=== PATIENT | male | born 1960 | race Hispanic/Latino ===

== ENCOUNTER 2017-11-30 15:38 | Emergency (ER) | payer OTHER ==
[~2017-11-30] VITALS: Ht 172.7 cm; Wt 113.4 kg
--- OUTSIDE RECORDS SUMMARY | 2017-11-30 15:40 | XMS REPORT | Summary of Care ---
Author Author FABIANA KAY D.O. Unknown Address Unknown Phone Unavailable Care Team Providers Care Oil Painter Name Role Phone SJ LANIER M.D. 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, M47.816) Status: Active Osteoarthritis of spine with radiculopathy, lumbar region (721.3, M47.26) Status: Active Upper back pain (724.5, M54.9) Status: Active Osteoarthritis of spine with radiculopathy, cervical region (721.0, M47.22) Status: Active Lumbar disc herniation (722.10, M51.26) Status: Active Central spinal stenosis (724.00, M48.00) Status: Active Dysphagia (787.20, R13.10) Status: Active Encounter to establish care with new doctor (V65.8, Z76.89) Status: Active Right upper quadrant abdominal pain (789.01, R10.11) Status: Active Gastritis (535.50, K29.70) Status: Active Low back pain (724.2, M54.5) Status: Active Acute URI (465.9, J06.9) Status: Active Candidal intertrigo (112.3, B37.2) Status: Active Shortness of breath (786.05, R06.02) Status: Active Sleep apnea (780.57, G47.30) Status: Active Tonsillar enlargement (474.11, J35.1) Status: Active Chronic obstructive pulmonary disease, unspecified COPD type (496, J44.9) Status: Active Chronic pain syndrome (338.4, G89.4) Status: Active External hemorrhoid, bleeding (455.5, K64.4) Status: Active Chronic respiratory failure with hypoxia (518.83, J96.11) Status: Active Allergic rhinitis (477.9, J30.9) Status: Active Deviated nasal septum (470, J34.2) Status: Active Chronic cough (786.2, R05) Status: Active Dysphonia (784.42, R49.0) Status: Active Medications Name Dates Details Fluticasone Propionate 50 MCG/ACT Nasal Suspension USE 1 SPRAY IN EACH NOSTRIL TWICE DAILY. Quantity: 1 SJ LANIER M.D. Start : 05-Oct-2017 Active 9.9 ML Bottle Allergies and Adverse Reactions Name Dates Details No Known Allergies (Allergy) Status: Active Past Medical History Name Dates Details History of backache (V13.59, Z87.39) Status: Resolved History of No pertinent past surgical history Status: Resolved History of Osteoarthritis of spine with radiculopathy, cervical region (721.0, M47.22) Status: Resolved Procedures Procedure Dates Details US Abdomen RUQ 61063 Date: 21-Aug-2017 CT Chest w/wo contrast 95226 Date: 28-Sep-2017 CT Abdomen/Pelvis w/wo contrast 49475 Date: 28-Sep-2017 Immunization Name Dates Details Immunizations not documented Family History Name Dates Details No pertinent family history Comments: Other Status: Active Name Dates Details Family history of hypertension (V17.49, Z82.49) Status: Active Family history of arthritis (V17.7, Z82.61) Status: Active Family history of diabetes mellitus (V18.0, Z83.3) Status: Active Name Dates Details Family history of hypertension (V17.49, Z82.49) Status: Active Family history of arthritis (V17.7, Z82.61) Status: Active Family history of diabetes mellitus (V18.0, Z83.3) Status: Active Social History Name Dates Details - Status: Name Dates Details Never smoker Vital Signs Date Test Result Details 0-Ljn-[id number]:03 BP Systolic 120 mm[Hg] Status: BP Diastolic 82 mm[Hg] Status: Height 68 in Status: Weight 248.5 lb Status: Body Mass Index Calculated 37.78 kg/m2 Status: Body Surface Area Calculated 2.24 m2 Status: Heart Rate 76 /min Status: 34-Bwv-032383:33 BP Systolic 125 mm[Hg] Status: Comments: Location: RUE; Position: Sitting BP Diastolic 86 mm[Hg] Status: Comments: Location: RUE; Position: Sitting Height 68 in Status: Weight 255 lb Status: Body Mass Index Calculated 38.77 kg/m2 Status: Body Surface Area Calculated 2.27 m2 Status: Heart Rate 86 /min Status: Temperature 98 f Status: O2 SAT 100 % Status: :32 BP Systolic 118 mm[Hg] Status: Comments: Location: RUE; Position: Sitting BP Diastolic 86 mm[Hg] Status: Comments: Location: RUE; Position: Sitting Height 68 in Status: Weight 254 lb Status: Body Mass Index Calculated 38.62 kg/m2 Status: Body Surface Area Calculated 2.26 m2 Status: Heart Rate 88 /min Status: Temperature 98 f Status: Comments: Method: Oral Results Date Description Value Details [id number]:00 Tobacco Use Screening Completed DONE [id number] CT Chest/Abd/Pelvis w/wo contrast 92821 Chest/Abd/Pelvis w/wo contrast CT SEE NOTES Comments: CLINICAL HISTORY: R06.02 Shortness of breath;R10.11 Right upper quadrantpain - R06.02 Shortness of breath;R10.11 Right upper quadrant painAGE: 57 yearsGENDER: MaleTECHNIQUE: Pre and postcontrast CT of the chest, abdomen and pelvis wasperformed. Multiplanar reconstructions were reviewed. A total of 100 cc ofOmnipaque 300 was administered intravenously. AEC, mA /kV adjustment by patientsize, and/or iterative reconstructive technique were used, per departmentaldose-optimization program.Creatinine: 0.9DLP: 2937 mGy-cmCOMPARISON : None availableFINDINGS:CHEST:There is no pericardial effusion. Mild to moderate atheroscleroticcalcification of the thoracic aorta and coronary arteries. The heart size iswithin normal limits. No significant mediastinal or hilar adenopathy is seen.There are no focal airspace or interstitial opacities. No pleural effusions. No suspicious pulmonary nodules or masses are identified.The visualized osseous structures are unremarkable.ABDOMEN AND PELVIS :The liver, spleen, pancreas and adrenal glands are unremarkable.The gallbladder is present. There is no evidence of cholelithiasis, gallbladderwall thickening or pericholecystic fluid..There is no CT evidence of hydronephrosis. There is no hydroureter. Nonephrolithiasis.No significant retroperitoneal adenopathy is seen.There is no significant atherosclerotic calcification of the abdominal aorta.There is no evidence of abdominal aortic aneurysm.The large bowel is unremarkable. . The small bowel is normal in caliber withoutevidence of obstruction. The appendix is visualized without evidence ofsurrounding inflammatory change, dilatation or wall thickening. There is no significant free fluid in the abdomen or pelvis.The bladder is partially collapsed. No significant pelvic adenopathy is seen. Degenerative changes in the lumbar spine , mild.IMPRESSION:No CT evidence of primary or metastatic disease in the chest, abdomen orpelvis.Mild to moderate atherosclerotic calcification of the thoracic aorta andcoronary arteries.--Read by: Jasen Campa MDDictated Date/ time: 10/03/17 09:28Electronically Signed by: Jasen Campa MD 10/03/1808:39FINAL REPORT Plan of Care Name Dates Details Planned Observations Planned Goals not documented Planned Encounters Appointment; ARABELLA TUCKER M.D. On: 21-Oct-2017 13:30 Appointment; JANET PATTERSON On: 21-Oct-2017 14:30 Instructions Name Dates Details Instructions not documented Encounters Appointment; LAYO MARSHALL M.D. Encounter Diagnosis: Problem not documented On: 08-Oct-2015 9:00 Appointment; LAYO MARSHALL M.D. Encounter Diagnosis: Problem not documented On: 17-Oct-2015 9:15 Appointment; AMANDA WU M.D. Encounter Diagnosis: Problem not documented On: 23-Oct-2015 11:45 Appointment; LAYO MARSHALL M.D. Encounter Diagnosis: Problem not documented On: 14-Nov-2015 10:30 Appointment; BORA CASTAÑEDA Encounter Diagnosis: Problem not documented On: 14-Apr-2017 11:00 Appointment; LAYO ARNETT Encounter Diagnosis: Problem not documented On: 02-Jun-2017 15:15 Appointment; FABIANA KAY D.O. Encounter Diagnosis: Problem not documented On: 30-Jun-2017 9:20 Appointment; LAYO ARNETT Encounter Diagnosis: Problem not documented On: 17-Jul-2017 10:30 Appointment; FABIANA KAY D.O. Encounter Diagnosis: Problem not documented On: 24-Jul-2017 14:00 Appointment; FABIANA KAY D.O. Encounter Diagnosis: Problem not documented On: 05-Aug-2017 14:00 Appointment; LAYO ARNETT Encounter Diagnosis: Problem not documented On: 25-Aug-2017 14:30 Appointment; FABIANA KAY D.O. Encounter Diagnosis: Problem not documented On: 09-Sep-2017 14:00 Appointment; ARABELLA TUCKER M.D. Encounter Diagnosis: Problem not documented On: 09-Sep-2017 15:00 Appointment; JANET PATTERSON Encounter Diagnosis: Problem not documented On: 09-Sep-2017 16:00 Appointment; FABIANA KAY D.O. Encounter Diagnosis: Problem not documented On: 22-Sep-2017 16:20 Appointment; SJ LANIER M.D. Encounter Diagnosis: Problem not documented On: 05-Oct-2017 9:45
--- OUTSIDE RECORDS SUMMARY | 2017-11-30 15:40 | XMS REPORT ---
Author Author [facility] Address Unknown Phone Unavailable Care Team Providers Care Outbound Sales Executive Name Role Phone Unavailable Unavailable Problems This patient has no known problems. Allergies, Adverse Reactions, Alerts This patient has no known allergies or adverse reactions. Medications This patient has no known medications.
--- OUTSIDE RECORDS SUMMARY | 2017-11-30 15:40 | XMS REPORT | Clinical Summary ---
Author Author [facility] Address Unknown Phone Unavailable Care Team Providers Care Classification Officer Name Role Phone Edilson Roberson MD PCP Allergies No Known Allergies Current Medications Not on file Active Problems Not on file Encounters Date Type Specialty Care Team Description 05/28/2017 Telephone Gastroenterology Adrianne Rogel, RN 05/23/2017 Emergency Emergency Medicine Tyler Spivey, Chronic generalized DO abdominal pain (Primary Dx); Drug-seeking behavior after 11/29/2016 Social History Tobacco Use Types Packs/Day Years Used Date Never Assessed Sex Assigned at Date Recorded Not on file Last Filed Vital Signs Vital Sign Reading Time Taken Blood Pressure 120/69 05/23/2017 5:45 AM [employer] Pulse 72 05/23/2017 5:45 AM [employer] Temperature 36.9 C (98.5 F) 05/23/2017 1:31 AM [employer] Respiratory Rate 18 05/23/2017 5:45 AM [employer] Oxygen Saturation 100% 05/23/2017 5:45 AM [employer] Inhaled Oxygen - - Concentration Weight 129 kg (285 lb) 05/23/2017 1:43 AM [employer] Height 172.7 cm (5' 8") 05/23/2017 1:43 AM [employer] Body Mass Index 43.33 05/23/2017 1:43 AM [employer] Plan of Treatment Health Maintenance Due Date Last Done Comments COLON CANCER SCREENING 2011 SHINGRIX VACCINE (#1) 2011 INFLUENZA VACCINE 2018 Results * Estimated GFR (05/23/2017 3:53 AM) Component Value Ref Range GFR Non Af Amer 77 mL/min/1.73 m2 GFR Af Amer >90 mL/min/1.73 m2 Comment: Chronic kidney disease: <60 mL/min/1.73m2 Kidney failure: <15 mL/min/1.73m2 The estimated GFR is calculated from the IDMS-traceable Modification of Diet in Renal Disease Equation. The accuracy of the calculation is poor when the creatinine is normal. Calculated values >90 mL/min/1.73m2 are not reported. This equation has not been validated in children (<18 years), women, the elderly (>70 years), or ethnic groups other than Caucasians and Americans. Specimen Performing Laboratory Plasma specimen [facility] DEPARTMENT OF PATHOLOGY AND GENOMIC MEDICINE [address] [place] [address] * CBC with platelet and differential (05/23/2017 3:53 AM) Component Value Ref Range WBC 8.10 4.50 - 11.00 k/uL RBC 4.58 4.40 - 6.00 m/uL HGB 14.5 14.0 - 18.0 g/dL HCT 42.6 41.0 - 51.0 % MCV 93.0 82.0 - 100.0 fL MCH 31.7 27.0 - 34.0 pg MCHC 34.0 31.0 - 37.0 g/dL RDW - SD 43.1 37.0 - 55.0 fL MPV 10.5 8.8 - 13.2 fL Platelet count 151 150 - 400 k/uL Nucleated RBC 0.00 /100 WBC Neutrophils 73.9 (H) 39.0 - 69.0 % Lymphocytes 18.0 (L) 25.0 - 45.0 % Monocytes 7.5 0.0 - 10.0 % Eosinophils 0.4 0.0 - 5.0 % Basophils 0.1 0.0 - 1.0 % Immature granulocytes 0.1Comment: "Immature granulocytes" 0.0 - 1.0 % (promyelocytes, myelocytes, metamyelocytes) Specimen Performing Laboratory Blood [facility] DEPARTMENT OF PATHOLOGY AND GENOMIC MEDICINE [address] [place] [id number] * Lipase level (05/23/2017 3:53 AM) Component Value Ref Range Lipase 23 13 - 60 U/L Specimen Performing Laboratory Plasma specimen [facility] DEPARTMENT OF PATHOLOGY AND [facility] [address] [place] [id number] * Lactic acid level (05/23/2017 3:53 AM) Component Value Ref Range Lactic acid 1.0 0.5 - 2.2 mmol/L Specimen Performing Laboratory Plasma specimen [facility]PARTMENT OF PATHOLOGY AND GENOMIC MEDICINE [address] [place] [id number] * Comprehensive metabolic panel (05/23/2017 3:53 AM) Component Value Ref Range Sodium 138 135 - 148 mEq/L Potassium 3.6 3.5 - 5.0 mEq/L Chloride 98 98 - 112 mEq/L CO2 27 24 - 31 mEq/L Anion gap 13 7 - 15 mEq/L Comment: Starting from September , anion gap calculation no longer incorporates potassium. Please note the change. BUN 9 6 - 20 mg/dL Creatinine 1.0 0.7 - 1.2 mg/dL Glucose 94 65 - 99 mg/dL Calcium 9.0 8.3 - 10.2 mg/dL Protein 7.1 6.3 - 8.3 g/dL Comment: 4.6-7.0 g/dL 1 week 4.4-7.6 g/dL 7 months-1year 5.1-7.3 g/dL 1-2 years 5.6-7.5 g/dL >3 years 6.0-8.0 g/dL 18-150 6.3-8.3 g/dL Albumin 3.4 (L) 3.5 - 5.0 g/dL A/G ratio 0.9 0.7 - 3.8 Alkaline phosphatase 67 40 - 129 U/L AST 24 10 - 50 U/L ALT 24 5 - 50 U/L Total bilirubin 0.7 0.0 - 1.2 mg/dL Specimen Performing Laboratory Plasma specimen [facility] DEPARTMENT OF PATHOLOGY AND GENOMIC MEDICINE [address] [place] [address] after 11/29/2016 Insurance Payer Benefit Subscriber ID Type Phone Address Plan / Group [employer] xxxxxxxxx O [employer] [facility] Home: [address] [place] [address] [address]
[2017-11-30 16:48] LABS: BASOPHILS % 0.1 % (0.0-1.0); EOSINOPHILS % 0.2 % (0.0-6.0); HEMOGLOBIN 13.7 g/dL (14.0-18.0); LYMPHOCYTES # (AUTO) 1.1 (1.0-3.2); LYMPHOCYTES % 12.6 % (18.0-39.1); MEAN CORPUSCULAR HEMOGLOBIN 31.8 pg (28-32); MEAN CORPUSCULAR HGB CONC 35.1 g/dL (31-35); MEAN CORPUSCULAR VOLUME 90.5 fL (81-99); MONOCYTES # (AUTO) 0.5 (0.2-0.8); MONOCYTES % 5.5 % (4.4-11.3); NEUTROPHILS # (AUTO) 6.8 (2.1-6.9); NEUTROPHILS % 81.4 % (38.7-80.0); PLATELET COUNT 155 x10e3/uL (140-360); RED BLOOD COUNT 4.31 x10e6/uL (4.3-5.7); RED CELL DISTRIBUTION WIDTH 12.6 % (11.7-14.4)
[2017-11-30 16:53] LABS: INR 1.19; PARTIAL THROMBOPLASTIN TIME 30.5 seconds (23.8-35.5); PROTHROMBIN TIME 14.2 seconds (11.9-14.5)
[2017-11-30 17:00] LABS: ALANINE AMINOTRANSFERASE 14 IU/L (0-55); ALBUMIN 3.5 g/dL (3.5-5.0); ALBUMIN/GLOBULIN RATIO 1.1 (0.8-2.0); ALKALINE PHOSPHATASE 67 IU/L (40-150); ANION GAP 10.5 mmol/L (8-16); BLOOD UREA NITROGEN 14 mg/dL (7-26); BUN/CREATININE RATIO 15 (6-25); CALCIUM 9.3 mg/dL (8.4-10.2); CARBON DIOXIDE 25 mmol/L (22-29); CHLORIDE 108 mmol/L (98-107); CREATINE KINASE 56 IU/L (30-200); CREATININE, SERUM 0.95 mg/dL (0.72-1.25); EST GLOMERULAR FILTRATION RATE > 60 ML/MIN (60-); GLUCOSE 99 mg/dL (74-118); POTASSIUM 3.5 mmol/L (3.5-5.1); SODIUM 140 mmol/L (136-145)
[2017-11-30] MEDS ORDERED: IBUPROFEN 400 MG TAB PO ONE (19:30)
[2017-11-30 19:57] VITALS: BP 122/87
--- NOTE | 2017-12-01 07:36 | Diagnostic Imaging Report ---
PROCEDURE:CHEST 1 VIEW PORTABLE COMPARISON:None. INDICATIONS:CHEST PAIN UNDER LEFT BREAST, COPD, SHORTNESS OF BREATH UPON EXERTION FINDINGS: Lungs are hypoinflated. Perihilar interstitial opacity especially in the infrahilar region. No pleural effusion or pneumothorax. Mild cardiomegaly. No fractures. Unremarkable soft tissue. CONCLUSION:Perihilar/infrahilar interstitial opacity, likely early interstitial edema. Superimposed pneumonia cannot be excluded. Dictated by: Keven Ruiz M.D. on 11/30/2017 at 18:09 Electronically approved by: Keven Ruiz M.D. on 11/30/2017 at 18:09
== END 2017-11-30 20:01 | disposition home or self-care (01) ==
LOC: ER 15:38
DX: R09.1 Pleurisy (principal); J44.9 Chronic obstructive pulmonary disease, unspecified
CPT/HCPCS: 36415; 71045; 80053; 82550; 82553; 83880; 84484; 85025; 85610; 85730; 93005; 99284

== ENCOUNTER 2018-03-13 12:21 | Emergency (ER) | payer OTHER ==
[~2018-03-13] VITALS: Ht 172.7 cm; Wt 102.1 kg
[2018-03-13 13:25] LABS: BASOPHILS % 0.1 % (0.0-1.0); EOSINOPHILS % 0.1 % (0.0-6.0); HEMATOCRIT 42.1 % (38.2-49.6); HEMOGLOBIN 14.5 g/dL (14.0-18.0); LYMPHOCYTES # (AUTO) 1.4 (1.0-3.2); MEAN CORPUSCULAR HGB CONC 34.4 g/dL (31-35); MEAN CORPUSCULAR VOLUME 95.9 fL (81-99); MONOCYTES # (AUTO) 0.4 (0.2-0.8); MONOCYTES % 5.9 % (4.4-11.3); NEUTROPHILS # (AUTO) 5.3 (2.1-6.9); NEUTROPHILS % 74.5 % (38.7-80.0); PLATELET COUNT 153 x10e3/uL (140-360); RED BLOOD COUNT 4.39 x10e6/uL (4.3-5.7); RED CELL DISTRIBUTION WIDTH 12.9 % (11.7-14.4)
[2018-03-13 13:37] LABS: CLARITY,URINE CLEAR (CLEAR); COLOR,URINE YELLOW (YELLOW)
[2018-03-13 13:38] LABS: BILIRUBIN,URINE NEGATIVE (NEGATIVE); KETONES,URINE NEGATIVE (NEGATIVE); LEUKOCYTE ESTERASE ,URINE NEGATIVE (NEGATIVE); NITRITE,URINE NEGATIVE (NEGATIVE); PROTEIN,URINE DIPSTICK NEGATIVE (NEGATIVE); URINE UROBILINOGEN 0.2 mg/dL (0.2 - 1)
[2018-03-13 13:39] LABS: BACTERIA,URINE RARE /HPF; EPITHELIAL CELLS,URINE RARE /LPF; RBC,URINE 0-5 /HPF (0-5); WBC,URINE (MAN) 0-5 /HPF (0-5)
[2018-03-13 13:39] LABS: ALANINE AMINOTRANSFERASE 13 IU/L (0-55); ALBUMIN 3.5 g/dL (3.5-5.0); ALBUMIN/GLOBULIN RATIO 1.1 (0.8-2.0); ALKALINE PHOSPHATASE 55 IU/L (40-150); ANION GAP 14.8 mmol/L (8-16); BLOOD UREA NITROGEN 13 mg/dL (7-26); BUN/CREATININE RATIO 16 (6-25); CALCIUM 9.3 mg/dL (8.4-10.2); CARBON DIOXIDE 24 mmol/L (22-29); CHLORIDE 105 mmol/L (98-107); CREATINE KINASE 39 IU/L (30-200); CREATININE, SERUM 0.82 mg/dL (0.72-1.25); EST GLOMERULAR FILTRATION RATE > 60 ML/MIN (60-); GLUCOSE 104 mg/dL (74-118); POTASSIUM 3.8 mmol/L (3.5-5.1); SODIUM 140 mmol/L (136-145)
--- NOTE | 2018-03-13 14:03 | Diagnostic Imaging Report ---
EXAMINATION: CHEST SINGLE (PORTABLE) INDICATION: \S\SOB/ABD PAIN COMPARISON: Chest x-ray 10/08/2007 FINDINGS: AP view TUBES and LINES: None. LUNGS: Lungs are well inflated. Lungs are clear. There is no evidence of pneumonia or pulmonary edema. PLEURA: No pleural effusion or pneumothorax. HEART AND MEDIASTINUM: The cardiomediastinal silhouette is unremarkable. BONES AND SOFT TISSUES: No acute osseous lesion. Soft tissues are unremarkable. UPPER ABDOMEN: No free air under the diaphragm. IMPRESSION: No acute thoracic abnormality. Signed by: Dr. Keven Ruiz M.D. on 03/13/2018 2:00 PM
[2018-03-13] MEDS ORDERED: FAMOTIDINE 20 MG/2 ML VIAL IV STA (15:17)
[2018-03-13 15:23] LABS: AMYLASE 73 U/L (25-125); LIPASE 31 U/L (8-78)
[2018-03-13] MEDS ORDERED: DICYCLOMINE HCL 20 MG/2 ML VIAL IM ONE (15:30)
== END 2018-03-13 16:20 | disposition home or self-care (01) ==
LOC: ER 12:21
DX: R10.84 Generalized abdominal pain (principal); J44.9 Chronic obstructive pulmonary disease, unspecified; Z87.891 Personal history of nicotine dependence
CPT/HCPCS: 36415; 71045; 80053; 81001; 82150; 82550; 82553; 83690; 84484; 85025; 93005; 99284; J0500

== ENCOUNTER 2018-12-20 15:55 | Emergency (ER) | payer OTHER ==
[~2018-12-20] VITALS: Ht 172.7 cm; Wt 108.9 kg
--- OUTSIDE RECORDS SUMMARY | 2018-12-20 16:12 | XMS REPORT | Continuity of Care Document ---
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 ONCE, Dosing Weight 102.273, kg, Priority: STAT, Start date: 02/24/18 0:19:00 CDT, Stop date: 02/24/18 0:19:00 CDT Inactive 02/24/2018 [facility] Saline Flush 0.9% 10 mL, Route: IVP, Drug Form: INJ, Dosing Weight 102.273, kg, PRN, PRN Line Flush, Start date: 02/23/18 22:09:00 CDT, Duration: 30 day, Stop date: 03/25/18 22:08:00 CDTNotes: (Same as: BD Posiflush) No Longer Active 02/24/2018 [facility] Tramadol 50 Mg Tablet TAKE 1 TABLET BY MOUTH EVERY 6 HOURS NEEDED. No Longer Active 02/22/2018 [facility] Carisoprodol 350 Mg Tablet TAKE 1 TABLET BY MOUTH THREE TIMES DAILY NEEDED. No Longer Active 02/22/2018 [facility] Hydrocodone 10 Mg-Acetaminophen 325 Mg Tablet Kimberly 10 Mg-325 Mg Tablet Take 1 tablet by mouth every 6 hours as needed for Pain. Oral No Longer Active 02/22/2018 [facility] Nystatin 100,000 Unit/Gram Topical Cream APPLY TOPICALLY TO AFFECTED AREA TWICE DAILY. No Longer Active 02/22/2018 [facility] Clarithromycin 500 Mg Tablet Take 1 tablet by mouth 2 times daily for 14 days. Oral No Longer Active 02/22/2018 [facility] traMADol (ULTRAM) 50 mg tablet TAKE 1 TABLET BY MOUTH EVERY 6 HOURS NEEDED. No Longer Active 02/22/2018 [facility] carisoprodol 350 mg tablet TAKE 1 TABLET BY MOUTH THREE TIMES DAILY NEEDED. No Longer Active 02/22/2018 [facility] HYDROcodone-acetaminophen (NORCO) 10-325 mg tablet Take 1 tablet by mouth every 6 hours as needed for Pain. Oral No Longer Active 02/22/2018 [facility] nystatin (MYCOSTATIN) topical cream APPLY TOPICALLY TO AFFECTED AREA TWICE DAILY. No Longer Active 02/22/2018 [facility] clarithromycin (BIAXIN) 500 mg tablet Take 1 tablet by mouth 2 times daily for 14 days. Oral No Longer Active 02/22/2018 [facility] Tramadol 50 Mg Tablet TAKE 1 TABLET BY MOUTH EVERY 6 HOURS NEEDED No Longer Active 02/16/2018 [facility] Carisoprodol 350 Mg Tablet TAKE 1 TABLET BY MOUTH THREE TIMES DAILY NEEDED No Longer Active 02/16/2018 [facility] traMADol (ULTRAM) 50 mg tablet TAKE 1 TABLET BY MOUTH EVERY 6 HOURS NEEDED No Longer Active 02/16/2018 [facility] carisoprodol 350 mg tablet TAKE 1 TABLET BY MOUTH THREE TIMES DAILY NEEDED No Longer Active 02/16/2018 [facility] levofloxacin 500 mg oral tablet 500 mg=1 tab, PO, Daily, X 10 day, # 10 tab, 0 Refill(s), Pharmacy: [facility] No Longer Active 02/15/2018 [facility] Famotidine 20 mg, 2 mL, Route: IVP, Drug form: INJ, ONCE, Dosing Weight 102.273, kg, Priority: STAT, Start date: 02/13/18 3:54:00 CDT, Stop date: 02/13/18 3:54:00 CDTNotes: (Same as: Pepcid) Can be dilute in 5-10cc NS IVP: Slow IV push over at least 2 minutes. Inactive 02/13/2018 [facility] pantoprazole 40 mg, Route: IVP, ONCE, Dosing Weight 102.273, kg, Priority: STAT, Start date: 02/13/18 3:54:00 CDT, Stop date: 02/13/18 3:54:00 CDT Inactive 02/13/2018 [facility] Ondansetron 4 mg, 2 mL, Route: IVP, Drug form: INJ, ONCE, Dosing Weight 102.273, kg, Priority: STAT, Start date: 02/13/18 1:06:00 CDT, Stop date: 02/13/18 1:06:00 CDTNotes: (Same as: Zofran) MEDICATION WASTE Product Size: 4 mg Product Wasted: ___ mg Inactive 02/13/2018 [facility] GI cocktail (aluminum hydroxide/magnesium hydroxide/lidocaine/simethicone) 30 mL, Route: PO, Drug Form: SUSP, Dosing Weight 102.273, kg, ONCE, STAT, Start date: 02/13/18 0:53:00 CDT, Stop date: 02/13/18 0:53:00 CDTNotes: G.I. Cocktail - aluminum hydroxide/magnesium hydroxid e/lidocaine/simethicone Inactive 02/13/2018 [facility] riFAXimin 550 mg oral tablet 550 mg=1 tab, PO, TID, # 42 tab, 0 Refill(s), Pharmacy: [facility] [id number] No Longer Active 02/02/2018 [facility] riFAXimin 550 mg oral tablet 550 mg=1 tab, PO, TID, # 42 tab, 0 Refill(s), Pharmacy: [facility] [id number] No Longer Active 01/22/2018 [facility] plecanatide 3 MG Oral Tablet [Trulance] 3 mg=1 tab, PO, Daily, # 30 tab, 1 Refill(s), Pharmacy: [facility] [id number] No Longer Active 01/22/2018 [facility] Sodium Phosphate, Dibasic 59.3 MG/ML / Sodium Phosphate, Monobasic 161 MG/ML Enema [Fleet Enema] 1 ea, [place], ONCE, # 118 mL, 0 Refill(s) No Longer Active 01/16/2018 [facility] Bisacodyl 10 MG Rectal Suppository [Dulcolax] 10 mg=1 supp, [place], Daily, PRN Constipation, X 10 day, # 10 supp, 0 Refill(s) No Longer Active 01/16/2018 [facility] famotidine 20 mg, 2 mL, Route: IVP, Drug form: INJ, ONCE, Dosing Weight 102.273, kg, Priority: Routine, Start date: 01/15/18 23:00:00 CDT, Stop date: 01/15/18 23:00:00 CDTNotes: . Inactive 01/16/2018 [facility] Famotidine 20 mg, 2 mL, Route: IVP, Drug form: INJ, ONCE, Dosing Weight 102.273, kg, Priority: STAT, Start date: 01/15/18 22:08:00 CDT, Stop date: 01/15/18 22:08:00 CDTNotes: . Inactive 01/16/2018 [facility] Ondansetron 4 mg, 2 mL, Route: IVP, Drug form: INJ, ONCE, Dosing Weight 102.273, kg, Priority: STAT, Start date: 01/15/18 22:08:00 CDT, Stop date: 01/15/18 22:08:00 CDTNotes: (Same as: [place]) MEDICATION WASTE Product Size: 4 mg Product Wasted: ___ mg Inactive 01/16/2018 [facility] Triamcinolone Acetonide 40 Mg/Ml Suspension For Injection Intramuscular Inactive 01/12/2018 [facility] triamcinolone acetonide (KENALOG-40) injection 40 mg Intramuscular Inactive 01/12/2018 [facility] Triamcinolone Acetonide 40 Mg/Ml Suspension For Injection Intramuscular Inactive 01/12/2018 [facility] triamcinolone acetonide (KENALOG-40) injection 40 mg Intramuscular Inactive 01/12/2018 [facility] Carisoprodol 350 Mg Tablet TAKE 1 TABLET BY MOUTH THREE TIMES DAILY NEEDED. No Longer Active 01/12/2018 [facility] Hydrocodone 10 Mg-Acetaminophen 325 Mg Tablet Kimberly 10 Mg-325 Mg Tablet Take 1 tablet by mouth every 6 hours as needed for Pain. Oral No Longer Active 01/12/2018 [facility] Tramadol 50 Mg Tablet TAKE 1 TABLET BY MOUTH EVERY 6 HOURS NEEDED FOR PAIN. No Longer Active 01/12/2018 [facility] Albuterol Sulfate 2.5 Mg/3 Ml (0.083 %) Solution For Nebulization INHALE 3 ML(ONE VAIL) VIA NEBULIZER EVERY 4 HOURS NEEDED FOR WHEEZING OR SHORTNESS OF BREATH. Active 01/12/2018 [facility] Amoxicillin 500 Mg Capsule Take 1 capsule by mouth 3 times daily for 14 days. Oral No Longer Active 01/12/2018 [facility] Hydroxyzine Hcl 10 Mg Tablet Take 1 tablet by mouth every 8 hours as needed for Itching. Oral Active 01/12/2018 [facility] carisoprodol 350 mg tablet TAKE 1 TABLET BY MOUTH THREE TIMES DAILY NEEDED. No Longer Active 01/12/2018 [facility] HYDROcodone-acetaminophen (NORCO) 10-325 mg tablet Take 1 tablet by mouth every 6 hours as needed for Pain. Oral No Longer Active 01/12/2018 [facility] traMADol (ULTRAM) 50 mg tablet TAKE 1 TABLET BY MOUTH EVERY 6 HOURS NEEDED FOR PAIN. No Longer Active 01/12/2018 [facility] albuterol (PROVENTIL) 2.5 mg /3 mL (0.083 %) nebulizer solution INHALE 3 ML(ONE VAIL) VIA NEBULIZER EVERY 4 HOURS NEEDED FOR WHEEZING OR SHORTNESS OF BREATH. No Longer Active 01/12/2018 [facility] amoxicillin (AMOXIL) 500 mg capsule Take 1 capsule by mouth 3 times daily for 14 days. Oral No Longer Active 01/12/2018 [facility] hydrOXYzine (ATARAX) 10 mg tablet Take 1 tablet by mouth every 8 hours as needed for Itching. Oral No Longer Active 01/12/2018 [facility] Famotidine 20 MG Oral Tablet 20 mg=1 tab, PO, BID, # 60 tab, 0 Refill(s) Active 01/02/2018 [facility] Morphine 4 mg, 1 mL, Route: IVP, Drug form: SOLN, ONCE, Dosing Weight 112.636, kg, Priority: STAT, Start date: 01/02/18 0:35:00 CDT, Stop date: 01/02/18 0:35:00 CDTNotes: (Same as:MORPhine Sulfate) Inactive 01/02/2018 [facility] Ondansetron 4 mg, 2 mL, Route: IVP, Drug form: INJ, ONCE, Dosing Weight 112.636, kg, Priority: STAT, Start date: 01/02/18 0:35:00 CDT, Stop date: 01/02/18 0:35:00 CDTNotes: (Same as: Zofran) MEDICATION WASTE Product Size: 4 mg Product Wasted: 0 mg Inactive 01/02/2018 [facility] GI cocktail 30 mL, Route: PO, Drug Form: SUSP, Dosing Weight 112.636, kg, ONCE, STAT, Start date: 01/02/18 0:35:00 CDT, Stop date: 01/02/18 0:35:00 CDTNotes: G.I. Cocktail=antacid with simethicone 22.5 mL - lidocaine viscous 7.5 mL Inactive 01/02/2018 [facility] Pepcid 20 mg, 2 mL, Route: IVP, Drug form: INJ, ONCE, Dosing Weight 112.636, kg, Priority: STAT, Start date: 01/02/18 0:35:00 CDT, Stop date: 01/02/18 0:35:00 CDTNotes: (Same as: Pepcid) Can be dilute in 5-10cc NS IVP: Slow IV push over at least 2 minutes. Inactive 01/02/2018 [facility] Ketorolac 30 Mg/Ml (1 Ml) Injection Solution Intramuscular Inactive 12/08/2017 [facility] Triamcinolone Acetonide 40 Mg/Ml Suspension For Injection Intramuscular Inactive 12/08/2017 [facility] ketorolac (TORADOL) injection 60 mg Intramuscular Inactive 12/08/2017 [facility] triamcinolone acetonide (KENALOG-40) injection 40 mg Intramuscular Inactive 12/08/2017 [facility] Ketorolac 30 Mg/Ml (1 Ml) Injection Solution Intramuscular Inactive 12/08/2017 [facility] Triamcinolone Acetonide 40 Mg/Ml Suspension For Injection Intramuscular Inactive 12/08/2017 [facility] triamcinolone acetonide (KENALOG-40) injection 40 mg Intramuscular Inactive 12/08/2017 [facility] Carisoprodol 350 Mg Tablet TAKE 1 TABLET BY MOUTH THREE TIMES DAILY NEEDED. No Longer Active 12/08/2017 [facility] Hydrocodone 10 Mg-Acetaminophen 325 Mg Tablet Kimberly 10 Mg-325 Mg Tablet Take 1 tablet by mouth every 6 hours as needed for Pain. Oral No Longer Active 12/08/2017 [facility] Tramadol 50 Mg Tablet TAKE 1 TABLET BY MOUTH EVERY 6 HOURS NEEDED FOR PAIN. No Longer Active 12/08/2017 [facility] Nystatin 100,000 Unit/Gram Topical Cream APPLY TOPICALLY TO AFFECTED AREA TWICE DAILY. No Longer Active 12/08/2017 [facility] Mupirocin 2 % Topical Ointment Apply to affected area 3 times daily for 7 days. Topical No Longer Active 12/08/2017 [facility] Omeprazole 40 Mg Capsule,Delayed Release Take 1 capsule by mouth daily. Oral Active 12/08/2017 [facility] carisoprodol 350 mg tablet TAKE 1 TABLET BY MOUTH THREE TIMES DAILY NEEDED. No Longer Active 12/08/2017 [facility] HYDROcodone-acetaminophen (NORCO) 10-325 mg tablet Take 1 tablet by mouth every 6 hours as needed for Pain. Oral No Longer Active 12/08/2017 [facility] traMADol (ULTRAM) 50 mg tablet TAKE 1 TABLET BY MOUTH EVERY 6 HOURS NEEDED FOR PAIN. No Longer Active 12/08/2017 [facility] nystatin (MYCOSTATIN) topical cream APPLY TOPICALLY TO AFFECTED AREA TWICE DAILY. No Longer Active 12/08/2017 [facility] mupirocin (BACTROBAN) 2 % ointment Apply to affected area 3 times daily for 7 days. Topical No Longer Active 12/08/2017 [facility] Omeprazole 40 mg capsule Take 1 capsule by mouth daily. Oral No Longer Active 12/08/2017 [facility] Diazepam 10 Mg Tablet TAKE 1 TABLET BY MOUTH EVERY 12 HOURS NEEDED FOR ANXIETY No Longer Active 12/02/2017 [facility] Carisoprodol 350 Mg Tablet TAKE 1 TABLET BY MOUTH THREE TIMES DAILY NEEDED No Longer Active 12/02/2017 [facility] diazePAM (VALIUM) 10 mg tablet TAKE 1 TABLET BY MOUTH EVERY 12 HOURS NEEDED FOR ANXIETY No Longer Active 12/02/2017 [facility] carisoprodol 350 mg tablet TAKE 1 TABLET BY MOUTH THREE TIMES DAILY NEEDED No Longer Active 12/02/2017 [facility] Albuterol Sulfate 2.5 Mg/3 Ml (0.083 %) Solution For Nebulization INHALE 3 ML(ONE VAIL) VIA NEBULIZER EVERY 4 HOURS NEEDED FOR WHEEZING OR SHORTNESS OF BREATH No Longer Active 11/30/2017 [facility] albuterol (PROVENTIL) 2.5 mg /3 mL (0.083 %) nebulizer solution INHALE 3 ML(ONE VAIL) VIA NEBULIZER EVERY 4 HOURS NEEDED FOR WHEEZING OR SHORTNESS OF BREATH No Longer Active 11/30/2017 [facility] riFAXimin 550 mg oral tablet 550 mg=1 tab, PO, TID, # 42 tab, 0 Refill(s), Pharmacy: [facility] [id number], Any questions please call Abel Chandler [phone] Active 10/28/2017 [facility] riFAXimin 550 mg oral tablet 550 mg=1 tab, PO, TID, # 42 tab, 0 Refill(s), Pharmacy: [facility] Inactive 10/28/2017 [facility] riFAXimin 550 mg oral tablet 550 mg=1 tab, PO, TID, # 42 tab, 0 Refill(s), other No Longer Active 10/27/2017 [facility] Ketorolac 30 Mg/Ml (1 Ml) Injection Solution Intramuscular Inactive 10/13/2017 [facility] Triamcinolone Acetonide 40 Mg/Ml Suspension For Injection Intramuscular Inactive 10/13/2017 [facility] ketorolac (TORADOL) injection 60 mg Intramuscular Inactive 10/13/2017 [facility] triamcinolone acetonide (KENALOG-40) injection 80 mg Intramuscular Inactive 10/13/2017 [facility] Ketorolac 30 Mg/Ml (1 Ml) Injection Solution Intramuscular Inactive 10/13/2017 [facility] Triamcinolone Acetonide 40 Mg/Ml Suspension For Injection Intramuscular Inactive 10/13/2017 [facility] triamcinolone acetonide (KENALOG-40) injection 80 mg Intramuscular Inactive 10/13/2017 [facility] Hydrocodone 10 Mg-Acetaminophen 325 Mg Tablet Kimberly 10 Mg-325 Mg Tablet Take 1 tablet by mouth every 6 hours as needed for Pain. Oral No Longer Active 10/13/2017 [facility] Diazepam 10 Mg Tablet TAKE 1 TABLET BY MOUTH EVERY 12 HOURS NEEDED FOR ANXIETY. No Longer Active 10/13/2017 [facility] Carisoprodol 350 Mg Tablet TAKE 1 TABLET BY MOUTH THREE TIMES DAILY NEEDED. No Longer Active 10/13/2017 [facility] Tramadol 50 Mg Tablet TAKE 1 TABLET BY MOUTH EVERY 6 HOURS NEEDED FOR PAIN. No Longer Active 10/13/2017 [facility] Nystatin 100,000 Unit/Gram Topical Cream APPLY TOPICALLY TO AFFECTED AREA TWICE DAILY. No Longer Active 10/13/2017 [facility] Atorvastatin 40 Mg Tablet Lipitor 40 Mg Tablet Take 1 tablet by mouth at bedtime nightly. Oral Active 10/13/2017 [facility] Cetirizine 10 Mg Tablet Zyrtec 10 Mg Tablet Take 1 tablet by mouth daily. Oral Active 10/13/2017 [facility] Fluticasone 50 McG/Actuation Nasal [place],Suspension Flonase 50 McG/Actuation Nasal [place],Suspension Use 2 Sprays in each nostril daily. Active 10/13/2017 [facility] HYDROcodone-acetaminophen (NORCO) 10-325 mg tablet Take 1 tablet by mouth every 6 hours as needed for Pain. Oral No Longer Active 10/13/2017 [facility] diazePAM (VALIUM) 10 mg tablet TAKE 1 TABLET BY MOUTH EVERY 12 HOURS NEEDED FOR ANXIETY. No Longer Active 10/13/2017 [facility] carisoprodol 350 mg tablet TAKE 1 TABLET BY MOUTH THREE TIMES DAILY NEEDED. No Longer Active 10/13/2017 [facility] traMADol (ULTRAM) 50 mg tablet TAKE 1 TABLET BY MOUTH EVERY 6 HOURS NEEDED FOR PAIN. No Longer Active 10/13/2017 [facility] nystatin (MYCOSTATIN) topical cream APPLY TOPICALLY TO AFFECTED AREA TWICE DAILY. No Longer Active 10/13/2017 [facility] atorvastatin (LIPITOR) 40 mg tablet Take 1 tablet by mouth at bedtime nightly. Oral No Longer Active 10/13/2017 [facility] cetirizine (ZYRTEC) 10 mg tablet Take 1 tablet by mouth daily. Oral No Longer Active 10/13/2017 [facility] fluticasone (FLONASE) 50 mcg/actuation nasal spray Use 2 Sprays in each nostril daily. No Longer Active 10/13/2017 [facility] Fluticasone 50 McG/Actuation Nasal [place],Suspension Flonase 50 McG/Actuation Nasal [place],Suspension Use 2 Sprays in each nostril daily. Active 10/13/2017 [facility] Tramadol 50 Mg Tablet TAKE 1 TABLET BY MOUTH EVERY 6 HOURS NEEDED FOR PAIN No Longer Active 09/24/2017 [facility] Diazepam 10 Mg Tablet TAKE 1 TABLET BY MOUTH EVERY 12 HOURS NEEDED FOR ANXIETY No Longer Active 09/24/2017 [facility] Carisoprodol 350 Mg Tablet TAKE 1 TABLET BY MOUTH THREE TIMES DAILY NEEDED No Longer Active 09/24/2017 [facility] traMADol (ULTRAM) 50 mg tablet TAKE 1 TABLET BY MOUTH EVERY 6 HOURS NEEDED FOR PAIN No Longer Active 09/24/2017 [facility] diazePAM (VALIUM) 10 mg tablet TAKE 1 TABLET BY MOUTH EVERY 12 HOURS NEEDED FOR ANXIETY No Longer Active 09/24/2017 [facility] carisoprodol 350 mg tablet TAKE 1 TABLET BY MOUTH THREE TIMES DAILY NEEDED No Longer Active 09/24/2017 [facility] Tramadol 50 Mg Tablet TAKE 1 TABLET BY MOUTH EVERY 6 HOURS NEEDED FOR PAIN No Longer Active 09/04/2017 [facility] Diazepam 10 Mg Tablet TAKE 1 TABLET BY MOUTH EVERY 12 HOURS NEEDED FOR ANXIETY No Longer Active 09/04/2017 [facility] Carisoprodol 350 Mg Tablet TAKE 1 TABLET BY MOUTH THREE TIMES DAILY NEEDED. No Longer Active 09/04/2017 [facility] traMADol (ULTRAM) 50 mg tablet TAKE 1 TABLET BY MOUTH EVERY 6 HOURS NEEDED FOR PAIN No Longer Active 09/04/2017 [facility] diazePAM (VALIUM) 10 mg tablet TAKE 1 TABLET BY MOUTH EVERY 12 HOURS NEEDED FOR ANXIETY No Longer Active 09/04/2017 [facility] carisoprodol 350 mg tablet TAKE 1 TABLET BY MOUTH THREE TIMES DAILY NEEDED. No Longer Active 09/04/2017 [facility] Carisoprodol 350 Mg Tablet TAKE 1 TABLET BY MOUTH THREE TIMES DAILY NEEDED. No Longer Active 08/18/2017 [facility] carisoprodol 350 mg tablet TAKE 1 TABLET BY MOUTH THREE TIMES DAILY NEEDED. No Longer Active 08/18/2017 [facility] benzonatate 200 MG Oral Capsule [Tessalon] 200 mg=1 cap, PO, TID, X 7 day, # 21 cap, 0 Refill(s) No Longer Active 08/17/2017 [facility] {6 (Azithromycin 250 MG Oral Tablet [Zithromax]) } Pack [Z-PAKS] See Instructions, Take 2 tablets by mouth the first day then 1 tablet by mouth days 2-5., X 5 day, # 6 tab, 0 Refill(s) No Longer Active 08/17/2017 [facility] Sodium Chloride 0.9% (Bolus) IV 500 mL, Infuse Over: 1 hr, Route: IV, ONCE, Priority: STAT, Dosing Weight 117.273 kg, Start date: 08/17/17 16:32:00 CARDIOLOGY RN, Stop date: 08/17/17 16:32:00 CARDIOLOGY RN Inactive 08/17/2017 [facility] Morphine 4 mg, Route: PO, Drug form: SOLN, ONCE, Dosing Weight 117.273, kg, Priority: STAT, Start date: 08/17/17 16:27:00 CARDIOLOGY RN, Stop date: 08/17/17 16:27:00 CARDIOLOGY RN Inactive 08/17/2017 [facility] Zofran 4 mg, Route: IVP, Drug form: INJ, ONCE, Dosing Weight 117.273, kg, Priority: STAT, Start date: 08/17/17 16:26:00 CARDIOLOGY RN, Stop date: 08/17/17 16:26:00 CARDIOLOGY RN Inactive 08/17/2017 [facility] Ondansetron 4 mg, Route: IVP, Drug form: INJ, ONCE, Dosing Weight 117.273, kg, Priority: STAT, Start date: 08/17/17 16:15:00 CARDIOLOGY RN, Stop date: 08/17/17 16:15:00 CARDIOLOGY RN Inactive 08/17/2017 [facility] Morphine 2 mg, Route: IVP, ONCE, Dosing Weight 117.273, kg, Priority: STAT, Start date: 08/17/17 16:15:00 CARDIOLOGY RN, Stop date: 08/17/17 16:15:00 CARDIOLOGY RN Inactive 08/17/2017 [facility] Ceftriaxone 1 gm, Route: IVPB, ONCE, Dosing Weight 117.273, kg, Priority: STAT, Start date: 08/17/17 16:15:00 CARDIOLOGY RN, Stop date: 08/17/17 16:15:00 CARDIOLOGY RN, ABX Indication: Non-PNA Respiratory Tract Infection Inactive 08/17/2017 [facility] Benzonatate 100 Mg Capsule TAKE 2 CAPSULES BY MOUTH THREE TIMES DAILY NEEDED FOR COUGH Active 08/17/2017 [facility] benzonatate (TESSALON) 100 mg capsule TAKE 2 CAPSULES BY MOUTH THREE TIMES DAILY NEEDED FOR COUGH No Longer Active 08/17/2017 [facility] Diazepam 10 Mg Tablet TAKE 1 TABLET BY MOUTH EVERY 12 HOURS NEEDED FOR ANXIETY No Longer Active 08/11/2017 [facility] Tramadol 50 Mg Tablet TAKE 1 TABLET BY MOUTH EVERY 6 HOURS NEEDED FOR PAIN No Longer Active 08/11/2017 [facility] diazePAM (VALIUM) 10 mg tablet TAKE 1 TABLET BY MOUTH EVERY 12 HOURS NEEDED FOR ANXIETY No Longer Active 08/11/2017 [facility] traMADol (ULTRAM) 50 mg tablet TAKE 1 TABLET BY MOUTH EVERY 6 HOURS NEEDED FOR PAIN No Longer Active 08/11/2017 [facility] Nystatin 100,000 Unit/Gram Topical Cream APPLY TOPICALLY TO AFFECTED AREA TWICE DAILY No Longer Active 08/04/2017 [facility] nystatin (MYCOSTATIN) topical cream APPLY TOPICALLY TO AFFECTED AREA TWICE DAILY No Longer Active 08/04/2017 [facility] dexlansoprazole 60 MG Enteric Coated Capsule [Dexilant] 60 mg=1 cap, PO, Daily, # 3 box, 0 Refill(s), given to patient Active 07/27/2017 [facility] Famotidine 20 MG Oral Tablet 20 mg=1 tab, PO, BID, # 60 tab, 0 Refill(s) Active 07/10/2017 [facility] Valium 5 mg, 1 tab, Route: PO, Drug form: TAB, ONCE, Dosing Weight 138.636, kg, Priority: STAT, Start date: 07/10/17 15:39:00 CARDIOLOGY RN, Stop date: 07/10/17 15:39:00 CSTNotes: (Same as: Valium) Inactive 07/10/2017 [facility] Sucralfate 100 MG/ML Oral Suspension [Carafate] 1 gm=10 ml, PO, QID-Before Meals, # 400 ml, 0 Refill(s) Active 07/10/2017 [facility] Acetaminophen 300 MG / Codeine Phosphate 30 MG Oral Tablet [Tylenol with Codeine #3] 1 tab, PO, Q6H, PRN Pain, X 7 day, # 28 tab, 0 Refill(s) No Longer Active 07/10/2017 [facility] Ondansetron 4 MG Disintegrating Tablet [Zofran] 4 mg=1 tab, PO, BID, PRN Nausea and Vomiting, Dissolve tab under tongue, # 10 tab, 0 Refill(s) Active 07/10/2017 [facility] Morphine 6 mg, 1.5 mL, Route: IVP, Drug form: SOLN, ONCE, Dosing Weight 138.636, kg, Priority: STAT, Start date: 07/10/17 14:33:00 CARDIOLOGY RN, Stop date: 07/10/17 14:33:00 CSTNotes: (Same as:MORPhine Sulfate) Inactive 07/10/2017 [facility] Valium 5 mg, Route: PO, ONCE, Dosing Weight 138.636, kg, Start date: 07/10/17 13:58:00 CARDIOLOGY RN, Stop date: 07/10/17 13:58:00 CARDIOLOGY RN Inactive 07/10/2017 [facility] Valium 5 mg, Route: IVP, Drug form: INJ, ONCE, Dosing Weight 138.636, kg, Priority: STAT, Start date: 07/10/17 13:54:00 CARDIOLOGY RN, Stop date: 07/10/17 13:54:00 CARDIOLOGY RN Inactive 07/10/2017 [facility] GI cocktail 30 mL, Route: PO, Drug Form: SUSP, Dosing Weight 138.636, kg, ONCE, STAT, Start date: 07/10/17 13:53:00 CARDIOLOGY RN, Stop date: 07/10/17 13:53:00 CSTNotes: G.I. Cocktail=antacid with simethicone 22.5 mL - lidocaine viscous 7.5 mL Inactive 07/10/2017 [facility] Pepcid 20 mg, 2 mL, Route: IV, Drug form: INJ, ONCE, Dosing Weight 138.636, kg, Start date: 07/10/17 13:52:00 CARDIOLOGY RN, Stop date: 07/10/17 13:52:00 CARDIOLOGY RN Inactive 07/10/2017 [facility] Aspirin 324 mg, Route: CHEW, Drug form: CHEWTAB, ONCE, Dosing Weight 138.636, kg, Priority: STAT, Start date: 07/10/17 13:50:00 CARDIOLOGY RN, Stop date: 07/10/17 13:50:00 CARDIOLOGY RN Inactive 07/10/2017 [facility] Zofran 4 mg, Route: IVP, Drug form: INJ, ONCE, Dosing Weight 138.636, kg, Priority: STAT, Start date: 07/10/17 13:49:00 CARDIOLOGY RN, Stop date: 07/10/17 13:49:00 CARDIOLOGY RN Inactive 07/10/2017 [facility] Morphine 4 mg, Route: IVP, ONCE, Dosing Weight 138.636, kg, Priority: STAT, Start date: 07/10/17 13:49:00 CARDIOLOGY RN, Stop date: 07/10/17 13:49:00 CARDIOLOGY RN Inactive 07/10/2017 [facility] Carisoprodol 350 Mg Tablet TAKE 1 TABLET BY MOUTH THREE TIMES DAILY NEEDED No Longer Active 06/30/2017 [facility] Diazepam 10 Mg Tablet TAKE 1 TABLET BY MOUTH EVERY 12 HOURS NEEDED FOR ANXIETY No Longer Active 06/30/2017 [facility] Tramadol 50 Mg Tablet TAKE 1 TABLET BY MOUTH EVERY 6 HOURS NEEDED FOR PAIN No Longer Active 06/30/2017 [facility] carisoprodol 350 mg tablet TAKE 1 TABLET BY MOUTH THREE TIMES DAILY NEEDED No Longer Active 06/30/2017 [facility] diazePAM (VALIUM) 10 mg tablet TAKE 1 TABLET BY MOUTH EVERY 12 HOURS NEEDED FOR ANXIETY No Longer Active 06/30/2017 [facility] traMADol (ULTRAM) 50 mg tablet TAKE 1 TABLET BY MOUTH EVERY 6 HOURS NEEDED FOR PAIN No Longer Active 06/30/2017 [facility] Famotidine 20 MG Oral Tablet [Pepcid] 20 mg=1 tab, PO, BID, # 60 tab, 0 Refill(s) Active 06/17/2017 [facility] albuterol 90 mcg/inh inhalation aerosol 2 puff, INHALATION, QID, # 34 gm, 0 Refill(s) Active 06/17/2017 [facility] Atorvastatin 40 Mg Tablet Lipitor 40 Mg Tablet Take 1 tablet by mouth at bedtime nightly. Oral No Longer Active 06/08/2017 [facility] atorvastatin (LIPITOR) 40 mg tablet Take 1 tablet by mouth at bedtime nightly. Oral No Longer Active 06/08/2017 [facility] Diazepam 10 Mg Tablet TAKE 1 TABLET BY MOUTH EVERY 12 HOURS NEEDED FOR ANXIETY No Longer Active 06/02/2017 [facility] Carisoprodol 350 Mg Tablet TAKE 1 TABLET BY MOUTH THREE TIMES DAILY NEEDED No Longer Active 06/02/2017 [facility] Ketorolac 30 Mg/Ml (1 Ml) Injection Solution Intramuscular Inactive 05/07/2017 [facility] Ketorolac 60 Mg/2 Ml Intramuscular Solution Intramuscular Inactive 05/07/2017 [facility] triamcinolone acetonide (KENALOG-40) injection 40 mg Intramuscular Inactive 05/07/2017 [facility] Cetirizine 10 Mg Tablet Zyrtec 10 Mg Tablet Take 1 tablet by mouth daily. Oral No Longer Active 05/07/2017 [facility] Fluticasone 50 McG/Actuation Nasal [place],Suspension Flonase 50 McG/Actuation Nasal [place],Suspension Use 2 Sprays in each nostril daily. No Longer Active 05/07/2017 [facility] cetirizine (ZYRTEC) 10 mg tablet Take 1 tablet by mouth daily. Oral No Longer Active 05/07/2017 [facility] fluticasone (FLONASE) 50 mcg/actuation nasal spray Use 2 Sprays in each nostril daily. No Longer Active 05/07/2017 [facility] Fluticasone 50 McG/Actuation Nasal [place],Suspension Flonase 50 McG/Actuation Nasal [place],Suspension Use 2 Sprays in each nostril daily. No Longer Active 05/07/2017 [facility] POLYETHYLENE GLYCOL 3350 142 MG/ML Oral Solution [Miralax] 17 gm, PO, Daily, # 255 gm, 0 Refill(s), Pharmacy: [facility]/pharmacy #[id number] Active 04/21/2017 [facility] linaclotide 0.145 MG Oral Capsule [Linzess] 145 microgram=1 cap, PO, Daily, 30 minutes prior to the first meal of the day, # 30 cap, 0 Refill(s), Pharmacy: [facility]/pharmacy #[id number] Active 04/21/2017 [facility] Protonix 40 mg, Route: IV, Drug form: INJ, BID, Dosing Weight 135.909, kg, Start date: 04/20/17 9:00:00 CDT, Duration: 30 day, Stop date: 05/19/17 17:00:00 CSTNotes: For IV push reconstitute with 10 ml 0.9% sodi um chloride and push over 2 minutes. (Same as: Protonix) No Longer Active 04/20/2017 [facility] Breo Ellipta 100 mcg-25 mcg inhalation powder 1 puff, Route: INHALATION, Drug Form: PWDR, Dosing Weight 135.909, kg, RDaily, Start date: 04/20/17 8:00:00 CDT, Duration: 30 day, Stop date: 05/19/17 8:00:00 CARDIOLOGY RN No Longer Active 04/20/2017 [facility] Albuterol 0.833 MG/ML / Ipratropium [place] 0.167 MG/ML Inhalant Solution [DuoNeb] 3 ml, Route: NEB, Drug Form: SOLN, Dosing Weight 135.909, kg, PRN, PRN Respiratory Protocol, Start date: 04/19/17 19:04:00 CDT, Duration: 30 day, Stop date: 05/19/17 18:03:00 CSTNotes: (Same as: Duoneb) No Longer Active 04/20/2017 [facility] Enoxaparin 40 mg, 0.4 mL, Route: SUB-Q, Drug form: INJ, [id number], Dosing Weight 135.909, kg, Consider for obese patients, Start date: 04/19/17 18:00:00 CDT, Duration: 30 day, Stop date: 05/19/17 8:00:00 CSTNotes: (Same as: Lovenox) No Longer Active 04/19/2017 [facility] Docusate Sodium 50 MG / sennosides, [facility] 8.6 MG Oral Tablet 1 tab, Route: PO, Drug Form: TAB, Dosing Weight 135.909, kg, BID, Start date: 04/19/17 18:00:00 CDT, Duration: 30 day, Stop date: 05/19/17 17:00:00 CSTNotes: (Same as Senokot-S) Equiv. to Kimberly-Colace. No Longer Active 04/19/2017 [facility] Miralax 17 gm, 1 pkt, Route: PO, Drug form: PWDR, BID, Dosing Weight 135.909, kg, Start date: 04/19/17 18:00:00 CDT, Duration: 30 day, Stop date: 05/19/17 17:00:00 CSTNotes: Dissolve in 8 oz of water or juice. (Same as: Miralax) No Longer Active 04/19/2017 [facility] Ativan 0.5 mg, 0.25 mL, Route: IV, Drug form: INJ, BID, Dosing Weight 135.909, kg, PRN as needed for anxiety, Start date: 04/19/17 17:51:00 CDT, Duration: 30 day, Stop date: 05/19/17 17:50:00 CSTNotes: (Same as: Ativan) No Longer Active 04/19/2017 [facility] 200 ACTUAT Albuterol 0.09 MG/ACTUAT Metered Dose Inhaler [ProAir HFA] 2 puff, Route: INHALATION, Drug Form: AERO/A, Dosing Weight 135.909, kg, Q4H, PRN Wheezing, Start date: 04/19/17 17:50:00 CDT, Duration: 30 day, Stop date: 05/19/17 17:49:00 CSTNotes: Same as: Ventolin HFA WASTE: Aerosol - Return to Pharmacy No Longer Active 04/19/2017 [facility] mineral oil 1 btl, Route: W[place], Drug Form: RANDALL, Dosing Weight 135.909, kg, ONCE, Start date: 04/19/17 17:49:00 CDT, Stop date: 04/19/17 17:49:00 CDT Inactive 04/19/2017 [facility] sodium chloride 0.9% 1000 ml INJ 1,000 mL 1,000 mL, Rate: 100 ml/hr, Infuse over: 10 hr, Route: IV, Dosing Weight 135.909 kg, Total Volume: 1,000, Start date: 04/19/17 17:43:00 CDT, Duration: 30 day, Stop date: 05/19/17 17:42:00 CARDIOLOGY RN No Longer Active 04/19/2017 [facility] Morphine 2 mg, 1 mL, Route: IVP, Drug form: SOLN, Q4H, Dosing Weight 135.909, kg, PRN Pain Score 7-10, Start date: 04/19/17 17:41:00 CDT, Duration: 30 day, Stop date: 05/19/17 17:40:00 CARDIOLOGY RN No Longer Active 04/19/2017 [facility] Ondansetron 4 mg, 2 mL, Route: IVP, Drug form: INJ, Q6H, Dosing Weight 135.909, kg, PRN Nausea & Vomiting, Start date: 04/19/17 17:41:00 CDT, Duration: 30 day, Stop date: 05/19/17 17:40:00 CSTNotes: (Same as: Pillo) MEDICATION WASTE Product Size: 4 mg Product Wasted: ___ mg No Longer Active 04/19/2017 [facility] Protonix 40 mg, Route: IVP, Drug form: INJ, ONCE, Dosing Weight 135.909, kg, Priority: STAT, Start date: 04/19/17 16:50:00 CDT, Stop date: 04/19/17 16:50:00 CDTNotes: For IV push reconstitute with 10 ml 0.9% sod ium chloride and push over 2 minutes. (Same as: Protonix) Inactive 04/19/2017 [facility] Ativan 1 mg, Route: IVP, Drug form: INJ, ONCE, Dosing Weight 135.909, kg, Priority: STAT, Start date: 04/19/17 15:15:00 CDT, Stop date: 04/19/17 15:15:00 CDT Inactive 04/19/2017 [facility] Famotidine 20 mg, 2 mL, Route: IVP, Drug form: INJ, ONCE, Dosing Weight 135.909, kg, Priority: STAT, Start date: 04/19/17 14:37:00 CDT, Stop date: 04/19/17 14:37:00 CDTNotes: (Same as: Pepcid) Can be dilute in 5-10cc NS IVP: Slow IV push over at least 2 minutes. Inactive 04/19/2017 [facility] GI cocktail 30 mL, Route: PO, Drug Form: SUSP, Dosing Weight 135.909, kg, ONCE, STAT, Start date: 04/19/17 14:37:00 CDT, Stop date: 04/19/17 14:37:00 CDTNotes: G.I. Cocktail=antacid with simethicone 22.5 mL - lidocaine viscous 7.5 mL Inactive 04/19/2017 [facility] Ondansetron 4 mg, 2 mL, Route: IVP, Drug form: INJ, ONCE, Dosing Weight 135.909, kg, Priority: STAT, Start date: 04/19/17 14:37:00 CDT, Stop date: 04/19/17 14:37:00 CDTNotes: (Same as: Zofran) MEDICATION WASTE Product Size: 4 mg Product Wasted: ___ mg Inactive 04/19/2017 [facility] Morphine 4 mg, 1 mL, Route: IVP, Drug form: SOLN, ONCE, Dosing Weight 135.909, kg, Priority: STAT, Start date: 04/19/17 14:37:00 CDT, Stop date: 04/19/17 14:37:00 CDTNotes: (Same as:MORPhine Sulfate) Inactive 04/19/2017 [facility] Saline Flush 0.9% 10 mL, Route: IVP, Drug Form: INJ, Dosing Weight 135.909, kg, PRN, PRN Line Flush, Start date: 04/19/17 14:37:00 CDT, Duration: 30 day, Stop date: 05/19/17 13:36:00 CARDIOLOGY RN Inactive 04/19/2017 [facility] Saline Flush 0.9% 10 mL, Route: IVP, Drug Form: INJ, Dosing Weight 135.909, kg, PRN, PRN Line Flush, Start date: 04/19/17 13:18:00 CDT, Duration: 30 day, Stop date: 05/19/17 12:17:00 CSTNotes: (Same as: BD Posiflush) Inactive 04/19/2017 [facility] triamcinolone acetonide (KENALOG-40) injection 80 mg Intramuscular Inactive 04/10/2017 [facility] Ketorolac 60 Mg/2 Ml Intramuscular Solution Intramuscular Inactive 04/10/2017 [facility] Ceftriaxone 1 Gram Solution For Injection Intramuscular Inactive 04/10/2017 [facility] Lidocaine 10 Mg/Ml (1 %) Injection Solution Injection Inactive 04/10/2017 [facility] Azithromycin 500 Mg Tablet Zithromax 500 Mg Tablet Take 1 tablet by mouth daily for 10 days. Oral No Longer Active 04/10/2017 [facility] Diazepam 10 Mg Tablet TAKE ONE TABLET BY MOUTH EVERY 12 HOURS NEEDED FOR ANXIETY. No Longer Active 04/10/2017 [facility] Carisoprodol 350 Mg Tablet Take 1 tablet by mouth 3 times daily as needed for Other (prn back spasm). Oral No Longer Active 04/10/2017 [facility] Hydrocodone 10 Mg-Acetaminophen 325 Mg Tablet Kimberly 10 Mg-325 Mg Tablet Take 1 tablet by mouth every 6 hours as needed for Pain. Oral No Longer Active 04/10/2017 [facility] HYDROcodone-acetaminophen (NORCO) 10-325 mg tablet Take 1 tablet by mouth every 6 hours as needed for Pain. Oral No Longer Active 04/10/2017 [facility] GI cocktail 30 mL, Route: PO, Dosing Weight 138.636, kg, ONCE, STAT, Start date: 04/07/17 23:24:00 CDT, Stop date: 04/07/17 23:24:00 CDT Inactive 04/08/2017 [facility] Ondansetron 4 MG Disintegrating Tablet [Zofran] 4 mg=1 tab, PO, TID, PRN Nausea, Dissolve tab under tongue, # 30 tab, 0 Refill(s) Active 04/08/2017 [facility] POLYETHYLENE GLYCOL 3350 142 MG/ML Oral Solution [Miralax] 17 gm, PO, Daily, X 15 day, # 255 gm, 0 Refill(s) Active 04/08/2017 [facility] Ondansetron 4 mg, Route: IVP, Drug form: INJ, ONCE, Dosing Weight 138.636, kg, Priority: STAT, Start date: 04/07/17 20:24:00 CDT, Stop date: 04/07/17 20:24:00 CDT Inactive 04/08/2017 [facility] pantoprazole 40 mg, Route: IVP, ONCE, Dosing Weight 138.636, kg, Priority: STAT, Start date: 04/07/17 20:24:00 CDT, Stop date: 04/07/17 20:24:00 CDT Inactive 04/08/2017 [facility] Sodium Chloride 0.9% (Bolus) IV 1,000 mL, Infuse Over: 1 hr, Route: IV, ONCE, Priority: STAT, Dosing Weight 138.636 kg, Start date: 04/07/17 20:24:00 CDT, Duration: 1 doses or times, Stop date: 04/07/17 20:24:00 CDT Inactive 04/08/2017 [facility] Tylenol 650 mg, 2 tab, Route: PO, Drug form: TAB, Q6H, Dosing Weight 139.545, kg, PRN Pain 1-3/Temp > 100.4 F, Start date: 03/25/17 13:43:00 CDT, Duration: 30 day, Stop date: 04/24/17 13:42:00 CDTNotes: Do not exceed 4 gm/day. (Same as: Tylenol) Inactive 03/25/2017 [facility] Docusate 100 mg, Route: PO, BID, Dosing Weight 139.545, kg, Start date: 03/25/17 9:00:00 CDT, Duration: 30 day, Stop date: 04/23/17 17:00:00 CDT No Longer Active 03/25/2017 [facility] sodium chloride 0.9% 1000 ml INJ 1,000 mL 1,000 mL, Rate: 75 ml/hr, Infuse over: 13.3 hr, Route: IV, Dosing Weight 139.545 kg, Total Volume: 1,000, Start date: 03/24/17 21:14:00 CDT, Duration: 30 day, Stop date: 04/23/17 21:13:00 CDT No Longer Active 03/25/2017 [facility] 200 ACTUAT Albuterol 0.09 MG/ACTUAT Metered Dose Inhaler [ProAir HFA] 2 puff, INHALATION, Q4H, PRN as needed for wheezing, 0 Refill(s) Active 03/25/2017 [facility] Breo Ellipta 100 mcg-25 mcg inhalation powder 1 puff, INHALATION, RDaily, 0 Refill(s) Active 03/25/2017 [facility] Acetaminophen 325 MG / Hydrocodone Bitartrate 10 MG Oral Tablet 1 tab, PO, Q6H, PRN Pain Score 6-10, 0 Refill(s) Active 03/25/2017 [facility] pantoprazole 40 mg oral enteric coated tablet 40 mg=1 tab, PO, Daily Active 03/25/2017 [facility] Furosemide 40 MG Oral Tablet 40 mg=1 tab, PO, Daily, 0 Refill(s) Active 03/25/2017 [facility] carisoprodol 350 mg oral tablet 350 mg=1 tab, PO, TID, PRN Muscle Spasms, 0 Refill(s) Active 03/25/2017 [facility] Ondansetron 4 mg, 2 mL, Route: IVP, Drug form: INJ, Q6H, Dosing Weight 139.545, kg, PRN Nausea & Vomiting, Start date: 03/24/17 21:07:00 CDT, Duration: 30 day, Stop date: 04/23/17 21:06:00 CDTNotes: (Same as: Zofran) MEDICATION WASTE Product Size: 4 mg Product Wasted: ___ mg No Longer Active 03/25/2017 [facility] Morphine 2 mg, 1 mL, Route: IVP, Drug form: SOLN, Q4H, Dosing Weight 139.545, kg, PRN Pain Score 7-10, Start date: 03/24/17 21:07:00 CDT, Duration: 30 day, Stop date: 04/23/17 21:06:00 CDT No Longer Active 03/25/2017 [facility] magnesium citrate 58.2 MG/ML Oral Solution 300 ml, Route: PO, Drug Form: LIQ, Dosing Weight 139.545, kg, ONCE, Start date: 03/24/17 20:28:00 CDT, Stop date: 03/24/17 20:28:00 CDTNotes: (Same as: Citrate of Magnesia) Concentration: 1.745 gm / 30 mL Inactive 03/25/2017 [facility] Golytely 4,000 ml, Route: PO, Drug Form: PDR/REC, Dosing Weight 139.545, kg, ONCE, Start date: 03/24/17 20:28:00 CDT, Duration: 1 doses or times, Stop date: 03/24/17 20:28:00 CDTNotes: (polyethylene glycol elect rolyte solution 4 Liter bottle) (Same as: Golytely, Colyte) Inactive 03/25/2017 [facility] Saline Flush 0.9% 10 mL, Route: IVP, Drug Form: INJ, Dosing Weight 139.545, kg, PRN, PRN Line Flush, Start date: 03/24/17 15:32:00 CDT, Duration: 30 day, Stop date: 04/23/17 15:31:00 CDTNotes: (Same as: BD Posiflush) No Longer Active 03/24/2017 [facility] Furosemide 40 MG Oral Tablet [Lasix] 40 mg, 1 tab, Route: PO, Drug form: TAB, Daily, Dosing Weight 142.727, kg, Start date: 03/11/17 9:00:00 CDT, Duration: 30 day, Stop date: 04/09/17 9:00:00 CDTNotes: (Same as: Lasix) May cause GI upset. Give with food or milk. No Longer Active 03/11/2017 [facility] Ergocalciferol 50,000 IntlUnit, 1 cap, Route: PO, Drug form: CAP, Daily, Dosing Weight 142.727, kg, Start date: 03/11/17 9:00:00 CDT, Duration: 3 day, Stop date: 03/13/17 9:00:00 CDTNotes: (Same as: Vitamin D) "Do Not Crush" No Longer Active 03/11/2017 [facility] Breo Ellipta Route: INHALATION, Dosing Weight 142.727, kg, Daily, Start date: 03/11/17 9:00:00 CDT, Duration: 30 day, Stop date: 04/09/17 9:00:00 CDT No Longer Active 03/11/2017 [facility] Please bring pt's own breo ellipta to rx for label Please bring pt's own breo ellipta to rx for label, ATTN:RN, Drug form: MISC, Route: MISC, QSHIFT, 03/11/17 0:00:00 CDT, Duration: 30 day, Stop date: 04/09/17 16:00:00 CDT No Longer Active 03/11/2017 [facility] LORazepam 0.5 mg oral tablet 0.5 mg=1 tab, PO, TID, PRN Anxiety, X 7 day, # 21 tab, 0 Refill(s) Active 03/10/2017 [facility] Ergocalciferol 21526 UNT Oral Capsule 50,000 IntlUnit=1 cap, PO, qWeek, # 8 cap, 0 Refill(s), Pharmacy: [facility]/pharmacy #[id number] Active 03/10/2017 [facility] Aspirin 81 MG Chewable Tablet 81 mg=1 tab, PO, Daily, # 30 tab, 0 Refill(s), Pharmacy: [facility]/pharmacy #[id number] Active 03/10/2017 [facility] Sucralfate 1 gm, 1 tab, Route: PO, Drug form: TAB, BID- Before Meals, Dosing Weight 142.727, kg, Start date: 03/10/17 16:30:00 CDT, Duration: 30 day, Stop date: 04/09/17 7:30:00 CDTNotes: May interfere w/enteral feeds - Take 1 hr before or 2 hr after antacids, dairy pdt, meals & minerals - On empty stomach. For patients unable to swallow tablet, dissolve in 10mL - 30mL of water or juice and stir before giving. (Same As: Carafate) Inactive 03/10/2017 [facility] Lorazepam 0.5 mg, 1 tab, Route: PO, Drug form: TAB, TID, Dosing Weight 142.727, kg, PRN Anxiety, Start date: 03/10/17 12:06:00 CDT, Duration: 30 day, Stop date: 04/09/17 12:05:00 CDTNotes: (Same as: Ativan) Inactive 03/10/2017 [facility] Nitroglycerin 0.4 MG Sublingual Tablet [Nitrostat] 0.4 mg, 1 tab, Route: SL, Drug form: TAB, Q5Min, Dosing Weight 142.727, kg, PRN Chest Pain, Start date: 03/10/17 9:22:00 CDT, Duration: 3 doses or times, Stop date: Limited # of timesNotes: (Same as:Nitroquick, Nitrostat) "Do Not Crush" Sublingual tablet Inactive 03/10/2017 [facility] Lopressor 2.5 mg, 2.5 mL, Route: IVP, Drug form: INJ, Q2H, Dosing Weight 142.727, kg, PRN Tachycardia, Start date: 03/10/17 9:22:00 CDT, Duration: 30 day, Stop date: 04/09/17 9:21:00 CDTNotes: (Same as: Lopressor) Push over 2 minutes Inactive 03/10/2017 [facility] Hydralazine 10 mg, 0.5 mL, Route: IV, Drug form: INJ, Q4H, Dosing Weight 142.727, kg, PRN Hypertension, Start date: 03/10/17 9:21:00 CDT, Duration: 30 day, Stop date: 04/09/17 9:20:00 CDTNotes: (Same as: Apresoline) Push over 5 minutes Inactive 03/10/2017 [facility] Rocephin 1 gm, Route: IV, Q12H, Dosing Weight 142.727, kg, Start date: 03/10/17 9:00:00 CDT, Duration: 30 day, Stop date: 04/08/17 21:00:00 CDT, ABX Indication: PneumoniaNotes: (Same As: Rocephin). Use with 100 mL NS and infuse over 30 min MEDICATION WASTE Product Size: 1000 mg Product Wasted: ___ mg Inactive 03/10/2017 [facility] Saline Flush 0.9% 10 ml, Route: IVP, Drug Form: INJ, Dosing Weight 142.727, kg, Q12H, Start date: 03/10/17 9:00:00 CDT, Duration: 30 day, Stop date: 04/08/17 21:00:00 CDTNotes: Same as: BD Posiflush Sterile Inactive 03/10/2017 [facility] Aspirin 81 MG Chewable Tablet 81 mg, 1 tab, Route: PO, Drug form: CHEWTAB, Daily, Dosing Weight 142.727, kg, Start date: 03/10/17 9:00:00 CDT, Duration: 30 day, Stop date: 04/08/17 9:00:00 CDTNotes: Take with food. Inactive 03/10/2017 [facility] Saline Flush 0.9% 10 ml, Route: IVP, Drug Form: INJ, Dosing Weight 142.727, kg, PRN, PRN Line Flush, Start date: 03/10/17 7:03:00 CDT, Duration: 30 day, Stop date: 04/09/17 7:02:00 CDTNotes: Same as: BD Posiflush Sterile Inactive 03/10/2017 [facility] Ondansetron 4 mg, 1 tab, Route: PO, Drug form: TAB, Q8H, Dosing Weight 142.727, kg, PRN Nausea & Vomiting, Start date: 03/10/17 7:03:00 CDT, Duration: 30 day, Stop date: 04/09/17 7:02:00 CDTNotes: (Same as: Zofran) Inactive 03/10/2017 [facility] Nitroglycerin 0.4 mg, 1 tab, Route: SL, Drug form: TAB, Q5Min, Dosing Weight 142.727, kg, PRN Chest Pain, Start date: 03/10/17 7:03:00 CDT, Duration: 3 doses or times, Stop date: Limited # of timesNotes: (Same as: Nitroquick, Nitrostat) "Do Not Crush" Sublingual tablet Inactive 03/10/2017 [facility] Morphine 2 mg, 1 mL, Route: IVP, Drug form: INJ, Q15Min, Dosing Weight 142.727, kg, PRN Chest Pain, Start date: 03/10/17 7:03:00 CDT, Duration: 2 doses or times, Stop date: Limited # of timesNotes: (Same as:M ORPhine Sulfate) Inactive 03/10/2017 [facility] Aspirin 81 MG Chewable Tablet 324 mg, Route: PO, Drug form: CHEWTAB, ONCE, Dosing Weight 139.091, kg, Priority: STAT, Start date: 03/10/17 3:43:00 CDT, Stop date: 03/10/17 3:43:00 CDT Inactive 03/10/2017 [facility] Alprazolam 0.5 MG Oral Tablet [Xanax] 0.5 mg, Route: PO, Drug form: TAB, ONCE, Dosing Weight 139.091, kg, Priority: STAT, Start date: 03/10/17 2:57:00 CDT, Stop date: 03/10/17 2:57:00 CDT Inactive 03/10/2017 [facility] Zofran 4 mg, Route: IVP, ONCE, Dosing Weight 139.091, kg, Start date: 03/09/17 21:39:00 CDT, Stop date: 03/09/17 21:39:00 CDT Inactive 03/10/2017 [facility] Saline Flush 0.9% 10 mL, Route: IVP, Drug Form: INJ, Dosing Weight 139.091, kg, PRN, PRN Line Flush, Start date: 03/09/17 17:45:00 CDT, Duration: 30 day, Stop date: 04/08/17 17:44:00 CDTNotes: (Same as: BD Posiflush) No Longer Active 03/09/2017 [facility] ibuprofen 800 mg oral tablet 800 mg=1 tab, PO, Q8H, PRN Pain, Take with food, X 10 day, # 30 tab, 0 Refill(s) Active 03/07/2017 [facility] ketOROLAC 15 mg/mL injectable solution 15 mg, Route: IVP, Drug form: INJ, ONCE, Dosing Weight 142.727, kg, Priority: STAT, Start date: 03/07/17 2:35:00 CDT, Stop date: 03/07/17 2:35:00 CDT Inactive 03/07/2017 [facility] Saline Flush 0.9% 10 mL, Route: IVP, Drug Form: INJ, Dosing Weight 135, kg, PRN, PRN Line Flush, Start date: 03/06/17 21:01:00 CDT, Duration: 30 day, Stop date: 04/05/17 21:00:00 CDTNotes: (Same as: BD Posiflush) No Longer Active 03/07/2017 [facility] Sodium Chloride 0.9% (Bolus) IV 1,000 mL, 2,000 ml/hr, Infuse Over: 30 minutes, Route: IV, 1,000, Drug form: INJ, ONCE, Priority: STAT, Dosing Weight 135 kg, Start date: 03/06/17 21:01:00 CDT, Duration: 1 doses or times, Stop date: 03/06/17 21:01:00 CDT No Longer Active 03/07/2017 [facility] Trazodone 50 mg, 1 tab, Route: PO, Drug form: TAB, Bedtime, Dosing Weight 142.727, kg, Start date: 03/05/17 21:00:00 CDT, Duration: 30 day, Stop date: 04/03/17 21:00:00 CDTNotes: (Same As: Desyrel) Inactive 03/06/2017 [facility] Protonix 40 mg, Route: IVP, Drug form: INJ, BID, Dosing Weight 142.727, kg, Start date: 03/05/17 17:00:00 CDT, Duration: 30 day, Stop date: 04/04/17 9:00:00 CDTNotes: For IV push reconstitute with 10 ml 0.9% sodium chloride and push over 2 minutes. (Same as: Protonix) Inactive 03/05/2017 [facility] pantoprazole 40 mg oral enteric coated tablet 40 mg=1 tab, PO, BID, # 60 tab, 0 Refill(s) Active 03/05/2017 [facility] sodium chloride 0.9% 1000 ml INJ 1,000 mL 1,000 mL, Rate: 25 ml/hr, Infuse over: 40 hr, Route: IV, Dosing Weight 142.727 kg, Total Volume: 1,000, Start date: 03/05/17 12:15:00 CDT, Duration: 30 day, Stop date: 04/04/17 12:14:00 CDT Inactive 03/05/2017 [facility] Tylenol 650 mg, 20.3 mL, Route: PO, Drug form: LIQ, Q6H, Dosing Weight 142.727, kg, PRN Pain 1-3/Temp > 100.4 F, Start date: 03/05/17 10:37:00 CDT, Duration: 30 day, Stop date: 04/04/17 10:36:00 CDT, fever, pain, headacheNotes: Max arpnbscaykyae=8396ey/day (4 gm/day). (Same as: Tylenol) Inactive 03/05/2017 [facility] Restoril 15 mg, 1 cap, Route: PO, Drug form: CAP, Bedtime, Dosing Weight 142.727, kg, PRN Sleep, Start date: 03/05/17 10:37:00 CDT, Duration: 30 day, Stop date: 04/04/17 10:36:00 CDTNotes: (Same As: Restoril) Inactive 03/05/2017 [facility] Clonidine Hydrochloride 0.1 MG Oral Tablet 0.1 mg, 1 tab, Route: PO, Drug form: TAB, Q6H, Dosing Weight 142.727, kg, PRN Elevated BP, Start date: 03/05/17 10:37:00 CDT, Duration: 30 day, Stop date: 04/04/17 10:36:00 CDT, SBP > 165Notes: (Same As: Catapres) Inactive 03/05/2017 [facility] Zofran 4 mg, 2 mL, Route: IVP, Drug form: INJ, Q4H, Dosing Weight 142.727, kg, PRN Nausea, Start date: 03/05/17 10:37:00 CDT, Duration: 30 day, Stop date: 04/04/17 10:36:00 CDTNotes: (Same as: Zofran) MEDICATION WASTE Product Size: 4 mg Product Wasted: ___ mg Inactive 03/05/2017 [facility] famotidine 20 mg, 1 tab, Route: PO, Drug form: TAB, Q12H, Start date: 03/05/17 9:00:00 CDT, Duration: 30 day, Stop date: 04/03/17 21:00:00 CDTNotes: (Same as: Pepcid) Inactive 03/05/2017 [facility] Ranitidine 150 MG Oral Tablet [Zantac] 150 mg, 1 tab, Route: PO, Drug form: TAB, BID, Dosing Weight 142.727, kg, Start date: 03/05/17 9:00:00 CDT, Duration: 30 day, Stop date: 04/03/17 17:00:00 CDT No Longer Active 03/05/2017 [facility] Furosemide 40 MG Oral Tablet [Lasix] 40 mg, 1 tab, Route: PO, Drug form: TAB, Daily, Dosing Weight 142.727, kg, Start date: 03/05/17 9:00:00 CDT, Duration: 30 day, Stop date: 04/03/17 9:00:00 CDTNotes: (Same as: Lasix) May cause GI upset. Give with food or milk. Inactive 03/05/2017 [facility] Protonix 40 mg, Route: IVP, Drug form: INJ, Daily, Dosing Weight 142.727, kg, Patient is NPO, Start date: 03/05/17 9:00:00 CDT, Duration: 30 day, Stop date: 04/03/17 9:00:00 CDTNotes: For IV push reconstitute with 10 ml 0.9% sodium chloride and push over 2 minutes. (Same as: Protonix) Inactive 03/05/2017 [facility] Breo Ellipta 1 puff, Route: INHALATION, Drug Form: PWDR, Dosing Weight 142.727, kg, Daily, Start date: 03/05/17 9:00:00 CDT, Duration: 30 day, Stop date: 04/03/17 9:00:00 CDT Inactive 03/05/2017 [facility] Nurse pls bring pt's own med: Breo Ellipta to pharmacy Nurse pls bring pt's own med: Breo Ellipta to pharmacy, reminder, Drug form: MISC, Route: MISC, QSHIFT, 03/05/17 8:00:00 CDT, Duration: 30 day, Stop date: 04/04/17 0:00:00 CDT Inactive 03/05/2017 [facility] Sucralfate 1 gm, 1 tab, Route: PO, Drug form: TAB, BID- Before Meals, Dosing Weight 142.727, kg, Start date: 03/05/17 7:30:00 CDT, Duration: 30 day, Stop date: 04/03/17 16:30:00 CDTNotes: May interfere w/enteral feeds - Take 1 hr before or 2 hr after antacids, dairy pdt, meals & minerals - On empty stomach. For patients unable to swallow tablet, dissolve in 10mL - 30mL of water or juice and stir before giving. (Same As: Carafate) Inactive 03/05/2017 [facility] Ketorolac 30 mg, 1 mL, Route: IVP, Drug form: INJ, Q6H, Dosing Weight 142.727, kg, PRN Pain Score 4-6, Start date: 03/05/17 0:28:00 CDT, Duration: 4 day, Stop date: 03/09/17 0:27:00 CDTNotes: (Same as:Toradol) IV bolus must be given >15 seconds. Give IM administration slowly and deeply into the muscle. Not for use > 4 days MEDICATION WASTE Product Size: 30 mg Product Wasted: ___ mg Inactive 03/05/2017 [facility] Sodium Chloride 0.154 MEQ/ML Nasal [place] [Simply Saline] 1 spray, Route: NASAL, Q30Min, Drug form: SOLN, PRN Nasal dryness, Start date: 03/04/17 23:50:00 CDT, Duration: 30 day, Stop date: 04/03/17 23:49:00 CDTNotes: (Same as: [place], Deep Sea Nasal [place]). No Longer Active 03/05/2017 [facility] GI cocktail 30 ml, Route: PO, Drug Form: SUSP, Dosing Weight 142.727, kg, ONCE, Routine, Start date: 03/04/17 23:47:00 CDT, Stop date: 03/04/17 23:47:00 CDTNotes: G.I. Cocktail=antacid with simethicone 22.5 mL - lidocaine viscous 7.5 mL No Longer Active 03/05/2017 [facility] sodium chloride 0.9% 1000 ml INJ 1,000 mL 1,000 mL, Rate: 125 ml/hr, Infuse over: 8 hr, Route: IV, Dosing Weight 142.727 kg, Total Volume: 1,000, Start date: 03/04/17 23:47:00 CDT, Duration: 30 day, Stop date: 04/03/17 23:46:00 CDT No Longer Active 03/05/2017 [facility] Saline Flush 0.9% 10 ml, Route: IVP, Drug Form: INJ, Dosing Weight 142.727, kg, PRN, PRN Line Flush, Start date: 03/04/17 23:47:00 CDT, Duration: 30 day, Stop date: 04/03/17 23:46:00 CDTNotes: (Same as: BD Posiflush) No Longer Active 03/05/2017 [facility] Ondansetron 4 mg, 2 mL, Route: IVP, Drug form: INJ, Q6H, Dosing Weight 142.727, kg, PRN Nausea & Vomiting, Start date: 03/04/17 23:47:00 CDT, Duration: 30 day, Stop date: 04/03/17 23:46:00 CDTNotes: (Same as: Zofran) MEDICATION WASTE Product Size: 4 mg Product Wasted: ___ mg No Longer Active 03/05/2017 [facility] Morphine 2 mg, 1 mL, Route: IVP, Drug form: SOLN, Q4H, Dosing Weight 142.727, kg, PRN Pain Score 7-10, Start date: 03/04/17 23:47:00 CDT, Duration: 30 day, Stop date: 04/03/17 23:46:00 CDT No Longer Active 03/05/2017 [facility] Ondansetron 4 mg, 2 mL, Route: IVP, Drug form: INJ, ONCE, Dosing Weight 148.636, kg, Priority: STAT, Start date: 03/04/17 17:32:00 CDT, Stop date: 03/04/17 17:32:00 CDTNotes: (Same as: Zofran) MEDICATION WASTE Product Size: 4 mg Product Wasted: ___ mg Inactive 03/04/2017 [facility] Famotidine 20 mg, 2 mL, Route: IVP, Drug form: INJ, ONCE, Dosing Weight 148.636, kg, Priority: STAT, Start date: 03/04/17 17:32:00 CDT, Stop date: 03/04/17 17:32:00 CDTNotes: (Same as: Pepcid) Can be dilute in 5-10cc NS IVP: Slow IV push over at least 2 minutes. Inactive 03/04/2017 [facility] Saline Flush 0.9% 10 mL, Route: IVP, Drug Form: INJ, Dosing Weight 148.636, kg, PRN, PRN Line Flush, Start date: 03/04/17 17:32:00 CDT, Duration: 30 day, Stop date: 04/03/17 17:31:00 CDTNotes: (Same as: BD Posiflush) No Longer Active 03/04/2017 [facility] Sodium Chloride 0.9% (Bolus) IV 1,000 mL, 2,000 ml/hr, Infuse Over: 30 minutes, Route: IV, 1,000, Drug form: INJ, ONCE, Priority: STAT, Dosing Weight 148.636 kg, Start date: 03/04/17 17:32:00 CDT, Duration: 1 doses or times, Stop date: 03/04/17 17:32:00 CDT Inactive 03/04/2017 [facility] Docusate 100 mg, 1 cap, Route: PO, Drug form: CAP, BID, Dosing Weight 148.636, kg, Start date: 02/21/17 17:00:00 CDT, Duration: 30 day, Stop date: 03/23/17 9:00:00 CDTNotes: (Same as: Colace) (Do Not Crush) Inactive 02/21/2017 [facility] Enoxaparin 40 mg, 0.4 mL, Route: SUB-Q, Drug form: INJ, [id number], Dosing Weight 148.636, kg, Consider for obese patients, Start date: 02/21/17 12:00:00 CDT, Duration: 30 day, Stop date: 03/23/17 0:00:00 CDTNotes: (Same as: Lovenox) Inactive 02/21/2017 [facility] Acetaminophen 650 mg, 20.3 mL, Route: PO, Drug form: LIQ, Q4H, Dosing Weight 148.636, kg, PRN Pain 1-3/Temp > 100.4 F, Start date: 02/21/17 11:38:00 CDT, Duration: 30 day, Stop date: 03/23/17 11:37:00 CDTNotes: Max pefjxyxqocqou=0433wb/day (4 gm/day). (Same as: Tylenol) Inactive 02/21/2017 [facility] Morphine 2 mg, 1 mL, Route: IVP, Drug form: SOLN, Q4H, Dosing Weight 148.636, kg, PRN Pain Score 7-10, Start date: 02/21/17 11:38:00 CDT, Duration: 30 day, Stop date: 03/23/17 11:37:00 CDT Inactive 02/21/2017 [facility] Ondansetron 4 mg, 2 mL, Route: IVP, Drug form: INJ, Q6H, Dosing Weight 148.636, kg, PRN Nausea & Vomiting, Start date: 02/21/17 11:38:00 CDT, Duration: 30 day, Stop date: 03/23/17 11:37:00 CDTNotes: (Same as: Pillo) MEDICATION WASTE Product Size: 4 mg Product Wasted: ___ mg Inactive 02/21/2017 [facility] Ondansetron 4 mg, Route: IVP, Drug form: INJ, ONCE, Dosing Weight 148.636, kg, Priority: STAT, Start date: 02/21/17 6:15:00 CDT, Stop date: 02/21/17 6:15:00 CDT Inactive 02/21/2017 [facility] Acetaminophen 650 mg, Route: PO, Drug form: TAB, ONCE, Dosing Weight 148.636, kg, Priority: STAT, Start date: 02/21/17 5:53:00 CDT, Stop date: 02/21/17 5:53:00 CDT Inactive 02/21/2017 [facility] Ativan 0.5 mg, Route: IVP, Drug form: INJ, ONCE, Dosing Weight 148.636, kg, Priority: STAT, Start date: 02/21/17 3:18:00 CDT, Stop date: 02/21/17 3:18:00 CDT Inactive 02/21/2017 [facility] Diazepam 10 Mg Tablet TAKE ONE TABLET BY MOUTH EVERY 12 HOURS NEEDED FOR ANXIETY. No Longer Active 02/16/2017 [facility] Carisoprodol 350 Mg Tablet Take 1 tablet by mouth 3 times daily as needed for Other (prn back spasm). Oral No Longer Active 02/16/2017 [facility] Hydrocodone 10 Mg-Acetaminophen 325 Mg Tablet Kimberly 10 Mg-325 Mg Tablet Take 1 tablet by mouth every 6 hours as needed for Pain. Oral No Longer Active 02/16/2017 [facility] Ergocalciferol (Vitamin D2) 50,000 Unit Capsule Vitamin D2 50,000 Unit Capsule Take 1 capsule by mouth weekly. Oral Active 02/16/2017 [facility] Amlodipine 5 Mg Tablet Norvasc 5 Mg Tablet Take 1 tablet by mouth daily. Oral Active 02/16/2017 [facility] ergocalciferol (VITAMIN D2) 50,000 unit capsule Take 1 capsule by mouth weekly. Oral No Longer Active 02/16/2017 [facility] amLODIPine (NORVASC) 5 mg tablet Take 1 tablet by mouth daily. Oral Active 02/16/2017 [facility] pantoprazole 40 mg, 1 tab, Route: PO, Drug form: ECTAB, BID, Dosing Weight 149.091, kg, Start date: 02/10/17 9:00:00 CDT, Duration: 30 day, Stop date: 03/11/17 17:00:00 CDTNotes: Tablet should not be chewed or cr ushed. (Same as: Protonix) No Longer Active 02/10/2017 [facility] Furosemide 40 MG Oral Tablet [Lasix] 40 mg, 1 tab, Route: PO, Drug form: TAB, Daily, Dosing Weight 149.091, kg, Start date: 02/09/17 9:00:00 CDT, Duration: 30 day, Stop date: 03/10/17 9:00:00 CDTNotes: (Same as: Lasix) May cause GI upset. Give with food or milk. No Longer Active 02/09/2017 [facility] pantoprazole 40 mg, Route: PO, Drug form: ECTAB, Before Breakfast, Dosing Weight 149.091, kg, Start date: 02/09/17 7:30:00 CDT, Duration: 30 day, Stop date: 03/10/17 7:30:00 CDT No Longer Active 02/09/2017 [facility] trolamine salicylate topical 10% cream 1 appl, Route: TOP, TID, Drug form: CRM, Start date: 02/08/17 17:00:00 CDT, Duration: 30 day, Stop date: 03/10/17 13:00:00 CDTNotes: Non-Formulary Drug. (Same As: Aspercreme, Myoflex, Mobisyl) No Longer Active 02/08/2017 [facility] Biofreeze 1 appl, Route: TOP, TID, Start date: 02/08/17 17:00:00 CDT, Duration: 30 day, Stop date: 03/10/17 13:00:00 CDT Inactive 02/08/2017 [facility] Pneumovax 23 0.5 mL, Route: IM, Drug Form: INJ, Daily, Start date: 02/08/17 10:00:00 CDT, Duration: 1 doses or times, Stop date: 02/08/17 10:00:00 CDTNotes: (Same as: Pneumovax 23) Refrigerate No Longer Active 02/08/2017 [facility] pneumococcal capsular polysaccharide type 1 vaccine / pneumococcal capsular polysaccharide type 10A vaccine / pneumococcal capsular polysaccharide type 11A vaccine / pneumococcal capsular polysaccharide type 12F vaccine / pneumococcal capsular polysacchar 0.5 mL, Route: IM, Drug Form: INJ, Daily, Start date: 02/08/17 9:00:00 CDT, Duration: 1 doses or times, Stop date: 02/08/17 9:00:00 CDTNotes: (Same as: Pneumovax 23) Refrigerate Inactive 02/08/2017 [facility] Prednisone 40 mg, 2 tab, Route: PO, Drug form: TAB, Daily, Dosing Weight 149.545, kg, Start date: 02/08/17 9:00:00 CDT, Duration: 30 day, Stop date: 03/09/17 9:00:00 CDTNotes: Take with food. No Longer Active 02/08/2017 [facility] Protonix 40 mg, Route: IV, Drug form: INJ, BID, Dosing Weight 149.091, kg, Start date: 02/08/17 9:00:00 CDT, Duration: 30 day, Stop date: 03/09/17 17:00:00 CDTNotes: For IV push reconstitute with 10 ml 0.9% sodi um chloride and push over 2 minutes. (Same as: Protonix) No Longer Active 02/08/2017 [facility] Maalox Advanced Regular Strength SUSP 30 mL, Route: PO, Drug Form: SUSP, Dosing Weight 149.091, kg, QID, PRN Indigestion, Start date: 02/07/17 21:29:00 CDT, Duration: 30 day, Stop date: 03/09/17 21:28:00 CDTNotes: (aluminum hydroxide-magnesium hyd-simethicone [phone]/5ml 30 ml ud YUNIOR) No Longer Active 02/08/2017 [facility] Ketorolac 15 mg, 1 mL, Route: IV, Drug form: INJ, Q6H, Dosing Weight 149.091, kg, PRN Pain Score 6-10, Start date: 02/07/17 21:28:00 CDT, Duration: 4 day, Stop date: 02/11/17 21:27:00 CDTNotes: (Same as:Toradol) IV bolus must be given >15 seconds. Give IM administration slowly and deeply into the muscle. Not for use > 4 days. No Longer Active 02/08/2017 [facility] Ativan 0.5 mg, 1 tab, Route: PO, Drug form: TAB, Q8H, Dosing Weight 149.091, kg, PRN as needed for anxiety, Start date: 02/07/17 21:27:00 CDT, Duration: 30 day, Stop date: 03/09/17 21:26:00 CDTNotes: (Same as: Ativan) No Longer Active 02/08/2017 [facility] GI cocktail 30 ml, Route: PO, Drug Form: SUSP, Dosing Weight 149.091, kg, ONCE, Routine, Start date: 02/07/17 21:24:00 CDT, Stop date: 02/07/17 21:24:00 CDTNotes: G.I. Cocktail=antacid with simethicone 22.5 mL - lidocaine viscous 7.5 mL Inactive 02/08/2017 [facility] Lovenox 40 mg, 0.4 mL, Route: SUB-Q, Drug form: INJ, [id number], Dosing Weight 149.545, kg, Start date: 02/07/17 20:00:00 CDT, Duration: 30 day, Stop date: 03/08/17 20:00:00 CDTNotes: (Same as: Lovenox) No Longer Active 02/08/2017 [facility] Saline Flush 0.9% 10 ml, Route: IVP, Drug Form: INJ, Dosing Weight 149.545, kg, PRN, PRN Line Flush, Start date: 02/07/17 19:42:00 CDT, Duration: 30 day, Stop date: 03/09/17 19:41:00 CDTNotes: (Same as: BD Posiflush) No Longer Active 02/08/2017 [facility] sodium chloride 0.9% 1000 ml INJ 1,000 mL 1,000 mL, Rate: 100 ml/hr, Infuse over: 10 hr, Route: IV, Dosing Weight 149.545 kg, Total Volume: 1,000, Start date: 02/07/17 19:42:00 CDT, Duration: 30 day, Stop date: 03/09/17 19:41:00 CDT No Longer Active 02/08/2017 [facility] Acetaminophen 325 MG / Hydrocodone Bitartrate 5 MG Oral Tablet 1 tab, Route: PO, Drug Form: TAB, Dosing Weight 149.545, kg, Q4H, PRN Pain Score 4-6, Start date: 02/07/17 19:42:00 CDT, Duration: 30 day, Stop date: 03/09/17 19:41:00 CDTNotes: (Same as: Kimberly 325/5) Do not exceed 4gm/day of acetaminophen. No Longer Active 02/08/2017 [facility] Morphine 4 mg, 1 mL, Route: IVP, Drug form: SOLN, Q4H, Dosing Weight 149.545, kg, PRN Pain Score 7-10, Start date: 02/07/17 19:42:00 CDT, Duration: 30 day, Stop date: 03/09/17 19:41:00 CDTNotes: (Same as:MORPhine Sulfate) No Longer Active 02/08/2017 [facility] Ondansetron 4 mg, 2 mL, Route: IVP, Drug form: INJ, Q6H, Dosing Weight 149.545, kg, PRN Nausea & Vomiting, Start date: 02/07/17 19:42:00 CDT, Duration: 30 day, Stop date: 03/09/17 19:41:00 CDTNotes: (Same as: Zofran) MEDICATION WASTE Product Size: 4 mg Product Wasted: ___ mg No Longer Active 02/08/2017 [facility] Zofran 4 mg, 2 mL, Route: IVP, Drug form: INJ, ONCE, Dosing Weight 149.545, kg, Priority: STAT, Start date: 02/07/17 14:39:00 CDT, Stop date: 02/07/17 14:39:00 CDTNotes: (Same as: Zofran) MEDICATION WASTE Product Size: 4 mg Product Wasted: ___ mg Inactive 02/07/2017 [facility] Saline Flush 0.9% 10 mL, Route: IVP, Drug Form: INJ, Dosing Weight 149.545, kg, PRN, PRN Line Flush, Start date: 02/07/17 12:53:00 CDT, Duration: 30 day, Stop date: 03/09/17 12:52:00 CDTNotes: (Same as: BD Posiflush) Inactive 02/07/2017 [facility] Prednisone 60 mg, Route: PO, Drug form: TAB, ONCE, Dosing Weight 149.545, kg, Priority: STAT, Start date: 02/07/17 12:53:00 CDT, Stop date: 02/07/17 12:53:00 CDT Inactive 02/07/2017 [facility] Albuterol 0.833 MG/ML / Ipratropium [place] 0.167 MG/ML Inhalant Solution 3 mL, Route: NEB, Drug Form: SOLN, Dosing Weight 149.545, kg, ONCE, STAT, Start date: 02/07/17 12:53:00 CDT, Stop date: 02/07/17 12:53:00 CDT Inactive 02/07/2017 [facility] Breo Ellipta 100 mcg/25 mcg Breo Ellipta 100 mcg/25 mcg, 1 inhalation, Drug form: MISC, Route: INHALATION, Daily, 02/03/17 12:00:00 CDT, Duration: 30 day, Stop date: 03/05/17 9:00:00 CDT Inactive 02/03/2017 [facility] Docusate 100 mg, 1 cap, Route: PO, Drug form: CAP, BID, Dosing Weight 150, kg, Start date: 02/03/17 9:00:00 CDT, Duration: 30 day, Stop date: 03/04/17 17:00:00 CDTNotes: (Same as: Colace) (Do Not Crush) Inactive 02/03/2017 [facility] Furosemide 40 MG Oral Tablet [Lasix] 40 mg, 1 tab, Route: PO, Drug form: TAB, Daily, Dosing Weight 150, kg, Start date: 02/03/17 9:00:00 CDT, Duration: 30 day, Stop date: 03/04/17 9:00:00 CDTNotes: (Same as: Lasix) May cause GI upset. Give with food or milk. Inactive 02/03/2017 [facility] *RN please bring home med BREO ELLIPTA to Pharmacy for label *RN please bring home med BREO ELLIPTA to Pharmacy for label, 1, Drug form: MISC, Route: MISC, TID, 02/03/17 9:00:00 CDT, Duration: 30 day, Stop date: 03/04/17 20:00:00 CDT Inactive 02/03/2017 [facility] Breo Ellipta 1 puff, Route: INHALATION, Drug Form: PWDR, Dosing Weight 150, kg, Daily, Start date: 02/03/17 9:00:00 CDT, Duration: 30 day, Stop date: 03/04/17 9:00:00 CDT Inactive 02/03/2017 [facility] Ranitidine 150 MG Oral Tablet [Zantac] 150 mg, 1 tab, Route: PO, Drug form: TAB, BID, Dosing Weight 150, kg, Start date: 02/03/17 9:00:00 CDT, Duration: 30 day, Stop date: 03/04/17 17:00:00 CDT No Longer Active 02/03/2017 [facility] Neurontin 100 mg, 1 cap, Route: PO, Drug form: CAP, Daily, Dosing Weight 150, kg, Priority: NOW, Start date: 02/03/17 8:36:00 CDT, Duration: 30 day, Stop date: 03/04/17 9:00:00 CDTNotes: (Same as: Neurontin) Inactive 02/03/2017 [facility] sucralfate 1 g oral tablet 1 gm=1 tab, PO, BID-Before Meals, # 60 tab, 0 Refill(s), [id number] Active 02/03/2017 [facility] pantoprazole 40 mg oral enteric coated tablet 40 mg=1 tab, PO, Before Breakfast, # 60 tab, 0 Refill(s), Pharmacy: [facility] [id number] Active 02/03/2017 [facility] Carafate 1 gm, 1 tab, Route: PO, Drug form: TAB, BID-Before Meals, Dosing Weight 150, kg, Priority: NOW, Start date: 02/03/17 8:32:00 CDT, Duration: 30 day, Stop date: 03/05/17 7:30:00 CDT Inactive 02/03/2017 [facility] Protonix 40 mg, 1 tab, Route: PO, Drug form: ECTAB, Before Breakfast, Dosing Weight 150, kg, Priority: NOW, Start date: 02/03/17 8:32:00 CDT, Duration: 30 day, Stop date: 03/05/17 7:30:00 CDT Inactive 02/03/2017 [facility] Breo Ellipta 1 puff, Route: INHALATION, Drug Form: PWDR, Dosing Weight 150, kg, RDaily, NOW, Start date: 02/03/17 8:31:00 CDT, Duration: 30 day, Stop date: 03/05/17 8:00:00 CDT Inactive 02/03/2017 [facility] Albuterol 0.833 MG/ML / Ipratropium [place] 0.167 MG/ML Inhalant Solution [DuoNeb] 3 mL, Route: NEB, Drug Form: SOLN, Dosing Weight 150, kg, RQID, NOW, Start date: 02/03/17 8:31:00 CDT, Duration: 30 day, Stop date: 03/05/17 7:00:00 CDTNotes: (Same as: Duoneb) Inactive 02/03/2017 [facility] famotidine 20 mg, 1 tab, Route: PO, Drug form: TAB, BID- Before Meals, Start date: 02/03/17 7:30:00 CDT, Duration: 30 day, Stop date: 03/04/17 16:30:00 CDTNotes: (Same as: Pepcid) Inactive 02/03/2017 [facility] Sodium Chloride 0.154 MEQ/ML Nasal [place] [Simply Saline] 1 spray, Route: NASAL, Q30Min, Drug form: SOLN, PRN Nasal dryness, Start date: 02/02/17 22:51:00 CDT, Duration: 30 day, Stop date: 03/04/17 22:50:00 CDTNotes: (Same as: [place], Deep Sea Nasal [place]). No Longer Active 02/03/2017 [facility] Al hydroxide/Mg hydroxide/simethicone 200 mg-200 mg-20 mg/5 mL oral suspension 30 mL, Route: PO, Drug Form: SUSP, Dosing Weight 150, kg, Q4H, PRN Indigestion, Start date: 02/02/17 22:44:00 CDT, Duration: 30 day, Stop date: 03/04/17 22:43:00 CDTNotes: (aluminum hydroxide-magnesium hyd-simethicone [phone]/5ml 30 ml ud YUNIOR) No Longer Active 02/03/2017 [facility] Lorazepam 0.5 mg, 1 tab, Route: PO, Drug form: TAB, Q8H, Dosing Weight 150, kg, PRN Anxiety, Start date: 02/02/17 22:44:00 CDT, Duration: 30 day, Stop date: 03/04/17 22:43:00 CDTNotes: (Same as: Ativan) No Longer Active 02/03/2017 [facility] Methocarbamol 1,000 mg, 2 tab, Route: PO, Drug form: TAB, Q8H, Dosing Weight 150, kg, PRN Muscle Spasms, Start date: 02/02/17 22:44:00 CDT, Duration: 30 day, Stop date: 03/04/17 22:43:00 CDTNotes: (Same as:Robaxin) No Longer Active 02/03/2017 [facility] Ondansetron 4 mg, 2 mL, Route: IVP, Drug form: INJ, Q6H, Dosing Weight 150, kg, PRN Nausea & Vomiting, Start date: 02/02/17 22:44:00 CDT, Duration: 30 day, Stop date: 03/04/17 22:43:00 CDTNotes: (Same as: Zofran) MEDICATION WASTE Product Size: 4 mg Product Wasted: ___ mg No Longer Active 02/03/2017 [facility] Acetaminophen 325 MG / Hydrocodone Bitartrate 5 MG Oral Tablet 2 tab, Route: PO, Drug Form: TAB, Dosing Weight 150, kg, Q4H, PRN Pain Score 7-10, Start date: 02/02/17 22:44:00 CDT, Duration: 30 day, Stop date: 03/04/17 22:43:00 CDTNotes: (Same as: Kimberly 325/5) Do not exceed 4gm/day of acetaminophen. No Longer Active 02/03/2017 [facility] Ranitidine 150 MG Oral Tablet [Zantac] 150 mg, Route: PO, BID, Dosing Weight 150, kg, Start date: 02/02/17 21:26:00 CDT, Duration: 30 day, Stop date: 03/04/17 17:00:00 CDT Inactive 02/03/2017 [facility] GI cocktail 30 ml, Route: PO, Drug Form: SUSP, Dosing Weight 150, kg, ONCE, Routine, Start date: 02/02/17 21:26:00 CDT, Stop date: 02/02/17 21:26:00 CDTNotes: G.I. Cocktail=antacid with simethicone 22.5 mL - lidocaine viscous 7.5 mL Inactive 02/03/2017 [facility] Ranitidine 150 MG Oral Tablet [Zantac] 150 mg=1 tab, PO, BID, # 60 tab, 0 Refill(s) Active 02/03/2017 [facility] Furosemide 40 MG Oral Tablet [Lasix] 40 mg=1 tab, PO, Daily, # 30 tab, 0 Refill(s) Active 02/03/2017 [facility] Acetaminophen 325 MG / Hydrocodone Bitartrate 10 MG Oral Tablet [Kimberly 10/325] 1 tab, PO, Q6H, 0 Refill(s) Active 02/03/2017 [facility] Breo Ellipta 100 mcg-25 mcg inhalation powder 1 puff, INHALATION, Daily, 0 Refill(s) Active 02/03/2017 [facility] Ativan 1 mg, 0.5 mL, Route: IVP, Drug form: INJ, ONCE, Dosing Weight 150, kg, PRN Anxiety, Start date: 02/02/17 19:54:00 CDTNotes: (Same as: Ativan) No Longer Active 02/03/2017 [facility] Omeprazole 40 MG Enteric Coated Capsule [Prilosec] 40 mg=1 cap, PO, Daily, # 30 cap, 1 Refill(s), Pharmacy: [facility] [id number] Inactive 02/03/2017 [facility] tramadol hydrochloride 50 MG Oral Tablet 50 mg=1 tab, PO, BID, X 15 day, # 30 tab, 0 Refill(s) Inactive 02/03/2017 [facility] Metoclopramide 5 MG Oral Tablet [Reglan] 5 mg=1 tab, PO, QID, X 7 day, # 28 tab, 0 Refill(s), Pharmacy: [facility] [id number] Inactive 02/03/2017 [facility] Ondansetron 4 MG Oral Tablet [Zofran] 4 mg=1 tab, PO, BID, # 10 tab, 0 Refill(s), Pharmacy: [facility] [id number] Inactive 02/03/2017 [facility] Saline Flush 0.9% 10 mL, Route: IVP, Drug Form: INJ, Dosing Weight 152.273, kg, PRN, PRN Line Flush, Start date: 02/02/17 14:33:00 CDT, Duration: 30 day, Stop date: 03/04/17 14:32:00 CDTNotes: (Same as: BD Posiflush) No Longer Active 02/02/2017 [facility] Ibuprofen 800 Mg Tablet Take 1 tablet by mouth every 8 hours as needed for Pain. Oral Active 01/23/2017 [facility] Tramadol 50 Mg Tablet TAKE ONE TABLET BY MOUTH EVERY 6 HOURS NEEDED FOR PAIN. No Longer Active 01/23/2017 [facility] Omeprazole 40 Mg Capsule,Delayed Release Take 1 capsule by mouth daily. Oral No Longer Active 01/23/2017 [facility] Zolpidem 10 Mg Tablet Take 1 tablet by mouth nightly at bedtime as needed for Insomnia. Oral Active 01/23/2017 [facility] Ketoconazole 2 % Topical Cream Apply to affected area daily. Topical Active 01/23/2017 [facility] ibuprofen (MOTRIN) 800 mg tablet Take 1 tablet by mouth every 8 hours as needed for Pain. Oral Active 01/23/2017 [facility] traMADol (ULTRAM) 50 mg tablet TAKE ONE TABLET BY MOUTH EVERY 6 HOURS NEEDED FOR PAIN. No Longer Active 01/23/2017 [facility] Omeprazole 40 mg capsule Take 1 capsule by mouth daily. Oral No Longer Active 01/23/2017 [facility] zolpidem (AMBIEN) 10 mg Tab Take 1 tablet by mouth nightly at bedtime as needed for Insomnia. Oral Active 01/23/2017 [facility] ketoconazole (NIZORAL) 2 % topical cream Apply to affected area daily. Topical Active 01/23/2017 [facility] amoxicillin (AMOXIL) 500 mg capsule Take 1 capsule by mouth 3 times daily for 10 days. Oral No Longer Active 01/23/2017 [facility] Sodium Chloride 0.154 MEQ/ML Nasal [place] [Simply Saline] 1 spray, NASAL, Q30Min, PRN Nasal dryness, # 45 ml, 0 Refill(s) Active 01/14/2017 [facility] tramadol hydrochloride 50 MG Oral Tablet [Ultram] 50 mg=1 tab, PO, Q4H, PRN pain, X 3 day, # 20 tab, 0 Refill(s) Active 01/13/2017 [facility] Acetaminophen 325 MG / Hydrocodone Bitartrate 10 MG Oral Tablet [Kimberly 10/325] 1 tab, Route: PO, Drug Form: TAB, Dosing Weight 152.273, kg, ONCE, Start date: 01/12/17 14:58:00 CDT, Stop date: 01/12/17 14:58:00 CDTNotes: Do not exceed 4gm/day of acetaminophen. (Same as: Kimberly 325/10) Inactive 01/12/2017 [facility] Fluconazole 200 Mg Tablet Diflucan 200 Mg Tablet Take 1 tablet by mouth daily. Oral Active 12/19/2016 [facility] Hydrocortisone Acetate 25 Mg Rectal Suppository Anusol-Hc 25 Mg Rectal Suppository Insert 1 Suppository rectally 2 times daily. Rectal Active 12/19/2016 [facility] Nystatin 100,000 Unit/Gram Topical Powder Nystop 100,000 Unit/Gram Topical Powder Apply to affected area 4 times daily. Topical Active 12/19/2016 [facility] hydrocortisone-pramoxine (EPIFOAM) 1-1 % topical foam Apply 1 Applicator to affected area 4 times daily. Topical Active 12/19/2016 [facility] fluconazole (DIFLUCAN) 200 mg tablet Take 1 tablet by mouth daily. Oral Active 12/19/2016 [facility] hydrocortisone (ANUSOL-HC) 25 mg rectal suppository Insert 1 Suppository rectally 2 times daily. Rectal Active 12/19/2016 [facility] nystatin (NYSTOP) 100,000 unit/gram topical powder Apply to affected area 4 times daily. Topical Active 12/19/2016 [facility] hydrocortisone-pramoxine (EPIFOAM) 1-1 % topical foam Apply 1 Applicator to affected area 4 times daily. Topical Active 12/19/2016 [facility] Nystatin 100,000 Unit/Gram Topical Cream Apply to affected area 2 times daily. Topical No Longer Active 11/18/2016 [facility] Benzonatate 100 Mg Capsule Tessalon Perles 100 Mg Capsule Take 2 capsules by mouth 3 times daily as needed for Cough. Oral No Longer Active 11/18/2016 [facility] nystatin (MYCOSTATIN) topical cream Apply to affected area 2 times daily. Topical No Longer Active 11/18/2016 [facility] benzonatate (TESSALON PERLES) 100 mg capsule Take 2 capsules by mouth 3 times daily as needed for Cough. Oral No Longer Active 11/18/2016 [facility] Protonix 40 mg, 1 tab, Route: PO, Drug form: ECTAB, Before Dinner, Dosing Weight 150, kg, Start date: 11/16/16 16:30:00 CDT, Duration: 30 day, Stop date: 12/15/16 16:30:00 CDTNotes: Tablet should not be chewed or crushed. (Same as: Protonix) Inactive 11/16/2016 [facility] Acetaminophen 300 MG / Codeine Phosphate 30 MG Oral Tablet [Tylenol with Codeine #3] 1 tab, PO, Q6H, PRN Pain, X 3 day, # 12 tab, 0 Refill(s) Active 11/16/2016 [facility] Medrol 4 mg, 1 tab, Route: PO, Drug form: TAB, ONCE, Dosing Weight 150, kg, Start date: 11/16/16 11:36:00 CDT, Stop date: 11/16/16 11:36:00 CDTNotes: (Same as :Medrol) Take with food Inactive 11/16/2016 [facility] Motrin 800 mg, 1 tab, Route: PO, Drug form: TAB, TID, Dosing Weight 150, kg, PRN Pain Score 4-6, Start date: 11/16/16 11:36:00 CDT, Duration: 30 day, Stop date: 12/16/16 11:35:00 CDTNotes: (Same as: Motrin) "Do Not Crush" Take with food. Inactive 11/16/2016 [facility] Acetaminophen 650 mg, 2 tab, Route: PO, Drug form: TAB, Q4H, Dosing Weight 150, kg, PRN Pain 1-3/Temp > 100.4 F, Start date: 11/15/16 13:01:00 CDT, Duration: 30 day, Stop date: 12/15/16 13:00:00 CDTNotes: Do not e xceed 4 gm/day. (Same as: Tylenol) No Longer Active 11/15/2016 [facility] Acetaminophen 325 MG / Hydrocodone Bitartrate 5 MG Oral Tablet 1 tab, Route: PO, Drug Form: TAB, Dosing Weight 150, kg, Q4H, PRN Pain Score 4-6, Start date: 11/15/16 13:01:00 CDT, Duration: 30 day, Stop date: 12/15/16 13:00:00 CDTNotes: (Same as: Kimberly 325/5) Do not exceed 4gm/day of acetaminophen. No Longer Active 11/15/2016 [facility] Acetaminophen 325 MG / Hydrocodone Bitartrate 7.5 MG Oral Tablet [Kimberly 7.5/325] 1 tab, Route: PO, Drug Form: TAB, Dosing Weight 150, kg, ONCE, STAT, Start date: 11/15/16 10:19:00 CDT, Stop date: 11/15/16 10:19:00 CDT Inactive 11/15/2016 [facility] Saline Flush 0.9% 10 mL, Route: IVP, Drug Form: INJ, Dosing Weight 150, kg, PRN, PRN Line Flush, Start date: 11/15/16 5:55:00 CDT, Duration: 30 day, Stop date: 12/15/16 5:54:00 CDTNotes: (Same as: BD Posiflush) No Longer Active 11/15/2016 [facility] Cyclobenzaprine hydrochloride 5 MG Oral Tablet [Flexeril] 5 mg=1 tab, PO, TID, X 7 day, # 21 tab, 0 Refill(s) Active 08/20/2016 [facility] Dilaudid 0.5 mg, 0.5 mL, Route: IVP, Drug form: INJ, ONCE, Dosing Weight 145.455, kg, Priority: STAT, Start date: 08/20/16 15:19:00 CARDIOLOGY RN, Stop date: 08/20/16 15:19:00 CARDIOLOGY RN Inactive 08/20/2016 [facility] Ketorolac 15 mg, 0.5 mL, Route: IV, Drug form: INJ, ONCE, Dosing Weight 145.455, kg, Priority: STAT, Start date: 08/20/16 15:18:00 CARDIOLOGY RN, Stop date: 08/20/16 15:18:00 CSTNotes: (Same as:Toradol) IV bolus must be given >15 seconds. Give IM administration slowly and deeply into the muscle. Not for use > 4 days MEDICATION WASTE Product Size: 30 mg Product Wasted: ___ mg Inactive 08/20/2016 [facility] Valium 5 mg, Route: PO, ONCE, Dosing Weight 145.455, kg, Priority: STAT, Start date: 08/20/16 14:26:00 CARDIOLOGY RN, Stop date: 08/20/16 14:26:00 CARDIOLOGY RN Inactive 08/20/2016 [facility] Dilaudid 0.5 mg, Route: IV, ONCE, Dosing Weight 145.455, kg, Priority: STAT, Start date: 08/20/16 14:26:00 CARDIOLOGY RN, Stop date: 08/20/16 14:26:00 CARDIOLOGY RN Inactive 08/20/2016 [facility] Saline Flush 0.9% 10 mL, Route: IVP, Drug Form: INJ, Dosing Weight 145.455, kg, PRN, PRN Line Flush, Start date: 08/20/16 12:51:00 CARDIOLOGY RN, Duration: 30 day, Stop date: 09/19/16 13:50:00 CDTNotes: (Same as: BD Posiflush) Inactive 08/20/2016 [facility] pantoprazole 40 MG Enteric Coated Tablet [Protonix] 40 mg=1 tab, PO, Daily, # 14 tab, 0 Refill(s) Active 07/22/2016 [facility] pantoprazole 40 mg, Route: IVP, Drug form: INJ, ONCE, Dosing Weight 152.727, kg, Priority: STAT, Start date: 07/21/16 19:22:00 CARDIOLOGY RN, Stop date: 07/21/16 19:22:00 CSTNotes: For IV push reconstitute with 10 ml 0.9% sod ium chloride and push over 2 minutes. (Same as: Protonix) Inactive 07/22/2016 [facility] Saline Flush 0.9% 10 mL, Route: IVP, Drug Form: INJ, Dosing Weight 152.727, kg, PRN, PRN Line Flush, Start date: 07/21/16 16:58:00 CARDIOLOGY RN, Duration: 30 day, Stop date: 08/20/16 16:57:00 CSTNotes: (Same as: BD Posiflush) Inactive 07/21/2016 [facility] Movantik 12.5 Mg Tablet Take 12.5 mg by mouth daily. Oral Active 07/01/2016 [facility] naloxegol (MOVANTIK) 12.5 mg Tab Take 12.5 mg by mouth daily. Oral Active 07/01/2016 [facility] Movantik 12.5 Mg Tablet Take 12.5 mg by mouth daily. Oral Active 07/01/2016 [facility] Albuterol Sulfate 2.5 Mg/3 Ml (0.083 %) Solution For Nebulization Inhale 3 mL by mouth every 4 hours as needed for Wheezing or Shortness of Breath. Inhalation No Longer Active 06/19/2016 [facility] albuterol (PROVENTIL) 2.5 mg /3 mL (0.083 %) nebulizer solution Inhale 3 mL by mouth every 4 hours as needed for Wheezing or Shortness of Breath. Inhalation No Longer Active 06/19/2016 [facility] Nebulizer And Compressor 1 Device by [facility]Non-Drug; Combo Route) route 4 times daily. Active 05/02/2016 [facility] Nebulizer & Compressor For Neb [place] 1 Device by [facility]Non- Drug; Combo Route) route 4 times daily. Active 05/02/2016 [facility] Cetirizine 10 Mg Tablet Zyrtec 10 Mg Tablet Take 1 tablet by mouth daily. Oral Active 04/14/2016 [facility] Fluticasone 50 McG/Actuation Nasal [place],Suspension Flonase 50 McG/Actuation Nasal [place],Suspension Use 2 Sprays in each nostril daily. No Longer Active 04/14/2016 [facility] budesonide-formoterol (SYMBICORT HFA) 160-4.5 mcg/actuation inhaler Inhale 2 Puffs by mouth 2 times daily. Inhalation Active 04/14/2016 [facility] cetirizine (ZYRTEC) 10 mg tablet Take 1 tablet by mouth daily. Oral Active 04/14/2016 [facility] budesonide-formoterol (SYMBICORT HFA) 160-4.5 mcg/actuation inhaler Inhale 2 Puffs by mouth 2 times daily. Inhalation Active 04/14/2016 [facility] Nebulizer And Compressor 1 Device by [facility]Non-Drug; Combo Route) route 4 times daily COPD NEEDING NEBULIZER FOR HOME TREATMENTS OF ALBUTEROL SOLUTIONWITH TUBING AND MASK. Active 02/25/2016 [facility] Nebulizer & Compressor For Neb [place] 1 Device by [facility]Non- Drug; Combo Route) route 4 times daily COPD NEEDING NEBULIZER FOR HOME TREATMENTS OF ALBUTEROL SOLUTIONWITH TUBING AND MASK. Active 02/25/2016 [facility] Albuterol Sulfate 2.5 Mg/3 Ml (0.083 %) Solution For Nebulization Inhale 3 mL by mouth every 6 hours as needed for Wheezing. Inhalation Active 12/28/2015 [facility] Nebulizer And Compressor by [facility]Non-Drug; Combo Route) route Use as directed. Active 12/28/2015 [facility] Nebulizer Accessories Misc by [facility]Non-Drug; Combo Route) route Nebulizer mask. Active 12/28/2015 [facility] albuterol (PROVENTIL) 2.5 mg /3 mL (0.083 %) nebulizer solution Inhale 3 mL by mouth every 6 hours as needed for Wheezing. Inhalation Active 12/28/2015 [facility] Nebulizer & Compressor For Neb [place] by [facility]Non-Drug; Combo Route) route Use as directed. Active 12/28/2015 [facility] Nebulizer Accessories [facility] [place] [facility]Non-Drug; Combo Route) route Nebulizer mask. Active 12/28/2015 [facility] Lidocaine 5 % Topical Patch Lidoderm 5 % Topical Patch Apply 1 Patch to skin as directed daily Leave patch(es) on for up to 12 hours, then 12 hours off.. Transdermal Active 12/07/2015 [facility] Sumatriptan 100 Mg Tablet Imitrex 100 Mg Tablet Take 1 tablet by mouth at onset of headache. Repeat after 2 hours if needed. Maximum 200mg/24 hours.. Active 12/07/2015 [facility] lidocaine (LIDODERM) 5 % patch Apply 1 Patch to skin as directed daily Leave patch(es) on for up to 12 hours, then 12 hours off.. Transdermal Active 12/07/2015 [facility] SUMAtriptan (IMITREX) 100 mg tablet Take 1 tablet by mouth at onset of headache. Repeat after 2 hours if needed. Maximum 200mg/24 hours.. Active 12/07/2015 [facility] Lidocaine 5 % Topical Patch Lidoderm 5 % Topical Patch Apply 1 Patch to skin as directed daily Leave patch(es) on for up to 12 hours, then 12 hours off.. Transdermal Active 12/07/2015 [facility] Prednisone 60 mg, Route: PO, Drug form: TAB, ONCE, Dosing Weight 145.455, kg, Priority: STAT, Start date: 11/23/15 1:35:00 CDT, Stop date: 11/23/15 1:35:00 CDT Inactive 11/23/2015 [facility] tramadol hydrochloride 50 MG Oral Tablet [Ultram] 50 mg=1 tab, PO, Q4H, PRN pain, X 3 day, # 20 tab, 0 Refill(s) Active 11/23/2015 [facility] Ibuprofen 800 MG Oral Tablet [Motrin] 800 mg=1 tab, PO, TID, PRN Pain Score 4-6, # 15 tab, 0 Refill(s) Active 11/23/2015 [facility] {21 (Methylprednisolone 4 MG Oral Tablet [Medrol]) } Pack [Medrol Dosepak] See Instructions, PO, Take by mouth as directed on label., X 6 day, # 1 Pack, 0 Refill(s) Active 11/23/2015 [facility] Ketorolac 30 mg, Route: IVP, Drug form: INJ, ONCE, Dosing Weight 145.455, kg, Priority: STAT, Start date: 11/23/15 0:02:00 CDT, Stop date: 11/23/15 0:02:00 CDT Inactive 11/23/2015 [facility] tramadol hydrochloride 50 MG Oral Tablet 50 mg=1 tab, PO, Q6H, PRN pain, X 5 day, # 20 tab, 0 Refill(s) Active 10/01/2015 [facility] Cyclobenzaprine hydrochloride 5 MG Oral Tablet [Flexeril] 5 mg=1 tab, PO, TID, X 10 day, # 30 tab, 0 Refill(s) Active 10/01/2015 [facility] Ketorolac 30 mg, 1 mL, Route: IVP, Drug form: INJ, ONCE, Dosing Weight 147.727, kg, Priority: STAT, Start date: 10/01/15 1:15:00, Stop date: 10/01/15 1:15:00Notes: (Same as:Toradol) IV bolus must be given >15 seconds. Give IM administration slowly and deeply into the muscle. Not for use > 4 days MEDICATION WASTE Product Size: 30 mg Product Wasted: ___ mg Inactive 10/01/2015 [facility] Ketorolac 60 mg, 2 mL, Route: IM, Drug form: INJ, ONCE, Dosing Weight 147.727, kg, Priority: STAT, Start date: 09/30/15 22:46:00, Stop date: 09/30/15 22:46:00Notes: (Same as:Toradol) IV bolus must be given >15 seconds. Give IM administration slowly and deeply into the muscle. Not for use > 4 days MEDICATION WASTE Product Size: 60 mg Product Wasted: ___ mg No Longer Active 10/01/2015 [facility] Cialis 5 Mg Tablet Take 1 tablet by mouth as needed for Erectile Dysfunction. Oral Active 08/03/2015 [facility] Omeprazole 40 Mg Capsule,Delayed Release Take 1 capsule by mouth daily. Oral Active 08/03/2015 [facility] Ergocalciferol (Vitamin D2) 50,000 Unit Capsule Vitamin D2 50,000 Unit Capsule Take 1 capsule by mouth weekly. Oral Active 08/03/2015 [facility] Tadalafil (CIALIS) 5 mg tablet Take 1 tablet by mouth as needed for Erectile Dysfunction. Oral Active 08/03/2015 [facility] Omeprazole 40 mg capsule Take 1 capsule by mouth daily. Oral Active 08/03/2015 [facility] ergocalciferol (VITAMIN D2) 50,000 unit capsule Take 1 capsule by mouth weekly. Oral Active 08/03/2015 [facility] Medrol 4 mg oral tablet =1 pkt, PO, ONCE, as directed on package labeling, # 21 tab, 0 Refill(s)Special Instructions: as directed on package labeling Active 12/19/2014 [facility] Cyclobenzaprine hydrochloride 10 MG Oral Tablet [Flexeril] 10 mg=1 tab, PO, TID, PRN for spasm, # 30 tab, 0 Refill(s) Active 12/19/2014 [facility] tramadol hydrochloride 50 MG Oral Tablet [Ultram] 1 - 2 tabs, PO, Q4-6H, PRN Pain Score 4-6, X 4 day, # 30 tab, 0 Refill(s) Active 12/19/2014 [facility] Dilaudid 1 mg, 1 mL, Route: IM, Drug form: INJ, ONCE, Dosing Weight 152.273, kg, Start date: 12/18/14 18:12:00, Stop date: 12/18/14 18:12:00 Inactive 12/18/2014 [facility] Prednisone 60 mg, Route: PO, Drug form: TAB, ONCE, Dosing Weight 152.273, kg, Priority: STAT, Start date: 12/18/14 17:20:00, Stop date: 12/18/14 17:20:00 Inactive 12/18/2014 [facility] Ketorolac 60 mg, Route: IM, Drug form: INJ, ONCE, Dosing Weight 152.273, kg, Priority: STAT, Start date: 12/18/14 17:19:00, Stop date: 12/18/14 17:19:00 Inactive 12/18/2014 [facility] Flexeril 10 mg, Route: PO, ONCE, Dosing Weight 152.273, kg, Priority: STAT, Start date: 12/18/14 17:19:00, Stop date: 12/18/14 17:19:00 Inactive 12/18/2014 [facility] naproxen 500 mg oral tablet 500 mg=1 tab, PO, Q12H, PRN Pain, # 20 tab, 0 Refill(s) Active 10/23/2014 [facility] Morphine 4 mg, 2 mL, Route: IM, Drug form: INJ, ONCE, Dosing Weight 152.273, kg, Priority: STAT, Start date: 10/22/14 19:20:00, Stop date: 10/22/14 19:20:00Notes: (Same as:MORPhine Sulfate) Inactive 10/23/2014 [facility] ketOROLAC 30 mg/mL injectable solution 60 mg, Route: IM, Drug form: INJ, ONCE, Dosing Weight 152.273, kg, Priority: STAT, Start date: 10/22/14 19:20:00, Stop date: 10/22/14 19:20:00 Inactive 10/23/2014 [facility] predniSONE 20 mg oral tablet 20 mg=1 tab, PO, Daily, # 7 tab, 0 Refill(s) Active 03/04/2014 [facility] Acetaminophen 325 MG / Hydrocodone Bitartrate 5 MG Oral Tablet [Kimberly 5/325] 1 tab, PO, Q4-6H, as needed for pain, # 30 tab, 0 Refill(s) Active 03/04/2014 [facility] Morphine 4 mg, Route: IVP, Drug form: INJ, ONCE, Dosing Weight 152.273, kg, Priority: STAT, Start date: 03/04/14 3:30:00, Stop date: 03/04/14 3:30:00 Inactive 03/04/2014 [facility] Hydromorphone 1 mg, Route: IVP, ONCE, Dosing Weight 152.273, kg, Priority: STAT, Start date: 03/04/14 2:09:00, Stop date: 03/04/14 2:09:00 Inactive 03/04/2014 [facility] Ondansetron 4 mg, Route: IVP, ONCE, Dosing Weight 152.273, kg, Priority: STAT, Start date: 03/04/14 2:09:00, Stop date: 03/04/14 2:09:00 Inactive 03/04/2014 [facility] Saline Flush 0.9% 10 mL, Route: IVP, Drug Form: INJ, Dosing Weight 152.273, kg, PRN, PRN Line Flush, Start date: 03/04/14 2:09:00, Duration: 30 day, Stop date: 04/03/14 2:08:00Notes: (Same as: BD Posiflush) Inactive 03/04/2014 [facility] Sodium Chloride 0.154 MEQ/ML Injectable Solution 1,000 mL, Infuse Over: 1 hr, Route: IV, ONCE, Priority: STAT, Dosing Weight 152.273 kg, Start date: 03/04/14 2:09:00, Duration: 1 doses or times, Stop date: 03/04/14 2:09:00 Inactive 03/04/2014 [facility] Diphenhydramine Hydrochloride 25 MG Oral Capsule [Benadryl] 25 mg=1 cap, PO, Q6H, Allergic reaction, # 30 cap, 0 Refill(s) Active 03/02/2014 [facility] predniSONE 50 mg oral tablet 50 mg=1 tab, PO, Daily, # 7 tab, 0 Refill(s) Active 03/02/2014 [facility] Diphenhydramine 25 mg, 0.5 mL, Route: IVP, Drug form: INJ, ONCE, Dosing Weight 152.273, kg, Priority: STAT, Start date: 03/02/14 0:18:00, Stop date: 03/02/14 0:18:00Notes: (Same as: Benadryl) Inactive 03/02/2014 [facility] Famotidine 20 mg, 2 mL, Route: IVP, Drug form: INJ, ONCE, Dosing Weight 152.273, kg, Priority: STAT, Start date: 03/02/14 0:18:00, Stop date: 03/02/14 0:18:00Notes: (Same as: Pepcid) Can be dilute in 5-10cc NS IVP: Slow IV push over at least 2 minutes. Inactive 03/02/2014 [facility] Saline Flush 0.9% 10 mL, Route: IVP, Drug Form: INJ, Dosing Weight 152.273, kg, PRN, PRN Line Flush, Start date: 03/02/14 0:18:00, Duration: 30 day, Stop date: 04/01/14 0:17:00Notes: (Same as: BD Posiflush) Inactive 03/02/2014 [facility] methylPREDNISolone SODium SUCCinate 125 mg, 2 mL, Route: IVP, Drug form: INJ, ONCE, Dosing Weight 152.273, kg, Priority: STAT, Start date: 03/02/14 0:18:00, Stop date: 03/02/14 0:18:00Notes: (Same as:Solu-MEDROL, A-Methapred) Inactive 03/02/2014 [facility] Glucagon 1 mg, Route: IM, Drug form: PDR/INJ, ONCE, Dosing Weight 152.273, kg, Priority: STAT, Start date: 03/01/14 23:21:00, Stop date: 03/01/14 23:21:00 Inactive 03/02/2014 [facility] tramadol hydrochloride 50 MG Oral Tablet [Ultram] 1 - 2 tabs, PO, Q4-6H, .(Type PRN Reason Here...), # 30 tab, 0 Refill(s) Active 12/20/2013 [facility] Benadryl 50 mg, Route: IM, ONCE, Dosing Weight 143.182, kg, Priority: STAT, Start date: 12/19/13 17:59:00, Stop date: 12/19/13 17:59:00 Inactive 12/19/2013 [facility] Ibuprofen 800 mg, Route: PO, Drug form: TAB, ONCE, Dosing Weight 143.182, kg, Priority: STAT, Start date: 12/19/13 17:58:00, Stop date: 12/19/13 17:58:00 Inactive 12/19/2013 [facility] Metoclopramide 10 MG Oral Tablet [Reglan] 1 tab, Route: PO, ONCE, Dosing Weight 143.182, kg, Start date: 12/19/13 17:58:00, Stop date: 12/19/13 17:58:00 Inactive 12/19/2013 [facility] Kimberly 7.5/325 oral tablet 1 tab, PO, Q4H, for pain, # 12 tab, 0 Refill(s) Active [facility] 07/23/2013 [facility] Kimberly 7.5/325 oral tablet 1 tab, Route: PO, Dosing Weight 159.091, kg, ONCE, Start date: 07/22/13 19:06:00, Stop date: 07/22/13 19:06:00 Inactive [facility] 07/23/2013 [facility] ondansetron 4 mg, Route: IM, Drug form: INJ, ONCE, Dosing Weight 159.091, kg, Priority: STAT, Start date: 07/22/13 15:56:00, Stop date: 07/22/13 15:56:00 Inactive Sridhar 07/22/2013 [facility] morphine Sulfate 8 mg, Route: IM, Drug form: INJ, ONCE, Dosing Weight 159.091, kg, Priority: STAT, Start date: 07/22/13 15:56:00, Stop date: 07/22/13 15:56:00 Inactive [facility] 07/22/2013 [facility] Zolpidem 10 Mg Tablet Take 1 tablet by mouth at bedtime. Oral Active 01/13/2012 [facility] zolpidem (AMBIEN) 10 mg Tab Take 1 tablet by mouth at bedtime. Oral Active 01/13/2012 [facility] Allergies, Adverse Reactions, Alerts Substance Category Reaction Severity Reaction type Status Date Reported Comments Source Hydrocodone "FEELS WEIRD" Intermediate Allergy to Substance Active 03/13/2018 [facility] Acetaminophen "FEELS WEIRD" Intermediate Allergy to Substance Active 03/13/2018 [facility] Tramadol "FEELS WEIRD" Intermediate Allergy to Substance Active 03/13/2018 [facility] Kimberly Assertion Drug allergy Active [facility] traMADol Assertion Drug allergy Active [facility] Immunizations Immunization Date Given Site Status Last Updated Comments Source Influenza, Vaccine<FLUCELVAX>(Multi-Dose) 03/30/2018 Not Given Deferred: Patient Refused [facility] Influenza, Vaccine<FLUCELVAX>(Multi-Dose) 03/30/2018 Not Given Deferred: Patient Refused [facility] Influenza Vaccine 05/07/2017 Not Given Deferred: Patient Refused [facility] Influenza Vaccine, Seasonal, Injectable 05/07/2017 Not Given Deferred: Patient Refused [facility] pneumococcal 23-valent vaccine 02/09/2017 Not Given Arun,[facility] pneumococcal 23-valent vaccine<sup>1</sup> 02/09/2017 [facility] 02/09/2017 Not Given [facility], JACQUI Castano pneumococcal 23-valent vaccine<sup>1</sup> 02/09/2017 Not Given [facility] pneumococcal 23-valent vaccine<sup>1</sup> 02/09/2017 [facility]-valent [facility]<sup>1</sup> 02/09/2017 [facility] (3ml) 12/28/2015 completed [facility] Albuterol 0.083% (3ml) 12/14/2015 completed [facility] KETOROLAC 60 MG/2 ML IM 12/07/2015 completed [facility] KETOROLAC 60 MG/2 ML IM 11/05/2015 completed [facility] Triamcinolone 40mg/ml Inj 11/05/2015 completed [facility] KETOROLAC 60 MG/2 ML IM 10/05/2015 completed [facility] Triamcinolone 40mg/ml Inj 10/05/2015 completed [facility] KETOROLAC 60 MG/2 ML IM 09/03/2015 completed [facility] Triamcinolone 40mg/ml Inj 09/03/2015 completed [facility] Bicillin LA (pen G Benzathine 1,200,000u/2ml) 04/30/2015 completed [facility] Bicillin LA (pen G Benzathine 1,200,000u/2ml) 01/16/2015 completed [facility] Bicillin LA (pen G Benzathine 1,200,000u/2ml) 12/11/2014 completed [facility] KETOROLAC 60 MG/2 ML IM 03/27/2014 completed [facility] Bicillin LA (pen G Benzathine 1,200,000u/2ml) 03/27/2014 completed [facility] KETOROLAC 60 MG/2 ML IM 01/23/2014 completed [facility] Bicillin LA (pen G Benzathine 1,200,000u/2ml) 01/23/2014 completed [facility] Vitamin B12 Cyanocobalamin 1000mcg Inj 05/13/2013 completed [facility] Bicillin LA (pen G Benzathine 1,200,000u/2ml) 05/13/2013 completed [facility] Bicillin LA (pen G Benzathine 1,200,000u/2ml) 12/27/2012 completed [facility] Bicillin LA (pen G Benzathine 1,200,000u/2ml) 08/24/2012 completed [facility] Bicillin LA (pen G Benzathine 1,200,000u/2ml) 07/12/2012 completed [facility] Bicillin LA (pen G Benzathine 1,200,000u/2ml) 01/13/2012 completed [facility] Bicillin LA (pen G Benzathine 1,200,000u/2ml) 06/27/2011 completed [facility] Bicillin LA (pen G Benzathine 1,200,000u/2ml) 04/25/2011 completed [facility] Bicillin LA (pen G Benzathine 1,200,000u/2ml) 01/13/2011 completed [facility] Vitamin B12 Cyanocobalamin 1000mcg Inj 05/10/2010 completed [facility] Bicillin LA (pen G Benzathine 1,200,000u/2ml) 05/10/2010 completed [facility] Bicillin LA (pen G Benzathine 1,200,000u/2ml) 04/19/2010 completed [facility] Triamcinolone 40mg/ml Inj 04/19/2010 completed [facility] Vitamin B12 Cyanocobalamin 1000mcg Inj 04/19/2010 completed [facility] Triamcinolone 40mg/ml Inj 10/12/2009 completed [facility] Bicillin LA (pen G Benzathine 1,200,000u/2ml) 10/12/2009 completed [facility] Ceftriazone 1gm Injection 08/14/2009 completed [facility] Bicillin LA (pen G Benzathine 1,200,000u/2ml) 07/09/2009 completed [facility] Vitamin B12 Cyanocobalamin 1000mcg Inj 07/09/2009 completed [facility] Bicillin LA (pen G Benzathine 1,200,000u/2ml) 06/04/2009 completed [facility] Vitamin B12 Cyanocobalamin 1000mcg Inj 06/04/2009 completed [facility] Bicillin LA (pen G Benzathine 1,200,000u/2ml) 05/07/2009 completed [facility] Ketorolac 60mg/2ml Syr Inj 04/20/2009 completed [facility] Bicillin LA (pen G Benzathine 1,200,000u/2ml) 04/20/2009 completed [facility] Influenza Vaccine 04/10/2009 completed [facility] Ceftriazone 1gm Injection 04/10/2009 completed [facility] Ketorolac 60mg/2ml Syr Inj 04/10/2009 completed [facility] Bicillin LA (pen G Benzathine 1,200,000u/2ml) 03/27/2009 completed [facility] Toradol 60mg/2ml Syringe 03/27/2009 completed [facility] Toradol 60mg/2ml Syringe 01/29/2009 completed [facility] Vitamin B12 Cyanocobalamin 1000mcg Inj 01/29/2009 completed [facility] Triamcinolone 40mg/ml Inj 01/29/2009 completed [facility] Vitamin B12 Cyanocobalamin 1000mcg Inj 01/15/2009 completed [facility] Bicillin LA (pen G Benzathine 1,200,000u/2ml) 01/15/2009 completed [facility] Vitamin B12 Cyanocobalamin 1000mcg Inj 11/08/2008 completed [facility] Ceftriazone 1gm Injection 11/08/2008 completed [facility] Vitamin B12 Cyanocobalamin 1000mcg Inj 10/09/2008 completed [facility] Vitamin B12 Cyanocobalamin 1000mcg Inj 08/17/2008 completed [facility] Vitamin B12 Cyanocobalamin 1000mcg Inj 07/27/2008 completed [facility] Ceftriazone 1gm Injection 06/15/2008 completed [facility] Influenza Vaccine 06/01/2008 completed [facility] Ceftriazone 1gm Injection 05/18/2008 completed [facility] Influenza Vaccine 08/17/2007 completed [facility] Td Tetanus, diphtheria Toxoids Vaccine 06/25/2007 completed [facility] Results Order Name Results Value Reference Range Date Interpretation Comments Source URINE DRUG SCREEN Amphetamine Negative NEG 09/27/2018 Calibrated Standard: D-Methamphetamine Positive if urine level >vi=5176 ng/mL Test performed on [id number] using EMIT Immunoassay [facility] URINE DRUG SCREEN Barbiturate Negative NEG 09/27/2018 Calibrated Standard: Secobarbital Positive if urine level is >ho=120 ng/mL Test performed on [id number] using EMIT Immunoassay [facility] URINE DRUG SCREEN Benzodiazepine Negative NEG 09/27/2018 Calibrated Standard: Lormethazepam Positive if urine level is >tz=592 ng/mL Test performed on [id number] using EMIT Immunoassay [facility] URINE DRUG SCREEN Cannabinoid Negative NEG 09/27/2018 Calibrated Standard: 11 nor-delta(9)-THC carboxylic a Positive if urine level >or=50 Test performed on [id number] using EMIT Immunoassay [facility] URINE DRUG SCREEN Cocaine Negative NEG 09/27/2018 Calibrated Standard: Benzoylecgonine Positive if urine level >of=165 Test performed on [id number] using EMIT Immunoassay [facility] URINE DRUG SCREEN Opiate, Ur Negative NEG 09/27/2018 Calibrated Standard: Morphine Positive if urine level >rw=294 Test performed on [id number] using EMIT Immunoassay [facility] URINE DRUG SCREEN PCP Negative NEG 09/27/2018 Calibrated Standard: Phencyclidine Positive if urine level >or=25 Test performed on [id number] using EMIT Immunoassay Urine Toxicology Screen results are to be used only for Medical purposes. [place] [facility] Abdomen w/wo contrast MRA Abdomen w/wo contrast MRA INDICATION: R10.9 Unspecified abdominal pain. COMPARISON: Abdomen/pelvis CT without contrast dated 06/11/2018 TECHNIQUE: Multiplanar multisequential MR images of the abdomen were obtained with and without intravenous contrast administration for purposes of evaluation of the abdominal aorta. Contrast: 20 mL Dotarem FINDINGS: Lines and tubes: None. Lower thorax: Unremarkable. Liver and biliary tree: Unremarkable Gallbladder: Unremarkable Pancreas: Unremarkable Spleen: Unremarkable Adrenals: Unremarkable Kidneys and proximal ureters: Unremarkable Gastrointestinal tract: Unremarkable with normal caliber. Peritoneum and retroperitoneum: No ascites or free air. Lymph nodes: No pathologic adenopathy. Vasculature: The abdominal aorta and portions of the thoracic aorta are normal in appearance. There is no significant atherosclerotic plaque. There is no evidence of dissection or aneurysm. The branching pattern is normal. There is no branch stenosis. The renal arteries are patent bilaterally measuring approximately 7 mm in diameter at the origins. Bones: There is severe disc disease at T11-T12 which includes a posterior disc bulge that significantly narrows the spinal canal Soft tissues: Unremarkable. IMPRESSION: Unremarkable abdominal aorta. 07/22/2018 - - Read by: Kristen Terrazas Date/time: 07/22/18 13:07 Electronically Signed by: Kristen Terrazas 07/22/18 13:35 FINAL REPORT [facility] Abdomen/Pelvis wo IV contrast CT Abdomen/Pelvis wo IV contrast CT EXAM: CT ABDOMEN AND PELVIS WITHOUT CONTRAST DATE: 06/11/2018 10:59 PM CARDIOLOGY RN INDICATION: Abdominal pain. Distention. COMPARISON: 02/24/2018. TECHNIQUE: Helical CT imaging of the abdomen and pelvis performed from lung bases through the lesser trochanters without intravenous contrast. Axial, sagittal, and coronal multiplanar reconstructions were provided. IV contrast: None. CT Radiation Dose: JXJ=239.99 mGy-cm FINDINGS: Evaluation of the solid organs is limited without intravenous contrast. LOWER CHEST: A 6 mm pulmonary nodule is noted within the left lower lobe, series 2 image 14. The heart is not enlarged, however coronary artery calcifications are visualized. LIVER: Unremarkable. GALLBLADDER/BILIARY: Unremarkable. PANCREAS: Unremarkable SPLEEN: Unremarkable ADRENALS: Unremarkable KIDNEYS AND URETERS: Unremarkable BLADDER: Unremarkable STOMACH: Unremarkable. BOWEL: The small bowel is normal in course and caliber without focal wall thickening or evidence for obstruction. The colon is unremarkable. APPENDIX: The appendix is visualized and unremarkable. PELVIS: No pelvic masses are identified. PERITONEUM: No ascites or free air. LYMPH NODES: Unremarkable. VASCULAR: Minimal atherosclerotic calcification of the aorta. OSSEOUS STRUCTURES: Well-corticated bony fragment along the anterior and superior aspect of the T12 vertebral body. Moderate degenerative change at L5-S1 is present. SOFT TISSUES: Bilateral fat-containing inguinal hernias are identified. IMPRESSION: 1. No acute abnormality in the abdomen or pelvis. 2. Incidental 6 mm pulmonary nodule within the left lower lobe. Follow-up per Fleischner criteria. SL: [id number] 06/11/2018 - - Read by: Jose Pruitt MD Dictated Date/time: 06/11/18 23:19 Electronically Signed by: Jose Pruitt MD 06/11/18 23:27 FINAL REPORT [facility] URINE DRUG SCREEN Amphetamine Negative NEG 06/05/2018 Calibrated Standard: D-Methamphetamine Positive if urine level >ei=8629 ng/mL Test performed on [id number] using EMIT Immunoassay [facility] URINE DRUG SCREEN Barbiturate Negative NEG 06/05/2018 Calibrated Standard: Secobarbital Positive if urine level is >ut=175 ng/mL Test performed on [id number] using EMIT Immunoassay [facility] URINE DRUG SCREEN Benzodiazepine Negative NEG 06/05/2018 Calibrated Standard: Lormethazepam Positive if urine level is >it=733 ng/mL Test performed on [id number] using EMIT Immunoassay [facility] URINE DRUG SCREEN Cannabinoid Negative NEG 06/05/2018 Calibrated Standard: 11 nor-delta(9)-THC carboxylic a Positive if urine level >or=50 Test performed on [id number] using EMIT Immunoassay [facility] URINE DRUG SCREEN Cocaine Negative NEG 06/05/2018 Calibrated Standard: Benzoylecgonine Positive if urine level >cx=184 Test performed on [id number] using EMIT Immunoassay [facility] URINE DRUG SCREEN Opiate, Ur Negative NEG 06/05/2018 Calibrated Standard: Morphine Positive if urine level >pt=953 Test performed on [id number] using EMIT Immunoassay [facility] URINE DRUG SCREEN PCP Negative NEG 06/05/2018 Calibrated Standard: Phencyclidine Positive if urine level >or=25 Test performed on [id number] using EMIT Immunoassay Urine Toxicology Screen results are to be used only for Medical purposes. [facility] URINE AND STOOL UA Nitrite Negative (05/10/18 11:05 PM) Negative 05/11/2018 [facility] URINE AND STOOL UA Leuk Est Negative (05/10/18 11:05 PM) Negative 05/11/2018 [facility] URINE AND STOOL UA Urobilinogen 0.2 EU/dL 0.1 - 1.0 05/11/2018 [facility] URINE AND STOOL UA Bili Negative *NA* (05/10/18 11:05 PM) Negative 05/11/2018 [facility] URINE AND STOOL UA Blood Negative (05/10/18 11:05 PM) Negative 05/11/2018 [facility] URINE AND STOOL UA Glucose Negative mg/dL Negative mg/dL 05/11/2018 [facility] URINE AND STOOL UA pH 6.0 5.0 - 8.0 05/11/2018 [facility] URINE AND STOOL UA Protein Negative mg/dL Negative mg/dL 05/11/2018 [facility] URINE AND STOOL UA Ketones Negative mg/dL Negative mg/dL 05/11/2018 [facility] URINE AND STOOL UA Spec Grav 1.020 <=1.030 05/11/2018 [facility] URINE AND STOOL UA Color Yellow *NA* (05/10/18 11:05 PM) Yellow 05/11/2018 [facility] URINE AND STOOL UA Turbidity Slight Cloudy (05/10/18 11:05 PM) Clear 05/11/2018 [facility] URINE AND STOOL UA WBC None Seen (05/10/18 11:05 PM) None Seen 05/11/2018 [facility] URINE AND STOOL UA RBC None Seen (05/10/18 11:05 PM) 0 - 2 05/11/2018 [facility] URINE AND STOOL UA Bacteria None Seen (05/10/18 11:05 PM) None Seen 05/11/2018 [facility] URINE AND STOOL UA Sq Epi None Seen (05/10/18 11:05 PM) Few 05/11/2018 [facility] Abdomen AP DX Abdomen AP DX EXAM: XR ABDOMEN 1 VIEW DATE: 05/11/2018 1:53 AM CARDIOLOGY RN INDICATION: - abd pain ADDITIONAL INFORMATION: None. COMPARISON: Abdomen pelvis CT dated February 24, 2018. TECHNIQUE: Supine AP view of the abdomen. 4 images FINDINGS: Scattered gas and stool seen throughout the colon. No abnormally dilated bowel loops are appreciated. Assessment for free air is limited due to supine position. Vascular calcifications noted. IMPRESSION: Nonobstructive bowel gas pattern. [place] SECTION: ER 05/11/2018 - - This report was dictated by a Ore Washer/Fellow. I have personally reviewed the images as well as the Resident's interpretation and agree with the findings. Read by: Toni Lai MD Resident: Toni Lai MD Dictated Date/time: 05/11/18 02:16 Electronically Signed by: Doe Sadler 05/11/18 02:49 FINAL REPORT [facility] CHEM PANEL Lipase Lvl 155 unit/L 73 - 393 05/10/2018 [facility] CHEM PANEL eGFR 88 mL/min/1.73m2 05/10/2018 Result Comment: The eGFR is calculated using the CKD-EPI formula. In most young, healthy individuals the eGFR will be >90 mL/min/1.73m2. The eGFR declines with age. An eGFR of 60-89 may be normal in some populations, particularly the elderly, for whom the CKD-EPI formula has not been extensively validated. Use of the eGFR is not recommended in the following populations: Individuals with unstable creatinine concentrations, including patients and those with serious co-morbid conditions. Patients with extremes in muscle mass or diet. The data above are obtained from the National Kidney Disease Education Program (NKDEP) which additionally recommends that when the eGFR is used in patients with extremes of body mass index for purposes of drug dosing, the eGFR should be multiplied by the estimated BMI. [facility] CHEM PANEL Glucose Lvl 93 mg/dL 70 - 99 05/10/2018 [facility] CHEM PANEL BUN 16 mg/dL 7 - 22 05/10/2018 [facility] CHEM PANEL CO2 29 meq/L 24 - 32 05/10/2018 [facility] CHEM PANEL Chloride Lvl 104 meq/L 95 - 109 05/10/2018 [facility] CHEM PANEL Sodium Lvl 139 meq/L 135 - 145 05/10/2018 [facility] CHEM PANEL Creatinine Lvl 0.95 mg/dL 0.50 - 1.40 05/10/2018 [facility] CHEM PANEL Potassium Lvl 3.8 meq/L 3.5 - 5.1 05/10/2018 [facility] CHEM PANEL Calcium Lvl 8.9 mg/dL 8.5 - 10.5 05/10/2018 [facility] CHEM PANEL AGAP 9.8 meq/L 10.0 - 20.0 05/10/2018 [facility] HEMATOLOGY Lymphocytes # 1.2 K/CMM 1.0 - 5.5 05/10/2018 [facility] HEMATOLOGY Monocytes # 0.5 K/CMM 0.0 - 0.8 05/10/2018 [facility] HEMATOLOGY Neutrophils # 6.3 K/CMM 1.5 - 8.1 05/10/2018 [facility] HEMATOLOGY Eosinophils 0.4 % 0.0 - 4.0 05/10/2018 [facility] HEMATOLOGY Basophils 0.4 % 0.0 - 1.0 05/10/2018 [facility] HEMATOLOGY Monocytes 6.2 % 2.0 - 12.0 05/10/2018 [facility] HEMATOLOGY Segs 77.8 % 45.0 - 75.0 05/10/2018 [facility] HEMATOLOGY Lymphocytes 15.2 % 20.0 - 40.0 05/10/2018 [facility] HEMATOLOGY Platelet 151 K/CMM 133 - 450 05/10/2018 [facility] HEMATOLOGY MPV 7.8 fL 7.4 - 10.4 05/10/2018 [facility] HEMATOLOGY RBC 4.25 M/CMM 4.70 - 6.10 05/10/2018 [facility] HEMATOLOGY Hct 40.7 % 42.0 - 54.0 05/10/2018 [facility] HEMATOLOGY Hgb 14.3 g/dL 14.0 - 18.0 05/10/2018 [facility] HEMATOLOGY WBC 8.1 K/CMM 3.7 - 10.4 05/10/2018 [facility] HEMATOLOGY MCH 33.8 pg 27.0 - 31.0 05/10/2018 [facility] between [facility] HEMATOLOGY RDW 13.1 % 11.5 - 14.5 05/10/2018 [facility] HEMATOLOGY MCHC 35.2 g/dL 32.0 - 36.0 05/10/2018 [facility] HEMATOLOGY MCV 95.8 fL 80.0 - 94.0 05/10/2018 [facility] URINE DRUG SCREEN Amphetamine Negative NEG 05/01/2018 Calibrated Standard: D-Methamphetamine Positive if urine level >bv=9403 ng/mL Test performed on [id number] using EMIT Immunoassay [facility] URINE DRUG SCREEN Barbiturate Negative NEG 05/01/2018 Calibrated Standard: Secobarbital Positive if urine level is >gc=888 ng/mL Test performed on [id number] using EMIT Immunoassay [facility] URINE DRUG SCREEN Benzodiazepine Negative NEG 05/01/2018 Calibrated Standard: Lormethazepam Positive if urine level is >np=290 ng/mL Test performed on [id number] using EMIT Immunoassay [facility] URINE DRUG SCREEN Cannabinoid Negative NEG 05/01/2018 Calibrated Standard: 11 nor-delta(9)-THC carboxylic a Positive if urine level >or=50 Test performed on [id number] using EMIT Immunoassay [facility] URINE DRUG SCREEN Cocaine Negative NEG 05/01/2018 Calibrated Standard: Benzoylecgonine Positive if urine level >ke=784 Test performed on [id number] using EMIT Immunoassay [facility] URINE DRUG SCREEN Opiate, Ur Negative NEG 05/01/2018 Calibrated Standard: Morphine Positive if urine level >aw=216 Test performed on [id number] using EMIT Immunoassay [facility] URINE DRUG SCREEN PCP Negative NEG 05/01/2018 Calibrated Standard: Phencyclidine Positive if urine level >or=25 Test performed on [id number] using EMIT Immunoassay Urine Toxicology Screen results are to be used only for Medical purposes. [facility] ENDOMYSIAL AB IGA Endomysial Ab IgA Negative Reference range: Negative 04/03/2018 [facility] GASTRIN, SERUM Gastrin, Serum 25 Reference range: 0 to 115 Unit: pg/mL (note) Siemens Immulite 2000 Immunochemiluminometric assay (ICMA) 04/02/2018 [facility] URINE AND STOOL UA Color Ltyellow 04/01/2018 [facility] URINE AND STOOL UA Sq Epi None Seen 04/01/2018 [facility] URINE AND STOOL UA Glucose Negative mg/dL Negative mg/dL 04/01/2018 [facility] URINE AND STOOL UA Blood Negative (04/01/18 5:03 PM) Negative 04/01/2018 [facility] URINE AND STOOL UA Urobilinogen 2.0 mg/dL 0.1 - 1.0 04/01/2018 [facility] URINE AND STOOL UA Nitrite Negative (04/01/18 5:03 PM) Negative 04/01/2018 [facility] URINE AND STOOL UA Ketones Negative mg/dL Negative mg/dL 04/01/2018 [facility] URINE AND STOOL UA Bili Negative *NA* (04/01/18 5:03 PM) Negative 04/01/2018 [facility] URINE AND STOOL UA Leuk Est Negative (04/01/18 5:03 PM) Negative 04/01/2018 [facility] URINE AND STOOL UA WBC 1 /HPF 0 - 5 04/01/2018 [facility] URINE AND STOOL UA RBC null 0 - 2 04/01/2018 [facility] URINE AND STOOL UA pH 8.0 5.0 - 8.0 04/01/2018 [facility] URINE AND STOOL UA Spec Grav 1.013 <=1.030 04/01/2018 [facility] URINE AND STOOL UA Turbidity Clear (04/01/18 5:03 PM) Clear 04/01/2018 [facility] URINE AND STOOL UA Protein Negative mg/dL Negative mg/dL 04/01/2018 [facility] CHEM PANEL Lipase Lvl 133 unit/L 73 - 393 04/01/2018 [facility] CHEM PANEL eGFR 96 mL/min/1.73m2 04/01/2018 Result Comment: The eGFR is calculated using the CKD-EPI formula. In most young, healthy individuals the eGFR will be >90 mL/min/1.73m2. The eGFR declines with age. An eGFR of 60-89 may be normal in some populations, particularly the elderly, for whom the CKD-EPI formula has not been extensively validated. Use of the eGFR is not recommended in the following populations: Individuals with unstable creatinine concentrations, including patients and those with serious co-morbid conditions. Patients with extremes in muscle mass or diet. The data above are obtained from the National Kidney Disease Education Program (NKDEP) which additionally recommends that when the eGFR is used in patients with extremes of body mass index for purposes of drug dosing, the eGFR should be multiplied by the estimated BMI. [facility] CHEM PANEL Glucose Lvl 97 mg/dL 70 - 99 04/01/2018 [facility] CHEM PANEL Creatinine Lvl 0.87 mg/dL 0.50 - 1.40 04/01/2018 [facility] CHEM PANEL BUN 14 mg/dL 7 - 22 04/01/2018 [facility] CHEM PANEL Potassium Lvl 3.9 meq/L 3.5 - 5.1 04/01/2018 [facility] CHEM PANEL Sodium Lvl 143 meq/L 135 - 145 04/01/2018 [facility] CHEM PANEL Bili Total 0.6 mg/dL 0.2 - 1.3 04/01/2018 [facility] CHEM PANEL Alk Phos 62 unit/L 39 - 136 04/01/2018 [facility] CHEM PANEL AST 12 unit/L 0 - 37 04/01/2018 [facility] CHEM PANEL ALT 21 unit/L 0 - 65 04/01/2018 [facility] CHEM PANEL Albumin Lvl 3.1 g/dL 3.5 - 5.0 04/01/2018 [facility] CHEM PANEL Total Protein 6.6 g/dL 6.4 - 8.4 04/01/2018 [facility] CHEM PANEL Calcium Lvl 8.4 mg/dL 8.5 - 10.5 04/01/2018 [facility] CHEM PANEL CO2 28 meq/L 24 - 32 04/01/2018 [facility] CHEM PANEL Chloride Lvl 106 meq/L 95 - 109 04/01/2018 [facility] CHEM PANEL A/G Ratio 0.9 0.7 - 1.6 04/01/2018 [facility] CHEM PANEL Globulin 3.5 g/dL 2.7 - 4.2 04/01/2018 [facility] CHEM PANEL B/C Ratio 16 6 - 25 04/01/2018 [facility] CHEM PANEL AGAP 12.9 meq/L 10.0 - 20.0 04/01/2018 [facility] HEMATOLOGY Lymphocytes # 1.0 K/CMM 1.0 - 5.5 04/01/2018 [facility] HEMATOLOGY Monocytes # 0.5 K/CMM 0.0 - 0.8 04/01/2018 [facility] HEMATOLOGY Basophils 0.4 % 0.0 - 1.0 04/01/2018 [facility] HEMATOLOGY Eosinophils 0.2 % 0.0 - 4.0 04/01/2018 [facility] HEMATOLOGY Neutrophils # 6.0 K/CMM 1.5 - 8.1 04/01/2018 [facility] HEMATOLOGY Lymphocytes 13.5 % 20.0 - 40.0 04/01/2018 [facility] HEMATOLOGY Monocytes 6.3 % 2.0 - 12.0 04/01/2018 [facility] HEMATOLOGY Segs 79.6 % 45.0 - 75.0 04/01/2018 [facility] Platelet 125 K/CMM 133 - 450 04/01/2018 [facility] MCHC 34.4 g/dL 32.0 - 36.0 04/01/2018 [facility] RDW 14.0 % 11.5 - 14.5 04/01/2018 [facility] MCH 33.8 pg 27.0 - 31.0 04/01/2018 [facility] Hct 41.1 % 42.0 - 54.0 04/01/2018 [facility] MCV 98.4 fL 80.0 - 94.0 04/01/2018 [facility] Hgb 14.2 g/dL 14.0 - 18.0 04/01/2018 [facility] RBC 4.18 M/CMM 4.70 - 6.10 04/01/2018 [facility] MPV 8.3 fL 7.4 - 10.4 04/01/2018 [facility] WBC 7.6 K/CMM 3.7 - 10.4 04/01/2018 [facility] TSH TSH 0.94 0.57 - 3.74 04/01/2018 [facility] B NATRIURETIC PEPT B Natriuretic Pept 25 pg/mL <101 03/31/2018 [facility] HEPATITIS PANEL HCV IgG Negative NEG 03/31/2018 [facility] HEPATITIS PANEL HBsAg Negative NEG 03/31/2018 [facility] HEPATITIS PANEL HAV, IgM Negative NEG 03/31/2018 [facility] HEPATITIS PANEL HBcAb, IgM Negative NEG 03/31/2018 [facility] HIV-1/HIV-2 ROUTINE SCREENING HIV-1/HIV-2 Negative NEG 03/31/2018 [facility] AMYLASE Amylase 38 U/L 29 - 103 03/31/2018 [facility] HEMOGLOBIN A1C Hemoglobin A1c 5.4 % 4.3 - 6.1 03/31/2018 [facility] HEMOGLOBIN A1C Est Average Gluc 108.3 mg/dL 03/31/2018 [facility] ELECTROLYTES Sodium 138 mmol/L 136 - 145 03/31/2018 [facility] ELECTROLYTES Potassium 3.8 mmol/L 3.5 - 5.1 03/31/2018 [facility] ELECTROLYTES Chloride 100 mmol/L 98 - 107 03/31/2018 [facility] ELECTROLYTES CO2 29 mmol/L 21 - 31 03/31/2018 [facility] ELECTROLYTES Anion Gap 9 03/31/2018 [facility] GLUCOSE, FASTING Glucose, Fasting 90 mg/dL 74 - 106 03/31/2018 [facility] LIPASE Lipase 16 U/L 11 - 82 03/31/2018 [facility] LIPID PROFILE Cholesterol 125 mg/dL 03/31/2018 REFERENCE RANGE: Desirable: <200 mg/dL Borderline: 200-240 mg/dL High Risk: >240 mg/dL [facility] LIPID PROFILE Triglyceride 62 mg/dL <150 03/31/2018 REFERENCE RANGE: Normal: <150 mg/dL Borderline High: 150-199 mg/dL High: 200-499 mg/dL Very High: >go=730 mg/dL [facility] LIPID PROFILE HDL 40 mg/dL 03/31/2018 Increased CHD risk: <40 mg/dL Decreased CHD risk: >60 mg/dL [facility] LIPID PROFILE LDL 73 mg/dL 03/31/2018 REFERENCE RANGE: Optimal: <100 mg/dL Near Optimal: 100-129 mg/dL Borderline High: 130-159 mg/dL High: 160-189 mg/dL Very High: >wh=429 mg/dL [facility] LIVER PROFILE T Protein 6.1 g/dL 6 - 8.3 03/31/2018 [facility] LIVER PROFILE Albumin 3.7 g/dL 4.2 - 5.5 03/31/2018 [facility] LIVER PROFILE T Bilirubin 0.8 mg/dL 0.2 - 1.2 03/31/2018 [facility] LIVER PROFILE Alk Phos 56 U/L 34 - 104 03/31/2018 [facility] LIVER PROFILE AST 12 U/L 13 - 39 03/31/2018 [facility] LIVER PROFILE ALT 13 U/L 7 - 52 03/31/2018 [facility] LIVER PROFILE D Bilirubin 0.2 mg/dL 0 - 0.2 03/31/2018 [facility] LIVER PROFILE Lab Interpretation Abnormal 03/31/2018 [facility] UREA NITROGEN/CREA Urea Nitrogen 14 mg/dL 7 - 25 03/31/2018 [facility] UREA NITROGEN/CREA Creatinine 0.80 mg/dL 0.7 - 1.3 03/31/2018 [facility] UREA NITROGEN/CREA GFR, Estimated >60 mL/min/1.73 m2 03/31/2018 [facility] UREA NITROGEN/CREA GFR, Estim, Afr-Am >60 mL/min/1.73 m2 03/31/2018 [facility] CBC WBC 7.7 K/uL 4.5 - 12 03/31/2018 [facility] CBC RBC 4.54 4.60 - 6.20 03/31/2018 [facility] CBC Hemoglobin 15.2 g/dL 14 - 18 03/31/2018 [facility] CBC Hematocrit 46.1 % 40 - 54 03/31/2018 [facility] CBC MCV 102 fL 82 - 92 03/31/2018 [facility] CBC MCH 33.5 pg 27 - 31 03/31/2018 [facility] CBC MCHC 33.0 g/dL 32 - 36 03/31/2018 [facility] CBC RDW 49.3 fL 35.1 - 43.9 03/31/2018 [facility] CBC Platelet 153 K/uL 150 - 400 03/31/2018 [facility] CBC Mean Platelet Volume 11.2 fL 9.4 - 12.4 03/31/2018 [facility] CBC Percent NRBC 0.0 03/31/2018 [facility] CBC Absolute NRBC 0.00 03/31/2018 [facility] CBC Lab Interpretation Abnormal 03/31/2018 [facility] UA CHEMISTRIES Color Yellow 03/31/2018 [facility] UA CHEMISTRIES Clarity Clear 03/31/2018 [facility] UA CHEMISTRIES Spec [place] 1.010 1.001 - 1.035 03/31/2018 [facility] UA CHEMISTRIES pH 7.0 5 - 8 03/31/2018 [facility] UA CHEMISTRIES Protein Negative NEG 03/31/2018 [facility] UA CHEMISTRIES Glucose Negative NEG 03/31/2018 [facility] UA CHEMISTRIES Ketone Negative NEG 03/31/2018 [facility] UA CHEMISTRIES Bilirubin Negative NEG 03/31/2018 [facility] UA CHEMISTRIES Nitrate Negative NEG 03/31/2018 [facility] UA CHEMISTRIES Urobilinogen <1.0 0.2 - 1 03/31/2018 [facility] UA CHEMISTRIES Leukocyte Negative NEG 03/31/2018 [facility] UA CHEMISTRIES Blood Negative NEG 03/31/2018 [facility] Automated urine sediment leukocyte count by microscopy (number/high power field) Automated urine sediment leukocyte count by microscopy (number/high power field) null 0 - 5 03/13/2018 [facility] Bacteria detection in urine sediment by light microscopy Bacteria detection in urine sediment by light microscopy RARE NONE 03/13/2018 [facility] Epithelial cells detection in urine sediment by light microscopy Epithelial cells detection in urine sediment by light microscopy RARE NONE 03/13/2018 [facility] Erythrocytes detection in urine sediment by light microscopy Erythrocytes detection in urine sediment by light microscopy null 0 - 5 03/13/2018 [facility] Specific gravity of Urine by Test strip Specific gravity of Urine by Test strip 1.005 1.010 - 1.025 03/13/2018 [facility] Urine clarity Urine clarity CLEAR CLEAR 03/13/2018 [facility] Urine color determination Urine color determination YELLOW YELLOW 03/13/2018 [facility] Urine erythrocytes detection Urine erythrocytes detection NEGATIVE NEGATIVE 03/13/2018 [facility] Urine glucose detection Urine glucose detection NEGATIVE NEGATIVE 03/13/2018 [facility] Urine ketones detection by automated test strip Urine ketones detection by automated test strip NEGATIVE NEGATIVE 03/13/2018 [facility] Urine leukocyte esterase detection by dipstick Urine leukocyte esterase detection by dipstick NEGATIVE NEGATIVE 03/13/2018 [facility] Urine nitrite detection Urine nitrite detection NEGATIVE NEGATIVE 03/13/2018 [facility] Urine pH measurement by automated test strip Urine pH measurement by automated test strip 7 5 - 7 03/13/2018 [facility] Urine protein measurement by test strip (mass/volume) Urine protein measurement by test strip (mass/volume) NEGATIVE NEGATIVE 03/13/2018 [facility] Urine total bilirubin measurement (mass/volume) Urine total bilirubin measurement (mass/volume) NEGATIVE NEGATIVE 03/13/2018 [facility] Urine urobilinogen measurement by test strip (mass/volume) Urine urobilinogen measurement by test strip (mass/volume) 0.2 0.2 - 1 03/13/2018 [facility] Automated blood basophil count (count/volume) Automated blood basophil count (count/volume) 0.0 0.0 - 0.1 03/13/2018 [facility] Automated blood basophil count as percentage of total leukocytes Automated blood basophil count as percentage of total leukocytes 0.1 0.0 - 1.0 03/13/2018 [facility] Automated blood eosinophil count Automated blood eosinophil count 0.0 0.0 - 0.4 03/13/2018 [facility] Automated blood eosinophil count as percentage of total leukocytes Automated blood eosinophil count as percentage of total leukocytes 0.1 0.0 - 6.0 03/13/2018 [facility] Automated blood hematocrit (volume fraction) Automated blood hematocrit (volume fraction) 42.1 38.2 - 49.6 03/13/2018 [facility] Automated blood lymphocyte count as percentage ot total leukocytes Automated blood lymphocyte count as percentage ot total leukocytes 19.0 18.0 - 39.1 03/13/2018 [facility] Automated blood monocyte count as percentage of total leukocytes Automated blood monocyte count as percentage of total leukocytes 5.9 4.4 - 11.3 03/13/2018 [facility] Automated blood neutrophil count Automated blood neutrophil count 5.3 2.1 - 6.9 03/13/2018 [facility] Automated blood platelet count (count/volume) Automated blood platelet count (count/volume) 153 140 - 360 03/13/2018 [facility] Automated blood segmented neutrophil count as percentage of total leukocytes Automated blood segmented neutrophil count as percentage of total leukocytes 74.5 38.7 - 80.0 03/13/2018 [facility] Automated erythrocyte mean corpuscular hemoglobin (mass per erythrocyte) Automated erythrocyte mean corpuscular hemoglobin (mass per erythrocyte) 33.0 28 - 32 03/13/2018 [facility] Automated erythrocyte mean corpuscular hemoglobin concentration measurement (mass/volume) Automated erythrocyte mean corpuscular hemoglobin concentration measurement (mass/volume) 34.4 31 - 35 03/13/2018 [facility] Automated erythrocyte mean corpuscular volume Automated erythrocyte mean corpuscular volume 95.9 81 - 99 03/13/2018 [facility] Blood erythrocytes automated count (number/volume) Blood erythrocytes automated count (number/volume) 4.39 4.3 - 5.7 03/13/2018 [facility] Blood hemoglobin measurement (moles/volume) Blood hemoglobin measurement (moles/volume) 14.5 14.0 - 18.0 03/13/2018 [facility] Blood leukocytes automated count (number/volume) Blood leukocytes automated count (number/volume) 7.12 4.8 - 10.8 03/13/2018 [facility] Blood lymphocytes count (number/volume) Blood lymphocytes count (number/volume) 1.4 1.0 - 3.2 03/13/2018 [facility] Blood monocytes automated count (number/volume) Blood monocytes automated count (number/volume) 0.4 0.2 - 0.8 03/13/2018 [facility] Estimated glomerular filtration rate (GFR) determination Estimated glomerular filtration rate (GFR) determination null 60 03/13/2018 [facility] Glucose measurement Glucose measurement 104 74 - 118 03/13/2018 [facility] Plasma globulin measurement (mass/volume) Plasma globulin measurement (mass/volume) 3.1 2.3 - 3.5 03/13/2018 [facility] Serum or plasma alanine aminotransferase measurement (enzymatic activity/volume) Serum or plasma alanine aminotransferase measurement (enzymatic activity/volume) 13 0 - 55 03/13/2018 [facility] Serum or plasma albumin measurement (mass/volume) Serum or plasma albumin measurement (mass/volume) 3.5 3.5 - 5.0 03/13/2018 [facility] Serum or plasma albumin/globulin mass ratio Serum or plasma albumin/globulin mass ratio 1.1 0.8 - 2.0 03/13/2018 [facility] Serum or plasma alkaline phosphatase measurement (enzymatic activity/volume) Serum or plasma alkaline phosphatase measurement (enzymatic activity/volume) 55 40 - 150 03/13/2018 [facility] Serum or plasma amylase measurement (enzymatic activity/volume) Serum or plasma amylase measurement (enzymatic activity/volume) 73 25 - 125 03/13/2018 [facility] Serum or plasma anion gap Serum or plasma anion gap 14.8 8 - 16 03/13/2018 [facility] Serum or plasma calcium measurement (mass/volume) Serum or plasma calcium measurement (mass/volume) 9.3 8.4 - 10.2 03/13/2018 [facility] Serum or plasma carbon dioxide, total measurement (moles/volume) Serum or plasma carbon dioxide, total measurement (moles/volume) 24 22 - 29 03/13/2018 [facility] Serum or plasma chloride measurement (moles/volume) Serum or plasma chloride measurement (moles/volume) 105 98 - 107 03/13/2018 [facility] Serum or plasma creatine kinase MB measurement (mass/volume) Serum or plasma creatine kinase MB measurement (mass/volume) 0.60 0 - 5.0 03/13/2018 [facility] Serum or plasma creatine kinase measurement (enzymatic activity/volume) Serum or plasma creatine kinase measurement (enzymatic activity/volume) 39 30 - 200 03/13/2018 [facility] Serum or plasma creatinine measurement (mass/volume) Serum or plasma creatinine measurement (mass/volume) 0.82 0.72 - 1.25 03/13/2018 [facility] Serum or plasma lipase measurement (enzymatic activity/volume) Serum or plasma lipase measurement (enzymatic activity/volume) 31 8 - 78 03/13/2018 [facility] Serum or plasma potassium measurement (moles/volume) Serum or plasma potassium measurement (moles/volume) 3.8 3.5 - 5.1 03/13/2018 [facility] Serum or plasma protein measurement (mass/volume) Serum or plasma protein measurement (mass/volume) 6.6 6.5 - 8.1 03/13/2018 [facility] Serum or plasma sodium measurement (moles/volume) Serum or plasma sodium measurement (moles/volume) 140 136 - 145 03/13/2018 [facility] Serum or plasma total bilirubin measurement (mass/volume) Serum or plasma total bilirubin measurement (mass/volume) 0.9 0.2 - 1.2 03/13/2018 [facility] Serum or plasma urea nitrogen measurement (mass/volume) Serum or plasma urea nitrogen measurement (mass/volume) 13 7 - 26 03/13/2018 [facility] Serum or plasma urea nitrogen/creatinine mass ratio Serum or plasma urea nitrogen/creatinine mass ratio 16 6 - 25 03/13/2018 [facility] Troponin I measurement by highly sensitive enzyme immunoassay Troponin I measurement by highly sensitive enzyme immunoassay null 0 - 0.300 03/13/2018 [facility] Red Cell Distribution Width 12.9 11.7 - 14.4 03/13/2018 [facility] IM GRANULOCYTES % 0.4 0.0 - 1.0 03/13/2018 [facility] Absolute Immature Granulocyte (auto 0.03 0 - 0.1 03/13/2018 [facility] Aspartate Amino Transf (AST/SGOT) 13 5 - 34 03/13/2018 [facility] URINE AND STOOL UA Color Ltyellow 02/24/2018 [facility] URINE AND STOOL UA Urobilinogen <=1.0 mg/dL 0.1 - 1.0 02/24/2018 [facility] URINE AND STOOL UA Turbidity Clear (02/24/18 4:31 AM) Clear 02/24/2018 [facility] URINE AND STOOL UA Ketones Negative mg/dL Negative mg/dL 02/24/2018 [facility] URINE AND STOOL UA Spec Grav 1.018 <=1.030 02/24/2018 [facility] URINE AND STOOL UA RBC 1 /HPF 0 - 2 02/24/2018 [facility] URINE AND STOOL UA Glucose Negative mg/dL Negative mg/dL 02/24/2018 [facility] URINE AND STOOL UA WBC null 0 - 5 02/24/2018 [facility] URINE AND STOOL UA Protein Negative mg/dL Negative mg/dL 02/24/2018 [facility] URINE AND STOOL UA pH 5.0 5.0 - 8.0 02/24/2018 [facility] URINE AND STOOL UA Bili Negative *NA* (02/24/18 4:31 AM) Negative 02/24/2018 [facility] URINE AND STOOL UA Leuk Est Negative (02/24/18 4:31 AM) Negative 02/24/2018 [facility] URINE AND STOOL UA Blood Negative (02/24/18 4:31 AM) Negative 02/24/2018 [facility] URINE AND STOOL UA Nitrite Negative (02/24/18 4:31 AM) Negative 02/24/2018 [facility] URINE AND STOOL UA Sq Epi None Seen 02/24/2018 [facility] CARDIAC ENZYMES Troponin-I null 0.00 - 0.40 02/24/2018 [facility] CARDIAC ENZYMES Total CK 61 unit/L 12 - 191 02/24/2018 [facility] CHEM PANEL eGFR 87 mL/min/1.73m2 02/24/2018 Result Comment: The eGFR is calculated using the CKD-EPI formula. In most young, healthy individuals the eGFR will be >90 mL/min/1.73m2. The eGFR declines with age. An eGFR of 60-89 may be normal in some populations, particularly the elderly, for whom the CKD-EPI formula has not been extensively validated. Use of the eGFR is not recommended in the following populations: Individuals with unstable creatinine concentrations, including patients and those with serious co-morbid conditions. Patients with extremes in muscle mass or diet. The data above are obtained from the National Kidney Disease Education Program (NKDEP) which additionally recommends that when the eGFR is used in patients with extremes of body mass index for purposes of drug dosing, the eGFR should be multiplied by the estimated BMI. [facility] CHEM PANEL Chloride Lvl 105 meq/L 95 - 109 02/24/2018 [facility] CHEM PANEL CO2 30 meq/L 24 - 32 02/24/2018 [facility] CHEM PANEL Calcium Lvl 8.9 mg/dL 8.5 - 10.5 02/24/2018 [facility] CHEM PANEL Total Protein 7.0 g/dL 6.4 - 8.4 02/24/2018 [facility] CHEM PANEL Albumin Lvl 3.6 g/dL 3.5 - 5.0 02/24/2018 [facility] CHEM PANEL ALT 20 unit/L 0 - 65 02/24/2018 [facility] CHEM PANEL Bili Total 0.5 mg/dL 0.2 - 1.3 02/24/2018 [facility] CHEM PANEL AST 13 unit/L 0 - 37 02/24/2018 [facility] CHEM PANEL Alk Phos 70 unit/L 39 - 136 02/24/2018 [facility] CHEM PANEL Potassium Lvl 4.1 meq/L 3.5 - 5.1 02/24/2018 [facility] CHEM PANEL Glucose Lvl 113 mg/dL 70 - 99 02/24/2018 [facility] CHEM PANEL Creatinine Lvl 0.96 mg/dL 0.50 - 1.40 02/24/2018 [facility] CHEM PANEL Sodium Lvl 139 meq/L 135 - 145 02/24/2018 [facility] CHEM PANEL BUN 18 mg/dL 7 - 22 02/24/2018 [facility] CHEM PANEL Globulin 3.4 g/dL 2.7 - 4.2 02/24/2018 [facility] CHEM PANEL A/G Ratio 1.1 0.7 - 1.6 02/24/2018 [facility] CHEM PANEL AGAP 8.1 meq/L 10.0 - 20.0 02/24/2018 [facility] CHEM PANEL B/C Ratio 19 6 - 25 02/24/2018 [facility] CHEM PANEL Lipase Lvl 179 unit/L 73 - 393 02/24/2018 [facility] HEMATOLOGY Monocytes 5.4 % 2.0 - 12.0 02/24/2018 [facility] HEMATOLOGY Lymphocytes 14.9 % 20.0 - 40.0 02/24/2018 [facility] HEMATOLOGY Neutrophils # 6.6 K/CMM 1.5 - 8.1 02/24/2018 [facility] Basophils 0.4 % 0.0 - 1.0 02/24/2018 [facility] HEMATOLOGY Eosinophils 0.4 % 0.0 - 4.0 02/24/2018 [facility] HEMATOLOGY Segs 78.9 % 45.0 - 75.0 02/24/2018 [facility] Monocytes # 0.4 K/CMM 0.0 - 0.8 02/24/2018 [facility] Lymphocytes # 1.2 K/CMM 1.0 - 5.5 02/24/2018 [facility] Platelet 138 K/CMM 133 - 450 02/24/2018 [facility] RDW 14.2 % 11.5 - 14.5 02/24/2018 [facility] MPV 8.6 fL 7.4 - 10.4 02/24/2018 [facility] MCV 97.1 fL 80.0 - 94.0 02/24/2018 [facility] Hct 43.3 % 42.0 - 54.0 02/24/2018 [facility] Hgb 15.2 g/dL 14.0 - 18.0 02/24/2018 [facility] MCHC 35.1 g/dL 32.0 - 36.0 02/24/2018 [facility] MCH 34.1 pg 27.0 - 31.0 02/24/2018 [facility] RBC 4.46 M/CMM 4.70 - 6.10 02/24/2018 [facility] WBC 8.3 K/CMM 3.7 - 10.4 02/24/2018 [facility] ED Abdomen/Pelvis IV contrast only CT ED Abdomen/Pelvis IV contrast only CT CT ABDOMEN AND PELVIS WITH CONTRAST DATED 02/24/2018. CLINICAL INDICATION: Abdominal pain. Abdominal distention. Pain with urination. COMPARISON: CT abdomen dated 10/02/2017. TECHNIQUE: A CT of the abdomen and pelvis was performed using helical images from the thoracic outlet through the pubic symphysis after the intravenous administration of 100cc Omnipaque 300. The study was ordered without bowel contrast. Sagittal and coronal reconstructions were performed. CT imaging performed at this location utilizes radiation dose optimization techniques which include one or more of the following: -Automated exposure control -Adjustment of the mA and/or kV according to patient size -Use of iterative reconstruction technique CT Radiation Dose DLP 1167 mGy-cm FINDINGS: SOLID ORGANS: No acute CT abnormalities of the liver, spleen, pancreas, adrenal glands or kidneys are detected. There is no CT evidence of acute renal collecting system obstruction or calcified renal collecting system stone. BILIARY: The gallbladder is normally distended. No significant biliary ductal dilatation is detected. BOWEL: Bowel assessment is limited by the absence of bowel contrast. No small bowel dilatation is present to suggest obstruction. The appendix is identified and is not acutely inflamed. There is no evidence of diverticular disease or inflammatory colonic wall thickening. PERITONEUM: No free intraperitoneal air or significant free intraperitoneal fluid. RETROPERITONEUM: The abdominal aorta is normal in caliber. No retroperitoneal mass or adenopathy. PELVIS: The bladder has an unremarkable appearance. LOWER CHEST: The lung bases appear clear of acute disease. ADDITIONAL COMMENTS: None. IMPRESSION: 1. No acute CT abnormalities of the abdomen or pelvis are detected. SL:131 02/24/2018 - - Read by: Desmond Irvin MD Dictated Date/time: 02/24/18 01:42 Electronically Signed by: Desmond Irvin MD 02/24/18 01:48 FINAL REPORT [facility] URINE DRUG SCREEN Amphetamine Negative NEG 02/22/2018 Calibrated Standard: D-Methamphetamine Positive if urine level >vi=1410 ng/mL Test performed on [id number] using EMIT Immunoassay [facility] URINE DRUG SCREEN Barbiturate Negative NEG 02/22/2018 Calibrated Standard: Secobarbital Positive if urine level is >ls=049 ng/mL Test performed on [id number] using EMIT Immunoassay [facility] URINE DRUG SCREEN Benzodiazepine Negative NEG 02/22/2018 Calibrated Standard: Lormethazepam Positive if urine level is >qs=836 ng/mL Test performed on [id number] using EMIT Immunoassay [facility] URINE DRUG SCREEN Cannabinoid Negative NEG 02/22/2018 Calibrated Standard: 11 nor-delta(9)-THC carboxylic a Positive if urine level >or=50 Test performed on [id number] using EMIT Immunoassay [facility] URINE DRUG SCREEN Cocaine Negative NEG 02/22/2018 Calibrated Standard: Benzoylecgonine Positive if urine level >tt=170 Test performed on [id number] using EMIT Immunoassay [facility] URINE DRUG SCREEN Opiate, Ur Negative NEG 02/22/2018 Calibrated Standard: Morphine Positive if urine level >gq=946 Test performed on [id number] using EMIT Immunoassay [facility] URINE DRUG SCREEN PCP Negative NEG 02/22/2018 Calibrated Standard: Phencyclidine Positive if urine level >or=25 Test performed on [id number] using EMIT Immunoassay Urine Toxicology Screen results are to be used only for Medical purposes. [facility] HEMATOLOGY Monocytes 6.7 % 2.0 - 12.0 02/13/2018 [facility] HEMATOLOGY Eosinophils 0.5 % 0.0 - 4.0 02/13/2018 [facility] HEMATOLOGY Basophils 0.5 % 0.0 - 1.0 02/13/2018 [facility] HEMATOLOGY Neutrophils # 5.6 K/CMM 1.5 - 8.1 02/13/2018 [facility] HEMATOLOGY Lymphocytes # 1.3 K/CMM 1.0 - 5.5 02/13/2018 [facility] HEMATOLOGY Monocytes # 0.5 K/CMM 0.0 - 0.8 02/13/2018 [facility] HEMATOLOGY Segs 74.8 % 45.0 - 75.0 02/13/2018 [facility] HEMATOLOGY Lymphocytes 17.5 % 20.0 - 40.0 02/13/2018 [facility] HEMATOLOGY MPV 8.5 fL 7.4 - 10.4 02/13/2018 [facility] HEMATOLOGY RDW 14.0 % 11.5 - 14.5 02/13/2018 [facility] HEMATOLOGY Platelet 160 K/CMM 133 - 450 02/13/2018 [facility] HEMATOLOGY Hct 44.1 % 42.0 - 54.0 02/13/2018 [facility] HEMATOLOGY Hgb 15.4 g/dL 14.0 - 18.0 02/13/2018 [facility] HEMATOLOGY RBC 4.63 M/CMM 4.70 - 6.10 02/13/2018 [facility] HEMATOLOGY WBC 7.5 K/CMM 3.7 - 10.4 02/13/2018 [facility] HEMATOLOGY MCHC 34.9 g/dL 32.0 - 36.0 02/13/2018 [facility] HEMATOLOGY MCH 33.2 pg 27.0 - 31.0 02/13/2018 [facility] HEMATOLOGY MCV 95.3 fL 80.0 - 94.0 02/13/2018 [facility] URINE AND STOOL UA Leuk Est Negative (02/13/18 1:24 AM) Negative 02/13/2018 [facility] URINE AND STOOL UA Nitrite Negative (02/13/18 1:24 AM) Negative 02/13/2018 [facility] URINE AND STOOL UA Blood Negative (02/13/18 1:24 AM) Negative 02/13/2018 [facility] URINE AND STOOL UA Urobilinogen 0.2 EU/dL 0.1 - 1.0 02/13/2018 [facility] URINE AND STOOL UA Bili Negative *NA* (02/13/18 1:24 AM) Negative 02/13/2018 [facility] URINE AND STOOL UA Protein Negative mg/dL Negative mg/dL 02/13/2018 [facility] URINE AND STOOL UA Ketones Negative mg/dL Negative mg/dL 02/13/2018 [facility] URINE AND STOOL UA Glucose Negative mg/dL Negative mg/dL 02/13/2018 [facility] URINE AND STOOL UA pH 6.5 5.0 - 8.0 02/13/2018 [facility] URINE AND STOOL UA Spec Grav 1.010 <=1.030 02/13/2018 [facility] URINE AND STOOL UA Turbidity Clear (02/13/18 1:24 AM) Clear 02/13/2018 [facility] URINE AND STOOL UA Color Yellow *NA* (02/13/18 1:24 AM) Yellow 02/13/2018 [facility] URINE AND STOOL UA Bacteria Rare 02/13/2018 [facility] URINE AND STOOL UA WBC 0-2 /HPF None Seen /HPF 02/13/2018 [facility] URINE AND STOOL UA Mucus Rare /LPF None Seen /LPF 02/13/2018 [facility] URINE AND STOOL UA RBC None Seen (02/13/18 1:24 AM) 0 - 2 02/13/2018 [facility] URINE AND STOOL Micro? Performed (02/13/18 1:24 AM) 02/13/2018 [facility] URINE AND STOOL UA Sq Epi Rare /LPF Few /LPF 02/13/2018 [facility] Chest 1view DX Chest 1view DX EXAM: XR CHEST 1 VIEW DATE: 02/13/2018 at 0308 hours INDICATION: - SOB, h/o COPD COMPARISON: Chest radiograph 01/08/2018 TECHNIQUE: AP upright chest. FINDINGS: Lines, tubes and hardware: None. Lungs and pleura: The lungs are clear. No pleural effusion or pneumothorax. Heart and mediastinum: The heart size is normal for technique. The thoracic aorta is mildly tortuous. Pulmonary vascularity is normal. Bones: No acute abnormality. IMPRESSION: 1. No acute abnormality. [place] SECTION: ER 02/13/2018 - - This report was dictated by a Ore Washer/Fellow. I have personally reviewed the images as well as the Resident's interpretation and agree with the findings. Read by: Stefan Greene MD Resident: Stefan Greene MD Dictated Date/time: 02/13/18 03:27 Electronically Signed by: Abel Lopez MD 02/13/18 04:35 FINAL REPORT [facility] IMMUNOLOGY CDC HIV 4th GEN Negative *NA* (02/12/18 7:18 PM) Negative 02/13/2018 [facility] CHEM PANEL Lipase Lvl 131 unit/L 73 - 393 02/12/2018 [facility] CHEM PANEL eGFR 87 mL/min/1.73m2 02/12/2018 Result Comment: The eGFR is calculated using the CKD-EPI formula. In most young, healthy individuals the eGFR will be >90 mL/min/1.73m2. The eGFR declines with age. An eGFR of 60-89 may be normal in some populations, particularly the elderly, for whom the CKD-EPI formula has not been extensively validated. Use of the eGFR is not recommended in the following populations: Individuals with unstable creatinine concentrations, including patients and those with serious co-morbid conditions. Patients with extremes in muscle mass or diet. The data above are obtained from the National Kidney Disease Education Program (NKDEP) which additionally recommends that when the eGFR is used in patients with extremes of body mass index for purposes of drug dosing, the eGFR should be multiplied by the estimated BMI. [facility] CHEM PANEL Glucose Lvl 94 mg/dL 70 - 99 02/12/2018 [facility] CHEM PANEL Sodium Lvl 139 meq/L 135 - 145 02/12/2018 [facility] CHEM PANEL BUN 11 mg/dL 7 - 22 02/12/2018 [facility] CHEM PANEL Potassium Lvl 4.9 meq/L 3.5 - 5.1 02/12/2018 [facility] CHEM PANEL Creatinine Lvl 0.96 mg/dL 0.50 - 1.40 02/12/2018 [facility] CHEM PANEL Chloride Lvl 104 meq/L 95 - 109 02/12/2018 [facility] CHEM PANEL CO2 29 meq/L 24 - 32 02/12/2018 [facility] CHEM PANEL AGAP 10.9 meq/L 10.0 - 20.0 02/12/2018 [facility] CHEM PANEL Calcium Lvl 9.5 mg/dL 8.5 - 10.5 02/12/2018 [facility] CHEM PANEL Bili Total 0.9 mg/dL 0.2 - 1.3 02/12/2018 [facility] CHEM PANEL Albumin Lvl 3.6 g/dL 3.5 - 5.0 02/12/2018 [facility] CHEM PANEL Alk Phos 60 unit/L 39 - 136 02/12/2018 [facility] CHEM PANEL Bili Indirect 0.8 mg/dL 0.0 - 1.0 02/12/2018 [facility] CHEM PANEL ALT 19 unit/L 0 - 65 02/12/2018 [facility] CHEM PANEL Globulin 3.5 g/dL 2.7 - 4.2 02/12/2018 [facility] CHEM PANEL AST 17 unit/L 0 - 37 02/12/2018 [facility] CHEM PANEL A/G Ratio 1.0 0.7 - 1.6 02/12/2018 [facility] CHEM PANEL Bili Direct 0.1 mg/dL 0.0 - 0.3 02/12/2018 [facility] CHEM PANEL Total Protein 7.1 g/dL 6.4 - 8.4 02/12/2018 [facility] HEMATOLOGY MCV 95.8 fL 80.0 - 94.0 02/12/2018 [facility] HEMATOLOGY WBC 7.0 K/CMM 3.7 - 10.4 02/12/2018 [facility] HEMATOLOGY Hgb 14.9 g/dL 14.0 - 18.0 02/12/2018 [facility] HEMATOLOGY Hct 42.4 % 42.0 - 54.0 02/12/2018 [facility] HEMATOLOGY MCH 33.6 pg 27.0 - 31.0 02/12/2018 [facility] HEMATOLOGY RDW 13.8 % 11.5 - 14.5 02/12/2018 [facility] HEMATOLOGY MCHC 35.1 g/dL 32.0 - 36.0 02/12/2018 [facility] HEMATOLOGY RBC 4.43 M/CMM 4.70 - 6.10 02/12/2018 [facility] HEMATOLOGY MPV 8.3 fL 7.4 - 10.4 02/12/2018 [facility] HEMATOLOGY Platelet 147 K/CMM 133 - 450 02/12/2018 [facility] UA CHEMISTRIES Color Colorless 01/31/2018 [facility] UA CHEMISTRIES Clarity Clear 01/31/2018 [facility] UA CHEMISTRIES Spec [place] 1.005 1.001 - 1.035 01/31/2018 [facility] UA CHEMISTRIES pH 6.0 5 - 8 01/31/2018 [facility] UA CHEMISTRIES Protein Negative NEG 01/31/2018 [facility] UA CHEMISTRIES Glucose Negative NEG 01/31/2018 [facility] UA CHEMISTRIES Ketone Negative NEG 01/31/2018 [facility] UA CHEMISTRIES Bilirubin Negative NEG 01/31/2018 [facility] UA CHEMISTRIES Nitrate Negative NEG 01/31/2018 [facility] UA CHEMISTRIES Urobilinogen <1.0 0.2 - 1 01/31/2018 [facility] UA CHEMISTRIES Leukocyte Negative NEG 01/31/2018 [facility] UA CHEMISTRIES Blood Negative NEG 01/31/2018 [facility] VBG POC pH, David POC 7.36 7.33 - 7.43 01/31/2018 Physician Notified [facility] VBG POC pCO2, David POC 46.0 38.0 - 50.0 01/31/2018 [facility] VBG POC pO2, David POC 29 50 - 75 01/31/2018 [facility] VBG POC Base Excess, David POC 0 mmol/L 01/31/2018 [facility]BG POC HCO3, David POC 25.8 mmol/L 22 - 26 01/31/2018 [facility] VBG POC % Sat, David POC 53 % 60 - 85 01/31/2018 [facility]BG POC Lactic Acid, David POC 0.63 mmol/L 0.4 - 2 01/31/2018 [facility] VBG POC Sample Type David 01/31/2018 [facility] VBG POC TCO2, DAVID POC 27 mmol/L 21 - 32 01/31/2018 [facility] POC Lab Interpretation Abnormal 01/31/[address] [facility] [address] ABDOMEN AND PELVIS CONTRAST IMPRESSION: No acute abdominal or pelvic abnormalities. Dictated By: Lyubov Martines MD, 01/31/2018 5:15 AM I have reviewed the study and agree with the findings in this report. Signed By: Sonia Contreras MD, 01/31/2018 5:17 AM EXAM: CT Abdomen and Pelvis WITH contrast INDICATION: abdominal pain COMPARISON: None available TECHNIQUE: Abdomen and pelvis were scanned utilizing a multidetector helical scanner from the lung base to the pubic symphysis after administration of IV contrast. Coronal and sagittal reformations were obtained. Routine protocol was performed. Scan was performed when during portal venous phase. IV CONTRAST: 150 mL of Omnipaque 300 ORAL CONTRAST: Water COMPLICATIONS: None RADIATION DOSE: Total DLP: 918 mGy*cm Estimated effective dose: (DLP x 0.015 x size factor) mSv CTDIvol has been reviewed. It is below the limits set by the Radiation Protocol Committee (RPC). FINDINGS: LINES and TUBES: None. LOWER THORAX:Unremarkable HEPATOBILIARY:No focal hepatic lesions. No biliary ductal dilation. GALLBLADDER: No radio-opaque stones or sludge. SPLEEN: No splenomegaly. PANCREAS: No focal masses or ductal dilatation. ADRENALS: No adrenal nodules KIDNEYS/URETERS: Kidneys enhance symmetrically.No hydronephrosis. No cystic or solid mass lesions.No stones. GI TRACT: No abnormal distention, wall thickening, or evidence of bowel obstruction. Appendix is normal. PELVIC ORGANS/BLADDER: Unremarkable. LYMPH NODES: No lymphadenopathy. VESSELS: Patent.Penile calcifications. PERITONEUM / RETROPERITONEUM: No free air or fluid. BONES: Mild lumbar degenerative changes. SOFT TISSUES: Unremarkable. Interface, Rad/Mammog In - 01/31/2018 5:22 AM CDT EXAM: CT Abdomen and Pelvis WITH contrast INDICATION: abdominal pain COMPARISON: None available TECHNIQUE: Abdomen and pelvis were scanned utilizing a multidetector helical scanner from the lung base to the pubic symphysis after administration of IV contrast. Coronal and sagittal reformations were obtained. Routine protocol was performed. Scan was performed when during portal venous phase. IV CONTRAST: 150 mL of Omnipaque 300 ORAL CONTRAST: Water COMPLICATIONS: None RADIATION DOSE: Total DLP: 918 mGy*cm Estimated effective dose: (DLP x 0.015 x size factor) mSv CTDIvol has been reviewed. It is below the limits set by the Radiation Protocol Committee (RPC). FINDINGS: LINES and TUBES: None. LOWER THORAX: Unremarkable HEPATOBILIARY: No focal hepatic lesions. No biliary ductal dilation. GALLBLADDER: No radio-opaque stones or sludge. SPLEEN: No splenomegaly. PANCREAS: No focal masses or ductal dilatation. ADRENALS: No adrenal nodules KIDNEYS/URETERS: Kidneys enhance symmetrically. No hydronephrosis. No cystic or solid mass lesions. No stones. GI TRACT: No abnormal distention, wall thickening, or evidence of bowel obstruction. Appendix is normal. PELVIC ORGANS/BLADDER: Unremarkable. LYMPH NODES: No lymphadenopathy. VESSELS: Patent. Penile calcifications. PERITONEUM / RETROPERITONEUM: No free air or fluid. BONES: Mild lumbar degenerative changes. SOFT TISSUES: Unremarkable. IMPRESSION IMPRESSION: No acute abdominal or pelvic abnormalities. Dictated By: Lyubov Martines MD, 01/31/2018 5:15 AM I have reviewed the study and agree with the findings in this report. Signed By: Sonia Contreras MD, 01/31/2018 5:17 AM 01/31/2018 [facility] HIV-1/HIV-2 ROUTINE SCREENING HIV-1/HIV-2 Negative NEG 01/30/2018 [facility] LIPASE Lipase 14 U/L 11 - 82 01/30/2018 [facility] LIVER PROFILE T Protein 6.0 g/dL 6 - 8.3 01/30/2018 [facility] LIVER PROFILE Albumin 3.7 g/dL 4.2 - 5.5 01/30/2018 [facility] LIVER PROFILE T Bilirubin 0.8 mg/dL 0.2 - 1.2 01/30/2018 [facility] LIVER PROFILE Alk Phos 67 U/L 34 - 104 01/30/2018 [facility] LIVER PROFILE AST 15 U/L 13 - 39 01/30/2018 [facility] LIVER PROFILE ALT 13 U/L 7 - 52 01/30/2018 [facility] LIVER PROFILE D Bilirubin 0.2 mg/dL 0 - 0.2 01/30/2018 [facility] LIVER PROFILE Lab Interpretation Abnormal 01/30/2018 [facility] CBC/DIFF WBC 8.4 K/uL 4.5 - 12 01/30/2018 [facility] CBC/DIFF RBC 4.15 4.60 - 6.20 01/30/2018 [facility] CBC/DIFF Hemoglobin 13.5 g/dL 14 - 18 01/30/2018 [facility] CBC/DIFF Hematocrit 39.1 % 40 - 54 01/30/2018 [facility] CBC/DIFF MCV 94 fL 82 - 92 01/30/2018 [facility] CBC/DIFF MCH 32.5 pg 27 - 31 01/30/2018 [facility] CBC/DIFF MCHC 34.5 g/dL 32 - 36 01/30/2018 [facility] CBC/DIFF RDW 45.1 fL 35.1 - 43.9 01/30/2018 [facility] CBC/DIFF Platelet 138 K/uL 150 - 400 01/30/2018 [facility] CBC/DIFF Mean Platelet Volume 10.6 fL 9.4 - 12.4 01/30/2018 [facility] CBC/DIFF Percent NRBC 0.0 01/30/2018 [facility] CBC/DIFF Absolute NRBC 0.00 01/30/2018 [facility] CBC/DIFF Neutrophil 82.3 % 34 - 67.9 01/30/2018 [facility] CBC/DIFF Lymphocyte 11.7 % 21.8 - 50 01/30/2018 [facility] CBC/DIFF Monocyte 5.5 % 5.3 - 12 01/30/2018 [facility] CBC/DIFF Eosinophil 0.2 % 0.8 - 5 01/30/2018 [facility] CBC/DIFF Basophil 0.1 % 0.2 - 1.2 01/30/2018 [facility] CBC/DIFF Pct Immat Gran 0.2 0.0 - 0.5 01/30/2018 [facility] CBC/DIFF Neutrophil, Abs 6.89 K/uL 1.78 - 5.36 01/30/2018 [facility] CBC/DIFF Lymphocyte, Abs 0.98 K/uL 1.32 - 3.57 01/30/2018 [facility] CBC/DIFF Monocyte, Abs 0.46 K/uL 0.3 - 0.82 01/30/2018 [facility] CBC/DIFF Eosinophil, Abs 0.02 K/uL 0.04 - 0.54 01/30/2018 [facility] CBC/DIFF Basophil, Abs 0.01 K/uL 0.01 - 0.08 01/30/2018 [facility] CBC/DIFF Absol Immat Gran 0.02 K/uL 0 - 0.03 01/30/2018 [facility] CBC/DIFF Lab Interpretation Abnormal 01/30/2018 [facility] TROPONIN I POC Troponin POC 0.00 ng/mL 0 - 0.08 01/30/2018 Physician Notified [facility] POC CO2 POC 26 mmol/L 21 - 32 01/30/2018 Physician Notified [facility] POC Chloride POC 104 mmol/L 98 - 107 01/30/2018 [facility] POC Potassium POC 3.6 mmol/L 3.5 - 5.1 01/30/2018 [facility] POC Sodium POC 143 mmol/L 136 - 145 01/30/2018 [facility] POC Glucose POC 93 mg/dL 74 - 106 01/30/2018 [facility] POC Urea Nitrogen POC 18 mg/dL 7 - 18 01/30/2018 [facility] POC Creatinine POC 1.2 mg/dL 0.6 - 1.3 01/30/2018 [facility] POC Calcium Ionized POC 1.22 mmol/L 1.15 - 1.29 01/30/2018 [facility] POC Hemoglobin POC 13.9 g/dL 14 - 18 01/30/2018 [facility] POC Hematocrit POC 41.0 % 40 - 54 01/30/2018 [facility] POC GFR, Estimated >60 mL/min/1.73 m2 01/30/2018 [facility] POC GFR, Estim, Afr-Am >60 mL/min/1.73 m2 01/30/2018 [facility] POC Lab Interpretation Abnormal 01/30/2018 [facility] 12 LEAD EKG 12 LEAD EKG FOR [facility] Test Date:2018-01-30 Pat Name: KALEN LEDEZMA Department: : Gender: MTechnician: [id number] :1960 Requested By: Order Number:Koki GILLILAND: Carmen Joseph Measurements IntervalsAxis Rate: 60 P:-11 W[place]: 165QRS:-21 QRSD: 94 T:43 QT: 368 QTc:370 Interpretive Statements SINUS RHYTHM BORDERLINE LEFT AXIS DEVIATION LOW QRS VOLTAGE IN PRECORDIAL LEADS PATTERN CONSISTENT WITH PULMONARY DISEASE INCOMPLETE RIGHT BUNDLE BRANCH BLOCK Electronically Signed On 01-30-18 16:17:20 CDT by Carmen Joseph 01/30/2018 [facility] CARDIAC ENZYMES Troponin-I null 0.00 - 0.40 01/16/2018 [facility] CHEM PANEL Lactic Acid Lvl 1.0 mMol/L 0.5 - 2.2 01/16/2018 [facility] CHEM PANEL Bili Direct 0.1 mg/dL 0.0 - 0.3 01/16/2018 [facility] CHEM PANEL Bili Total 0.7 mg/dL 0.2 - 1.3 01/16/2018 [facility] CHEM PANEL Bili Indirect 0.6 mg/dL 0.0 - 1.0 01/16/2018 [facility] CHEM PANEL ALT 21 unit/L 0 - 65 01/16/2018 [facility] CHEM PANEL Alk Phos 76 unit/L 39 - 136 01/16/2018 [facility] CHEM PANEL Albumin Lvl 3.8 g/dL 3.5 - 5.0 01/16/2018 [facility] CHEM PANEL AST 20 unit/L 0 - 37 01/16/2018 [facility] CHEM PANEL Total Protein 7.5 g/dL 6.4 - 8.4 01/16/2018 [facility] CHEM PANEL A/G Ratio 1.0 0.7 - 1.6 01/16/2018 [facility] CHEM PANEL Globulin 3.7 g/dL 2.7 - 4.2 01/16/2018 [facility] ELECTROLYTES AGAP 13.2 meq/L 10.0 - 20.0 01/16/2018 [facility] ELECTROLYTES eGFR 87 mL/min/1.73m2 01/16/2018 Result Comment: The eGFR is calculated using the CKD-EPI formula. In most young, healthy individuals the eGFR will be >90 mL/min/1.73m2. The eGFR declines with age. An eGFR of 60-89 may be normal in some populations, particularly the elderly, for whom the CKD-EPI formula has not been extensively validated. Use of the eGFR is not recommended in the following populations: Individuals with unstable creatinine concentrations, including patients and those with serious co-morbid conditions. Patients with extremes in muscle mass or diet. The data above are obtained from the National Kidney Disease Education Program (NKDEP) which additionally recommends that when the eGFR is used in patients with extremes of body mass index for purposes of drug dosing, the eGFR should be multiplied by the estimated BMI. [facility] ELECTROLYTES Calcium Lvl 9.4 mg/dL 8.5 - 10.5 01/16/2018 [facility] ELECTROLYTES CO2 28 meq/L 24 - 32 01/16/2018 [facility] ELECTROLYTES Chloride Lvl 103 meq/L 95 - 109 01/16/2018 [facility] ELECTROLYTES Potassium Lvl 4.2 meq/L 3.5 - 5.1 01/16/2018 [facility] ELECTROLYTES Sodium Lvl 140 meq/L 135 - 145 01/16/2018 [facility] ELECTROLYTES Creatinine Lvl 0.97 mg/dL 0.50 - 1.40 01/16/2018 [facility] ELECTROLYTES BUN 10 mg/dL 7 - 22 01/16/2018 [facility] ELECTROLYTES Glucose Lvl 106 mg/dL 70 - 99 01/16/2018 [facility] HEMATOLOGY Eosinophils 0.2 % 0.0 - 4.0 01/16/2018 [facility] HEMATOLOGY Monocytes 5.4 % 2.0 - 12.0 01/16/2018 [facility] HEMATOLOGY Lymphocytes 15.2 % 20.0 - 40.0 01/16/2018 [facility] HEMATOLOGY Segs 79.0 % 45.0 - 75.0 01/16/2018 [facility] HEMATOLOGY Monocytes # 0.4 K/CMM 0.0 - 0.8 01/16/2018 [facility] HEMATOLOGY Lymphocytes # 1.2 K/CMM 1.0 - 5.5 01/16/2018 [facility] HEMATOLOGY Neutrophils # 6.1 K/CMM 1.5 - 8.1 01/16/2018 [facility] HEMATOLOGY Basophils 0.2 % 0.0 - 1.0 01/16/2018 [facility] HEMATOLOGY MCV 95.1 fL 80.0 - 94.0 01/16/2018 [facility] HEMATOLOGY RDW 14.0 % 11.5 - 14.5 01/16/2018 [facility] HEMATOLOGY Platelet 166 K/CMM 133 - 450 01/16/2018 [facility] HEMATOLOGY MCHC 34.6 g/dL 32.0 - 36.0 01/16/2018 [facility] HEMATOLOGY Hct 43.0 % 42.0 - 54.0 01/16/2018 [facility] HEMATOLOGY MPV 8.9 fL 7.4 - 10.4 01/16/2018 [facility] HEMATOLOGY MCH 33.0 pg 27.0 - 31.0 01/16/2018 [facility] HEMATOLOGY WBC 7.7 K/CMM 3.7 - 10.4 01/16/2018 [facility] HEMATOLOGY Hgb 14.9 g/dL 14.0 - 18.0 01/16/2018 [facility] HEMATOLOGY RBC 4.52 M/CMM 4.70 - 6.10 01/16/2018 [facility] URINE AND STOOL UA RBC None Seen (01/08/18 9:29 PM) 0 - 2 01/09/2018 [facility] URINE AND STOOL UA Sq Epi Occasional /LPF Few /LPF 01/09/2018 [facility] URINE AND STOOL UA WBC 1-3 01/09/2018 [facility] URINE AND STOOL UA Bacteria None Seen (01/08/18 9:29 PM) None Seen 01/09/2018 [facility] URINE AND STOOL UA Mucus Many /LPF None Seen /LPF 01/09/2018 [facility] URINE AND STOOL UA Glucose Negative (01/08/18 9:29 PM) Negative 01/09/2018 [facility] URINE AND STOOL UA Ketones 15 mg/dL Negative mg/dL 01/09/2018 [facility] URINE AND STOOL UA Blood Negative (01/08/18 9:29 PM) Negative 01/09/2018 [facility] URINE AND STOOL UA Bili Small *ABN* (01/08/18 9:29 PM) Negative 01/09/2018 [facility] URINE AND STOOL UA Urobilinogen 0.2 EU/dL 0.1 - 1.0 01/09/2018 [facility] URINE AND STOOL UA Leuk Est Negative (01/08/18 9:29 PM) Negative 01/09/2018 [facility] URINE AND STOOL UA Nitrite Negative (01/08/18 9:29 PM) Negative 01/09/2018 [facility] URINE AND STOOL UA Color Yellow *NA* (01/08/18 9:29 PM) Yellow 01/09/2018 [facility] URINE AND STOOL UA Spec Grav 1.025 <=1.030 01/09/2018 [facility] URINE AND STOOL UA Turbidity Clear (01/08/18 9:29 PM) Clear 01/09/2018 [facility] URINE AND STOOL UA Protein Negative (01/08/18 9:29 PM) Negative 01/09/2018 [facility] URINE AND STOOL UA pH 6.0 5.0 - 8.0 01/09/2018 [facility] CARDIAC ENZYMES Troponin-I null 0.00 - 0.40 01/08/2018 [facility] CHEM PANEL Lipase Lvl 115 unit/L 73 - 393 01/08/2018 [facility] CHEM PANEL Lactic Acid Lvl 1.2 mMol/L 0.5 - 2.2 01/08/2018 [facility] CHEM PANEL Bili Total 1.2 mg/dL 0.2 - 1.3 01/08/2018 [facility] CHEM PANEL Bili Direct 0.2 mg/dL 0.0 - 0.3 01/08/2018 [facility] CHEM PANEL Alk Phos 67 unit/L 39 - 136 01/08/2018 [facility] CHEM PANEL Albumin Lvl 3.5 g/dL 3.5 - 5.0 01/08/2018 [facility] CHEM PANEL Total Protein 7.1 g/dL 6.4 - 8.4 01/08/2018 [facility] CHEM PANEL AST 21 unit/L 0 - 37 01/08/2018 [facility] CHEM PANEL ALT 18 unit/L 0 - 65 01/08/2018 [facility] CHEM PANEL Bili Indirect 1.0 mg/dL 0.0 - 1.0 01/08/2018 [facility] CHEM PANEL A/G Ratio 1.0 0.7 - 1.6 01/08/2018 [facility] CHEM PANEL Globulin 3.6 g/dL 2.7 - 4.2 01/08/2018 [facility] ELECTROLYTES AGAP 13.3 meq/L 10.0 - 20.0 01/08/2018 [facility] ELECTROLYTES eGFR 95 mL/min/1.73m2 01/08/2018 Result Comment: The eGFR is calculated using the CKD-EPI formula. In most young, healthy individuals the eGFR will be >90 mL/min/1.73m2. The eGFR declines with age. An eGFR of 60-89 may be normal in some populations, particularly the elderly, for whom the CKD-EPI formula has not been extensively validated. Use of the eGFR is not recommended in the following populations: Individuals with unstable creatinine concentrations, including patients and those with serious co-morbid conditions. Patients with extremes in muscle mass or diet. The data above are obtained from the National Kidney Disease Education Program (NKDEP) which additionally recommends that when the eGFR is used in patients with extremes of body mass index for purposes of drug dosing, the eGFR should be multiplied by the estimated BMI. [facility] ELECTROLYTES Calcium Lvl 9.3 mg/dL 8.5 - 10.5 01/08/2018 [facility] ELECTROLYTES CO2 27 meq/L 24 - 32 01/08/2018 [facility] ELECTROLYTES Chloride Lvl 104 meq/L 95 - 109 01/08/2018 [facility] ELECTROLYTES Potassium Lvl 4.3 meq/L 3.5 - 5.1 01/08/2018 [facility] ELECTROLYTES BUN 14 mg/dL 7 - 22 01/08/2018 [facility] ELECTROLYTES Creatinine Lvl 0.90 mg/dL 0.50 - 1.40 01/08/2018 [facility] ELECTROLYTES Sodium Lvl 140 meq/L 135 - 145 01/08/2018 [facility] ELECTROLYTES Glucose Lvl 92 mg/dL 70 - 99 01/08/2018 [facility] HEMATOLOGY Eosinophils # 0.1 K/CMM 0.0 - 0.5 01/08/2018 [facility] HEMATOLOGY Segs 77.7 % 45.0 - 75.0 01/08/2018 [facility] HEMATOLOGY Segs-Bands # 6.1 K/CMM 1.5 - 8.1 01/08/2018 [facility] HEMATOLOGY Basophils 0.5 % 0.0 - 1.0 01/08/2018 [facility] HEMATOLOGY Eosinophils 1.0 % 0.0 - 4.0 01/08/2018 [facility] HEMATOLOGY Lymphocytes # 1.2 K/CMM 1.0 - 5.5 01/08/2018 [facility] HEMATOLOGY Monocytes # 0.4 K/CMM 0.0 - 0.8 01/08/2018 [facility] HEMATOLOGY Monocytes 5.3 % 2.0 - 12.0 01/08/2018 [facility] HEMATOLOGY Lymphocytes 15.5 % 20.0 - 40.0 01/08/2018 [facility] HEMATOLOGY MCHC 34.8 g/dL 32.0 - 36.0 01/08/2018 [facility] HEMATOLOGY MCH 32.6 pg 27.0 - 31.0 01/08/2018 [facility] HEMATOLOGY MPV 8.9 fL 7.4 - 10.4 01/08/2018 [facility] HEMATOLOGY Platelet 163 K/CMM 133 - 450 01/08/2018 [facility] HEMATOLOGY RDW 13.7 % 11.5 - 14.5 01/08/2018 [facility] HEMATOLOGY Hgb 14.2 g/dL 14.0 - 18.0 01/08/2018 [facility] HEMATOLOGY RBC 4.35 M/CMM 4.70 - 6.10 01/08/2018 [facility] HEMATOLOGY WBC 7.9 K/CMM 3.7 - 10.4 01/08/2018 [facility] HEMATOLOGY MCV 93.7 fL 80.0 - 94.0 01/08/2018 [facility] HEMATOLOGY Hct 40.8 % 42.0 - 54.0 01/08/2018 [facility] Chest 1view DX Chest 1view DX EXAM: XR CHEST 1 VIEW DATE: 01/08/2018 5:59 PM CDT INDICATION: Shortness of breath COMPARISON: Chest radiograph 01/01/2018 TECHNIQUE: AP chest. [place] SECTION: ER FINDINGS: Lines, tubes and hardware: None. Lungs and pleura: The lungs are clear. No pleural effusion or pneumothorax. Heart and mediastinum: The heart size is normal for technique. The thoracic aorta is tortuous. Pulmonary vascularity is normal. Bones: No acute abnormality. IMPRESSION: No acute abnormality. 01/08/2018 - - This report was dictated by a Ore Washer/Fellow. I have personally reviewed the images as well as the Resident's interpretation and agree with the findings. Read by: Víctor Emmanuel MD Resident: Víctor Emmanuel MD Dictated Date/time: 01/08/18 18:18 Electronically Signed by: Shan Baugh MD 01/08/18 18:21 FINAL REPORT [facility] URINE AND STOOL UA Turbidity Slight Cloudy (01/02/18 12:44 AM) Clear 01/02/2018 [facility] URINE AND STOOL UA Color Yellow *NA* (01/02/18 12:44 AM) Yellow 01/02/2018 [facility] URINE AND STOOL UA Spec Grav 1.010 <=1.030 01/02/2018 [facility] URINE AND STOOL UA Leuk Est Negative (01/02/18 12:44 AM) Negative 01/02/2018 [facility] URINE AND STOOL UA pH 8.0 5.0 - 8.0 01/02/2018 [facility] URINE AND STOOL UA Protein Negative mg/dL Negative mg/dL 01/02/2018 [facility] URINE AND STOOL UA Glucose Negative mg/dL Negative mg/dL 01/02/2018 [facility] URINE AND STOOL UA Ketones 15 mg/dL Negative mg/dL 01/02/2018 [facility] URINE AND STOOL UA Bili Negative *NA* (01/02/18 12:44 AM) Negative 01/02/2018 [facility] URINE AND STOOL UA Urobilinogen 0.2 EU/dL 0.1 - 1.0 01/02/2018 [facility] URINE AND STOOL UA Blood Negative (01/02/18 12:44 AM) Negative 01/02/2018 [facility] URINE AND STOOL UA Nitrite Negative (01/02/18 12:44 AM) Negative 01/02/2018 [facility] URINE AND STOOL UA Bacteria Few /HPF None Seen /HPF 01/02/2018 [facility] URINE AND STOOL UA RBC 0-2 /HPF 0 - 2 01/02/2018 [facility] URINE AND STOOL UA WBC None Seen (01/02/18 12:44 AM) None Seen 01/02/2018 [facility] URINE AND STOOL UA Sq Epi None Seen (01/02/18 12:44 AM) Few 01/02/2018 [facility] CHEM PANEL Lipase Lvl 109 unit/L 73 - 393 01/02/2018 [facility] CHEM PANEL A/G Ratio 1.0 0.7 - 1.6 01/02/2018 [facility] CHEM PANEL Albumin Lvl 3.5 g/dL 3.5 - 5.0 01/02/2018 [facility] CHEM PANEL Total Protein 7.1 g/dL 6.4 - 8.4 01/02/2018 [facility] CHEM PANEL Globulin 3.6 g/dL 2.7 - 4.2 01/02/2018 [facility] CHEM PANEL Bili Indirect 0.5 mg/dL 0.0 - 1.0 01/02/2018 [facility] CHEM PANEL Bili Direct 0.2 mg/dL 0.0 - 0.3 01/02/2018 [facility] CHEM PANEL AST 15 unit/L 0 - 37 01/02/2018 [facility] CHEM PANEL Alk Phos 80 unit/L 39 - 136 01/02/2018 [facility] CHEM PANEL ALT 21 unit/L 0 - 65 01/02/2018 [facility] CHEM PANEL Bili Total 0.7 mg/dL 0.2 - 1.3 01/02/2018 [facility] ELECTROLYTES AGAP 12.5 meq/L 10.0 - 20.0 01/02/2018 [facility] ELECTROLYTES eGFR 84 mL/min/1.73m2 01/02/2018 Result Comment: The eGFR is calculated using the CKD-EPI formula. In most young, healthy individuals the eGFR will be >90 mL/min/1.73m2. The eGFR declines with age. An eGFR of 60-89 may be normal in some populations, particularly the elderly, for whom the CKD-EPI formula has not been extensively validated. Use of the eGFR is not recommended in the following populations: Individuals with unstable creatinine concentrations, including patients and those with serious co-morbid conditions. Patients with extremes in muscle mass or diet. The data above are obtained from the National Kidney Disease Education Program (NKDEP) which additionally recommends that when the eGFR is used in patients with extremes of body mass index for purposes of drug dosing, the eGFR should be multiplied by the estimated BMI. [facility] ELECTROLYTES Calcium Lvl 9.2 mg/dL 8.5 - 10.5 01/02/2018 [facility] ELECTROLYTES Glucose Lvl 90 mg/dL 70 - 99 01/02/2018 [facility] ELECTROLYTES BUN 13 mg/dL 7 - 22 01/02/2018 [facility] ELECTROLYTES Sodium Lvl 140 meq/L 135 - 145 01/02/2018 [facility] ELECTROLYTES Creatinine Lvl 1.00 mg/dL 0.50 - 1.40 01/02/2018 [facility] ELECTROLYTES Potassium Lvl 3.5 meq/L 3.5 - 5.1 01/02/2018 [facility] ELECTROLYTES Chloride Lvl 105 meq/L 95 - 109 01/02/2018 [facility] ELECTROLYTES CO2 26 meq/L 24 - 32 01/02/2018 [facility] HEMATOLOGY MCH 32.1 pg 27.0 - 31.0 01/02/2018 [facility] HEMATOLOGY MCHC 34.0 g/dL 32.0 - 36.0 01/02/2018 [facility] HEMATOLOGY Hct 42.1 % 42.0 - 54.0 01/02/2018 [facility] HEMATOLOGY MCV 94.4 fL 80.0 - 94.0 01/02/2018 [facility] HEMATOLOGY RDW 13.8 % 11.5 - 14.5 01/02/2018 [facility] HEMATOLOGY Platelet 141 K/CMM 133 - 450 01/02/2018 [facility] HEMATOLOGY MPV 9.1 fL 7.4 - 10.4 01/02/2018 [facility] HEMATOLOGY Hgb 14.3 g/dL 14.0 - 18.0 01/02/2018 [facility] HEMATOLOGY WBC 9.2 K/CMM 3.7 - 10.4 01/02/2018 [facility] HEMATOLOGY RBC 4.46 M/CMM 4.70 - 6.10 01/02/2018 [facility] HEMATOLOGY Monocytes # 0.6 K/CMM 0.0 - 0.8 01/02/2018 [facility] HEMATOLOGY Lymphocytes # 1.3 K/CMM 1.0 - 5.5 01/02/2018 [facility] HEMATOLOGY Eosinophils 0.4 % 0.0 - 4.0 01/02/2018 [facility] HEMATOLOGY Segs 78.4 % 45.0 - 75.0 01/02/2018 [facility] HEMATOLOGY Monocytes 6.7 % 2.0 - 12.0 01/02/2018 [facility] HEMATOLOGY Lymphocytes 14.1 % 20.0 - 40.0 01/02/2018 [facility] HEMATOLOGY Segs-Bands # 7.2 K/CMM 1.5 - 8.1 01/02/2018 [facility] HEMATOLOGY Basophils 0.4 % 0.0 - 1.0 01/02/2018 [facility] CARDIAC ENZYMES Troponin-I null 0.00 - 0.40 01/02/2018 [facility] Chest 2 views DX Chest 2 views DX EXAM: XR CHEST 2 VIEWS DATE: 01/01/2018 11:38 PM CDT INDICATION: -Shortness of breath [place] SECTION: ER COMPARISON: Chest radiograph on 08/17/[address] chest, abdomen, and pelvis on 10/02/2017. TECHNIQUE: PA and lateral chest radiographs. FINDINGS: Lines, tubes and hardware: None. Lungs and pleura: The lungs are well-inflated and clear. No pleural effusion or pneumothorax. Heart and mediastinum: The heart size is normal. There is a mildly tortuous thoracic aorta with calcification at the arch. Pulmonary vascularity is normal. Bones: No acute abnormality. IMPRESSION: 1. No acute abnormality. 01/01/2018 - - This report was dictated by a Ore Washer/Fellow. I have personally reviewed the images as well as the Resident's interpretation and agree with the findings. Read by: Alfonso Kyle MD Resident: Alfonso Kyle MD Dictated Date/time: 01/01/18 23:42 Electronically Signed by: Abel Lopez MD 01/02/18 00:06 FINAL REPORT [facility] Activated partial thromboplastin time (aPTT) in platelet poor plasma bycoagulation assay Activated partial thromboplastin time (aPTT) in platelet poor plasma bycoagulation assay 30.5 23.8 - 35.5 11/30/2017 [facility] INR in Platelet poor plasma by Coagulation assay INR in Platelet poor plasma by Coagulation assay 1.19 11/30/2017 [facility] Prothrombin time (PT) in platelet poor plasma by coagulation assay Prothrombin time (PT) in platelet poor plasma by coagulation assay 14.2 11.9 - 14.5 11/30/2017 [facility] B-Type Natriuretic Peptide 32.3 0 - 100 11/30/2017 [facility] Chest/Abd/Pelvis w/wo IV contrast CT Chest/Abd/Pelvis w/wo IV contrast CT CLINICAL HISTORY: R06.02 Shortness of breath;R10.11 Right upper quadrant pain - R06.02 Shortness of breath;R10.11 Right upper quadrant pain AGE: 57 years GENDER: Male TECHNIQUE: Pre and postcontrast CT of the chest, abdomen and pelvis was performed. Multiplanar reconstructions were reviewed. A total of 100 cc of Omnipaque 300 was administered intravenously. AEC, mA /kV adjustment by patient size, and/or iterative reconstructive technique were used, per departmental dose-optimization program. Creatinine: 0.9 DLP: 2937 mGy-cm COMPARISON: None available FINDINGS: CHEST: There is no pericardial effusion. Mild to moderate atherosclerotic calcification of the thoracic aorta and coronary arteries. The heart size is within normal limits. No significant mediastinal or hilar adenopathy is seen. There are no focal airspace or interstitial opacities. No pleural effusions. No suspicious pulmonary nodules or masses are identified. The visualized osseous structures are unremarkable. ABDOMEN AND PELVIS: The liver, spleen, pancreas and adrenal glands are unremarkable. The gallbladder is present. There is no evidence of cholelithiasis, gallbladder wall thickening or pericholecystic fluid.. There is no CT evidence of hydronephrosis. There is no hydroureter. No nephrolithiasis. No significant retroperitoneal adenopathy is seen. There is no significant atherosclerotic calcification of the abdominal aorta. There is no evidence of abdominal aortic aneurysm. The large bowel is unremarkable. . The small bowel is normal in caliber without evidence of obstruction. The appendix is visualized without evidence of surrounding inflammatory change, dilatation or wall thickening. There is no significant free fluid in the abdomen or pelvis. The bladder is partially collapsed. No significant pelvic adenopathy is seen. Degenerative changes in the lumbar spine, mild. IMPRESSION: No CT evidence of primary or metastatic disease in the chest, abdomen or pelvis. Mild to moderate atherosclerotic calcification of the thoracic aorta and coronary arteries. 10/02/2017 - - Read by: Jasen Campa MD Dictated Date/time: 10/03/17 09:28 Electronically Signed by: Jasen Campa MD 10/03/17 09:39 FINAL REPORT [facility] CARDI[facility]ZYM[facility] Troponin-I null 0.00 - 0.40 08/17/2017 [facility] URINE AND STOOL UA Sq Epi None Seen (08/17/17 2:53 PM) Few 08/17/2017 [facility] URINE AND STOOL UA Leuk Est Negative (08/17/17 2:53 PM) Negative 08/17/2017 [facility] URINE AND STOOL UA Bili Small *ABN* (08/17/17 2:53 PM) Negative 08/17/2017 [facility] URINE AND STOOL UA Nitrite Negative (08/17/17 2:53 PM) Negative 08/17/2017 [facility] URINE AND STOOL UA Blood Negative (08/17/17 2:53 PM) Negative 08/17/2017 [facility] URINE AND STOOL UA Urobilinogen 2.0 EU/dL 0.1 - 1.0 08/17/2017 [facility] URINE AND STOOL UA Protein Trace *ABN* (08/17/17 2:53 PM) Negative 08/17/2017 [facility] URINE AND STOOL UA Color Yellow *NA* (08/17/17 2:53 PM) Yellow 08/17/2017 [facility] URINE AND STOOL UA Spec Grav 1.025 <=1.030 08/17/2017 [facility] URINE AND STOOL UA pH 6.0 5.0 - 8.0 08/17/2017 [facility] URINE AND STOOL UA Glucose Negative (08/17/17 2:53 PM) Negative 08/17/2017 [facility] URINE AND STOOL UA Turbidity Clear (08/17/17 2:53 PM) Clear 08/17/2017 [facility] URINE AND STOOL UA Ketones 15 mg/dL Negative mg/dL 08/17/2017 [facility] CARDIAC ENZYMES Troponin-I null 0.00 - 0.40 08/17/2017 [facility] CARDIAC ENZYMES CK MB null 0.5 - 3.6 08/17/2017 [facility] CARDIAC ENZYMES Total CK 55 unit/L 12 - 191 08/17/2017 [facility] CARDIAC ENZYMES CK-MB INDEX null 0.0 - 2.5 08/17/2017 [facility] CARDIAC ENZYMES proBNP 85 pg/mL 0 - 125 08/17/2017 [facility] CHEM PANEL Phosphorus 3.6 mg/dL 2.5 - 4.5 08/17/2017 [facility] CHEM PANEL Magnesium Lvl 1.9 mg/dL 1.8 - 2.4 08/17/2017 [facility] CHEM PANEL Lactic Acid Lvl 0.8 mMol/L 0.5 - 2.2 08/17/2017 [facility] CHEM PANEL eGFR 96 mL/min/1.73m2 08/17/2017 Result Comment: The eGFR is calculated using the CKD-EPI formula. In most young, healthy individuals the eGFR will be >90 mL/min/1.73m2. The eGFR declines with age. An eGFR of 60-89 may be normal in some populations, particularly the elderly, for whom the CKD-EPI formula has not been extensively validated. Use of the eGFR is not recommended in the following populations: Individuals with unstable creatinine concentrations, including patients and those with serious co-morbid conditions. Patients with extremes in muscle mass or diet. The data above are obtained from the National Kidney Disease Education Program (NKDEP) which additionally recommends that when the eGFR is used in patients with extremes of body mass index for purposes of drug dosing, the eGFR should be multiplied by the estimated BMI. [facility] CHEM PANEL Globulin 3.7 g/dL 2.7 - 4.2 08/17/2017 [facility] CHEM PANEL B/C Ratio 10 6 - 25 08/17/2017 [facility] CHEM PANEL A/G Ratio 0.9 0.7 - 1.6 08/17/2017 [facility] CHEM PANEL AGAP 9.4 meq/L 10.0 - 20.0 08/17/2017 [facility] CHEM PANEL Alk Phos 65 unit/L 39 - 136 08/17/2017 [facility] CHEM PANEL ASPARTATE TRANSAMINASE 20 unit/L 0 - 37 08/17/2017 [facility] CHEM PANEL Bili Total 0.9 mg/dL 0.2 - 1.3 08/17/2017 [facility] CHEM PANEL Albumin Lvl 3.4 g/dL 3.5 - 5.0 08/17/2017 [facility] CHEM PANEL ALANINE AMINOTRANSFERASE 20 unit/L 0 - 65 08/17/2017 [facility] CHEM PANEL Glucose Lvl 83 mg/dL 70 - 99 08/17/2017 [facility] CHEM PANEL Total Protein 7.1 g/dL 6.4 - 8.4 08/17/2017 [facility] CHEM PANEL Creatinine Lvl 0.89 mg/dL 0.50 - 1.40 08/17/2017 [facility] CHEM PANEL BUN 9 mg/dL 7 - 22 08/17/2017 [facility] CHEM PANEL Calcium Lvl 8.9 mg/dL 8.5 - 10.5 08/17/2017 [facility] CHEM PANEL CO2 31 meq/L 24 - 32 08/17/2017 [facility] CHEM PANEL Potassium Lvl 3.4 meq/L 3.5 - 5.1 08/17/2017 [facility] CHEM PANEL Chloride Lvl 102 meq/L 95 - 109 08/17/2017 [facility] CHEM PANEL Sodium Lvl 139 meq/L 135 - 145 08/17/2017 [facility] HEMATOLOGY Eosinophils 1.3 % 0.0 - 4.0 08/17/2017 [facility] HEMATOLOGY Segs 73.5 % 45.0 - 75.0 08/17/2017 [facility] HEMATOLOGY Monocytes 10.8 % 2.0 - 12.0 08/17/2017 [facility] HEMATOLOGY Lymphocytes 14.0 % 20.0 - 40.0 08/17/2017 [facility] HEMATOLOGY Monocytes # 0.6 K/CMM 0.0 - 0.8 08/17/2017 [facility] HEMATOLOGY Eosinophils # 0.1 K/CMM 0.0 - 0.5 08/17/2017 [facility] Segs-Bands # 4.0 K/CMM 1.5 - 8.1 08/17/2017 [facility] Lymphocytes # 0.8 K/CMM 1.0 - 5.5 08/17/2017 [facility] Basophils 0.4 % 0.0 - 1.0 08/17/2017 [facility] PROTIME 14.5 s 12.0 - 14.7 08/17/2017 [facility] INR 1.13 0.85 - 1.17 08/17/2017 [facility] Platelet 142 K/CMM 133 - 450 08/17/2017 [facility] WBC X 10x3 5.4 K/CMM 3.7 - 10.4 08/17/2017 [facility] RBC X 10x6 4.42 M/CMM 4.70 - 6.10 08/17/2017 [facility] Hgb 14.2 g/dL 14.0 - 18.0 08/17/2017 [facility] Hct 41.0 % 42.0 - 54.0 08/17/2017 [facility] MCH 32.0 pg 27.0 - 31.0 08/17/2017 [facility] MCV 92.7 fL 80.0 - 94.0 08/17/2017 [facility] RDW 13.7 % 11.5 - 14.5 08/17/2017 [facility] MCHC 34.6 g/dL 32.0 - 36.0 08/17/2017 [facility] MPV 9.1 fL 7.4 - 10.4 08/17/2017 [facility] RAPID Grp A Strep Scr Negative (08/17/17 2:31 PM) Negative 08/17/2017 [facility] VIRAL - SEROLOGY Influ B Negative (08/17/17 2:31 PM) Negative 08/17/2017 [facility] VIRAL - SEROLOGY Influ A Negative (08/17/17 2:31 PM) Negative 08/17/2017 [facility] Chest 1view DX Chest 1view DX Clinical Indication: - cough. Shortness of breath for days. Comparison: July 10, 2017. FINDINGS: AP 1 view chest radiograph was performed. LUNGS: Small lung volumes with mild accentuation of the pulmonary vascularity. No confluent interstitial or airspace opacities. No pleural effusions or pneumothorax. HEART AND MEDIASTINUM: The heart size is normal. There is a mildly tortuous thoracic aorta. The trachea is midline. OSSEOUS STRUCTURES: No acute abnormality seen. IMPRESSION: 1. Small lung volumes with mild accentuation of the pulmonary vascularity. No confluent infiltrates in the lungs. SL: [id number] 08/17/2017 - - Read by: Butch Morris MD Dictated Date/time: 08/17/17 14:51 Electronically Signed by: Butch Morris MD 08/17/17 14:52 FINAL REPORT [facility] Abdomen RUQ US Abdomen RUQ US Study: Abdomen RUQ US Clinical Indication: R10.11 - Right upper quad pain, pt. on oxygen Comparison: Right upper quadrant ultrasound from 04/19/2017. CT abdomen and pelvis from 02/12/2017. TECHNIQUE: Grayscale and limited color sonographic evaluation of the right upper quadrant was performed with standard technique. FINDINGS: The liver is echogenic measuring 12.3 cm. The pancreas is normal in the visualized portions. The visualized abdominal aorta and IVC are normal in appearance. The gallbladder is without stones or sludge. Single punctate focus of comet tail artifact arising from the gallbladder fundus is seen, compatible with adenomyomatosis.There is no biliary duct dilatation. Common bile duct measures 3.4 mm. Sonographic Zazueta's sign is negative. The right kidney is normal in size and echotexture without stones or hydronephrosis. The right kidney measures 10.8 x 5 x 5.2 cm. The main portal vein is patent and with hepatopedal flow. No free fluid is noted. IMPRESSION: 1. Hepatic steatosis. 2. Gallbladder adenomyomatosis. SL: [id number] 08/17/2017 - - Read by: Wai Kaur MD Dictated Date/time: 08/17/17 14:18 Electronically Signed by: Wai Kaur MD 08/17/17 14:20 FINAL REPORT [facility] CARDIAC ENZYMES Troponin-I null 0.00 - 0.40 07/10/2017 [facility] CHEM PANEL eGFR 87 mL/min/1.73m2 07/10/2017 Result Comment: The eGFR is calculated using the CKD-EPI formula. In most young, healthy individuals the eGFR will be >90 mL/min/1.73m2. The eGFR declines with age. An eGFR of 60-89 may be normal in some populations, particularly the elderly, for whom the CKD-EPI formula has not been extensively validated. Use of the eGFR is not recommended in the following populations: Individuals with unstable creatinine concentrations, including patients and those with serious co-morbid conditions. Patients with extremes in muscle mass or diet. The data above are obtained from the National Kidney Disease Education Program (NKDEP) which additionally recommends that when the eGFR is used in patients with extremes of body mass index for purposes of drug dosing, the eGFR should be multiplied by the estimated BMI. [facility] CHEM PANEL Potassium Lvl 3.4 meq/L 3.5 - 5.1 07/10/2017 [facility] CHEM PANEL Creatinine Lvl 0.97 mg/dL 0.50 - 1.40 07/10/2017 [facility] CHEM PANEL Sodium Lvl 140 meq/L 135 - 145 07/10/2017 [facility] CHEM PANEL BUN 11 mg/dL 7 - 22 07/10/2017 [facility] CHEM PANEL Glucose Lvl 97 mg/dL 70 - 99 07/10/2017 [facility] CHEM PANEL CO2 30 meq/L 24 - 32 07/10/2017 [facility] CHEM PANEL Calcium Lvl 9.1 mg/dL 8.5 - 10.5 07/10/2017 [facility] CHEM PANEL Chloride Lvl 103 meq/L 95 - 109 07/10/2017 [facility] CHEM PANEL AGAP 10.4 meq/L 10.0 - 20.0 07/10/2017 [facility] HEMATOLOGY Basophils 0.4 % 0.0 - 1.0 07/10/2017 [facility] HEMATOLOGY Eosinophils 0.3 % 0.0 - 4.0 07/10/2017 [facility] HEMATOLOGY Lymphocytes # 1.1 K/CMM 1.0 - 5.5 07/10/2017 [facility] HEMATOLOGY Monocytes # 0.5 K/CMM 0.0 - 0.8 07/10/2017 [facility] HEMATOLOGY Segs-Bands # 6.6 K/CMM 1.5 - 8.1 07/10/2017 [facility] HEMATOLOGY Lymphocytes 13.0 % 20.0 - 40.0 07/10/2017 [facility] HEMATOLOGY Segs 80.3 % 45.0 - 75.0 07/10/2017 [facility] HEMATOLOGY Monocytes 6.0 % 2.0 - 12.0 07/10/2017 [facility] HEMATOLOGY RDW 14.2 % 11.5 - 14.5 07/10/2017 [facility] HEMATOLOGY MCHC 34.7 g/dL 32.0 - 36.0 07/10/2017 [facility] HEMATOLOGY MPV 8.2 fL 7.4 - 10.4 07/10/2017 [facility] HEMATOLOGY Platelet 171 K/CMM 133 - 450 07/10/2017 [facility] HEMATOLOGY MCV 93.7 fL 80.0 - 94.0 07/10/2017 [facility] HEMATOLOGY MCH 32.5 pg 27.0 - 31.0 07/10/2017 [facility] HEMATOLOGY RBC 4.78 M/CMM 4.70 - 6.10 07/10/2017 [facility] HEMATOLOGY Hct 44.8 % 42.0 - 54.0 07/10/2017 [facility] HEMATOLOGY Hgb 15.5 g/dL 14.0 - 18.0 07/10/2017 [facility] HEMATOLOGY WBC 8.2 K/CMM 3.7 - 10.4 07/10/2017 [facility] Chest 1view DX Chest 1view DX EXAM: XR CHEST 1 VIEW DATE: 07/10/2017 1:43 PM CARDIOLOGY RN INDICATION: - SOB COMPARISON: Chest March 10, 2017. [place] SECTION: ER TECHNIQUE: AP chest FINDINGS: Lines, tubes and hardware: None. Lungs and pleura: No pulmonary or pleural based abnormality is identified. Pulmonary vascularity is normal. Heart and mediastinum: The heart size is normal for technique. The mediastinal contours are normal. Bones: No acute bony abnormality is identified. IMPRESSION: No acute cardiopulmonary abnormality. 07/10/2017 - - This report was dictated by a [employer] Washer/Fellow. I have personally reviewed the images as well as the Resident's interpretation and agree with the findings. Read by: Jonathan Ravi MD Resident: Jonathan Ravi MD Dictated Date/time: 07/10/17 14:32 Electronically Signed by: Elba Vazquez MD 07/10/17 14:35 FINAL REPORT [facility] IMMUNOLOGY CDC HIV 4th GEN Negative *NA* (06/16/17 8:09 PM) Negative 06/17/2017 [facility] CHEM PANEL eGFR 72 mL/min/1.73m2 06/17/2017 Result Comment: The eGFR is calculated using the CKD-EPI formula. In most young, healthy individuals the eGFR will be >90 mL/min/1.73m2. The eGFR declines with age. An eGFR of 60-89 may be normal in some populations, particularly the elderly, for whom the CKD-EPI formula has not been extensively validated. Use of the eGFR is not recommended in the following populations: Individuals with unstable creatinine concentrations, including patients and those with serious co-morbid conditions. Patients with extremes in muscle mass or diet. The data above are obtained from the National Kidney Disease Education Program (NKDEP) which additionally recommends that when the eGFR is used in patients with extremes of body mass index for purposes of drug dosing, the eGFR should be multiplied by the estimated BMI. [facility] CHEM PANEL Potassium Lvl 4.3 meq/L 3.5 - 5.1 06/17/2017 [facility] CHEM PANEL Chloride Lvl 101 meq/L 95 - 109 06/17/2017 [facility] CHEM PANEL CO2 29 meq/L 24 - 32 06/17/2017 [facility] CHEM PANEL Calcium Lvl 9.2 mg/dL 8.5 - 10.5 06/17/2017 [facility] CHEM PANEL Glucose Lvl 100 mg/dL 70 - 99 06/17/2017 [facility] CHEM PANEL BUN 11 mg/dL 7 - 22 06/17/2017 [facility] CHEM PANEL Creatinine Lvl 1.13 mg/dL 0.50 - 1.40 06/17/2017 [facility] CHEM PANEL Sodium Lvl 139 meq/L 135 - 145 06/17/2017 [facility] CHEM PANEL AGAP 13.3 meq/L 10.0 - 20.0 06/17/2017 [facility] HEMATOLOGY MPV 8.8 fL 7.4 - 10.4 06/17/2017 [facility] HEMATOLOGY Platelet 143 K/CMM 133 - 450 06/17/2017 [facility] HEMATOLOGY MCHC 34.1 g/dL 32.0 - 36.0 06/17/2017 [facility] HEMATOLOGY RDW 13.4 % 11.5 - 14.5 06/17/2017 [facility] HEMATOLOGY MCV 92.4 fL 80.0 - 94.0 06/17/2017 [facility] HEMATOLOGY MCH 31.5 pg 27.0 - 31.0 06/17/2017 [facility] HEMATOLOGY WBC 8.7 K/CMM 3.7 - 10.4 06/17/2017 [facility] HEMATOLOGY RBC 4.91 M/CMM 4.70 - 6.10 06/17/2017 [facility] HEMATOLOGY Hct 45.4 % 42.0 - 54.0 06/17/2017 [facility] HEMATOLOGY Hgb 15.5 g/dL 14.0 - 18.0 06/17/2017 [facility] HEMATOLOGY Basophils # 0.1 K/CMM 0.0 - 0.2 06/17/2017 [facility] HEMATOLOGY Lymphocytes # 1.9 K/CMM 1.0 - 5.5 06/17/2017 [facility] HEMATOLOGY Monocytes # 0.6 K/CMM 0.0 - 0.8 06/17/2017 [facility] HEMATOLOGY Segs-Bands # 6.0 K/CMM 1.5 - 8.1 06/17/2017 [facility] HEMATOLOGY Basophils 0.8 % 0.0 - 1.0 06/17/2017 [facility] HEMATOLOGY Lymphocytes 21.7 % 20.0 - 40.0 06/17/2017 [facility] HEMATOLOGY Monocytes 7.5 % 2.0 - 12.0 06/17/2017 [facility] HEMATOLOGY Eosinophils 0.3 % 0.0 - 4.0 06/17/2017 [facility] HEMATOLOGY Segs 69.7 % 45.0 - 75.0 06/17/2017 [facility] THROAT CULTURE Spec Description Throat swab 05/07/2017 [facility] THROAT CULTURE Order Comments None 05/07/2017 [facility] THROAT CULTURE Culture Normal izabela, no Beta Streptococcus isolated 05/07/2017 [facility] THROAT CULTURE Report Status Final 05/10/2017 05/07/2017 [facility] HEMOGLOBIN A1C Hemoglobin A1c 5.1 % 4.3 - 6.1 05/07/2017 [facility] HEMOGLOBIN A1C Est Average Gluc 99.7 mg/dL 05/07/2017 [facility] GROUP A STREP SCREEN Group A Strep Negative NEG 05/07/2017 [facility] RAPID INFLUENZA SCREEN Spec Description Nasopharyngeal swab 05/07/2017 [facility] RAPID INFLUENZA SCREEN Order Comments None 05/07/2017 [facility] RAPID INFLUENZA SCREEN Direct Exam Negative for Influenza A virus Negative for Influenza B virus 05/07/2017 [facility] RAPID INFLUENZA SCREEN Report Status Final 05/07/2017 05/07/2017 [facility] Stomach emptying NM Stomach emptying NM Patient Name: KALEN LEDEZMA : 1960; Age: 57 years Male MR: [id number] Study: Stomach emptying NM 04/20/2017 9:52 AM CDT Clinical Indication: - refractory reflux and nausea COMPARISON: None TECHNIQUE: Gastric emptying study is performed using 1.2 mCi of technetium 99m sulfur colloid mixed with scrambled egg, administered orally. 180 minutes of static imaging was performed at 30 minute intervals in the frontal plane - starting 1 minutes after radiotracer administration. The data was used for gastric emptying calculation/extrapolation. FINDINGS: There is normal gastric emptying noted. There is progression of the radiotracer into bowel. The T-1/2 is 90 minutes (normal for solids < 90 minutes). % excretion at approx. 60 minutes: 35 % % excretion at approx. 90 minutes: 50 to % % excretion at approx. 120 minutes: 66 % % excretion at approx. 180 minutes: 95 % % excretion at approx. 240 minutes: N/A (Normal >90%) IMPRESSION: 1. Upper limits of normal gastric emptying study, as noted above. SL: [id number] 04/21/2017 - - Read by: Kirk Vergara MD Dictated Date/time: 04/21/17 13:06 Electronically Signed by: Kirk Vergara MD 04/21/17 13:09 FINAL REPORT [facility] Abdomen AP DX Abdomen AP DX Abdomen one view: There is contrast in the stomach and proximal small bowel from the earlier esophagram. There is no significant fecal content in the colon. The gas pattern is otherwise within normal limits. There is no evidence of pneumoperitoneum. There are no acute osseous abnormalities. There is no other significant change compared to 04/07/2017. [id number] 04/20/2017 - - Read by: Abel Coombs MD Dictated Date/time: 04/20/17 14:35 Electronically Signed by: Abel Coombs MD 04/20/17 14:37 FINAL REPORT [facility] Esophagus BA swallow function video DX Esophagus BA swallow function video DX Esophagus BA swallow function video DX Modified barium swallow: CLINICAL HISTORY: Dysphagia, NOS. feeding difficulties FT - 38 seconds. Total Dose - 4.[address] Farrell - [facility] notes [facility] TECHNIQUE: Fluoroscopic assistance was provided for the speech pathologist for modified barium swallow examination. Varying consistencies of barium were administered po. FINDINGS: No significant oral delay is noted with liquid barium and barium with solids. No evidence for aspiration or any significant laryngeal penetration with thin consistency barium and nectar consistency barium. No evidence for aspiration or any significant laryngeal penetration with pudding consistency barium and barium with cracker preparations. Please, see report by speech pathologist for more detailed assessment. IMPRESSION: Normal study. SL: [id number] 04/20/2017 - - Read by: Bebeto Farrell MD Dictated Date/time: 04/20/17 16:11 Electronically Signed by: Bebeto Farrell MD 04/20/17 16:12 FINAL REPORT [facility] ELECTROLYTES Potassium Lvl 4.6 meq/L 3.5 - 5.1 04/20/2017 [facility] ELECTROLYTES Sodium Lvl 140 meq/L 135 - 145 04/20/2017 [facility] ELECTROLYTES BUN 11 mg/dL 7 - 22 04/20/2017 [facility] ELECTROLYTES Glucose Lvl 88 mg/dL 70 - 99 04/20/2017 [facility] ELECTROLYTES Creatinine Lvl 0.94 mg/dL 0.50 - 1.40 04/20/2017 [facility] ELECTROLYTES AGAP 11.6 meq/L 10.0 - 20.0 04/20/2017 [facility] ELECTROLYTES eGFR 90 mL/min/1.73m2 04/20/2017 Result Comment: The eGFR is calculated using the CKD-EPI formula. In most young, healthy individuals the eGFR will be >90 mL/min/1.73m2. The eGFR declines with age. An eGFR of 60-89 may be normal in some populations, particularly the elderly, for whom the CKD-EPI formula has not been extensively validated. Use of the eGFR is not recommended in the following populations: Individuals with unstable creatinine concentrations, including patients and those with serious co-morbid conditions. Patients with extremes in muscle mass or diet. The data above are obtained from the National Kidney Disease Education Program (NKDEP) which additionally recommends that when the eGFR is used in patients with extremes of body mass index for purposes of drug dosing, the eGFR should be multiplied by the estimated BMI. [facility] ELECTROLYTES CO2 30 meq/L 24 - 32 04/20/2017 [facility] ELECTROLYTES Chloride Lvl 103 meq/L 95 - 109 04/20/2017 [facility] ELECTROLYTES Calcium Lvl 8.5 mg/dL 8.5 - 10.5 04/20/2017 [facility] CARDIAC ENZYMES Troponin-I null 0.00 - 0.40 04/19/2017 [facility] CARDIAC ENZYMES BNP 18 pg/mL <=100 pg/mL 04/19/2017 [facility] CARDIAC ENZYMES Total CK 48 unit/L 12 - 191 04/19/2017 [facility] CARDIAC ENZYMES CK MB null 0.5 - 3.6 04/19/2017 [facility] CARDIAC ENZYMES CK MB Index null 0.0 - 2.5 04/19/2017 [facility] CHEM PANEL Lipase Lvl 100 unit/L 73 - 393 04/19/2017 [facility] CHEM PANEL eGFR 85 mL/min/1.73m2 04/19/2017 Result Comment: The eGFR is calculated using the CKD-EPI formula. In most young, healthy individuals the eGFR will be >90 mL/min/1.73m2. The eGFR declines with age. An eGFR of 60-89 may be normal in some populations, particularly the elderly, for whom the CKD-EPI formula has not been extensively validated. Use of the eGFR is not recommended in the following populations: Individuals with unstable creatinine concentrations, including patients and those with serious co-morbid conditions. Patients with extremes in muscle mass or diet. The data above are obtained from the National Kidney Disease Education Program (NKDEP) which additionally recommends that when the eGFR is used in patients with extremes of body mass index for purposes of drug dosing, the eGFR should be multiplied by the estimated BMI. [facility] CHEM PANEL AGAP 11.6 meq/L 10.0 - 20.0 04/19/2017 [facility] CHEM PANEL Total Protein 7.7 g/dL 6.4 - 8.4 04/19/2017 [facility] CHEM PANEL Calcium Lvl 8.9 mg/dL 8.5 - 10.5 04/19/2017 [facility] CHEM PANEL CO2 28 meq/L 24 - 32 04/19/2017 [facility] CHEM PANEL Chloride Lvl 103 meq/L 95 - 109 04/19/2017 [facility] CHEM PANEL Potassium Lvl 3.6 meq/L 3.5 - 5.1 04/19/2017 [facility] CHEM PANEL Bili Total 1.2 mg/dL 0.2 - 1.3 04/19/2017 [facility] CHEM PANEL Alk Phos 80 unit/L 39 - 136 04/19/2017 [facility] CHEM PANEL AST 22 unit/L 0 - 37 04/19/2017 [facility] CHEM PANEL ALT 28 unit/L 0 - 65 04/19/2017 [facility] CHEM PANEL Albumin Lvl 3.6 g/dL 3.5 - 5.0 04/19/2017 [facility] CHEM PANEL Globulin 4.1 g/dL 2.7 - 4.2 04/19/2017 [facility] CHEM PANEL B/C Ratio 11 6 - 25 04/19/2017 [facility] CHEM PANEL A/G Ratio 0.9 0.7 - 1.6 04/19/2017 [facility] CHEM PANEL Sodium Lvl 139 meq/L 135 - 145 04/19/2017 [facility] CHEM PANEL Creatinine Lvl 0.99 mg/dL 0.50 - 1.40 04/19/2017 [facility] CHEM PANEL BUN 11 mg/dL 7 - 22 04/19/2017 [facility] CHEM PANEL Glucose Lvl 96 mg/dL 70 - 99 04/19/2017 [facility] HEMATOLOGY Hct 45.5 % 42.0 - 54.0 04/19/2017 [facility] HEMATOLOGY Hgb 15.6 g/dL 14.0 - 18.0 04/19/2017 [facility] HEMATOLOGY WBC 10.1 K/CMM 3.7 - 10.4 04/19/2017 [facility] HEMATOLOGY RBC 4.84 M/CMM 4.70 - 6.10 04/19/2017 [facility] HEMATOLOGY MCV 94.0 fL 80.0 - 94.0 04/19/2017 [facility] HEMATOLOGY MPV 8.7 fL 7.4 - 10.4 04/19/2017 [facility] HEMATOLOGY Platelet 150 K/CMM 133 - 450 04/19/2017 [facility] HEMATOLOGY RDW 13.2 % 11.5 - 14.5 04/19/2017 [facility] HEMATOLOGY MCHC 34.3 g/dL 32.0 - 36.0 04/19/2017 [facility] MCH 32.2 pg 27.0 - 31.0 04/19/2017 [facility] HEMATOLOGY Monocytes 4.2 % 2.0 - 12.0 04/19/2017 [facility] HEMATOLOGY Eosinophils 0.4 % 0.0 - 4.0 04/19/2017 [facility] HEMATOLOGY Segs 84.7 % 45.0 - 75.0 04/19/2017 [facility] HEMATOLOGY Lymphocytes 10.6 % 20.0 - 40.0 04/19/2017 [facility] HEMATOLOGY Lymphocytes # 1.1 K/CMM 1.0 - 5.5 04/19/2017 [facility] HEMATOLOGY Basophils 0.1 % 0.0 - 1.0 04/19/2017 [facility] HEMATOLOGY Monocytes # 0.4 K/CMM 0.0 - 0.8 04/19/2017 [facility] HEMATOLOGY Segs-Bands # 8.6 K/CMM 1.5 - 8.1 04/19/2017 [facility] Abdomen RUQ US Abdomen RUQ US Clinical Indication: - abdominal pain, nausea; Comparison: CT 03/06/2017. TECHNIQUE: Grayscale and limited color sonographic evaluation of the right upper quadrant of the abdomen and gallbladder region was performed with standard technique. FINDINGS: LIVER: Normal size of the liver is noted at 15.0 cm craniocaudal dimension with normal echogenicity. No focal hepatic lesion is appreciated. Hepatopedal flow is demonstrated in the main portal vein. BILE DUCTS: The intrahepatic and extrahepatic bile ducts are not dilated with the common bile duct measuring 5 mm. The distal common bile duct is not well seen. GALLBLADDER: There are no gallstones, gallbladder sludge, pericholecystic fluid or wall thickening. PANCREAS: The visualized pancreas appears unremarkable. KIDNEY: The right kidney measures 12.0 cm. There is normal renal contour and morphology, with normal parenchymal echotexture. There is no hydronephrosis. AORTA AND INFERIOR VENA CAVA: Not imaged. ASCITES: There is no right upper quadrant abdominal ascites. IMPRESSION: 1. Unremarkable right upper quadrant ultrasound. SL: [id number] 04/19/2017 - - Read by: Royce Hathaway MD Dictated Date/time: 04/19/17 15:45 Electronically Signed by: Royce Hathaway MD 04/19/17 15:47 FINAL REPORT [facility] CARDIAC ENZYMES CK MB Index null 0.0 - 2.5 04/08/2017 [facility] CARDIAC ENZYMES Total CK 44 unit/L 12 - 191 04/08/2017 [facility] CARDIAC ENZYMES CK MB null 0.5 - 3.6 04/08/2017 [facility] CARDIAC ENZYMES Troponin-I null 0.00 - 0.40 04/08/2017 [facility] CHEM PANEL Lipase Lvl 86 unit/L 73 - 393 04/08/2017 [facility] ELECTROLYTES AGAP 10.3 meq/L 10.0 - 20.0 04/08/2017 [facility] ELECTROLYTES B/C Ratio 9 6 - 25 04/08/2017 [facility] ELECTROLYTES A/G Ratio 0.9 0.7 - 1.6 04/08/2017 [facility] ELECTROLYTES Globulin 3.8 g/dL 2.7 - 4.2 04/08/2017 [facility] ELECTROLYTES eGFR 94 mL/min/1.73m2 04/08/2017 Result Comment: The eGFR is calculated using the CKD-EPI formula. In most young, healthy individuals the eGFR will be >90 mL/min/1.73m2. The eGFR declines with age. An eGFR of 60-89 may be normal in some populations, particularly the elderly, for whom the CKD-EPI formula has not been extensively validated. Use of the eGFR is not recommended in the following populations: Individuals with unstable creatinine concentrations, including patients and those with serious co-morbid conditions. Patients with extremes in muscle mass or diet. The data above are obtained from the National Kidney Disease Education Program (NKDEP) which additionally recommends that when the eGFR is used in patients with extremes of body mass index for purposes of drug dosing, the eGFR should be multiplied by the estimated BMI. [facility] ELECTROLYTES CO2 33 meq/L 24 - 32 04/08/2017 [facility] ELECTROLYTES Albumin Lvl 3.4 g/dL 3.5 - 5.0 04/08/2017 [facility] ELECTROLYTES ALT 27 unit/L 0 - 65 04/08/2017 [facility] ELECTROLYTES Total Protein 7.2 g/dL 6.4 - 8.4 04/08/2017 [facility] ELECTROLYTES Calcium Lvl 9.0 mg/dL 8.5 - 10.5 04/08/2017 [facility] ELECTROLYTES Potassium Lvl 4.3 meq/L 3.5 - 5.1 04/08/2017 [facility] ELECTROLYTES Chloride Lvl 100 meq/L 95 - 109 04/08/2017 [facility] ELECTROLYTES Creatinine Lvl 0.91 mg/dL 0.50 - 1.40 04/08/2017 [facility] ELECTROLYTES BUN 8 mg/dL 7 - 22 04/08/2017 [facility] ELECTROLYTES Sodium Lvl 139 meq/L 135 - 145 04/08/2017 [facility] ELECTROLYTES Glucose Lvl 92 mg/dL 70 - 99 04/08/2017 [facility] ELECTROLYTES AST 20 unit/L 0 - 37 04/08/2017 [facility] ELECTROLYTES Bili Total 0.8 mg/dL 0.2 - 1.3 04/08/2017 [facility] ELECTROLYTES Alk Phos 79 unit/L 39 - 136 04/08/2017 [facility] HEMATOLOGY MPV 8.8 fL 7.4 - 10.4 04/08/2017 [facility] Platelet 143 K/CMM 133 - 450 04/08/2017 [facility] RDW 13.0 % 11.5 - 14.5 04/08/2017 [facility] MCH 32.4 pg 27.0 - 31.0 04/08/2017 [facility] MCV 94.5 fL 80.0 - 94.0 04/08/2017 [facility] Hct 44.5 % 42.0 - 54.0 04/08/2017 [facility] Hgb 15.2 g/dL 14.0 - 18.0 04/08/2017 [facility] MCHC 34.2 g/dL 32.0 - 36.0 04/08/2017 [facility] WBC 8.3 K/CMM 3.7 - 10.4 04/08/2017 [facility] RBC 4.71 M/CMM 4.70 - 6.10 04/08/2017 [facility] Basophils 0.3 % 0.0 - 1.0 04/08/2017 [facility] Segs-Bands # 6.5 K/CMM 1.5 - 8.1 04/08/2017 [facility] Lymphocytes # 1.2 K/CMM 1.0 - 5.5 04/08/2017 [facility] Monocytes # 0.5 K/CMM 0.0 - 0.8 04/08/2017 [facility] Monocytes 6.2 % 2.0 - 12.0 04/08/2017 [facility] Eosinophils 0.5 % 0.0 - 4.0 04/08/2017 [facility] Segs 78.2 % 45.0 - 75.0 04/08/2017 [facility] Lymphocytes 14.8 % 20.0 - 40.0 04/08/2017 [facility] Abdomen AP DX Abdomen AP DX Study: Abdomen, single view Clinical Indication: Diffuse abdominal pain Comparison: None FINDINGS: Single view of the abdomen shows a nonobstructive bowel gas pattern. No suspicious abdominal calcifications are seen. Degenerative change in the lower lumbar spine is seen. IMPRESSION: Nonobstructive bowel gas pattern. SL: [id number] 04/07/2017 - - Read by: Wai Kaur MD Dictated Date/time: 04/07/17 23:02 Electronically Signed by: Wai Kaur MD 04/07/17 23:03 FINAL REPORT [facility] CHEM PANEL Magnesium Lvl 2.8 mg/dL 1.8 - 2.4 03/25/2017 [facility] CHEM PANEL B/C Ratio 10 6 - 25 03/25/2017 [facility] CHEM PANEL Globulin 4.0 g/dL 2.7 - 4.2 03/25/2017 [facility] CHEM PANEL A/G Ratio 0.9 0.7 - 1.6 03/25/2017 [facility] CHEM PANEL AGAP 10.6 meq/L 10.0 - 20.0 03/25/2017 [facility] CHEM PANEL eGFR 84 mL/min/1.73m2 03/25/2017 Result Comment: The eGFR is calculated using the CKD-EPI formula. In most young, healthy individuals the eGFR will be >90 mL/min/1.73m2. The eGFR declines with age. An eGFR of 60-89 may be normal in some populations, particularly the elderly, for whom the CKD-EPI formula has not been extensively validated. Use of the eGFR is not recommended in the following populations: Individuals with unstable creatinine concentrations, including patients and those with serious co-morbid conditions. Patients with extremes in muscle mass or diet. The data above are obtained from the National Kidney Disease Education Program (NKDEP) which additionally recommends that when the eGFR is used in patients with extremes of body mass index for purposes of drug dosing, the eGFR should be multiplied by the estimated BMI. [facility] CHEM PANEL Creatinine Lvl 1.00 mg/dL 0.50 - 1.40 03/25/2017 [facility] CHEM PANEL BUN 10 mg/dL 7 - 22 03/25/2017 [facility] CHEM PANEL Sodium Lvl 139 meq/L 135 - 145 03/25/2017 [facility] CHEM PANEL Glucose Lvl 84 mg/dL 70 - 99 03/25/2017 [facility] CHEM PANEL Albumin Lvl 3.7 g/dL 3.5 - 5.0 03/25/2017 [facility] CHEM PANEL Total Protein 7.7 g/dL 6.4 - 8.4 03/25/2017 [facility] CHEM PANEL AST 28 unit/L 0 - 37 03/25/2017 [facility] CHEM PANEL Bili Total 0.9 mg/dL 0.2 - 1.3 03/25/2017 [facility] CHEM PANEL Alk Phos 76 unit/L 39 - 136 03/25/2017 [facility] CHEM PANEL Calcium Lvl 8.8 mg/dL 8.5 - 10.5 03/25/2017 [facility] CHEM PANEL Chloride Lvl 98 meq/L 95 - 109 03/25/2017 [facility] CHEM PANEL Potassium Lvl 3.6 meq/L 3.5 - 5.1 03/25/2017 [facility] CHEM PANEL ALT 37 unit/L 0 - 65 03/25/2017 [facility] CHEM PANEL CO2 34 meq/L 24 - 32 03/25/2017 [facility] HEMATOLOGY RDW 13.0 % 11.5 - 14.5 03/25/2017 [facility] HEMATOLOGY MCHC 34.8 g/dL 32.0 - 36.0 03/25/2017 [facility] HEMATOLOGY MPV 9.0 fL 7.4 - 10.4 03/25/2017 [facility] HEMATOLOGY Platelet 150 K/CMM 133 - 450 03/25/2017 [facility] HEMATOLOGY WBC 7.2 K/CMM 3.7 - 10.4 03/25/2017 [facility] HEMATOLOGY Hgb 16.0 g/dL 14.0 - 18.0 03/25/2017 [facility] HEMATOLOGY RBC 4.92 M/CMM 4.70 - 6.10 03/25/2017 [facility] HEMATOLOGY Hct 46.0 % 42.0 - 54.0 03/25/2017 [facility] HEMATOLOGY MCV 93.4 fL 80.0 - 94.0 03/25/2017 [facility] MCH 32.5 pg 27.0 - 31.0 03/25/2017 [facility] HEMATOLOGY Monocytes 7.8 % 2.0 - 12.0 03/25/2017 [facility] HEMATOLOGY Basophils 1.1 % 0.0 - 1.0 03/25/2017 [facility] HEMATOLOGY Eosinophils 0.5 % 0.0 - 4.0 03/25/2017 [facility] HEMATOLOGY Segs-Bands # 5.0 K/CMM 1.5 - 8.1 03/25/2017 [facility] HEMATOLOGY Monocytes # 0.6 K/CMM 0.0 - 0.8 03/25/2017 [facility] HEMATOLOGY Lymphocytes # 1.5 K/CMM 1.0 - 5.5 03/25/2017 [facility] HEMATOLOGY Basophils # 0.1 K/CMM 0.0 - 0.2 03/25/2017 [facility] HEMATOLOGY Lymphocytes 20.8 % 20.0 - 40.0 03/25/2017 [facility] HEMATOLOGY Segs 69.8 % 45.0 - 75.0 03/25/2017 [facility] CHEM PANEL Lipase Lvl 92 unit/L 73 - 393 03/24/2017 [facility] CHEM PANEL B/C Ratio 10 6 - 25 03/24/2017 [facility] CHEM PANEL Globulin 3.9 g/dL 2.7 - 4.2 03/24/2017 [facility] CHEM PANEL A/G Ratio 0.9 0.7 - 1.6 03/24/2017 [facility] CHEM PANEL AGAP 9.1 meq/L 10.0 - 20.0 03/24/2017 [facility] CHEM PANEL eGFR 84 mL/min/1.73m2 03/24/2017 Result Comment: The eGFR is calculated using the CKD-EPI formula. In most young, healthy individuals the eGFR will be >90 mL/min/1.73m2. The eGFR declines with age. An eGFR of 60-89 may be normal in some populations, particularly the elderly, for whom the CKD-EPI formula has not been extensively validated. Use of the eGFR is not recommended in the following populations: Individuals with unstable creatinine concentrations, including patients and those with serious co-morbid conditions. Patients with extremes in muscle mass or diet. The data above are obtained from the National Kidney Disease Education Program (NKDEP) which additionally recommends that when the eGFR is used in patients with extremes of body mass index for purposes of drug dosing, the eGFR should be multiplied by the estimated BMI. [facility] CHEM PANEL Total Protein 7.3 g/dL 6.4 - 8.4 03/24/2017 [facility] CHEM PANEL Albumin Lvl 3.4 g/dL 3.5 - 5.0 03/24/2017 [facility] CHEM PANEL ALT 31 unit/L 0 - 65 03/24/2017 [facility] CHEM PANEL Creatinine Lvl 1.00 mg/dL 0.50 - 1.40 03/24/2017 [facility] CHEM PANEL Sodium Lvl 138 meq/L 135 - 145 03/24/2017 [facility] CHEM PANEL Alk Phos 68 unit/L 39 - 136 03/24/2017 [facility] CHEM PANEL AST 32 unit/L 0 - 37 03/24/2017 [facility] CHEM PANEL Bili Total 0.8 mg/dL 0.2 - 1.3 03/24/2017 [facility] CHEM PANEL Potassium Lvl 4.1 meq/L 3.5 - 5.1 03/24/2017 [facility] CHEM PANEL Calcium Lvl 8.9 mg/dL 8.5 - 10.5 03/24/2017 [facility] CHEM PANEL Chloride Lvl 102 meq/L 95 - 109 03/24/2017 [facility] CHEM PANEL CO2 31 meq/L 24 - 32 03/24/2017 [facility] CHEM PANEL Glucose Lvl 77 mg/dL 70 - 99 03/24/2017 [facility] CHEM PANEL BUN 10 mg/dL 7 - 22 03/24/2017 [facility] HEMATOLOGY Monocytes # 0.5 K/CMM 0.0 - 0.8 03/24/2017 [facility] HEMATOLOGY Lymphocytes 16.6 % 20.0 - 40.0 03/24/2017 [facility] HEMATOLOGY Segs 75.8 % 45.0 - 75.0 03/24/2017 [facility] HEMATOLOGY Eosinophils 0.5 % 0.0 - 4.0 03/24/2017 [facility] HEMATOLOGY Monocytes 6.7 % 2.0 - 12.0 03/24/2017 [facility] HEMATOLOGY Basophils 0.4 % 0.0 - 1.0 03/24/2017 [facility] HEMATOLOGY Segs-Bands # 6.0 K/CMM 1.5 - 8.1 03/24/2017 [facility] HEMATOLOGY Lymphocytes # 1.3 K/CMM 1.0 - 5.5 03/24/2017 [facility] HEMATOLOGY RDW 13.0 % 11.5 - 14.5 03/24/2017 [facility] HEMATOLOGY Platelet 151 K/CMM 133 - 450 03/24/2017 [facility] HEMATOLOGY MPV 9.3 fL 7.4 - 10.4 03/24/2017 [facility] HEMATOLOGY Hgb 15.7 g/dL 14.0 - 18.0 03/24/2017 [facility] HEMATOLOGY MCV 93.9 fL 80.0 - 94.0 03/24/2017 [facility] HEMATOLOGY MCHC 34.6 g/dL 32.0 - 36.0 03/24/2017 [facility] MCH 32.5 pg 27.0 - 31.0 03/24/2017 [facility] HEMATOLOGY RBC 4.81 M/CMM 4.70 - 6.10 03/24/2017 [facility] HEMATOLOGY Hct 45.2 % 42.0 - 54.0 03/24/2017 [facility] HEMATOLOGY WBC 7.9 K/CMM 3.7 - 10.4 03/24/2017 [facility] CARDIAC ENZYMES BNP 15 pg/mL <=100 pg/mL 03/10/2017 [facility] CARDIAC ENZYMES CK MB Index 0.6 0.0 - 2.5 03/10/2017 [facility] CARDIAC ENZYMES CK MB 0.6 ng/mL 0.5 - 3.6 03/10/2017 [facility] CARDIAC ENZYMES Troponin-I null 0.00 - 0.40 03/10/2017 [facility] CARDIAC ENZYMES Total CK 108 unit/L 12 - 191 03/10/2017 [facility] CHEM PANEL ALT 41 unit/L 0 - 65 03/10/2017 [facility] CHEM PANEL AST 43 unit/L 0 - 37 03/10/2017 [facility] CHEM PANEL Alk Phos 63 unit/L 39 - 136 03/10/2017 [facility] CHEM PANEL Globulin 4.1 g/dL 2.7 - 4.2 03/10/2017 [facility] CHEM PANEL Albumin Lvl 3.2 g/dL 3.5 - 5.0 03/10/2017 [facility] PANEL Total Protein 7.3 g/dL 6.4 - 8.4 03/10/2017 [facility] CHEM PANEL A/G Ratio 0.8 0.7 - 1.6 03/10/2017 [facility] CHEM PANEL Bili Indirect 0.6 mg/dL 0.0 - 1.0 03/10/2017 [facility] CHEM PANEL Bili Total 0.7 mg/dL 0.2 - 1.3 03/10/2017 [facility] CHEM PANEL Bili Direct 0.1 mg/dL 0.0 - 0.3 03/10/2017 [facility] PANEL Uric Acid 5.8 mg/dL 3.8 - 8.0 03/10/2017 [facility] CHEM PANEL Phosphorus 4.1 mg/dL 2.5 - 4.5 03/10/2017 [facility] CHEM PANEL Magnesium Lvl 2.1 mg/dL 1.8 - 2.4 03/10/2017 [facility] ELECTROLYTES AGAP 10.3 meq/L 10.0 - 20.0 03/10/2017 [facility] ELECTROLYTES eGFR 84 mL/min/1.73m2 03/10/2017 Result Comment: The eGFR is calculated using the CKD-EPI formula. In most young, healthy individuals the eGFR will be >90 mL/min/1.73m2. The eGFR declines with age. An eGFR of 60-89 may be normal in some populations, particularly the elderly, for whom the CKD-EPI formula has not been extensively validated. Use of the eGFR is not recommended in the following populations: Individuals with unstable creatinine concentrations, including patients and those with serious co-morbid conditions. Patients with extremes in muscle mass or diet. The data above are obtained from the National Kidney Disease Education Program (NKDEP) which additionally recommends that when the eGFR is used in patients with extremes of body mass index for purposes of drug dosing, the eGFR should be multiplied by the estimated BMI. [facility] ELECTROLYTES CO2 32 meq/L 24 - 32 03/10/2017 [facility] ELECTROLYTES Calcium Lvl 9.0 mg/dL 8.5 - 10.5 03/10/2017 [facility] ELECTROLYTES Sodium Lvl 137 meq/L 135 - 145 03/10/2017 [facility] ELECTROLYTES Potassium Lvl 4.3 meq/L 3.5 - 5.1 03/10/2017 [facility] ELECTROLYTES Chloride Lvl 99 meq/L 95 - 109 03/10/2017 [facility] ELECTROLYTES BUN 10 mg/dL 7 - 22 03/10/2017 [facility] ELECTROLYTES Creatinine Lvl 1.00 mg/dL 0.50 - 1.40 03/10/2017 [facility] ELECTROLYTES Glucose Lvl 74 mg/dL 70 - 99 03/10/2017 [facility] RDW 13.2 % 11.5 - 14.5 03/10/2017 [facility] Platelet 141 K/CMM 133 - 450 03/10/2017 [facility] MCHC 34.3 g/dL 32.0 - 36.0 03/10/2017 [facility] MPV 9.3 fL 7.4 - 10.4 03/10/2017 [facility] Hgb 15.7 g/dL 14.0 - 18.0 03/10/2017 [facility] Hct 45.7 % 42.0 - 54.0 03/10/2017 [facility] MCV 94.1 fL 80.0 - 94.0 03/10/2017 [facility] MCH 32.3 pg 27.0 - 31.0 03/10/2017 [facility] WBC 6.6 K/CMM 3.7 - 10.4 03/10/2017 [facility] RBC 4.86 M/CMM 4.70 - 6.10 03/10/2017 [facility] Lymphocytes # 1.1 K/CMM 1.0 - 5.5 03/10/2017 [facility] Monocytes # 0.5 K/CMM 0.0 - 0.8 03/10/2017 [facility] Basophils 0.8 % 0.0 - 1.0 03/10/2017 [facility] HEMATOLOGY Segs-Bands # 5.0 K/CMM 1.5 - 8.1 03/10/2017 [facility] HEMATOLOGY Basophils # 0.1 K/CMM 0.0 - 0.2 03/10/2017 [facility] [facility] HEMATOLOGY Monocytes 7.5 % 2.0 - 12.0 03/10/2017 [facility] HEMATOLOGY Segs 74.5 % 45.0 - 75.0 03/10/2017 [facility] HEMATOLOGY Eosinophils 0.6 % 0.0 - 4.0 03/10/2017 [facility] HEMATOLOGY Lymphocytes 16.6 % 20.0 - 40.0 03/10/2017 [facility] IMMUNOLOGY Homocyst Tot 16.5 umol/L 3.7 - 13.9 03/10/2017 [facility] LIPIDS CHD Risk 5.07 4.00 - 7.30 03/10/2017 [facility] LIPIDS LDL (Calculated) 89 mg/dL <=99 mg/dL 03/10/2017 [facility] LIPIDS VLDL 21 03/10/2017 [facility] LIPIDS HDL 27 mg/dL >=61 mg/dL 03/10/2017 [facility] LIPIDS Chol 137 mg/dL <=199 mg/dL 03/10/2017 [facility] LIPIDS Trig 104 mg/dL <=149 mg/dL 03/10/2017 [facility] SPECIAL CHEMISTRY Hgb A1C 5.7 % <=5.6 % 03/10/2017 [facility] CARDIAC ENZYMES Troponin-I null 0.00 - 0.40 03/10/2017 [facility] Chest 1view DX Chest 1view DX EXAM: Chest x-ray one view (frontal) HISTORY:Chest pain COMPARISON: 02/21/2017 FINDINGS: Mediastinum: The heart shadow is moderately enlarged, unchanged. Lungs and pleura: No focal consolidation, pleural effusion or pneumothorax. The pulmonary vascularity is normal. SL: [id number] 03/10/2017 - - Read by: Carine Pacheco MD Dictated Date/time: 03/10/17 03:19 Electronically Signed by: Carine Pacheoc MD 03/10/17 03:21 FINAL REPORT [facility] CARDIAC ENZYMES CK MB Index 1.0 0.0 - 2.5 03/10/2017 [facility] CARDIAC ENZYMES Troponin-I null 0.00 - 0.40 03/10/2017 [facility] CARDIAC ENZYMES CK MB 0.7 ng/mL 0.5 - 3.6 03/10/2017 [facility] CARDIAC ENZYMES Total CK 73 unit/L 12 - 191 03/10/2017 [facility] CARDIAC ENZYMES BNP 34 pg/mL <=100 pg/mL 03/10/2017 [facility] CHEM PANEL eGFR 86 mL/min/1.73m2 03/10/2017 Result Comment: The eGFR is calculated using the CKD-EPI formula. In most young, healthy individuals the eGFR will be >90 mL/min/1.73m2. The eGFR declines with age. An eGFR of 60-89 may be normal in some populations, particularly the elderly, for whom the CKD-EPI formula has not been extensively validated. Use of the eGFR is not recommended in the following populations: Individuals with unstable creatinine concentrations, including patients and those with serious co-morbid conditions. Patients with extremes in muscle mass or diet. The data above are obtained from the National Kidney Disease Education Program (NKDEP) which additionally recommends that when the eGFR is used in patients with extremes of body mass index for purposes of drug dosing, the eGFR should be multiplied by the estimated BMI. [facility] CHEM PANEL AGAP 14.1 meq/L 10.0 - 20.0 03/10/2017 [facility] CHEM PANEL Bili Total 0.5 mg/dL 0.2 - 1.3 03/10/2017 [facility] CHEM PANEL Alk Phos 62 unit/L 39 - 136 03/10/2017 [facility] CHEM PANEL A/G Ratio 0.8 0.7 - 1.6 03/10/2017 [facility] CHEM PANEL AST 33 unit/L 0 - 37 03/10/2017 [facility] CHEM PANEL ALT 41 unit/L 0 - 65 03/10/2017 [facility] CHEM PANEL Albumin Lvl 3.4 g/dL 3.5 - 5.0 03/10/2017 [facility] CHEM PANEL B/C Ratio 9 6 - 25 03/10/2017 [facility] CHEM PANEL Globulin 4.2 g/dL 2.7 - 4.2 03/10/2017 [facility] CHEM PANEL Calcium Lvl 9.2 mg/dL 8.5 - 10.5 03/10/2017 [facility] CHEM PANEL Total Protein 7.6 g/dL 6.4 - 8.4 03/10/2017 [facility] CHEM PANEL Glucose Lvl 84 mg/dL 70 - 99 03/10/2017 [facility] CHEM PANEL Potassium Lvl 4.1 meq/L 3.5 - 5.1 03/10/2017 [facility] CHEM PANEL CO2 29 meq/L 24 - 32 03/10/2017 [facility] CHEM PANEL Chloride Lvl 99 meq/L 95 - 109 03/10/2017 [facility] CHEM PANEL BUN 9 mg/dL 7 - 22 03/10/2017 [facility] CHEM PANEL Sodium Lvl 138 meq/L 135 - 145 03/10/2017 [facility] CHEM PANEL Creatinine Lvl 0.98 mg/dL 0.50 - 1.40 03/10/2017 [facility] HEMATOLOGY Lymphocytes 15.7 % 20.0 - 40.0 03/10/2017 [facility] HEMATOLOGY Lymphocytes # 1.2 K/CMM 1.0 - 5.5 03/10/2017 [facility] HEMATOLOGY Segs-Bands # 5.8 K/CMM 1.5 - 8.1 03/10/2017 [facility] HEMATOLOGY Segs 77.5 % 45.0 - 75.0 03/10/2017 [facility] Monocytes # 0.5 K/CMM 0.0 - 0.8 03/10/2017 [facility] Monocytes 6.3 % 2.0 - 12.0 03/10/2017 [facility] Basophils 0.2 % 0.0 - 1.0 03/10/2017 [facility] HEMATOLOGY Eosinophils 0.3 % 0.0 - 4.0 03/10/2017 [facility] MCV 94.5 fL 80.0 - 94.0 03/10/2017 [facility] Hct 48.6 % 42.0 - 54.0 03/10/2017 [facility] MCH 32.0 pg 27.0 - 31.0 03/10/2017 [facility] MPV 8.8 fL 7.4 - 10.4 03/10/2017 [facility] Platelet 151 K/CMM 133 - 450 03/10/2017 [facility] HEMATOLOGY RDW 13.0 % 11.5 - 14.5 03/10/2017 [facility] MCHC 33.8 g/dL 32.0 - 36.0 03/10/2017 [facility] HEMATOLOGY RBC 5.15 M/CMM 4.70 - 6.10 03/10/2017 [facility] HEMATOLOGY Hgb 16.5 g/dL 14.0 - 18.0 03/10/2017 [facility] HEMATOLOGY WBC 7.5 K/CMM 3.7 - 10.4 03/10/2017 [facility] URINE AND STOOL UA Protein Trace *ABN* (03/07/17 3:54 AM) Negative 03/07/2017 [facility] URINE AND STOOL UA Blood Negative (03/07/17 3:54 AM) Negative 03/07/2017 [facility] URINE AND STOOL UA Bili Small *ABN* (03/07/17 3:54 AM) Negative 03/07/2017 [facility] URINE AND STOOL UA Ketones 15 *ABN* (03/07/17 3:54 AM) Negative 03/07/2017 [facility] URINE AND STOOL UA Glucose Negative (03/07/17 3:54 AM) Negative 03/07/2017 [facility] URINE AND STOOL UA pH 6.0 5.0 - 8.0 03/07/2017 [facility] URINE AND STOOL UA Spec Grav 1.025 <=1.030 03/07/2017 [facility] URINE AND STOOL UA Turbidity Clear (03/07/17 3:54 AM) Clear 03/07/2017 [facility] URINE AND STOOL UA Color Yellow *NA* (03/07/17 3:54 AM) Yellow 03/07/2017 [facility] URINE AND STOOL UA Urobilinogen 1.0 EU/dL 0.1 - 1.0 03/07/2017 [facility] URINE AND STOOL UA Nitrite Negative (03/07/17 3:54 AM) Negative 03/07/2017 [facility] URINE AND STOOL UA Leuk Est Negative (03/07/17 3:54 AM) Negative 03/07/2017 [facility] URINE AND STOOL UA RBC 1 /HPF 0 - 2 03/07/2017 [facility] URINE AND STOOL UA Mucus Many /LPF None Seen /LPF 03/07/2017 [facility] URINE AND STOOL UA WBC 2 /HPF 0 - 5 03/07/2017 [facility] URINE AND STOOL UA Sq Epi Occasional /LPF Few /LPF 03/07/2017 [facility] CARDIAC ENZYMES CK MB 0.7 ng/mL 0.5 - 3.6 03/07/2017 [facility] CARDIAC ENZYMES Troponin-I null 0.00 - 0.40 03/07/2017 [facility] CARDIAC ENZYMES CK MB Index 1.1 0.0 - 2.5 03/07/2017 [facility] CARDIAC ENZYMES Total CK 61 unit/L 12 - 191 03/07/2017 [facility] CHEM PANEL Lipase Lvl 129 unit/L 73 - 393 03/07/2017 [facility] CHEM PANEL Magnesium Lvl 2.6 mg/dL 1.8 - 2.4 03/07/2017 [facility] CHEM PANEL eGFR 67 mL/min/1.73m2 03/07/2017 Result Comment: The eGFR is calculated using the CKD-EPI formula. In most young, healthy individuals the eGFR will be >90 mL/min/1.73m2. The eGFR declines with age. An eGFR of 60-89 may be normal in some populations, particularly the elderly, for whom the CKD-EPI formula has not been extensively validated. Use of the eGFR is not recommended in the following populations: Individuals with unstable creatinine concentrations, including patients and those with serious co-morbid conditions. Patients with extremes in muscle mass or diet. The data above are obtained from the National Kidney Disease Education Program (NKDEP) which additionally recommends that when the eGFR is used in patients with extremes of body mass index for purposes of drug dosing, the eGFR should be multiplied by the estimated BMI. [facility] CHEM PANEL Creatinine Lvl 1.20 mg/dL 0.50 - 1.40 03/07/2017 [facility] CHEM PANEL Sodium Lvl 137 meq/L 135 - 145 03/07/2017 [facility] CHEM PANEL BUN 13 mg/dL 7 - 22 03/07/2017 [facility] CHEM PANEL Potassium Lvl 3.9 meq/L 3.5 - 5.1 03/07/2017 [facility] CHEM PANEL Chloride Lvl 101 meq/L 95 - 109 03/07/2017 [facility] CHEM PANEL ALT 45 unit/L 0 - 65 03/07/2017 [facility] CHEM PANEL Calcium Lvl 8.6 mg/dL 8.5 - 10.5 03/07/2017 [facility] CHEM PANEL Total Protein 7.3 g/dL 6.4 - 8.4 03/07/2017 [facility] CHEM PANEL Glucose Lvl 84 mg/dL 70 - 99 03/07/2017 [facility] CHEM PANEL Albumin Lvl 3.3 g/dL 3.5 - 5.0 03/07/2017 [facility] CHEM PANEL CO2 31 meq/L 24 - 32 03/07/2017 [facility] CHEM PANEL Alk Phos 66 unit/L 39 - 136 03/07/2017 [facility] CHEM PANEL AST 27 unit/L 0 - 37 03/07/2017 [facility] CHEM PANEL Bili Total 0.6 mg/dL 0.2 - 1.3 03/07/2017 [facility] CHEM PANEL Globulin 4.0 g/dL 2.7 - 4.2 03/07/2017 [facility] CHEM PANEL A/G Ratio 0.8 0.7 - 1.6 03/07/2017 [facility] CHEM PANEL AGAP 8.9 meq/L 10.0 - 20.0 03/07/2017 [facility] CHEM PANEL B/C Ratio 11 6 - 25 03/07/2017 [facility] HEMATOLOGY Segs 73.9 % 45.0 - 75.0 03/07/2017 [facility] Monocytes # 0.5 K/CMM 0.0 - 0.8 03/07/2017 [facility] Monocytes 7.1 % 2.0 - 12.0 03/07/2017 [facility] Eosinophils 0.6 % 0.0 - 4.0 03/07/2017 [facility] Lymphocytes 18.1 % 20.0 - 40.0 03/07/2017 [facility] Segs-Bands # 5.0 K/CMM 1.5 - 8.1 03/07/2017 [facility] Lymphocytes # 1.2 K/CMM 1.0 - 5.5 03/07/2017 [facility] Basophils 0.3 % 0.0 - 1.0 03/07/2017 [facility] MCH 32.0 pg 27.0 - 31.0 03/07/2017 [facility] MCV 93.8 fL 80.0 - 94.0 03/07/2017 [facility] Platelet 147 K/CMM 133 - 450 03/07/2017 [facility] RDW 13.2 % 11.5 - 14.5 03/07/2017 [facility] MPV 8.9 fL 7.4 - 10.4 03/07/2017 [facility] MCHC 34.1 g/dL 32.0 - 36.0 03/07/2017 [facility] WBC 6.8 K/CMM 3.7 - 10.4 03/07/2017 [facility] Hgb 16.1 g/dL 14.0 - 18.0 03/07/2017 [facility] RBC 5.05 M/CMM 4.70 - 6.10 03/07/2017 [facility] Hct 47.4 % 42.0 - 54.0 03/07/2017 [facility] Renal Stone CT Renal Stone CT Clinical Indication: L flank pain Comparison: February 02, 2017 TECHNIQUE: Noncontrasted helical imaging was performed from above the diaphragms through the symphysis as a renal stone protocol. Multiplanar reformations are available. IV CONTRAST: No IV contrast was administered. GI CONTRAST: No oral contrast was administered. DLP: 1232 mGy-cm FINDINGS: LOWER CHEST: The lung bases are clear. LIVER: There is fatty infiltration of the liver. There are no gross intrahepatic masses. There is no intrahepatic biliary ductal dilatation noted. BILIARY TREE: The common bile duct is normal in caliber without evidence of filling defects. GALLBLADDER: The gallbladder is poorly distended which limits evaluation. There is no gross abnormalities noted. PANCREAS: The pancreas is unremarkable. The pancreatic duct is normal in caliber. SPLEEN: The spleen is normal in size and there are no parenchymal abnormalities. ADRENALS: The right adrenal gland is unremarkable. The left adrenal gland is unremarkable. KIDNEYS: There is no evidence of renal or ureteral calculi. There is no evidence of hydronephrosis. The renal contours are unremarkable. BOWEL: The visualized portion of the esophagus is unremarkable. The stomach is unremarkable. The small bowel is normal in caliber and there is no evidence of masses or obstruction. The colon is normal in caliber, there are no masses, there is no evidence of diverticulosis or diverticulitis. APPENDIX: The appendix is unremarkable. PELVIS: There are no pelvic mass. The urinary bladder is normal. The prostate and seminal vesicles are unremarkable. PERITONEUM: There is no evidence for free intraperitoneal fluid or air. LYMPH NODES: There is no evidence of mesenteric, retroperitoneal, or inguinal lymphadenopathy. VASCULATURE: The abdominal aorta is normal in caliber. MUSCULOSKELETAL: Limbus vertebra is present at T12. There are degenerative disc changes at L5-S1. IMPRESSION: 1. No evidence for renal or ureteral calculi. 2. No acute lesion is identified on noncontrasted CT abdomen and pelvis. SL: 82 03/06/2017 - - Read by: Félix Blackmon MD Dictated Date/time: 03/06/17 23:08 Electronically Signed by: Félix Blackmon MD 03/06/17 23:17 FINAL REPORT [facility] CHEM PANEL eGFR 75 mL/min/1.73m2 03/05/2017 Result Comment: The eGFR is calculated using the CKD-EPI formula. In most young, healthy individuals the eGFR will be >90 mL/min/1.73m2. The eGFR declines with age. An eGFR of 60-89 may be normal in some populations, particularly the elderly, for whom the CKD-EPI formula has not been extensively validated. Use of the eGFR is not recommended in the following populations: Individuals with unstable creatinine concentrations, including patients and those with serious co-morbid conditions. Patients with extremes in muscle mass or diet. The data above are obtained from the National Kidney Disease Education Program (NKDEP) which additionally recommends that when the eGFR is used in patients with extremes of body mass index for purposes of drug dosing, the eGFR should be multiplied by the estimated BMI. [facility] CHEM PANEL Sodium Lvl 136 meq/L 135 - 145 03/05/2017 [facility] CHEM PANEL Potassium Lvl 3.8 meq/L 3.5 - 5.1 03/05/2017 [facility] CHEM PANEL Creatinine Lvl 1.10 mg/dL 0.50 - 1.40 03/05/2017 [facility] CHEM PANEL CO2 35 meq/L 24 - 32 03/05/2017 [facility] CHEM PANEL Chloride Lvl 98 meq/L 95 - 109 03/05/2017 [facility] CHEM PANEL Calcium Lvl 8.6 mg/dL 8.5 - 10.5 03/05/2017 [facility] CHEM PANEL BUN 10 mg/dL 7 - 22 03/05/2017 [facility] CHEM PANEL Glucose Lvl 100 mg/dL 70 - 99 03/05/2017 [facility] CHEM PANEL AGAP 6.8 meq/L 10.0 - 20.0 03/05/2017 [facility] Platelet 131 K/CMM 133 - 450 03/05/2017 [facility] RDW 13.2 % 11.5 - 14.5 03/05/2017 [facility] WBC 8.0 K/CMM 3.7 - 10.4 03/05/2017 [facility] RBC 4.95 M/CMM 4.70 - 6.10 03/05/2017 [facility] Hgb 16.0 g/dL 14.0 - 18.0 03/05/2017 [facility] Hct 46.9 % 42.0 - 54.0 03/05/2017 [facility] MPV 9.0 fL 7.4 - 10.4 03/05/2017 [facility] MCH 32.4 pg 27.0 - 31.0 03/05/2017 [facility] MCV 94.7 fL 80.0 - 94.0 03/05/2017 [facility] MCHC 34.2 g/dL 32.0 - 36.0 03/05/2017 [facility] HEMATOLOGY Eosinophils 0.6 % 0.0 - 4.0 03/05/2017 [facility] HEMATOLOGY Lymphocytes # 1.4 K/CMM 1.0 - 5.5 03/05/2017 [facility] HEMATOLOGY Segs-Bands # 5.8 K/CMM 1.5 - 8.1 03/05/2017 [facility] HEMATOLOGY Monocytes # 0.7 K/CMM 0.0 - 0.8 03/05/2017 [facility] HEMATOLOGY Basophils 0.4 % 0.0 - 1.0 03/05/2017 [facility] HEMATOLOGY Segs 72.1 % 45.0 - 75.0 03/05/2017 [facility] HEMATOLOGY Lymphocytes 17.7 % 20.0 - 40.0 03/05/2017 [facility] HEMATOLOGY Monocytes 9.2 % 2.0 - 12.0 03/05/2017 [facility] CARDIAC ENZYMES CK MB Index null 0.0 - 2.5 03/05/2017 [facility] CARDIAC ENZYMES Troponin-I null 0.00 - 0.40 03/05/2017 [facility] CARDIAC ENZYMES Total CK 49 unit/L 12 - 191 03/05/2017 [facility] CARDIAC ENZYMES CK MB null 0.5 - 3.6 03/05/2017 [facility] CHEM PANEL Lipase Lvl 185 unit/L 73 - 393 03/05/2017 [facility] CHEM PANEL eGFR 75 mL/min/1.73m2 03/05/2017 Result Comment: The eGFR is calculated using the CKD-EPI formula. In most young, healthy individuals the eGFR will be >90 mL/min/1.73m2. The eGFR declines with age. An eGFR of 60-89 may be normal in some populations, particularly the elderly, for whom the CKD-EPI formula has not been extensively validated. Use of the eGFR is not recommended in the following populations: Individuals with unstable creatinine concentrations, including patients and those with serious co-morbid conditions. Patients with extremes in muscle mass or diet. The data above are obtained from the National Kidney Disease Education Program (NKDEP) which additionally recommends that when the eGFR is used in patients with extremes of body mass index for purposes of drug dosing, the eGFR should be multiplied by the estimated BMI. [facility] CHEM PANEL BUN 10 mg/dL 7 - 22 03/05/2017 [facility] CHEM PANEL Glucose Lvl 90 mg/dL 70 - 99 03/05/2017 [facility] CHEM PANEL Sodium Lvl 136 meq/L 135 - 145 03/05/2017 [facility] CHEM PANEL Creatinine Lvl 1.10 mg/dL 0.50 - 1.40 03/05/2017 [facility] CHEM PANEL A/G Ratio 0.9 0.7 - 1.6 03/05/2017 [facility] CHEM PANEL Globulin 4.0 g/dL 2.7 - 4.2 03/05/2017 [facility] CHEM PANEL Potassium Lvl 3.7 meq/L 3.5 - 5.1 03/05/2017 [facility] CHEM PANEL Bili Total 0.8 mg/dL 0.2 - 1.3 03/05/2017 [facility] CHEM PANEL B/C Ratio 9 6 - 25 03/05/2017 [facility] CHEM PANEL AGAP 14.7 meq/L 10.0 - 20.0 03/05/2017 [facility] CHEM PANEL Alk Phos 71 unit/L 39 - 136 03/05/2017 [facility] CHEM PANEL AST 31 unit/L 0 - 37 03/05/2017 [facility] CHEM PANEL Chloride Lvl 97 meq/L 95 - 109 03/05/2017 [facility] CHEM PANEL Total Protein 7.7 g/dL 6.4 - 8.4 03/05/2017 [facility] CHEM PANEL Calcium Lvl 8.8 mg/dL 8.5 - 10.5 03/05/2017 [facility] CHEM PANEL ALT 51 unit/L 0 - 65 03/05/2017 [facility] CHEM PANEL Albumin Lvl 3.7 g/dL 3.5 - 5.0 03/05/2017 [facility] CHEM PANEL CO2 28 meq/L 24 - 32 03/05/2017 [facility] HEMATOLOGY Eosinophils 0.5 % 0.0 - 4.0 03/05/2017 [facility] HEMATOLOGY Basophils 0.8 % 0.0 - 1.0 03/05/2017 [facility] HEMATOLOGY Monocytes 6.5 % 2.0 - 12.0 03/05/2017 [facility] HEMATOLOGY Segs 79.6 % 45.0 - 75.0 03/05/2017 [facility] HEMATOLOGY Lymphocytes 12.6 % 20.0 - 40.0 03/05/2017 [facility] HEMATOLOGY Basophils # 0.1 K/CMM 0.0 - 0.2 03/05/2017 [facility] HEMATOLOGY Eosinophils # 0.1 K/CMM 0.0 - 0.5 03/05/2017 [facility] HEMATOLOGY Lymphocytes # 1.3 K/CMM 1.0 - 5.5 03/05/2017 [facility] HEMATOLOGY Segs-Bands # 8.1 K/CMM 1.5 - 8.1 03/05/2017 [facility] HEMATOLOGY Monocytes # 0.7 K/CMM 0.0 - 0.8 03/05/2017 [facility] MCHC 34.8 g/dL 32.0 - 36.0 03/05/2017 [facility] RDW 13.3 % 11.5 - 14.5 03/05/2017 [facility] HEMATOLOGY Platelet 155 K/CMM 133 - 450 03/05/2017 [facility] HEMATOLOGY MPV 8.8 fL 7.4 - 10.4 03/05/2017 [facility] Hgb 17.6 g/dL 14.0 - 18.0 03/05/2017 [facility] MCH 32.9 pg 27.0 - 31.0 03/05/2017 [facility] Hct 50.7 % 42.0 - 54.0 03/05/2017 [facility] MCV 94.6 fL 80.0 - 94.0 03/05/2017 [facility] RBC 5.36 M/CMM 4.70 - 6.10 03/05/2017 [facility] HEMATOLOGY WBC 10.2 K/CMM 3.7 - 10.4 03/05/2017 [facility] URINE AND STOOL UA Urobilinogen <=1.0 mg/dL 0.1 - 1.0 03/05/2017 [facility] URINE AND STOOL UA Color Ltyellow 03/05/2017 [facility] URINE AND STOOL UA Leuk Est Negative (03/04/17 7:49 PM) Negative 03/05/2017 [facility] URINE AND STOOL UA Sq Epi Occasional /LPF Few /LPF 03/05/2017 [facility] URINE AND STOOL UA Blood Negative (03/04/17 7:49 PM) Negative 03/05/2017 [facility] URINE AND STOOL UA Nitrite Negative (03/04/17 7:49 PM) Negative 03/05/2017 [facility] URINE AND STOOL UA Hyal Cast 1 /LPF 0 - 2 03/05/2017 [facility] URINE AND STOOL UA Mucus Few /LPF None Seen /LPF 03/05/2017 [facility] URINE AND STOOL UA Ketones Negative mg/dL Negative mg/dL 03/05/2017 [facility] URINE AND STOOL UA Bili Negative *NA* (03/04/17 7:49 PM) Negative 03/05/2017 [facility] URINE AND STOOL UA Spec Grav 1.005 <=1.030 03/05/2017 [facility] URINE AND STOOL UA Turbidity Clear (03/04/17 7:49 PM) Clear 03/05/2017 [facility] URINE AND STOOL UA Protein Negative mg/dL Negative mg/dL 03/05/2017 [facility] URINE AND STOOL UA pH 5.0 5.0 - 8.0 03/05/2017 [facility] URINE AND STOOL UA Glucose Negative mg/dL Negative mg/dL 03/05/2017 [facility] CARDIAC ENZYMES BNP 9 pg/mL <=100 pg/mL 02/21/2017 [facility] CARDIAC ENZYMES Total CK 46 unit/L 12 - 191 02/21/2017 [facility] CARDIAC ENZYMES Troponin-I null 0.00 - 0.40 02/21/2017 [facility] CARDIAC ENZYMES CK MB 0.8 ng/mL 0.5 - 3.6 02/21/2017 [facility] CARDIAC ENZYMES CK MB Index 1.7 0.0 - 2.5 02/21/2017 [facility] CHEM PANEL eGFR 75 mL/min/1.73m2 02/21/2017 Result Comment: The eGFR is calculated using the CKD-EPI formula. In most young, healthy individuals the eGFR will be >90 mL/min/1.73m2. The eGFR declines with age. An eGFR of 60-89 may be normal in some populations, particularly the elderly, for whom the CKD-EPI formula has not been extensively validated. Use of the eGFR is not recommended in the following populations: Individuals with unstable creatinine concentrations, including patients and those with serious co-morbid conditions. Patients with extremes in muscle mass or diet. The data above are obtained from the National Kidney Disease Education Program (NKDEP) which additionally recommends that when the eGFR is used in patients with extremes of body mass index for purposes of drug dosing, the eGFR should be multiplied by the estimated BMI. [facility] CHEM PANEL ALT 56 unit/L 0 - 65 02/21/2017 [facility] CHEM PANEL Albumin Lvl 3.4 g/dL 3.5 - 5.0 02/21/2017 [facility] CHEM PANEL Total Protein 7.4 g/dL 6.4 - 8.4 02/21/2017 [facility] CHEM PANEL AGAP 8.8 meq/L 10.0 - 20.0 02/21/2017 [facility] CHEM PANEL A/G Ratio 0.8 0.7 - 1.6 02/21/2017 [facility] CHEM PANEL Globulin 4.0 g/dL 2.7 - 4.2 02/21/2017 [facility] CHEM PANEL B/C Ratio 9 6 - 25 02/21/2017 [facility] CHEM PANEL Bili Total 0.4 mg/dL 0.2 - 1.3 02/21/2017 [facility] CHEM PANEL Alk Phos 89 unit/L 39 - 136 02/21/2017 [facility] CHEM PANEL AST 25 unit/L 0 - 37 02/21/2017 [facility] CHEM PANEL Potassium Lvl 3.8 meq/L 3.5 - 5.1 02/21/2017 [facility] CHEM PANEL Sodium Lvl 134 meq/L 135 - 145 02/21/2017 [facility] CHEM PANEL Calcium Lvl 8.6 mg/dL 8.5 - 10.5 02/21/2017 [facility] CHEM PANEL CO2 33 meq/L 24 - 32 02/21/2017 [facility] CHEM PANEL Chloride Lvl 96 meq/L 95 - 109 02/21/2017 [facility] CHEM PANEL BUN 10 mg/dL 7 - 22 02/21/2017 [facility] CHEM PANEL Glucose Lvl 97 mg/dL 70 - 99 02/21/2017 [facility] CHEM PANEL Creatinine Lvl 1.10 mg/dL 0.50 - 1.40 02/21/2017 [facility] HEMATOLOGY RDW 13.4 % 11.5 - 14.5 02/21/2017 [facility] HEMATOLOGY MCHC 34.2 g/dL 32.0 - 36.0 02/21/2017 [facility] MCH 32.3 pg 27.0 - 31.0 02/21/2017 [facility] HEMATOLOGY WBC 10.4 K/CMM 3.7 - 10.4 02/21/2017 [facility] HEMATOLOGY RBC 5.14 M/CMM 4.70 - 6.10 02/21/2017 [facility] HEMATOLOGY Hct 48.7 % 42.0 - 54.0 02/21/2017 [facility] HEMATOLOGY MCV 94.6 fL 80.0 - 94.0 02/21/2017 [facility] HEMATOLOGY Hgb 16.6 g/dL 14.0 - 18.0 02/21/2017 [facility] HEMATOLOGY Platelet 150 K/CMM 133 - 450 02/21/2017 [facility] HEMATOLOGY MPV 8.9 fL 7.4 - 10.4 02/21/2017 [facility] HEMATOLOGY Segs-Bands # 8.1 K/CMM 1.5 - 8.1 02/21/2017 [facility] HEMATOLOGY Eosinophils 0.3 % 0.0 - 4.0 02/21/2017 [facility] Monocytes # 0.8 K/CMM 0.0 - 0.8 02/21/2017 [facility] Lymphocytes # 1.4 K/CMM 1.0 - 5.5 02/21/2017 [facility] Segs 78.2 % 45.0 - 75.0 02/21/2017 [facility] Monocytes 7.8 % 2.0 - 12.0 02/21/2017 [facility] Basophils 0.3 % 0.0 - 1.0 02/21/2017 [facility] Lymphocytes 13.4 % 20.0 - 40.0 02/21/2017 [facility] Chest 1view DX Chest 1view DX Clinical Indication: - sob Comparison: February 07, 2017 FINDINGS: The frontal chest radiograph shows normal lung volumes without interstitial or airspace opacities, pleural effusions or pneumothorax. The cardiomediastinal contours are large but stable. Pulmonary vascularity does not appear engorged. There are degenerative changes in the spine. IMPRESSION: 1. There is stable cardiac enlargement without evidence of congestive failure. 2. No definite chest radiographic evidence of acute cardiopulmonary disease. SL: 82 02/21/2017 - - Read by: Félix Blackmon MD Dictated Date/time: 02/21/17 03:21 Electronically Signed by: Félix Blackmon MD 02/21/17 03:23 FINAL REPORT [facility] CHEM PANEL eGFR 84 mL/min/1.73m2 02/08/2017 Result Comment: The eGFR is calculated using the CKD-EPI formula. In most young, healthy individuals the eGFR will be >90 mL/min/1.73m2. The eGFR declines with age. An eGFR of 60-89 may be normal in some populations, particularly the elderly, for whom the CKD-EPI formula has not been extensively validated. Use of the eGFR is not recommended in the following populations: Individuals with unstable creatinine concentrations, including patients and those with serious co-morbid conditions. Patients with extremes in muscle mass or diet. The data above are obtained from the National Kidney Disease Education Program (NKDEP) which additionally recommends that when the eGFR is used in patients with extremes of body mass index for purposes of drug dosing, the eGFR should be multiplied by the estimated BMI. [facility] CHEM PANEL Glucose Lvl 134 mg/dL 70 - 99 02/08/2017 [facility] CHEM PANEL Sodium Lvl 139 meq/L 135 - 145 02/08/2017 [facility] CHEM PANEL Creatinine Lvl 1.00 mg/dL 0.50 - 1.40 02/08/2017 [facility] CHEM PANEL BUN 6 mg/dL 7 - 22 02/08/2017 [facility] CHEM PANEL Potassium Lvl 4.1 meq/L 3.5 - 5.1 02/08/2017 [facility] CHEM PANEL Chloride Lvl 102 meq/L 95 - 109 02/08/2017 [facility] CHEM PANEL CO2 31 meq/L 24 - 32 02/08/2017 [facility] CHEM PANEL AGAP 10.1 meq/L 10.0 - 20.0 02/08/2017 [facility] CHEM PANEL Calcium Lvl 8.5 mg/dL 8.5 - 10.5 02/08/2017 [facility] HEMATOLOGY Segs 84.9 % 45.0 - 75.0 02/08/2017 [facility] HEMATOLOGY Lymphocytes 10.1 % 20.0 - 40.0 02/08/2017 [facility] HEMATOLOGY Monocytes # 0.4 K/CMM 0.0 - 0.8 02/08/2017 [facility] HEMATOLOGY Lymphocytes # 0.9 K/CMM 1.0 - 5.5 02/08/2017 [facility] HEMATOLOGY Segs-Bands # 7.3 K/CMM 1.5 - 8.1 02/08/2017 [facility] HEMATOLOGY Basophils 0.4 % 0.0 - 1.0 02/08/2017 [facility] HEMATOLOGY Eosinophils 0.1 % 0.0 - 4.0 02/08/2017 [facility] HEMATOLOGY Monocytes 4.5 % 2.0 - 12.0 02/08/2017 [facility] HEMATOLOGY MPV 8.3 fL 7.4 - 10.4 02/08/2017 [facility] HEMATOLOGY MCV 95.7 fL 80.0 - 94.0 02/08/2017 [facility] HEMATOLOGY RDW 13.1 % 11.5 - 14.5 02/08/2017 [facility] HEMATOLOGY MCH 32.1 pg 27.0 - 31.0 02/08/2017 [facility] Hgb 15.3 g/dL 14.0 - 18.0 02/08/2017 [facility] HEMATOLOGY WBC 8.5 K/CMM 3.7 - 10.4 02/08/2017 [facility] HEMATOLOGY Hct 45.6 % 42.0 - 54.0 02/08/2017 [facility] HEMATOLOGY RBC 4.76 M/CMM 4.70 - 6.10 02/08/2017 [facility] HEMATOLOGY Platelet 136 K/CMM 133 - 450 02/08/2017 [facility] HEMATOLOGY MCHC 33.5 g/dL 32.0 - 36.0 02/08/2017 [facility] Barium swallow DX Barium swallow DX Patient Name: KALEN LEDEZMA : 1960; Age: 57 years Male MR: [id number] Study: Barium swallow DX 02/08/2017 7:00 AM CDT Clinical Indication: - dysphagia. COMPARISON: None FLUOROSCOPY TIME: 1 minute 6 seconds. TECHNIQUE: Patient swallowed gas crystals and different consistencies of barium without difficulty. Multiple images of the esophagus, were performed in recumbent and upright positions. Examination is limited secondary to the patient's body habitus and poor penetration of the brain. FINDINGS: ESOPHAGUS: The esophagus demonstrates normal caliber and morphology. Mucosal detail is limited secondary to poor penetration of the brain. 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 No evidence for hiatal hernia. The oral and pharyngeal phases of swallowing are normal without aspiration, penetration or nasal regurgitation. There is symmetric movement of the vallecula and piriform sinus with phonation and trumpeting maneuvers. 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 No obvious esophageal obstruction. Limited mucosal detail as described above. [id number] 02/08/2017 - - Read by: Kirk Vergara MD Dictated Date/time: 02/08/17 10:53 Electronically Signed by: Kirk Vergara MD 02/08/17 10:58 FINAL REPORT [facility] URINE AND STOOL UA Glucose Negative mg/dL Negative mg/dL 02/07/2017 [facility] URINE AND STOOL UA Blood Negative (02/07/17 4:35 PM) Negative 02/07/2017 [facility] URINE AND STOOL UA Nitrite Negative (02/07/17 4:35 PM) Negative 02/07/2017 [facility] URINE AND STOOL UA Ketones Negative mg/dL Negative mg/dL 02/07/2017 [facility] URINE AND STOOL UA Bili Negative *NA* (02/07/17 4:35 PM) Negative 02/07/2017 [facility] URINE AND STOOL UA Color Ltyellow 02/07/2017 [facility] URINE AND STOOL UA Sq Epi None Seen 02/07/2017 [facility] URINE AND STOOL UA Urobilinogen <=1.0 mg/dL 0.1 - 1.0 02/07/2017 [facility] URINE AND STOOL UA pH 6.0 5.0 - 8.0 02/07/2017 [facility] URINE AND STOOL UA Turbidity Clear (02/07/17 4:35 PM) Clear 02/07/2017 [facility] URINE AND STOOL UA Protein Negative mg/dL Negative mg/dL 02/07/2017 [facility] URINE AND STOOL UA Spec Grav 1.012 <=1.030 02/07/2017 [facility] URINE AND STOOL UA WBC 1 /HPF 0 - 5 02/07/2017 [facility] URINE AND STOOL UA Leuk Est Negative (02/07/17 4:35 PM) Negative 02/07/2017 [facility] URINE AND STOOL UA RBC 2 /HPF 0 - 2 02/07/2017 [facility] URINE AND STOOL UA Mucus Few /LPF None Seen /LPF 02/07/2017 [facility] CARDIAC ENZYMES Troponin-I null 0.00 - 0.40 02/07/2017 [facility] CARDIAC ENZYMES BNP 28 pg/mL <=100 pg/mL 02/07/2017 [facility] CARDIAC ENZYMES CK MB null 0.5 - 3.6 02/07/2017 [facility] CHEM PANEL Lipase Lvl 119 unit/L 73 - 393 02/07/2017 [facility] ELECTROLYTES AGAP 8.6 meq/L 10.0 - 20.0 02/07/2017 [facility] ELECTROLYTES eGFR 95 mL/min/1.73m2 02/07/2017 Result Comment: The eGFR is calculated using the CKD-EPI formula. In most young, healthy individuals the eGFR will be >90 mL/min/1.73m2. The eGFR declines with age. An eGFR of 60-89 may be normal in some populations, particularly the elderly, for whom the CKD-EPI formula has not been extensively validated. Use of the eGFR is not recommended in the following populations: Individuals with unstable creatinine concentrations, including patients and those with serious co-morbid conditions. Patients with extremes in muscle mass or diet. The data above are obtained from the National Kidney Disease Education Program (NKDEP) which additionally recommends that when the eGFR is used in patients with extremes of body mass index for purposes of drug dosing, the eGFR should be multiplied by the estimated BMI. [facility] ELECTROLYTES BUN 6 mg/dL 7 - 22 02/07/2017 [facility] ELECTROLYTES Glucose Lvl 97 mg/dL 70 - 99 02/07/2017 [facility] ELECTROLYTES Sodium Lvl 137 meq/L 135 - 145 02/07/2017 [facility] ELECTROLYTES Potassium Lvl 3.6 meq/L 3.5 - 5.1 02/07/2017 [facility] ELECTROLYTES Chloride Lvl 101 meq/L 95 - 109 02/07/2017 [facility] ELECTROLYTES Creatinine Lvl 0.90 mg/dL 0.50 - 1.40 02/07/2017 [facility] ELECTROLYTES CO2 31 meq/L 24 - 32 02/07/2017 [facility] ELECTROLYTES Calcium Lvl 8.7 mg/dL 8.5 - 10.5 02/07/2017 [facility] HEMATOLOGY Segs 79.1 % 45.0 - 75.0 02/07/2017 [facility] HEMATOLOGY Lymphocytes 13.3 % 20.0 - 40.0 02/07/2017 [facility] HEMATOLOGY Basophils 0.6 % 0.0 - 1.0 02/07/2017 [facility] HEMATOLOGY Segs-Bands # 6.2 K/CMM 1.5 - 8.1 02/07/2017 [facility] HEMATOLOGY Lymphocytes # 1.0 K/CMM 1.0 - 5.5 02/07/2017 [facility] HEMATOLOGY Eosinophils 0.5 % 0.0 - 4.0 02/07/2017 [facility] HEMATOLOGY Monocytes 6.5 % 2.0 - 12.0 02/07/2017 [facility] HEMATOLOGY Monocytes # 0.5 K/CMM 0.0 - 0.8 02/07/2017 [facility] HEMATOLOGY Basophils # 0.1 K/CMM 0.0 - 0.2 02/07/2017 [facility] HEMATOLOGY Hct 46.5 % 42.0 - 54.0 02/07/2017 [facility] HEMATOLOGY MCV 95.7 fL 80.0 - 94.0 02/07/2017 [facility] MCH 32.1 pg 27.0 - 31.0 02/07/2017 [facility] HEMATOLOGY RDW 13.4 % 11.5 - 14.5 02/07/2017 [facility] HEMATOLOGY Hgb 15.6 g/dL 14.0 - 18.0 02/07/2017 [facility] MCHC 33.6 g/dL 32.0 - 36.0 02/07/2017 [facility] HEMATOLOGY Platelet 143 K/CMM 133 - 450 02/07/2017 [facility] HEMATOLOGY MPV 8.8 fL 7.4 - 10.4 02/07/2017 [facility] HEMATOLOGY RBC 4.86 M/CMM 4.70 - 6.10 02/07/2017 [facility] HEMATOLOGY WBC 7.9 K/CMM 3.7 - 10.4 02/07/2017 [facility] Chest Pulmonary Embolism CTA Chest Pulmonary Embolism CTA Study: Chest Pulmonary Embolism CTA Clinical Indication: ct dlp: 850.86 mgy/cm. 100cc omni 350, lt ac - worsening shortness of breath, dyspnea; Comparison: CT chest from 11/15/2016 TECHNIQUE: Multiple axial CT images of the chest were acquired following the administration of intravenous contrast according to the pulmonary embolism protocol. Multiplanar and three-dimensional reformatted images were performed. Dose: VYI=139.86 mGy-cm FINDINGS: The cardiac chambers and pericardium are unremarkable. There are no segmental pulmonary emboli noted. The main, right, and left pulmonary arteries are normal. No thoracic aortic aneurysm or dissection is seen. Coronary artery and aortic arch calcifications are seen. No pathologic mediastinal, hilar, or axillary adenopathy is seen. No endobronchial lesions are identified within the central airways. The lungs are clear and without consolidation, mass, or pulmonary nodule. No pleural effusion or pneumothorax is seen. The superficial soft tissues of the chest wall are unremarkable. No suspicious osseous lesions are seen. Limited views of the upper abdomen show no focal abnormality. IMPRESSION: 1. No evidence of pulmonary emboli. 2. No acute cardiopulmonary disease. SL: [id number] 02/07/2017 - - Read by: Wai Kaur MD Dictated Date/time: 02/07/17 15:32 Electronically Signed by: Wai Kaur MD 02/07/17 15:33 FINAL REPORT [facility] 1view DX Chest 1view DX PROCEDURE: Chest, 1 view on 02/07/2017 at 1504 hours. INDICATION: Chest pain. Obesity.. COMPARISON: Chest radiographs dated 02/02/2017 and 01/14/2017. FINDINGS: Very limited study due to patient's large body habitus. No pleural effusion or pneumothorax. Lungs appear clear. Cardiac silhouette is enlarged. Mediastinum is stable. No gross evidence for acute bony abnormality. IMPRESSION: 1. Stable enlarged cardiac silhouette without gross evidence for acute abnormality. 2. Limited study. BENJA: [id number] 02/07/2017 - - Read by: Jude Leon MD Dictated Date/time: 02/07/17 15:23 Electronically Signed by: Jude Leon MD 02/07/17 15:24 FINAL REPORT [facility] CARDIAC ENZYMES Troponin-I null 0.00 - 0.40 02/03/2017 [facility] CARDIAC ENZYMES Troponin-I null 0.00 - 0.40 02/03/2017 [facility] HEMATOLOGY D-Dimer 0.41 ug/mL FEU 02/03/2017 [facility] URINE AND STOOL UA Color Ltyellow 02/02/2017 [facility] URINE AND STOOL UA Urobilinogen <=1.0 mg/dL 0.1 - 1.0 02/02/2017 [facility] URINE AND STOOL UA Sq Epi None Seen 02/02/2017 [facility] URINE AND STOOL UA RBC 4 /HPF 0 - 2 02/02/2017 [facility] URINE AND STOOL UA Ketones Negative mg/dL Negative mg/dL 02/02/2017 [facility] URINE AND STOOL UA Bili Negative *NA* (02/02/17 4:35 PM) Negative 02/02/2017 [facility] URINE AND STOOL UA Blood Negative (02/02/17 4:35 PM) Negative 02/02/2017 [facility] URINE AND STOOL UA Spec Grav 1.006 <=1.030 02/02/2017 [facility] URINE AND STOOL UA pH 7.0 5.0 - 8.0 02/02/2017 [facility] URINE AND STOOL UA Glucose Negative mg/dL Negative mg/dL 02/02/2017 [facility] URINE AND STOOL UA Protein Negative mg/dL Negative mg/dL 02/02/2017 [facility] URINE AND STOOL UA Nitrite Negative (02/02/17 4:35 PM) Negative 02/02/2017 [facility] URINE AND STOOL UA WBC null 0 - 5 02/02/2017 [facility] URINE AND STOOL UA Leuk Est Negative (02/02/17 4:35 PM) Negative 02/02/2017 [facility] URINE AND STOOL UA Turbidity Clear (02/02/17 4:35 PM) Clear 02/02/2017 [facility] CARDIAC ENZYMES Troponin-I null 0.00 - 0.40 02/02/2017 [facility] CHEM PANEL eGFR 67 mL/min/1.73m2 02/02/2017 Result Comment: The eGFR is calculated using the CKD-EPI formula. In most young, healthy individuals the eGFR will be >90 mL/min/1.73m2. The eGFR declines with age. An eGFR of 60-89 may be normal in some populations, particularly the elderly, for whom the CKD-EPI formula has not been extensively validated. Use of the eGFR is not recommended in the following populations: Individuals with unstable creatinine concentrations, including patients and those with serious co-morbid conditions. Patients with extremes in muscle mass or diet. The data above are obtained from the National Kidney Disease Education Program (NKDEP) which additionally recommends that when the eGFR is used in patients with extremes of body mass index for purposes of drug dosing, the eGFR should be multiplied by the estimated BMI. [facility] CHEM PANEL ALT 38 unit/L 0 - 65 02/02/2017 [facility] CHEM PANEL AST 20 unit/L 0 - 37 02/02/2017 [facility] CHEM PANEL Albumin Lvl 3.1 g/dL 3.5 - 5.0 02/02/2017 [facility] CHEM PANEL Alk Phos 73 unit/L 39 - 136 02/02/2017 [facility] CHEM PANEL Bili Total 0.7 mg/dL 0.2 - 1.3 02/02/2017 [facility] CHEM PANEL Glucose Lvl 115 mg/dL 70 - 99 02/02/2017 [facility] CHEM PANEL Creatinine Lvl 1.20 mg/dL 0.50 - 1.40 02/02/2017 [facility] CHEM PANEL Potassium Lvl 3.4 meq/L 3.5 - 5.1 02/02/2017 [facility] CHEM PANEL Sodium Lvl 138 meq/L 135 - 145 02/02/2017 [facility] CHEM PANEL BUN 10 mg/dL 7 - 22 02/02/2017 [facility] CHEM PANEL Total Protein 7.4 g/dL 6.4 - 8.4 02/02/2017 [facility] CHEM PANEL Calcium Lvl 8.9 mg/dL 8.5 - 10.5 02/02/2017 [facility] CHEM PANEL Chloride Lvl 101 meq/L 95 - 109 02/02/2017 [facility] CHEM PANEL CO2 31 meq/L 24 - 32 02/02/2017 [facility] CHEM PANEL Globulin 4.3 g/dL 2.7 - 4.2 02/02/2017 [facility] CHEM PANEL A/G Ratio 0.7 0.7 - 1.6 02/02/2017 [facility] CHEM PANEL B/C Ratio 8 6 - 25 02/02/2017 [facility] CHEM PANEL AGAP 9.4 meq/L 10.0 - 20.0 02/02/2017 [facility] CHEM PANEL Lipase Lvl 128 unit/L 73 - 393 02/02/2017 [facility] Hgb 16.4 g/dL 14.0 - 18.0 02/02/2017 [facility] RBC 5.10 M/CMM 4.70 - 6.10 02/02/2017 [facility] WBC 7.8 K/CMM 3.7 - 10.4 02/02/2017 [facility] MPV 8.8 fL 7.4 - 10.4 02/02/2017 [facility] Hct 48.4 % 42.0 - 54.0 02/02/2017 [facility] Platelet 147 K/CMM 133 - 450 02/02/2017 [facility] RDW 13.3 % 11.5 - 14.5 02/02/2017 [facility] MCV 94.8 fL 80.0 - 94.0 02/02/2017 [facility] MCHC 33.9 g/dL 32.0 - 36.0 02/02/2017 [facility] MCH 32.2 pg 27.0 - 31.0 02/02/2017 [facility] Monocytes 6.5 % 2.0 - 12.0 02/02/2017 [facility] Lymphocytes 12.9 % 20.0 - 40.0 02/02/2017 [facility] Segs 80.0 % 45.0 - 75.0 02/02/2017 [facility] Eosinophils 0.4 % 0.0 - 4.0 02/02/2017 [facility] Basophils 0.2 % 0.0 - 1.0 02/02/2017 [facility] Lymphocytes # 1.0 K/CMM 1.0 - 5.5 02/02/2017 [facility] Monocytes # 0.5 K/CMM 0.0 - 0.8 02/02/2017 [facility] Segs-Bands # 6.3 K/CMM 1.5 - 8.1 02/02/2017 [facility] ED Abdomen/Pelvis IV contrast only CT ED Abdomen/Pelvis IV contrast only CT Clinical Indication:57 years Male with LUQ pain in a obese person, not gettign better; left upper abd pain with vomiting starting last night. pt denies diarrhea. pt aox 3; Comparison: CT abdomen and pelvis 03/04/2014 TECHNIQUE: Helical imaging was performed diaphragm through the symphysis with multiplanar reformations obtained. IV CONTRAST: 100 mL Omnipaque GI CONTRAST: None DLP: 20/77 mGy-cm FINDINGS: Lower thorax: Clear. Hepatobiliary: No focal hepatic lesion. No biliary ductal dilatation. Hepatic steatosis. Pancreas: No focal mass or ductal dilatation. Spleen: No splenomegaly. Adrenals: No nodules. Kidneys: No hydronephrosis or renal stones. Pelvic organs: Unremarkable. Peritoneum/Retroperitoneum: No free air or free fluid. Lymph nodes: No lymphadenopathy. Vessels: Unremarkable. Bowel: No significant bowel thickening or dilatation. The appendix is visualized and appears unremarkable. Bones and soft tissues: No acute osseous abnormalities. IMPRESSION: No acute abnormalities of the abdomen or pelvis. SL: [id number] 02/02/2017 - - Read by: Abel Alejandro MD Dictated Date/time: 02/02/17 18:00 Electronically Signed by: Abel Alejandro MD 02/02/17 18:06 FINAL REPORT [facility] Chest 1view DX Chest 1view DX Patient Name: KALEN LEDEZMA : 1960; Age: 57 years y/o Male MR: [id number] Study: Chest 1view DX 02/02/2017 3:29 PM CDT Ordering Physician: Clinical Indication: - near syncope; Comparison: 01/14/2017. 1 view chest Stable mild cardiomegaly, without overt congestive heart failure or pulmonary edema. The lungs are clear. No pleural effusion or pneumothorax. No osseous abnormalities appreciated. IMPRESSION: No new or acute finding. SL: [id number] 02/02/2017 - - Read by: Navin Kerr MD Dictated Date/time: 02/02/17 16:28 Electronically Signed by: Navin Kerr MD 02/02/17 16:28 FINAL REPORT [facility] Abdomen RUQ US Abdomen RUQ US Abdomen RUQ US TECHNIQUE: Grayscale and color Doppler images of the right upper quadrant of the abdomen were performed with a curvilinear transducer. Static images are submitted for review. CLINICAL HX: - Left upper abdominal pain; COMPARISON: 11/22/2015 FINDINGS: LIVER: There is diffuse heterogeneous increase in echogenicity of the liver suggestive of fatty infiltration and/or nonspecific hepatocellular disease. Mild hepatomegaly. GALL BLADDER AND BILE DUCTS: Gall bladder is sonolucent without evidence for gall stones. CBD measures 4 mm. PANCREAS: Pancreas is largely obscured by bowel gas. Visualized portion of the pancreas is unremarkable. Right kidney: Right kidney demonstrates normal echotexture and size and reveals no gross masses or any evidence for hydronephrosis. Maximal sagittal diameter of the right kidney is 11.6 cm. Vascular: Midline structures are partially obscured due to bowel gas. Visualized portion of the IVC is unremarkable. Ascites: No free fluid is present in the right upper abdomen. No significant effusion is noted on the right. IMPRESSION: Mild hepatomegaly with fatty infiltration of liver. No evidence for gall stones. No other significant sonographic abnormality is noted in the RUQ of the abdomen. SL: [id number] 02/02/2017 - - Read by: Bebeto Farrell MD Dictated Date/time: 02/02/17 16:21 Electronically Signed by: Bebeto Farrell MD 02/02/17 16:24 FINAL REPORT [facility] BLOOD BANK RESULTS ABO/Rh O POS 01/14/2017 [facility] CARDIAC ENZYMES Troponin-I null 0.00 - 0.40 01/14/2017 [facility] CARDIAC ENZYMES CK MB 0.5 ng/mL 0.5 - 3.6 01/14/2017 [facility] CARDIAC ENZYMES Total CK 43 unit/L 12 - 191 01/14/2017 [facility] CARDIAC ENZYMES BNP 21 pg/mL <=100 pg/mL 01/14/2017 [facility] CARDIAC ENZYMES CK MB Index 1.2 0.0 - 2.5 01/14/2017 [facility] CHEM PANEL eGFR 93 mL/min/1.73m2 01/14/2017 Result Comment: The eGFR is calculated using the CKD-EPI formula. In most young, healthy individuals the eGFR will be >90 mL/min/1.73m2. The eGFR declines with age. An eGFR of 60-89 may be normal in some populations, particularly the elderly, for whom the CKD-EPI formula has not been extensively validated. Use of the eGFR is not recommended in the following populations: Individuals with unstable creatinine concentrations, including patients and those with serious co-morbid conditions. Patients with extremes in muscle mass or diet. The data above are obtained from the National Kidney Disease Education Program (NKDEP) which additionally recommends that when the eGFR is used in patients with extremes of body mass index for purposes of drug dosing, the eGFR should be multiplied by the estimated BMI. [facility] CHEM PANEL CO2 32 meq/L 24 - 32 01/14/2017 [facility] CHEM PANEL Chloride Lvl 100 meq/L 95 - 109 01/14/2017 [facility] CHEM PANEL Potassium Lvl 4.1 meq/L 3.5 - 5.1 01/14/2017 [facility] CHEM PANEL Sodium Lvl 135 meq/L 135 - 145 01/14/2017 [facility] CHEM PANEL Creatinine Lvl 0.92 mg/dL 0.50 - 1.40 01/14/2017 [facility] CHEM PANEL AST 15 unit/L 0 - 37 01/14/2017 [facility] CHEM PANEL ALT 33 unit/L 0 - 65 01/14/2017 [facility] CHEM PANEL Albumin Lvl 3.3 g/dL 3.5 - 5.0 01/14/2017 [facility] CHEM PANEL Total Protein 7.0 g/dL 6.4 - 8.4 01/14/2017 [facility] CHEM PANEL Calcium Lvl 8.9 mg/dL 8.5 - 10.5 01/14/2017 [facility] CHEM PANEL Globulin 3.7 g/dL 2.7 - 4.2 01/14/2017 [facility] CHEM PANEL B/C Ratio 13 6 - 25 01/14/2017 [facility] CHEM PANEL AGAP 7.1 meq/L 10.0 - 20.0 01/14/2017 [facility] CHEM PANEL Bili Total 0.6 mg/dL 0.2 - 1.3 01/14/2017 [facility] CHEM PANEL Alk Phos 74 unit/L 39 - 136 01/14/2017 [facility] CHEM PANEL A/G Ratio 0.9 0.7 - 1.6 01/14/2017 [facility] CHEM PANEL BUN 12 mg/dL 7 - 22 01/14/2017 [facility] CHEM PANEL Glucose Lvl 121 mg/dL 70 - 99 01/14/2017 [facility] HEMATOLOGY PTT 26.6 s 22.9 - 35.8 01/14/2017 [facility] HEMATOLOGY PT 14.1 s 12.0 - 14.7 01/14/2017 [facility] HEMATOLOGY INR 1.07 0.85 - 1.17 01/14/2017 [facility] HEMATOLOGY MCV 93.5 fL 80.0 - 94.0 01/14/2017 [facility] HEMATOLOGY MCH 31.4 pg 27.0 - 31.0 01/14/2017 [facility] HEMATOLOGY Hct 47.5 % 42.0 - 54.0 01/14/2017 [facility] RDW 13.4 % 11.5 - 14.5 01/14/2017 [facility] MCHC 33.6 g/dL 32.0 - 36.0 01/14/2017 [facility] Platelet 137 K/CMM 133 - 450 01/14/2017 [facility] RBC 5.08 M/CMM 4.70 - 6.10 01/14/2017 [facility] Hgb 16.0 g/dL 14.0 - 18.0 01/14/2017 [facility] WBC 13.0 K/CMM 3.7 - 10.4 01/14/2017 [facility] MPV 8.4 fL 7.4 - 10.4 01/14/2017 [facility] Lymphocytes # 0.7 K/CMM 1.0 - 5.5 01/14/2017 [facility] Basophils # 0.1 K/CMM 0.0 - 0.2 01/14/2017 [facility] Monocytes # 0.3 K/CMM 0.0 - 0.8 01/14/2017 [facility] Segs 91.9 % 45.0 - 75.0 01/14/2017 [facility] Lymphocytes 5.1 % 20.0 - 40.0 01/14/2017 [facility] Segs-Bands # 11.9 K/CMM 1.5 - 8.1 01/14/2017 [facility] Basophils 0.4 % 0.0 - 1.0 01/14/2017 [facility] Monocytes 2.6 % 2.0 - 12.0 01/14/2017 [facility] Chest 1view DX Chest 1view DX Portable chest: There are technical limitations due to patient's size. The cardiac silhouette is mildly enlarged. The pulmonary vasculature is normal. The left base is not fully evaluated due to underexposure. The visible lungs and pleural spaces are otherwise clear. There is no significant change compared to 12/25/2016 considering technical differences. [id number] 01/14/2017 - - Read by: Abel Coombs MD Dictated Date/time: 01/14/17 16:13 Electronically Signed by: Abel Coombs MD 01/14/17 16:14 FINAL REPORT [facility] Knee 3 views DX Knee 3 views DX Patient Name: KALEN LEDEZMA : 1960; Age: 56 years Male MR: [id number] Study: Knee 3 views DX 01/12/2017 2:58 PM CDT Clinical Indication: - r/o fx. Right knee pain. COMPARISON: None FINDINGS: Views and laterality: 3 views right Examination of the knee demonstrates normal alignment without fractures or dislocations. There is mild medial compartment osteoarthritic change. There is no knee regional soft tissue swelling. Hoffa's fat pad is normal. There are no loose bodies in the joint space. There is no joint effusion. There are no radiopaque foreign bodies. If there is further concern, recommend follow-up radiographs or MRI for complete assessment. IMPRESSION: No fractures or dislocation of the knee. Mild medial compartment osteoarthritic change. SL: [id number] 01/12/2017 - - Read by: Kirk Vergara MD Dictated Date/time: 01/12/17 15:25 Electronically Signed by: Kirk Vergara MD 01/12/17 15:27 FINAL RE[facility] URINE AND STOOL UA Sq Epi None Seen 12/25/2016 [facility]INE [facility] UA Spec Grav 1.019 <=1.030 12/25/2016 [facility]INE [facility] STO[facility] UA pH 5.0 5.0 - 8.0 12/25/2016 [facility]INE [facility] STOOL UA Turbidity Clear (12/25/16 2:56 AM) Clear 12/25/2016 [facility]INE [facility] STOOL UA Color Yellow *NA* (12/25/16 2:56 AM) Yellow 12/25/2016 [facility]INE [facility] STOOL UA RBC null 0 - 2 12/25/2016 [facility]INE [facility] STOOL UA Leuk Est Negative (12/25/16 2:56 AM) Negative 12/25/2016 [facility] URINE [facility] STOOL UA Nitrite Negative (12/25/16 2:56 AM) Negative 12/25/2016 [facility]INE [facility] STOOL UA WBC 1 /HPF 0 - 5 12/25/2016 [facility] URINE [facility] STOOL UA Urobilinogen 4.0 mg/dL 0.1 - 1.0 12/25/2016 [facility] URINE AND STOOL UA Bili Negative *NA* (12/25/16 2:56 AM) Negative 12/25/2016 [facility] URINE AND STOOL UA Blood Negative (12/25/16 2:56 AM) Negative 12/25/2016 [facility] URINE AND STOOL UA Glucose Negative mg/dL Negative mg/dL 12/25/2016 [facility] URINE AND STOOL UA Protein Negative mg/dL Negative mg/dL 12/25/2016 [facility] URINE AND STOOL UA Ketones Negative mg/dL Negative mg/dL 12/25/2016 [facility] CARDIAC ENZYMES Total CK 46 unit/L 12 - 191 12/25/2016 [facility] CARDIAC ENZYMES CK MB 0.6 ng/mL 0.5 - 3.6 12/25/2016 [facility] CARDIAC ENZYMES Troponin-I null 0.00 - 0.40 12/25/2016 [facility] CARDIAC ENZYMES CK MB Index 1.3 0.0 - 2.5 12/25/2016 [facility] CHEM PANEL Ammonia 15.0 umol/L <=45.0 uMol/L 12/25/2016 [facility] CHEM PANEL eGFR 86 mL/min/1.73m2 12/25/2016 Result Comment: The eGFR is calculated using the CKD-EPI formula. In most young, healthy individuals the eGFR will be >90 mL/min/1.73m2. The eGFR declines with age. An eGFR of 60-89 may be normal in some populations, particularly the elderly, for whom the CKD-EPI formula has not been extensively validated. Use of the eGFR is not recommended in the following populations: Individuals with unstable creatinine concentrations, including patients and those with serious co-morbid conditions. Patients with extremes in muscle mass or diet. The data above are obtained from the National Kidney Disease Education Program (NKDEP) which additionally recommends that when the eGFR is used in patients with extremes of body mass index for purposes of drug dosing, the eGFR should be multiplied by the estimated BMI. [facility] CHEM PANEL A/G Ratio 0.8 0.7 - 1.6 12/25/2016 [facility] CHEM PANEL Globulin 4.0 g/dL 2.7 - 4.2 12/25/2016 [facility] CHEM PANEL Total Protein 7.2 g/dL 6.4 - 8.4 12/25/2016 [facility] CHEM PANEL Calcium Lvl 8.7 mg/dL 8.5 - 10.5 12/25/2016 [facility] CHEM PANEL Albumin Lvl 3.2 g/dL 3.5 - 5.0 12/25/2016 [facility] CHEM PANEL Chloride Lvl 100 meq/L 95 - 109 12/25/2016 [facility] CHEM PANEL CO2 35 meq/L 24 - 32 12/25/2016 [facility] CHEM PANEL Bili Total 0.4 mg/dL 0.2 - 1.3 12/25/2016 [facility] CHEM PANEL AGAP 7.8 meq/L 10.0 - 20.0 12/25/2016 [facility] CHEM PANEL B/C Ratio 14 6 - 25 12/25/2016 [facility] CHEM PANEL AST 16 unit/L 0 - 37 12/25/2016 [facility] CHEM PANEL Alk Phos 103 unit/L 39 - 136 12/25/2016 [facility] CHEM PANEL ALT 25 unit/L 0 - 65 12/25/2016 [facility] CHEM PANEL Sodium Lvl 139 meq/L 135 - 145 12/25/2016 [facility] CHEM PANEL Potassium Lvl 3.8 meq/L 3.5 - 5.1 12/25/2016 [facility] CHEM PANEL Glucose Lvl 119 mg/dL 70 - 99 12/25/2016 [facility] CHEM PANEL Creatinine Lvl 0.98 mg/dL 0.50 - 1.40 12/25/2016 [facility] CHEM PANEL BUN 14 mg/dL 7 - 22 12/25/2016 [facility] HEMATOLOGY Platelet 163 K/CMM 133 - 450 12/25/2016 [facility] HEMATOLOGY MPV 8.4 fL 7.4 - 10.4 12/25/2016 [facility] HEMATOLOGY RDW 13.7 % 11.5 - 14.5 12/25/2016 [facility] HEMATOLOGY RBC 5.11 M/CMM 4.70 - 6.10 12/25/2016 [facility] HEMATOLOGY WBC 11.3 K/CMM 3.7 - 10.4 12/25/2016 [facility] MCHC 33.3 g/dL 32.0 - 36.0 12/25/2016 [facility] MCV 95.5 fL 80.0 - 94.0 12/25/2016 [facility] MCH 31.8 pg 27.0 - 31.0 12/25/2016 [facility] HEMATOLOGY Hgb 16.2 g/dL 14.0 - 18.0 12/25/2016 [facility] HEMATOLOGY Hct 48.8 % 42.0 - 54.0 12/25/2016 [facility] HEMATOLOGY PT 13.5 s 12.0 - 14.7 12/25/2016 [facility] HEMATOLOGY INR 1.01 0.85 - 1.17 12/25/2016 [facility] PTT 28.5 s 22.9 - 35.8 12/25/2016 [facility] HEMATOLOGY Segs 83.3 % 45.0 - 75.0 12/25/2016 [facility] HEMATOLOGY Eosinophils 0.2 % 0.0 - 4.0 12/25/2016 [facility] Lymphocytes 11.3 % 20.0 - 40.0 12/25/2016 [facility] HEMATOLOGY Basophils 0.4 % 0.0 - 1.0 12/25/2016 [facility] HEMATOLOGY Segs-Bands # 9.4 K/CMM 1.5 - 8.1 12/25/2016 [facility] Monocytes 4.8 % 2.0 - 12.0 12/25/2016 [facility] Lymphocytes # 1.3 K/CMM 1.0 - 5.5 12/25/2016 [facility] Monocytes # 0.5 K/CMM 0.0 - 0.8 12/25/2016 [facility] Brain wo contrast CT Brain wo contrast CT Clinical Indication: ct dlp 981.84mgycm - dizziness x days Comparison: CT head 10/01/2015. TECHNIQUE: CT images were obtained from the foramen magnum to the vertex without the use of intravenous contrast on a multidetector CT. Coronal and sagittal reconstructions were obtained. CT radiation dose DLP: 981.84 mGy-cm FINDINGS: BRAIN PARENCHYMA: The fragoso-white differentiation is preserved without CT evidence of acute territorial infarction. There is no mass effect, midline shift or edema. There are no intra-axial or extra-axial fluid collections, intraventricular or intraparenchymal hemorrhage. Atherosclerotic calcifications are seen of the cavernous segments of the internal carotid arteries. VENTRICLES: The ventricles are appropriate for the patient's stated age. There is no evidence of hydrocephalus. The basilar cisterns are within normal limits. ORBITS, MASTOIDS AND PARANASAL SINUSES: There is mild bilateral ethmoid sinus mucosal thickening. The visualized orbits are unremarkable. The mastoid air cells are clear. SKULL: There are no osseous abnormalities. If there is further concern for intracranial pathology or acute stroke, MRI of the brain may be performed for complete assessment. IMPRESSION: No acute intracranial hemorrhage or mass effect. No CT evidence of acute territorial infarction. SL: [id number] 12/25/2016 - - Read by: Alexy Mills MD Dictated Date/time: 12/25/16 02:22 Electronically Signed by: Alexy Mills MD 12/25/16 02:26 FINAL REPORT [facility] Chest 1view DX Chest 1view DX EXAM: XR CHEST 1 VIEW DATE: 12/25/2016 1:19 AM CDT INDICATION: Dyspnea. COMPARISON: 11/15/2016 TECHNIQUE: A single AP view of the chest was obtained. FINDINGS: No focal consolidation or pneumothorax is identified. The cardiac silhouette is mildly enlarged. The costophrenic recesses are sharp and without effusion. No acute osseous abnormality is noted. IMPRESSION: No acute cardiopulmonary abnormality. SL: [id number] 12/25/2016 - - Read by: Jose Pruitt MD Dictated Date/time: 12/25/16 01:35 Electronically Signed by: Joes Pruitt MD 12/25/16 01:35 FINAL REPORT [facility] CHEM PANEL eGFR 85 mL/min/1.73m2 11/16/2016 Result Comment: The eGFR is calculated using the CKD-EPI formula. In most young, healthy individuals the eGFR will be >90 mL/min/1.73m2. The eGFR declines with age. An eGFR of 60-89 may be normal in some populations, particularly the elderly, for whom the CKD-EPI formula has not been extensively validated. Use of the eGFR is not recommended in the following populations: Individuals with unstable creatinine concentrations, including patients and those with serious co-morbid conditions. Patients with extremes in muscle mass or diet. The data above are obtained from the National Kidney Disease Education Program (NKDEP) which additionally recommends that when the eGFR is used in patients with extremes of body mass index for purposes of drug dosing, the eGFR should be multiplied by the estimated BMI. [facility] CHEM PANEL Alk Phos 87 unit/L 39 - 136 11/16/2016 [facility] CHEM PANEL AST 15 unit/L 0 - 37 11/16/2016 [facility] CHEM PANEL ALT 29 unit/L 0 - 65 11/16/2016 [facility] CHEM PANEL Bili Total 0.5 mg/dL 0.2 - 1.3 11/16/2016 [facility] CHEM PANEL Total Protein 6.8 g/dL 6.4 - 8.4 11/16/2016 [facility] CHEM PANEL B/C Ratio 17 6 - 25 11/16/2016 [facility] CHEM PANEL Calcium Lvl 8.7 mg/dL 8.5 - 10.5 11/16/2016 [facility] CHEM PANEL A/G Ratio 0.8 0.7 - 1.6 11/16/2016 [facility] CHEM PANEL Globulin 3.8 g/dL 2.7 - 4.2 11/16/2016 [facility] CHEM PANEL Albumin Lvl 3.0 g/dL 3.5 - 5.0 11/16/2016 [facility] CHEM PANEL Creatinine Lvl 0.99 mg/dL 0.50 - 1.40 11/16/2016 [facility] CHEM PANEL Sodium Lvl 138 meq/L 135 - 145 11/16/2016 [facility] CHEM PANEL AGAP 8.9 meq/L 10.0 - 20.0 11/16/2016 [facility] CHEM PANEL Chloride Lvl 99 meq/L 95 - 109 11/16/2016 [facility] CHEM PANEL CO2 34 meq/L 24 - 32 11/16/2016 [facility] CHEM PANEL Glucose Lvl 132 mg/dL 70 - 99 11/16/2016 [facility] CHEM PANEL Potassium Lvl 3.9 meq/L 3.5 - 5.1 11/16/2016 [facility] CHEM PANEL BUN 17 mg/dL 7 - 22 11/16/2016 [facility] CARDIAC ENZYMES Troponin-I null 0.00 - 0.40 11/16/2016 [facility] LIPIDS VLDL 24 11/15/2016 [facility] LIPIDS LDL (Calculated) 89 mg/dL <=99 mg/dL 11/15/2016 [facility] LIPIDS HDL 35 mg/dL >=61 mg/dL 11/15/2016 [facility] LIPIDS Trig 122 mg/dL <=149 mg/dL 11/15/2016 [facility] LIPIDS Chol 148 mg/dL <=199 mg/dL 11/15/2016 [facility] LIPIDS CHD Risk 4.23 4.00 - 7.30 11/15/2016 [facility] SPECIAL CHEMISTRY Hgb A1C 6.1 % <=5.6 % 11/15/2016 [facility] CARDIAC ENZYMES Troponin-I null 0.00 - 0.40 11/15/2016 [facility] CARDIAC ENZYMES CK MB Index null 0.0 - 2.5 11/15/2016 [facility] CARDIAC ENZYMES CK MB null 0.5 - 3.6 11/15/2016 [facility] CARDIAC ENZYMES Total CK 60 unit/L 12 - 191 11/15/2016 [facility] CARDIAC ENZYMES BNP 9 pg/mL <=100 pg/mL 11/15/2016 [facility] CARDIAC ENZYMES Troponin-I null 0.00 - 0.40 11/15/2016 [facility] CHEM PANEL eGFR 91 mL/min/1.73m2 11/15/2016 Result Comment: The eGFR is calculated using the CKD-EPI formula. In most young, healthy individuals the eGFR will be >90 mL/min/1.73m2. The eGFR declines with age. An eGFR of 60-89 may be normal in some populations, particularly the elderly, for whom the CKD-EPI formula has not been extensively validated. Use of the eGFR is not recommended in the following populations: Individuals with unstable creatinine concentrations, including patients and those with serious co-morbid conditions. Patients with extremes in muscle mass or diet. The data above are obtained from the National Kidney Disease Education Program (NKDEP) which additionally recommends that when the eGFR is used in patients with extremes of body mass index for purposes of drug dosing, the eGFR should be multiplied by the estimated BMI. [facility] CHEM PANEL CO2 29 meq/L 24 - 32 11/15/2016 [facility] CHEM PANEL Albumin Lvl 3.5 g/dL 3.5 - 5.0 11/15/2016 [facility] CHEM PANEL Chloride Lvl 99 meq/L 95 - 109 11/15/2016 [facility] CHEM PANEL Total Protein 7.9 g/dL 6.4 - 8.4 11/15/2016 [facility] CHEM PANEL Calcium Lvl 9.1 mg/dL 8.5 - 10.5 11/15/2016 [facility] CHEM PANEL Creatinine Lvl 0.94 mg/dL 0.50 - 1.40 11/15/2016 [facility] CHEM PANEL Potassium Lvl 4.2 meq/L 3.5 - 5.1 11/15/2016 [facility] CHEM PANEL Sodium Lvl 137 meq/L 135 - 145 11/15/2016 [facility] CHEM PANEL ALT 32 unit/L 0 - 65 11/15/2016 [facility] CHEM PANEL Alk Phos 96 unit/L 39 - 136 11/15/2016 [facility] CHEM PANEL AST 18 unit/L 0 - 37 11/15/2016 [facility] CHEM PANEL BUN 14 mg/dL 7 - 22 11/15/2016 [facility] CHEM PANEL Glucose Lvl 98 mg/dL 70 - 99 11/15/2016 [facility] CHEM PANEL A/G Ratio 0.8 0.7 - 1.6 11/15/2016 [facility] CHEM PANEL Bili Total 0.7 mg/dL 0.2 - 1.3 11/15/2016 [facility] CHEM PANEL Globulin 4.4 g/dL 2.7 - 4.2 11/15/2016 [facility] CHEM PANEL B/C Ratio 15 6 - 25 11/15/2016 [facility] CHEM PANEL AGAP 13.2 meq/L 10.0 - 20.0 11/15/2016 [facility] HEMATOLOGY Basophils # 0.1 K/CMM 0.0 - 0.2 11/15/2016 [facility] HEMATOLOGY Lymphocytes 15.8 % 20.0 - 40.0 11/15/2016 [facility] HEMATOLOGY Monocytes 7.1 % 2.0 - 12.0 11/15/2016 [facility] HEMATOLOGY Segs 76.1 % 45.0 - 75.0 11/15/2016 [facility] HEMATOLOGY Lymphocytes # 1.6 K/CMM 1.0 - 5.5 11/15/2016 [facility] HEMATOLOGY Eosinophils 0.2 % 0.0 - 4.0 11/15/2016 [facility] HEMATOLOGY Basophils 0.8 % 0.0 - 1.0 11/15/2016 [facility] HEMATOLOGY Monocytes # 0.7 K/CMM 0.0 - 0.8 11/15/2016 [facility] Segs-Bands # 7.8 K/CMM 1.5 - 8.1 11/15/2016 [facility] INR 1.01 0.85 - 1.17 11/15/2016 [facility] PT 13.5 s 12.0 - 14.7 11/15/2016 [facility] PTT 28.4 s 22.9 - 35.8 11/15/2016 [facility] MCV 91.6 fL 80.0 - 94.0 11/15/2016 [facility] Hct 50.0 % 42.0 - 54.0 11/15/2016 [facility] MCH 31.4 pg 27.0 - 31.0 11/15/2016 [facility] RDW 13.7 % 11.5 - 14.5 11/15/2016 [facility] MCHC 34.3 g/dL 32.0 - 36.0 11/15/2016 [facility] HEMATOLOGY Platelet 169 K/CMM 133 - 450 11/15/2016 [facility] MPV 8.5 fL 7.4 - 10.4 11/15/2016 [facility] Hgb 17.1 g/dL 14.0 - 18.0 11/15/2016 [facility] RBC 5.46 M/CMM 4.70 - 6.10 11/15/2016 [facility] HEMATOLOGY WBC 10.2 K/CMM 3.7 - 10.4 11/15/2016 [facility] Neck soft tissue wo contrast CT Neck soft tissue wo contrast CT Study: Neck soft tissue wo contrast CT Clinical Indication: ct dlp: 467.47 mgy-cm - feels like something obstructing upper airway Comparison: None TECHNIQUE: Multiple axial CT images of the neck were acquired without the administration of intravenous contrast. Multiplanar reformatted images were performed. JOM=547.47 mGy-cm FINDINGS: The parotid, submandibular, and thyroid glands are normal in appearance. The nasal fossa, nasopharynx, oropharynx, oral cavity and central structures of the floor of the mouth, hypopharynx, larynx and its intrinsic structures, and proximal trachea are unremarkable. No organized hypodense fluid collection is seen. No pathologic adenopathy is noted. Degenerative changes of the cervical spine are seen. The visualized lung apices are clear. The visualized paranasal sinuses and mastoid air cells are well aerated. IMPRESSION: 1. No discrete mass, organized fluid collection, or pathologic adenopathy throughout the soft tissues of the neck. SL: [id number] 11/15/2016 - - Read by: Wai Kaur MD Dictated Date/time: 11/15/16 09:10 Electronically Signed by: Wai Kaur MD 11/15/16 09:15 FINAL REPORT [facility] Chest Pulmonary Embolism CTA Chest Pulmonary Embolism CTA Study: Chest Pulmonary Embolism CTA Clinical Indication: ct dlp: 906.15 mgy-cm, 100 cc' iv contrast - omnipaque - sob, Reports not feeling well since yesterday. Reports SOB. Able to speak in complete sentences without any observed difficulties. Denies PMH.; Comparison: CT chest from 03/04/2014 TECHNIQUE: Multiple axial CT images of the chest were acquired following the administration of intravenous contrast according to the pulmonary embolism protocol. Multiplanar and three-dimensional reformatted images were performed. Dose: LSW=566.15 mGy-cm FINDINGS: The cardiac chambers and pericardium are unremarkable. There are no segmental pulmonary emboli noted. The main, right, and left pulmonary arteries are normal. No thoracic aortic aneurysm or dissection is seen. Coronary artery calcification is seen. No pathologic mediastinal, hilar, or axillary adenopathy is seen. No endobronchial lesions are identified within the central airways. The lungs are clear and without consolidation, mass, or pulmonary nodule. No pleural effusion or pneumothorax is seen. The superficial soft tissues of the chest wall are unremarkable. No suspicious osseous lesions are seen. Limited views of the upper abdomen show no focal abnormality. IMPRESSION: 1. No evidence of pulmonary emboli. 2. No acute cardiopulmonary disease. SL: [id number] 11/15/2016 - - Read by: Wai Kaur MD Dictated Date/time: 11/15/16 09:17 Electronically Signed by: Wai Kaur MD 11/15/16 09:18 FINAL REPORT [facility] Chest 1view DX Chest 1view DX Patient Name: KALEN LEDEZMA : 1960; Age: 56 years Male MR: [id number] Study: Chest 1view DX Order Time: 11/15/2016 5:55 AM CDT Clinical Indication: Chest pain - sob. COMPARISON: July 2016. October 2015. February 2014 x-rays back to March 01. FINDINGS: Views: 1 LUNGS: There is normal lung volume. Bibasilar atelectasis. There are no pleural effusions. There is no pneumothorax. The pulmonary vasculature is normal. MEDIASTINUM: The cardiac silhouette is enlarged. The trachea is midline. BONES: There are no clinically significant osseous abnormalities noted. IMPRESSION: 1. Enlarged cardiac silhouette. Bibasilar atelectasis. SL: [id number] 11/15/2016 - - Read by: Kirk Vergara MD Dictated Date/time: 11/15/16 07:04 Electronically Signed by: Kirk Vergara MD 11/15/16 07:05 FINAL REPORT [facility] HEMATOLOGY D-Dimer 0.22 ug/mL FEU 08/20/2016 [facility] CARDIAC ENZYMES Troponin-I null 0.00 - 0.40 08/20/2016 [facility] CARDIAC ENZYMES Total CK 54 unit/L 12 - 191 08/20/2016 [facility] CARDIAC ENZYMES CK MB null 0.5 - 3.6 08/20/2016 [facility] CARDIAC ENZYMES CK MB Index null 0.0 - 2.5 08/20/2016 [facility] CHEM PANEL eGFR 96 mL/min/1.73m2 08/20/2016 Result Comment: The eGFR is calculated using the CKD-EPI formula. In most young, healthy individuals the eGFR will be >90 mL/min/1.73m2. The eGFR declines with age. An eGFR of 60-89 may be normal in some populations, particularly the elderly, for whom the CKD-EPI formula has not been extensively validated. Use of the eGFR is not recommended in the following populations: Individuals with unstable creatinine concentrations, including patients and those with serious co-morbid conditions. Patients with extremes in muscle mass or diet. The data above are obtained from the National Kidney Disease Education Program (NKDEP) which additionally recommends that when the eGFR is used in patients with extremes of body mass index for purposes of drug dosing, the eGFR should be multiplied by the estimated BMI. [facility] CHEM PANEL B/C Ratio 13 6 - 25 08/20/2016 [facility] CHEM PANEL Bili Total 0.5 mg/dL 0.2 - 1.3 08/20/2016 [facility] CHEM PANEL Alk Phos 83 unit/L 39 - 136 08/20/2016 [facility] CHEM PANEL Globulin 4.2 g/dL 2.7 - 4.2 08/20/2016 [facility] CHEM PANEL Sodium Lvl 137 meq/L 135 - 145 08/20/2016 [facility] CHEM PANEL Creatinine Lvl 0.90 mg/dL 0.50 - 1.40 08/20/2016 [facility] CHEM PANEL Albumin Lvl 3.1 g/dL 3.5 - 5.0 08/20/2016 [facility] CHEM PANEL Total Protein 7.3 g/dL 6.4 - 8.4 08/20/2016 [facility] CHEM PANEL Calcium Lvl 8.6 mg/dL 8.5 - 10.5 08/20/2016 [facility] CHEM PANEL ALT 19 unit/L 0 - 65 08/20/2016 [facility] CHEM PANEL AST 13 unit/L 0 - 37 08/20/2016 [facility] CHEM PANEL Potassium Lvl 3.7 meq/L 3.5 - 5.1 08/20/2016 [facility] CHEM PANEL CO2 30 meq/L 24 - 32 08/20/2016 [facility] CHEM PANEL Chloride Lvl 99 meq/L 95 - 109 08/20/2016 [facility] CHEM PANEL A/G Ratio 0.7 0.7 - 1.6 08/20/2016 [facility] CHEM PANEL AGAP 11.7 meq/L 10.0 - 20.0 08/20/2016 [facility] CHEM PANEL BUN 12 mg/dL 7 - 22 08/20/2016 [facility] CHEM PANEL Glucose Lvl 117 mg/dL 70 - 99 08/20/2016 [facility] Hgb 15.7 g/dL 14.0 - 18.0 08/20/2016 [facility] Hct 46.2 % 42.0 - 54.0 08/20/2016 [facility] MCV 93.7 fL 80.0 - 94.0 08/20/2016 [facility] MCH 31.9 pg 27.0 - 31.0 08/20/2016 [facility] MCHC 34.1 g/dL 32.0 - 36.0 08/20/2016 [facility] RDW 12.9 % 11.5 - 14.5 08/20/2016 [facility] MPV 8.3 fL 7.4 - 10.4 08/20/2016 [facility] Platelet 185 K/CMM 133 - 450 08/20/2016 [facility] WBC 9.7 K/CMM 3.7 - 10.4 08/20/2016 [facility] RBC 4.93 M/CMM 4.70 - 6.10 08/20/2016 [facility] Segs-Bands # 7.7 K/CMM 1.5 - 8.1 08/20/2016 [facility] Basophils 0.6 % 0.0 - 1.0 08/20/2016 [facility] Eosinophils 0.5 % 0.0 - 4.0 08/20/2016 [facility] Basophils # 0.1 K/CMM 0.0 - 0.2 08/20/2016 [facility] Lymphocytes # 1.4 K/CMM 1.0 - 5.5 08/20/2016 [facility] Monocytes # 0.5 K/CMM 0.0 - 0.8 08/20/2016 [facility] Monocytes 5.3 % 2.0 - 12.0 08/20/2016 [facility] Segs 79.1 % 45.0 - 75.0 08/20/2016 [facility] Lymphocytes 14.5 % 20.0 - 40.0 08/20/2016 [facility] Chest 1view DX Chest 1view DX Patient Name: KALEN LEDEZMA : 1960; Age: 56 years Male MR: [id number] Study: Chest 1view DX Order Time: 08/20/2016 12:51 PM CARDIOLOGY RN Clinical Indication: Chest pain COMPARISON: 11/23/2015 FINDINGS: Single frontal view of the chest has been submitted for evaluation. The mildly enlarged cardiac silhouette end tortuous descending thoracic aorta are unchanged. There is some left basilar airspace opacification with blunting of the left costophrenic angle. No pneumothorax. The bones are demineralized. IMPRESSION: Left basilar airspace disease with a small left effusion. SL: [id number] 08/20/2016 - - Read by: Jude Dimas MD Dictated Date/time: 08/20/16 14:07 Electronically Signed by: Jude Dimas MD 08/20/16 14:09 FINAL REPORT [facility] Lymphocytes # 1.7 K/CMM 1.0 - 5.5 07/22/2016 [facility] Segs-Bands # 9.2 K/CMM 1.5 - 8.1 07/22/2016 [facility] Eosinophils 0.3 % 0.0 - 4.0 07/22/2016 [facility] Basophils 0.4 % 0.0 - 1.0 07/22/2016 [facility] Monocytes # 0.7 K/CMM 0.0 - 0.8 07/22/2016 [facility] Monocytes 6.0 % 2.0 - 12.0 07/22/2016 [facility] Lymphocytes 14.3 % 20.0 - 40.0 07/22/2016 [facility] Segs 79.0 % 45.0 - 75.0 07/22/2016 [facility] Platelet 152 K/CMM 133 - 450 07/22/2016 [facility] MPV 8.6 fL 7.4 - 10.4 07/22/2016 [facility] MCV 94.6 fL 80.0 - 94.0 07/22/2016 [facility] MCH 32.1 pg 27.0 - 31.0 07/22/2016 [facility] MCHC 34.0 g/dL 32.0 - 36.0 07/22/2016 [facility] RDW 13.5 % 11.5 - 14.5 07/22/2016 [facility] WBC 11.6 K/CMM 3.7 - 10.4 07/22/2016 [facility] Hgb 15.4 g/dL 14.0 - 18.0 07/22/2016 [facility] RBC 4.79 M/CMM 4.70 - 6.10 07/22/2016 [facility] Hct 45.3 % 42.0 - 54.0 07/22/2016 [facility] URINE AND STOOL Occult Bld Stl Positive *ABN* (07/21/16 7:06 PM) Negative 07/22/2016 [facility] BLOOD BANK RESULTS Antibody Scrn Negative (07/21/16 5:17 PM) 07/21/2016 [facility] BLOOD BANK RESULTS ABO/Rh O POS 07/21/2016 [facility] CHEM PANEL Lipase Lvl 114 unit/L 73 - 393 07/21/2016 [facility] CHEM PANEL Globulin 3.8 g/dL 2.7 - 4.2 07/21/2016 [facility] CHEM PANEL B/C Ratio 19 6 - 25 07/21/2016 [facility] CHEM PANEL AGAP 9.8 meq/L 10.0 - 20.0 07/21/2016 [facility] CHEM PANEL A/G Ratio 0.8 0.7 - 1.6 07/21/2016 [facility] CHEM PANEL Alk Phos 75 unit/L 39 - 136 07/21/2016 [facility] CHEM PANEL eGFR 102 mL/min/1.73m2 07/21/2016 Result Comment: The eGFR is calculated using the CKD-EPI formula. In most young, healthy individuals the eGFR will be >90 mL/min/1.73m2. The eGFR declines with age. An eGFR of 60-89 may be normal in some populations, particularly the elderly, for whom the CKD-EPI formula has not been extensively validated. Use of the eGFR is not recommended in the following populations: Individuals with unstable creatinine concentrations, including patients and those with serious co-morbid conditions. Patients with extremes in muscle mass or diet. The data above are obtained from the National Kidney Disease Education Program (NKDEP) which additionally recommends that when the eGFR is used in patients with extremes of body mass index for purposes of drug dosing, the eGFR should be multiplied by the estimated BMI. [facility] CHEM PANEL Bili Total 0.5 mg/dL 0.2 - 1.3 07/21/2016 [facility] CHEM PANEL ALT 21 unit/L 0 - 65 07/21/2016 [facility] CHEM PANEL AST 11 unit/L 0 - 37 07/21/2016 [facility] CHEM PANEL Total Protein 7.0 g/dL 6.4 - 8.4 07/21/2016 [facility] CHEM PANEL Albumin Lvl 3.2 g/dL 3.5 - 5.0 07/21/2016 [facility] CHEM PANEL Chloride Lvl 101 meq/L 95 - 109 07/21/2016 [facility] CHEM PANEL Sodium Lvl 137 meq/L 135 - 145 07/21/2016 [facility] CHEM PANEL Potassium Lvl 3.8 meq/L 3.5 - 5.1 07/21/2016 [facility] CHEM PANEL Calcium Lvl 8.7 mg/dL 8.5 - 10.5 07/21/2016 [facility] CHEM PANEL CO2 30 meq/L 24 - 32 07/21/2016 [facility] CHEM PANEL BUN 15 mg/dL 7 - 22 07/21/2016 [facility] CHEM PANEL Creatinine Lvl 0.77 mg/dL 0.50 - 1.40 07/21/2016 [facility] CHEM PANEL Glucose Lvl 107 mg/dL 70 - 99 07/21/2016 [facility] HEMATOLOGY Basophils # 0.1 K/CMM 0.0 - 0.2 07/21/2016 [facility] HEMATOLOGY Monocytes # 0.6 K/CMM 0.0 - 0.8 07/21/2016 [facility] HEMATOLOGY Segs-Bands # 8.5 K/CMM 1.5 - 8.1 07/21/2016 [facility] HEMATOLOGY Segs 79.8 % 45.0 - 75.0 07/21/2016 [facility] HEMATOLOGY Lymphocytes # 1.4 K/CMM 1.0 - 5.5 07/21/2016 [facility] HEMATOLOGY Basophils 0.7 % 0.0 - 1.0 07/21/2016 [facility] HEMATOLOGY Eosinophils 0.3 % 0.0 - 4.0 07/21/2016 [facility] HEMATOLOGY Monocytes 5.9 % 2.0 - 12.0 07/21/2016 [facility] HEMATOLOGY Lymphocytes 13.3 % 20.0 - 40.0 07/21/2016 [facility] HEMATOLOGY PTT 31.3 s 22.9 - 35.8 07/21/2016 [facility] HEMATOLOGY PT 13.4 s 12.0 - 14.7 07/21/2016 [facility] HEMATOLOGY INR 1.00 0.85 - 1.17 07/21/2016 [facility] HEMATOLOGY RBC 4.86 M/CMM 4.70 - 6.10 07/21/2016 [facility] HEMATOLOGY Hgb 15.5 g/dL 14.0 - 18.0 07/21/2016 [facility] HEMATOLOGY WBC 10.7 K/CMM 3.7 - 10.4 07/21/2016 [facility] HEMATOLOGY MPV 8.4 fL 7.4 - 10.4 07/21/2016 [facility] HEMATOLOGY MCHC 33.7 g/dL 32.0 - 36.0 07/21/2016 [facility] HEMATOLOGY RDW 13.2 % 11.5 - 14.5 07/21/2016 [facility] HEMATOLOGY Platelet 163 K/CMM 133 - 450 07/21/2016 [facility] HEMATOLOGY Hct 46.0 % 42.0 - 54.0 07/21/2016 [facility] HEMATOLOGY MCV 94.7 fL 80.0 - 94.0 07/21/2016 [facility] HEMATOLOGY MCH 31.9 pg 27.0 - 31.0 07/21/2016 [facility] CARDIAC ENZYMES Troponin-I null 0.00 - 0.40 11/23/2015 [facility] CARDIAC ENZYMES Total CK 66 unit/L 12 - 191 11/23/2015 [facility] CARDIAC ENZYMES CK MB 0.6 ng/mL 0.5 - 3.6 11/23/2015 [facility] CARDIAC ENZYMES CK MB Index 0.9 0.0 - 2.5 11/23/2015 [facility] CHEM PANEL Lipase Lvl 123 unit/L 73 - 393 11/23/2015 [facility] ELECTROLYTES Sodium Lvl 139 meq/L 135 - 145 11/23/2015 [facility] ELECTROLYTES Creatinine Lvl 1.03 mg/dL 0.50 - 1.40 11/23/2015 [facility] ELECTROLYTES Potassium Lvl 3.4 meq/L 3.5 - 5.1 11/23/2015 [facility] ELECTROLYTES BUN 15 mg/dL 7 - 22 11/23/2015 [facility] ELECTROLYTES Glucose Lvl 110 mg/dL 70 - 99 11/23/2015 [facility] ELECTROLYTES Globulin 3.8 g/dL 2.0 - 4.0 11/23/2015 [facility] ELECTROLYTES A/G Ratio 0.9 0.7 - 1.6 11/23/2015 [facility] ELECTROLYTES B/C Ratio 15 6 - 25 11/23/2015 [facility] ELECTROLYTES AGAP 13.4 meq/L 10.0 - 20.0 11/23/2015 [facility] ELECTROLYTES Bili Total 0.8 mg/dL 0.2 - 1.3 11/23/2015 [facility] ELECTROLYTES Alk Phos 73 unit/L 39 - 136 11/23/2015 [facility] ELECTROLYTES ALT 23 unit/L 0 - 65 11/23/2015 [facility] ELECTROLYTES AST 15 unit/L 0 - 37 11/23/2015 [facility] ELECTROLYTES Total Protein 7.1 g/dL 6.4 - 8.4 11/23/2015 [facility] ELECTROLYTES Calcium Lvl 8.5 mg/dL 8.5 - 10.5 11/23/2015 [facility] ELECTROLYTES Albumin Lvl 3.3 g/dL 3.5 - 5.0 11/23/2015 [facility] ELECTROLYTES CO2 28 meq/L 24 - 32 11/23/2015 [facility] ELECTROLYTES Chloride Lvl 101 meq/L 95 - 109 11/23/2015 [facility] ELECTROLYTES eGFR 82 mL/min/1.73m2 11/23/2015 Result Comment: The eGFR is calculated using the CKD-EPI formula. In most young, healthy individuals the eGFR will be >90 mL/min/1.73m2. The eGFR declines with age. An eGFR of 60-89 may be normal in some populations, particularly the elderly, for whom the CKD-EPI formula has not been extensively validated. Use of the eGFR is not recommended in the following populations: Individuals with unstable creatinine concentrations, including patients and those with serious co-morbid conditions. Patients with extremes in muscle mass or diet. The data above are obtained from the National Kidney Disease Education Program (NKDEP) which additionally recommends that when the eGFR is used in patients with extremes of body mass index for purposes of drug dosing, the eGFR should be multiplied by the estimated BMI. [facility] MPV 9.0 fL 7.4 - 10.4 11/23/2015 [facility] WBC 8.9 K/CMM 3.7 - 10.4 11/23/2015 [facility] Hct 47.0 % 42.0 - 54.0 11/23/2015 [facility] Hgb 15.7 g/dL 14.0 - 18.0 11/23/2015 [facility] RBC 5.15 M/CMM 4.70 - 6.10 11/23/2015 [facility] MCHC 33.3 g/dL 32.0 - 36.0 11/23/2015 [facility] MCH 30.5 pg 27.0 - 31.0 11/23/2015 [facility] MCV 91.3 fL 80.0 - 94.0 11/23/2015 [facility] Platelet 148 K/CMM 133 - 450 11/23/2015 [facility] RDW 13.0 % 11.5 - 14.5 11/23/2015 [facility] Basophils # 0.1 K/CMM 0.0 - 0.2 11/23/2015 [facility] HEMATOLOGY Monocytes 6.8 % 2.0 - 12.0 11/23/2015 [facility] HEMATOLOGY Lymphocytes 19.9 % 20.0 - 40.0 11/23/2015 [facility] HEMATOLOGY Segs 72.1 % 45.0 - 75.0 11/23/2015 [facility] Monocytes # 0.6 K/CMM 0.0 - 0.8 11/23/2015 [facility] HEMATOLOGY Basophils 0.7 % 0.0 - 1.0 11/23/2015 [facility] Lymphocytes # 1.8 K/CMM 1.0 - 5.5 11/23/2015 [facility] HEMATOLOGY Segs-Bands # 6.4 K/CMM 1.5 - 8.1 11/23/2015 [facility] Eosinophils 0.5 % 0.0 - 4.0 11/23/2015 [facility] Chest 2 views DX Chest 2 views DX Study: Chest 2 views DX 11/22/2015 11:15 PM CDT Patient Name: KALEN LEDEZMA MR: [id number] : 1960; Age: 55 years y/o Male Ordering Physician: Soledad Cueva DO Clinical Indication: Chest pain Comparison: 03/04/2014. FINDINGS LUNGS: The hyperinflated lungs are clear consolidation, pleural effusion, and pneumothorax. The trachea is midline. HEART AND MEDIASTINUM: Mild cardiomegaly. LINES: None. OSSEOUS STRUCTURES: No fracture, dislocation, or suspicious focal osseous lesion. OTHER: None. IMPRESSION: 1. No acute abnormality as above discussed. SL: [facility]- 11/23/2015 - - Read by: Winston Medeiros MD Dictated Date/time: 11/23/15 00:32 Electronically Signed by: Winston Medeiros MD 11/23/15 00:33 FINAL REPORT [facility] Abdomen RUQ US Abdomen RUQ US Patient Name: KALEN LEDEZMA : 1960; Age: 55 years y/o Male MR: [id number] Study: Abdomen RUQ US 11/22/2015 11:15 PM CDT Ordering Physician: Soledad Cueva DO Clinical Indication: Acute right upper abdominal quadrant pain. Comparison: None TECHNIQUE: Grayscale and limited color sonographic evaluation of the gallbladder was performed with standard technique. FINDINGS: Mildly limited examination secondary to body habitus and overlying bowel gas. LIVER: The hepatic echotexture is diffusely increased and coarsened associated with peripheral ultrasound beam attenuation consistent with steatosis. No focal hepatic lesion is appreciated. BILE DUCTS: No evidence of intrahepatic or extrahepatic biliary ductal dilatation. The visualized common bile duct measures 6 mm at maximum. Portions of the distal common bile duct are never well-visualized. GALLBLADDER: Mildly contracted and appropriately thick walled. PANCREAS: The visualized portions of the pancreas are normal. KIDNEY: The right renal size, shape, and echotexture are normal without nephrolithiasis, hydronephrosis, or focal lesion. Right kidney: 10.8 x 5.6 x 5.8 cm. AORTA AND INFERIOR VENA CAVA: The visualized portions are normal.. ASCITES: No significant fluid accumulation. IMPRESSION: 1. Hepatic steatosis. SL: [facility] 11/23/2015 - - Read by: Winston Medeiros MD Dictated Date/time: 11/23/15 00:26 Electronically Signed by: Winston Medeiros MD 11/23/15 00:27 FINAL REPORT [facility] Spine lumbar wo contrast MRI Spine lumbar wo contrast MRI EXAM: MRI LUMBAR SPINE WITHOUT CONTRAST DATE: 10/11/2015 7:30 PM CDT INDICATION: M47.816 Spondylosis without myelopathy or radiculopathy, lumbar region COMPARISON: Lumbar spine series 10/01/2015 TECHNIQUE: Multiplanar, multisequence MR imaging of the lumbar spine. IV contrast: None. FINDINGS: There are 5 nonrib-bearing lumbar type vertebral bodies on prior radiographs. The lowest fully formed intervertebral disc space is labeled L5-S1. Lumbar vertebral bodies are normal in height and alignment. The conus terminates at T12-L1. T11-T12: Sagittal images only. Disc desiccation with loss of disc height and endplate osteophytes. 3 mm posterior disc bulge/protrusion partially effaces the ventral CSF space. Bilateral facet arthropathy. Mild spinal canal stenosis. Mild bilateral neural foraminal stenosis. T12-L1: No significant spinal canal or neural foraminal stenosis. Graft L1-L2: No significant spinal canal or neural foraminal stenosis. L2-L3: No significant spinal canal or neural foraminal stenosis. L3-L4: No significant spinal canal or neural foraminal stenosis. Mild bilateral facet arthropathy. L4-L5: Circumferential disc bulge with superimposed 4 to 5 mm posterior disc protrusion lateralizing to the right paracentral zone. The disc mildly indents the ventral thecal sac. Mild narrowing of the right subarticular zone. Moderate bilateral facet arthropathy. Mild spinal canal stenosis. No significant neural foraminal stenosis. L5-S1: Severe loss of disc height with endplate osteophytes, vacuum disc phenomenon. Modic 2 and 3 endplate changes. Differential disc bulge with superimposed 6 to 7 mm posterior disc protrusion osteophyte complex. Severe bilateral facet arthropathy. Prominence of the epidural fat. Moderate narrowing the spinal canal. The thecal sac measures 7 to 8 mm in midline AP dimension. Stenosis of the subarticular zones at the level of the disc may encroach upon the descending nerve roots. Disc osteophyte complexes and facet arthropathy project into the bilateral neural foramina with severe bilateral neural f oraminal stenosis concerning for impingement exiting L5 nerve roots. The paraspinous soft tissues are unremarkable. IMPRESSION: Multilevel degenerative change. Findings are most significant at L5-S1, L4-L5 and T11-T12. L5-S1: Severe loss of disc height. 6 to 7 mm posterior disc protrusion osteophyte complex. Severe bilateral facet arthropathy. Prominence of the epidural fat. Moderate narrowing the spinal canal. Stenosis of the subarticular zones at the level of the disc. Disc osteophyte complexes and facet arthropathy project into the bilateral neural foramina with severe bilateral neural foraminal stenosis concerning for impingement exiting L5 nerve roots. L4-L5: Circumferential disc bulge with superimposed 4 to 5 mm posterior disc protrusion lateralizing to the right paracentral zone. Mild narrowing of the right subarticular zone. Moderate bilateral facet arthropathy. Mild spinal canal stenosis. T11-T12: Sagittal images only. Disc desiccation with loss of disc height and endplate osteophytes. 3 mm posterior disc bulge/protrusion partially effaces the ventral CSF space. Bilateral facet arthropathy. Mild spinal canal stenosis. Mild bilateral neural foraminal stenosis. 10/11/2015 - - Read by: Cayla Anglin MD Dictated Date/time: 10/12/15 09:44 Electronically Signed by: Cayla Anglin MD 10/12/15 11:03 FINAL REPORT [facility] Spine cervical wo contrast MRI Spine cervical wo contrast MRI EXAM: MRI CERVICAL SPINE WITHOUT CONTRAST DATE: 10/11/2015 7:29 PM CDT INDICATION: M47.22 Other spondylosis with radiculopathy, cervical region COMPARISON: Cervical spine series 10/01/2015, CT cervical spine 07/22/2013 TECHNIQUE: Multiplanar, multisequence noncontrast imaging of the cervical spine. IV contrast: None. FINDINGS: The craniocervical junction and C1-C2 articulation are unremarkable. Straightening of the normal cervical lordosis. Cervical vertebral bodies are otherwise normal in height and alignment. Multilevel degenerative change. Disc desiccation is seen throughout. Mild loss of disc height and endplate osteophytes particularly at C5-C6 and C6/C7. C2-C3: No significant spinal canal or neural foraminal stenosis. C3-C4: No significant spinal canal stenosis. Left greater than right uncovertebral and facet arthropathy with moderate left neural foraminal stenosis. C4-C5: 2 to 3 mm posterior disc bulge mildly indents the ventral thecal sac and partially effaces the ventral CSF space. The thecal sac measures 10 mm in midline AP dimension. Borderline narrowing of the the spinal canal. C5-C6: Mild loss of disc height. Posterior disc osteophyte complex measuring 3 mm in the posterior central zone. Disc osteophyte complex lateralizes slightly to the left. Disc osteophyte complex partially effaces the ventral CSF space. Mild narrowing of the spinal canal. Left greater than right uncovertebral and facet arthropathy. Severe left neural foraminal stenosis. Mild spinal canal stenosis. C6-C7: 3 to 4 mm posterior central disc protrusion osteophyte complex partially effaces the ventral CSF space. Mild flattening of the ventral cord. Mild spinal canal stenosis. Uncovertebral and facet arthropathy. Motion somewhat limits evaluation of the degree of neural foraminal stenosis. Moderate left neural foraminal stenosis. C7-T1: No significant spinal canal or neural foraminal stenosis. Minimal disc bulge. The cervical cord is normal in signal intensity. The paraspinous soft tissues are unremarkable. IMPRESSION: Cervical spondylosis. Posterior disc osteophyte complexes mildly narrow the spinal canal particularly at C6-C7 and C5-C6. Uncovertebral and facet arthropathy result in neural foraminal stenoses which are most severe on the left at C5-C6 and to a somewhat lesser extent on the left at C6-C7 and C3-C4. 10/11/2015 - - Read by: Cayla Anglin MD Dictated Date/time: 10/12/15 08:52 Electronically Signed by: Cayla Anglin MD 10/12/15 09:26 FINAL REPORT [facility] URINE AND STOOL UA Urobilinogen <=1.0 mg/dL 0.1 - 1.0 10/01/2015 [facility] URINE AND STOOL UA pH 5.0 5.0 - 8.0 10/01/2015 [facility] [facility] URINE AND STOOL UA Spec Grav 1.025 <=1.030 10/01/2015 [facility] URINE AND STOOL UA Turbidity Clear (10/01/15 1:54 AM) Clear 10/01/2015 [facility] URINE AND STOOL UA Color Yellow *NA* (10/01/15 1:54 AM) Yellow 10/01/2015 [facility] URINE AND STOOL UA Blood Negative (10/01/15 1:54 AM) Negative 10/01/2015 [facility] URINE AND STOOL UA Bili Negative *NA* (10/01/15 1:54 AM) Negative 10/01/2015 [facility] URINE AND STOOL UA RBC 2 /HPF 0 - 2 10/01/2015 [facility] URINE AND STOOL UA Leuk Est Negative (10/01/15 1:54 AM) Negative 10/01/2015 [facility] URINE AND STOOL UA Nitrite Negative (10/01/15 1:54 AM) Negative 10/01/2015 [facility] URINE AND STOOL UA WBC 1 /HPF 0 - 5 10/01/2015 [facility] URINE AND STOOL UA Ketones Negative mg/dL Negative mg/dL 10/01/2015 [facility] URINE AND STOOL UA Glucose Negative mg/dL Negative mg/dL 10/01/2015 [facility] URINE AND STOOL UA Protein Negative mg/dL Negative mg/dL 10/01/2015 [facility] URINE AND STOOL UA Sq Epi None Seen 10/01/2015 [facility] ELECTROLYTES AGAP 9.1 meq/L 10.0 - 20.0 10/01/2015 [facility] ELECTROLYTES Calcium Lvl 8.4 mg/dL 8.5 - 10.5 10/01/2015 [facility] ELECTROLYTES CO2 31 meq/L 24 - 32 10/01/2015 [facility] ELECTROLYTES eGFR 93 mL/min/1.73m2 10/01/2015 Result Comment: The eGFR is calculated using the CKD-EPI formula. In most young, healthy individuals the eGFR will be >90 mL/min/1.73m2. The eGFR declines with age. An eGFR of 60-89 may be normal in some populations, particularly the elderly, for whom the CKD-EPI formula has not been extensively validated. Use of the eGFR is not recommended in the following populations: Individuals with unstable creatinine concentrations, including patients and those with serious co-morbid conditions. Patients with extremes in muscle mass or diet. The data above are obtained from the National Kidney Disease Education Program (NKDEP) which additionally recommends that when the eGFR is used in patients with extremes of body mass index for purposes of drug dosing, the eGFR should be multiplied by the estimated BMI. [facility] ELECTROLYTES Glucose Lvl 86 mg/dL 70 - 99 10/01/2015 [facility] ELECTROLYTES Creatinine Lvl 0.92 mg/dL 0.50 - 1.40 10/01/2015 [facility] ELECTROLYTES Sodium Lvl 139 meq/L 135 - 145 10/01/2015 [facility] ELECTROLYTES BUN 18 mg/dL 7 - 22 10/01/2015 [facility] ELECTROLYTES Potassium Lvl 4.1 meq/L 3.5 - 5.1 10/01/2015 [facility] ELECTROLYTES Chloride Lvl 103 meq/L 95 - 109 10/01/2015 [facility] WBC 9.3 K/CMM 3.7 - 10.4 10/01/2015 [facility] Hgb 15.5 g/dL 14.0 - 18.0 10/01/2015 [facility] RBC 5.10 M/CMM 4.70 - 6.10 10/01/2015 [facility] MPV 8.8 fL 7.4 - 10.4 10/01/2015 [facility] Platelet 148 K/CMM 133 - 450 10/01/2015 [facility] MCH 30.4 pg 27.0 - 31.0 10/01/2015 [facility] MCV 90.9 fL 80.0 - 94.0 10/01/2015 [facility] Hct 46.3 % 42.0 - 54.0 10/01/2015 [facility] RDW 13.2 % 11.5 - 14.5 10/01/2015 [facility] MCHC 33.4 g/dL 32.0 - 36.0 10/01/2015 [facility] Segs-Bands # 6.1 K/CMM 1.5 - 8.1 10/01/2015 [facility] Basophils 0.6 % 0.0 - 1.0 10/01/2015 [facility] Lymphocytes # 2.3 K/CMM 1.0 - 5.5 10/01/2015 [facility] HEMATOLOGY Monocytes # 0.7 K/CMM 0.0 - 0.8 10/01/2015 [facility] HEMATOLOGY Eosinophils # 0.1 K/CMM 0.0 - 0.5 10/01/2015 [facility] Basophils # 0.1 K/CMM 0.0 - 0.2 10/01/2015 [facility] Eosinophils 1.3 % 0.0 - 4.0 10/01/2015 [facility] Monocytes 7.9 % 2.0 - 12.0 10/01/2015 [facility] Lymphocytes 25.0 % 20.0 - 40.0 10/01/2015 [facility] Segs 65.2 % 45.0 - 75.0 10/01/2015 [facility] Brain wo contrast CT Brain wo contrast CT Study: Brain wo contrast CT Clinical Indication: Weakness Comparison: CT brain from 01/04/2007. TECHNIQUE: Multiple axial CT images of the brain were acquired without the administration of intravenous contrast. Coronal and sagittal reconstructions were obtained. CT radiation dose DLP: 1404.14 mGy-cm FINDINGS: Age-related involutional changes of the brain parenchyma are identified. No acute intracranial hemorrhage, mass effect, midline shift, or hydrocephalus is seen. There are no extra-axial fluid collections. The visualized paranasal sinuses and mastoid air cells are well aerated. IMPRESSION: No acute intracranial abnormality. SL: [id number] 10/01/2015 - - Read by: Wai Kaur MD Dictated Date/time: 10/01/15 02:46 Electronically Signed by: Wai Kaur MD 10/01/15 02:47 FINAL REPORT [facility] Spine lumbar 2 or 3 views Spine lumbar 2 or 3 views DX Study: Lumbar spine, 3 views Clinical Indication: Pain with radiculopathy Comparison: None FINDINGS: Multiple views of the lumbar spine show 5 nonrib-bearing lumbar vertebra. No acute compression fracture or subluxation is seen. Mild marginal osteophytes throughout the lumbar spine are seen. There is moderate disc height loss and vacuum disc phenomena at L5-S1, compatible with moderate degenerative disc disease. Mild to moderate facet arthrosis in the lower lumbar spine is also noted. IMPRESSION: Mild to moderate degenerative change of the lower lumbar spine. SL: [id number] 10/01/2015 - - Read by: Wai Kaur MD Dictated Date/time: 10/01/15 02:10 Electronically Signed by: Wai Kaur MD 10/01/15 02:10 FINAL REPORT [facility] Spine cervical 2 or 3 view DX Spine cervical 2 or 3 view DX Study: Cervical spine, 4 views Clinical Indication: Pain with radiculopathy Comparison: None FINDINGS: Multiple views of the cervical spine show visualization through the C7 vertebral body on the lateral swimmer's view. No acute vertebral body height loss or subluxation is seen. Mild degenerative disc disease of the lower cervical spine at C5-C6 is seen with mild disc height loss and minimal marginal osteophyte formation. Odontoid process is intact. Prevertebral soft tissues are unremarkable. IMPRESSION: Mild degenerative change of the lower cervical spine without acute bony abnormality. SL: [id number] 10/01/2015 - - Read by: Wai Kaur MD Dictated Date/time: 10/01/15 02:11 Electronically Signed by: Wai Kaur MD 10/01/15 02:11 FINAL REPORT [facility] Barium swallow DX Barium swallow DX ESOPHAGRAM CLINICAL HISTORY: Dysphagia. TECHNIQUE: Double contrast exam with barium and air. FLUORO TIME: 5 seconds. FINDINGS: Swallowing and esophageal motility are within normal limits. The course and caliber of the esophagus are unremarkable. There is no evidence of obstruction, stricture, filling defect, extrinsic mass effect, diverticulum, or hiatal hernia. No gastroesophageal reflux was identified during intermittent fluoroscopy. IMPRESSION: No significant abnormality. 01/23/2015 - - Read by: Nir Dodson MD Dictated Date/time: 01/23/15 11:01 Electronically Signed by: Nir Dodson MD 01/23/15 11:02 FINAL REPORT [facility] Spine lumbar 2 or 3 views DX Spine lumbar 2 or 3 views DX Lumbosacral spine, 3 view: Exam reason: See Clinic indication backache AP, lateral and coned lateral views of the lumbar spine were obtained. Degenerative disc disease is present at L5-S1. Tiny Schmorls node deformities are noted at the inferior endplates of the L1 and L2 vertebral bodies. Limbus vertebrae is noted at T12. Lumbar vertebral body heights and interspaces are otherwise well-maintained. There is no acute fracture, dislocation or spondylolisthesis noted. Findings are similar to the previous exam, 07/22/2013. SL:12/18/2014 - - Read by: Adithya Quinonez MD Dictated Date/time: 12/18/14 19:18 Electronically Signed by: Adithya Quinonez MD 12/18/14 19:20 FINAL REPORT [facility] Knee series 3 views DX Knee series 3 views DX PROCEDURE: Left Knee series 3 views REASON FOR EXAM: See Clinic Indication CLINICAL INDICATION: Pain from a fall COMPARISON: None. FINDINGS: Diffuse osteopenia. No definite acute fracture or dislocation. No significant suprapatellar joint effusion is present. SL: 10/22/2014 - - Read by: Lokesh Rowell MD Dictated Date/time: 10/22/14 17:21 Electronically Signed by: Lokesh Rowell MD 10/22/14 17:22 FINAL REPORT [facility] CHEM PANEL Phosphorus 2.9 mg/dL 2.5 - 4.5 03/04/2014 [facility] CHEM PANEL Magnesium Lvl 2.2 mg/dL 1.8 - 2.4 03/04/2014 [facility] CHEM PANEL eGFR 86 mL/min/1.73m2 03/04/2014 1Result Comment: The eGFR is calculated using the CKD-EPI formula. In most young, healthy individuals the eGFR will be >90 mL/min/1.73m2. The eGFR declines with age. An eGFR of 60-89 may be normal in some populations, particularly the elderly, for whom the CKD-EPI formula has not been extensively validated. Use of the eGFR is not recommended in the following populations: Individuals with unstable creatinine concentrations, including patients and those with serious co-morbid conditions. Patients with extremes in muscle mass or diet. The data above are obtained from the National Kidney Disease Education Program (NKDEP) which additionally recommends that when the eGFR is used in patients with extremes of body mass index for purposes of drug dosing, the eGFR should be multiplied by the estimated BMI. [facility] CHEM PANEL Total Protein 6.7 g/dL 6.4 - 8.4 03/04/2014 [facility] CHEM PANEL ALT 25 unit/L 0 - 65 03/04/2014 [facility] CHEM PANEL AST 24 unit/L 0 - 37 03/04/2014 [facility] CHEM PANEL Albumin Lvl 3.4 g/dL 3.5 - 5.0 03/04/2014 [facility] CHEM PANEL Alk Phos 92 unit/L 39 - 136 03/04/2014 [facility] CHEM PANEL Bili Total 0.2 mg/dL 0.2 - 1.3 03/04/2014 [facility] CHEM PANEL Glucose Lvl 122 mg/dL 70 - 99 03/04/2014 2Interpretive Data: Adult reference range values reflect the clinical guidelines of the [place] [employer]. [facility] CHEM PANEL Sodium Lvl 140 meq/L 135 - 145 03/04/2014 [facility] CHEM PANEL BUN 25 mg/dL 7 - 22 03/04/2014 [facility] CHEM PANEL Creatinine Lvl 1.0 mg/dL 0.5 - 1.4 03/04/2014 [facility] CHEM PANEL Potassium Lvl 3.7 meq/L 3.5 - 5.1 03/04/2014 [facility] CHEM PANEL Chloride Lvl 107 meq/L 95 - 109 03/04/2014 [facility] CHEM PANEL CO2 30 meq/L 24 - 32 03/04/2014 [facility] CHEM PANEL Calcium Lvl 8.3 mg/dL 8.5 - 10.5 03/04/2014 [facility] CHEM PANEL AGAP 6.7 meq/L 10.0 - 20.0 03/04/2014 [facility] CHEM PANEL A/G Ratio 1.0 0.7 - 1.6 03/04/2014 [facility] CHEM PANEL B/C Ratio 25 6 - 25 03/04/2014 [facility] CHEM PANEL Globulin 3.3 g/dL 2.0 - 4.0 03/04/2014 [facility] HEMATOLOGY Lymphocytes # 3.0 K/CMM 1.0 - 5.5 03/04/2014 [facility] HEMATOLOGY Monocytes # 0.6 K/CMM 0.0 - 0.8 03/04/2014 [facility] HEMATOLOGY Eosinophils # 0.1 K/CMM 0.0 - 0.5 03/04/2014 [facility] HEMATOLOGY Monocytes 6.9 % 2.0 - 12.0 03/04/2014 [facility] HEMATOLOGY Eosinophils 0.8 % 0.0 - 4.0 03/04/2014 [facility] HEMATOLOGY Basophils 0.2 % 0.0 - 1.0 03/04/2014 [facility] HEMATOLOGY Segs-Bands # 5.3 K/CMM 1.5 - 8.1 03/04/2014 [facility] HEMATOLOGY Lymphocytes 33.1 % 20.0 - 40.0 03/04/2014 [facility] Segs 59.0 % 45.0 - 75.0 03/04/2014 [facility] RDW 13.5 % 11.5 - 14.5 03/04/2014 [facility] MPV 9.4 fL 7.4 - 10.4 03/04/2014 [facility] Platelet 151 K/CMM 133 - 450 03/04/2014 [facility] MCV 91.3 fL 80.0 - 94.0 03/04/2014 [facility] MCHC 34.1 g/dL 32.0 - 36.0 03/04/2014 [facility] MCH 31.1 pg 27.0 - 31.0 03/04/2014 [facility] WBC 8.9 K/CMM 3.7 - 10.4 03/04/2014 [facility] Hct 43.7 % 42.0 - 54.0 03/04/2014 [facility] Hgb 14.9 g/dL 14.0 - 18.0 03/04/2014 [facility] RBC 4.78 M/CMM 4.70 - 6.10 03/04/2014 [facility] Chest w contrast CT Chest w contrast CT CT CHEST WITH CONTRAST, WITH PULMONARY EMBOLUS PROTOCOL. INDICATION: Chest pain Images were obtained through the central chest at 3 mm intervals during bolus nonionic intravenous contrast administration, Omnipaque 100 cc, followed by the routine examination. Streak artifacts are produced by the large patient size. CT ANGIOGRAM: No pulmonary arterial filling defect is identified that would suggest pulmonary embolus. No mediastinal vascular abnormality is noted. CT CHEST: No pulmonary mass or airspace consolidation is identified. There is no hilar or mediastinal adenopathy, and no pleural or pericardial effusion is seen. Abundant mediastinal and epicardial fat is noted. The visualized portions of the upper abdomen are remarkable for fatty liver. IMPRESSION: 1. No evidence of pulmonary embolus or other acute abnormality. 2. Fatty liver. SL: 12 03/04/2014 - - Read by: Jonathan Akers MD Dictated Date/time: 03/04/14 04:01 Electronically Signed by: Jonathan Akers MD 03/04/14 04:05 FINAL REPORT [facility] Renal Stone CT Renal Stone CT CT ABDOMEN AND PELVIS WITHOUT CONTRAST, WITH RENAL STONE PROTOCOL. INDICATION: Right flank pain Images were obtained through the abdomen and pelvis at 5 mm intervals without contrast. Axial images with sagittal and coronal reconstructions were obtained. Image quality is compromised by large patient size which results in extensive streak artifacts. No urinary tract calculus, hydronephrosis or perinephric stranding is noted. The bladder is not remarkable the The lung bases are clear. There is fatty infiltration of the liver. The gallbladder, spleen, adrenals and pancreas are not remarkable. No intestinal lesion or mesenteric inflammatory change is noted. The appendix is normal for The prostate gland is not remarkable. No adenopathy or ascites is seen. IMPRESSION: 1. Limited examination. 2. No urinary tract pathology or other acute abnormality. 3. Fatty liver. SL: 03/04/2014 - - Read by: Jonathan Akers MD Dictated Date/time: 03/04/14 03:12 Electronically Signed by: Jonathan Akers MD 03/04/14 03:14 FINAL REPORT [facility] Chest 1view Chest 1view PORTABLE CHEST 03/04/2014 AT 0156 HOURS. INDICATION: Cough. COMPARISON: Chest 03/01/2014. Image quality is severely compromised by large patient size and portable technique. The patient is rotated towards the left. The cardiac silhouette is enlarged. The lungs are incompletely inflated. Retrocardiac portion of the left hemithorax is obscured by the cardiac apex. There are possible mild right perihilar congestive changes. SL: 03/04/2014 - - Read by: Jonathan Akers MD Dictated Date/time: 03/04/14 02:24 Electronically Signed by: Jonathan Akers MD 03/04/14 02:25 FINAL REPORT [facility] Neck soft tissue Neck soft tissue SOFT TISSUE NECK, 2 VIEWS. INDICATION: Foreign body ingestion. AP and lateral images demonstrate no distention of the hypopharynx. The epiglottis and prevertebral soft tissues are normal. No radiopaque foreign object is identified. A peanut would not be visualized radiographically. IMPRESSION: Negative examination. SL: 03/01/2014 - - Read by: Jonathan Akers MD Dictated Date/time: 03/01/14 23:49 Electronically Signed by: Jonathan Akers MD 03/01/14 23:51 FINAL REPORT [facility] 2 views Chest 2 views CHEST, PA AND LATERAL. INDICATION: Chest pain. COMPARISON: None. Image quality is compromised by large patient size. The cardiac silhouette is top normal in size. The mediastinum is not remarkable. The lungs are well expanded and appear clear. No vascular congestion or pleural effusion is seen. The skeleton is not remarkable. IMPRESSION: Negative chest. SL: 12 03/01/2014 - - Read by: Jonathan Akers MD Dictated Date/time: 03/01/14 23:48 Electronically Signed by: Jonathan Akers MD 03/01/14 23:49 FINAL REPORT [facility] CHEM PANEL eGFR 86 mL/min/1.73m2 03/01/2014 1Result Comment: The eGFR is calculated using the CKD-EPI formula. In most young, healthy individuals the eGFR will be >90 mL/min/1.73m2. The eGFR declines with age. An eGFR of 60-89 may be normal in some populations, particularly the elderly, for whom the CKD-EPI formula has not been extensively validated. Use of the eGFR is not recommended in the following populations: Individuals with unstable creatinine concentrations, including patients and those with serious co-morbid conditions. Patients with extremes in muscle mass or diet. The data above are obtained from the National Kidney Disease Education Program (NKDEP) which additionally recommends that when the eGFR is used in patients with extremes of body mass index for purposes of drug dosing, the eGFR should be multiplied by the estimated BMI. [facility] CHEM PANEL Bili Total 0.4 mg/dL 0.2 - 1.3 03/01/2014 [facility] CHEM PANEL Potassium Lvl 3.8 meq/L 3.5 - 5.1 03/01/2014 [facility] CHEM PANEL Sodium Lvl 136 meq/L 135 - 145 03/01/2014 [facility] CHEM PANEL Creatinine Lvl 1.0 mg/dL 0.5 - 1.4 03/01/2014 [facility] CHEM PANEL Glucose Lvl 131 mg/dL 70 - 99 03/01/2014 2Interpretive Data: Adult reference range values reflect the clinical guidelines of the [place] [employer]. [facility] CHEM PANEL Total Protein 8.0 g/dL 6.4 - 8.4 03/01/2014 [facility] CHEM PANEL Albumin Lvl 3.8 g/dL 3.5 - 5.0 03/01/2014 [facility] CHEM PANEL AST 17 unit/L 0 - 37 03/01/2014 [facility] CHEM PANEL ALT 23 unit/L 0 - 65 03/01/2014 [facility] CHEM PANEL Alk Phos 84 unit/L 39 - 136 03/01/2014 [facility] CHEM PANEL Calcium Lvl 8.6 mg/dL 8.5 - 10.5 03/01/2014 [facility] CHEM PANEL Chloride Lvl 102 meq/L 95 - 109 03/01/2014 [facility] CHEM PANEL CO2 28 meq/L 24 - 32 03/01/2014 [facility] CHEM PANEL BUN 17 mg/dL 7 - 22 03/01/2014 [facility] CHEM PANEL A/G Ratio 0.9 0.7 - 1.6 03/01/2014 [facility] CHEM PANEL AGAP 9.8 meq/L 10.0 - 20.0 03/01/2014 [facility] CHEM PANEL Globulin 4.2 g/dL 2.0 - 4.0 03/01/2014 [facility] CHEM PANEL B/C Ratio 17 6 - 25 03/01/2014 [facility] HEMATOLOGY Monocytes # 0.5 K/CMM 0.0 - 0.8 03/01/2014 [facility] HEMATOLOGY Lymphocytes # 2.0 K/CMM 1.0 - 5.5 03/01/2014 [facility] HEMATOLOGY Segs-Bands # 4.5 K/CMM 1.5 - 8.1 03/01/2014 [facility] HEMATOLOGY Eosinophils 3.3 % 0.0 - 4.0 03/01/2014 [facility] HEMATOLOGY Basophils 0.7 % 0.0 - 1.0 03/01/2014 [facility] HEMATOLOGY Lymphocytes 27.3 % 20.0 - 40.0 03/01/2014 [facility] HEMATOLOGY Monocytes 6.8 % 2.0 - 12.0 03/01/2014 [facility] HEMATOLOGY Segs 61.9 % 45.0 - 75.0 03/01/2014 [facility] HEMATOLOGY Eosinophils # 0.2 K/CMM 0.0 - 0.5 03/01/2014 [facility] HEMATOLOGY PTT 32.6 s 22.9 - 35.8 03/01/2014 4Interpretive Data: Heparin Therapeutic Range: 57 - 92 Seconds [facility] HEMATOLOGY PT 13.7 s 12.0 - 14.7 03/01/2014 [facility] HEMATOLOGY INR 1.05 0.85 - 1.17 03/01/2014 3Interpretive Data: RECOMMENDED RANGES FOR PROTIME INR: 2.0-3.0 for most medical and surgical thromboembolic states. 2.5-3.5 for artificial heart valves and recurrent embolism. INR SHOULD BE USED ONLY FOR PATIENTS ON STABLE ANTICOAGULANT THERAPY. [facility] HEMATOLOGY MPV 9.1 fL 7.4 - 10.4 03/01/2014 [facility] HEMATOLOGY Platelet 159 K/CMM 133 - 450 03/01/2014 [facility] MCHC 34.3 g/dL 32.0 - 36.0 03/01/2014 [facility] MCV 90.5 fL 80.0 - 94.0 03/01/2014 [facility] RDW 13.4 % 11.5 - 14.5 03/01/2014 [facility] MCH 31.0 pg 27.0 - 31.0 03/01/2014 [facility] HEMATOLOGY WBC 7.2 K/CMM 3.7 - 10.4 03/01/2014 [facility] Hct 45.0 % 42.0 - 54.0 03/01/2014 [facility] Hgb 15.5 g/dL 14.0 - 18.0 03/01/2014 [facility] RBC 4.98 M/CMM 4.70 - 6.10 03/01/2014 [facility] URINE AND STOOL UA Sq Epi None Seen 12/19/2013 [facility] URINE AND STOOL UA Mucus Few /LPF None Seen /LPF 12/19/2013 [facility] URINE AND STOOL UA WBC null 0 - 5 12/19/2013 [facility] URINE AND STOOL UA Leuk Est Negative (12/19/13 3:55 PM) Negative 12/19/2013 [facility] URINE AND STOOL UA Urobilinogen 2.0 mg/dL 0.1 - 1.0 12/19/2013 [facility] URINE AND STOOL UA RBC 2 /HPF 0 - 2 12/19/2013 [facility] URINE AND STOOL UA Bili Negative *NA* (12/19/13 3:55 PM) Negative 12/19/2013 [facility] URINE AND STOOL UA Nitrite Negative (12/19/13 3:55 PM) Negative 12/19/2013 [facility] URINE AND STOOL UA Blood Negative (12/19/13 3:55 PM) Negative 12/19/2013 [facility] URINE AND STOOL UA Turbidity Clear (12/19/13 3:55 PM) Clear 12/19/2013 [facility] URINE AND STOOL UA Spec Grav 1.019 <=1.030 12/19/2013 [facility] URINE AND STOOL UA Color Yellow *NA* (12/19/13 3:55 PM) Yellow 12/19/2013 [facility] URINE AND STOOL UA Ketones Negative mg/dL Negative mg/dL 12/19/2013 [facility] URINE AND STOOL UA Protein Negative mg/dL Negative mg/dL 12/19/2013 [facility] URINE AND STOOL UA Glucose Negative mg/dL Negative mg/dL 12/19/2013 [facility] URINE AND STOOL UA pH 5.0 5.0 - 8.0 12/19/2013 [facility] CHEM PANEL Amylase Lvl 47 unit/L 25 - 115 12/19/2013 [facility] CHEM PANEL Lipase Lvl 141 unit/L 73 - 393 12/19/2013 [facility] CHEM PANEL eGFR 98 mL/min/1.73m2 12/19/2013 1Result Comment: The eGFR is calculated using the CKD-EPI formula. In most young, healthy individuals the eGFR will be >90 mL/min/1.73m2. The eGFR declines with age. An eGFR of 60-89 may be normal in some populations, particularly the elderly, for whom the CKD-EPI formula has not been extensively validated. Use of the eGFR is not recommended in the following populations: Individuals with unstable creatinine concentrations, including patients and those with serious co-morbid conditions. Patients with extremes in muscle mass or diet. The data above are obtained from the National Kidney Disease Education Program (NKDEP) which additionally recommends that when the eGFR is used in patients with extremes of body mass index for purposes of drug dosing, the eGFR should be multiplied by the estimated BMI. [facility] CHEM PANEL BUN 15 mg/dL 7 - 22 12/19/2013 [facility] Glucose Lvl 130 mg/dL 70 - 99 12/19/2013 2Interpretive Data: Adult reference range values reflect the clinical guidelines of the [place] [employer]. [facility] CHEM PANEL Creatinine Lvl 0.9 mg/dL 0.5 - 1.4 12/19/2013 [facility] CHEM PANEL Potassium Lvl 3.9 meq/L 3.5 - 5.1 12/19/2013 [facility] CHEM PANEL Calcium Lvl 9.0 mg/dL 8.5 - 10.5 12/19/2013 [facility] CHEM PANEL Total Protein 7.7 g/dL 6.4 - 8.4 12/19/2013 [facility] CHEM PANEL CO2 27 meq/L 24 - 32 12/19/2013 [facility] CHEM PANEL Chloride Lvl 100 meq/L 95 - 109 12/19/2013 [facility] CHEM PANEL Sodium Lvl 136 meq/L 135 - 145 12/19/2013 [facility] CHEM PANEL ALT 23 unit/L 0 - 65 12/19/2013 [facility] CHEM PANEL Albumin Lvl 3.5 g/dL 3.5 - 5.0 12/19/2013 [facility] CHEM PANEL AST 20 unit/L 0 - 37 12/19/2013 [facility] CHEM PANEL Alk Phos 87 unit/L 39 - 136 12/19/2013 [facility] CHEM PANEL Bili Total 0.4 mg/dL 0.2 - 1.3 12/19/2013 [facility] CHEM PANEL B/C Ratio 17 6 - 25 12/19/2013 [facility] CHEM PANEL A/G Ratio 0.8 0.7 - 1.6 12/19/2013 [facility] CHEM PANEL Globulin 4.2 g/dL 2.0 - 4.0 12/19/2013 [facility] CHEM PANEL AGAP 12.9 meq/L 10.0 - 20.0 12/19/2013 [facility] HEMATOLOGY Lymphocytes # 1.7 K/CMM 1.0 - 5.5 12/19/2013 [facility] Monocytes # 0.6 K/CMM 0.0 - 0.8 12/19/2013 [facility] HEMATOLOGY Eosinophils # 0.2 K/CMM 0.0 - 0.5 12/19/2013 [facility] HEMATOLOGY Segs 62.0 % 45.0 - 75.0 12/19/2013 [facility] Monocytes 9.2 % 2.0 - 12.0 12/19/2013 [facility] HEMATOLOGY Eosinophils 2.8 % 0.0 - 4.0 12/19/2013 [facility] Lymphocytes 25.5 % 20.0 - 40.0 12/19/2013 [facility] HEMATOLOGY Basophils 0.5 % 0.0 - 1.0 12/19/2013 [facility] HEMATOLOGY Segs-Bands # 4.1 K/CMM 1.5 - 8.1 12/19/2013 [facility] HEMATOLOGY RBC X 10x6 4.90 M/CMM 4.70 - 6.10 12/19/2013 [facility] Hgb 14.8 g/dL 14.0 - 18.0 12/19/2013 [facility] HEMATOLOGY Hct 43.4 % 42.0 - 54.0 12/19/2013 [facility] MCHC 34.0 g/dL 32.0 - 36.0 12/19/2013 [facility] MCH 30.1 pg 27.0 - 31.0 12/19/2013 [facility] MCV 88.5 fL 80.0 - 94.0 12/19/2013 [facility] Platelet 158 K/CMM 133 - 450 12/19/2013 [facility] MPV 8.8 fL 7.4 - 10.4 12/19/2013 [facility] RDW 13.4 % 11.5 - 14.5 12/19/2013 [facility] WBC X 10x3 6.6 K/CMM 3.7 - 10.4 12/19/2013 [facility] Chest 2 views Chest 2 views CHEST 2 VIEWS HX: Trauma COMPARISON: 01/04/2007 at 15: 50 FINDINGS: The lungs are free of consolidation or pleural effusion and the mediastinal silhouette is mildly prominent in size. The visualized osseous structures are grossly negative. IMPRESSION: Cardiac silhouette mildly prominent. Unchanged from prior study. No acute abnormality noted. SL: 07/22/2013 - - Read by: Bubba Sandoval Dictated Date/time: 07/22/13 18:39 Electronically Signed by: Bubba Sandoval MD 07/22/13 18:40 FINAL REPORT [facility] Knee series Knee series Examination: Left knee, 4 views History: Trauma Comparison: None. Findings: Multiple views of the left knee show no acute bony fracture or joint dislocation. No significant joint effusion is seen. IMPRESSION: No acute bony abnormality of the left knee. SL: 07/22/2013 - - Read by: Wai Kaur Dictated Date/time: 07/22/13 18:41 Electronically Signed by: Wai Kaur MD 07/22/13 18:42 FINAL REPORT [facility] Spine lumbar 2 or 3 views Spine lumbar 2 or 3 views LUMBAR SPINE SERIES --3 VIEWS HX: Trauma FINDINGS: Views of the lumbar spine reveal no evidence of compression deformity or subluxation. Vertebral body heights and disc space intervals are preserved. Five lumbar-type vertebral bodies are present. IMPRESSION: Negative lumbar spine series. SL: 07/22/2013 - - Read by: Bubba Sandoval Dictated Date/time: 07/22/13 18:42 Electronically Signed by: Bubba Sandoval MD 07/22/13 18:42 FINAL REPORT [facility] Spine thoracic 3 views Spine thoracic 3 views THORACIC SPINE SERIES:--3 Views HX: Trauma FINDINGS: Vertebral alignment and architecture are normal. Intervertebral disc spaces are maintained. The pedicles and paraspinal soft tissues are intact. At the level of the T12 vertebral body there is a small irregularity in the anterior aspect of the superior endplate. This likely represents a Schmorl's node and is probably chronic. IMPRESSION: No definite acute abnormality identified. SL: 07/22/2013 - - Read by: Bubba Sandoval Dictated Date/time: 07/22/13 18:40 Electronically Signed by: Bubba Sandoval MD 07/22/13 18:41 FINAL REPORT [facility] Shoulder series Shoulder series LEFT SHOULDER -- 3 VIEWS HX: Trauma COMMENT: The left shoulder was evaluated in internal and external rotation. A scapular Y-view was also obtained. The glenohumeral and acromioclavicular joints are intact. There is no evidence of fracture, dislocation, degenerative change, or other osteoarticular abnormality. CONCLUSION: 1. Negative left shoulder. SL: 07/22/2013 - - Read by: Bubba Sandoval Dictated Date/time: 07/22/13 18:40 Electronically Signed by: Bubba Sandoval MD 07/22/13 18:40 FINAL REPORT [facility] Ankle 3 views Ankle 3 views Examination: Right ankle, 3 views History: Trauma Comparison: None. Findings: Multiple views of the right ankle show no acute bony fracture or joint dislocation. Ankle mortise is congruent. The soft tissues are unremarkable. IMPRESSION: No acute bony abnormality of the right ankle. SL: 07/22/2013 - - Read by: Wai Kaur Dictated Date/time: 07/22/13 18:41 Electronically Signed by: Wai Kaur MD 07/22/13 18:41 FINAL REPORT [facility] Spine cervical wo contrast CT (ER) Spine cervical wo contrast CT (ER) CERVICAL SPINE CT WITHOUT CONTRAST CLINICAL HX: Trauma COMMENTS: Axially oriented 2.[address] images were obtained through the entire cervical spine, without contrast. Sagittal and coronal reformations are also provided. FINDINGS: No fracture, malalignment, or other acute bony abnormality is identified. No soft tissue abnormality is identified. IMPRESSION: No acute abnormality is identified. SL: 07/22/2013 - - Read by: Bubba Sandoval Dictated Date/time: 07/22/13 17:22 Electronically Signed by: Bubba Sandoval MD 07/22/13 17:23 FINAL REPORT [facility] CHEMISTRY AGAP 11.4 meq/L 10.0 - 20.0 03/15/2013 Normal [facility] CHEMISTRY eGFR 103 mL/min/1.73m2 03/15/2013 NA 1Result Comment: The eGFR is calculated using the CKD-EPI formula. In most young, healthy individuals the eGFR will be >90 mL/min/1.73m2. The eGFR declines with age. An eGFR of 60-89 may be normal in some populations, particularly the elderly, for whom the CKD-EPI formula has not been extensively validated. Use of the eGFR is not recommended in the following populations: Individuals with unstable creatinine concentrations, including patients and those with serious co-morbid conditions. Patients with extremes in muscle mass or diet. The data above are obtained from the National Kidney Disease Education Program (NKDEP) which additionally recommends that when the eGFR is used in patients with extremes of body mass index for purposes of drug dosing, the eGFR should be multiplied by the estimated BMI. [facility] CHEMISTRY Calcium Lvl 8.7 mg/dL 8.5 - 10.5 03/15/2013 Normal [facility] CHEMISTRY CO2 31 meq/L 24 - 32 03/15/2013 Normal [facility] CHEMISTRY Creatinine Lvl 0.8 mg/dL 0.5 - 1.4 03/15/2013 Normal [facility] CHEMISTRY BUN 12 mg/dL 7 - 22 03/15/2013 Normal [facility] CHEMISTRY Glucose Lvl 108 mg/dL 70 - 99 03/15/2013 [place] 2Interpretive Data: Adult reference range values reflect the clinical guidelines of the [place] [employer]. [facility] CHEMISTRY Potassium Lvl 4.4 meq/L 3.5 - 5.1 03/15/2013 Normal [facility] CHEMISTRY Sodium Lvl 139 meq/L 135 - 145 03/15/2013 Normal [facility] CHEMISTRY Chloride Lvl 101 meq/L 95 - 109 03/15/2013 Normal [facility] HEMATOLOGY Platelet 142 K/CMM 133 - 450 03/15/2013 Normal [facility] HEMATOLOGY MPV 8.9 fL 7.4 - 10.4 03/15/2013 Normal [facility] HEMATOLOGY RBC 5.05 M/CMM 4.70 - 6.10 03/15/2013 Normal [facility] HEMATOLOGY WBC 7.3 K/CMM 3.7 - 10.4 03/15/2013 Normal [facility] HEMATOLOGY Hgb 15.6 g/dL 14.0 - 18.0 03/15/2013 Normal [facility] HEMATOLOGY Hct 47.7 % 42.0 - 54.0 03/15/2013 Normal [facility] MCH 31.0 pg 27.0 - 31.0 03/15/2013 Normal [facility] HEMATOLOGY MCV 94.5 fL 80.0 - 94.0 03/15/2013 HI [facility] HEMATOLOGY MCHC 32.8 g/dL 32.0 - 36.0 03/15/2013 Normal [facility] RDW 13.1 % 11.5 - 14.5 03/15/2013 Normal [facility] Lymphocytes 22.3 % 20.0 - 40.0 03/15/2013 Normal [facility] Eosinophils 3.4 % 0.0 - 4.0 03/15/2013 Normal [facility] Monocytes 6.6 % 2.0 - 12.0 03/15/2013 Normal [facility] HEMATOLOGY Segs-Bands # 4.9 K/CMM 1.5 - 8.1 03/15/2013 Normal [facility] Basophils 1.0 % 0.0 - 1.0 03/15/2013 Normal [facility] Lymphocytes # 1.6 K/CMM 1.0 - 5.5 03/15/2013 Normal [facility] HEMATOLOGY Eosinophils # 0.2 K/CMM 0.0 - 0.5 03/15/2013 Normal [facility] Monocytes # 0.5 K/CMM 0.0 - 0.8 03/15/2013 Normal [facility] Basophils # 0.1 K/CMM 0.0 - 0.2 03/15/2013 Normal [facility] Segs 66.7 % 45.0 - 75.0 03/15/2013 Normal [facility] Neck soft tissue w contrast CT Neck soft tissue w contrast CT NECK SOFT TISSUE W CONTRAST CT HX: Neck Pain; chicken bone! COMPARISON: NONE FINDINGS: Examination is performed from the skull base through the thoracic aortic arch after IV contrast administration. There is extensive mucosal thickening in the right maxillary antrum consistent with sinusitis which may be chronic. The left sphenoid air cell contains a small air-fluid level. The nasopharynx is clear. The parapharyngeal fat is preserved. The parotid and submaxillary glands are bilaterally symmetric and within normal limits. At the level of the palatine tonsils there is a density on the left which may represent a small calcification at the margin of the left palatine tonsil. The hypopharynx is within normal limits with normal appearance of the vallecular and pyriform spaces. The laryngeal structures are grossly normal. Sagittal and coronal reformatted views have been obtained demonstrating some mild prominence of the palatine tonsils bilaterally. No calcifications are identified on the coronal and sagittal images. Comparison of the current examination is made with the previous study dated 04/17/2009. No definite calcification is identified at the anterior margin of the left tonsil on the previous exam. No abnormality seen at this level on recent radiographic study of the neck. IMPRESSION: 1. Prominent appearance of the palatine tonsils bilaterally. 2. Small density at the anterior margin of the left palatine tonsil measures approximately 2.5 mm in diameter. This is only identified on the axial views and is not confirmed on the sagittal and coronal reformatted images. Findings could represent a small fragment of bone or calcification from previous infection. SL: 12 03/15/2013 - - Read by: Bubba Sandoval Dictated Date/time: 03/15/13 05:47 Electronically Signed by: Bubba Sandoval MD 03/15/13 05:55 FINAL REPORT [facility] Vital Signs Vital Sign Value Date Comments Source Systolic (mm Hg) 117 08/27/2018 [facility] Diastolic (mm Hg) 86 08/27/2018 [facility] Heart Rate 75 08/27/2018 [facility] Temperature Oral (F) 36.67 [place] 08/27/2018 [facility] Respitory Rate 18 08/27/2018 [facility] Height 172.7 cm 08/27/2018 [facility] Weight 117.935 08/27/2018 [facility] Systolic (mm Hg) 125 07/05/2018 [facility] Diastolic (mm Hg) 85 07/05/2018 [facility] Heart Rate 79 07/05/2018 [facility] Temperature Oral (F) 36.67 [place] 07/05/2018 [facility] Respitory Rate 18 07/05/2018 [facility] Height 172.7 cm 07/05/2018 [facility] Weight 116.574 07/05/2018 [facility] Systolic (mm Hg) 131 06/04/2018 [facility] Diastolic (mm Hg) 86 06/04/2018 [facility] Heart Rate 101 06/04/2018 [facility] Temperature Oral (F) 37 [place] 06/04/2018 [facility] Respitory Rate 22 06/04/2018 [facility] Height 167.6 cm 06/04/2018 [facility] Weight 114.579 06/04/2018 [facility] Systolic (mm Hg) 128 05/11/2018 [facility] Diastolic (mm Hg) 69 05/11/2018 [facility] Temperature Oral (F) 98.5 F 05/11/2018 [facility] Heart Rate 77 05/11/2018 [facility] Respitory Rate 18 05/11/2018 [facility] Temperature Oral (F) 98.5 F 05/11/2018 [facility] Respitory Rate 18 05/11/2018 [facility] Systolic (mm Hg) 118 05/11/2018 [facility] Diastolic (mm Hg) 79 05/11/2018 [facility] Heart Rate 78 05/11/2018 [facility] Systolic (mm Hg) 114 05/11/2018 [facility] Diastolic (mm Hg) 77 05/11/2018 [facility] Heart Rate 73 05/11/2018 [facility] Respitory Rate 18 05/11/2018 [facility] Temperature Oral (F) 98.4 F 05/11/2018 [facility] Weight 111.364 05/10/2018 [facility] Systolic (mm Hg) 120 04/30/2018 [facility] Diastolic (mm Hg) 78 04/30/2018 [facility] Heart Rate 79 04/30/2018 [facility] Temperature Oral (F) 36.56 [place] 04/30/2018 [facility] Respitory Rate 19 04/30/2018 [facility] Height 169 cm 04/30/2018 [facility] Weight 109.408 04/30/2018 [facility] BMI Calculated 38.31 04/30/2018 [facility] Systolic (mm Hg) 140 04/02/2018 [facility] Diastolic (mm Hg) 80 04/02/2018 [facility] Systolic (mm Hg) 128 04/01/2018 [facility] Respitory Rate 16 04/01/2018 [facility] Diastolic (mm Hg) 82 04/01/2018 [facility] Heart Rate 62 04/01/2018 [facility] Temperature Oral (F) 98.1 F 04/01/2018 [facility] Temperature Oral (F) 98.7 F 04/01/2018 [facility] Heart Rate 79 04/01/2018 [facility] Respitory Rate 18 04/01/2018 [facility] Systolic (mm Hg) 131 04/01/2018 [facility] Diastolic (mm Hg) 72 04/01/2018 [facility] Systolic (mm Hg) 112 03/30/2018 [facility] Diastolic (mm Hg) 79 03/30/2018 [facility] Heart Rate 76 03/30/2018 [facility] Temperature Oral (F) 36.94 [place] 03/30/2018 [facility] Respitory Rate 20 03/30/2018 [facility] Height 172.7 cm 03/30/2018 [facility] Weight 108.863 03/30/2018 [facility] BMI Calculated 36.49 03/30/2018 [facility] BMI Calculated 34.28 03/05/2018 [facility] Weight 102.273 03/05/2018 [facility] Height 172.72 cm 03/05/2018 [facility] Respitory Rate 20 03/05/2018 [facility] Heart Rate 71 03/05/2018 [facility] Systolic (mm Hg) 119 03/05/2018 [facility] Diastolic (mm Hg) 82 03/05/2018 [facility] Heart Rate 68 02/24/2018 [facility] Respitory Rate 19 02/24/2018 [facility] Temperature Oral (F) 98.3 F 02/24/2018 [facility] Systolic (mm Hg) 128 02/24/2018 [facility] Diastolic (mm Hg) 81 02/24/2018 [facility] Respitory Rate 18 02/24/2018 [facility] Heart Rate 55 02/24/2018 [facility] Systolic (mm Hg) 147 02/24/2018 [facility] Diastolic (mm Hg) 87 02/24/2018 [facility] Temperature Oral (F) 98.3 F 02/24/2018 [facility] Respitory Rate 20 02/24/2018 [facility] Height 172.72 cm 02/24/2018 [facility] BMI Calculated 34.28 02/24/2018 [facility] Weight 102.273 02/24/2018 [facility] Temperature Oral (F) 98.2 F 02/24/2018 [facility] Systolic (mm Hg) 133 02/24/2018 [facility] Diastolic (mm Hg) 94 02/24/2018 [facility] Heart Rate 85 02/24/2018 [facility] Height 172.72 cm 02/24/2018 [facility] BMI Calculated 34.28 02/24/2018 [facility] Weight 102.273 02/24/2018 [facility] Systolic (mm Hg) 113 02/22/2018 [facility] Diastolic (mm Hg) 73 02/22/2018 [facility] Heart Rate 83 02/22/2018 [facility] Temperature Oral (F) 36.56 [place] 02/22/2018 [facility] Respitory Rate 20 02/22/2018 [facility] Height 172.7 cm 02/22/2018 [facility] Weight 96.616 02/22/2018 [facility] BMI Calculated 32.39 02/22/2018 [facility] Respitory Rate 18 02/13/2018 [facility] Temperature Oral (F) 98.2 F 02/13/2018 [facility] Systolic (mm Hg) 150 02/13/2018 [facility] Diastolic (mm Hg) 89 02/13/2018 [facility] Systolic (mm Hg) 148 02/13/2018 [facility] Diastolic (mm Hg) 93 02/13/2018 [facility] Respitory Rate 18 02/13/2018 [facility] Systolic (mm Hg) 166 02/13/2018 [facility] Diastolic (mm Hg) 84 02/13/2018 [facility] Respitory Rate 18 02/13/2018 [facility] Temperature Oral (F) 98.2 F 02/13/2018 [facility] Heart Rate 74 02/13/2018 [facility] Temperature Oral (F) 97.6 F 02/13/2018 [facility] Heart Rate 75 02/13/2018 [facility] Heart Rate 61 02/12/2018 [facility] Weight 102.273 02/12/2018 [facility] Weight 104.091 02/02/2018 [facility] Height 172.72 cm 02/02/2018 [facility] BMI Calculated 34.89 02/02/2018 [facility] Heart Rate 78 02/02/2018 [facility] Systolic (mm Hg) 117 02/02/2018 [facility] Diastolic (mm Hg) 63 02/02/2018 [facility] Respitory Rate 18 01/16/2018 [facility] Heart Rate 77 01/16/2018 [facility] Systolic (mm Hg) 131 01/16/2018 [facility] Diastolic (mm Hg) 78 01/16/2018 [facility] Temperature Oral (F) 98.7 F 01/16/2018 [facility] Systolic (mm Hg) 121 01/16/2018 [facility] Diastolic (mm Hg) 77 01/16/2018 [facility] Temperature Oral (F) 98.7 F 01/16/2018 [facility] Respitory Rate 18 01/16/2018 [facility] Heart Rate 88 01/16/2018 [facility] Height 172.72 cm 01/15/2018 [facility] Weight 102.273 01/15/2018 [facility] BMI Calculated 34.28 01/15/2018 [facility] Temperature Oral (F) 98.7 F 01/15/2018 [facility] Respitory Rate 18 01/15/2018 [facility] Heart Rate 88 01/15/2018 [facility] Systolic (mm Hg) 110 01/15/2018 [facility] Diastolic (mm Hg) 76 01/15/2018 [facility] Systolic (mm Hg) 153 01/09/2018 [facility] Diastolic (mm Hg) 87 01/09/2018 [facility] Heart Rate 75 01/09/2018 [facility] Respitory Rate 20 01/09/2018 [facility] Systolic (mm Hg) 148 01/09/2018 [facility] Diastolic (mm Hg) 10 01/09/2018 [facility] Respitory Rate 20 01/09/2018 [facility] Heart Rate 68 01/09/2018 [facility] Temperature Oral (F) 98.6 F 01/09/2018 [facility] Respitory Rate 18 01/09/2018 [facility] Heart Rate 64 01/09/2018 [facility] Systolic (mm Hg) 129 01/09/2018 [facility] Diastolic (mm Hg) 76 01/09/2018 [facility] Weight 103.182 01/08/2018 [facility] Temperature Oral (F) 99 F 01/08/2018 [facility] Systolic (mm Hg) 132 01/02/2018 [facility] Diastolic (mm Hg) 79 01/02/2018 [facility] Respitory Rate 20 01/02/2018 [facility] Systolic (mm Hg) 129 01/02/2018 [facility] [facility] Diastolic (mm Hg) 79 01/02/2018 [facility] Respitory Rate 20 01/02/2018 [facility] Heart Rate 80 01/02/2018 [facility] Systolic (mm Hg) 118 01/02/2018 [facility] Diastolic (mm Hg) 65 01/02/2018 [facility] Temperature Oral (F) 98 F 01/02/2018 [facility] Respitory Rate 28 01/02/2018 [facility] BMI Calculated 37.76 10/27/2017 [facility] Weight 112.636 10/27/2017 [facility] Height 172.72 cm 10/27/2017 [facility] Systolic (mm Hg) 112 10/27/2017 [facility] Diastolic (mm Hg) 73 10/27/2017 [facility] Heart Rate 76 10/27/2017 [facility] Respitory Rate 20 10/27/2017 [facility] Weight 115.909 08/25/2017 [facility] BMI Calculated 38.85 08/25/2017 [facility] Height 172.72 cm 08/25/2017 [facility] Systolic (mm Hg) 130 08/25/2017 [facility] Diastolic (mm Hg) 86 08/25/2017 [facility] Heart Rate 79 08/25/2017 [facility] Respitory Rate 20 08/25/2017 [facility] Respitory Rate 20 08/17/2017 [facility] Systolic (mm Hg) 137 08/17/2017 [facility] Diastolic (mm Hg) 86 08/17/2017 [facility] Temperature Oral (F) 98.1 F 08/17/2017 [facility] Systolic (mm Hg) 141 08/17/2017 [facility] Diastolic (mm Hg) 91 08/17/2017 [facility] Respitory Rate 18 08/17/2017 [facility] Systolic (mm Hg) 155 08/17/2017 [facility] Diastolic (mm Hg) 92 08/17/2017 [facility] Respitory Rate 20 08/17/2017 [facility] BMI Calculated 39.31 08/17/2017 [facility] Weight 117.273 08/17/2017 [facility] Height 172.72 cm 08/17/2017 [facility] Temperature Oral (F) 98.2 F 08/17/2017 [facility] Heart Rate 76 08/17/2017 [facility] Systolic (mm Hg) 127 07/27/2017 [facility] Diastolic (mm Hg) 86 07/27/2017 [facility] Systolic (mm Hg) 133 07/27/2017 [facility] Diastolic (mm Hg) 86 07/27/2017 [facility] Respitory Rate 15 07/27/2017 [facility] Systolic (mm Hg) 132 07/27/2017 [facility] Diastolic (mm Hg) 80 07/27/2017 [facility] Respitory Rate 15 07/27/2017 [facility] Respitory Rate 14 07/27/2017 [facility] Heart Rate 82 07/27/2017 [facility] BMI Calculated 41.14 07/27/2017 [facility] Height 172.72 cm 07/27/2017 [facility] Weight 122.727 07/27/2017 [facility] Weight 122.727 07/21/2017 [facility] BMI Calculated 41.14 07/21/2017 [facility] Height 172.72 cm 07/21/2017 [facility] Weight 122.727 07/17/2017 [facility] BMI Calculated 41.14 07/17/2017 [facility] Heart Rate 77 07/17/2017 [facility] Respitory Rate 16 07/17/2017 [facility] Systolic (mm Hg) 149 07/17/2017 [facility] Diastolic (mm Hg) 94 07/17/2017 [facility] Height 172.72 cm 07/17/2017 [facility] Temperature Oral (F) 97.5 F 07/10/2017 [facility] Respitory Rate 22 07/10/2017 [facility] Systolic (mm Hg) 143 07/10/2017 [facility] Diastolic (mm Hg) 91 07/10/2017 [facility] Respitory Rate 22 07/10/2017 [facility] Systolic (mm Hg) 147 07/10/2017 [facility] Diastolic (mm Hg) 80 07/10/2017 [facility] Systolic (mm Hg) 175 07/10/2017 [facility] Diastolic (mm Hg) 100 07/10/2017 [facility] Respitory Rate 22 07/10/2017 [facility] Temperature Oral (F) 96.8 F 07/10/2017 [facility] Weight 138.636 07/10/2017 [facility] BMI Calculated 46.47 07/10/2017 [facility] Heart Rate 90 07/10/2017 [facility] Height 172.72 cm 07/10/2017 [facility] Systolic (mm Hg) 129 06/17/2017 [facility] Diastolic (mm Hg) 80 06/17/2017 [facility] Respitory Rate 18 06/17/2017 [facility] Systolic (mm Hg) 174 06/17/2017 [facility] Diastolic (mm Hg) 98 06/17/2017 [facility] Temperature Oral (F) 98 F 06/17/2017 [facility] Systolic (mm Hg) 139 06/17/2017 [facility] Diastolic (mm Hg) 83 06/17/2017 [facility] Respitory Rate 20 06/17/2017 [facility] Heart Rate 80 06/17/2017 [facility] Respitory Rate 20 06/17/2017 [facility] Weight 122.727 06/16/2017 [facility] Height 172.72 cm 06/16/2017 [facility] BMI Calculated 41.14 06/16/2017 [facility] Temperature Oral (F) 98.2 F 06/16/2017 [facility] Heart Rate 86 06/16/2017 [facility] BMI Calculated 26.82 06/02/2017 [facility] Weight 80 06/02/2017 [facility] Height 172.72 cm 06/02/2017 [facility] Heart Rate 84 06/02/2017 [facility] Respitory Rate 16 06/02/2017 [facility] Systolic (mm Hg) 123 06/02/2017 [facility] Diastolic (mm Hg) 87 06/02/2017 [facility] Systolic (mm Hg) 129 04/24/2017 [facility] Diastolic (mm Hg) 90 04/24/2017 [facility] 27 04/24/2017 [facility] Systolic (mm Hg) 145 04/23/2017 [facility] Diastolic (mm Hg) 90 04/23/2017 [facility] Respitory Rate 17 04/23/2017 [facility] Respitory Rate 21 04/23/2017 [facility] Systolic (mm Hg) 117 04/23/2017 [facility] Diastolic (mm Hg) 105 04/23/2017 [facility] Heart Rate 89 04/23/2017 [facility] BMI Calculated 43.36 04/23/2017 [facility] Weight 118.182 04/23/2017 [facility] Height 165.1 cm 04/23/2017 [facility] Heart Rate 90 04/23/2017 [facility] Heart Rate 87 04/21/2017 [facility] Respitory Rate 20 04/21/2017 [facility] Systolic (mm Hg) 167 04/21/2017 [facility] Diastolic (mm Hg) 81 04/21/2017 [facility] Temperature Oral (F) 98.1 F 04/21/2017 [facility] Respitory Rate 22 04/21/2017 [facility] Respitory Rate 20 04/21/2017 [facility] Systolic (mm Hg) 133 04/21/2017 [facility] Diastolic (mm Hg) 88 04/21/2017 [facility] Heart Rate 71 04/21/2017 [facility] Temperature Oral (F) 98.2 F 04/21/2017 [facility] Systolic (mm Hg) 132 04/21/2017 [facility] Heart Rate 78 04/21/2017 [facility] Temperature Oral (F) 98.6 F 04/21/2017 [facility] Diastolic (mm Hg) 80 04/21/2017 [facility] Height 172.72 cm 04/19/2017 [facility] Weight 135.909 04/19/2017 [facility] BMI Calculated 45.56 04/19/2017 [facility] Height 172.72 cm 04/19/2017 [facility] Temperature Oral (F) 98 F 04/08/2017 [facility] Systolic (mm Hg) 130 04/08/2017 [facility] Diastolic (mm Hg) 70 04/08/2017 [facility] Respitory Rate 19 04/08/2017 [facility] Respitory Rate 26 04/08/2017 [facility] Temperature Oral (F) 98 F 04/08/2017 [facility] Systolic (mm Hg) 132 04/08/2017 [facility] Diastolic (mm Hg) 78 04/08/2017 [facility] Respitory Rate 20 04/08/2017 [facility] Systolic (mm Hg) 134 04/08/2017 [facility] Diastolic (mm Hg) 71 04/08/2017 [facility] Heart Rate 74 04/08/2017 [facility] Temperature Oral (F) 98.1 F 04/08/2017 [facility] Height 172.72 cm 04/07/2017 [facility] BMI Calculated 46.47 04/07/2017 [facility] Weight 138.636 04/07/2017 [facility] Heart Rate 86 04/07/2017 [facility] Systolic (mm Hg) 147 03/25/2017 [facility] Diastolic (mm Hg) 71 03/25/2017 [facility] Heart Rate 72 03/25/2017 [facility] Temperature Oral (F) 98.1 F 03/25/2017 [facility] Respitory Rate 18 03/25/2017 [facility] Systolic (mm Hg) 124 03/25/2017 [facility] Diastolic (mm Hg) 78 03/25/2017 [facility] Respitory Rate 18 03/25/2017 [facility] Respitory Rate 18 03/25/2017 [facility] Systolic (mm Hg) 119 03/25/2017 [facility] Diastolic (mm Hg) 74 03/25/2017 [facility] Temperature Oral (F) 97.8 F 03/25/2017 [facility] Heart Rate 73 03/25/2017 [facility] Heart Rate 82 03/25/2017 [facility] Temperature Oral (F) 97.4 F 03/25/2017 [facility] BMI Calculated 46.78 03/25/2017 [facility] Height 172.72 cm 03/25/2017 [facility] Weight 139.545 03/25/2017 [facility] Weight 139.545 03/24/2017 [facility] BMI Calculated 46.78 03/24/2017 [facility] Height 172.72 cm 03/24/2017 [facility] Respitory Rate 18 03/10/2017 [facility] Temperature Oral (F) 98 F 03/10/2017 [facility] Heart Rate 77 03/10/2017 [facility] Systolic (mm Hg) 139 03/10/2017 [facility] Diastolic (mm Hg) 85 03/10/2017 [facility] Systolic (mm Hg) 131 03/10/2017 [facility] Diastolic (mm Hg) 89 03/10/2017 [facility] Respitory Rate 18 03/10/2017 [facility] Heart Rate 95 03/10/2017 [facility] Temperature Oral (F) 98.1 F 03/10/2017 [facility] Systolic (mm Hg) 135 03/10/2017 [facility] Diastolic (mm Hg) 87 03/10/2017 [facility] Respitory Rate 18 03/10/2017 [facility] Heart Rate 55 03/10/2017 [facility] Temperature Oral (F) 97.6 F 03/10/2017 [facility] Weight 142.727 03/10/2017 [facility] BMI Calculated 47.84 03/10/2017 [facility] Height 172.72 cm 03/10/2017 [facility] Weight 139.091 03/09/2017 [facility] Height 172.72 cm 03/09/2017 [facility] BMI Calculated 46.62 03/09/2017 [facility] Temperature Oral (F) 98 F 03/07/2017 [facility] Systolic (mm Hg) 130 03/07/2017 [facility] Diastolic (mm Hg) 70 03/07/2017 [facility] Respitory Rate 18 03/07/2017 [facility] Heart Rate 84 03/07/2017 [facility] Respitory Rate 18 03/07/2017 [facility] Heart Rate 82 03/07/2017 [facility] Systolic (mm Hg) 131 03/07/2017 [facility] Diastolic (mm Hg) 75 03/07/2017 [facility] Systolic (mm Hg) 140 03/07/2017 [facility] Diastolic (mm Hg) 70 03/07/2017 [facility] Heart Rate 86 03/07/2017 [facility] Respitory Rate 17 03/07/2017 [facility] Temperature Oral (F) 98 F 03/07/2017 [facility] Weight 142.727 03/07/2017 [facility] BMI Calculated 47.84 03/07/2017 [facility] Temperature Oral (F) 98.4 F 03/07/2017 [facility] Height 172.72 cm 03/07/2017 [facility] Weight 135 03/05/2017 [facility] Height 172.72 cm 03/05/2017 [facility] BMI Calculated 45.25 03/05/2017 [facility] Systolic (mm Hg) 123 03/05/2017 [facility] Diastolic (mm Hg) 84 03/05/2017 [facility] Respitory Rate 18 03/05/2017 [facility] Respitory Rate 19 03/05/2017 [facility] Systolic (mm Hg) 123 03/05/2017 [facility] Diastolic (mm Hg) 82 03/05/2017 [facility] Systolic (mm Hg) 130 03/05/2017 [facility] Diastolic (mm Hg) 86 03/05/2017 [facility] Respitory Rate 16 03/05/2017 [facility] Temperature Oral (F) 97.8 F 03/05/2017 [facility] Heart Rate 76 03/05/2017 [facility] Temperature Oral (F) 97.4 F 03/05/2017 [facility] Heart Rate 61 03/05/2017 [facility] Temperature Oral (F) 97.9 F 03/05/2017 [facility] Heart Rate 66 03/05/2017 [facility] Weight 142.727 03/05/2017 [facility] Height 172.72 cm 03/05/2017 [facility] BMI Calculated 47.84 03/05/2017 [facility] Weight 142.727 03/04/2017 [facility] BMI Calculated 47.84 03/04/2017 [facility] Height 172.72 cm 03/04/2017 [facility] Temperature Oral (F) 98.1 F 02/21/2017 [facility] Systolic (mm Hg) 168 02/21/2017 [facility] Diastolic (mm Hg) 82 02/21/2017 [facility] Respitory Rate 20 02/21/2017 [facility] Systolic (mm Hg) 102 02/21/2017 [facility] Diastolic (mm Hg) 65 02/21/2017 [facility] Respitory Rate 19 02/21/2017 [facility] Systolic (mm Hg) 140 02/21/2017 [facility] Diastolic (mm Hg) 97 02/21/2017 [facility] Respitory Rate 28 02/21/2017 [facility] BMI Calculated 49.82 02/21/2017 [facility] Height 172.72 cm 02/21/2017 [facility] Weight 148.636 02/21/2017 [facility] Temperature Oral (F) 98.3 F 02/21/2017 [facility] Heart Rate 77 02/21/2017 [facility] Respitory Rate 18 02/12/2017 [facility] Heart Rate 80 02/12/2017 [facility] Respitory Rate 17 02/12/2017 [facility] Systolic (mm Hg) 144 02/12/2017 [facility] Diastolic (mm Hg) 75 02/12/2017 [facility] Temperature Oral (F) 97.5 F 02/12/2017 [facility] Temperature Oral (F) 98.3 F 02/11/2017 [facility] Heart Rate 94 02/11/2017 [facility] Respitory Rate 19 02/11/2017 [facility] Systolic (mm Hg) 117 02/11/2017 [facility] Diastolic (mm Hg) 77 02/11/2017 [facility] Temperature Oral (F) 98.0 F 02/11/2017 [facility] Systolic (mm Hg) 142 02/11/2017 [facility] Diastolic (mm Hg) 82 02/11/2017 [facility] Heart Rate 90 02/11/2017 [facility] Height 172.72 cm 02/08/2017 [facility] Weight 149.091 02/08/2017 [facility] BMI Calculated 49.98 02/08/2017 [facility] Height 172.72 cm 02/07/2017 [facility] BMI Calculated 50.13 02/07/2017 [facility] Weight 149.545 02/07/2017 [facility] Heart Rate 96 02/03/2017 [facility] Temperature Oral (F) 98.3 F 02/03/2017 [facility] Respitory Rate 16 02/03/2017 [facility] Systolic (mm Hg) 135 02/03/2017 [facility] Diastolic (mm Hg) 92 02/03/2017 [facility] Temperature Oral (F) 98.2 F 02/03/2017 [facility] Heart Rate 88 02/03/2017 [facility] Respitory Rate 16 02/03/2017 [facility] Systolic (mm Hg) 127 02/03/2017 [facility] Diastolic (mm Hg) 85 02/03/2017 [facility] Respitory Rate 16 02/03/2017 [facility] Heart Rate 77 02/03/2017 [facility] Systolic (mm Hg) 142 02/03/2017 [facility] Diastolic (mm Hg) 88 02/03/2017 [facility] Temperature Oral (F) 98 F 02/03/2017 [facility] BMI Calculated 50.28 02/02/2017 [facility] Weight 150 02/02/2017 [facility] Height 172.72 cm 02/02/2017 [facility] Systolic (mm Hg) 126 01/14/2017 [facility] Diastolic (mm Hg) 94 01/14/2017 [facility] Heart Rate 84 01/14/2017 [facility] Respitory Rate 20 01/14/2017 [facility] Respitory Rate 20 01/14/2017 [facility] Heart Rate 85 01/14/2017 [facility] Systolic (mm Hg) 141 01/14/2017 [facility] Diastolic (mm Hg) 88 01/14/2017 [facility] Weight 152.273 01/14/2017 [facility] BMI Calculated 51.04 01/14/2017 [facility] Height 172.72 cm 01/14/2017 [facility] Systolic (mm Hg) 137 01/14/2017 [facility] Diastolic (mm Hg) 96 01/14/2017 [facility] Respitory Rate 20 01/14/2017 [facility] Heart Rate 104 01/14/2017 [facility] Temperature Oral (F) 98.5 F 01/14/2017 [facility] Temperature Oral (F) 98.6 F 01/13/2017 [facility] Respitory Rate 18 01/13/2017 [facility] Heart Rate 84 01/13/2017 [facility] Systolic (mm Hg) 137 01/13/2017 [facility] Diastolic (mm Hg) 95 01/13/2017 [facility] Weight 152.273 01/12/2017 [facility] Height 172.72 cm 01/12/2017 [facility] BMI Calculated 51.04 01/12/2017 [facility] Systolic (mm Hg) 149 01/12/2017 [facility] Diastolic (mm Hg) 100 01/12/2017 [facility] Heart Rate 89 01/12/2017 [facility] Respitory Rate 16 01/12/2017 [facility] Temperature Oral (F) 98.2 F 12/25/2016 [facility] Systolic (mm Hg) 153 12/25/2016 [facility] Diastolic (mm Hg) 98 12/25/2016 [facility] Respitory Rate 19 12/25/2016 [facility] Temperature Oral (F) 98.2 F 12/25/2016 [facility] Heart Rate 78 12/25/2016 [facility] Systolic (mm Hg) 147 12/25/2016 [facility] Diastolic (mm Hg) 78 12/25/2016 [facility] Respitory Rate 21 12/25/2016 [facility] Height 172.72 cm 12/25/2016 [facility] Weight 152.273 12/25/2016 [facility] BMI Calculated 51.04 12/25/2016 [facility] Temperature Oral (F) 98.5 F 12/25/2016 [facility] Respitory Rate 18 12/25/2016 [facility] Systolic (mm Hg) 159 12/25/2016 [facility] Diastolic (mm Hg) 109 12/25/2016 [facility] Heart Rate 80 12/25/2016 [facility] Systolic (mm Hg) 122 11/16/2016 [facility] Diastolic (mm Hg) 78 11/16/2016 [facility] Respitory Rate 19 11/16/2016 [facility] Heart Rate 80 11/16/2016 [facility] Temperature Oral (F) 98 F 11/16/2016 [facility] Heart Rate 98 11/16/2016 [facility] Temperature Oral (F) 97.9 F 11/16/2016 [facility] Systolic (mm Hg) 134 11/16/2016 [facility] Diastolic (mm Hg) 81 11/16/2016 [facility] Respitory Rate 18 11/16/2016 [facility] Temperature Oral (F) 98.1 F 11/16/2016 [facility] Respitory Rate 18 11/16/2016 [facility] Systolic (mm Hg) 121 11/16/2016 [facility] Diastolic (mm Hg) 71 11/16/2016 [facility] Heart Rate 69 11/16/2016 [facility] BMI Calculated 50.28 11/15/2016 [facility] Height 172.72 cm 11/15/2016 [facility] Weight 150 11/15/2016 [facility] Temperature Oral (F) 98 F 08/20/2016 [facility] Heart Rate 88 08/20/2016 [facility] Respitory Rate 16 08/20/2016 [facility] Systolic (mm Hg) 140 08/20/2016 [facility] Diastolic (mm Hg) 72 08/20/2016 [facility] Weight 145.455 08/20/2016 [facility] Height 172.72 cm 08/20/2016 [facility] Temperature Oral (F) 97.7 F 08/20/2016 [facility] Respitory Rate 16 08/20/2016 [facility] BMI Calculated 48.76 08/20/2016 [facility] Heart Rate 100 08/20/2016 [facility] Systolic (mm Hg) 143 08/20/2016 [facility] Diastolic (mm Hg) 78 08/20/2016 [facility] Heart Rate 64 07/22/2016 [facility] Temperature Oral (F) 98.3 F 07/22/2016 [facility] Systolic (mm Hg) 150 07/22/2016 [facility] Diastolic (mm Hg) 93 07/22/2016 [facility] Respitory Rate 16 07/22/2016 [facility] Systolic (mm Hg) 131 07/22/2016 [facility] Diastolic (mm Hg) 82 07/22/2016 [facility] Respitory Rate 16 07/22/2016 [facility] Temperature Oral (F) 98.5 F 07/22/2016 [facility] Heart Rate 67 07/22/2016 [facility] Heart Rate 76 07/22/2016 [facility] Systolic (mm Hg) 117 07/22/2016 [facility] Respitory Rate 16 07/22/2016 [facility] Diastolic (mm Hg) 87 07/22/2016 [facility] Height 172.72 cm 07/21/2016 [facility] BMI Calculated 51.2 07/21/2016 [facility] Weight 152.727 07/21/2016 [facility] Temperature Oral (F) 98.5 F 07/21/2016 [facility] Temperature Oral (F) 98.2 F 11/23/2015 [facility] Systolic (mm Hg) 114 11/23/2015 [facility] Diastolic (mm Hg) 63 11/23/2015 [facility] Respitory Rate 20 11/23/2015 [facility] Respitory Rate 23 11/23/2015 [facility] Respitory Rate 20 11/23/2015 [facility] Systolic (mm Hg) 111 11/23/2015 [facility] Diastolic (mm Hg) 78 11/23/2015 [facility] Systolic (mm Hg) 147 11/23/2015 [facility] Diastolic (mm Hg) 84 11/23/2015 [facility] Temperature Oral (F) 98.3 F 11/23/2015 [facility] Weight 145.455 11/23/2015 [facility] Heart Rate 56 11/23/2015 [facility] Temperature Oral (F) 98.4 F 10/01/2015 [facility] Systolic (mm Hg) 146 10/01/2015 [facility] Diastolic (mm Hg) 92 10/01/2015 [facility] Respitory Rate 18 10/01/2015 [facility] Heart Rate 73 10/01/2015 [facility] Height 172.72 cm 10/01/2015 [facility] Weight 147.727 10/01/2015 [facility] BMI Calculated 49.52 10/01/2015 [facility] Temperature Oral (F) 98.6 F 10/01/2015 [facility] Respitory Rate 24 10/01/2015 [facility] Systolic (mm Hg) 157 10/01/2015 [facility] Diastolic (mm Hg) 91 10/01/2015 [facility] Heart Rate 87 10/01/2015 [facility] Respitory Rate 18 12/19/2014 [facility] Systolic (mm Hg) 168 12/19/2014 [facility] Diastolic (mm Hg) 78 12/19/2014 [facility] Heart Rate 74 12/19/2014 [facility] Temperature Oral (F) 98.0 F 12/19/2014 [facility] Weight 152.273 12/18/2014 [facility] Heart Rate 76 12/18/2014 [facility] Respitory Rate 20 12/18/2014 [facility] Temperature Oral (F) 98.1 F 12/18/2014 [facility] BMI Calculated 51.04 12/18/2014 [facility] Height 172.72 cm 12/18/2014 [facility] Systolic (mm Hg) 174 12/18/2014 [facility] Diastolic (mm Hg) 77 12/18/2014 [facility] Temperature Oral (F) 98.4 F 10/23/2014 [facility] Heart Rate 70 10/23/2014 [facility] Systolic (mm Hg) 132 10/23/2014 [facility] Diastolic (mm Hg) 74 10/23/2014 [facility] Respitory Rate 20 10/23/2014 [facility] Weight 152.273 10/22/2014 [facility] Height 172.72 cm 10/22/2014 [facility] BMI Calculated 51.04 10/22/2014 [facility] Systolic (mm Hg) 131 10/22/2014 [facility] Diastolic (mm Hg) 77 10/22/2014 [facility] Heart Rate 81 10/22/2014 [facility] Respitory Rate 16 10/22/2014 [facility] Temperature Oral (F) 97.7 F 10/22/2014 [facility] Systolic (mm Hg) 129 03/04/2014 [facility] Diastolic (mm Hg) 83 03/04/2014 [facility] Heart Rate 74 03/04/2014 [facility] Respitory Rate 18 03/04/2014 [facility] Temperature Oral (F) 98.0 F 03/04/2014 [facility] Diastolic (mm Hg) 91 03/04/2014 [facility] Heart Rate 74 03/04/2014 [facility] Temperature Oral (F) 98.0 F 03/04/2014 [facility] [facility] Systolic (mm Hg) 136 03/04/2014 [facility] Respitory Rate 18 03/04/2014 [facility] Diastolic (mm Hg) 82 03/04/2014 [facility] Heart Rate 70 03/04/2014 [facility] Systolic (mm Hg) 126 03/04/2014 [facility] Respitory Rate 18 03/04/2014 [facility] Height 172.72 cm 03/04/2014 [facility] Weight 152.273 03/04/2014 [facility] BMI Calculated 51.04 03/04/2014 [facility] Temperature Oral (F) 98.2 F 03/04/2014 [facility] Systolic (mm Hg) 133 03/02/2014 [facility] Diastolic (mm Hg) 85 03/02/2014 [facility] Heart Rate 86 03/02/2014 [facility] Respitory Rate 20 03/02/2014 [facility] Systolic (mm Hg) 133 03/02/2014 [facility] Heart Rate 86 03/02/2014 [facility] Respitory Rate 24 03/02/2014 [facility] Diastolic (mm Hg) 85 03/02/2014 [facility] Weight 152.273 03/02/2014 [facility] BMI Calculated 51.04 03/02/2014 [facility] Height 172.72 cm 03/02/2014 [facility] Diastolic (mm Hg) 80 12/20/2013 [facility] Temperature Oral (F) 97.9 F 12/20/2013 [facility] Respitory Rate 18 12/20/2013 [facility] Heart Rate 64 12/20/2013 [facility] Systolic (mm Hg) 122 12/20/2013 [facility] Heart Rate 76 12/19/2013 [facility] Respitory Rate 18 12/19/2013 [facility] Systolic (mm Hg) 137 12/19/2013 [facility] Diastolic (mm Hg) 77 12/19/2013 [facility] Weight 143.182 12/19/2013 [facility] Height 172.72 cm 12/19/2013 [facility] BMI Calculated 48 12/19/2013 [facility] Temperature Oral (F) 98.6 F 12/19/2013 [facility] Systolic (mm Hg) 125 12/19/2013 [facility] Respitory Rate 18 12/19/2013 [facility] Heart Rate 85 12/19/2013 [facility] Diastolic (mm Hg) 81 12/19/2013 [facility] Systolic (mm Hg) 118 07/23/2013 [facility] Diastolic (mm Hg) 82 07/23/2013 [facility] Respitory Rate 16 07/23/2013 [facility] Heart Rate 72 07/23/2013 [facility] Temperature Oral (F) 98.0 F 07/23/2013 [facility] Weight 159.091 07/22/2013 [facility] Height 187.96 cm 07/22/2013 [facility] Temperature Oral (F) 97.6 F 07/22/2013 [facility] Respitory Rate 16 07/22/2013 [facility] Heart Rate 69 07/22/2013 [facility] Diastolic (mm Hg) 73 07/22/2013 [facility] Systolic (mm Hg) 127 07/22/2013 [facility] Diastolic (mm Hg) 83 03/15/2013 [facility] Systolic (mm Hg) 119 03/15/2013 [facility] Respitory Rate 20 03/15/2013 [facility] Temperature Oral (F) 98.4 F 03/15/2013 [facility] Respitory Rate 21 03/15/2013 [facility] Systolic (mm Hg) 123 03/15/2013 [facility] Diastolic (mm Hg) 52 03/15/2013 [facility] Systolic (mm Hg) 121 03/15/2013 [facility] Diastolic (mm Hg) 83 03/15/2013 [facility] Respitory Rate 21 03/15/2013 [facility] Weight 145.455 03/15/2013 [facility] Height 172.72 cm 03/15/2013 [facility] Temperature Oral (F) 98.2 F 03/15/2013 [facility] Heart Rate 86 03/15/2013 [facility] Encounters Location Location Details Encounter Type Encounter Number Reason For Visit Attending Provider ADM Date DC Date Status Source [facility] Emergency [id number] IZAIAH JO 03/15/2013 03/15/2013 Active [facility] Emergency [id number] DEVORAH GROSS 07/22/2013 07/22/2013 Active [facility] [id number] Izaiah Daniel 12/19/2013 12/20/2013 [facility] OP Therapy Patients [id number] Juwan Tarango 02/03/2014 03/05/2014 [facility] Emergency Center [id number] Royce Brody 03/02/2014 03/02/2014 [facility] [id number] Berto Daley 03/04/2014 03/04/2014 [facility] OP Therapy Patients [id number] Juwan Tarango 03/06/2014 04/05/2014 [facility] [id number] Megan Rowell 10/22/2014 10/23/2014 [facility] [id number] Tio Vasquez 12/18/2014 12/19/2014 [facility] [id number] Cesario Sanders 01/23/2015 01/24/2015 [facility] Outpatient [id number] Alok Araiza 02/08/2015 02/08/2015 [facility] Emergency [facility] [id number] Berto Daley 10/01/2015 10/01/2015 [facility] [place] [facility] [id number] Nakul Minervang Hola 10/11/2015 10/12/2015 [facility] Emergency Center [id number] Zhao Thurman 11/23/2015 11/23/2015 [facility] [place] OP Therapy Patients [id number] Lokesh Eros 12/05/2015 01/04/2016 [facility] [id number] Berto Daley 07/21/2016 07/22/2016 [facility] Emergency [id number] Perez Nolasco 08/20/2016 08/20/2016 [facility] Observation [id number] Sterling Bahena 11/15/2016 11/16/2016 [facility] Emergency [id number] Soledad Anay 12/25/2016 12/25/2016 [facility] Emergency [id number] Soledad Anay 01/12/2017 01/13/2017 [facility] Emergency [id number] Ming Mills 01/14/2017 01/15/2017 [facility] Observation [id number] Garo Willams 02/02/2017 02/03/2017 [facility] Observation [id number] Noé Pichardo Jr 02/07/2017 02/12/2017 [facility] Outpatient [id number] Fabiolanelson Alfonso 02/20/2017 02/20/2017 [facility] Observation [id number] Anton Ruddis 02/21/2017 02/21/2017 [facility] Observation [id number] Suyapao Mougouris 03/04/2017 03/05/2017 [facility] Emergency [id number] Mariela Alcanter 03/07/2017 03/07/2017 [facility] Observation [id number] Brian Ginger 03/09/2017 03/11/2017 [facility] Observation [id number] Pema Arevaloquinn 03/24/2017 03/25/2017 [facility] Emergency [id number] Soledad Wilkersonooqi 04/07/2017 04/08/2017 [facility] Office Visit [id number] WARREN (obstructive sleep apnea) Overweight Essential hypertension Anxiety Lung infection Spasm of muscle 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 Bilateral low back pain with sciatica, sciatica laterality unspecified, unspecified chronicity Edilson Roberson MD 04/10/2017 04/10/2017 [facility] Social Work [facility] Telephone [id number] Hattie Knight RN 04/17/2017 [facility] Observation [id number] Fermin Morris 04/19/2017 04/21/2017 [facility] Emergency [id number] Tio Mixon 04/23/2017 04/24/2017 [facility] Telephone [id number] Edilson Gonzalez 05/07/2017 [facility] Office Visit [id number] Need for influenza vaccination 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 [place] Refill [id number] Anxiety Spasm of muscle Edilson Roberson MD 06/01/[address] [facility] [place] Refill [id number] Edilson Roberson MD 06/02/2017 [facility] Outpatient [id number] Nakul Castañeda 06/02/2017 06/03/2017 [facility] [place] Orders Only [id number] Mixed hyperlipidemia Edilson Roberson MD 06/08/[address] [facility] [place] Telephone [id number] Dyan Le RN 06/08/[address] [facility] [place] Telephone [id number] Dyan Le RN 06/09/2017 [facility] Emergency [id number] Hebert Palencia 06/16/2017 06/17/2017 [facility] [place] Refill [id number] Spasm of muscle Anxiety Edilson Roberson MD 06/26/2017 [facility] [place] Telephone [id number] Evelyn Lomax [facility] 06/26/[address] [facility] [place] Refill [id number] Edilson Roberson MD 06/30/[address] [facility] [place] Refill [id number] Edilson Roberson MD 06/30/[address] [facility] [place] Refill [id number] Edilson Roberson MD 07/01/2017 [facility] Emergency [id number] Lynne Simon 07/10/2017 07/10/2017 [facility] Outpatient [id number] Nakul Castañeda 07/17/2017 07/18/2017 [facility] Work [place] Telephone [id number] Evelyn Lomax [facility] 07/21/2017 [facility] Bedded Outpatient [id number] Nakul Castañeda 07/27/2017 07/28/2017 [facility] [place] Refill [id number] Edilson Roberson MD 08/03/[address] [facility] [place] Refill [id number] Edilson Roberson MD 08/10/[address] [facility] [place] Refill [id number] Edilson Roberson MD 08/11/[address] [facility] [place] Refill [id number] Edilson Roberson MD 08/16/2017 [facility] Emergency [id number] Bradley Paul 08/17/2017 08/17/2017 [facility] Family [facility] [place] Refill [id number] Edilson Roberson MD 08/18/[address] [facility] [place] Refill [id number] Edilson Roberson MD 08/19/2017 [facility] Outpatient [id number] Nakul Castañeda 08/25/2017 08/26/2017 [facility] [place] Refill [id number] Edilson Roberson MD 09/04/[address] [facility] [place] Refill [id number] Edilson Roberson MD 09/04/[address] [facility] Refill [id number] Edilson Roberson MD 09/07/[address] [facility] Refill [id number] Edilson Roberson MD 09/23/[address] [facility] Refill [id number] Edilson Roberson MD 09/28/2017 [facility] [id number] Giovana Reis 10/02/2017 10/03/2017 [facility] [place] Office Visit [id number] Edilson Roberson MD 10/13/2017 10/13/2017 [facility] Outpatient [id number] Nakul Castañeda 10/27/2017 10/28/2017 [facility] [place] Refill [id number] Edilson Roberson MD 11/26/[address] [facility] [place] Refill [id number] Edilson Roberson MD 11/28/2017 [facility] Emergency Room [id number] ALEC GIBSON MD 11/30/2017 11/30/2017 [facility] [place] Ref[facility] [id number] Edilson Roberson MD 12/01/[address] [facility] [place] Refill [id number] Edilson Roberson MD 12/03/[address] [facility] [place] Office Visit [id number] Edilson Roberson MD 12/08/2017 12/08/2017 [facility] Emergency [id number] Evaristo Crowell 01/02/2018 01/02/2018 [facility] Emergency [id number] Karson Contreras 01/08/2018 01/09/2018 [facility] [place] Office Visit [id number] Edilson Roberson MD 01/12/2018 01/12/2018 [facility] Emergency [id number] Bubba Dunlapter 01/15/2018 01/16/2018 [facility] Phone Message [id number] 01/21/2018 01/23/2018 [facility] Emergency [id number] Navin Pisano MD 01/31/2018 01/31/2018 [facility] Outpatient [id number] Nakul Castañeda 02/02/2018 02/03/2018 [facility] Emergency [id number] Madeleine Bensonaka 02/12/2018 02/13/2018 [facility] [place] Refill [id number] Edilson Roberson MD 02/15/[address] [facility] [place] Refill [id number] Edilson Roberson MD 02/16/[address] [facility] [place] Orders Only [id number] Edilson Roberson MD 02/22/[address] [facility] Office Visit [id number] Edilson Roberson MD 02/22/2018 02/22/2018 [facility] Observation [id number] 02/24/2018 02/24/2018 [facility] Outpatient [id number] Nakul Castañeda 03/05/2018 03/06/2018 [facility] [place] Office Visit [id number] Edilson Roberson MD 03/09/2018 07/08/2018 [facility] Emergency Room [id number] DYLLAN PEÑALOZA MD 03/13/2018 03/13/2018 [facility] [place] Telephone [id number] Darline Roman RN 03/22/[address] [facility] [place] Office Visit [id number] Edilson Roberson MD 03/30/2018 03/30/2018 [facility] Emergency [id number] Zhao Thurman 04/01/2018 04/02/2018 [facility] [place] Refill [id number] Darline Roman RN 04/09/2018 [facility] Outpatient [id number] Non Physician 04/16/2018 04/16/2018 [facility] [place] Refill [id number] Darline Roman RN 04/21/2018 [facility] Family [facility] [place] Orders Only [id number] Edilson Roberson MD 04/30/[address] [facility] Office Visit [id number] Edilson Roberson MD 04/30/2018 04/30/2018 [facility] Emergency [id number] Hannah Silvio 05/10/2018 05/11/2018 [facility] [place] Refill [id number] Edilson Roberson MD 05/27/[address] [facility] [place] Refill [id number] Edilson Roberson MD 05/30/2018 [facility] Phone Message [id number] 05/31/2018 06/02/2018 [facility] Travel [id number] 06/04/[address] [facility] Office Visit [id number] Edilsno Roberson MD 06/04/2018 06/04/[address] [facility] Refill [id number] Edilson Roberson MD 06/30/[address] [facility] Orders Only [id number] Edilson Roberson MD 07/05/2018 [facility] Travel [id number] 07/05/[address] [facility] [place] Office Visit [id number] Edilson Roberson MD 07/05/2018 07/05/2018 [facility] [id number] Lauri Rasmussen 07/22/2018 07/23/2018 [facility] [place] Office Visit [id number] Edilson Roberson MD 07/26/2018 07/26/[address] [facility] Orders Only [id number] Edilson Roberson MD 07/30/2018 [facility] Travel [id number] 08/27/[address] [facility] [place] Office Visit [id number] Edilson Roberson MD 08/27/2018 08/27/[address] [facility] Orders Only [id number] Edilson Roberson MD 09/24/2018 [facility] Travel [id number] 09/27/[address] [facility] [place] Telephone [id number] Tammy Srivastava RN 09/28/[address] [facility] [place] Refill [id number] Edilson Roberson MD 09/28/[address] [facility] Orders Only [id number] Edilson Roberson MD 10/01/[address] [facility] [place] Refill [id number] Ayaka Jaffe RN 10/01/2018 [facility] Procedures Procedure Code Date Perfomer Comments Source URINE DRUG SCREEN 05855 09/27/2018 [facility] URINE DRUG SCREEN 42569 06/05/2018 [facility] URINE DRUG SCREEN 99769 05/01/2018 [facility] CBC 28634 03/31/2018 [facility] LIPID PROFILE 37495 03/31/2018 [facility] LIVER PROFILE 32412 03/31/2018 [facility] UA CHEMISTRIES 21577 03/31/2018 [facility] UREA NITROGEN/CREA 92801 03/31/2018 [facility] ELECTROLYTES 03523 03/31/2018 [facility] GLUCOSE, FASTING 70575 03/31/2018 [facility] HEMOGLOBIN A1C 08070 03/31/2018 [facility] TSH 98857 03/31/2018 [facility] ENDOMYSIAL AB IGA 49972 03/31/2018 [facility] AMYLASE 05734 03/31/2018 [facility] LIPASE 62744 03/31/2018 [facility] B NATRIURETIC PEPT 43544 03/31/2018 [facility] HEPATITIS PANEL 71211 03/31/2018 [facility] HIV-1/HIV-2 ROUTINE SCREENING 76840 03/31/2018 [facility] GASTRIN, SERUM 89387 03/31/2018 [facility] URINE DRUG SCREEN 18492 02/22/2018 [facility] VBG POC 31517 01/31/[address] [facility] CT ABDOMEN AND PELVIS CONTRAST 36864 01/31/2018 [facility] UA CHEMISTRIES 03194 01/31/2018 [facility] BMP POC 66159 01/31/2018 Unknown [facility] TROPONIN I POC 23752 01/31/2018 Unknown [facility] CBC/DIFF 85673 01/31/2018 [facility] LIVER PROFILE 31855 01/31/2018 [facility] LIPASE 79091 01/31/2018 [facility] HIV-1/HIV-2 ROUTINE SCREENING 32906 01/31/2018 [facility] 12 LEAD EKG 46303 01/31/2018 [facility] URINE DRUG SCREEN 15685 12/08/2017 [facility] BMP POC 93361 05/23/2017 Unknown [facility] CBC/DIFF 63349 05/23/2017 [facility] HIV-1/HIV-2 ROUTINE SCREENING 15603 05/23/2017 [facility] LIVER PROFILE 46758 05/23/2017 [facility] LIPASE 16224 05/23/2017 [facility] UA CHEMISTRIES 50713 05/23/2017 [facility] THROAT CULTURE 41636 05/07/2017 [facility] HEMOGLOBIN A1C 81568 05/07/2017 [facility] GROUP A STREP SCREEN 94849 05/07/2017 [facility] RAPID INFLUENZA SCREEN 69454 05/07/2017 [facility] URINE DRUG SCREEN 34165 04/10/2017 [facility] Dilation of esophagus [id number] [facility] [id number] [facility] Dilation of esophagus [id number] [facility] Colon[facility] [id number] [facility] [id number] [facility] Dilation of esophagus [id number] [facility] [id number] [facility] Dilation of esophagus [id number] [facility] Colonoscopy [id number] [facility] Dilation of esophagus [id number] [facility]
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
--- OUTSIDE RECORDS SUMMARY | 2018-12-20 16:15 | XMS REPORT | Summary of Care ---
Author Author [facility] Organization [facility] Address Unknown Phone Unavailable Encounter HQ Ha_sajan(FIN) [id number] Date(s): 04/16/18 - 04/16/18 [facility] [address] [place] [address]- U S [phone] Attending Physician: Physician, Non Associated MD Referring Physician: Physician, Non Associated MD Vital Signs No data available for [...] Adverse Reactions, Alerts Substance Reaction Severity Status [place] Active traMADol Active Medications No data available [...]
--- OUTSIDE RECORDS SUMMARY | 2018-12-20 16:15 | XMS REPORT | Summary of Care ---
Author Author [facility] Organization [facility] Address Unknown Phone Unavailable Encounter MIAH Manjarrez) [id number] Date(s): 02/12/18 - 02/13/18 [facility] [address] Professional Services provided by [facility] [employer] [facility] [place] [address]- Encounter Diagnosis Abdominal gas pain (Discharge Diagnosis) - 02/13/18 Gastro-esophageal reflux disease without esophagitis (Final) - 02/18/18 Other chronic pain (Final) - Underdosing of unspecified systemic antibiotic, initial encounter (Final) - Patient's intentional underdosing of medication regimen for other reason (Final) - Chronic obstructive pulmonary disease, unspecified (Final) - Obstructive sleep apnea (adult) (pediatric) (Final) - Dependence on supplemental oxygen (Final) - Personal history of nicotine dependence (Final) - Other custodial (current) drug therapy (Final) - Discharge Disposition: Home or Self Care Attending Physician: Madeleine Armijo MD Vital Signs 1 2 3 Most recent to oldest [Reference Range]: 98.2 DegF (02/13/18 4:18 AM) 98.2 DegF (02/12/18 11:24 PM) 97.6 DegF (02/12/18 7:44 PM) Temperature Oral [96.4-99.1 DegF] 150/89 mmHg *HI* (02/13/18 4:18 AM) 148/93 mmHg *HI* (02/13/18 3:21 AM) 166/84 mmHg *HI* (02/13/18 1:00 AM) Blood Pressure [90-140/60-90 mmHg] 18 BRMIN (02/13/18 4:18 AM) 18 BRMIN (02/13/18 3:21 AM) 18 BRMIN (02/13/18 1:00 AM) Respiratory Rate [14-20 BRMIN] 74 bpm (8/17/18 11:24 PM) 75 bpm (02/12/18 7:44 PM) 61 bpm (02/12/18 5:25 PM) Peripheral Pulse Rate [60-100 bpm] 102.273 kg (02/12/18 2:22 PM) Weight Problem List Condition Effective Dates [...] Severity Status [place] Active traMADol Active Medications famotidine 20 mg, 2 mL, Route: IVP, Drug form: INJ, ONCE, Dosing Weight 102.273, kg, Priori ty: STAT, Start date: 02/13/18 3:54:00 CDT, Stop date: 02/13/18 3:54:00 CDT Notes: (Same as: Pepcid)Can be dilute in 5-10cc NS IVP: Slow IV push over at le ast 2 minutes. Start Date: 02/13/18 Stop Date: 02/13/18 Status: Completed GI cocktail (aluminum hydroxide/magnesium hydroxide/lidocaine/simethicone) 30 mL, Route: PO, Drug Form: SUSP, Dosing Weight 102.273, kg, ONCE, STAT, Start date: 02/13/18 0:53:00 CDT, Stop date: 02/13/18 0:53:00 CDT Notes: G.I. Cocktail - aluminum hydroxide/magnesium hydroxide/lidocaine/simethic one Start Date: 02/13/18 Stop Date: 02/13/18 Status: Completed ondansetron 4 mg, 2 mL, Route: IVP, Drug form: INJ, ONCE, Dosing Weight 102.273, kg, Priorit y: STAT, Start date: 02/13/18 1:06:00 CDT, Stop date: 02/13/18 1:06:00 CDT Notes: (Same as: Zofran) MEDICATION WASTE Product Size: 4 mgProduct Was vicente: ___ mg Start Date: 02/13/18 Stop Date: 02/13/18 Status: Completed pantoprazole 40 mg, Route: IVP, ONCE, Dosing Weight 102.273, kg, Priority: STAT, Start date: 02/13/18 3:54:00 CDT, Stop date: 02/13/18 3:54:00 CDT Start Date: 02/13/18 Stop Date: 02/13/18 Status: Discontinued Results ELECTROLYTES Most recent to 1 2 oldest [Reference Range]: Sodium Lvl [135-145 139 mEq/L mEq/L] (02/12/18 2:30 PM) Potassium Lvl 4.9 mEq/L [3.5-5.1 mEq/L] (02/12/18 2:30 PM) Chloride Lvl [95-109 104 mEq/L mEq/L] (02/12/18 2:30 PM) CO2 [24-32 mEq/L] 29 mEq/L (02/12/18 2:30 PM) AGAP [10.0-20.0 10.9 mEq/L mEq/L] (02/12/18 2:30 PM) CHEM PANEL Most recent to 1 2 oldest [Reference Range]: Creatinine Lvl 0.96 mg/dL [0.50-1.40 mg/dL] (02/12/18 2:30 PM) eGFR 87 mL/min/1.73m2 1 *NA* (02/12/18 2:30 PM) BUN [7-22 mg/dL] 11 mg/dL (02/12/18 2:30 PM) Glucose Lvl [70-99 94 mg/dL mg/dL] (02/12/18 2:30 PM) Total Protein 7.1 g/dL [6.4-8.4 g/dL] (02/12/18 2:30 PM) Albumin Lvl [3.5-5.0 3.6 g/dL g/dL] (02/12/18 2:30 PM) Globulin [2.7-4.2 3.5 g/dL g/dL] (02/12/18 2:30 PM) A/G Ratio [0.7-1.6] 1.0 (02/12/18 2:30 PM) Calcium Lvl 9.5 mg/dL [8.5-10.5 mg/dL] (02/12/18 2:30 PM) ALT [0-65 unit/L] 19 unit/L (02/12/18 2:30 PM) AST [0-37 unit/L] 17 unit/L (02/12/18 2:30 PM) Alk Phos [39-136 60 unit/L unit/L] (02/12/18 2:30 PM) Bili Total [0.2-1.3 0.9 mg/dL mg/dL] (02/12/18 2:30 PM) Bili Direct [0.0-0.3 0.1 mg/dL mg/dL] (02/12/18 2:30 PM) Bili Indirect 0.8 mg/dL [0.0-1.0 mg/dL] (02/12/18 2:30 PM) Lipase Lvl [73-393 131 unit/L unit/L] (02/12/18 2:30 PM) 1Result Comment: The eGFR is calculated [...] be mul tiplied by the estimated BMI. URINE AND STOOL Most recent to 1 2 oldest [Reference Range]: UA Turbidity [Clear] Clear (02/13/18 1:24 AM) UA Color [Yellow] Yellow *NA* (02/13/18 1:24 AM) UA pH [5.0-8.0] 6.5 (02/13/18 1:24 AM) UA Spec Grav 1.010 [<=1.030] (02/13/18 1:24 AM) UA Glucose [Negative Negative mg/dL mg/dL] (02/13/18 1:24 AM) UA Blood [Negative] Negative (02/13/18 1:24 AM) UA Ketones [Negative Negative mg/dL mg/dL] *NA* (02/13/18 1:24 AM) UA Protein [Negative Negative mg/dL mg/dL] (02/13/18 1:24 AM) UA Urobilinogen 0.2 EU/dL [0.1-1.0 EU/dL] (02/13/18 1:24 AM) UA Bili [Negative] Negative *NA* (02/13/18 1:24 AM) UA Leuk Est Negative [Negative] (02/13/18 1:24 AM) UA Nitrite Negative [Negative] (02/13/18 1:24 AM) UA WBC [None Seen 0-2 /HPF /HPF] (02/13/18 1:24 AM) UA RBC [0-2] None Seen (02/13/18 1:24 AM) UA Bacteria Rare *NA* (02/13/18 1:24 AM) UA Sq Epi [Few /LPF] Rare /LPF (02/13/18 1:24 AM) UA Mucus [None Seen Rare /LPF /LPF] (02/13/18 1:24 AM) Micro? Performed (02/13/18 1:24 AM) IMMUNOLOGY Most recent to 1 2 oldest [Reference Range]: CDC HIV 4th GEN Negative [Negative] *NA* (02/12/18 7:18 PM) HEMATOLOGY Most recent to 1 2 oldest [Reference Range]: WBC [3.7-10.4 K/CMM] 7.5 K/CMM 7.0 K/CMM (02/13/18 1:24 AM) (02/12/18 2:30 PM) RBC [4.70-6.10 4.63 M/CMM 4.43 M/CMM M/CMM] *LOW* *LOW* (02/13/18 1:24 AM) (02/12/18 2:30 PM) Hgb [14.0-18.0 g/dL] 15.4 g/dL 14.9 g/dL (02/13/18 1:24 AM) (02/12/18 2:30 PM) Hct [42.0-54.0 %] 44.1 % 42.4 % (02/13/18 1:24 AM) (02/12/18 2:30 PM) MCV [80.0-94.0 fL] 95.3 fL 95.8 fL *HI* *HI* (02/13/18 1:24 AM) (02/12/18 2:30 PM) MCH [27.0-31.0 pg] 33.2 pg 33.6 pg *HI* *HI* (02/13/18 1:24 AM) (02/12/18 2:30 PM) MCHC [32.0-36.0 34.9 g/dL 35.1 g/dL g/dL] (02/13/18 1:24 AM) (02/12/18 2:30 PM) RDW [11.5-14.5 %] 14.0 % 13.8 % (02/13/18 1:24 AM) (02/12/18 2:30 PM) MPV [7.4-10.4 fL] 8.5 fL 8.3 fL (02/13/18 1:24 AM) (02/12/18 2:30 PM) Platelet [133-450 160 K/CMM 147 K/CMM K/CMM] (02/13/18 1:24 AM) (02/12/18 2:30 PM) Segs [45.0-75.0 %] 74.8 % (02/13/18 1:24 AM) Lymphocytes 17.5 % [20.0-40.0 %] *LOW* (02/13/18 1:24 AM) Monocytes [2.0-12.0 6.7 % %] (02/13/18 1:24 AM) Eosinophils [0.0-4.0 0.5 % %] (02/13/18 1:24 AM) Basophils [0.0-1.0 0.5 % %] (02/13/18 1:24 AM) Neutrophils # 5.6 K/CMM [1.5-8.1 K/CMM] (02/13/18 1:24 AM) Lymphocytes # 1.3 K/CMM [1.0-5.5 K/CMM] (02/13/18 1:24 AM) Monocytes # [0.0-0.8 0.5 K/CMM K/CMM] (02/13/18 1:24 AM) Immunizations Not Given Vaccine Date Status Refusal [...]
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
--- OUTSIDE RECORDS SUMMARY | 2018-12-20 16:16 | XMS REPORT | Summary of Care ---
Author Author [facility] Organization [facility] Address Unknown Phone Unavailable Encounter MIAH Kenney(FIN) [id number] Date(s): 05/31/18 - 06/01/18 [facility] [address] [place] [address]- Vital Signs No data available for this [...] Adverse Reactions, Alerts Substance Reaction Severity Status [place] Active traMADol Active Medications No data available [...]
--- OUTSIDE RECORDS SUMMARY | 2018-12-20 16:16 | XMS REPORT | Summary of Care ---
Author Author [facility] Organization [facility] Address Unknown Phone Unavailable Encounter MIAH Kenney(CHACHA) [id number] Date(s): 01/21/18 - 01/22/18 [facility] [address] [phone] Vital Signs No data available for this [...] Adverse Reactions, Alerts Substance Reaction Severity Status [place] Active traMADol Active Medications riFAXimin 550 mg oral tablet 550 mg=1 tab, PO, TID, # 42 tab, 0 Refill(s), Pharmacy: [id number] Start Date: 01/22/18 Stop Date: 02/24/18 Status: Completed Trulance 3 mg oral tablet 3 mg=1 tab, PO, Daily, # 30 tab, 1 Refill(s), Pharmacy: [id number] Start Date: 01/22/18 Stop Date: 02/24/18 Status: Completed Results No [...]
--- OUTSIDE RECORDS SUMMARY | 2018-12-20 16:17 | XMS REPORT | Clinical Summary ---
Author Author [facility] Organization [facility] Address Unknown Phone Unavailable Care Team Providers [employer] Developer Name Role Phone Edilson Roberson MD PCP Allergies No Known Allergies Medications End Date Status Medication Sig Dispensed Refills Start Date Active zolpidem (AMBIEN) 10 mg Take 1 tablet 30 tablet 3 TabIndications: Insomnia, by mouth at 2 unspecified bedtime. Active Tadalafil (CIALIS) 5 mg Take 1 tablet 30 tablet 9 tabletIndications: Second by mouth as 6 degree hemorrhoids needed for Erectile Dysfunction. Active Omeprazole 40 mg Take 1 90 capsule 3 capsuleIndications: capsule by 6 Gastroesophageal reflux mouth daily. disease with esophagitis Active ergocalciferol (VITAMIN Take 1 12 capsule 3 D2) 50,000 unit capsule by 6 capsuleIndications: mouth weekly. Vitamin D deficiency Active lidocaine (LIDODERM) 5 % Apply 1 Patch 30 Patch 2 patchIndications: Chronic to skin as 6 left-sided low back pain directed with right-sided sciatica daily Leave patch(es) on for up to 12 hours, then 12 hours off.. Active SUMAtriptan (IMITREX) 100 Take 1 tablet 9 tablet 3 mg tabletIndications: by mouth at 6 Migraine without aura and onset of with status migrainosus, headache. not intractable Repeat after 2 hours if needed. Maximum 200mg/24 hours.. Active albuterol (PROVENTIL) 2.5 Inhale 3 mL 75 mL 0 mg /3 mL (0.083 %) by mouth 6 nebulizer every 6 hours solutionIndications: COPD as needed for exacerbation Wheezing. Active Nebulizer & Compressor by 1 Device 0 For Neb DeviIndications: Misc.(Non-Maxwell 6 COPD exacerbation g; Combo Route) route Use as directed. Active Nebulizer Accessories by 1 Each 0 MiscIndications: COPD Misc.(Non-Maxwell 6 exacerbation g; Combo Route) route Nebulizer mask. Active albuterol (PROVENTIL) 2.5 Inhale 3 mL 75 mL 0 mg /3 mL (0.083 %) by mouth 6 nebulizer every 6 hours solutionIndications: COPD as needed for exacerbation Wheezing. Active Nebulizer & Compressor 1 Device by 1 Device 0 For Neb DeviIndications: Misc.(Non-Maxwell 6 Chronic obstructive g; Combo pulmonary disease with Route) route acute exacerbation 4 times daily COPD NEEDING NEBULIZER FOR HOME TREATMENTS OF ALBUTEROL SOLUTION WITH TUBING AND MASK. Active cetirizine (ZYRTEC) 10 mg Take 1 tablet 90 tablet 2 tabletIndications: Other by mouth 6 seasonal allergic daily. rhinitis Active budesonide-formoterol Inhale 2 16 g 9 (SYMBICORT HFA) 160-4.5 Puffs by 6 mcg/actuation mouth 2 times inhalerIndications: daily. Dyspnea or other respiratory complaints Active Nebulizer & Compressor 1 Device by 1 Device 0 For Neb DeviIndications: Misc.(Non-Maxwell 6 Chronic obstructive g; Combo pulmonary disease with Route) route acute exacerbation 4 times daily. Active naloxegol (MOVANTIK) 12.5 Take 12.5 mg 30 tablet 3 mg TabIndications: by mouth 7 Drug-induced constipation daily. Active fluconazole (DIFLUCAN) Take 1 tablet 30 tablet 1 200 mg tabletIndications: by mouth 7 Tinea daily. Active hydrocortisone Insert 1 28 2 (ANUSOL-HC) 25 mg rectal Suppository Suppository 7 suppositoryIndications: rectally 2 Fourth degree hemorrhoids times daily. Active nystatin (NYSTOP) 100,000 Apply to 15 g 3 unit/gram topical affected area 7 powderIndications: Tinea 4 times daily. Active hydrocortisone-pramoxine Apply 1 20 g 3 (EPIFOAM) 1-1 % topical Applicator to 7 foamIndications: Fourth affected area degree hemorrhoids 4 times daily. Active ibuprofen (MOTRIN) 800 mg Take 1 tablet 90 tablet 3 tabletIndications: by mouth 7 Arthralgia, unspecified every 8 hours joint as needed for Pain. Active zolpidem (AMBIEN) 10 mg Take 1 tablet 30 tablet 3 TabIndications: Second by mouth 7 degree hemorrhoids nightly at bedtime as needed for Insomnia. Active ketoconazole (NIZORAL) 2 Apply to 60 g 2 % topical affected area 7 creamIndications: Tinea daily. Active amLODIPine (NORVASC) 5 mg Take 1 tablet 90 tablet 2 tabletIndications: by mouth 7 Essential hypertension daily. Active metoclopramide (REGLAN) Take 1 tablet 90 tablet 0 10 mg tabletIndications: by mouth 3 8 GI problem, Belching, times daily Abdominal fullness (before meals). Active nystatin (MYCOSTATIN) APPLY 60 g 9 topical creamIndications: TOPICALLY TO 8 Tinea AFFECTED AREA TWICE DAILY. Active traMADol (ULTRAM) 50 mg Take 1 tablet 120 tablet 0 tabletIndications: by mouth 8 Chronic left-sided low every 6 hours back pain with sciatica, as needed for sciatica laterality Pain. unspecified, Pain management Active albuterol (PROVENTIL) 2.5 Inhale 3 mL 3 mL 0 mg /3 mL (0.083 %) by mouth 8 nebulizer every 6 hours solutionIndications: as needed for Bronchospasm Wheezing. Active albuterol (PROVENTIL) 2.5 INHALE 3 300 mL 2 mg /3 mL (0.083 %) ML(ONE VAIL) 8 nebulizer VIA NEBULIZER solutionIndications: EVERY 4 HOURS Chronic obstructive NEEDED FOR pulmonary disease with WHEEZING OR acute exacerbation SHORTNESS OF BREATH. Active hydrOXYzine (ATARAX) 10 Take 1 tablet 90 tablet 2 mg tabletIndications: by mouth 8 Anxiety every 8 hours as needed for Itching. Active Omeprazole 40 mg Take 1 90 capsule 2 capsuleIndications: H. capsule by 8 pylori infection, mouth daily. Gastroesophageal reflux disease with esophagitis Active atorvastatin (LIPITOR) 40 Take 1 tablet 90 tablet 2 mg tabletIndications: by mouth at 8 Mixed hyperlipidemia bedtime nightly. Active cetirizine (ZYRTEC) 10 mg Take 1 tablet 30 tablet 3 tabletIndications: PND by mouth 8 (post-nasal drip) daily. Active fluticasone (FLONASE) 50 Use 2 Sprays 16 g 5 mcg/actuation nasal in each 8 sprayIndications: Other nostril seasonal allergic daily. rhinitis Active benzonatate (TESSALON) TAKE 2 90 capsule 1 100 mg CAPSULES BY 8 capsuleIndications: Cough MOUTH THREE TIMES DAILY NEEDED FOR COUGH. Active HYDROcodone-acetaminophen Take 1 tablet 120 tablet 0 (NORCO) 10-325 mg by mouth 9 tabletIndications: every 6 hours Chronic left-sided low as needed for back pain with Pain. right-sided sciatica Active ergocalciferol (VITAMIN Take 1 12 capsule 2 D2) 50,000 unit capsule by 9 capsuleIndications: mouth weekly. Hypovitaminosis D Active calcipotriene (DOVONEX) Apply to 60 g 3 0.005 % topical affected area 9 creamIndications: 2 times Dermatitis daily. Active traMADol (ULTRAM) 50 mg Take 1 tablet 120 tablet 0 tabletIndications: by mouth 9 Chronic left-sided low every 6 hours back pain with sciatica, as needed for sciatica laterality Pain. unspecified, Pain management Active carisoprodol 350 mg TAKE 1 TABLET 90 tablet 0 tabletIndications: Spasm BY MOUTH 9 of muscle THREE TIMES DAILY NEEDED. 11/28/2017 Discontinued albuterol (PROVENTIL) 2.5 Inhale 3 mL 300 mL 3 mg /3 mL (0.083 %) by mouth 6 nebulizer every 4 hours solutionIndications: as needed for Chronic obstructive Wheezing or pulmonary disease with Shortness of acute exacerbation Breath. 08/03/2017 Discontinued nystatin (MYCOSTATIN) Apply to 60 g 2 topical creamIndications: affected area 7 Tinea 2 times daily. 08/16/2017 Discontinued benzonatate (TESSALON Take 2 90 capsule 0 PERLES) 100 mg capsules by 7 capsuleIndications: Cough mouth 3 times daily as needed for Cough. 12/08/2017 Discontinued Omeprazole 40 mg Take 1 90 capsule 2 capsuleIndications: H. capsule by 7 pylori infection, mouth daily. Gastroesophageal reflux disease with esophagitis 07/05/2018 Discontinued ergocalciferol (VITAMIN Take 1 12 capsule 2 D2) 50,000 unit capsule by 7 capsuleIndications: mouth weekly. Hypovitaminosis D 10/13/2017 Discontinued HYDROcodone-acetaminophen Take 1 tablet 120 tablet 0 (NORCO) 10-325 mg by mouth 7 tabletIndications: every 6 hours Chronic left-sided low as needed for back pain with Pain. right-sided sciatica 10/13/2017 Discontinued cetirizine (ZYRTEC) 10 mg Take 1 tablet 30 tablet 3 tabletIndications: PND by mouth 7 (post-nasal drip) daily. 10/13/2017 Discontinued fluticasone (FLONASE) 50 Use 2 Sprays 16 g 5 mcg/actuation nasal in each 7 sprayIndications: Other nostril seasonal allergic daily. rhinitis 10/13/2017 Discontinued atorvastatin (LIPITOR) 40 Take 1 tablet 90 tablet 2 mg tabletIndications: by mouth at 7 Mixed hyperlipidemia bedtime nightly. 08/18/2017 Discontinued carisoprodol 350 mg TAKE 1 TABLET 90 tablet 0 tabletIndications: Spasm BY MOUTH 8 of muscle THREE TIMES DAILY NEEDED 08/10/2017 Discontinued diazePAM (VALIUM) 10 mg TAKE 1 TABLET 60 tablet 0 tabletIndications: BY MOUTH 8 Anxiety EVERY 12 HOURS NEEDED FOR ANXIETY 08/10/2017 Discontinued traMADol (ULTRAM) 50 mg TAKE 1 TABLET 120 tablet 0 tabletIndications: BY MOUTH 8 Chronic left-sided low EVERY 6 HOURS back pain with sciatica, NEEDED FOR sciatica laterality PAIN unspecified, Pain management 10/13/2017 Discontinued nystatin (MYCOSTATIN) APPLY 60 g 9 topical creamIndications: TOPICALLY TO 8 Tinea AFFECTED AREA TWICE DAILY 09/04/2017 Discontinued diazePAM (VALIUM) 10 mg TAKE 1 TABLET 60 tablet 0 tabletIndications: BY MOUTH 8 Anxiety EVERY 12 HOURS NEEDED FOR ANXIETY 09/04/2017 Discontinued traMADol (ULTRAM) 50 mg TAKE 1 TABLET 120 tablet 0 tabletIndications: BY MOUTH 8 Chronic left-sided low EVERY 6 HOURS back pain with sciatica, NEEDED FOR sciatica laterality PAIN unspecified, Pain management 06/04/2018 Discontinued benzonatate (TESSALON) TAKE 2 90 capsule 0 100 mg CAPSULES BY 8 capsuleIndications: Cough MOUTH THREE TIMES DAILY NEEDED FOR COUGH 09/04/2017 Discontinued carisoprodol 350 mg TAKE 1 TABLET 90 tablet 0 tabletIndications: Spasm BY MOUTH 8 of muscle THREE TIMES DAILY NEEDED. 09/23/2017 Discontinued traMADol (ULTRAM) 50 mg TAKE 1 TABLET 120 tablet 0 tabletIndications: BY MOUTH 8 Chronic left-sided low EVERY 6 HOURS back pain with sciatica, NEEDED FOR sciatica laterality PAIN unspecified, Pain management 09/23/2017 Discontinued diazePAM (VALIUM) 10 mg TAKE 1 TABLET 60 tablet 0 tabletIndications: BY MOUTH 8 Anxiety EVERY 12 HOURS NEEDED FOR ANXIETY 09/23/2017 Discontinued carisoprodol 350 mg TAKE 1 TABLET 90 tablet 0 tabletIndications: Spasm BY MOUTH 8 of muscle THREE TIMES DAILY NEEDED. 10/13/2017 Discontinued traMADol (ULTRAM) 50 mg TAKE 1 TABLET 120 tablet 0 tabletIndications: BY MOUTH 8 Chronic left-sided low EVERY 6 HOURS back pain with sciatica, NEEDED FOR sciatica laterality PAIN unspecified, Pain management 10/13/2017 Discontinued diazePAM (VALIUM) 10 mg TAKE 1 TABLET 60 tablet 0 tabletIndications: BY MOUTH 8 Anxiety EVERY 12 HOURS NEEDED FOR ANXIETY 10/13/2017 Discontinued carisoprodol 350 mg TAKE 1 TABLET 90 tablet 0 tabletIndications: Spasm BY MOUTH 8 of muscle THREE TIMES DAILY NEEDED 12/08/2017 Discontinued HYDROcodone-acetaminophen Take 1 tablet 120 tablet 0 (NORCO) 10-325 mg by mouth 8 tabletIndications: every 6 hours Chronic left-sided low as needed for back pain with Pain. right-sided sciatica 12/01/2017 Discontinued diazePAM (VALIUM) 10 mg TAKE 1 TABLET 60 tablet 0 tabletIndications: BY MOUTH 8 Anxiety EVERY 12 HOURS NEEDED FOR ANXIETY. 12/01/2017 Discontinued carisoprodol 350 mg TAKE 1 TABLET 90 tablet 0 tabletIndications: Spasm BY MOUTH 8 of muscle THREE TIMES DAILY NEEDED. 12/08/2017 Discontinued traMADol (ULTRAM) 50 mg TAKE 1 TABLET 120 tablet 0 tabletIndications: BY MOUTH 8 Chronic left-sided low EVERY 6 HOURS back pain with sciatica, NEEDED FOR sciatica laterality PAIN. unspecified, Pain management 12/08/2017 Discontinued nystatin (MYCOSTATIN) APPLY 60 g 9 topical creamIndications: TOPICALLY TO 8 Tinea AFFECTED AREA TWICE DAILY. 06/04/2018 Discontinued atorvastatin (LIPITOR) 40 Take 1 tablet 90 tablet 2 mg tabletIndications: by mouth at 8 Mixed hyperlipidemia bedtime nightly. 06/04/2018 Discontinued cetirizine (ZYRTEC) 10 mg Take 1 tablet 30 tablet 3 tabletIndications: PND by mouth 8 (post-nasal drip) daily. 06/04/2018 Discontinued fluticasone (FLONASE) 50 Use 2 Sprays 16 g 5 mcg/actuation nasal in each 8 sprayIndications: Other nostril seasonal allergic daily. rhinitis 01/12/2018 Discontinued albuterol (PROVENTIL) 2.5 INHALE 3 300 mL 0 mg /3 mL (0.083 %) ML(ONE VAIL) 8 nebulizer VIA NEBULIZER solutionIndications: EVERY 4 HOURS Chronic obstructive NEEDED FOR pulmonary disease with WHEEZING OR acute exacerbation SHORTNESS OF BREATH 12/08/2017 Discontinued diazePAM (VALIUM) 10 mg TAKE 1 TABLET 60 tablet 0 tabletIndications: BY MOUTH 8 Anxiety EVERY 12 HOURS NEEDED FOR ANXIETY 12/08/2017 Discontinued carisoprodol 350 mg TAKE 1 TABLET 90 tablet 0 tabletIndications: Spasm BY MOUTH 8 of muscle THREE TIMES DAILY NEEDED 01/12/2018 Discontinued carisoprodol 350 mg TAKE 1 TABLET 90 tablet 0 tabletIndications: Spasm BY MOUTH 8 of muscle THREE TIMES DAILY NEEDED. 01/12/2018 Discontinued HYDROcodone-acetaminophen Take 1 tablet 120 tablet 0 (NORCO) 10-325 mg by mouth 8 tabletIndications: every 6 hours Chronic left-sided low as needed for back pain with Pain. right-sided sciatica 01/12/2018 Discontinued traMADol (ULTRAM) 50 mg TAKE 1 TABLET 120 tablet 0 tabletIndications: BY MOUTH 8 Chronic left-sided low EVERY 6 HOURS back pain with sciatica, NEEDED FOR sciatica laterality PAIN. unspecified, Pain management 02/22/2018 Discontinued nystatin (MYCOSTATIN) APPLY 60 g 9 topical creamIndications: TOPICALLY TO 8 Tinea AFFECTED AREA TWICE DAILY. 12/15/2017 mupirocin (BACTROBAN) 2 % Apply to 22 g 0 ointmentIndications: Skin affected area 8 infection 3 times daily for 7 days. 06/04/2018 Discontinued Omeprazole 40 mg Take 1 90 capsule 2 capsuleIndications: H. capsule by 8 pylori infection, mouth daily. Gastroesophageal reflux disease with esophagitis 02/15/2018 Discontinued carisoprodol 350 mg TAKE 1 TABLET 90 tablet 0 tabletIndications: Spasm BY MOUTH 8 of muscle THREE TIMES DAILY NEEDED. 02/22/2018 Discontinued HYDROcodone-acetaminophen Take 1 tablet 120 tablet 0 (NORCO) 10-325 mg by mouth 8 tabletIndications: every 6 hours Chronic left-sided low as needed for back pain with Pain. right-sided sciatica 02/15/2018 Discontinued traMADol (ULTRAM) 50 mg TAKE 1 TABLET 120 tablet 0 tabletIndications: BY MOUTH 8 Chronic left-sided low EVERY 6 HOURS back pain with sciatica, NEEDED FOR sciatica laterality PAIN. unspecified, Pain management 06/04/2018 Discontinued albuterol (PROVENTIL) 2.5 INHALE 3 300 mL 2 mg /3 mL (0.083 %) ML(ONE VAIL) 8 nebulizer VIA NEBULIZER solutionIndications: EVERY 4 HOURS Chronic obstructive NEEDED FOR pulmonary disease with WHEEZING OR acute exacerbation SHORTNESS OF BREATH. 01/26/2018 amoxicillin (AMOXIL) 500 Take 1 42 capsule 0 mg capsuleIndications: capsule by 8 Gastritis and mouth 3 times gastroduodenitis daily for 14 days. 06/04/2018 Discontinued hydrOXYzine (ATARAX) 10 Take 1 tablet 90 tablet 2 mg tabletIndications: by mouth 8 Anxiety every 8 hours as needed for Itching. 02/22/2018 Discontinued traMADol (ULTRAM) 50 mg TAKE 1 TABLET 120 tablet 0 tabletIndications: BY MOUTH 8 Chronic left-sided low EVERY 6 HOURS back pain with sciatica, NEEDED sciatica laterality unspecified, Pain management 02/22/2018 Discontinued carisoprodol 350 mg TAKE 1 TABLET 90 tablet 0 tabletIndications: Spasm BY MOUTH 8 of muscle THREE TIMES DAILY NEEDED 03/09/2018 Discontinued traMADol (ULTRAM) 50 mg TAKE 1 TABLET 120 tablet 0 tabletIndications: BY MOUTH 8 Chronic left-sided low EVERY 6 HOURS back pain with sciatica, NEEDED. sciatica laterality unspecified, Pain management 03/09/2018 Discontinued carisoprodol 350 mg TAKE 1 TABLET 90 tablet 0 tabletIndications: Spasm BY MOUTH 8 of muscle THREE TIMES DAILY NEEDED. 03/09/2018 Discontinued HYDROcodone-acetaminophen Take 1 tablet 120 tablet 0 (NORCO) 10-325 mg by mouth 8 tabletIndications: every 6 hours Chronic left-sided low as needed for back pain with Pain. right-sided sciatica 04/30/2018 Discontinued nystatin (MYCOSTATIN) APPLY 60 g 9 topical creamIndications: TOPICALLY TO 8 Tinea AFFECTED AREA TWICE DAILY. 03/08/2018 clarithromycin (BIAXIN) Take 1 tablet 28 tablet 0 500 mg tabletIndications: by mouth 2 8 Infection times daily for 14 days. 04/21/2018 Discontinued traMADol (ULTRAM) 50 mg TAKE 1 TABLET 120 tablet 0 tabletIndications: BY MOUTH 8 Chronic left-sided low EVERY 6 HOURS back pain with sciatica, NEEDED. sciatica laterality unspecified, Pain management 04/09/2018 Discontinued carisoprodol 350 mg TAKE 1 TABLET 90 tablet 0 tabletIndications: Spasm BY MOUTH 8 of muscle THREE TIMES DAILY NEEDED. 04/30/2018 Discontinued HYDROcodone-acetaminophen Take 1 tablet 120 tablet 0 (NORCO) 10-325 mg by mouth 8 tabletIndications: every 6 hours Chronic left-sided low as needed for back pain with Pain. right-sided sciatica 06/04/2018 Discontinued albuterol (PROVENTIL) 2.5 Inhale 3 mL 3 mL 0 mg /3 mL (0.083 %) by mouth 8 nebulizer every 6 hours solutionIndications: as needed for Bronchospasm Wheezing. 04/12/2018 Discontinued carisoprodol 350 mg TAKE 1 TABLET 90 tablet 0 tabletIndications: Spasm BY MOUTH 8 of muscle THREE TIMES DAILY NEEDED. 04/30/2018 Discontinued carisoprodol 350 mg TAKE 1 TABLET 90 tablet 0 tabletIndications: Spasm BY MOUTH 8 of muscle THREE TIMES DAILY NEEDED. 05/30/2018 Discontinued traMADol (ULTRAM) 50 mg TAKE 1 TABLET 120 tablet 0 tabletIndications: BY MOUTH 8 Chronic left-sided low EVERY 6 HOURS back pain with sciatica, NEEDED. sciatica laterality unspecified, Pain management 06/04/2018 Discontinued HYDROcodone-acetaminophen Take 1 tablet 120 tablet 0 (NORCO) 10-325 mg by mouth 8 tabletIndications: every 6 hours Chronic left-sided low as needed for back pain with Pain. right-sided sciatica 04/30/2018 Discontinued nystatin (MYCOSTATIN) APPLY 60 g 9 topical creamIndications: TOPICALLY TO 8 Tinea AFFECTED AREA TWICE DAILY. 05/27/2018 Discontinued carisoprodol 350 mg TAKE 1 TABLET 90 tablet 0 tabletIndications: Spasm BY MOUTH 8 of muscle THREE TIMES DAILY NEEDED. 06/04/2018 Discontinued carisoprodol 350 mg TAKE 1 TABLET 90 tablet 0 tabletIndications: Spasm BY MOUTH 8 of muscle THREE TIMES DAILY NEEDED 06/04/2018 Discontinued traMADol (ULTRAM) 50 mg TAKE 1 TABLET 120 tablet 0 tabletIndications: BY MOUTH 8 Chronic left-sided low EVERY 6 HOURS back pain with sciatica, NEEDED sciatica laterality unspecified, Pain management 07/05/2018 Discontinued carisoprodol 350 mg TAKE 1 TABLET 90 tablet 0 tabletIndications: Spasm BY MOUTH 8 of muscle THREE TIMES DAILY NEEDED. 07/05/2018 Discontinued HYDROcodone-acetaminophen Take 1 tablet 120 tablet 0 (NORCO) 10-325 mg by mouth 8 tabletIndications: every 6 hours Chronic left-sided low as needed for back pain with Pain. right-sided sciatica 07/05/2018 Discontinued traMADol (ULTRAM) 50 mg TAKE 1 TABLET 120 tablet 0 tabletIndications: BY MOUTH 9 Chronic left-sided low EVERY 6 HOURS back pain with sciatica, NEEDED sciatica laterality unspecified, Pain management Status Hospital, Clinic, or Ordered Dose Route Frequency Start End Date Other Facility Date Administered Medication Ended ketorolac (TORADOL) 60 mg IM ONCE 10/14/19 injection 60 18 8 mgIndications: 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 Ended triamcinolone acetonide 80 mg IM ONCE 10/14/19 (KENALOG-40) injection 80 18 8 mgIndications: 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 Ended ketorolac (TORADOL) 60 mg IM ONCE 12/09/19 injection 60 18 8 mgIndications: 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 Ended triamcinolone acetonide 40 mg IM ONCE 12/09/19 (KENALOG-40) injection 40 18 8 mgIndications: 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 Ended triamcinolone acetonide 40 mg IM ONCE 01/13/20 (KENALOG-40) injection 40 18 8 mgIndications: Shortness of breath Ended ketorolac (TORADOL) 60 mg IM ONCE 03/09/20 injection 60 18 8 mgIndications: Chronic left-sided low back pain with sciatica, sciatica laterality unspecified Ended triamcinolone acetonide 40 mg IM ONCE 03/09/20 (KENALOG-40) injection 40 18 8 mgIndications: Chronic left-sided low back pain with sciatica, sciatica laterality unspecified Ended albuterol (PROVENTIL) 2.5 2.5 mg IN ONCE 03/30/20 mg /3 mL (0.083 %) 18 8 nebulized solution 2.5 mgIndications: Bronchospasm Ended penicillin g benzathine 1.2 Million IM ONCE 06/04/20 (BICILLIN L-A) injection Units 18 8 1.2 Million UnitsIndications: Infection Ended triamcinolone acetonide 40 mg IM ONCE 07/05/19 (KENALOG-40) injection 40 19 9 mgIndications: Bilateral low back pain with sciatica, sciatica laterality unspecified, unspecified chronicity, Chronic pain of both knees Active Problems Problem Noted Date Dysphagia 05/22/2017 Knee pain 10/19/2014 Overview: 10/19/14-received request for MRI of the L Knee related to DJD, knee pain 04/07, from Dr. Edilson Berry office on this patient with [employer] HMO; request authorization from [facility]; awaiting authorization. Diane Plasencia [id number] 10/27/14-spoke to Michael Pisano/[facility] Preauthorization Department [phone], gave the auth # [id number] effective 10/24/14-12/22/14 to a facility: [facility] [phone]/fax#: [phone]; spoke to Dc/[facility] and scheduled patient 11/01/2014@17:45 PM; message left x2, at patients voicemail advising of the scheduled appointment. Diane Plasencia [id number] 11/08/14-received a fax from Jayne Kaminski/[facility] [phone]/tel [phone] informing that the patient has cancelled the exam with their location and had exam done somewhere else; called patient x2, left messages on his voice mail, advising to call back for further information; [facility] for [facility]; unknown where the patient went. Diane Plasencia [id number] 11/10/14-message left advising to call back; name of the facility for MRI is needed for authorization from [facility]. Diane Kimblehay [id number] 11/13/14-per patient he could not remember the name of the facility; he will ask his later. Diane Ramosjaimehay [id number] 11/27/14-per patient he couldn't remember the name of the facility; per patients , she is not at home, she will call back to give us the name of the facility. Diane Plasencia [id number] 12/19/14 - Case closed. Patient had MRI done @ own choice location. Documentation noted in record. Ivanna Quintana RN # [id number] Skin tags 12/06/2007 Somatization disorder 07/31/2007 BORDERLINE DIABETES MELLITUS 04/11/2006 Chronic low back pain 04/10/2006 Overview: MRI finding from [facility]: Disc spaces and vertebral boday heights are maintained At each lumbar Level.There is dehydration of the L5 -S1 disc the remaining lumbar discs are adequately hydrately . The bone marrow is within normal limits. L1-2 ,L2-3 ,& L3 -4 :There is no disc bulge ,hernition or central spinal stenosis. L4 -5: posterior central 3 mm discal protrusion/hernition presses against the anterior thecal sac over an an approximate 12 mm transverse base. L5 -S 1: broad posterior 2-3 mm discal protrusion /herniation presses againist the anterior medical aspect of the S1 Ever root bilaterally with moderate assocaited posterir marginal spondylosis . This finding is accentuated by Grad ! Retrolisthesis of L5 on S1. The conus termination at the L1 Level and is within normal limits. Impression: Discal pathology is seen at the L4- 5 and L5 -S1 Levels as discribed with findings at the L5 -S1 level accentuated by Grad 1 retrolisthesis of L5 on S1. Depression GERD (gastroesophageal reflux disease) Dyslipidemia WARREN (obstructive sleep apnea) Headache(784.0) Obesity Abdominal complaints Encounters Care Team Description Date Type Specialty Edilson Roberson MD Bilateral low back pain with sciatica, sciatica laterality unspecified, unspecified chronicity (Primary Dx); Chronic pain of both knees; Pain of both hip joints; 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; Hypovitaminosis D; Dermatitis; Chronic left-sided low back pain with sciatica, sciatica laterality unspecified; Pain management; Spasm of muscle 07/05/2018 Office Visit Family Practice Edilson Roberson MD Dermatitis 07/05/2018 Orders Only Family Practice 07/05/2018 Travel Edilson Roberson MD Chronic left-sided low back pain with sciatica, sciatica laterality unspecified; Pain management 06/30/2018 Refill Family Practice Edilson Roberson MD Infection (Primary Dx); Chronic left-sided low back pain with sciatica, sciatica laterality unspecified; Pain management; Spasm of muscle; 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; Bronchospasm; Chronic obstructive pulmonary disease with acute exacerbation; Anxiety; H. pylori infection; Gastroesophageal reflux disease with esophagitis; Mixed hyperlipidemia; PND (post-nasal drip); Other seasonal allergic rhinitis; Cough 06/04/2018 Office Visit Family Practice 06/04/2018 Travel Edilson Roberson MD Chronic left-sided low back pain with sciatica, sciatica laterality unspecified; Pain management 05/30/2018 Refill Family Practice Edilson Roberson MD Spasm of muscle 05/27/2018 Refill [facility] Edilson Roberson MD Pain management (Primary Dx); 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; Tinea; Spasm of muscle 04/30/2018 Office Visit [facility] Edilson Roberson MD Pain management 04/30/2018 Orders Only [facility] Darline Roman RN Chronic left-sided low back pain with sciatica, sciatica laterality unspecified; Pain management 04/21/2018 Refill [facility] Darline Roman RN Spasm of muscle 04/09/2018 Refill [facility] Edilson Roberson MD Encounter for vaccination (Primary Dx); GI problem; Belching; Abdominal fullness; Gastroesophageal reflux disease with esophagitis; Aerophagia; Bronchospasm 03/30/2018 Office Visit Family Practice Darline Roman RN Results 03/22/2018 Telephone 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 Edilson Lara MD 02/16/2018 Refill 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 pylori infection; Gastroesophageal reflux disease with esophagitis 12/08/2017 Office Visit [facility] Edilson Roberson MD 12/03/2017 Refill [facility] Edilson Roberson MD Anxiety; Spasm of muscle 12/01/2017 Refill [facility] Edilson Roberson MD Chronic obstructive pulmonary disease with acute exacerbation 11/28/2017 Refill [facility] Edilson Roberson MD Spasm of muscle; Anxiety; Chronic obstructive pulmonary disease with acute exacerbation 11/26/2017 Refill [facility] Edilson Roberson MD Bilateral low back pain with sciatica, sciatica laterality unspecified, unspecified chronicity (Primary Dx); 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 Edilson Lara MD 09/28/2017 Refill [facility] Edilson Roberson MD Chronic left-sided low back pain with sciatica, sciatica laterality unspecified; Pain management; Anxiety; Spasm of muscle 09/23/2017 Refill [facility] Edilson aLra MD 09/07/2017 Refill [facility] Edilson Roberson MD Spasm of muscle 09/04/2017 Refill [facility] Edilson Roberson MD Chronic left-sided low back pain with sciatica, sciatica laterality unspecified; Pain management; Anxiety 09/04/2017 Refill [facility] Edilson Roberson MD 08/19/2017 Refill [facility] Edilson Roberson MD Spasm of muscle 08/18/2017 Refill [facility] Edilson Roberson MD Cough 08/16/2017 Refill [facility] Edilson Roberson MD 08/11/2017 Refill [facility] Edilson Roberson MD Anxiety; Chronic left-sided low back pain with sciatica, sciatica laterality unspecified; Pain management 08/10/2017 Refill [facility] Edilson Roberson MD Tinea 08/03/2017 Refill [facility] Evelyn Lomax [employer] Pre-clinic Chart Review; [employer] (DME) 07/21/2017 Telephone Social Work after 07/12/2017 Immunizations Name Dates Previously Given Next Due Albuterol 0.083% (3ml) 12/28/2015, 12/14/2015 Bicillin LA (pen G 04/30/2015, 01/16/2015, 12/11/2014, 03/27/2014, Benzathine 01/23/2014, 05/13/2013, 12/27/2012, 08/24/2012, 1,200,000u/2ml) 07/12/2012, 01/13/2012, 06/27/2011, 04/25/2011, 01/13/2011, 05/10/2010, 04/19/2010, 10/12/2009, 07/09/2009, 06/04/2009, 05/07/2009, 04/20/2009, 03/27/2009, 01/15/2009 Ceftriazone 1gm 08/14/2009, 04/10/2009, 11/08/2008, 06/15/2008, Injection 05/18/2008 Influenza Vaccine 05/07/2017 (Deferred: Patient Refused), 04/10/2009, 06/01/2008, 08/17/2007 Influenza Vaccine, 05/07/2017 (Deferred: Patient Refused) Seasonal, Injectable Influenza, 03/30/2018 (Deferred: Patient Refused) Vaccine<FLUCELVAX>(Multi- Dose) KETOROLAC 60 MG/2 ML IM 12/07/2015, 11/05/2015, 10/05/2015, 09/03/2015, 03/27/2014, 01/23/2014 Ketorolac 60mg/2ml Syr 04/20/2009, 04/10/2009 Inj Td Tetanus, diphtheria 06/25/2007 06/25/2017 Toxoids Vaccine Toradol 60mg/2ml Syringe 03/27/2009, 01/29/2009 Triamcinolone 40mg/ml Inj 11/05/2015, 10/05/2015, 09/03/2015, 04/19/2010, 10/12/2009, 01/29/2009 Vitamin B12 05/13/2013, 05/10/2010, 04/19/2010, 07/09/2009, Cyanocobalamin 1000mcg 06/04/2009, 01/29/2009, 01/15/2009, 11/08/2008, Inj 10/09/2008, 08/17/2008, 07/27/2008 Family History Medical History Relation Name Comments Diabetes Father Heart Father Hypertension Father Stroke Father Arthritis Mother Diabetes Mother Heart Mother Hypertension Mother Relation Name Status Comments Father Alive Mother Alive Social History Date Tobacco Use Types Packs/Day Years Used Never Smoker Smokeless Tobacco: Never Used Tobacco Cessation: Counseling Given: No Alcohol Use Drinks/Week oz/Week Comments No 0 Standard 0.0 quit drinks or equivalent Sex Assigned at Date Recorded Not on file Industry Job Start Date Occupation Not on file Not on file Not on file Travel End Travel History Travel Start No recent travel history available. Last Filed Vital Signs Time Taken Vital Sign Reading 07/05/2018 9:33 AM ACCOUNT UNDERWRITER Blood Pressure 125/85 07/05/2018 9:33 AM ACCOUNT UNDERWRITER Pulse 79 07/05/2018 9:33 AM ACCOUNT UNDERWRITER Temperature 36.7 C (98 F) 07/05/2018 9:33 AM ACCOUNT UNDERWRITER Respiratory Rate 18 01/31/2018 7:10 AM CDT Oxygen Saturation 100% - Inhaled Oxygen - Concentration 07/05/2018 9:33 AM ACCOUNT UNDERWRITER Weight 116.6 kg (257 lb) 07/05/2018 9:33 AM ACCOUNT UNDERWRITER Height 172.7 cm (5' 8") 07/05/2018 9:33 AM ACCOUNT UNDERWRITER Body Mass Index 39.08 Plan of Treatment Care Team Description Date Type Specialty 08/06/2018 Lab Appointment Lab Edilson Roberson MD [address] [place] [address] [phone] [place] Refill 08/10/2018 Office Visit Family Practice 10/08/2018 Office Visit Dermatology Goals Goal Patient Associated Recent Progress Patient-Stat Author Goal Type Problems ed? Feel more energetic Lifestyle No Eugenia Madera, Director Of Student Aid Reduce pain Lifestyle Yes Diane Madera Procedures Comments Procedure Name Priority Date/Time Associated Diagnosis URINE DRUG SCREEN Routine 06/04/2018 Pain management 1:09 PM ACCOUNT UNDERWRITER URINE DRUG SCREEN Routine 04/30/2018 Pain management 2:08 PM CDT GASTRIN, SERUM Routine 03/30/2018 Encounter for vaccination 3:00 PM CDT GI problem Belching Abdominal fullness Gastroesophageal reflux disease with esophagitis Aerophagia HIV-1/HIV-2 ROUTINE Routine 03/30/2018 Encounter for vaccination SCREENING 3:00 PM CDT GI problem Belching Abdominal fullness Gastroesophageal reflux disease with esophagitis Aerophagia HEPATITIS PANEL Routine 03/30/2018 Encounter for vaccination 3:00 PM CDT GI problem Belching Abdominal fullness Gastroesophageal reflux disease with esophagitis Aerophagia B NATRIURETIC PEPT Routine 03/30/2018 Encounter for vaccination 3:00 PM CDT GI problem Belching Abdominal fullness Gastroesophageal reflux disease with esophagitis Aerophagia LIPASE Routine 03/30/2018 Encounter for vaccination 3:00 PM CDT GI problem Belching Abdominal fullness Gastroesophageal reflux disease with esophagitis Aerophagia AMYLASE Routine 03/30/2018 Encounter for vaccination 3:00 PM CDT GI problem Belching Abdominal fullness Gastroesophageal reflux disease with esophagitis Aerophagia ENDOMYSIAL AB IGA Routine 03/30/2018 Encounter for vaccination 3:00 PM CDT GI problem Belching Abdominal fullness Gastroesophageal reflux disease with esophagitis Aerophagia TSH Routine 03/30/2018 Encounter for vaccination 3:00 PM CDT GI problem Belching Abdominal fullness Gastroesophageal reflux disease with esophagitis Aerophagia HEMOGLOBIN A1C Routine 03/30/2018 Encounter for vaccination 3:00 PM CDT GI problem Belching Abdominal fullness Gastroesophageal reflux disease with esophagitis Aerophagia GLUCOSE, FASTING Routine 03/30/2018 Encounter for vaccination 3:00 PM CDT GI problem Belching Abdominal fullness Gastroesophageal reflux disease with esophagitis Aerophagia ELECTROLYTES Routine 03/30/2018 Encounter for vaccination 3:00 PM CDT GI problem Belching Abdominal fullness Gastroesophageal reflux disease with esophagitis Aerophagia UREA NITROGEN/CREA Routine 03/30/2018 Encounter for vaccination 3:00 PM CDT GI problem Belching Abdominal fullness Gastroesophageal reflux disease with esophagitis Aerophagia UA CHEMISTRIES Routine 03/30/2018 Encounter for vaccination 3:00 PM CDT GI problem Belching Abdominal fullness Gastroesophageal reflux disease with esophagitis Aerophagia LIVER PROFILE Routine 03/30/2018 Encounter for vaccination 3:00 PM CDT GI problem Belching Abdominal fullness Gastroesophageal reflux disease with esophagitis Aerophagia LIPID PROFILE Routine 03/30/2018 Encounter for vaccination 3:00 PM CDT GI problem Belching Abdominal fullness Gastroesophageal reflux disease with esophagitis Aerophagia CBC Routine 03/30/2018 Encounter for vaccination 3:00 PM CDT GI problem Belching Abdominal fullness Gastroesophageal reflux disease with esophagitis Aerophagia URINE DRUG SCREEN STAT 02/22/2018 Pain management 9:43 AM CDT VBG POC Routine 01/31/2018 5:[address] ABDOMEN AND PELVIS Routine 01/31/2018 Abdominal complaints CONTRAST 5:03 AM CDT UA CHEMISTRIES STAT 01/31/2018 3:50 AM CDT BMP POC Routine 01/30/2018 4:09 PM CDT TROPONIN I POC Routine 01/30/2018 4:07 PM CDT HIV-1/HIV-2 ROUTINE STAT 01/30/2018 SCREENING 4:01 PM CDT LIPASE STAT 01/30/2018 4:01 PM CDT LIVER PROFILE STAT 01/30/2018 4:01 PM CDT CBC/DIFF STAT 01/30/2018 4:01 PM CDT 12 LEAD EKG Routine 01/30/2018 3:56 PM CDT URINE DRUG SCREEN Routine 12/08/2017 Pain management 9:11 AM CDT after 07/12/2017 Results * URINE DRUG SCREEN (06/04/2018 1:09 PM ACCOUNT UNDERWRITER) Only the most recent of 4 results within the time period is included. Amphetamine Negative NEG BT MAIN-STATION Comment: 1 Calibrated Standard: D-Methamphetamine Positive if urine level >fg=3051 ng/mL Test performed on [id number] using EMIT Immunoassay Barbiturate Negative NEG BT MAIN-STATION Comment: 1 Calibrated Standard: Secobarbital Positive if urine level is >tp=680 ng/mL Test performed on [id number] using EMIT Immunoassay Benzodiazepine Negative NEG BT MAIN-STATION Comment: 1 Calibrated Standard: Lormethazepam Positive if urine level is >ar=422 ng/mL Test performed on [id number] using EMIT Immunoassay Cannabinoid Negative NEG BT MAIN-STATION Comment: 1 Calibrated Standard: 11 nor-delta(9)-THC carboxylic a Positive if urine level >or=50 Test performed on [id number] using EMIT Immunoassay Cocaine Negative NEG BT MAIN-STATION Comment: 1 Calibrated Standard: Benzoylecgonine Positive if urine level >qh=455 Test performed on [id number] using EMIT Immunoassay Opiate, Ur Negative NEG BT MAIN-STATION Comment: 1 Calibrated Standard: Morphine Positive if urine level >fg=127 Test performed on [id number] using EMIT Immunoassay PCP Negative NEG BT MAIN-STATION Comment: 1 Calibrated Standard: Phencyclidine Positive if urine level >or=25 Test performed on [id number] using EMIT Immunoassay Urine Toxicology Screen results are to be used only for Medical purposes. Specimen Urine Performing Organization Address City/State/[facility] Phone Number [facility] BT MAIN-STATION 1 * HIV-1/HIV-2 ROUTINE SCREENING (03/30/2018 3:00 PM CDT) Only the most recent of 2 results within the time period is included. [facility] HIV-1/HIV-2 Negative NEG BT MAIN-STATION 3 Performing Organization Address [facility] Phone Number [facility]ME[facility] BT MAIN-STATION 3 * GASTRIN, SERUM (03/30/2018 3:00 PM CDT) Pathologist [facility] Gastrin, Serum 25 LABORATORY Reference range: 0 to 115 CORPORATION OF Unit: pg/mL RAMO (note) Siemens Immulite 2000 Immunochemiluminometric assay (ICMA) Specimen Blood Performing Organization Address [facility] Phone Number [employer] CORPORATION OF [address], [place] [id number] RAMO 145 * HEMOGLOBIN A1C (03/30/2018 3:00 PM CDT) [facility] Hemoglobin A1c 5.4 4.3 - 6.1 % DIAGNOSTIC IMMUNOLOGY Est Average 108.3 mg/dL BT DIAGNOSTIC Gluc IMMUNOLOGY Specimen Blood Performing Organization Address [facility] Phone Number [facility] DIAGNOSTIC IMMUNOLOGY * B NATRIURETIC PEPT (03/30/2018 3:00 PM CDT) [facility] B Natriuretic 25 <101 pg/mL BT MAIN-STATION Pept 1 Specimen Blood Performing Organization Address [facility] Phone Number [facility]ME[facility] BT MAIN-STATION 1 * ENDOMYSIAL AB IGA (03/30/2018 3:00 PM CDT) [facility] Endomysial Ab Negative LABORATORY IgA Reference range: Negative CORPORATION OF RAMO Specimen Blood Performing Organization Address [facility] Phone Number [facility] COR[facility] OF [address] [place] [address] RMAO 145 * TSH (03/30/2018 3:00 PM CDT) [facility] TSH 0.94 0.57 - 3.74 uIU/mL BT MAIN-STATION 1 Specimen Blood Performing Organization Address [facility] Phone Number [facility]ME[facility] BT MAIN-STATION 1 * UA CHEMISTRIES (03/30/2018 3:00 PM CDT) Only the most recent of 2 results within the time period is included. Color Yellow BT MAIN-STATION 4 Clarity Clear BT MAIN-STATION 4 Spec [place] 1.010 1.001 - 1.035 BT MAIN-STATION 4 pH 7.0 5 - 8 BT MAIN-STATION 4 Protein Negative NEG BT MAIN-STATION 4 Glucose Negative NEG BT MAIN-STATION 4 Ketone Negative NEG BT MAIN-STATION 4 Bilirubin Negative NEG BT MAIN-STATION 4 Nitrate Negative NEG BT MAIN-STATION 4 Urobilinogen <1.0 0.2 - 1.0 EU/dL BT MAIN-STATION 4 Leukocyte Negative NEG BT MAIN-STATION 4 Blood Negative NEG BT MAIN-STATION 4 Specimen Urine Performing Organization Address [facility] Phone Number MISYS BT MAIN-STATION 4 * ELECTROLYTES (03/30/2018 3:00 PM CDT) Sodium 138 136 - 145 mmol/L BT MAIN-STATION 1 Potassium 3.8 3.5 - 5.1 mmol/L BT MAIN-STATION 1 Chloride 100 98 - 107 mmol/L BT MAIN-STATION 1 CO2 29 21 - 31 mmol/L BT MAIN-STATION 1 Anion Gap 9 BT MAIN-STATION 1 Specimen Blood Performing Organization Address [facility] Phone Number MISYS BT MAIN-STATION 1 * LIVER PROFILE (03/30/2018 3:00 PM CDT) Only the most recent of 2 results within the time period is included. T Protein 6.1 6.0 - 8.3 g/dL BT MAIN-STATION 1 Albumin 3.7 (L) 4.2 - 5.5 g/dL BT MAIN-STATION 1 T Bilirubin 0.8 0.2 - 1.2 mg/dL BT MAIN-STATION 1 Alk Phos 56 34 - 104 U/L BT MAIN-STATION 1 AST 12 (L) 13 - 39 U/L BT MAIN-STATION 1 ALT 13 7 - 52 U/L BT MAIN-STATION 1 D Bilirubin 0.2 0.0 - 0.2 mg/dL BT MAIN-STATION 1 Specimen Blood Performing Organization Address [facility] Phone Number MISYS BT MAIN-STATION 1 * LIPID PROFILE (03/30/2018 3:00 PM CDT) Cholesterol 125 mg/dL BT MAIN-STATION Comment: 1 REFERENCE RANGE: Desirable: <200 mg/dL Borderline: 200-240 mg/dL High Risk: >240 mg/dL Triglyceride 62 <150 mg/dL BT MAIN-STATION Comment: 1 REFERENCE RANGE: Normal: <150 mg/dL Borderline High: 150-199 mg/dL High: 200-499 mg/dL Very High: >kx=110 mg/dL HDL 40 mg/dL BT MAIN-STATION Comment: 1 Increased CHD risk: <40 mg/dL Decreased CHD risk: >60 mg/dL LDL 73 mg/dL BT MAIN-STATION Comment: 1 REFERENCE RANGE: Optimal: <100 mg/dL Near Optimal: 100-129 mg/dL Borderline High: 130-159 mg/dL High: 160-189 mg/dL Very High: >cb=360 mg/dL Specimen Blood Performing Organization Address [facility] Phone Number [facility] MAIN[facility] 1 * LIPASE (03/30/2018 3:00 PM CDT) Only the most recent of 2 results within the time period is included. Lipase 16 11 - 82 U/L BT MAIN-STATION 1 Specimen Blood Performing Organization Address [facility] Phone Number [facility] MA[facility] 1 * HEPATITIS PANEL (03/30/2018 3:00 PM CDT) HCV IgG Negative NEG BT MAIN-STATION 3 HBsAg Negative NEG BT MAIN-STATION 3 HAV, IgM Negative NEG BT MAIN-STATION 3 HBcAb, IgM Negative NEG BT MAIN-STATION 3 Specimen Blood Performing Organization Address [facility] Phone Number [facility] BT MAIN-STATION 3 * GLUCOSE, FASTING (03/30/2018 3:00 PM CDT) Glucose, 90 74 - 106 mg/dL BT MAIN-STATION Fasting 1 Specimen Blood Performing Organization Address [facility] Phone Number [facility] * CBC (03/30/2018 3:00 PM CDT) WBC 7.7 4.5 - 12.0 K/uL BT MAIN-STATION 2 RBC 4.54 (L) 4.60 - 6.20 M/uL BT MAIN-STATION 2 Hemoglobin 15.2 14.0 - 18.0 g/dL BT MAIN-STATION 2 Hematocrit 46.1 40.0 - 54.0 % BT MAIN-STATION 2 MCV 102 (H) 82 - 92 fL BT MAIN-STATION 2 MCH 33.5 (H) 27.0 - 31.0 pg BT MAIN-STATION 2 MCHC 33.0 32.0 - 36.0 g/dL BT MAIN-STATION 2 RDW 49.3 (H) 35.1 - 43.9 fL BT MAIN-STATION 2 Platelet 153 150 - 400 K/uL BT MAIN-STATION 2 Mean Platelet 11.2 9.4 - 12.4 fL BT MAIN-STATION Volume 2 Percent NRBC 0.0 BT MAIN-STATION 2 Absolute NRBC 0.00 BT MAIN-STATION 2 Specimen Blood Performing Organization Address City/[facility]/Zipcode Phone Number MISYS BT MAIN-STATION 2 * UREA NITROGEN/CREA (03/30/2018 3:00 PM CDT) Urea Nitrogen 14 7 - 25 mg/dL BT MAIN-STATION 1 Creatinine 0.80 0.7 - 1.3 mg/dL BT MAIN-STATION 1 GFR, Estimated >60 mL/min/1.73 m2 BT MAIN-STATION 1 GFR, Estim, >60 mL/min/1.73 m2 BT MAIN-STATION Afr-Am 1 Specimen Other (Specify in Comments) Performing Organization Address [facility] Phone Number MISYS BT MAIN-STATION 1 * AMYLASE (03/30/2018 3:00 PM CDT) Amylase 38 29 - 103 U/L BT MAIN-STATION 1 Specimen Blood Performing Organization Address [facility] Phone Number MISYS BT MAIN-STATION 1 * VBG POC (01/31/2018 5:18 AM CDT) pH, David POC 7.36Comment: Physician 7.33 - 7.43 BT MAIN-STATION Notified 1 pCO2, David POC 46.0 38.0 - 50.0 mm Hg BT MAIN-STATION 1 pO2, David POC 29 (L) 50 - 75 mm Hg BT MAIN-STATION 1 Base Excess, 0 mmol/L BT MAIN-STATION David POC 1 HCO3, David POC 25.8 22.0 - 26.0 mmol/L BT MAIN-STATION 1 % Sat, David POC 53 (L) 60 - 85 % BT MAIN-STATION 1 Lactic Acid, 0.63 0.4 - 2.0 mmol/L BT MAIN-STATION David POC 1 Sample Type David BT MAIN-STATION 1 TCO2, DAVID POC 27 21 - 32 mmol/L BT MAIN-STATION 1 Performing Organization Address City/State/Zipcode Phone Number MISYS BT MAIN-STATION 1 * CT ABDOMEN AND PELVIS CONTRAST (01/31/2018 5:03 AM CDT) Impressions Performed At IMPRESSION: SMS No acute abdominal or pelvic abnormalities. Dictated By: Lyubov Martines MD, 01/31/2018 5:15 AM I have reviewed the study and agree with the findings in this report. Signed By: Sonia Contreras MD, 01/31/2018 5:17 AM Narrative Performed At EXAM: CT Abdomen and Pelvis WITH contrast SMS INDICATION: abdominal pain COMPARISON: None available TECHNIQUE: [...] Mild lumbar degenerative changes. SOFT TISSUES: Unremarkable. Procedure Note Interface, Rad/Mammog In - 01/31/2018 5:22 AM [...] By: Sonia Contreras MD, 01/31/2018 5:17 AM Performing Organization Address City/State/Zipcode Phone Number SMS * BMP POC (01/30/2018 4:09 PM CDT) CO2 POC 26Comment: Physician Notified 21 - 32 mmol/L BT MAIN-STATION 1 Chloride POC 104 98 - 107 mmol/L BT MAIN-STATION 1 Potassium POC 3.6 3.50 - 5.10 mmol/L BT MAIN-STATION 1 Sodium POC 143 136 - 145 mmol/L BT MAIN-STATION 1 Glucose POC 93 74 - 106 mg/dL BT MAIN-STATION 1 Urea Nitrogen 18 7 - 18 mg/dL BT MAIN-STATION POC 1 Creatinine POC 1.2 0.6 - 1.3 mg/dL BT MAIN-STATION 1 Calcium Ionized 1.22 1.15 - 1.29 mmol/L BT MAIN-STATION POC 1 Hemoglobin POC 13.9 (L) 14.0 - 18.0 g/dL BT MAIN-STATION 1 Hematocrit POC 41.0 40.0 - 54.0 % BT MAIN-STATION 1 GFR, Estimated >60 mL/min/1.73 m2 BT MAIN-STATION 1 GFR, Estim, >60 mL/min/1.73 m2 BT MAIN-STATION Afr-Am 1 Performing Organization Address City/State/Zipcode Phone Number MISYS BT MAIN-STATION 1 * TROPONIN I POC (01/30/2018 4:07 PM CDT) Troponin POC 0.00Comment: Physician 0.00 - 0.08 ng/mL BT MAIN-STATION Notified 1 Performing Organization Address City/State/Zipcode Phone Number MISYS BT MAIN-STATION 1 * CBC/DIFF (01/30/2018 4:01 PM CDT) WBC 8.4 4.5 - 12.0 K/uL BT MAIN-STATION 2 RBC 4.15 (L) 4.60 - 6.20 M/uL BT MAIN-STATION 2 Hemoglobin 13.5 (L) 14.0 - 18.0 g/dL BT MAIN-STATION 2 Hematocrit 39.1 (L) 40.0 - 54.0 % BT MAIN-STATION 2 MCV 94 (H) 82 - 92 fL BT MAIN-STATION 2 MCH 32.5 (H) 27.0 - 31.0 pg BT MAIN-STATION 2 MCHC 34.5 32.0 - 36.0 g/dL BT MAIN-STATION 2 RDW 45.1 (H) 35.1 - 43.9 fL BT MAIN-STATION 2 Platelet 138 (L) 150 - 400 K/uL BT MAIN-STATION 2 Mean Platelet 10.6 9.4 - 12.4 fL BT MAIN-STATION Volume 2 Percent NRBC 0.0 BT MAIN-STATION 2 Absolute NRBC 0.00 BT MAIN-STATION 2 Neutrophil 82.3 (H) 34.0 - 67.9 % BT MAIN-STATION 2 Lymphocyte 11.7 (L) 21.8 - 50.0 % BT MAIN-STATION 2 Monocyte 5.5 5.3 - 12.0 % [facility] 2 Eosinophil 0.2 (L) 0.8 - 5.0 % [facility] 2 Basophil 0.1 (L) 0.2 - 1.2 % [facility] 2 Pct Immat Gran 0.2 0.0 - 0.5 [facility] 2 Neutrophil, Abs 6.89 (H) 1.78 - 5.36 K/uL [facility] 2 Lymphocyte, Abs 0.98 (L) 1.32 - 3.57 K/uL [facility] 2 Monocyte, Abs 0.46 0.30 - 0.82 K/uL [facility] 2 Eosinophil, Abs 0.02 (L) 0.04 - 0.54 K/uL [facility] 2 Basophil, Abs 0.01 0.01 - 0.08 K/uL [facility] 2 Absol Immat 0.02 0.00 - 0.03 K/uL [facility] Gran 2 Specimen Blood Performing Organization Address City/State/Zipcode Phone Number [facility] 2 * 12 LEAD EKG (01/30/2018 3:56 PM CDT) 12 LEAD EKG FOR SMS [facility] Test Date:2018-01-30 Pat Name: REINIER HEMPHILL Department: Room: Gender: Review Scheduling Coordinator: [id number] :[id number] 01-27 Requested By: Order Number: Daniele vang MD: Carmen Joseph Measurements Intervals [place] Rate: 60 P:-11 DC: 165 QRS: -21 QRSD: 94 T:43 QT: 368 QTc:370 Interpretive Statements SINUS RHYTHM BORDERLINE LEFT AXIS DEVIATION LOW QRS VOLTAGE IN PRECORDIAL LEADS PATTERN CONSISTENT WITH PULMONARY DISEASE INCOMPLETE RIGHT BUNDLE BRANCH BLOCK Electronically Signed On 01-30-18 16:17:20 CDT by Carmen Joseph Performing Organization Address City/State[facility] Phone Number [facility] after 07/12/2017 Insurance Type Payer Benefit Subscriber ID Effective Phone Address Plan / Dates Group [employer] HMO [employer] xxxxxxxxx 2017-P [phone] [address] [id number] [place] [address]
--- OUTSIDE RECORDS SUMMARY | 2018-12-20 16:18 | XMS REPORT | Clinical Summary ---
Author Author [facility] Organization [facility] Address Unknown Phone Unavailable Care Team Providers Care Rn Acute Name Role Phone Edilson Roberson MD PCP [...] times daily Abdominal fullness (before meals). Active albuterol (PROVENTIL) 2.5 Inhale 3 mL [...] 8 hours as needed for Itching. Active atorvastatin (LIPITOR) 40 Take 1 tablet [...] THREE TIMES DAILY NEEDED FOR COUGH. Active ergocalciferol (VITAMIN Take 1 12 capsule 2 D2) 50,000 unit capsule by 9 capsuleIndications: mouth weekly. Hypovitaminosis D Active calcipotriene (DOVONEX) Apply to 60 g 3 0.005 % topical affected area 9 creamIndications: 2 times Dermatitis daily. Active Omeprazole 40 mg Take 1 90 capsule 2 capsuleIndications: H. capsule by 9 pylori infection, mouth daily. Gastroesophageal reflux disease with esophagitis Active traMADol (ULTRAM) 50 mg Take 1 tablet 120 tablet 2 tabletIndications: by mouth 9 Chronic left-sided low every 6 hours back pain with sciatica, as needed for sciatica laterality Pain. unspecified, Pain management Active carisoprodol 350 mg TAKE 1 TABLET 90 tablet 2 tabletIndications: Spasm BY MOUTH 9 of muscle THREE TIMES DAILY NEEDED. Active nystatin (MYCOSTATIN) APPLY 60 g 9 topical creamIndications: TOPICALLY TO 9 Tinea AFFECTED AREA TWICE DAILY. Active imiquimod (ALDARA) 5 % Apply 1 12 Each 2 topical cream Packet to 9 packetIndications: Other affected area viral warts 3 times weekly. Active HYDROcodone-acetaminophen Take 1 tablet 120 tablet 0 (NORCO) 10-325 mg by mouth 9 tabletIndications: every 6 hours Chronic left-sided low as needed for back pain with Pain. right-sided sciatica, Bilateral leg pain Active traMADol (ULTRAM) 50 mg Take 1 tablet 120 tablet 0 tabletIndications: by mouth 9 Chronic left-sided low every 6 hours back pain with sciatica, as needed for sciatica laterality Pain. unspecified, Pain management 11/28/2017 Discontinued albuterol (PROVENTIL) 2.5 Inhale 3 mL 300 mL 3 mg /3 mL (0.083 %) by mouth 6 nebulizer every 4 hours solutionIndications: as needed for Chronic obstructive Wheezing or pulmonary disease with Shortness of acute exacerbation Breath. 12/08/2017 Discontinued Omeprazole 40 mg Take 1 90 capsule 2 capsuleIndications: H. capsule by 7 pylori infection, mouth daily. Gastroesophageal reflux disease with esophagitis 07/26/2018 Discontinued amoxicillin (AMOXIL) 500 Take 1 30 capsule 0 mg capsuleIndications: capsule by 7 Infection mouth 3 times daily for 10 days. 07/05/2018 Discontinued ergocalciferol (VITAMIN Take 1 12 [...] mouth at 7 Mixed hyperlipidemia bedtime nightly. 10/13/2017 Discontinued nystatin (MYCOSTATIN) APPLY 60 g 9 topical creamIndications: TOPICALLY TO 8 Tinea AFFECTED AREA TWICE DAILY 06/04/2018 Discontinued benzonatate (TESSALON) TAKE 2 90 capsule 0 100 mg CAPSULES BY 8 capsuleIndications: Cough MOUTH THREE TIMES DAILY NEEDED FOR COUGH 10/13/2017 Discontinued traMADol (ULTRAM) 50 mg TAKE [...] 8 of muscle THREE TIMES DAILY NEEDED. 08/27/2018 Discontinued nystatin (MYCOSTATIN) APPLY 60 g 9 topical creamIndications: TOPICALLY TO 8 Tinea AFFECTED AREA TWICE DAILY. 06/04/2018 Discontinued carisoprodol 350 mg TAKE 1 TABLET 90 tablet 0 tabletIndications: Spasm BY MOUTH 8 of muscle THREE TIMES DAILY NEEDED 06/04/2018 Discontinued traMADol (ULTRAM) 50 mg TAKE 1 TABLET 120 tablet 0 tabletIndications: BY MOUTH 8 Chronic left-sided low EVERY 6 HOURS back pain with sciatica, NEEDED sciatica laterality unspecified, Pain management 10/01/2018 Discontinued traMADol (ULTRAM) 50 mg Take 1 tablet 120 tablet 0 tabletIndications: by mouth 8 Chronic left-sided low every 6 hours back pain with sciatica, as needed for sciatica laterality Pain. unspecified, Pain management 07/05/2018 Discontinued carisoprodol 350 mg TAKE 1 TABLET 90 tablet 0 tabletIndications: Spasm BY MOUTH 8 of muscle THREE TIMES DAILY NEEDED. 07/05/2018 Discontinued HYDROcodone-acetaminophen Take 1 tablet 120 tablet 0 (NORCO) 10-325 mg by mouth 8 tabletIndications: every 6 hours Chronic left-sided low as needed for back pain with Pain. right-sided sciatica 07/26/2018 Discontinued Omeprazole 40 mg Take 1 90 capsule 2 capsuleIndications: H. capsule by 8 pylori infection, mouth daily. Gastroesophageal reflux disease with esophagitis 07/05/2018 Discontinued traMADol (ULTRAM) 50 mg TAKE 1 TABLET 120 tablet 0 tabletIndications: BY MOUTH 9 Chronic left-sided low EVERY 6 HOURS back pain with sciatica, NEEDED sciatica laterality unspecified, Pain management 07/26/2018 Discontinued HYDROcodone-acetaminophen Take 1 tablet 120 tablet 0 (NORCO) 10-325 mg by mouth 9 tabletIndications: every 6 hours Chronic left-sided low as needed for back pain with Pain. right-sided sciatica 07/26/2018 Discontinued traMADol (ULTRAM) 50 mg Take 1 tablet 120 tablet 0 tabletIndications: by mouth 9 Chronic left-sided low every 6 hours back pain with sciatica, as needed for sciatica laterality Pain. unspecified, Pain management 07/26/2018 Discontinued carisoprodol 350 mg TAKE 1 TABLET 90 tablet 0 tabletIndications: Spasm BY MOUTH 9 of muscle THREE TIMES DAILY NEEDED. 08/27/2018 Discontinued HYDROcodone-acetaminophen Take 1 tablet 120 tablet 0 (NORCO) 10-325 mg by mouth 9 tabletIndications: every 6 hours Chronic left-sided low as needed for back pain with Pain. right-sided sciatica 08/27/2018 Discontinued traMADol (ULTRAM) 50 mg Take 1 tablet 120 tablet 0 tabletIndications: by mouth 9 Chronic left-sided low every 6 hours back pain with sciatica, as needed for sciatica laterality Pain. unspecified, Pain management 08/27/2018 Discontinued carisoprodol 350 mg TAKE 1 TABLET 90 tablet 0 tabletIndications: Spasm BY MOUTH 9 of muscle THREE TIMES DAILY NEEDED. 08/09/2018 amoxicillin (AMOXIL) 500 Take 1 42 capsule 0 mg capsuleIndications: capsule by 9 Infection, Tooth mouth 3 times infection daily for 14 days. 09/28/2018 Discontinued HYDROcodone-acetaminophen Take 1 tablet 120 tablet 0 (NORCO) 10-325 mg by mouth 9 tabletIndications: every 6 hours Chronic left-sided low as needed for back pain with Pain. right-sided sciatica 09/03/2018 mupirocin (BACTROBAN) 2 % Apply to 22 g 2 ointmentIndications: Skin affected area 9 infection 3 times daily for 7 days. 10/01/2018 Discontinued traMADol (ULTRAM) 50 mg Take 1 tablet 120 tablet 0 tabletIndications: by mouth 9 Chronic left-sided low every 6 hours back pain with sciatica, as needed for sciatica laterality Pain. unspecified, Pain management Status Hospital, Clinic, or [...] unspecified chronicity, Chronic pain of both knees Ended triamcinolone acetonide 40 mg IM ONCE 08/28/19 (KENALOG-40) injection 40 19 9 mgIndications: 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, Chronic left-sided low back pain with sciatica, sciatica laterality unspecified Active Problems Problem Noted Date Dysphagia 05/22/2017 Knee pain 10/19/2014 Overview: 10/19/14-received request for MRI of the L Knee related to DJD, knee pain 04/07, from Dr. Edilson Berry office on this patient with [employer] HMO; request authorization from [facility]; awaiting authorization. Diane Richardehsan [id number] 10/27/14-spoke to Michael Pisano/[facility] Preauthorization Department [phone], gave the auth # [id number] effective 10/24/14-12/22/14 to a facility: [facility] 442 064 2454/fax#: [phone]; spoke to Dc/[facility] and scheduled patient 11/01/2014@17:45 PM; message left x2, at patients voicemail advising of the scheduled appointment. Diane Plasencia [id number] 11/08/14-received a fax from Jayne Kaminski/[facility] [phone]/tel [phone] informing that the patient has cancelled the exam with their location and had exam done somewhere else; called patient x2, left messages on his voice mail, advising to call back for further information; authorization from [employer] was for [facility]; unknown where the patient went. Diane Plasencia [id number] 11/10/14-message left advising to call back; name of the facility for MRI is needed for authorization from [employer]. Diane Plasencia [id number] 11/13/14-per patient he could not remember the name of the facility; he will ask his later. Diane Plasencia [id number] 11/27/14-per patient he couldn't remember the name of the facility; per patients , she is not at home, she will call back to give us the name of the facility. Diane Plasencia [id number] 12/19/14 - Case closed. Patient had MRI done @ own choice location. Documentation noted in record. Ivanna Quintana RN # [id number] Skin tags 12/06/2007 Somatization disorder 07/31/2007 BORDERLINE [...] Description Date Type Specialty Edilson Roberson MD Chronic left-sided low back pain with sciatica, sciatica laterality unspecified; Pain management 10/01/2018 Orders Only Family Practice Ayaka Jaffe RN Chronic left-sided low back pain with sciatica, sciatica laterality unspecified; Pain management 10/01/2018 Refill Family Practice Tammy Srivastava, NATANAEL Refill Request 09/28/2018 Telephone [facility] Edilson Roberson MD Bilateral leg pain (Primary Dx); 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 09/28/2018 Refill Family Practice 09/27/2018 Travel Edilson Roberson MD Pain management 09/24/2018 Orders Only [facility] Edilson Roberson MD Other viral warts (Primary Dx); Pain management; 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; Chronic left-sided low back pain with sciatica, sciatica laterality unspecified; Spasm of muscle; Tinea; Skin infection 08/27/2018 Office Visit [facility] 08/27/2018 Edilson Vaz MD Pain management 07/30/2018 Orders Only Family Practice Edilson Roberson MD Tooth infection (Primary Dx); 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 pylori infection; Gastroesophageal reflux disease with esophagitis; Infection 07/26/2018 Office Visit Family Practice Edilson Roberson MD Bilateral low back pain [...] sciatica laterality unspecified; Pain management 06/30/2018 Refill [facility] Edilson Roberson MD Infection (Primary Dx); Chronic left-sided low back pain with sciatica, sciatica laterality unspecified; Pain management; Spasm of muscle; 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; Bronchospasm; Chronic obstructive pulmonary disease with acute exacerbation; Anxiety; H. pylori infection; Gastroesophageal reflux disease with esophagitis; Mixed hyperlipidemia; PND (post-nasal drip); Other seasonal allergic rhinitis; Cough 06/04/2018 Office Visit Family Practice 06/04/2018 Edilson Vaz MD Chronic left-sided low back pain with sciatica, sciatica laterality unspecified; Pain management 05/30/2018 Refill [facility] Edilson Roberson MD Spasm of muscle 05/27/2018 Refill [facility] Edilson Roberson MD Pain management (Primary Dx); 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; Tinea; Spasm of muscle 04/30/2018 Office Visit Family Practice Edilson Roberson MD Pain management 04/30/2018 Orders Only [facility] Darline Roman RN Chronic left-sided low back pain with sciatica, sciatica laterality unspecified; Pain management 04/21/2018 Refill Family Practice Darline Roman RN Spasm of muscle 04/09/2018 Refill [facility] Edilson Roberson MD Encounter for vaccination (Primary Dx); GI problem; Belching; Abdominal fullness; Gastroesophageal reflux disease with esophagitis; Aerophagia; Bronchospasm 03/30/2018 Office Visit Family Practice Darline Roman RN Results 03/22/2018 Telephone [facility] Edilson Roberson MD Chronic left-sided low [...] with right-sided sciatica; Tinea 02/22/2018 Office Visit [facility] Edilson Roberson MD Pain management 02/22/2018 Orders Only [facility] Edilson Roberson MD 02/16/2018 Refill [facility] Edilson Roberson MD Chronic left-sided low back pain with sciatica, sciatica laterality unspecified; Pain management; Spasm of muscle 02/15/2018 Refill [facility] Navin Pisano MD Gastroesophageal reflux disease with [...] Gastritis and gastroduodenitis; Anxiety 01/12/2018 Office Visit [facility] Edilson Roberson MD Skin infection (Primary Dx); Spasm of muscle; 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 pylori infection; Gastroesophageal reflux disease with esophagitis 12/08/2017 Office Visit [facility] Edilson Lara MD 12/03/2017 Refill [facility] Edilson Roberson MD Anxiety; Spasm of muscle 12/01/2017 Refill [facility] Edilson Roberson MD Chronic obstructive pulmonary disease with acute exacerbation 11/28/2017 Refill [facility] Edilson Roberson MD Spasm of muscle; Anxiety; Chronic obstructive pulmonary disease with acute exacerbation 11/26/2017 Refill [facility] Edilson Roberson MD Bilateral low back pain with sciatica, sciatica laterality unspecified, unspecified chronicity (Primary Dx); 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; Anxiety; Spasm of muscle; Chronic left-sided low back pain with sciatica, sciatica laterality unspecified; Pain management; Tinea; Mixed hyperlipidemia; PND (post-nasal drip); Other seasonal allergic rhinitis 10/13/2017 Office Visit Family Practice after 10/09/2017 Immunizations Name Dates Previously Given Next Due [...] Vital Signs Time Taken Vital Sign Reading 08/27/2018 9:00 AM SECOND BAKER Blood Pressure 117/86 08/27/2018 9:00 AM SECOND BAKER Pulse 75 08/27/2018 9:00 AM SECOND BAKER Temperature 36.7 C (98 F) 08/27/2018 9:00 AM SECOND BAKER Respiratory Rate 18 01/31/2018 7:10 AM CDT Oxygen Saturation 100% - Inhaled Oxygen - Concentration 08/27/2018 9:00 AM SECOND BAKER Weight 117.9 kg (260 lb) 08/27/2018 9:00 AM SECOND BAKER Height 172.7 cm (5' 8") 08/27/2018 9:00 AM SECOND BAKER Body Mass Index 39.53 Plan of Treatment Care Team Description Date Type Specialty Edilson Roberson MD [id number] Office [facility] JESSICA Jiang [address] WAITLIST PATIENT: 10/15/2018 Office Visit Family Practice Edilson Roberson MD [id number] Office [facility] JESSICA Jiang [address] rescheduled D/T clinic closed 10-08-18 10/21/2018 Office Visit Dermatology Goals Goal Patient Associated Recent Progress Patient-Stat Author Goal Type Problems ed? Feel more energetic Lifestyle No Eugenia Madera, Campus Administrator Reduce pain Lifestyle Yes Diane Madera Procedures Comments Procedure Name Priority Date/Time Associated Diagnosis URINE DRUG SCREEN Routine 09/27/2018 Pain management 10:14 AM CDT URINE DRUG SCREEN Routine 06/04/2018 Pain management 1:09 PM SECOND BAKER URINE DRUG SCREEN Routine 04/30/2018 Pain management [...] 12/08/2017 Pain management 9:11 AM CDT after 10/09/2017 Results * URINE DRUG SCREEN (09/27/2018 10:14 AM CDT) Only the most recent of 5 results within the time period is included. Amphetamine Negative NEG BT MAIN-STATION Comment: 1 Calibrated Standard: D-Methamphetamine Positive if urine level >cd=2903 ng/mL Test performed on [id number] using EMIT Immunoassay Barbiturate Negative NEG BT MAIN-STATION Comment: 1 Calibrated Standard: Secobarbital Positive if urine level is >pn=832 ng/mL Test performed on [id number] using EMIT Immunoassay Benzodiazepine Negative NEG BT MAIN-STATION Comment: 1 Calibrated Standard: Lormethazepam Positive if urine level is >ab=676 ng/mL Test performed on [id number] using EMIT Immunoassay Cannabinoid Negative NEG BT MAIN-STATION Comment: 1 Calibrated Standard: 11 nor-delta(9)-THC carboxylic a Positive if urine level >or=50 Test performed on [id number] using EMIT Immunoassay Cocaine Negative NEG BT MAIN-STATION Comment: 1 Calibrated Standard: Benzoylecgonine Positive if urine level >cu=119 Test performed on [id number] using EMIT Immunoassay Opiate, Ur Negative NEG BT MAIN-STATION Comment: 1 Calibrated Standard: Morphine Positive if urine level >jt=388 Test performed on [id number] using EMIT Immunoassay PCP Negative NEG BT MAIN-STATION Comment: 1 Calibrated Standard: Phencyclidine Positive if urine level >or=25 Test performed on [id number] using EMIT Immunoassay Urine Toxicology Screen results are to be used only for Medical purposes. Specimen Urine Performing Organization Address City/State/Zipcode Phone Number [employer]YS BT MAIN-STATION 1 * HIV-1/HIV-2 ROUTINE SCREENING (03/30/2018 3:00 PM CDT) Only the most recent of 2 results within the time period is included. HIV-1/HIV-2 Negative NEG BT MAIN-STATION 3 Performing Organization Address City/State/Zipcode Phone Number MISYS BT MAIN-STATION 3 * GASTRIN, SERUM (03/30/2018 3:00 PM CDT) Pathologist [facility] Gastrin, Serum 25 LABORATORY Reference range: 0 to 115 CORPOR[employer] OF Unit: pg/mL RAMO (note) Siemens Immulite 2000 Immunochemiluminometric assay (ICMA) Specimen Blood Performing Organization Address [facility] Phone Number [employer] OF [address] [place] [address] RAMO 145 * HEMOGLOBIN A1C (03/30/2018 3:00 PM CDT) [facility] Hemoglobin A1c 5.4 4.3 - 6.1 % DIAGNOSTIC IMMUNOLOGY Est Average 108.3 mg/dL BT DIAGNOSTIC Gluc IMMUNOLOGY Specimen Blood Performing Organization Address [facility] Phone Number [employer]MEENAK[employer]I DIAGNOSTIC IMMUNOLOGY * B NATRIURETIC PEPT (03/30/2018 3:00 PM CDT) [facility] B Natriuretic 25 <101 pg/mL MAIN-STATION Pept 1 Specimen Blood Performing Organization Address [facility] Phone Number [employer]ME[employer]I MAIN-STATION 1 * ENDOMYSIAL AB IGA (03/30/2018 3:00 PM CDT) [facility] Endomysial Ab Negative LABORATORY IgA Reference range: Negative [facility] RAMO Specimen Blood Performing Organization Address [facility] Phone Number [employer] [facility] [employer] OF [address] [place] [address] RAMO 145 * TSH (03/30/2018 3:00 PM CDT) [facility] TSH 0.94 0.57 - 3.74 uIU/mL BT MAIN-STATION 1 Specimen Blood Performing Organization Address [facility] Phone Number [employer] MAIN-STATION 1 * UA CHEMISTRIES (03/30/2018 3:00 PM CDT) Only the most recent of 2 results within the time period is included. Pathologist [facility] Color Yellow BT MAIN-STATION 4 Clarity Clear BT MAIN-STATION 4 Spec [place] 1.010 1.001 - 1.035 BT MAIN-STATION 4 [...] MAIN-STATION 4 Specimen Urine Performing Organization Address [facility] Phone Number MISYS BT MAIN-STATION 4 * ELECTROLYTES (03/30/2018 3:00 PM CDT) Sodium 138 136 - 145 mmol/L BT MAIN-STATION 1 Potassium 3.8 3.5 - 5.1 mmol/L BT MAIN-STATION 1 Chloride 100 98 - 107 mmol/L BT MAIN-STATION 1 CO2 29 21 - 31 mmol/L BT MAIN-STATION 1 Anion Gap 9 BT MAIN-STATION 1 Specimen Blood Performing Organization Address [facility] Phone Number MISYS BT MAIN-STATION 1 * [...] MAIN-STATION 1 Specimen Blood Performing Organization Address [facility] Phone Number MISYS BT MAIN-STATION 1 * LIPID PROFILE (03/30/2018 3:00 PM CDT) Cholesterol 125 mg/dL BT MAIN-STATION Comment: 1 REFERENCE RANGE: Desirable: <200 mg/dL Borderline: 200-240 mg/dL High Risk: >240 mg/dL Triglyceride 62 <150 mg/dL BT MAIN-STATION Comment: 1 REFERENCE RANGE: Normal: <150 mg/dL Borderline High: 150-199 mg/dL High: 200-499 mg/dL Very High: >td=748 mg/dL HDL 40 mg/dL BT MAIN-STATION Comment: 1 Increased CHD risk: <40 mg/dL Decreased CHD risk: >60 mg/dL LDL 73 mg/dL BT MAIN-STATION Comment: 1 REFERENCE RANGE: Optimal: <100 mg/dL Near Optimal: 100-129 mg/dL Borderline High: 130-159 mg/dL High: 160-189 mg/dL Very High: >do=797 mg/dL Specimen Blood Performing Organization Address [facility] Phone Number [facility] BT MAIN-STATION 1 * LIPASE (03/30/2018 3:00 PM CDT) Only the most recent of 2 results within the time period is included. Lipase 16 11 - 82 U/L BT MAIN-STATION 1 Specimen Blood Performing Organization Address [facility] Phone Number [facility] BT MAIN-STATION 1 * HEPATITIS PANEL (03/30/2018 3:00 PM CDT) HCV IgG Negative NEG BT MAIN-STATION 3 HBsAg Negative NEG BT MAIN-STATION 3 HAV, IgM Negative NEG BT MAIN-STATION 3 HBcAb, IgM Negative NEG BT MAIN-STATION 3 Specimen Blood Performing Organization Address [facility] Phone Number [facility] BT MAIN-STATION 3 * GLUCOSE, FASTING (03/30/2018 3:00 PM CDT) Glucose, 90 74 - 106 mg/dL BT MAIN-STATION Fasting 1 Specimen Blood Performing Organization Address [facility] Phone Number [facility] BT MAIN-STATION 1 * CBC (03/30/2018 3:00 PM [...] MAIN-STATION 2 Specimen Blood Performing Organization Address City/State/Zipcode [...] Other (Specify in Comments) Performing Organization Address [place]/[facility] Phone Number [facility] BT MAIN-STATION 1 * AMYLASE (03/30/2018 3:00 PM CDT) Amylase 38 29 - 103 U/L BT MAIN-STATION 1 Specimen Blood Performing Organization Address [facility] Phone Number MISYS BT MAIN-STATION 1 * [...] mmol/L BT MAIN-STATION 1 Performing Organization Address [facility] Phone Number MISYS BT MAIN-STATION 1 * [...] MD, 01/31/2018 5:17 AM Performing Organization Address [facility] Phone Number SMS * BMP POC (01/30/2018 [...] BT MAIN-STATION Afr-Am 1 Performing Organization Address [facility] Phone Number MISYS BT MAIN-STATION 1 * [...] Gran 2 Specimen Blood Performing Organization Address City/[facility] Phone Number [employer]YS BT MAIN-STATION 2 * 12 LEAD EKG (01/30/2018 3:56 PM CDT) 12 LEAD EKG FOR SMS P [facility] Test Date:2018-01-30 Pat Name: REINIER HEMPHILL Department: Room: Gender: M Court Recording Monitor: [id number] :01-27 Requested By: Order Number: Daniele vang MD: Carmen Joseph Measurements Intervals [place] Rate: 60 P:-11 VT: 165 QRS: -21 QRSD: 94 T:43 QT: 368 QTc:370 Interpretive Statements SINUS RHYTHM BORDERLINE LEFT AXIS DEVIATION LOW QRS VOLTAGE IN PRECORDIAL LEADS PATTERN CONSISTENT WITH PULMONARY DISEASE INCOMPLETE RIGHT BUNDLE BRANCH BLOCK Electronically Signed On 01-30-18 16:17:20 CDT by Carmen Joseph Performing Organization Address City/[facility] Phone Number [facility] after 10/09/2017 Insurance Type Payer Benefit Subscriber ID Effective Phone Address Plan / Dates Group [employer] H[employer] xxxxxxxxx 2017-P [phone] [address] [id number] [place] [address]
--- OUTSIDE RECORDS SUMMARY | 2018-12-20 16:19 | XMS REPORT | Clinical Summary ---
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 Disp. Refills Start End Date Status Date zolpidem (AMBIEN) 10 mg Take 1 tablet by mouth at 30 tablet 3 01/13/20 Active TabIndications: Insomnia, bedtime. 12 unspecified Tadalafil (CIALIS) 5 mg Take 1 tablet by mouth as 30 tablet 9 08/03/19 Active tabletIndications: Second needed for Erectile 16 degree hemorrhoids Dysfunction. Omeprazole 40 mg Take 1 capsule by mouth 90 capsule 3 08/03/19 Active capsuleIndications: daily. 16 Gastroesophageal reflux disease with esophagitis ergocalciferol (VITAMIN Take 1 capsule by mouth 12 capsule 3 08/03/19 Active D2) 50,000 unit weekly. 16 capsuleIndications: Vitamin D deficiency lidocaine (LIDODERM) 5 % Apply 1 Patch to skin as 30 Patch 2 12/07/19 Active patchIndications: Chronic directed daily Leave 16 left-sided low back pain patch(es) on for up to 12 with right-sided sciatica hours, then 12 hours off.. SUMAtriptan (IMITREX) 100 Take 1 tablet by mouth at 9 tablet 3 12/07/19 Active mg tabletIndications: onset of headache. Repeat 16 Migraine without aura and after 2 hours if needed. with status migrainosus, Maximum 200mg/24 hours.. not intractable albuterol (PROVENTIL) 2.5 Inhale 3 mL by mouth 75 mL 0 12/28/19 Active mg /3 mL (0.083 %) every 6 hours as needed 16 nebulizer for Wheezing. solutionIndications: COPD exacerbation Nebulizer & Compressor by [facility].(Non-Drug; Combo 1 Device 0 12/28/19 Active For Neb DeviIndications: Route) route Use as 16 COPD exacerbation directed. Nebulizer Accessories by [facility].(Non-Drug; Combo 1 Each 0 12/28/19 Active MiscIndications: COPD Route) route Nebulizer 16 exacerbation mask. albuterol (PROVENTIL) 2.5 Inhale 3 mL by mouth 75 mL 0 12/28/19 Active mg /3 mL (0.083 %) every 6 hours as needed 16 nebulizer for Wheezing. solutionIndications: COPD exacerbation Nebulizer & Compressor 1 Device by 1 Device 0 02/25/20 Active For Neb DeviIndications: [facility].(Non-Drug; Combo 16 Chronic obstructive Route) route 4 times pulmonary disease with daily COPD NEEDING acute exacerbation NEBULIZER FOR HOME TREATMENTS OF ALBUTEROL SOLUTION WITH TUBING AND MASK. cetirizine (ZYRTEC) 10 mg Take 1 tablet by mouth 90 tablet 2 04/14/20 Active tabletIndications: Other daily. 16 seasonal allergic rhinitis budesonide-formoterol Inhale 2 Puffs by mouth 2 16 g 9 04/14/20 Active (SYMBICORT HFA) 160-4.5 times daily. 16 mcg/actuation inhalerIndications: Dyspnea or other respiratory complaints Nebulizer & Compressor 1 Device by 1 Device 0 05/02/20 Active For Neb DeviIndications: [facility].(Non-Drug; Combo 16 Chronic obstructive Route) route 4 times pulmonary disease with daily. acute exacerbation naloxegol (MOVANTIK) 12.5 Take 12.5 mg by mouth 30 tablet 3 07/01/19 Active mg TabIndications: daily. 17 Drug-induced constipation fluconazole (DIFLUCAN) Take 1 tablet by mouth 30 tablet 1 12/20/19 Active 200 mg tabletIndications: daily. 17 Tinea hydrocortisone Insert 1 Suppository 28 2 12/20/19 Active (ANUSOL-HC) 25 mg rectal rectally 2 times daily. Suppository 17 suppositoryIndications: Fourth degree hemorrhoids nystatin (NYSTOP) 100,000 Apply to affected area 4 15 g 3 12/20/19 Active unit/gram topical times daily. 17 powderIndications: Tinea hydrocortisone-pramoxine Apply 1 Applicator to 20 g 3 12/20/19 Active (EPIFOAM) 1-1 % topical affected area 4 times 17 foamIndications: Fourth daily. degree hemorrhoids ibuprofen (MOTRIN) 800 mg Take 1 tablet by mouth 90 tablet 3 01/24/20 Active tabletIndications: every 8 hours as needed 17 Arthralgia, unspecified for Pain. joint zolpidem (AMBIEN) 10 mg Take 1 tablet by mouth 30 tablet 3 01/24/20 Active TabIndications: Second nightly at bedtime as 17 degree hemorrhoids needed for Insomnia. ketoconazole (NIZORAL) 2 Apply to affected area 60 g 2 01/24/20 Active % topical daily. 17 creamIndications: Tinea ergocalciferol (VITAMIN Take 1 capsule by mouth 12 capsule 2 02/17/20 Active D2) 50,000 unit weekly. 17 capsuleIndications: Hypovitaminosis D amLODIPine (NORVASC) 5 mg Take 1 tablet by mouth 90 tablet 2 02/17/20 Active tabletIndications: daily. 17 Essential hypertension benzonatate (TESSALON) TAKE 2 CAPSULES BY MOUTH 90 capsule 0 08/17/19 Active 100 mg THREE TIMES DAILY 18 capsuleIndications: Cough NEEDED FOR COUGH atorvastatin (LIPITOR) 40 Take 1 tablet by mouth at 90 tablet 2 10/14/19 Active mg tabletIndications: bedtime nightly. 18 Mixed hyperlipidemia cetirizine (ZYRTEC) 10 mg Take 1 tablet by mouth 30 tablet 3 10/14/19 Active tabletIndications: PND daily. 18 (post-nasal drip) fluticasone (FLONASE) 50 Use 2 Sprays in each 16 g 5 10/14/19 Active mcg/actuation nasal nostril daily. 18 sprayIndications: Other seasonal allergic rhinitis Omeprazole 40 mg Take 1 capsule by mouth 90 capsule 2 12/09/19 Active capsuleIndications: H. daily. 18 pylori infection, Gastroesophageal reflux disease with esophagitis albuterol (PROVENTIL) 2.5 INHALE 3 ML(ONE VAIL) VIA 300 mL 2 01/13/20 Active mg /3 mL (0.083 %) NEBULIZER EVERY 4 HOURS 18 nebulizer NEEDED FOR WHEEZING OR solutionIndications: SHORTNESS OF BREATH. Chronic obstructive pulmonary disease with acute exacerbation hydrOXYzine (ATARAX) 10 Take 1 tablet by mouth 90 tablet 2 01/13/20 Active mg tabletIndications: every 8 hours as needed 18 Anxiety for Itching. traMADol (ULTRAM) 50 mg TAKE 1 TABLET BY MOUTH 120 tablet 0 02/23/20 Active tabletIndications: EVERY 6 HOURS NEEDED. 18 Chronic left-sided low back pain with sciatica, sciatica laterality unspecified, Pain management carisoprodol 350 mg TAKE 1 TABLET BY MOUTH 90 tablet 0 02/23/20 Active tabletIndications: Spasm THREE TIMES DAILY 18 of muscle NEEDED. HYDROcodone-acetaminophen Take 1 tablet by mouth 120 tablet 0 02/23/20 Active (NORCO) 10-325 mg every 6 hours as needed 18 tabletIndications: for Pain. 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 nystatin (MYCOSTATIN) APPLY TOPICALLY TO 60 g 9 02/23/20 Active topical creamIndications: AFFECTED AREA TWICE 18 Tinea DAILY. clarithromycin (BIAXIN) Take 1 tablet by mouth 2 28 tablet 0 02/23/20 03/08/20 Active 500 mg tabletIndications: times daily for 14 days. 18 18 Infection fluticasone (FLONASE) 50 Use 2 Sprays in each 16 g 5 04/14/20 05/07/20 Discontin mcg/actuation nasal nostril daily. 16 17 ued sprayIndications: Other seasonal allergic rhinitis albuterol (PROVENTIL) 2.5 Inhale 3 mL by mouth 300 mL 3 06/19/20 11/29/19 Discontin mg /3 mL (0.083 %) every 4 hours as needed 16 18 ued nebulizer for Wheezing or Shortness solutionIndications: of Breath. Chronic obstructive pulmonary disease with acute exacerbation nystatin (MYCOSTATIN) Apply to affected area 2 60 g 2 11/19/19 08/03/19 Discontin topical creamIndications: times daily. 17 18 ued Tinea benzonatate (TESSALON Take 2 capsules by mouth 90 capsule 0 11/19/19 08/16/19 Discontin PERLES) 100 mg 3 times daily as needed 17 18 ued capsuleIndications: Cough for Cough. traMADol (ULTRAM) 50 mg TAKE ONE TABLET BY MOUTH 120 tablet 1 01/24/20 06/30/19 Discontin tabletIndications: EVERY 6 HOURS NEEDED 17 18 ued Chronic left-sided low FOR PAIN. back pain with sciatica, sciatica laterality unspecified, Pain management Omeprazole 40 mg Take 1 capsule by mouth 90 capsule 2 01/24/20 12/09/19 Discontin capsuleIndications: H. daily. 17 18 ued pylori infection, Gastroesophageal reflux disease with esophagitis diazePAM (VALIUM) 10 mg TAKE ONE TABLET BY MOUTH 60 tablet 0 02/17/20 04/10/20 Discontin tabletIndications: EVERY 12 HOURS NEEDED 17 17 ued Anxiety state, FOR ANXIETY. unspecified carisoprodol 350 mg Take 1 tablet by mouth 3 90 tablet 1 02/17/20 04/10/20 Discontin tabletIndications: Spasm times daily as needed for 17 17 ued of muscle Other (prn back spasm). HYDROcodone-acetaminophen Take 1 tablet by mouth 120 tablet 0 02/17/20 04/10/20 Discontin (NORCO) 10-325 mg every 6 hours as needed 17 17 ued tabletIndications: for Pain. 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 azithromycin (ZITHROMAX) Take 1 tablet by mouth 10 tablet 0 04/10/20 04/20/20 500 mg tabletIndications: daily for 10 days. 17 17 Lung infection diazePAM (VALIUM) 10 mg TAKE ONE TABLET BY MOUTH 60 tablet 0 04/10/20 06/01/20 Discontin tabletIndications: EVERY 12 HOURS NEEDED 17 17 ued Anxiety FOR ANXIETY. carisoprodol 350 mg Take 1 tablet by mouth 3 90 tablet 1 04/10/20 06/01/20 Discontin tabletIndications: Spasm times daily as needed for 17 17 ued of muscle Other (prn back spasm). HYDROcodone-acetaminophen Take 1 tablet by mouth 120 tablet 0 04/10/20 10/14/19 Discontin (NORCO) 10-325 mg every 6 hours as needed 17 18 ued tabletIndications: for Pain. 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 cetirizine (ZYRTEC) 10 mg Take 1 tablet by mouth 30 tablet 3 05/07/20 10/14/19 Discontin tabletIndications: PND daily. 17 18 ued (post-nasal drip) fluticasone (FLONASE) 50 Use 2 Sprays in each 16 g 5 05/07/20 10/14/19 Discontin mcg/actuation nasal nostril daily. 17 18 ued sprayIndications: Other seasonal allergic rhinitis diazePAM (VALIUM) 10 mg TAKE 1 TABLET BY MOUTH 60 tablet 0 06/02/20 06/26/20 Discontin tabletIndications: EVERY 12 HOURS NEEDED 17 17 ued Anxiety FOR ANXIETY carisoprodol 350 mg TAKE 1 TABLET BY MOUTH 90 tablet 0 06/02/20 06/26/20 Discontin tabletIndications: Spasm THREE TIMES DAILY 17 17 ued of muscle NEEDED atorvastatin (LIPITOR) 40 Take 1 tablet by mouth at 90 tablet 2 06/08/20 10/14/19 Discontin mg tabletIndications: bedtime nightly. 17 18 ued Mixed hyperlipidemia carisoprodol 350 mg TAKE 1 TABLET BY MOUTH 90 tablet 0 06/30/19 08/18/19 Discontin tabletIndications: Spasm THREE TIMES DAILY 18 18 ued of muscle NEEDED diazePAM (VALIUM) 10 mg TAKE 1 TABLET BY MOUTH 60 tablet 0 06/30/19 08/10/19 Discontin tabletIndications: EVERY 12 HOURS NEEDED 18 18 ued Anxiety FOR ANXIETY traMADol (ULTRAM) 50 mg TAKE 1 TABLET BY MOUTH 120 tablet 0 06/30/19 08/10/19 Discontin tabletIndications: EVERY 6 HOURS NEEDED 18 18 ued Chronic left-sided low FOR PAIN back pain with sciatica, sciatica laterality unspecified, Pain management nystatin (MYCOSTATIN) APPLY TOPICALLY TO 60 g 9 08/04/19 10/14/19 Discontin topical creamIndications: AFFECTED AREA TWICE DAILY 18 18 ued Tinea diazePAM (VALIUM) 10 mg TAKE 1 TABLET BY MOUTH 60 tablet 0 08/11/19 09/05/19 Discontin tabletIndications: EVERY 12 HOURS NEEDED 18 18 ued Anxiety FOR ANXIETY traMADol (ULTRAM) 50 mg TAKE 1 TABLET BY MOUTH 120 tablet 0 08/11/19 09/05/19 Discontin tabletIndications: EVERY 6 HOURS NEEDED 18 18 ued Chronic left-sided low FOR PAIN back pain with sciatica, sciatica laterality unspecified, Pain management carisoprodol 350 mg TAKE 1 TABLET BY MOUTH 90 tablet 0 08/18/19 09/05/19 Discontin tabletIndications: Spasm THREE TIMES DAILY 18 18 ued of muscle NEEDED. traMADol (ULTRAM) 50 mg TAKE 1 TABLET BY MOUTH 120 tablet 0 09/05/19 09/24/19 Discontin tabletIndications: EVERY 6 HOURS NEEDED 18 18 ued Chronic left-sided low FOR PAIN back pain with sciatica, sciatica laterality unspecified, Pain management diazePAM (VALIUM) 10 mg TAKE 1 TABLET BY MOUTH 60 tablet 0 09/05/19 09/24/19 Discontin tabletIndications: EVERY 12 HOURS NEEDED 18 18 ued Anxiety FOR ANXIETY carisoprodol 350 mg TAKE 1 TABLET BY MOUTH 90 tablet 0 09/05/19 09/24/19 Discontin tabletIndications: Spasm THREE TIMES DAILY 18 18 ued of muscle NEEDED. traMADol (ULTRAM) 50 mg TAKE 1 TABLET BY MOUTH 120 tablet 0 09/25/19 10/14/19 Discontin tabletIndications: EVERY 6 HOURS NEEDED 18 18 ued Chronic left-sided low FOR PAIN back pain with sciatica, sciatica laterality unspecified, Pain management diazePAM (VALIUM) 10 mg TAKE 1 TABLET BY MOUTH 60 tablet 0 09/25/19 10/14/19 Discontin tabletIndications: EVERY 12 HOURS NEEDED 18 18 ued Anxiety FOR ANXIETY carisoprodol 350 mg TAKE 1 TABLET BY MOUTH 90 tablet 0 09/25/19 10/14/19 Discontin tabletIndications: Spasm THREE TIMES DAILY 18 18 ued of muscle NEEDED HYDROcodone-acetaminophen Take 1 tablet by mouth 120 tablet 0 10/14/19 12/09/19 Discontin (NORCO) 10-325 mg every 6 hours as needed 18 18 ued tabletIndications: for Pain. 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 diazePAM (VALIUM) 10 mg TAKE 1 TABLET BY MOUTH 60 tablet 0 10/14/19 12/02/19 Discontin tabletIndications: EVERY 12 HOURS NEEDED 18 18 ued Anxiety FOR ANXIETY. carisoprodol 350 mg TAKE 1 TABLET BY MOUTH 90 tablet 0 10/14/19 12/02/19 Discontin tabletIndications: Spasm THREE TIMES DAILY 18 18 ued of muscle NEEDED. traMADol (ULTRAM) 50 mg TAKE 1 TABLET BY MOUTH 120 tablet 0 10/14/19 12/09/19 Discontin tabletIndications: EVERY 6 HOURS NEEDED 18 18 ued Chronic left-sided low FOR PAIN. back pain with sciatica, sciatica laterality unspecified, Pain management nystatin (MYCOSTATIN) APPLY TOPICALLY TO 60 g 9 10/14/19 12/09/19 Discontin topical creamIndications: AFFECTED AREA TWICE 18 18 ued Tinea DAILY. albuterol (PROVENTIL) 2.5 INHALE 3 ML(ONE VAIL) VIA 300 mL 0 12/01/19 01/13/20 Discontin mg /3 mL (0.083 %) NEBULIZER EVERY 4 HOURS 18 18 ued nebulizer NEEDED FOR WHEEZING OR solutionIndications: SHORTNESS OF BREATH Chronic obstructive pulmonary disease with acute exacerbation diazePAM (VALIUM) 10 mg TAKE 1 TABLET BY MOUTH 60 tablet 0 12/03/19 12/09/19 Discontin tabletIndications: EVERY 12 HOURS NEEDED 18 18 ued Anxiety FOR ANXIETY carisoprodol 350 mg TAKE 1 TABLET BY MOUTH 90 tablet 0 12/03/19 12/09/19 Discontin tabletIndications: Spasm THREE TIMES DAILY 18 18 ued of muscle NEEDED carisoprodol 350 mg TAKE 1 TABLET BY MOUTH 90 tablet 0 12/09/19 01/13/20 Discontin tabletIndications: Spasm THREE TIMES DAILY 18 18 ued of muscle NEEDED. HYDROcodone-acetaminophen Take 1 tablet by mouth 120 tablet 0 12/09/19 01/13/20 Discontin (NORCO) 10-325 mg every 6 hours as needed 18 18 ued tabletIndications: for Pain. 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 traMADol (ULTRAM) 50 mg TAKE 1 TABLET BY MOUTH 120 tablet 0 12/09/19 01/13/20 Discontin tabletIndications: EVERY 6 HOURS NEEDED 18 18 ued Chronic left-sided low FOR PAIN. back pain with sciatica, sciatica laterality unspecified, Pain management nystatin (MYCOSTATIN) APPLY TOPICALLY TO 60 g 9 12/09/19 02/23/20 Discontin topical creamIndications: AFFECTED AREA TWICE 18 18 ued Tinea DAILY. mupirocin (BACTROBAN) 2 % Apply to affected area 3 22 g 0 12/09/19 12/16/19 ointmentIndications: Skin times daily for 7 days. 18 18 infection carisoprodol 350 mg TAKE 1 TABLET BY MOUTH 90 tablet 0 01/13/20 02/16/20 Discontin tabletIndications: Spasm THREE TIMES DAILY 18 18 ued of muscle NEEDED. HYDROcodone-acetaminophen Take 1 tablet by mouth 120 tablet 0 01/13/20 02/23/20 Discontin (NORCO) 10-325 mg every 6 hours as needed 18 18 ued tabletIndications: for Pain. 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 traMADol (ULTRAM) 50 mg TAKE 1 TABLET BY MOUTH 120 tablet 0 01/13/20 02/16/20 Discontin tabletIndications: EVERY 6 HOURS NEEDED 18 18 ued Chronic left-sided low FOR PAIN. back pain with sciatica, sciatica laterality unspecified, Pain management amoxicillin (AMOXIL) 500 Take 1 capsule by mouth 3 42 capsule 0 01/13/20 01/27/20 mg capsuleIndications: times daily for 14 days. 18 18 Gastritis and gastroduodenitis traMADol (ULTRAM) 50 mg TAKE 1 TABLET BY MOUTH 120 tablet 0 02/17/20 02/23/20 Discontin tabletIndications: EVERY 6 HOURS NEEDED 18 18 ued Chronic left-sided low back pain with sciatica, sciatica laterality unspecified, Pain management carisoprodol 350 mg TAKE 1 TABLET BY MOUTH 90 tablet 0 02/17/20 02/23/20 Discontin tabletIndications: Spasm THREE TIMES DAILY 18 18 ued of muscle NEEDED Hospital, Clinic, or Ordered Dose Route Frequency Start End Date Status Other Facility Date Administered Medication cefTRIAXone (ROCEPHIN) 1 g IM ONCE 04/10/20 04/10/20 Ended injection 1 gIndications: 17 17 Lung infection lidocaine 1 % (XYLOCAINE) 2 mL IJ ONCE 04/10/20 04/10/20 Ended injection 2 17 17 mLIndications: Lung infection triamcinolone acetonide 80 mg IM ONCE 04/10/20 04/10/20 Ended (KENALOG-40) injection 80 17 17 mgIndications: Bilateral low back pain with sciatica, sciatica laterality unspecified, unspecified chronicity ketorolac (TORADOL) 60 60 mg IM ONCE 04/10/20 04/10/20 Ended mg/2 mL injection 60 17 17 mgIndications: Bilateral low back pain with sciatica, sciatica laterality unspecified, unspecified chronicity ketorolac (TORADOL) 60 60 mg IM ONCE 05/07/20 05/07/20 Discontin mg/2 mL injection 60 17 17 ued mgIndications: 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 triamcinolone acetonide 40 mg IM ONCE 05/07/20 05/07/20 Ended (KENALOG-40) injection 40 17 17 mgIndications: 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 ketorolac (TORADOL) 30 mg IM ONCE 05/07/20 05/07/20 Ended injection 30 17 17 mgIndications: 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 ketorolac (TORADOL) 60 mg IM ONCE 10/14/19 10/14/19 Ended injection 60 18 18 mgIndications: 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 triamcinolone acetonide 80 mg IM ONCE 10/14/19 10/14/19 Ended (KENALOG-40) injection 80 18 18 mgIndications: 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 ketorolac (TORADOL) 60 mg IM ONCE 12/09/19 12/09/19 Ended injection 60 18 18 mgIndications: 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 triamcinolone acetonide 40 mg IM ONCE 12/09/19 12/09/19 Ended (KENALOG-40) injection 40 18 18 mgIndications: 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 triamcinolone acetonide 40 mg IM ONCE 01/13/20 01/13/20 Ended (KENALOG-40) injection 40 18 18 mgIndications: Shortness of breath Active Problems Problem Noted Date Dysphagia 05/22/2017 Knee pain 10/19/2014 Overview: 10/19/14-received request for MRI of the L Knee related to DJD, knee pain 04/07, from Dr. Edilson Berry office on this patient with [employer] HMO; request authorization from [facility]; awaiting authorization. Diane Plasencia [id number] 10/27/14-spoke to Michael Pisano/[facility] Preauthorization Department [phone], gave the auth # [id number] effective 10/24/14-12/22/14 to a facility: [facility] [phone]/fax#: [phone]; spoke to Dc/[facility] and scheduled patient 11/01/2014@17:45 PM; message left x2, at patients voicemail advising of the scheduled appointment. Diane Plasencia [id number] 11/08/14-received a fax from Jayne Kaminski/[facility] [phone]/tel [phone] informing that the patient has cancelled the exam with their location and had exam done somewhere else; called patient x2, left messages on his voice mail, advising to call back for further information; authorization from [employer] was for [facility]; unknown where the patient went. Diane Plasencia [id number] 11/10/14-message left advising to call back; name of the facility for MRI is needed for authorization from [employer]. Diane Plasencia [id number] 11/13/14-per patient he could not remember the name of the facility; he will ask his later. Diane Plasencia [id number] 11/27/14-per patient he couldn't remember the name of the facility; per patients , she is not at home, she will call back to give us the name of the facility. Diane Plasencia [id number] 12/19/14 - Case closed. Patient had MRI done @ own choice location. Documentation noted in record. Ivanna Quintana RN # [id number] Skin tags 12/06/2007 Somatization disorder 07/31/2007 BORDERLINE [...] sleep apnea) Headache(784.0) Obesity Abdominal complaints Encounters Date Type Specialty Care Team Description 02/22/2018 Office Visit Family Edilson Lara MD Infection (Primary Dx); Chronic left-sided low back pain with sciatica, sciatica laterality unspecified; Pain management; Spasm of muscle; 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; Tinea 02/22/2018 Orders Only Family Edilson Lara MD Pain management 02/16/2018 Refill Family Edilson Lara MD 02/15/2018 Refill [facility] Edilson Roberson MD Chronic left- sided low back pain with sciatica, sciatica laterality unspecified; Pain management; Spasm of muscle 01/31/2018 Emergency Emergency Medicine Navin Pisano DO Gastroesophageal reflux disease with esophagitis (Primary Dx); Abdominal complaints 01/12/2018 Office Visit [facility] Edilson Lara MD Excessive and redundant skin and subcutaneous tissue (Primary Dx); Dietary counseling for Above / Below Normal BMI; Exercise counseling for Above Normal BMI Only!; Spasm of muscle; 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; Chronic left-sided low back pain with sciatica, sciatica laterality unspecified; Pain management; Shortness of breath; Chronic obstructive pulmonary disease with acute exacerbation 12/08/2017 Office Visit [facility] Edilson Lara MD Skin infection (Primary Dx); Spasm of muscle; 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 pylori infection; Gastroesophageal reflux disease with esophagitis 12/03/2017 Refill Family Edilson Lara MD 12/01/2017 Refill [facility] Edilson Lara MD Anxiety; Spasm of muscle 11/28/2017 Refill Edilson Li MD Chronic obstructive pulmonary disease with acute exacerbation 11/26/2017 Refill Edilson Li MD Spasm of muscle; Anxiety; Chronic obstructive pulmonary disease with acute exacerbation 10/13/2017 Office Visit [facility] Edilson Lara MD Bilateral low back pain with sciatica, sciatica laterality unspecified, unspecified chronicity (Primary Dx); 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; Anxiety; Spasm of muscle; Chronic left-sided low back pain with sciatica, sciatica laterality unspecified; Pain management; Tinea; Mixed hyperlipidemia; PND (post-nasal drip); Other seasonal allergic rhinitis 09/28/[address] [facility] Edilson Roberson MD 09/23/2017 Refill [facility] Edilson Roberson MD Chronic left- sided low back pain with sciatica, sciatica laterality unspecified; Pain management; Anxiety; Spasm of muscle 09/07/2017 Refill [facility] Edilson Roberson MD 09/04/[address] [facility] Edilson Roberson MD Spasm of muscle 09/04/[address] [facility] Edilson Roberson MD Chronic left- sided low back pain with sciatica, sciatica laterality unspecified; Pain management; Anxiety 08/19/[address] [facility] Edilson Roberson MD 08/18/[address] [facility] Edilson Roberson MD Spasm of muscle 08/16/2017 Refill [facility] Edilson Roberson MD Cough 08/11/2017 Refill [facility] Edilson Roberson MD 08/10/[address] [facility] Edilson Roberson MD Anxiety; Chronic left-sided low back pain with sciatica, sciatica laterality unspecified; Pain management 08/03/[address] [facility] Edilson Roberson MD Tinea 07/21/2017 Telephone Social Work Evelyn Lomax [employer] Pre-clinic Chart Review; Residential Insurance Inspector (DME) 07/01/2017 Refill [facility] Edilson Roberson MD 06/30/2017 Refill [facility] Edilson Roberson MD 06/30/[address] [facility] Edilson Roberson MD Anxiety; Spasm of muscle; Chronic left-sided low back pain with sciatica, sciatica laterality unspecified; Pain management 06/26/[address] [facility] Edilson Roberson MD Spasm of muscle; Anxiety 06/26/2017 Telephone Social Work [place]elyn [place]om[place] [facility]; Residential Insurance Inspector (Wheel Chair) 06/09/2017 Telephone [facility] Dyan Le RN Results 06/08/2017 Orders Only Family Practice Edilson Roberson MD Mixed hyperlipidemia (Primary Dx) 06/08/2017 Telephone Family Practice Dyan Le RN Results (Patient requesting for provider to review his outside lab work and give him a call) 06/02/2017 Refill Family Practice Edilson Roberson MD 06/01/2017 Refill [facility] Edilson Roberson MD Anxiety; Spasm of muscle 05/27/2017 Orders Only [facility] Edilson Roberson MD Spasm of muscle 05/22/2017 Emergency Emergency Medicine Dysphagia, unspecified - type (Primary Dx) 05/23/2017 05/07/2017 Office Visit Family Practice Cynthia Jacques, Chronic left-sided low DO back pain with right-sided sciatica (Primary Dx); Need for influenza vaccination; Severe obesity (BMI >=40); Borderline diabetes; Throat irritation; PND (post-nasal drip); Other seasonal allergic rhinitis 05/07/[address] 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; Bilateral low back pain with sciatica, sciatica laterality unspecified, unspecified chronicity after 03/02/2017 Immunizations Name Dates Previously Given Next Due Influenza Vaccine 05/07/2017 (Deferred: Patient Refused), 04/10/2009, 06/01/2008, 08/17/2007 Influenza Vaccine, 05/07/2017 (Deferred: Patient Refused) Seasonal, Injectable Td Tetanus, diphtheria 06/25/2007 06/25/2017 Toxoids Vaccine Family History Medical History Relation Name Comments Diabetes Father Heart Father Hypertension Father Stroke Father Arthritis Mother Diabetes Mother Heart Mother Hypertension Mother Relation Name Status Comments Father Alive Mother Alive Social History Tobacco Use Types Packs/Day Years Used Date Never Smoker Smokeless Tobacco: Never Used Tobacco Cessation: Counseling Given: No Alcohol Use Drinks/Week oz/Week Comments No 0 Standard 0.0 quit drinks or equivalent Sex Assigned at Date Recorded Not on file Last Filed Vital Signs Vital Sign Reading Time Taken Blood Pressure 113/73 02/22/2018 9:25 AM CDT Pulse 83 02/22/2018 9:25 AM CDT Temperature 36.6 C (97.8 F) 02/22/2018 9:25 AM CDT Respiratory Rate 20 02/22/2018 9:25 AM CDT Oxygen Saturation 100% 01/31/2018 7:10 AM CDT Inhaled Oxygen - - Concentration Weight 96.6 kg (213 lb) 02/22/2018 9:25 AM CDT Height 172.7 cm (5' 8") 02/22/2018 9:25 AM CDT Body Mass Index 32.39 02/22/2018 9:25 AM CDT Plan of Treatment Date Type Specialty Care Team Description 03/09/2018 Office Visit Family Practice Edilson Roberson MD [address] [place] [address] Goals Patient Goal Type Goal Recent Progress Patient-Stat Author ed? 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 VBG POC Routine 01/31/2018 Results for this 5:18 AM CDT procedure are in the results section. CT ABDOMEN AND PELVIS Routine 01/31/2018 Abdominal complaints Results for this CONTRAST 5:03 AM CDT procedure are in the results section. UA CHEMISTRIES STAT 01/31/2018 Results for this 3:50 AM CDT procedure are in the results section. BMP POC Routine 01/30/2018 Results for this 4:09 PM CDT procedure are in the results section. TROPONIN I POC Routine 01/30/2018 Results for this 4:07 PM CDT procedure are in the results section. HIV-1/HIV-2 ROUTINE STAT 01/30/2018 Results for this SCREENING 4:01 PM CDT procedure are in the results section. LIPASE STAT 01/30/2018 Results for this 4:01 PM CDT procedure are in the results section. LIVER PROFILE STAT 01/30/2018 Results for this 4:01 PM CDT procedure are in the results section. CBC/DIFF STAT 01/30/2018 Results for this 4:01 PM CDT procedure are in the results section. 12 LEAD EKG Routine 01/30/2018 Results for this 3:56 PM CDT procedure are in the results section. URINE DRUG SCREEN Routine 12/08/2017 Pain management Results for this 9:11 AM CDT procedure are in the results section. BMP POC Routine 05/22/2017 Results for this 9:48 PM [employer] procedure are in the results section. UA CHEMISTRIES STAT 05/22/2017 Results for this 9:40 PM [employer] procedure are in the results section. LIPASE STAT 05/22/2017 Results for this 9:40 PM [employer] procedure are in the results section. LIVER PROFILE STAT 05/22/2017 Results for this 9:40 PM [employer] procedure are in the results section. HIV-1/HIV-2 ROUTINE STAT 05/22/2017 Results for this SCREENING 9:40 PM [employer] procedure are in the results section. CBC/DIFF STAT 05/22/2017 Results for this 9:40 PM [employer] procedure are in the results section. THROAT CULTURE Routine 05/07/2017 Results for this 1:38 PM [employer] procedure are in the results section. HEMOGLOBIN A1C Routine 05/07/2017 Borderline diabetes Results for this 1:05 PM [employer] Severe obesity (BMI >=40) procedure are in the results section. RAPID INFLUENZA SCREEN STAT 05/07/2017 Throat irritation Results for this 12:22 PM [employer] procedure are in the results section. GROUP A STREP SCREEN STAT 05/07/2017 Throat irritation Results for this 12:22 PM [employer] procedure are in the results section. URINE DRUG SCREEN Routine 04/10/2017 Pain management Results for this 1:24 PM CDT procedure are in the results section. after 03/02/2017 Results * URINE DRUG SCREEN (02/22/2018 9:43 AM) Only the most recent of 3 results within the time period is included. Amphetamine Negative NEG BT MAIN-STATION 1 Comment: Calibrated Standard: D-Methamphetamine Positive if urine level >xh=9515 ng/mL Test performed on [id number] using EMIT Immunoassay Barbiturate Negative NEG BT MAIN-STATION 1 Comment: Calibrated Standard: Secobarbital Positive if urine level is >le=393 ng/mL Test performed on [id number] using EMIT Immunoassay Benzodiazepine Negative NEG BT MAIN-STATION 1 Comment: Calibrated Standard: Lormethazepam Positive if urine level is >wd=849 ng/mL Test performed on [id number] using EMIT Immunoassay Cannabinoid Negative NEG BT MAIN-STATION 1 Comment: Calibrated Standard: 11 nor-delta(9)-THC carboxylic a Positive if urine level >or=50 Test performed on [id number] using EMIT Immunoassay Cocaine Negative NEG BT MAIN-STATION 1 Comment: Calibrated Standard: Benzoylecgonine Positive if urine level >qv=589 Test performed on [id number] using EMIT Immunoassay Opiate, Ur Negative NEG BT MAIN-STATION 1 Comment: Calibrated Standard: Morphine Positive if urine level >kp=020 Test performed on [id number] using EMIT Immunoassay PCP Negative NEG BT MAIN-STATION 1 Comment: Calibrated Standard: Phencyclidine Positive if urine level >or=25 Test performed on [id number] using EMIT Immunoassay Urine Toxicology Screen results are to be used only for Medical purposes. Specimen Urine Performing Organization Address [facility] Phone Number MISYS BT MAIN-STATION 1 * VBG POC (01/31/2018 5:18 AM) pH, David POC 7.36Comment: Physician 7.33 - 7.43 BT MAIN-STATION 1 Notified pCO2, David POC 46.0 38.0 - 50.0 mm Hg BT MAIN-STATION 1 pO2, David POC 29 (L) 50 - 75 mm Hg BT MAIN-STATION 1 Base Excess, David POC 0 mmol/L BT MAIN-STATION 1 HCO3, David POC 25.8 22.0 - 26.0 mmol/L BT MAIN-STATION 1 % Sat, David POC 53 (L) 60 - 85 % BT MAIN-STATION 1 Lactic Acid, David POC 0.63 0.4 - 2.0 mmol/L BT MAIN-STATION 1 Sample Type David BT MAIN-STATION 1 TCO2, DAVID POC 27 21 - 32 mmol/L BT MAIN-STATION 1 Performing Organization Address [facility] Phone Number MISYS BT MAIN-STATION 1 * CT ABDOMEN AND PELVIS CONTRAST (01/31/2018 5:03 AM) Impressions Performed At IMPRESSION: SMS No acute [...] MD, 01/31/2018 5:17 AM Performing Organization Address [facility] Phone Number SMS * UA CHEMISTRIES (01/31/2018 3:50 AM) Only the most recent of 2 results within the time period is included. Color Colorless BT MAIN-STATION 3 Clarity Clear BT MAIN-STATION 3 Spec [place] 1.005 1.001 - 1.035 BT MAIN-STATION 3 pH 6.0 5 - 8 BT MAIN-STATION 3 Protein Negative NEG BT MAIN-STATION 3 Glucose Negative NEG BT MAIN-STATION 3 Ketone Negative NEG BT MAIN-STATION 3 Bilirubin Negative NEG BT MAIN-STATION 3 Nitrate Negative NEG BT MAIN-STATION 3 Urobilinogen <1.0 0.2 - 1.0 EU/dL BT MAIN-STATION 3 Leukocyte Negative NEG BT MAIN-STATION 3 Blood Negative NEG BT MAIN-STATION 3 Specimen Urine Performing Organization Address [facility] Phone Number MISYS BT MAIN-STATION 3 * BMP POC (01/30/2018 4:09 PM) Only the most recent of 2 results within the time period is included. CO2 POC 26Comment: Physician Notified 21 - 32 mmol/L BT MAIN-STATION 1 Chloride POC 104 98 - 107 mmol/L BT MAIN-STATION 1 Potassium POC 3.6 3.50 - 5.10 mmol/L BT MAIN-STATION 1 Sodium POC 143 136 - 145 mmol/L BT MAIN-STATION 1 Glucose POC 93 74 - 106 mg/dL BT MAIN-STATION 1 Urea Nitrogen POC 18 7 - 18 mg/dL BT MAIN-STATION 1 Creatinine POC 1.2 0.6 - 1.3 mg/dL BT MAIN-STATION 1 Calcium Ionized POC 1.22 1.15 - 1.29 mmol/L BT MAIN-STATION 1 Hemoglobin POC 13.9 (L) 14.0 - 18.0 g/dL BT MAIN-STATION 1 Hematocrit POC 41.0 40.0 - 54.0 % BT MAIN-STATION 1 GFR, Estimated >60 mL/min/1.73 m2 BT MAIN-STATION 1 GFR, Estim, Afr-Am >60 mL/min/1.73 m2 BT MAIN-STATION 1 Performing Organization Address City/State/[place] Phone Number MISYS BT MAIN-STATION 1 * TROPONIN I POC (01/30/2018 4:07 PM) Troponin POC 0.00Comment: Physician 0.00 - 0.08 ng/mL BT MAIN-STATION 1 Notified Performing Organization Address City/State/[place] Phone Number MISYS BT MAIN-STATION 1 * HIV-1/HIV-2 ROUTINE SCREENING (01/30/2018 4:01 PM) Only the most recent of 2 results within the time period is included. HIV-1/HIV-2 Negative NEG BT MAIN-STATION 4 Performing Organization Address City/[facility]/[place] Phone Number MISYS BT MAIN-STATION 4 * LIVER PROFILE (01/30/2018 4:01 PM) Only the most recent of 2 results within the time period is included. T Protein 6.0 6.0 - 8.3 g/dL BT MAIN-STATION 1 Albumin 3.7 (L) 4.2 - 5.5 g/dL BT MAIN-STATION 1 T Bilirubin 0.8 0.2 - 1.2 mg/dL BT MAIN-STATION 1 Alk Phos 67 34 - 104 U/L BT MAIN-STATION 1 AST 15 13 - 39 U/L BT MAIN-STATION 1 ALT 13 7 - 52 U/L BT MAIN-STATION 1 D Bilirubin 0.2 0.0 - 0.2 mg/dL BT MAIN-STATION 1 Specimen Blood Performing Organization Address City/[facility]/[place] Phone Number MISYS BT MAIN-STATION 1 * LIPASE (01/30/2018 4:01 PM) Only the most recent of 2 results within the time period is included. Lipase 14 11 - 82 U/L BT MAIN-STATION 1 Specimen Blood Performing Organization Address City/[facility]/[place] Phone Number MISYS BT MAIN-STATION 1 * CBC/DIFF (01/30/2018 4:01 PM) Only the most recent of 2 results within the time period is included. 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 Phone Number SMS * THROAT CULTURE (05/07/2017 1:38 PM) Spec Description Throat swab [facility] Order Comments None [facility] Culture Normal izabela, no Beta BT MICROBIOLOGY Streptococcus isolated Report Status Final 05/10/2017 BT MICROBIOLOGY Specimen Throat Performing Organization Address [facility] Phone Number [facility] BT [facility] * HEMOGLOBIN A1C (05/07/2017 1:05 PM) Hemoglobin A1c 5.1 4.3 - 6.1 % [facility] Est Average Gluc 99.7 mg/dL [facility] Specimen Blood Performing Organization Address [facility] Phone Number [facility] * RAPID INFLUENZA SCREEN (05/07/2017 12:22 PM) Spec Description Nasopharyngeal swab [facility] Order Comments None BT MAIN-STATION 2 Direct Exam Negative for Influenza A virus [facility] Negative for Influenza B virus Report Status Final 05/07/2017 [facility] Specimen Nasopharyngeal - Nasopharyngeal Swab Performing Organization Address [facility] Phone Number [employer] [facility] BT MAIN-STATION 2 * GROUP A STREP SCREEN (05/07/2017 12:22 PM) Group A Strep Negative NEG [facility] Specimen Other (Specify in Comments) - THROAT Performing Organization Address City/[facility] Phone Number [facility] after 03/02/2017
--- OUTSIDE RECORDS SUMMARY | 2018-12-20 16:19 | XMS REPORT | Clinical Summary ---
Author Author [facility] Organization [facility] Address Unknown Phone Unavailable Care Team Providers Care Consumer Education Specialist Name Role Phone Edilson Roberson MD PCP [...] solutionIndications: COPD exacerbation Nebulizer & Compressor by [facility].(Non-Drug; Combo 1 Device 0 12/28/19 Active For Neb DeviIndications: Route) route Use as 16 COPD exacerbation directed. Nebulizer Accessories by [facility].(Non-Drug; Combo 1 Each 0 12/28/19 Active MiscIndications: COPD Route) route Nebulizer 16 exacerbation mask. albuterol (PROVENTIL) 2.5 Inhale 3 mL by mouth 75 mL 0 12/28/19 Active mg /3 mL (0.083 %) every 6 hours as needed 16 nebulizer for Wheezing. solutionIndications: COPD exacerbation Nebulizer & Compressor 1 Device by 1 Device 0 02/25/20 Active For Neb DeviIndications: [facility].(Non-Drug; Combo 16 Chronic obstructive Route) route 4 [...] Device 0 05/02/20 Active For Neb DeviIndications: [facility].(Non-Drug; Combo 16 Chronic obstructive Route) route 4 [...] with [employer] HMO; request authorization from [facility]; awaiting authorization. Diane Plasencia [id number] 10/27/14-spoke to Michael [place]/[facility] Preauthorization Department [phone], gave the auth # [id number] effective 10/24/14-12/22/14 to a facility: [facility] [phone]/fax#: [phone]; spoke to Dc/[facility] and scheduled patient 11/01/2014@17:45 PM; message left x2, at patients voicemail advising of the scheduled appointment. Diane Plasencia [id number] 11/08/14-received a fax from Jayne Kaminski/[facility] [phone]/tel [phone] informing that the patient has cancelled the exam with their location and had exam done somewhere else; called patient x2, left messages on his voice mail, advising to call back for further information; authorization from [employer] was for [facility]; unknown where the patient went. Diane Plasencia [id number] 11/10/14-message left advising to call back; name of the facility for MRI is needed for authorization from [facility]. Diane Plasencia [id number] 11/13/14-per patient he could not remember the name of the facility; he will ask his later. Diane Plasencia [id number] 11/27/14-per patient he couldn't remember the name of the facility; per patients , she is not at home, she will call back to give us the name of the facility. Diane Plasencia [id number] 12/19/14 - Case closed. Patient had MRI done @ own choice location. Documentation noted in record. Ivanna Quintana RN # [id number] Skin tags 12/06/2007 Somatization disorder 07/31/2007 BORDERLINE [...] Refill Family Edilson Lara MD 02/15/2018 Refill [facility] Edilson Roberson MD Chronic left- sided low back pain with sciatica, sciatica laterality unspecified; Pain management; Spasm of muscle 01/31/2018 Emergency Emergency Medicine Navin [place] DO Gastroesophageal reflux disease with esophagitis (Primary Dx); Abdominal complaints 01/12/2018 Office Visit [facility] Edilson Lara MD Excessive and redundant [...] disease with acute exacerbation 12/08/2017 Office Visit [facility] Edilson Lara MD Skin infection (Primary Dx); Spasm of muscle; 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; Anxiety; Spasm of muscle; Chronic left-sided low back pain with sciatica, sciatica laterality unspecified; Pain management; Tinea; Mixed hyperlipidemia; PND (post-nasal drip); Other seasonal allergic rhinitis 09/28/2017 Refill [facility] Edilson Roberson MD 09/23/2017 Refill [facility] Edilson Roberson MD Chronic left- sided low back pain with sciatica, sciatica laterality unspecified; Pain management; Anxiety; Spasm of muscle 09/07/2017 Refill [facility] Edilson Roberson MD 09/04/2017 Refill [facility] Edilson Roberson MD Spasm of muscle 09/04/2017 Refill [facility] Edilson Roberson MD Chronic left- sided low back pain with sciatica, sciatica laterality unspecified; Pain management; Anxiety 08/19/2017 Refill [facility] Edilson Roberson MD 08/18/2017 Refill [facility] Edilson Roberson MD Spasm of muscle 08/16/2017 Refill [facility] Edilson Roberson MD Cough 08/11/2017 Refill [facility] Edilson Roberson MD 08/10/2017 Refill [facility] Edilson Roberson MD Anxiety; Chronic left-sided low back pain with sciatica, sciatica laterality unspecified; Pain management 08/03/2017 Refill [facility] Edilson Roberson MD Tinea 07/21/2017 Telephone Social Work Evelyn Lomax SENIOR DATABASE ENGINEER Pre-clinic Chart Review; Process Control Supervisor (DME) 07/01/2017 Refill [facility] Edilson Roberson MD 06/30/2017 Refill [facility] Edilson Roberson MD 06/30/2017 Refill [facility] Edilson Roberson MD Anxiety; Spasm of muscle; Chronic left-sided low back pain with sciatica, sciatica laterality unspecified; Pain management 06/26/2017 Refill [facility] Edilson Roberson MD Spasm of muscle; Anxiety 06/26/2017 Telephone Social Work Evelyn Lomax [facility] Pre-clinic Chart Review; Process Control Supervisor (Wheel Chair) 06/09/2017 Telephone [facility] Dyan Le RN Results 06/08/2017 Orders Only Family Practice Edilson Roberson MD Mixed hyperlipidemia (Primary Dx) 06/08/2017 Telephone Family Practice Dyan Le RN Results (Patient requesting for provider to review his outside lab work and give him a call) 06/02/2017 Refill Family Practice Edilson Roberson MD 06/01/2017 Refill [facility] Edilson Roberson MD Anxiety; Spasm of muscle 05/27/2017 Orders Only [facility] Edilson Roberson MD Spasm of muscle 05/22/2017 Emergency Emergency Medicine Dysphagia, unspecified - type (Primary Dx) 05/23/2017 05/07/2017 Office Visit Family Practice Cynthia Jacques, Chronic left-sided low DO back pain with right-sided sciatica (Primary Dx); Need for influenza vaccination; Severe obesity (BMI >=40); Borderline diabetes; Throat irritation; PND (post-nasal drip); Other seasonal allergic rhinitis 05/07/2017 Telephone [facility] Edilson Roberson, Refill Request Physician 04/17/2017 Telephone [facility] Work Hattie Knight RN Durable Medical Equipment (Received from [facility]/Medical Records: Title 19 for completion.); Pre-clinic Chart Review 04/10/2017 Office Visit [facility] Edilson Roberson MD WARREN (obstructive sleep apnea) (Primary Dx); Overweight; Essential hypertension; Anxiety; Lung infection; Spasm of muscle; 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 [address] Goals Patient Goal Type Goal Recent Progress Patient-Stat Author ed? Lifestyle Feel more energetic No Eugenia Madera, Development Technologist Procedures Procedure Name Priority Date/Time Associated Diagnosis [...] Routine 05/22/2017 Results for this 9:48 PM MATERIAL HANDLING WAREHOUSE SUPERVISOR procedure are in the results section. UA CHEMISTRIES STAT 05/22/2017 Results for this 9:40 PM MATERIAL HANDLING WAREHOUSE SUPERVISOR procedure are in the results section. LIPASE STAT 05/22/2017 Results for this 9:40 PM MATERIAL HANDLING WAREHOUSE SUPERVISOR procedure are in the results section. LIVER PROFILE STAT 05/22/2017 Results for this 9:40 PM MATERIAL HANDLING WAREHOUSE SUPERVISOR procedure are in the results section. HIV-1/HIV-2 ROUTINE STAT 05/22/2017 Results for this SCREENING 9:40 PM MATERIAL HANDLING WAREHOUSE SUPERVISOR procedure are in the results section. CBC/DIFF STAT 05/22/2017 Results for this 9:40 PM MATERIAL HANDLING WAREHOUSE SUPERVISOR procedure are in the results section. THROAT CULTURE Routine 05/07/2017 Results for this 1:38 PM MATERIAL HANDLING WAREHOUSE SUPERVISOR procedure are in the results section. HEMOGLOBIN A1C Routine 05/07/2017 Borderline diabetes Results for this 1:05 PM MATERIAL HANDLING WAREHOUSE SUPERVISOR Severe obesity (BMI >=40) procedure are in the results section. RAPID INFLUENZA SCREEN STAT 05/07/2017 Throat irritation Results for this 12:22 PM MATERIAL HANDLING WAREHOUSE SUPERVISOR procedure are in the results section. GROUP A STREP SCREEN STAT 05/07/2017 Throat irritation Results for this 12:22 PM MATERIAL HANDLING WAREHOUSE SUPERVISOR procedure are in the results section. URINE DRUG SCREEN Routine 04/10/2017 Pain management Results for this 1:24 PM CDT procedure are in the results section. after 03/04/2017 Results * URINE DRUG SCREEN (02/22/2018 9:43 AM) Only the most recent of 3 results within the time period is included. Amphetamine Negative NEG BT MAIN-STATION 1 Comment: Calibrated Standard: D-Methamphetamine Positive if urine level >ja=2259 ng/mL Test performed on [id number] using EMIT Immunoassay Barbiturate Negative NEG BT MAIN-STATION 1 Comment: Calibrated Standard: Secobarbital Positive if urine level is >ra=161 ng/mL Test performed on [id number] using EMIT Immunoassay Benzodiazepine Negative NEG BT MAIN-STATION 1 Comment: Calibrated Standard: Lormethazepam Positive if urine level is >em=568 ng/mL Test performed on [id number] using EMIT Immunoassay Cannabinoid Negative NEG BT MAIN-STATION 1 Comment: Calibrated Standard: 11 nor-delta(9)-THC carboxylic a Positive if urine level >or=50 Test performed on [id number] using EMIT Immunoassay Cocaine Negative NEG BT MAIN-STATION 1 Comment: Calibrated Standard: Benzoylecgonine Positive if urine level >ss=827 Test performed on [id number] using EMIT Immunoassay Opiate, Ur Negative NEG BT MAIN-STATION 1 Comment: Calibrated Standard: Morphine Positive if urine level >on=947 Test performed on [id number] using EMIT Immunoassay PCP Negative NEG BT MAIN-STATION 1 Comment: Calibrated Standard: Phencyclidine Positive if urine level >or=25 Test performed on [id number] using EMIT Immunoassay Urine Toxicology Screen results are to be used only for Medical purposes. Specimen Urine Performing Organization Address [facility] Phone Number MISYS BT MAIN-STATION 1 * [...] mmol/L BT MAIN-STATION 1 Performing Organization Address [facility] Phone Number MISYS BT MAIN-STATION 1 * [...] MD, 01/31/2018 5:17 AM Performing Organization Address [facility] Phone Number SMS * UA CHEMISTRIES (01/31/2018 3:50 AM) Only the most recent of 2 results within the time period is included. Color Colorless BT MAIN-STATION 3 Clarity Clear BT MAIN-STATION 3 Spec [place] 1.005 1.001 - 1.035 BT MAIN-STATION 3 [...] MAIN-STATION 3 Specimen Urine Performing Organization Address [facility] Phone Number MISYS BT MAIN-STATION 3 * [...] m2 BT MAIN-STATION 1 Performing Organization Address [place]/State[facility] Phone Number MISYS BT MAIN-STATION 1 * TROPONIN I POC (01/30/2018 4:07 PM) Troponin POC 0.00Comment: Physician 0.00 - 0.08 ng/mL BT MAIN-STATION 1 Notified Performing Organization Address City/State/[facility] Phone Number MISYS BT MAIN-STATION 1 * HIV-1/HIV-2 ROUTINE SCREENING (01/30/2018 4:01 PM) Only the most recent of 2 results within the time period is included. HIV-1/HIV-2 Negative NEG BT MAIN-STATION 4 Performing Organization Address City/[facility] Phone Number MISYS BT MAIN-STATION 4 * [...] MAIN-STATION 1 Specimen Blood Performing Organization Address City/[facility] Phone Number MISYS BT MAIN-STATION 1 * LIPASE (01/30/2018 4:01 PM) Only the most recent of 2 results within the time period is included. Lipase 14 11 - 82 U/L BT MAIN-STATION 1 Specimen Blood Performing Organization Address City/[facility] Phone Number MISYS BT MAIN-STATION 1 * [...] 3:56 PM) 12 LEAD EKG FOR [facility] Test Date:2018-01-30 Pat Name: REINIER HEMPHILL Department: Room: Gender: M Turn Down Worker: [id number] :[id number]- Requested By: Order Number: Daniele vang MD: Carmen Joseph Measurements Intervals Cascade Rate: 60 P:-11 TX: 165 QRS: -21 QRSD: 94 T:43 QT: 368 QTc:370 Interpretive Statements SINUS RHYTHM BORDERLINE LEFT AXIS DEVIATION LOW QRS VOLTAGE IN PRECORDIAL LEADS PATTERN CONSISTENT WITH PULMONARY DISEASE INCOMPLETE RIGHT BUNDLE BRANCH BLOCK Electronically Signed On 01-30-18 16:17:20 CDT by Carmen Joseph Performing Organization Address City/[facility] Phone Number SMS * THROAT CULTURE (05/07/2017 1:38 PM) Spec Description Throat swab [facility] Order Comments None [facility] Culture Normal izabela, no Beta BT MICROBIOLOGY Streptococcus isolated Report Status Final 05/10/2017 BT MICROBIOLOGY Specimen Throat Performing Organization Address [facility] Phone Number [facility] BT MICRO[facility]OLOG[facility] * HEMOGLOBIN A1C (05/07/2017 1:05 PM) Hemoglobin A1c 5.1 4.3 - 6.1 % [facility] Est Average Gluc 99.7 mg/dL [facility] Specimen Blood Performing Organization Address [facility] Phone Number [facility] * RAPID INFLUENZA SCREEN (05/07/2017 12:22 PM) Spec Description Nasopharyngeal swab [facility] Order Comments None BT MAIN-STATION 2 Direct Exam Negative for Influenza A virus [facility] Negative for Influenza B virus Report Status Final 05/07/2017 [facility] Specimen Nasopharyngeal - Nasopharyngeal Swab Performing Organization Address [facility] Phone Number [facility] BT MAIN-STATION 2 * GROUP A STREP SCREEN (05/07/2017 12:22 PM) Group A Strep Negative NEG [facility] Specimen Other (Specify in Comments) - THROAT Performing Organization Address City/[facility] Phone Number [facility] after 03/04/2017
--- OUTSIDE RECORDS SUMMARY | 2018-12-20 16:20 | XMS REPORT | Clinical Summary ---
Author Author [facility] Organization [facility] Address Unknown Phone Unavailable Care Team Providers Care Cooper Helper Name Role Phone Edilson Roberson MD PCP [...] solutionIndications: COPD exacerbation Nebulizer & Comp[place] [facility]rug; Combo 1 Device 0 12/28/19 Active For Neb DeviIndications: Route) route Use as 16 COPD exacerbation directed. Nebulizer Accessories by [facility]Non-Drug; Combo 1 Each 0 12/28/19 Active MiscIndications: COPD Route) route Nebulizer 16 exacerbation mask. albuterol (PROVENTIL) 2.5 Inhale 3 mL by mouth 75 mL 0 12/28/19 Active mg /3 mL (0.083 %) every 6 hours as needed 16 nebulizer for Wheezing. solutionIndications: COPD exacerbation Nebulizer & Compressor 1 Device by 1 Device 0 02/25/20 Active For Neb DeviIndications: [facility]Drug; Combo 16 Chronic obstructive Route) route 4 [...] Device 0 05/02/20 Active For Neb DeviIndications: [facility]Non-Drug; Combo 16 Chronic obstructive Route) route 4 [...] hours as needed 18 Anxiety for Itching. metoclopramide (REGLAN) Take 1 tablet by mouth 3 90 tablet 0 03/30/20 Active 10 mg tabletIndications: times daily (before 18 GI problem, Belching, meals). Abdominal fullness albuterol (PROVENTIL) 2.5 Inhale 3 mL by mouth 3 mL 0 03/30/20 Active mg /3 mL (0.083 %) every 6 hours as needed 18 nebulizer for Wheezing. solutionIndications: Bronchospasm traMADol (ULTRAM) 50 mg TAKE 1 TABLET BY MOUTH 120 tablet 0 04/21/20 Active tabletIndications: EVERY 6 HOURS NEEDED. 18 Chronic left-sided low back pain with sciatica, sciatica laterality unspecified, Pain management HYDROcodone-acetaminophen Take 1 tablet by mouth 120 tablet 0 04/30/20 Active (NORCO) 10-325 mg every 6 hours as needed 18 tabletIndications: for Pain. 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 carisoprodol 350 mg TAKE 1 TABLET BY MOUTH 90 tablet 0 04/30/20 Active tabletIndications: Spasm THREE TIMES DAILY 18 of muscle NEEDED. nystatin (MYCOSTATIN) APPLY TOPICALLY TO 60 g 9 04/30/20 Active topical creamIndications: AFFECTED AREA TWICE 18 Tinea DAILY. albuterol (PROVENTIL) 2.5 Inhale 3 mL by [...] DAILY 18 18 ued of muscle NEEDED traMADol (ULTRAM) 50 mg TAKE 1 TABLET BY MOUTH 120 tablet 0 02/23/20 03/09/20 Discontin tabletIndications: EVERY 6 HOURS NEEDED. 18 18 ued Chronic left-sided low back pain with sciatica, sciatica laterality unspecified, Pain management carisoprodol 350 mg TAKE 1 TABLET BY MOUTH 90 tablet 0 02/23/20 03/09/20 Discontin tabletIndications: Spasm THREE TIMES DAILY 18 18 ued of muscle NEEDED. HYDROcodone-acetaminophen Take 1 tablet by mouth 120 tablet 0 02/23/20 03/09/20 Discontin (NORCO) 10-325 mg every 6 hours as needed 18 18 ued tabletIndications: for Pain. 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 nystatin (MYCOSTATIN) APPLY TOPICALLY TO 60 g 9 02/23/20 04/30/20 Discontin topical creamIndications: AFFECTED AREA TWICE 18 18 ued Tinea DAILY. clarithromycin (BIAXIN) Take 1 tablet by mouth 2 28 tablet 0 02/23/20 03/08/20 500 mg tabletIndications: times daily for 14 days. 18 18 Infection traMADol (ULTRAM) 50 mg TAKE 1 TABLET BY MOUTH 120 tablet 0 03/09/20 04/21/20 Discontin tabletIndications: EVERY 6 HOURS NEEDED. 18 18 ued Chronic left-sided low back pain with sciatica, sciatica laterality unspecified, Pain management carisoprodol 350 mg TAKE 1 TABLET BY MOUTH 90 tablet 0 03/09/20 04/09/20 Discontin tabletIndications: Spasm THREE TIMES DAILY 18 18 ued of muscle NEEDED. HYDROcodone-acetaminophen Take 1 tablet by mouth 120 tablet 0 03/09/20 04/30/20 Discontin (NORCO) 10-325 mg every 6 hours as needed 18 18 ued tabletIndications: for Pain. 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 carisoprodol 350 mg TAKE 1 TABLET BY MOUTH 90 tablet 0 04/12/20 04/30/20 Discontin tabletIndications: Spasm THREE TIMES DAILY 18 18 ued of muscle NEEDED. nystatin (MYCOSTATIN) APPLY TOPICALLY TO 60 g 9 04/30/20 04/30/20 Discontin topical creamIndications: AFFECTED AREA TWICE 18 18 ued Tinea DAILY. Hospital, Clinic, or Ordered Dose Route Frequency Start End Date Status Other Facility Date Administered Medication ketorolac (TORADOL) 60 mg IM ONCE 10/14/19 [...] 40 18 18 mgIndications: Shortness of breath ketorolac (TORADOL) 60 mg IM ONCE 03/09/20 03/09/20 Ended injection 60 18 18 mgIndications: Chronic left-sided low back pain with sciatica, sciatica laterality unspecified triamcinolone acetonide 40 mg IM ONCE 03/09/20 03/09/20 Ended (KENALOG-40) injection 40 18 18 mgIndications: Chronic left-sided low back pain with sciatica, sciatica laterality unspecified albuterol (PROVENTIL) 2.5 2.5 mg IN ONCE 03/30/20 03/30/20 Ended mg /3 mL (0.083 %) 18 18 nebulized solution 2.5 mgIndications: Bronchospasm Active Problems Problem Noted Date Dysphagia 05/22/2017 Knee pain 10/19/2014 Overview: 10/19/14-received request for MRI of the L Knee related to DJD, knee pain 04/07, from Dr. Edilson Berry office on this patient with [employer] HMO; request authorization from [facility]; awaiting authorization. Diane Plasencia [id number] 10/27/14-spoke to Michael Pisano/[facility] Preauthorization Department [phone], gave the auth # [id number] effective 10/24/14-12/22/14 to a facility: [facility] 182 750 8042/fax#: [phone]; spoke to Dc/[facility] and scheduled patient 11/01/2014@17:45 PM; message left x2, at patients voicemail advising of the scheduled appointment. Diane Plasencia [id number] 11/08/14-received a fax from Jayne Kaminski/[facility] [phone]/tel [phone] informing that the patient has cancelled the exam with their location and had exam done somewhere else; called patient x2, left messages on his voice mail, advising to call back for further information; authorization from [employer] was for [facility]; unknown where the patient went. Diane Plasencia [phone] 11/10/14-message left advising to call back; name of the facility for MRI is needed for authorization from [facility]. Diane Plasencia [id number] 11/13/14-per patient he could not remember the name of the facility; he will ask his later. Diane Plasencia [id number] 11/27/14-per patient he couldn't remember the name of the facility; per patients , she is not at home, she will call back to give us the name of the facility. Diane Plasencia [id number] 12/19/14 - Case closed. Patient had MRI done @ own choice location. Documentation noted in record. Ivanna Quintana RN # [id number] Skin tags 12/06/2007 Somatization disorder 07/31/2007 BORDERLINE [...] Encounters Date Type Specialty Care Team Description 05/27/2018 Refill Family Practice Edilson Roberson MD Spasm of muscle 04/30/2018 Office Visit Family Practice Edilson Roberson MD Pain management (Primary Dx); 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; Tinea; Spasm of muscle 04/30/2018 Orders Only Family Practice Edilson Roberson MD Pain management 04/21/2018 Refill [facility] Darline Roman, Chronic left- sided low RN back pain with sciatica, sciatica laterality unspecified; Pain management 04/09/2018 Refill [facility] Darline Roman, Spasm of muscle RN 03/30/2018 Office Visit Family Practice Edilson Roberson MD Encounter for vaccination (Primary Dx); GI problem; Belching; Abdominal fullness; Gastroesophageal reflux disease with esophagitis; Aerophagia; Bronchospasm 03/22/2018 Telephone Family Practice Darline Roman, Results RN 03/09/2018 Office Visit Family Practice Edilson Roberson MD Chronic left-sided low back pain with sciatica, sciatica laterality unspecified; Pain management; Spasm of muscle; 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 02/22/2018 Office Visit Family Practice Edilson Roberson MD Infection (Primary Dx); Chronic left-sided low back pain with sciatica, sciatica laterality unspecified; Pain management; Spasm of muscle; 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; Tinea 02/22/2018 Orders Only [facility] Edilson Roberson MD Pain management 02/16/2018 Refill [facility] Edilson Roberson MD 02/15/2018 Refill [facility] Edilson Roberson MD Chronic left- sided low back pain with sciatica, sciatica laterality unspecified; Pain management; Spasm of muscle 01/31/2018 Emergency Emergency Medicine Navin Pisano MD Gastroesophageal reflux disease with esophagitis (Primary Dx); Abdominal complaints 01/12/2018 Office Visit [facility] Edilson Roberson MD Excessive and redundant skin and subcutaneous tissue (Primary Dx); Dietary counseling for Above / Below Normal BMI; Exercise counseling for Above Normal BMI Only!; Spasm of muscle; 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; Chronic left-sided low back pain with sciatica, sciatica laterality unspecified; Pain management; Shortness of breath; Chronic obstructive pulmonary disease with acute exacerbation 12/08/2017 Office Visit [facility] Edilson Lara MD Skin infection (Primary Dx); Spasm of muscle; 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 pylori infection; Gastroesophageal reflux disease with esophagitis 12/03/2017 Refill [facility] Edilson Roberson MD 12/01/2017 Refill [facility] Edilson Roberson MD Anxiety; Spasm of muscle 11/28/2017 Refill [facility] Edilson Roberson MD Chronic obstructive pulmonary disease with acute exacerbation 11/26/2017 Refill [facility] Edilson Roberson MD Spasm of muscle; Anxiety; Chronic obstructive pulmonary disease with acute exacerbation 10/13/2017 Office Visit [facility] Edilson Roberson MD Bilateral low back pain with sciatica, sciatica laterality unspecified, unspecified chronicity (Primary Dx); 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; Anxiety; Spasm of muscle; Chronic left-sided low back pain with sciatica, sciatica laterality unspecified; Pain management; Tinea; Mixed hyperlipidemia; PND (post-nasal drip); Other seasonal allergic rhinitis 09/28/2017 Refill [facility] Edilson Roberson MD 09/23/2017 Refill [facility] Edilson Roberson MD Chronic left- sided low back pain with sciatica, sciatica laterality unspecified; Pain management; Anxiety; Spasm of muscle 09/07/2017 Refill [facility] Edilson Roberson MD 09/04/2017 Refill [facility] Edilson Roberson MD Spasm of muscle 09/04/2017 Refill [facility] Edilson Roberson MD Chronic left- sided low back pain with sciatica, sciatica laterality unspecified; Pain management; Anxiety 08/19/2017 Refill [facility] Edilson Roberson MD 08/18/2017 Refill [facility] Edilson Roberson MD Spasm of muscle 08/16/2017 Refill [facility] Edilson Roberson MD Cough 08/11/2017 Refill [facility] Edilson Roberson MD 08/10/2017 Refill [facility] Edilson Roberson MD Anxiety; Chronic left-sided low back pain with sciatica, sciatica laterality unspecified; Pain management 08/03/2017 Refill [facility] Edilson Roberson MD Tinea 07/21/2017 Telephone Social Work Evelyn Lomax [facility] Pre-clinic Chart Review; Investigations Chief (DME) 07/01/2017 Refill [facility] Edilson Roberson MD 06/30/2017 Refill [facility] Edilson Roberson MD 06/30/2017 Refill [facility] Edilson Rboerson MD Anxiety; Spasm of muscle; Chronic left-sided low back pain with sciatica, sciatica laterality unspecified; Pain management 06/26/2017 Refill [facility] Edilson Roberson MD Spasm of muscle; Anxiety 06/26/2017 Telephone Social Work Evelyn Lomax [facility] Pre-clinic Chart Review; Investigations Chief (Wheel Chair) 06/09/2017 Telephone [facility] Dyan Le RN Results 06/08/2017 Orders Only [facility] Edilson Roberson MD Mixed hyperlipidemia (Primary Dx) 06/08/2017 Telephone [facility] Dyan Le RN Results (Patient requesting for provider to review his outside lab work and give him a call) 06/02/2017 Refill Family Practice Edilson Roberson MD 06/01/2017 Refill Family Practice Edilson Roberson MD Anxiety; Spasm of muscle 05/27/2017 Orders Only Family Practice Edilson Roberson MD Spasm of muscle after 05/27/2017 Immunizations Name Dates Previously Given Next Due Influenza Vaccine 05/07/2017 (Deferred: Patient Refused), 04/10/2009, 06/01/2008, 08/17/2007 Influenza Vaccine, 05/07/2017 (Deferred: Patient Refused) Seasonal, Injectable Influenza, 03/30/2018 (Deferred: Patient Refused) Vaccine<FLUCELVAX>(Multi- Dose) Td Tetanus, diphtheria 06/25/2007 06/25/2017 Toxoids Vaccine [...] Vital Sign Reading Time Taken Blood Pressure 120/78 04/30/2018 1:03 PM CDT Pulse 79 04/30/2018 1:03 PM CDT Temperature 36.6 C (97.8 F) 04/30/2018 1:03 PM CDT Respiratory Rate 19 04/30/2018 1:03 PM CDT Oxygen Saturation 100% 01/31/2018 7:10 AM CDT Inhaled Oxygen - - Concentration Weight 109.4 kg (241 lb 3.2 oz) 04/30/2018 1:03 PM CDT Height 169 cm (5' 6.53") 04/30/2018 1:03 PM CDT Body Mass Index 38.31 04/30/2018 1:03 PM CDT Plan of Treatment Date Type Specialty Care Team Description 06/04/2018 Office Visit Family Practice Edilson Roberson MD [place] [address] [facility] [address] [place], [place] [id number] 06/04/2018 Lab Appointment Lab UDS Goals Patient Goal Type Goal Recent Progress Patient-Stat Author ed? Lifestyle Feel more energetic No Eugenia [place], Splitting Machine Feeder Procedures Procedure Name Priority Date/Time Associated Diagnosis Comments URINE DRUG SCREEN Routine 04/30/2018 Pain management Results for this 2:08 PM CDT procedure are in the results section. GASTRIN, SERUM Routine 03/30/2018 Encounter for vaccination Results for this 3:00 PM CDT GI problem procedure are in the [facility] results section. Abdominal fullness Gastroesophageal reflux disease with esophagitis Aerophagia HIV-1/HIV-2 ROUTINE Routine 03/30/2018 Encounter for vaccination Results for this SCREENING 3:00 PM CDT GI problem procedure are in the [place] results section. Abdominal fullness Gastroesophageal reflux disease with esophagitis Aerophagia HEPATITIS PANEL Routine 03/30/2018 Encounter for vaccination Results for this 3:00 PM CDT GI problem procedure are in the [place] results section. Abdominal fullness Gastroesophageal reflux disease with esophagitis Aerophagia B NATRIURETIC PEPT Routine 03/30/2018 Encounter for vaccination Results for this 3:00 PM CDT GI problem procedure are in the [place] results section. Abdominal fullness Gastroesophageal reflux disease with esophagitis Aerophagia LIPASE Routine 03/30/2018 Encounter for vaccination Results for this 3:00 PM CDT GI problem procedure are in the [place] results section. Abdominal fullness Gastroesophageal reflux disease with esophagitis Aerophagia AMYLASE Routine 03/30/2018 Encounter for vaccination Results for this 3:00 PM CDT GI problem procedure are in the [place] results section. Abdominal fullness Gastroesophageal reflux disease with esophagitis Aerophagia ENDOMYSIAL AB IGA Routine 03/30/2018 Encounter for vaccination Results for this 3:00 PM CDT GI problem procedure are in the [place] results section. Abdominal fullness Gastroesophageal reflux disease with esophagitis Aerophagia TSH Routine 03/30/2018 Encounter for vaccination Results for this 3:00 PM CDT GI problem procedure are in the [place] results section. Abdominal fullness Gastroesophageal reflux disease with esophagitis Aerophagia HEMOGLOBIN A1C Routine 03/30/2018 Encounter for vaccination Results for this 3:00 PM CDT GI problem procedure are in the [place] results section. Abdominal fullness Gastroesophageal reflux disease with esophagitis Aerophagia GLUCOSE, FASTING Routine 03/30/2018 Encounter for vaccination Results for this 3:00 PM CDT GI problem procedure are in the [place] results section. Abdominal fullness Gastroesophageal reflux disease with esophagitis Aerophagia ELECTROLYTES Routine 03/30/2018 Encounter for vaccination Results for this 3:00 PM CDT GI problem procedure are in the [place] results section. Abdominal fullness Gastroesophageal reflux disease with esophagitis Aerophagia UREA NITROGEN/CREA Routine 03/30/2018 Encounter for vaccination Results for this 3:00 PM CDT GI problem procedure are in the [place] results section. Abdominal fullness Gastroesophageal reflux disease with esophagitis Aerophagia UA CHEMISTRIES Routine 03/30/2018 Encounter for vaccination Results for this 3:00 PM CDT GI problem procedure are in the [place] results section. Abdominal fullness Gastroesophageal reflux disease with esophagitis Aerophagia LIVER PROFILE Routine 03/30/2018 Encounter for vaccination Results for this 3:00 PM CDT GI problem procedure are in the [place] results section. Abdominal fullness Gastroesophageal reflux disease with esophagitis Aerophagia LIPID PROFILE Routine 03/30/2018 Encounter for vaccination Results for this 3:00 PM CDT GI problem procedure are in the [place] results section. Abdominal fullness Gastroesophageal reflux disease with esophagitis Aerophagia CBC Routine 03/30/2018 Encounter for vaccination Results for this 3:00 PM CDT GI problem procedure are in the [place] results section. Abdominal fullness Gastroesophageal reflux disease with esophagitis [...] procedure are in the results section. after 05/27/2017 Results * URINE DRUG SCREEN (04/30/2018 2:08 PM) Only the most recent of 3 results within the time period is included. Amphetamine Negative NEG BT MAIN-STATION 1 Comment: Calibrated Standard: D-Methamphetamine Positive if urine level >ge=3366 ng/mL Test performed on [id number] using EMIT Immunoassay Barbiturate Negative NEG BT MAIN-STATION 1 Comment: Calibrated Standard: Secobarbital Positive if urine level is >pv=949 ng/mL Test performed on [id number] using EMIT Immunoassay Benzodiazepine Negative NEG BT MAIN-STATION 1 Comment: Calibrated Standard: Lormethazepam Positive if urine level is >tn=255 ng/mL Test performed on [id number] using EMIT Immunoassay Cannabinoid Negative NEG BT MAIN-STATION 1 Comment: Calibrated Standard: 11 nor-delta(9)-THC carboxylic a Positive if urine level >or=50 Test performed on [id number] using EMIT Immunoassay Cocaine Negative NEG BT MAIN-STATION 1 Comment: Calibrated Standard: Benzoylecgonine Positive if urine level >oi=491 Test performed on [id number] using EMIT Immunoassay Opiate, Ur Negative NEG BT MAIN-STATION 1 Comment: Calibrated Standard: Morphine Positive if urine level >mu=180 Test performed on [id number] using EMIT Immunoassay PCP Negative NEG BT MAIN-STATION 1 Comment: Calibrated Standard: Phencyclidine Positive if urine level >or=25 Test performed on [id number] using EMIT Immunoassay Urine Toxicology Screen results are to be used only for Medical purposes. Specimen Urine Performing Organization Address [facility] Phone [facility] BT MAIN-STATION 1 * HIV-1/HIV-2 ROUTINE SCREENING (03/30/2018 3:00 PM) Only the most recent of 2 results within the time period is included. HIV-1/HIV-2 Negative NEG BT MAIN-STATION 3 Performing Organization Address City/[facility] Phone Number [facility] BT MAIN-STATION 3 * GASTRIN, SERUM (03/30/2018 3:00 PM) Gastrin, Serum 25 LABORATORY Reference range: 0 to 115 [employer] OF Unit: pg/mL RAMO (note) Siemens wikifolioulite 2000 Immunochemiluminometric assay (ICMA) Specimen Blood Performing Organization Address [facility] [place] Phone Number [employer] [place] [address] [place] [address] [facility] 145 * HEMOGLOBIN A1C (03/30/2018 3:00 PM) Hemoglobin A1c 5.4 4.3 - 6.1 % BT DIAGNOSTIC IMMUNOLOGY Est Average Gluc 108.3 mg/dL BT DIAGNOSTIC IMMUNOLOGY Specimen Blood Performing Organization Address [facility] [place] Phone Number [facility] * B NATRIURETIC PEPT (03/30/2018 3:00 PM) B Natriuretic Pept 25 <101 pg/mL BT MAIN-STATION 1 Specimen Blood Performing Organization Address [facility] [place] Phone Number [facility] 1 * ENDOMYSIAL AB IGA (03/30/2018 3:00 PM) Endomysial Ab IgA Negative LABORATORY Reference range: Negative [facility] Specimen Blood Performing Organization Address [facility] Phone Number [employer] [address] [place] [address] [facility] 145 * TSH (03/30/2018 3:00 PM) TSH 0.94 0.57 - 3.74 uIU/mL BT MAIN-STATION 1 Specimen Blood Performing Organization Address [facility] Phone Number PRICILLA BT MAIN-STATION 1 * UA CHEMISTRIES (03/30/2018 3:00 PM) Only the most recent of 2 results within the time period is included. Color Yellow BT MAIN-STATION 4 Clarity Clear BT MAIN-STATION 4 Spec [place] 1.010 1.001 - 1.035 BT MAIN-STATION 4 [...] MAIN-STATION 4 Specimen Urine Performing Organization Address [facility] [place] Phone Number PRICILLA BT MAIN-STATION 4 * ELECTROLYTES (03/30/2018 3:00 PM) Sodium 138 136 - 145 mmol/L BT MAIN-STATION 1 Potassium 3.8 3.5 - 5.1 mmol/L BT MAIN-STATION 1 Chloride 100 98 - 107 mmol/L BT MAIN-STATION 1 CO2 29 21 - 31 mmol/L BT MAIN-STATION 1 Anion Gap 9 BT MAIN-STATION 1 Specimen Blood Performing Organization Address [facility] [place] Phone Number MISYS MAIN-STATION 1 * LIVER PROFILE (03/30/2018 3:00 PM) Only the most recent of 2 [...] MAIN-STATION 1 Specimen Blood Performing Organization Address [facility] [place] Phone Number [facility]YS MAIN-STATION 1 * LIPID PROFILE (03/30/2018 3:00 PM) Cholesterol 125 mg/dL MAIN-STATION 1 Comment: REFERENCE RANGE: Desirable: <200 mg/dL Borderline: 200-240 mg/dL High Risk: >240 mg/dL Triglyceride 62 <150 mg/dL BT MAIN-STATION 1 Comment: REFERENCE RANGE: Normal: <150 mg/dL Borderline High: 150-199 mg/dL High: 200-499 mg/dL Very High: >oa=960 mg/dL HDL 40 mg/dL BT MAIN-STATION 1 Comment: Increased CHD risk: <40 mg/dL Decreased CHD risk: >60 mg/dL LDL 73 mg/dL BT MAIN-STATION 1 Comment: REFERENCE RANGE: Optimal: <100 mg/dL Near Optimal: 100-129 mg/dL Borderline High: 130-159 mg/dL High: 160-189 mg/dL Very High: >km=470 mg/dL Specimen Blood Performing Organization Address [facility] [place] Phone Number MISYS MAIN-STATION 1 * LIPASE (03/30/2018 3:00 PM) Only the most recent of 2 results within the time period is included. Lipase 16 11 - 82 U/L BT MAIN-STATION 1 Specimen Blood Performing Organization Address [facility] [place] Phone Number MISYS BT MAIN-STATION 1 * HEPATITIS PANEL (03/30/2018 3:00 PM) HCV IgG Negative NEG BT MAIN-STATION 3 HBsAg Negative NEG BT MAIN-STATION 3 HAV, IgM Negative NEG BT MAIN-STATION 3 HBcAb, IgM Negative NEG BT MAIN-STATION 3 Specimen Blood Performing Organization Address [facility] [place] Phone Number MISYS BT MAIN-STATION 3 * GLUCOSE, FASTING (03/30/2018 3:00 PM) Glucose, Fasting 90 74 - 106 mg/dL BT MAIN-STATION 1 Specimen Blood Performing Organization Address [facility] [place] [facility] [place] MISYS BT MAIN-ST[place] 1 * CBC (03/30/2018 3:00 PM) WBC 7.7 4.5 - 12.0 K/uL BT [...] K/uL BT MAIN-STATION 2 Mean Platelet Volume 11.2 9.4 - 12.4 fL BT MAIN-STATION 2 Percent NRBC 0.0 BT MAIN-STATION 2 Absolute NRBC 0.00 BT MAIN-STATION 2 Specimen Blood Performing Organization Address [facility] [place] MISYS BT MAIN-STATION 2 * UREA NITROGEN/CREA (03/30/2018 3:00 PM) Urea Nitrogen 14 7 - 25 mg/dL BT MAIN-STATION 1 Creatinine 0.80 0.7 - 1.3 mg/dL BT MAIN-STATION 1 GFR, Estimated >60 mL/min/1.73 m2 BT MAIN-STATION 1 GFR, Estim, Afr-Am >60 mL/min/1.73 m2 BT MAIN-STATION 1 Specimen Other (Specify in Comments) Performing Organization Address [facility] [place] Number MISYS BT MAIN-STATION 1 * AMYLASE (03/30/2018 3:00 PM) Amylase 38 29 - 103 U/L BT MAIN-STATION 1 Specimen Blood Performing Organization Address [facility] [place] [facility] [place] Number MISYS BT MAIN-STATION 1 * [...] mmol/L BT MAIN-STATION 1 Performing Organization Address [facility] [place] [facility] [place] MISYS BT MAIN-STATION 1 * [...] MD, 01/31/2018 5:17 AM Performing Organization Address [facility] Phone Number SMS * BMP POC (01/30/2018 4:09 PM) CO2 POC 26Comment: Physician Notified 21 - [...] m2 BT MAIN-STATION 1 Performing Organization Address [facility] [place] [facility] [place] MISYS BT MAIN-STATION 1 * TROPONIN I POC (01/30/2018 4:07 PM) Troponin POC 0.00Comment: Physician 0.00 - 0.08 ng/mL BT MAIN-STATION 1 Notified Performing Organization Address [facility] Phone Number MISYS BT MAIN-STATION 1 * CBC/DIFF (01/30/2018 4:01 PM) WBC 8.4 4.5 - 12.0 K/uL BT [...] 3:56 PM) 12 LEAD EKG FOR [facility] Test Date:2018-01-30 Pat Name: REINIER HEMPHILL Department: Room: Gender: M [employer]: [id number] :[birth year] Requested By: Order Number: [id number] MD: Carmen Joseph Measurements Intervals [place] Rate: 60 P:-11 AL: 165 QRS: -21 QRSD: 94 T:43 QT: 368 QTc:370 Interpretive Statements SINUS RHYTHM BORDERLINE LEFT AXIS DEVIATION LOW QRS VOLTAGE IN PRECORDIAL LEADS PATTERN CONSISTENT WITH PULMONARY DISEASE INCOMPLETE RIGHT BUNDLE BRANCH BLOCK Electronically Signed On 01-30-18 16:17:20 CDT by Carmen Joseph Performing Organization Address City/State/Zipcode Phone Number [facility] after 05/27/2017
--- OUTSIDE RECORDS SUMMARY | 2018-12-20 16:21 | XMS REPORT | Clinical Summary ---
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 nystatin (MYCOSTATIN) APPLY TOPICALLY TO 60 g 9 02/23/20 Active topical creamIndications: AFFECTED AREA TWICE 18 Tinea DAILY. traMADol (ULTRAM) 50 mg TAKE 1 TABLET BY MOUTH 120 tablet 0 03/09/20 Active tabletIndications: EVERY 6 HOURS NEEDED. 18 Chronic left-sided low back pain with sciatica, sciatica laterality unspecified, Pain management HYDROcodone-acetaminophen Take 1 tablet by mouth 120 tablet 0 03/09/20 Active (NORCO) 10-325 mg every 6 hours as needed 18 tabletIndications: for Pain. 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 metoclopramide (REGLAN) Take 1 tablet by mouth 3 90 tablet 0 03/30/20 Active 10 mg tabletIndications: times daily (before 18 GI problem, Belching, meals). Abdominal fullness albuterol (PROVENTIL) 2.5 Inhale 3 mL by mouth 3 mL 0 03/30/20 Active mg /3 mL (0.083 %) every 6 hours as needed 18 nebulizer for Wheezing. solutionIndications: Bronchospasm carisoprodol 350 mg TAKE 1 TABLET BY MOUTH 90 tablet 0 04/12/20 Active tabletIndications: Spasm THREE TIMES DAILY 18 of muscle NEEDED. fluticasone (FLONASE) 50 Use 2 Sprays in [...] pylori infection, Gastroesophageal reflux disease with esophagitis azithromycin (ZITHROMAX) Take 1 tablet by mouth [...] left-sided low back pain with right-sided sciatica clarithromycin (BIAXIN) Take 1 tablet by mouth 2 28 tablet 0 02/23/20 03/08/20 500 mg tabletIndications: times daily for 14 days. 18 18 Infection carisoprodol 350 mg TAKE 1 TABLET BY MOUTH 90 tablet 0 03/09/20 04/09/20 Discontin tabletIndications: Spasm THREE TIMES DAILY 18 18 ued of muscle NEEDED. carisoprodol 350 mg TAKE 1 TABLET BY MOUTH 90 tablet 0 04/12/20 04/12/20 Discontin tabletIndications: Spasm THREE TIMES DAILY 18 18 ued of muscle NEEDED. Hospital, Clinic, or Ordered Dose Route Frequency Start End Date Status Other Facility Date Administered Medication ketorolac (TORADOL) 60 60 mg IM ONCE [...] with [employer] HMO; request authorization from [facility]; awaiting authorization. Diane Plasencia [id number] 10/27/14-spoke to Michael Pisano/[facility] Preauthorization Department [phone], gave the auth # [id number] effective 10/24/14-12/22/14 to a facility: [facility] [phone]/fax#: [phone]; spoke to Dc/[facility] and scheduled patient 11/01/2014@17:45 PM; message left x2, at patients voicemail advising of the scheduled appointment. Diane Plasencia [id number] 11/08/14-received a fax from Jayne Kaminski/[facility] [phone]/tel [phone] informing that the patient has cancelled the exam with their location and had exam done somewhere else; called patient x2, left messages on his voice mail, advising to call back for further information; authorization from [employer] was for [facility]; unknown where the patient went. Diane Plasencia [phone] 11/10/14-message left advising to call back; name of the facility for MRI is needed for authorization from [facility]. Diane Plasencia [id number] 11/13/14-per patient he could not remember the name of the facility; he will ask his later. Diane Plasencia [id number] 11/27/14-per patient he couldn't remember the name of the facility; per patients , she is not at home, she will call back to give us the name of the facility. Diane Plasencia [phone] 12/19/14 - Case closed. Patient had MRI done @ own choice location. Documentation noted in record. Ivanna Quintana RN # [id number] Skin tags 12/06/2007 Somatization disorder 07/31/2007 BORDERLINE [...] Encounters Date Type Specialty Care Team Description 04/09/2018 Refill Family Practice Darline Roman, Spasm of muscle RN [...] right-sided sciatica; Tinea 02/22/2018 Orders Only Family Practice Edilson Roberson MD Pain management 02/16/2018 Refill Family Practice Edilson Roberson MD 02/15/2018 Refill Family Practice Edilson Roberson MD Chronic left- sided low back pain with sciatica, sciatica laterality unspecified; Pain management; Spasm of muscle 01/31/2018 Emergency Emergency Medicine Navin Pisano MD Gastroesophageal reflux disease with esophagitis (Primary Dx); Abdominal complaints 01/12/2018 Office Visit [facility] Edilson Roberson MD Excessive and redundant [...] disease with acute exacerbation 12/08/2017 Office Visit [facility] Edilson Roberson MD Skin infection (Primary Dx); Spasm of muscle; 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 pylori infection; Gastroesophageal reflux disease with esophagitis 12/03/2017 Refill [facility] Edilson Roberson MD 12/01/2017 Refill [facility] Edilson Roberson MD Anxiety; Spasm of muscle 11/28/2017 Refill [facility] Edilson Roberson MD Chronic obstructive pulmonary disease with acute exacerbation 11/26/2017 Refill [facility] Edilson Roberson MD Spasm of muscle; Anxiety; Chronic obstructive pulmonary disease with acute exacerbation 10/13/2017 Office Visit [facility] Edilson Roberson MD Bilateral low back pain with sciatica, sciatica laterality unspecified, unspecified chronicity (Primary Dx); 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; Anxiety; Spasm of muscle; Chronic left-sided low back pain with sciatica, sciatica laterality unspecified; Pain management; Tinea; Mixed hyperlipidemia; PND (post-nasal drip); Other seasonal allergic rhinitis 09/28/2017 Refill [facility] Edilson Roberson MD 09/23/2017 Refill [facility] Edilson Roberson MD Chronic left- sided low back pain with sciatica, sciatica laterality unspecified; Pain management; Anxiety; Spasm of muscle 09/07/2017 Refill [facility] Edilson Lara MD 09/04/2017 Refill [facility] Edilson Roberson MD Spasm of muscle 09/04/2017 Refill [facility] Edilson Roberson MD Chronic left- sided low back pain with sciatica, sciatica laterality unspecified; Pain management; Anxiety 08/19/2017 Refill [facility] Edilson Roberson MD 08/18/2017 Refill [facility] Edilson Roberson MD Spasm of muscle 08/16/2017 Refill [facility] Edilson Roberson MD Cough 08/11/2017 Refill [facility] Edilson Roberson MD 08/10/2017 Refill [facility] Edilson Roberson MD Anxiety; Chronic left-sided low back pain with sciatica, sciatica laterality unspecified; Pain management 08/03/2017 Refill [facility] Edilson Roberson MD Tinea 07/21/2017 Telephone Social Work Evelyn Lomax [facility] Pre-clinic Chart Review; Director Of Public Health (DME) 07/01/2017 Refill [facility] Edilson Roberson MD 06/30/2017 Refill [facility] Edilson Roberson MD 06/30/2017 Refill [facility] Edilson Roberson MD Anxiety; Spasm of muscle; Chronic left-sided low back pain with sciatica, sciatica laterality unspecified; Pain management 06/26/2017 Refill [facility] Edilson Roberson MD Spasm of muscle; Anxiety 06/26/2017 Telephone Social Work Evelyn Lomax [facility] Pre-clinic Chart Review; Director Of Public Health (Wheel Chair) 06/09/2017 Telephone [facility] Dyan Le RN Results 06/08/2017 Orders Only [facility] Edilson Roberson MD Mixed hyperlipidemia (Primary Dx) 06/08/2017 Telephone [facility] Dyan Le RN Results (Patient requesting for provider to review his outside lab work and give him a call) 06/02/2017 Refill [facility] Edilson Roberson MD 06/01/2017 Refill [facility] Edilson Roberson MD Anxiety; Spasm of muscle 05/27/2017 Orders Only [facility] Edilson Roberson MD Spasm of muscle 05/22/2017 Emergency Emergency Medicine Dysphagia, unspecified - type (Primary Dx) 05/23/2017 05/07/2017 Office Visit Family Practice Cynthia Jacques, Chronic left-sided low DO back pain with right-sided sciatica (Primary Dx); Need for influenza vaccination; Severe obesity (BMI >=40); Borderline diabetes; Throat irritation; PND (post-nasal drip); Other seasonal allergic rhinitis 05/07/2017 Telephone Family Practice Edilson Roberson, Refill Request Physician 04/17/2017 Telephone Social Work Hattie Knight, RN Durable Medical Equipment (Received from HIM/Medical Records: Title 19 for completion.); Pre-clinic Chart Review after 04/13/2017 Immunizations Name Dates Previously Given Next Due [...] Vital Sign Reading Time Taken Blood Pressure 112/79 03/30/2018 12:53 PM CDT Pulse 76 03/30/2018 12:53 PM CDT Temperature 36.9 C (98.5 F) 03/30/2018 12:53 PM CDT Respiratory Rate 20 03/30/2018 12:53 PM CDT Oxygen Saturation 100% 01/31/2018 7:10 AM CDT Inhaled Oxygen - - Concentration Weight 108.9 kg (240 lb) 03/30/2018 12:53 PM CDT Height 172.7 cm (5' 8") 03/30/2018 12:53 PM CDT Body Mass Index 36.49 03/30/2018 12:53 PM CDT Plan of Treatment Date Type Specialty Care Team Description 04/28/2018 Lab Appointment Lab Edilson Roberson MD uds [address] [facility] [place] [id number] 04/30/2018 Office Visit Family Practice Edilson Roberson MD norla [address] [place] [facility] [phone] Goals Patient Goal Type Goal Recent Progress Patient-Stat Author ed? Lifestyle Feel more energetic No Eugenia Madera, Supervisor Personnel Clerks Procedures Procedure Name Priority Date/Time Associated Diagnosis Comments GASTRIN, SERUM Routine 03/30/2018 Encounter for vaccination [...] Routine 05/22/2017 Results for this 9:48 PM CONSTRUCTION ECONOMIST procedure are in the results section. UA CHEMISTRIES STAT 05/22/2017 Results for this 9:40 PM CONSTRUCTION ECONOMIST procedure are in the results section. LIPASE STAT 05/22/2017 Results for this 9:40 PM CONSTRUCTION ECONOMIST procedure are in the results section. LIVER PROFILE STAT 05/22/2017 Results for this 9:40 PM CONSTRUCTION ECONOMIST procedure are in the results section. HIV-1/HIV-2 ROUTINE STAT 05/22/2017 Results for this SCREENING 9:40 PM CONSTRUCTION ECONOMIST procedure are in the results section. CBC/DIFF STAT 05/22/2017 Results for this 9:40 PM CONSTRUCTION ECONOMIST procedure are in the results section. THROAT CULTURE Routine 05/07/2017 Results for this 1:38 PM CONSTRUCTION ECONOMIST procedure are in the results section. HEMOGLOBIN A1C Routine 05/07/2017 Borderline diabetes Results for this 1:05 PM CONSTRUCTION ECONOMIST Severe obesity (BMI >=40) procedure are in the results section. RAPID INFLUENZA SCREEN STAT 05/07/2017 Throat irritation Results for this 12:22 PM CONSTRUCTION ECONOMIST procedure are in the results section. GROUP A STREP SCREEN STAT 05/07/2017 Throat irritation Results for this 12:22 PM CONSTRUCTION ECONOMIST procedure are in the results section. after 04/13/2017 Results * HIV-1/HIV-2 ROUTINE SCREENING (03/30/2018 3:00 PM) Only the most recent of 3 results within the time period is included. HIV-1/HIV-2 Negative NEG BT MAIN-STATION 3 Performing Organization Address City/[facility] Phone Number [facility] BT MAIN-STATION 3 * GASTRIN, SERUM (03/30/2018 3:00 PM) Gastrin, Serum 25 LABORATORY Reference range: 0 to 115 [employer]POR[employer] OF Unit: pg/mL RAMO (note) Siemens Immulite 2000 Immunochemiluminometric assay (ICMA) Specimen Blood Performing Organization Address City/[facility]/Zipcode Phone Number [facility] [address] [place] [address] [facility] 145 * HEMOGLOBIN A1C (03/30/2018 3:00 PM) Only the most recent of 2 results within the time period is included. Hemoglobin A1c 5.4 4.3 - 6.1 % BT DIAGNOSTIC IMMUNOLOGY Est Average Gluc 108.3 mg/dL BT DIAGNOSTIC IMMUNOLOGY Specimen Blood Performing Organization Address City/[facility] Phone Number [facility] BT DIAGNOSTIC IMMUNOLOGY * B NATRIURETIC PEPT (03/30/2018 3:00 PM) B Natriuretic Pept 25 <101 pg/mL BT MAIN-STATION 1 Specimen Blood Performing Organization Address [facility] Phone Number [facility] BT MAIN-STATION 1 * ENDOMYSIAL AB IGA (03/30/2018 3:00 PM) Endomysial Ab IgA Negative LABORATORY Reference range: Negative [facility] Specimen Blood Performing Organization Address [facility] Phone Number [facility] [address] [place] [address] [facility] 145 * TSH (03/30/2018 3:00 PM) TSH 0.94 0.57 - 3.74 uIU/mL BT MAIN-STATION 1 Specimen Blood Performing Organization Address [facility] Phone Number [facility] BT MAIN-STATION 1 * UA CHEMISTRIES (03/30/2018 3:00 PM) Only the most recent of 3 results within the time period is included. Color Yellow BT MAIN-STATION 4 Clarity Clear BT MAIN-STATION 4 Spec [place] 1.010 1.001 - 1.035 BT MAIN-STATION 4 [...] MAIN-STATION 4 Specimen Urine Performing Organization Address [facility] Phone Number [place] BT MAIN-STATION 4 * ELECTROLYTES (03/30/2018 3:00 PM) Sodium 138 136 - 145 mmol/L BT MAIN-STATION 1 Potassium 3.8 3.5 - 5.1 mmol/L BT MAIN-STATION 1 Chloride 100 98 - 107 mmol/L BT MAIN-STATION 1 CO2 29 21 - 31 mmol/L BT MAIN-STATION 1 Anion Gap 9 BT MAIN-STATION 1 Specimen Blood Performing Organization Address [facility] Phone Number [facility] MAIN-STATION 1 * LIVER PROFILE (03/30/2018 3:00 PM) Only the most recent of 3 [...] MAIN-STATION 1 Specimen Blood Performing Organization Address [facility] Phone Number [facility] MAIN-STATION 1 * LIPID PROFILE (03/30/2018 3:00 PM) Cholesterol 125 mg/dL BT MAIN-STATION 1 Comment: REFERENCE RANGE: Desirable: <200 mg/dL Borderline: 200-240 mg/dL High Risk: >240 mg/dL Triglyceride 62 <150 mg/dL BT MAIN-STATION 1 Comment: REFERENCE RANGE: Normal: <150 mg/dL Borderline High: 150-199 mg/dL High: 200-499 mg/dL Very High: >bw=144 mg/dL HDL 40 mg/dL BT MAIN-STATION 1 Comment: Increased CHD risk: <40 mg/dL Decreased CHD risk: >60 mg/dL LDL 73 mg/dL BT MAIN-STATION 1 Comment: REFERENCE RANGE: Optimal: <100 mg/dL Near Optimal: 100-129 mg/dL Borderline High: 130-159 mg/dL High: 160-189 mg/dL Very High: >oo=992 mg/dL Specimen Blood Performing Organization Address [facility] Phone Number [facility] MAIN-STATION 1 * LIPASE (03/30/2018 3:00 PM) Only the most recent of 3 results within the time period is included. Lipase 16 11 - 82 U/L BT MAIN-STATION 1 Specimen Blood Performing Organization Address [facility] Phone Number [facility] BT MAIN-STATION 1 * HEPATITIS PANEL (03/30/2018 3:00 PM) HCV IgG Negative NEG BT MAIN-STATION 3 HBsAg Negative NEG BT MAIN-STATION 3 HAV, IgM Negative NEG BT MAIN-STATION 3 HBcAb, IgM Negative NEG BT MAIN-STATION 3 Specimen Blood Performing Organization Address [facility] Phone Number MISYS BT MAIN-STATION 3 * GLUCOSE, FASTING (03/30/2018 3:00 PM) Glucose, Fasting 90 74 - 106 mg/dL BT MAIN-STATION 1 Specimen Blood Performing Organization Address [facility] Phone Number MISYS BT MAIN-STATION 1 * [...] MAIN-STATION 2 Specimen Blood Performing Organization Address [facility] Phone Number MIS[facility] BT MAIN-STATION 2 * UREA NITROGEN/CREA (03/30/2018 3:00 PM) Urea Nitrogen 14 7 - 25 mg/dL BT MAIN-STATION 1 Creatinine 0.80 0.7 - 1.3 mg/dL BT MAIN-STATION 1 GFR, Estimated >60 mL/min/1.73 m2 BT MAIN-STATION 1 GFR, Estim, Afr-Am >60 mL/min/1.73 m2 BT MAIN-STATION 1 Specimen Other (Specify in Comments) Performing Organization Address City/[facility] Phone Number MISYS BT MAIN-STATION 1 * AMYLASE (03/30/2018 3:00 PM) Amylase 38 29 - 103 U/L BT MAIN-STATION 1 Specimen Blood Performing Organization Address [facility] Phone Number M[facility] BT MAIN-STATION 1 * URINE DRUG SCREEN (02/22/2018 9:43 AM) Only the most recent of 2 results within the time period is included. Amphetamine Negative NEG BT MAIN-STATION 1 Comment: Calibrated Standard: D-Methamphetamine Positive if urine level >qk=0165 ng/mL Test performed on [id number] using EMIT Immunoassay Barbiturate Negative NEG BT MAIN-STATION 1 Comment: Calibrated Standard: Secobarbital Positive if urine level is >xq=865 ng/mL Test performed on [id number] using EMIT Immunoassay Benzodiazepine Negative NEG BT MAIN-STATION 1 Comment: Calibrated Standard: Lormethazepam Positive if urine level is >jb=307 ng/mL Test performed on [id number] using EMIT Immunoassay Cannabinoid Negative NEG BT MAIN-STATION 1 Comment: Calibrated Standard: 11 nor-delta(9)-THC carboxylic a Positive if urine level >or=50 Test performed on [id number] using EMIT Immunoassay Cocaine Negative NEG BT MAIN-STATION 1 Comment: Calibrated Standard: Benzoylecgonine Positive if urine level >rt=368 Test performed on [id number] using EMIT Immunoassay Opiate, Ur Negative NEG BT MAIN-STATION 1 Comment: Calibrated Standard: Morphine Positive if urine level >sp=767 Test performed on [id number] using EMIT Immunoassay PCP Negative NEG BT MAIN-STATION 1 Comment: Calibrated Standard: Phencyclidine Positive if urine level >or=25 Test performed on [id number] using EMIT Immunoassay Urine Toxicology Screen results are to be used only for Medical purposes. Specimen Urine Performing Organization Address City/[facility] Phone Number [facility] BT MAIN-STATION 1 * [...] SMS * BMP POC (01/30/2018 4:09 PM) Only [...] m2 BT MAIN-STATION 1 Performing Organization Address City/State/Zipcode Phone Number MISYS BT MAIN-STATION 1 * TROPONIN I POC (01/30/2018 4:07 PM) Troponin POC 0.00Comment: Physician 0.00 - 0.08 ng/mL BT MAIN-STATION 1 Notified Performing Organization Address City/State/Zipcode Phone Number MISYS [...] MAIN-STATION 2 Specimen Blood Performing Organization Address [facility] Phone Number MISYS BT MAIN-STATION 2 * 12 LEAD EKG (01/30/2018 3:56 PM) 12 LEAD EKG FOR CHP [facility] Test Date:2018-01-30 Pat Name: REINIER HEMPHILL Department: Room: Gender: M Adjustment Examiner: [id number] :1960-0 8-01 Requested By: Order Number: R ciera [place]: Carmen Joseph Measurements Intervals [place] Rate: 60 P:-11 NM: 165 QRS: -21 QRSD: 94 T:43 QT: 368 QTc:370 Interpretive Statements SINUS RHYTHM BORDERLINE LEFT AXIS DEVIATION LOW QRS VOLTAGE IN PRECORDIAL LEADS PATTERN CONSISTENT WITH PULMONARY DISEASE INCOMPLETE RIGHT BUNDLE BRANCH BLOCK Electronically Signed On 01-30-18 16:17:20 CDT by Carmen Joseph Performing Organization Address City/[facility] Phone Number [facility] * THROAT CULTURE (05/07/2017 1:38 PM) Spec Description Throat swab [facility] Order Comments None [facility] Culture Normal izabela, no Beta BT MICROBIOLOGY Streptococcus isolated Report Status Final 05/10/2017 BT MICROBIOLOGY Specimen Throat Performing Organization Address City/[facility] Phone Number [facility] BT MICROBIOLOGY * RAPID INFLUENZA SCREEN (05/07/2017 12:22 PM) Spec Description Nasopharyngeal swab [facility] Order Comments None BT MAIN-STATION 2 Direct Exam Negative for Influenza A virus [facility] Negative for Influenza B virus Report Status Final 05/07/2017 [facility] Specimen Nasopharyngeal - Nasopharyngeal Swab Performing Organization Address [facility] Phone Number [facility] BT MAIN-STATION 2 * GROUP A STREP SCREEN (05/07/2017 12:22 PM) Group A Strep Negative NEG [facility] Specimen Other (Specify in Comments) - THROAT Performing Organization Address City/[facility] Phone Number [facility] after 04/13/2017
--- OUTSIDE RECORDS SUMMARY | 2018-12-20 16:22 | XMS REPORT | Clinical Summary ---
Author Author [facility] Organization [facility] Address Unknown Phone Unavailable Care Team Providers Care Orbitread Operator Name Role Phone Edilson Roberson MD PCP [...] solutionIndications: COPD exacerbation Nebulizer & Comp[place] [facility]Non-[place]rug; Combo 1 Device 0 12/28/19 Active For Neb DeviIndications: Route) route Use as 16 COPD exacerbation directed. Nebulizer Accessories by [facility]Non-Drug; Combo 1 Each 0 12/28/19 Active MiscIndications: COPD Route) route Nebulizer 16 exacerbation mask. albuterol (PROVENTIL) 2.5 Inhale 3 mL by mouth 75 mL 0 12/28/19 Active mg /3 mL (0.083 %) every 6 hours as needed 16 nebulizer for Wheezing. solutionIndications: COPD exacerbation Nebulizer & Compressor 1 Device by 1 Device 0 02/25/20 Active For Neb DeviIndications: [facility]Non-Drug; Combo 16 Chronic obstructive Route) route 4 [...] Device 0 05/02/20 Active For Neb DeviIndications: [facility]Non-Drug; Combo 16 Chronic obstructive Route) route 4 [...] with [employer] HMO; request authorization from [facility]; awaiting authorization. Diane Plasencia [id number] 10/27/14-spoke to Michael Pisano/[facility] Preauthorization Department [phone], gave the auth # [id number] effective 10/24/14-12/22/14 to a facility: [facility] 208 371 9182/fax#: [phone]; spoke to Dc/[facility] and scheduled patient 11/01/2014@17:45 PM; message left x2, at patients voicemail advising of the scheduled appointment. Diane Plasencia [id number] 11/08/14-received a fax from Jayne Kaminski/[facility] [phone]/tel [phone] informing that the patient has cancelled the exam with their location and had exam done somewhere else; called patient x2, left messages on his voice mail, advising to call back for further information; authorization from [facility] was for [facility]; unknown where the patient went. Diane Plasencia [id number] 11/10/14-message left advising to call back; name of the facility for MRI is needed for authorization from [facility]. Diane Plasencia [id number] 11/13/14-per patient he could not remember the name of the facility; he will ask his later. Diane Plasencia [id number] 11/27/14-per patient he couldn't remember the name of the facility; per patients , she is not at home, she will call back to give us the name of the facility. Diane Plasencia [id number] 12/19/14 - Case closed. Patient had MRI done @ own choice location. Documentation noted in record. 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; Tinea; Spasm of muscle 04/30/2018 Orders Only Family Practice Edilson Roberson MD Pain management 04/21/2018 Refill [facility] Darline Roman, Chronic left- sided low RN back pain with sciatica, sciatica laterality unspecified; Pain management 04/09/2018 Refill Family Practice Darline Roman, Spasm of muscle RN 03/30/2018 Office Visit Family Practice Edilson Roberson MD Encounter for vaccination (Primary Dx); GI problem; Belching; Abdominal fullness; Gastroesophageal reflux disease with esophagitis; Aerophagia; Bronchospasm 03/22/2018 Telephone [facility] Darline Roman, Results RN 03/09/2018 Office [...] with right-sided sciatica; Tinea 02/22/2018 Orders Only [facility] Edilson Roberson MD Pain management 02/16/2018 Refill [facility] Edilson Lara MD 02/15/2018 Refill [facility] Edilson Roberson MD Chronic left- sided low back pain with sciatica, sciatica laterality unspecified; Pain management; Spasm of muscle 01/31/2018 Emergency Emergency Medicine Navin Pisano MD Gastroesophageal reflux disease with esophagitis (Primary Dx); Abdominal complaints 01/12/2018 Office Visit [facility] Edilson Roberson MD Excessive and redundant [...] disease with acute exacerbation 12/08/2017 Office Visit [facility] Edilson Lara MD Skin infection (Primary Dx); Spasm of muscle; 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 pylori infection; Gastroesophageal reflux disease with esophagitis 12/03/2017 Refill [facility] Edilson Lara MD 12/01/2017 Refill [facility] Edilson Roberson MD Anxiety; Spasm of muscle 11/28/2017 Refill [facility] Edilson Lara MD Chronic obstructive pulmonary disease with acute exacerbation 11/26/2017 Refill [facility] Edilson Lara MD Spasm of muscle; Anxiety; Chronic obstructive pulmonary disease with acute exacerbation 10/13/2017 Office Visit [facility] Edilson Roberson MD Bilateral low back pain with sciatica, sciatica laterality unspecified, unspecified chronicity (Primary Dx); 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; Anxiety; Spasm of muscle; Chronic left-sided low back pain with sciatica, sciatica laterality unspecified; Pain management; Tinea; Mixed hyperlipidemia; PND (post-nasal drip); Other seasonal allergic rhinitis 09/28/2017 Refill [facility] Edilson Lara MD 09/23/2017 Refill [facility] Edilson Roberson MD Chronic left- sided low back pain with sciatica, sciatica laterality unspecified; Pain management; Anxiety; Spasm of muscle 09/07/2017 Refill [facility] Edilson Roberson MD 09/04/2017 Refill [facility] Edilson Roberson MD Spasm of muscle 09/04/2017 Refill [facility] Edilson Roberson MD Chronic left- sided low back pain with sciatica, sciatica laterality unspecified; Pain management; Anxiety 08/19/2017 Refill [facility] Edilson Roberson MD 08/18/2017 Refill [facility] Edilson Roberson MD Spasm of muscle 08/16/2017 Refill [facility] Edilson Roberson MD Cough 08/11/2017 Refill [facility] Edilson Roberson MD 08/10/2017 Refill [facility] Edilson Roberson MD Anxiety; Chronic left-sided low back pain with sciatica, sciatica laterality unspecified; Pain management 08/03/2017 Refill [facility] Edilson Roberson MD Tinea 07/21/2017 Telephone Social Work Evelyn Lomax LMSW Pre-clinic Chart Review; [employer] (DME) 07/01/2017 Refill [facility] Edilson Roberson MD 06/30/2017 Refill [facility] Edilson Roberson MD 06/30/2017 Refill [facility] Edilson Roberson MD Anxiety; Spasm of muscle; Chronic left-sided low back pain with sciatica, sciatica laterality unspecified; Pain management 06/26/2017 Refill [facility] Edilson Roberson MD Spasm of muscle; Anxiety 06/26/2017 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 Pre-clinic Chart Review; [employer]her [employer] (Wheel Chair) 06/09/2017 Telephone [facility] Dyan Le RN Results 06/08/2017 Orders Only [facility] Edilson Roberson MD Mixed hyperlipidemia (Primary Dx) 06/08/2017 Telephone Family Practice Dyan Le RN Results (Patient requesting for provider to review his outside lab work and give him a call) 06/02/2017 Refill [facility] Edilson Roberson MD 06/01/2017 Refill [facility] Edilson Roberson MD Anxiety; Spasm of muscle 05/27/2017 Orders Only Family Practice Edilson Roberson MD Spasm of muscle 05/22/2017 Emergency Emergency Medicine Dysphagia, unspecified - type (Primary Dx) 05/23/2017 after 05/10/2017 Immunizations Name Dates Previously Given Next Due [...] Treatment Date Type Specialty Care Team Description 05/28/2018 Lab Appointment Lab Edilson Roberson MD [address] [facility] JESSICA Jiang [phone] 06/04/2018 Office Visit Family Practice Edilson Roberson MD [place] [address] Office [facility] JESSICA Jiang [phone] Goals Patient Goal Type Goal Recent Progress Patient-Stat Author ed? Lifestyle Feel more energetic No Eugenia Madera, Surgery Consultant Procedures Procedure Name Priority Date/Time Associated Diagnosis [...] Routine 05/22/2017 Results for this 9:48 PM PROGRAM AND RESEARCH COORDINATOR procedure are in the results section. UA CHEMISTRIES STAT 05/22/2017 Results for this 9:40 PM PROGRAM AND RESEARCH COORDINATOR procedure are in the results section. LIPASE STAT 05/22/2017 Results for this 9:40 PM PROGRAM AND RESEARCH COORDINATOR procedure are in the results section. LIVER PROFILE STAT 05/22/2017 Results for this 9:40 PM PROGRAM AND RESEARCH COORDINATOR procedure are in the results section. HIV-1/HIV-2 ROUTINE STAT 05/22/2017 Results for this SCREENING 9:40 PM PROGRAM AND RESEARCH COORDINATOR procedure are in the results section. CBC/DIFF STAT 05/22/2017 Results for this 9:40 PM PROGRAM AND RESEARCH COORDINATOR procedure are in the results section. after 05/10/2017 Results * URINE DRUG SCREEN (04/30/2018 2:08 PM) Only the most recent of 3 results within the time period is included. Amphetamine Negative NEG BT MAIN-STATION 1 Comment: Calibrated Standard: D-Methamphetamine Positive if urine level >cx=8464 ng/mL Test performed on [id number] using EMIT Immunoassay Barbiturate Negative NEG BT MAIN-STATION 1 Comment: Calibrated Standard: Secobarbital Positive if urine level is >fh=482 ng/mL Test performed on [id number] using EMIT Immunoassay Benzodiazepine Negative NEG BT MAIN-STATION 1 Comment: Calibrated Standard: Lormethazepam Positive if urine level is >sh=157 ng/mL Test performed on [id number] using EMIT Immunoassay Cannabinoid Negative NEG BT MAIN-STATION 1 Comment: Calibrated Standard: 11 nor-delta(9)-THC carboxylic a Positive if urine level >or=50 Test performed on [id number] using EMIT Immunoassay Cocaine Negative NEG BT MAIN-STATION 1 Comment: Calibrated Standard: Benzoylecgonine Positive if urine level >wy=865 Test performed on [id number] using EMIT Immunoassay Opiate, Ur Negative NEG BT MAIN-STATION 1 Comment: Calibrated Standard: Morphine Positive if urine level >kl=254 Test performed on [id number] using EMIT Immunoassay PCP Negative NEG BT MAIN-STATION 1 Comment: Calibrated Standard: Phencyclidine Positive if urine level >or=25 Test performed on [id number] using EMIT Immunoassay Urine Toxicology Screen results are to be used only for Medical purposes. Specimen Urine Performing Organization Address [facility] Phone Number [employer] MAIN-STATION 1 * HIV-1/HIV-2 ROUTINE SCREENING (03/30/2018 3:00 PM) Only the most recent of 3 results within the time period is included. HIV-1/HIV-2 Negative NEG BT MAIN-STATION 3 Performing Organization Address [facility] Phone Number [employer] BT MAIN-STATION 3 * GASTRIN, SERUM (03/30/2018 3:00 PM) Gastrin, Serum 25 LABORATORY Reference range: 0 to 115 CORPORATION OF Unit: pg/mL RAMO (note) Siemens Vish[employer] Precision Groupulite 2000 Immunochemiluminometric assay (ICMA) Specimen Blood Performing Organization Address [facility] Phone Number [email or web address] OF [address] [place] [address] RAMO 145 * HEMOGLOBIN A1C (03/30/2018 3:00 PM) Hemoglobin A1c 5.4 4.3 - 6.1 % BT DIAGNOSTIC IMMUNOLOGY Est Average Gluc 108.3 mg/dL BT DIAGNOSTIC IMMUNOLOGY Specimen Blood Performing Organization Address [facility] Phone Number [employer] BT DIAGNOSTIC IMMUNOLOGY * B NATRIURETIC PEPT (03/30/2018 3:00 PM) B Natriuretic Pept 25 <101 pg/mL BT MAIN-STATION 1 Specimen Blood Performing Organization Address [facility] Phone Number [employer] MAIN-STATION 1 * ENDOMYSIAL AB IGA (03/30/2018 3:00 PM) Endomysial Ab IgA Negative LABORATORY Reference range: Negative CORPORATION OF RAMO Specimen Blood Performing Organization Address [facility] Phone Number [email or web address] OF [address] [place] [address] RAMO 145 * TSH (03/30/2018 3:00 PM) TSH 0.94 0.57 - 3.74 uIU/mL BT MAIN-STATION 1 Specimen Blood Performing Organization Address [facility] Phone Number [employer] BT MAIN-STATION 1 * UA CHEMISTRIES (03/30/2018 3:00 PM) Only the most recent of 3 results within the time period is included. Color Yellow BT MAIN-STATION 4 Clarity Clear BT MAIN-STATION 4 Spec [place] 1.010 1.001 - 1.035 BT MAIN-STATION 4 [...] Specimen Urine Performing Organization Address [facility] Phone Number [employer] BT MAIN-STATION 4 * ELECTROLYTES (03/30/2018 3:00 PM) Sodium 138 136 - 145 mmol/L BT MAIN-STATION 1 Potassium 3.8 3.5 - 5.1 mmol/L BT MAIN-STATION 1 Chloride 100 98 - 107 mmol/L BT MAIN-STATION 1 CO2 29 21 - 31 mmol/L BT MAIN-STATION 1 Anion Gap 9 BT MAIN-STATION 1 Specimen Blood Performing Organization Address [facility] Phone Number [employer]ISYS BT MAIN-STATION 1 * [...] Specimen Blood Performing Organization Address [facility]/[email or web address] Phone Number [employer] BT MAIN-STATION 1 * LIPID PROFILE (03/30/2018 3:00 PM) Cholesterol 125 mg/dL BT MAIN-STATION 1 Comment: REFERENCE RANGE: Desirable: <200 mg/dL Borderline: 200-240 mg/dL High Risk: >240 mg/dL Triglyceride 62 <150 mg/dL BT MAIN-STATION 1 Comment: REFERENCE RANGE: Normal: <150 mg/dL Borderline High: 150-199 mg/dL High: 200-499 mg/dL Very High: >nl=440 mg/dL HDL 40 mg/dL BT MAIN-STATION 1 Comment: Increased CHD risk: <40 mg/dL Decreased CHD risk: >60 mg/dL LDL 73 mg/dL BT MAIN-STATION 1 Comment: REFERENCE RANGE: Optimal: <100 mg/dL Near Optimal: 100-129 mg/dL Borderline High: 130-159 mg/dL High: 160-189 mg/dL Very High: >gj=704 mg/dL Specimen Blood Performing Organization Address [facility] Phone Number [facility] * LIPASE (03/30/2018 3:00 PM) Only the most recent of 3 results within the time period is included. Lipase 16 11 - 82 U/L MAIN-STATION 1 Specimen Blood Performing Organization Address [facility] Phone Number [facility] * HEPATITIS PANEL (03/30/2018 3:00 PM) HCV IgG Negative NEG MAIN-STATION 3 HBsAg Negative NEG MAIN-STATION 3 HAV, IgM Negative NEG BT MAIN-STATION 3 HBcAb, IgM Negative NEG MAIN-STATION 3 Specimen Blood Performing Organization Address [facility] Phone Number [facility] * GLUCOSE, FASTING (03/30/2018 3:00 PM) Glucose, Fasting 90 74 - 106 mg/dL MAIN-STATION 1 Specimen Blood Performing Organization Address [facility] Phone Number [employer]ISYS MAIN-STATION 1 * CBC (03/30/2018 3:00 PM) [...] MAIN-STATION 2 Specimen Blood Performing Organization Address [facility] Center[facility] Phone Number [employer]IS[employer] BT MAIN-STATION 2 * UREA NITROGEN/CREA (03/30/2018 3:00 PM) Urea Nitrogen 14 7 - 25 mg/dL BT MAIN-STATION 1 Creatinine 0.80 0.7 - 1.3 mg/dL BT MAIN-STATION 1 GFR, Estimated >60 mL/min/1.73 m2 BT MAIN-STATION 1 GFR, Estim, Afr-Am >60 mL/min/1.73 m2 BT MAIN-STATION 1 Specimen Other (Specify in Comments) Performing Organization Address [facility] CenterArt[facility]arma[facility] Phone Number MISYS MAIN-STATION 1 * AMYLASE (03/30/2018 3:00 PM) Amylase 38 29 - 103 U/L BT MAIN-STATION 1 Specimen Blood Performing Organization Address [facility] Center[facility]arma[facility] Phone Number [employer]ISYS BT MAIN-STATION 1 * [...] MAIN-STATION 1 Performing Organization Address [facility]/[employer] Phone Number [employer]ISYS BT MAIN-STATION 1 * [...] MAIN-STATION 2 Specimen Blood Performing Organization Address [facility] Phone Number [employer] BT MAIN-STATION 2 * 12 LEAD EKG (01/30/2018 3:56 PM) 12 LEAD EKG FOR [facility] Test Date:2018-01-30 Pat Name: REINIER HEMPHILL Department: Room: Gender: M Shop Tech: [id number] :[id number] Requested By: Order Number: Daniele vang MD: Carmen Joseph Measurements Intervals [place] Rate: 60 P:-11 LA: 165 QRS: -21 QRSD: 94 T:43 QT: 368 QTc:370 Interpretive Statements SINUS RHYTHM BORDERLINE LEFT AXIS DEVIATION LOW QRS VOLTAGE IN PRECORDIAL LEADS PATTERN CONSISTENT WITH PULMONARY DISEASE INCOMPLETE RIGHT BUNDLE BRANCH BLOCK Electronically Signed On 01-30-18 16:17:20 CDT by Carmen Joseph Performing Organization Address [facility] Phone Number [facility] after 05/10/2017
--- OUTSIDE RECORDS SUMMARY | 2018-12-20 16:23 | XMS REPORT | Clinical Summary ---
Author Author [facility] Organization [facility] Address Unknown Phone Unavailable Care Team Providers Care Protozoologist Name Role Phone Edilson Roberson MD PCP [...] solutionIndications: COPD exacerbation Nebulizer & Compressor by [facility]Non-Drug; Combo 1 Device 0 12/28/19 Active For Neb DeviIndications: Route) route Use as 16 COPD exacerbation directed. Nebulizer Accessories by [facility].(Non-Drug; Combo 1 Each 0 12/28/19 Active MiscIndications: COPD Route) route Nebulizer 16 exacerbation mask. albuterol (PROVENTIL) 2.5 Inhale 3 mL by mouth 75 mL 0 12/28/19 Active mg /3 mL (0.083 %) every 6 hours as needed 16 nebulizer for Wheezing. solutionIndications: COPD exacerbation Nebulizer & Compressor 1 Device by 1 Device 0 02/25/20 Active For Neb DeviIndications: [facility].(Non-Drug; Combo 16 Chronic obstructive Route) route 4 [...] Device 0 05/02/20 Active For Neb DeviIndications: [facility].(Non-Drug; Combo 16 Chronic obstructive Route) route 4 [...] with [employer] HMO; request authorization from [facility]; awaiting authorization. Diane Plasencia [id number] 10/27/14-spoke to Michael Pisano/[facility] Preauthorization Department [phone], gave the auth # [id number] effective 10/24/14-12/22/14 to a facility: [facility] [phone]/fax#: [phone]; spoke to Dc/[facility] and scheduled patient 11/01/2014@17:45 PM; message left x2, at patients voicemail advising of the scheduled appointment. Diane Plasencia [id number] 11/08/14-received a fax from Jayne Kaminski/[facility] [phone]/tel [phone] informing that the patient has cancelled the exam with their location and had exam done somewhere else; called patient x2, left messages on his voice mail, advising to call back for further information; authorization from [employer] was for [facility]; unknown where the patient went. Diane Plasencia [id number] 11/10/14-message left advising to call back; name of the facility for MRI is needed for authorization from [facility]. Diane Plasencia [id number] 11/13/14-per patient he could not remember the name of the facility; he will ask his later. Diane Plasencia [id number] 11/27/14-per patient he couldn't remember the name of the facility; per patients , she is not at home, she will call back to give us the name of the facility. Diane Plasencia [id number] 12/19/14 - Case closed. Patient had MRI done @ own choice location. Documentation noted in record. Ivanna Quintana RN # [id number] Skin tags 12/06/2007 Somatization disorder 07/31/2007 BORDERLINE [...] Edilson Roberson MD Pain management 04/21/2018 Refill [facility] Darline Roman, Chronic left- sided low RN back pain with sciatica, sciatica laterality unspecified; Pain management 04/09/2018 Refill Family Practice Darline Roman, Spasm of muscle RN 03/30/2018 Office Visit Family Practice Edilson Roberson MD Encounter for vaccination (Primary Dx); GI problem; Belching; Abdominal fullness; Gastroesophageal reflux disease with esophagitis; Aerophagia; Bronchospasm 03/22/2018 Telephone [facility] Darline Roman, Results RN 03/09/2018 [...] with right-sided sciatica; Tinea 02/22/2018 Orders Only [facility] Edilson Roberson MD Pain management 02/16/2018 Refill [facility] Edilson Lara MD 02/15/2018 Refill [facility] Edilson Roberson MD Chronic left- sided low back pain with sciatica, sciatica laterality unspecified; Pain management; Spasm of muscle 01/31/2018 Emergency Emergency Medicine Navin Pisano MD Gastroesophageal reflux disease with esophagitis (Primary Dx); Abdominal complaints 01/12/2018 Office Visit [facility] Edilson Roberson MD Excessive and [...] disease with acute exacerbation 12/08/2017 Office Visit [facility] Edilson Lara MD Skin infection (Primary Dx); Spasm of muscle; 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 pylori infection; Gastroesophageal reflux disease with esophagitis 12/03/2017 Refill [facility] Edilson Lara MD 12/01/2017 Refill [facility] Edilson Roberson MD Anxiety; Spasm of muscle 11/28/2017 Refill [facility] Edilson Lara MD Chronic obstructive pulmonary disease with acute exacerbation 11/26/2017 Refill [facility] Edilson Lara MD Spasm of muscle; Anxiety; Chronic obstructive pulmonary disease with acute exacerbation 10/13/2017 Office Visit [facility] Edilson Roberson MD Bilateral low back pain with sciatica, sciatica laterality unspecified, unspecified chronicity (Primary Dx); 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; Anxiety; Spasm of muscle; Chronic left-sided low back pain with sciatica, sciatica laterality unspecified; Pain management; Tinea; Mixed hyperlipidemia; PND (post-nasal drip); Other seasonal allergic rhinitis 09/28/2017 Refill [facility] Edilson Lara MD 09/23/2017 Refill [facility] Edilson Roberson MD Chronic left- sided low back pain with sciatica, sciatica laterality unspecified; Pain management; Anxiety; Spasm of muscle 09/07/2017 Refill [facility] Edilson Roberson MD 09/04/2017 Refill [facility] Edilson Roberson MD Spasm of muscle 09/04/2017 Refill [facility] Edilson Roberson MD Chronic left- sided low back pain with sciatica, sciatica laterality unspecified; Pain management; Anxiety 08/19/2017 Refill [facility] Edilson Roberson MD 08/18/2017 Refill [facility] Edilson Roberson MD Spasm of muscle 08/16/2017 Refill [facility] Edilson Roberson MD Cough 08/11/2017 Refill [facility] Edilson Roberson MD 08/10/2017 Refill [facility] Edilson Roberson MD Anxiety; Chronic left-sided low back pain with sciatica, sciatica laterality unspecified; Pain management 08/03/2017 Refill [facility] Edilson Roberson MD Tinea 07/21/2017 Telephone Social Work Evelyn Lomax LMSW Pre-clinic Chart Review; Head Doffer (DME) 07/01/2017 Refill [facility] Edilson Roberson MD 06/30/2017 Refill [facility] Edilson Roberson MD 06/30/2017 Refill [facility] Edilson Roberson MD Anxiety; Spasm of muscle; Chronic left-sided low back pain with sciatica, sciatica laterality unspecified; Pain management 06/26/2017 Refill [facility] Edilson Roberson MD Spasm of muscle; Anxiety 06/26/2017 Telephone Social Work Evelyn Lomax HAND I CUTTER Pre-clinic Chart Review; Head Doffer (Wheel Chair) 06/09/2017 Telephone [facility] Dyan Le RN Results 06/08/2017 Orders Only [facility] Edilson Roberson MD Mixed hyperlipidemia (Primary Dx) 06/08/2017 Telephone Family Practice Dyan Le RN Results (Patient requesting for provider to review his outside lab work and give him a call) 06/02/2017 Refill [facility] Edilson Roberson MD 06/01/2017 Refill [facility] Edilson Roberson MD Anxiety; Spasm of muscle 05/27/2017 Orders Only Family Practice Edilson Roberson MD Spasm of muscle 05/22/2017 Emergency Emergency Medicine Dysphagia, unspecified - type (Primary Dx) 05/23/2017 after 05/09/2017 Immunizations Name Dates Previously Given Next Due [...] 05/28/2018 Lab Appointment Lab Edilson Roberson MD [id number] [facility] JESSICA [place] [phone] 06/04/2018 Office Visit Family Practice Edilson Roberson MD [place] [address] [facility] J[place]ICA [place] [phone] Goals Patient Goal Type Goal Recent Progress Patient-Stat Author ed? Lifestyle Feel more energetic No Eugenia [place], Machine I Cutter Procedures Procedure Name Priority Date/Time Associated Diagnosis [...] Routine 05/22/2017 Results for this 9:48 PM BROOMCORN SCRAPER procedure are in the results section. UA CHEMISTRIES STAT 05/22/2017 Results for this 9:40 PM BROOMCORN SCRAPER procedure are in the results section. LIPASE STAT 05/22/2017 Results for this 9:40 PM BROOMCORN SCRAPER procedure are in the results section. LIVER PROFILE STAT 05/22/2017 Results for this 9:40 PM BROOMCORN SCRAPER procedure are in the results section. HIV-1/HIV-2 ROUTINE STAT 05/22/2017 Results for this SCREENING 9:40 PM BROOMCORN SCRAPER procedure are in the results section. CBC/DIFF STAT 05/22/2017 Results for this 9:40 PM BROOMCORN SCRAPER procedure are in the results section. after 05/09/2017 Results * URINE DRUG SCREEN (04/30/2018 2:08 PM) Only the most recent of 3 results within the time period is included. Amphetamine Negative NEG BT MAIN-STATION 1 Comment: Calibrated Standard: D-Methamphetamine Positive if urine level >ng=6244 ng/mL Test performed on [id number] using EMIT Immunoassay Barbiturate Negative NEG BT MAIN-STATION 1 Comment: Calibrated Standard: Secobarbital Positive if urine level is >sq=110 ng/mL Test performed on [id number] using EMIT Immunoassay Benzodiazepine Negative NEG BT MAIN-STATION 1 Comment: Calibrated Standard: Lormethazepam Positive if urine level is >kx=219 ng/mL Test performed on [id number] using EMIT Immunoassay Cannabinoid Negative NEG BT MAIN-STATION 1 Comment: Calibrated Standard: 11 nor-delta(9)-THC carboxylic a Positive if urine level >or=50 Test performed on [id number] using EMIT Immunoassay Cocaine Negative NEG BT MAIN-STATION 1 Comment: Calibrated Standard: Benzoylecgonine Positive if urine level >qn=218 Test performed on [id number] using EMIT Immunoassay Opiate, Ur Negative NEG BT MAIN-STATION 1 Comment: Calibrated Standard: Morphine Positive if urine level >qt=708 Test performed on [id number] using EMIT Immunoassay PCP Negative NEG BT MAIN-STATION 1 Comment: Calibrated Standard: Phencyclidine Positive if urine level >or=25 Test performed on [id number] using EMIT Immunoassay Urine Toxicology Screen results are to be used only for Medical purposes. Specimen Urine Performing Organization Address [facility] Phone Number RiffTraxMEENAKSHI MAIN-STATION 1 * HIV-1/HIV-2 ROUTINE SCREENING (03/30/2018 3:00 PM) Only the most recent of 3 results within the time period is included. HIV-1/HIV-2 Negative NEG BT MAIN-STATION 3 Performing Organization Address [facility] Phone Number [employer]iffTrax[employer]ENAKSHI BT MAIN-STATION 3 * GASTRIN, SERUM (03/30/2018 3:00 PM) Gastrin, Serum 25 LABORATORY Reference range: 0 to 115 CORPORATION OF Unit: pg/mL RAMO (note) Siemens GT Solarulite 2000 Immunochemiluminometric assay (ICMA) Specimen Blood Performing Organization Address [facility] Phone Number [employer] OF [address] [place] [address] RAMO 145 * HEMOGLOBIN A1C (03/30/2018 3:00 PM) Hemoglobin A1c 5.4 4.3 - 6.1 % BT DIAGNOSTIC IMMUNOLOGY Est Average Gluc 108.3 mg/dL BT DIAGNOSTIC IMMUNOLOGY Specimen Blood Performing Organization Address [facility] Phone Number Satarii BT DIAGNOSTIC IMMUNOLOGY * B NATRIURETIC PEPT (03/30/2018 3:00 PM) B Natriuretic Pept 25 <101 pg/mL BT MAIN-STATION 1 Specimen Blood Performing Organization Address [facility] Phone Number Satarii MAIN-STATION 1 * ENDOMYSIAL AB IGA (03/30/2018 3:00 PM) Endomysial Ab IgA Negative LABORATORY Reference range: Negative CORPORATION OF RAMO Specimen Blood Performing Organization Address [facility] Phone Number [employer] OF [address] [place] [address] RAMO 145 * TSH (03/30/2018 3:00 PM) TSH 0.94 0.57 - 3.74 uIU/mL BT MAIN-STATION 1 Specimen Blood Performing Organization Address [facility] Phone Number Satarii BT MAIN-STATION 1 * UA CHEMISTRIES (03/30/2018 3:00 PM) Only the most recent of 3 results within the time period is included. Color Yellow BT MAIN-STATION 4 Clarity Clear BT MAIN-STATION 4 Spec [place] 1.010 1.001 - 1.035 BT MAIN-STATION 4 [...] MAIN-STATION 4 Specimen Urine Performing Organization Address [facility] Phone Number MISYS BT MAIN-STATION 4 * ELECTROLYTES (03/30/2018 3:00 PM) Sodium 138 136 - 145 mmol/L BT MAIN-STATION 1 Potassium 3.8 3.5 - 5.1 mmol/L BT MAIN-STATION 1 Chloride 100 98 - 107 mmol/L BT MAIN-STATION 1 CO2 29 21 - 31 mmol/L BT MAIN-STATION 1 Anion Gap 9 BT MAIN-STATION 1 Specimen Blood Performing Organization Address [facility] Phone Number MISYS BT MAIN-STATION 1 * [...] MAIN-STATION 1 Specimen Blood Performing Organization Address [facility]/[employer] Phone Number MISYS BT MAIN-STATION 1 * LIPID PROFILE (03/30/2018 3:00 PM) Cholesterol 125 mg/dL BT MAIN-STATION 1 Comment: REFERENCE RANGE: Desirable: <200 mg/dL Borderline: 200-240 mg/dL High Risk: >240 mg/dL Triglyceride 62 <150 mg/dL BT MAIN-STATION 1 Comment: REFERENCE RANGE: Normal: <150 mg/dL Borderline High: 150-199 mg/dL High: 200-499 mg/dL Very High: >om=797 mg/dL HDL 40 mg/dL BT MAIN-STATION 1 Comment: Increased CHD risk: <40 mg/dL Decreased CHD risk: >60 mg/dL LDL 73 mg/dL BT MAIN-STATION 1 Comment: REFERENCE RANGE: Optimal: <100 mg/dL Near Optimal: 100-129 mg/dL Borderline High: 130-159 mg/dL High: 160-189 mg/dL Very High: >ob=489 mg/dL Specimen Blood Performing Organization Address [facility] Phone Number [facility] * LIPASE (03/30/2018 3:00 PM) Only the most recent of 3 results within the time period is included. Lipase 16 11 - 82 U/L MAIN-STATION 1 Specimen Blood Performing Organization Address [facility] Phone Number [facility] * HEPATITIS PANEL (03/30/2018 3:00 PM) HCV IgG Negative NEG MAIN-STATION 3 HBsAg Negative NEG MAIN-STATION 3 HAV, IgM Negative NEG BT MAIN-STATION 3 HBcAb, IgM Negative NEG MAIN-STATION 3 Specimen Blood Performing Organization Address [facility] Phone Number [facility] * GLUCOSE, FASTING (03/30/2018 3:00 PM) Glucose, Fasting 90 74 - 106 mg/dL MAIN-STATION 1 Specimen Blood Performing Organization Address [facility] Phone Number MISYS MAIN-STATION 1 * CBC [...] MAIN-STATION 2 Specimen Blood Performing Organization Address [facility] Phone Number MISYS BT MAIN-STATION 2 * UREA NITROGEN/CREA (03/30/2018 3:00 PM) Urea Nitrogen 14 7 - 25 mg/dL BT MAIN-STATION 1 Creatinine 0.80 0.7 - 1.3 mg/dL BT MAIN-STATION 1 GFR, Estimated >60 mL/min/1.73 m2 BT MAIN-STATION 1 GFR, Estim, Afr-Am >60 mL/min/1.73 m2 BT MAIN-STATION 1 Specimen Other (Specify in Comments) Performing Organization Address [facility] Phone Number MISYS MAIN-STATION 1 * AMYLASE (03/30/2018 3:00 PM) Amylase 38 29 - 103 U/L BT MAIN-STATION 1 Specimen Blood Performing Organization Address [facility] Phone Number MISYS BT MAIN-STATION 1 * [...] mmol/L BT MAIN-STATION 1 Performing Organization Address [facility] Phone Number MISYS BT MAIN-STATION 1 * [...] MAIN-STATION 2 Specimen Blood Performing Organization Address [facility] Phone Number MISYS BT MAIN-STATION 2 * 12 LEAD EKG (01/30/2018 3:56 PM) 12 LEAD EKG FOR [facility] Test Date:2018-01-30 Pat Name: REINIER HEMPHILL Department: Room: Gender: M Color Mixer: [id number] :[id number] Requested By: Order Number: Daniele vang MD: Carmen Joseph Measurements Intervals [place] Rate: 60 P:-11 VT: 165 QRS: -21 QRSD: 94 T:43 QT: 368 QTc:370 Interpretive Statements SINUS RHYTHM BORDERLINE LEFT AXIS DEVIATION LOW QRS VOLTAGE IN PRECORDIAL LEADS PATTERN CONSISTENT WITH PULMONARY DISEASE INCOMPLETE RIGHT BUNDLE BRANCH BLOCK Electronically Signed On 01-30-18 16:17:20 CDT by Carmen Joseph Performing Organization Address [facility] Phone Number [facility] after 05/09/2017
--- OUTSIDE RECORDS SUMMARY | 2018-12-20 16:24 | XMS REPORT | Clinical Summary ---
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 Active ergocalciferol (VITAMIN Take 1 12 capsule 2 D2) 50,000 unit capsule by 7 capsuleIndications: mouth weekly. Hypovitaminosis D Active amLODIPine (NORVASC) 5 mg Take 1 [...] 8 of muscle THREE TIMES DAILY NEEDED. Active HYDROcodone-acetaminophen Take 1 tablet 120 tablet 0 (NORCO) 10-325 mg by mouth 8 tabletIndications: every 6 hours Chronic left-sided low as needed for back pain with Pain. right-sided sciatica Active albuterol (PROVENTIL) 2.5 Inhale 3 mL [...] MOUTH THREE TIMES DAILY NEEDED FOR COUGH. 11/28/2017 Discontinued albuterol (PROVENTIL) 2.5 Inhale 3 [...] 3 times daily as needed for Cough. 06/30/2017 Discontinued traMADol (ULTRAM) 50 mg TAKE ONE 120 tablet 1 tabletIndications: TABLET BY 7 Chronic left-sided low MOUTH EVERY 6 back pain with sciatica, HOURS sciatica laterality NEEDED FOR unspecified, Pain PAIN. management 12/08/2017 Discontinued Omeprazole 40 mg Take 1 90 capsule 2 capsuleIndications: H. capsule by 7 pylori infection, mouth daily. Gastroesophageal reflux disease with esophagitis 10/13/2017 Discontinued HYDROcodone-acetaminophen Take 1 tablet 120 [...] Units 18 8 1.2 Million UnitsIndications: Infection Active Problems Problem Noted Date Dysphagia 05/22/2017 Knee pain 10/19/2014 Overview: 10/19/14-received request for MRI of the L Knee related to DJD, knee pain 04/07, from Dr. Edilson Berry office on this patient with [employer] HMO; request authorization from [facility]; awaiting authorization. Diane Plasencia [id number] 10/27/14-spoke to Michael Pisano/[facility] Preauthorization Department [phone], gave the auth # [id number] effective 10/24/14-12/22/14 to a facility: [facility] [phone]/fax#: [phone]; spoke to Dc/[facility] and scheduled patient 11/01/2014@17:45 PM; message left x2, at patients voicemail advising of the scheduled appointment. Diane Plasencia [id number] 11/08/14-received a fax from Jayne Kaminski/[facility] [phone]/tel [phone] informing that the patient has cancelled the exam with their location and had exam done somewhere else; called patient x2, left messages on his voice mail, advising to call back for further information; authorization from [employer] was for [facility]; unknown where the patient went. Diane Plasencia [id number] 11/10/14-message left advising to call back; name of the facility for MRI is needed for authorization from [employer]. Diane Plasencia [id number] 11/13/14-per patient he could not remember the name of the facility; he will ask his later. Diane Plasencia [id number] 11/27/14-per patient he couldn't remember the name of the facility; per patients , she is not at home, she will call back to give us the name of the facility. Diane Plasencia [id number] 12/19/14 - Case closed. Patient had MRI done @ own choice location. Documentation noted in record. 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; Tinea; Spasm of muscle 04/30/2018 Office Visit [facility] Edilson Roberson MD Pain management 04/30/2018 Orders Only Family Practice Darline Roman RN Chronic left-sided low back pain with sciatica, sciatica laterality unspecified; Pain management 04/21/2018 Refill Family Practice Darline Roman RN Spasm of muscle 04/09/2018 Refill [facility] Edilson Roberson MD Encounter for vaccination (Primary Dx); GI problem; Belching; Abdominal fullness; Gastroesophageal reflux disease with esophagitis; Aerophagia; Bronchospasm 03/30/2018 Office Visit Family Practice Darline Roman RN Results 03/22/2018 Telephone [facility] Edilson Roberson MD Chronic left-sided low [...] with right-sided sciatica; Tinea 02/22/2018 Office Visit [facility] Edilson Roberson MD Pain management 02/22/2018 Orders Only [facility] Edilson Roberson MD 02/16/2018 Refill [facility] Edilson Roberson MD Chronic left-sided low back pain with sciatica, sciatica laterality unspecified; Pain management; Spasm of muscle 02/15/2018 Refill [facility] Navin Pisano MD Gastroesophageal reflux disease with [...] Gastritis and gastroduodenitis; Anxiety 01/12/2018 Office Visit [facility] Edilson Roberson MD Skin infection (Primary Dx); Spasm of muscle; 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 pylori infection; Gastroesophageal reflux disease with esophagitis 12/08/2017 Office Visit [facility] Edilson Roberson MD 12/03/2017 Refill [facility] Edilson Roberson MD Anxiety; Spasm of muscle 12/01/2017 Refill [facility] Edilson Lara MD Chronic obstructive pulmonary disease with acute exacerbation 11/28/2017 Refill [facility] Edilson Roberson MD Spasm of muscle; Anxiety; Chronic obstructive pulmonary disease with acute exacerbation 11/26/2017 Refill [facility] Edilson Roberson MD Bilateral low back pain with sciatica, sciatica laterality unspecified, unspecified chronicity (Primary Dx); 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; Anxiety; Spasm of muscle; Chronic left-sided low back pain with sciatica, sciatica laterality unspecified; Pain management; Tinea; Mixed hyperlipidemia; PND (post-nasal drip); Other seasonal allergic rhinitis 10/13/2017 Office Visit [facility] Edilson Roberson MD 09/28/2017 Refill [facility] Edilson Roberson MD Chronic left-sided low back pain with sciatica, sciatica laterality unspecified; Pain management; Anxiety; Spasm of muscle 09/23/2017 Refill [facility] Edilson Roberson MD 09/07/2017 Refill [facility] Edilson Roberson MD Spasm of muscle 09/04/2017 Refill [facility] Edilson Roberson MD Chronic left-sided low back pain with sciatica, sciatica laterality unspecified; Pain management; Anxiety 09/04/2017 Refill [facility] Edilson Roberson MD 08/19/2017 Refill [facility] Edilson Roberson MD Spasm of muscle 08/18/2017 Refill [facility] Edilson Roberson MD Cough 08/16/2017 Refill [facility] Edilson Roberson MD 08/11/2017 Refill [facility] Edilson Roberson MD Anxiety; Chronic left-sided low back pain with sciatica, sciatica laterality unspecified; Pain management 08/10/2017 Refill [facility] Edilson Roberson MD Tinea 08/03/2017 Refill [facility] Evelyn Lomax LMSW Pre-clinic Chart Review; Clinical Program Manager (DME) 07/21/2017 Telephone Social Work Edilson Roberson MD 07/01/2017 Refill [facility] Edilson Roberson MD 06/30/2017 Refill [facility] Edilson Roberson MD Anxiety; Spasm of muscle; Chronic left-sided low back pain with sciatica, sciatica laterality unspecified; Pain management 06/30/2017 Refill [facility] after 06/30/2017 Immunizations Name Dates Previously Given Next Due [...] Vital Signs Time Taken Vital Sign Reading 06/04/2018 1:20 PM RED LEAD BURNER Blood Pressure 131/86 06/04/2018 1:20 PM RED LEAD BURNER Pulse 101 06/04/2018 1:20 PM RED LEAD BURNER Temperature 37 C (98.6 F) 06/04/2018 1:20 PM RED LEAD BURNER Respiratory Rate 22 01/31/2018 7:10 AM CDT Oxygen Saturation 100% - Inhaled Oxygen - Concentration 06/04/2018 1:20 PM RED LEAD BURNER Weight 114.6 kg (252 lb 9.6 oz) 06/04/2018 1:20 PM RED LEAD BURNER Height 167.6 cm (5' 6") 06/04/2018 1:20 PM RED LEAD BURNER Body Mass Index 40.77 Plan of Treatment Care Team Description Date Type Specialty Edilson Roberson MD 2050 Office [facility] JESSICA Jiang [phone] doesnt feel well 07/05/2018 Office Visit Family Practice 07/07/2018 Lab Appointment Lab Goals Goal Patient Associated Recent Progress Patient-Stat Author Goal Type Problems ed? Feel more energetic Lifestyle No Eugenia Madera, Project Management Analyst Reduce pain Lifestyle Yes Diane Madera Procedures Comments Procedure Name Priority Date/Time Associated Diagnosis URINE DRUG SCREEN Routine 06/04/2018 Pain management 1:09 PM RED LEAD BURNER URINE DRUG SCREEN Routine 04/30/2018 Pain management [...] 12/08/2017 Pain management 9:11 AM CDT after 06/30/2017 Results * URINE DRUG SCREEN (06/04/2018 1:09 PM RED LEAD BURNER) Only the most recent of 4 results within the time period is included. Amphetamine Negative NEG BT MAIN-STATION Comment: 1 Calibrated Standard: D-Methamphetamine Positive if urine level >fm=2988 ng/mL Test performed on [id number] using EMIT Immunoassay Barbiturate Negative NEG BT MAIN-STATION Comment: 1 Calibrated Standard: Secobarbital Positive if urine level is >tg=696 ng/mL Test performed on [id number] using EMIT Immunoassay Benzodiazepine Negative NEG BT MAIN-STATION Comment: 1 Calibrated Standard: Lormethazepam Positive if urine level is >of=624 ng/mL Test performed on [id number] using EMIT Immunoassay Cannabinoid Negative NEG BT MAIN-STATION Comment: 1 Calibrated Standard: 11 nor-delta(9)-THC carboxylic a Positive if urine level >or=50 Test performed on [id number] using EMIT Immunoassay Cocaine Negative NEG BT MAIN-STATION Comment: 1 Calibrated Standard: Benzoylecgonine Positive if urine level >qd=841 Test performed on [id number] using EMIT Immunoassay Opiate, Ur Negative NEG BT MAIN-STATION Comment: 1 Calibrated Standard: Morphine Positive if urine level >mn=891 Test performed on [id number] using EMIT Immunoassay PCP Negative NEG BT MAIN-STATION Comment: 1 Calibrated Standard: Phencyclidine Positive if urine level >or=25 Test performed on [id number] using EMIT Immunoassay Urine Toxicology Screen results are to be used only for Medical purposes. Specimen Urine Performing Organization Address [facility] Phone Number Hidden Radio BT MAIN-STATION 1 * HIV-1/HIV-2 ROUTINE SCREENING (03/30/2018 3:00 PM CDT) Only the most recent of 2 results within the time period is included. HIV-1/HIV-2 Negative NEG BT MAIN-STATION 3 Performing Organization Address [facility] Phone Number [email or web address] BT MAIN-STATION 3 * GASTRIN, SERUM (03/30/2018 3:00 PM CDT) Gastrin, Serum 25 LABORATORY Reference range: 0 to 115 CORPORATION OF Unit: pg/mL RAMO (note) Siemens Immulite 2000 Immunochemiluminometric assay (ICMA) Specimen Blood Performing Organization Address [facility] Phone Number Hidden Radio LABORATORY CORPORATION OF [address] [id number] RAMO 145 * HEMOGLOBIN A1C (03/30/2018 3:00 PM CDT) Hemoglobin A1c 5.4 4.3 - 6.1 % BT DIAGNOSTIC IMMUNOLOGY Est Average 108.3 mg/dL BT DIAGNOSTIC Gluc IMMUNOLOGY Specimen Blood Performing Organization Address [facility] Phone Number Hidden Radio BT DIAGNOSTIC IMMUNOLOGY * B NATRIURETIC PEPT (03/30/2018 3:00 PM CDT) B Natriuretic 25 <101 pg/mL BT MAIN-STATION Pept 1 Specimen Blood Performing Organization Address [facility] Phone Number Hidden Radio MAIN-STATION 1 * ENDOMYSIAL AB IGA (03/30/2018 3:00 PM CDT) Endomysial Ab Negative LABORATORY IgA Reference range: Negative [facility] OF RAMO Specimen Blood Performing Organization Address City/[facility]/Zipcode Phone Number PRICILLA [facility] OF [address] [place], [place] [phone] RAMO 145 * TSH (03/30/2018 3:00 PM CDT) TSH 0.94 0.57 - 3.74 uIU/mL BT MAIN-STATION 1 Specimen Blood Performing Organization Address [facility] Phone Number PRICILLA BT MAIN-STATION 1 * UA CHEMISTRIES (03/30/2018 3:00 PM CDT) Only the most recent of 2 results within the time period is included. Color Yellow BT MAIN-STATION 4 Clarity Clear BT MAIN-STATION 4 Spec Lemitar 1.010 1.001 - 1.035 BT MAIN-STATION 4 [...] MAIN-STATION 4 Specimen Urine Performing Organization Address [facility] Phone Number LAZARAYS BT MAIN-STATION 4 * ELECTROLYTES (03/30/2018 3:00 PM CDT) Sodium 138 136 - 145 mmol/L BT MAIN-STATION 1 Potassium 3.8 3.5 - 5.1 mmol/L BT MAIN-STATION 1 Chloride 100 98 - 107 mmol/L BT MAIN-STATION 1 CO2 29 21 - 31 mmol/L BT MAIN-STATION 1 Anion Gap 9 BT MAIN-STATION 1 Specimen Blood Performing Organization Address [facility] Phone Number PRICILLA BT MAIN-STATION 1 * LIVER PROFILE (03/30/2018 [...] MAIN-STATION 1 Specimen Blood Performing Organization Address [facility] Phone Number MISYS MAIN-STATION 1 * LIPID PROFILE (03/30/2018 3:00 PM CDT) Cholesterol 125 mg/dL BT MAIN-STATION Comment: 1 REFERENCE RANGE: Desirable: <200 mg/dL Borderline: 200-240 mg/dL High Risk: >240 mg/dL Triglyceride 62 <150 mg/dL BT MAIN-STATION Comment: 1 REFERENCE RANGE: Normal: <150 mg/dL Borderline High: 150-199 mg/dL High: 200-499 mg/dL Very High: >zm=424 mg/dL HDL 40 mg/dL BT MAIN-STATION Comment: 1 Increased CHD risk: <40 mg/dL Decreased CHD risk: >60 mg/dL LDL 73 mg/dL BT MAIN-STATION Comment: 1 REFERENCE RANGE: Optimal: <100 mg/dL Near Optimal: 100-129 mg/dL Borderline High: 130-159 mg/dL High: 160-189 mg/dL Very High: >gu=779 mg/dL Specimen Blood Performing Organization Address [facility] Phone Number MISYS MAIN-STATION 1 * LIPASE (03/30/2018 3:00 PM CDT) Only the most recent of 2 results within the time period is included. Lipase 16 11 - 82 U/L BT MAIN-STATION 1 Specimen Blood Performing Organization Address [facility] Phone Number MISYS MAIN-STATION 1 * HEPATITIS PANEL (03/30/2018 3:00 PM CDT) HCV IgG Negative NEG BT MAIN-STATION 3 HBsAg Negative NEG BT MAIN-STATION 3 HAV, IgM Negative NEG BT MAIN-STATION 3 HBcAb, IgM Negative NEG BT MAIN-STATION 3 Specimen Blood Performing Organization Address [facility] Phone Number MISYS BT MAIN-STATION 3 * GLUCOSE, FASTING (03/30/2018 3:00 PM CDT) Glucose, 90 74 - 106 mg/dL BT MAIN-STATION Fasting 1 Specimen Blood Performing Organization Address City/[facility] Phone Number MISYS BT MAIN-STATION 1 * [...] MAIN-STATION 2 Specimen Blood Performing Organization Address [facility] Phone Number MISYS BT MAIN-STATION 2 * UREA NITROGEN/CREA (03/30/2018 3:00 PM CDT) Urea Nitrogen 14 7 - 25 mg/dL BT MAIN-STATION 1 Creatinine 0.80 0.7 - 1.3 mg/dL BT MAIN-STATION 1 GFR, Estimated >60 mL/min/1.73 m2 BT MAIN-STATION 1 GFR, Estim, >60 mL/min/1.73 m2 BT MAIN-STATION Afr-Am 1 Specimen Other (Specify in Comments) Performing Organization Address City/[facility] Phone Number MISYS MAIN-STATION 1 * AMYLASE (03/30/2018 3:00 PM CDT) Amylase 38 29 - 103 U/L BT MAIN-STATION 1 Specimen Blood Performing Organization Address City/[facility] Phone Number MISYS MAIN-STATION 1 * VBG POC (01/31/2018 5:18 [...] 1 Performing Organization Address City/State/Zipcode Phone Number [email or web address] BT MAIN-STATION 1 * CBC/DIFF (01/30/2018 4:01 [...] Gran 2 Specimen Blood Performing Organization Address City/[facility] Phone Number MISYS BT MAIN-STATION 2 * 12 LEAD EKG (01/30/2018 3:56 PM CDT) [facility] 12 LEAD EKG FOR [facility] Test Date:2018-01-30 Pat Name: REINIER HEMPHILL Department: Room: Gender: M 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: [id number] :1960-0 01-27 Requested By: Order Number: Daniele vang MD: Carmen Joseph Measurements Intervals [place] Rate: 60 P:-11 MI: 165 QRS: -21 QRSD: 94 T:43 QT: 368 QTc:370 Interpretive Statements SINUS RHYTHM BORDERLINE LEFT AXIS DEVIATION LOW QRS VOLTAGE IN PRECORDIAL LEADS PATTERN CONSISTENT WITH PULMONARY DISEASE INCOMPLETE RIGHT BUNDLE BRANCH BLOCK Electronically Signed On 01-30-18 16:17:20 CDT by Carmen Joseph Performing Organization Address City/State/Zipcode Phone Number SMS after 06/30/2017 Insurance Type Payer Benefit Subscriber ID Effective Phone Address Plan / Dates Group [employer] HMO [employer] xxxxxxxxx 2017-P [phone] [address] [address] [place] [address]
--- OUTSIDE RECORDS SUMMARY | 2018-12-20 16:25 | XMS REPORT | Clinical Summary ---
Author Author [facility] Organization [facility] Address Unknown Phone Unavailable Care Team Providers Care Litigation Attorney Name Role Phone Edilson Roberson MD PCP Allergies Comments Active Allergy Reactions Severity Noted Date Hydrocodone-Acetaminophen GI 12/17/2018 Intolerance Tramadol Hives 12/17/2018 Medications End Date Status Medication Sig Dispensed Refills Start Date 01/01/2019 Active sucralfate (CARAFATE) 1 Take 1 tablet 60 tablet 0 gram tablet (1 g total) 9 by mouth 4 (four) times a day for 15 days. Active Problems Not on file Encounters Care Team Description Date Type Specialty Amanda Abdul MD Generalized abdominal pain (Primary Dx); Constipation, unspecified constipation type; Dyspepsia 12/17/2018 Emergency Emergency Medicine 12/17/2018 Travel after 12/19/2017 Social History Date Tobacco Use Types Packs/Day Years Used Never Smoker Smokeless Tobacco: Never Used Alcohol Use Drinks/Week oz/Week Comments Not Currently Sex Assigned at Date Recorded Not on file Industry Job Start Date Occupation Not on file Not on file Not on file Travel End Travel History Travel Start No recent travel history available. Last Filed Vital Signs Time Taken Vital Sign Reading 12/17/2018 7:45 PM CDT Blood Pressure 128/79 12/17/2018 7:45 PM CDT Pulse 68 12/17/2018 4:10 PM CDT Temperature 36.6 C (97.9 F) 12/17/2018 7:45 PM CDT Respiratory Rate 15 12/17/2018 7:45 PM CDT Oxygen Saturation 97% - Inhaled Oxygen - Concentration 12/17/2018 4:10 PM CDT Weight 118 kg (260 lb) 12/17/2018 4:10 PM CDT Height 172.7 cm (5' 8") 12/17/2018 4:10 PM CDT Body Mass Index 39.53 Plan of Treatment Health Maintenance Due Date Last Done Comments COLONOSCOPY SCREENING 2011 SHINGLES VACCINES (#1) 2011 INFLUENZA VACCINE 2019 Procedures Comments Procedure Name Priority Date/Time Associated Diagnosis URINALYSIS SCREEN AND STAT 12/17/2018 MICROSCOPY, WITH REFLEX 6:50 PM CDT TO CULTURE URINE CULTURE STAT 12/17/2018 6:[address] ABDOMEN PELVIS W STAT 12/17/2018 CONTRAST 5:51 PM CDT ECG ED PRELIMINARY Routine 12/17/2018 INTERPRETATION 5:03 PM CDT XR CHEST 1 VW PORTABLE STAT 12/17/2018 4:50 PM CDT LACTIC ACID LEVEL Routine 12/17/2018 4:36 PM CDT ECG 12-LEAD STAT 12/17/2018 4:35 PM CDT CREATINE KINASE, TOTAL STAT 12/17/2018 (CPK) 4:25 PM CDT ESTIMATED GFR STAT 12/17/2018 4:25 PM CDT TROPONIN STAT 12/17/2018 4:25 PM CDT LIPASE LEVEL STAT 12/17/2018 4:25 PM CDT COMPREHENSIVE METABOLIC STAT 12/17/2018 PANEL 4:25 PM CDT PARTIAL THROMBOPLASTIN STAT 12/17/2018 TIME (PTT) 4:25 PM CDT PROTHROMBIN TIME WITH INR STAT 12/17/2018 4:25 PM CDT HC COMPLETE BLD COUNT STAT 12/17/2018 W/AUTO DIFF 4:25 PM CDT after 12/19/2017 Results * Urinalysis screen and microscopy, with reflex to culture (12/17/2018 6:50 PM CDT) Specimen site Clean catch [facility] Color, UA Yellow [facility] Appearance, UA Clear [facility] Specific 1.049 (H) 1.001 - 1.035 [place] gravity, [facility] pH, UA 7.0 5.0 - 8.5 [facility] Protein, UA Negative Negative [facility] Glucose, UA Negative Negative [facility] Ketones, UA Negative Negative [facility] Bilirubin, UA Negative Negative [facility] Blood, UA Negative Negative [facility] Nitrite, UA Negative Negative [facility] Urobilinogen, 4.0 (A) <2.0 [facility] Leukocyte Negative Negative [place] esterase, UA [facility] Epithelial Few Few /HPF [place] cells, [facility] Round Few 0 - 1 /HPF [place] epithelial [facility] cells, [facility] WBC, UA 0-5 0 - 1 /HPF [facility] RBC, UA 0-5 0 - 5 /HPF [facility] Bacteria, UA None seen None seen [facility] Yeast, UA None seen [facility] Yeast with None seen [place] pseudohyphae, [facility] Specimen Urine Performing Organization Address [facility] Phone Number [address] [place] [address] PATHOLOGY AND GENOMIC MEDICINE [address] * Urine culture (12/17/2018 6:50 PM CDT) Urine culture SEE COMMENTComment: [place] Bacteriuria screen negative. [facility] Specimen Urine Performing Organization Address [facility] Phone Number [address] [place] [address] PATHOLOGY AND GENOMIC MEDICINE [address] * CT Abdomen Pelvis W Contrast (12/17/2018 5:51 PM CDT) Specimen Narrative Performed At EXAMINATION:CT ABDOMEN PELVIS W CONTRAST [facility] CLINICAL HISTORY: abdominal painbloating TECHNIQUE: Multiple axial images of the abdomen and pelvis were obtained following intravenous administration of iodinated contrast. Sagittal and coronal computerized reformatted images were also obtained. Approximately 100 cc of Omnipaque [address] scan performed using radiation dose reduction techniques. Technical factors are evaluated and adjusted to ensure appropriate moderation of exposure. Automated dose management technology is applied to adjust the radiation dose to minimize expose whileachieving a diagnostic quality image. COMPARISON:None. FINDINGS: Lung bases: The lung bases are unremarkable. Liver: The liver is normal in attenuation, contour and sizeNo enhancing mass is seen. There is no intrahepatic biliary dilatation.. . Gallbladder: Unremarkable. Pancreas: The pancreas is normal in appearance. No inflammatory process. The pancreatic duct is within normal limits. Spleen: The spleen is normal in appearance.. Kidneys and ureters: The kidneys function symmetrically. There is no enhancing renal lesion. No renal stone is seen. There is no evidence of hydronephrosis.. The ureters are normal in course and caliber. Adrenal glands: Unremarkable. GI tract: The small bowel is normal in course and caliber. The colon is unremarkable. No bowel wall thickening is identified. There is no acute inflammatory process. The appendix is normal. No right lower quadrant inflammation is seen. The stomach is unremarkable. Fluid: None. Pelvis: Bladder: The urinary bladder is unremarkable. Genitalia: Limited evaluation of the prostate gland and seminal vesicle is unremarkable. Fluid: None. Bones: Unremarkable. Retroperitoneum/intraperitoneum: An approximately 1.9 x 1.2 cm lobulated heterogeneous density nodule is seen adjacent to the caudate lobe, series 2 image #28, suggesting of adenopathy. No other retroperitoneal or mesenteric pathologic lymphadenopathy is seen. Vasculature: No evidence of aortic aneurysm or dissection.The mesenteric vessels and visceral vessel are patent. Abdominal wall: A small umbilical hernia with fat is noted. IMPRESSION: No CT evidence of acute appendicitis, gastroenteritis, colitis or small bowel obstruction. Nonspecific right celiac axis adenopathy of unclear etiology or clinical significant. Unremarkable exam otherwise. [id number] Procedure Note Interface, Radiology Results Incoming - 12/17/2018 6:03 PM CDT EXAMINATION: CT ABDOMEN PELVIS W CONTRAST CLINICAL HISTORY: abdominal pain bloating TECHNIQUE: Multiple axial images of the abdomen and pelvis were obtained following intravenous administration of iodinated contrast. Sagittal and coronal computerized reformatted images were also obtained. Approximately 100 cc of Omnipaque [address] scan performed using radiation dose reduction techniques. Technical factors are evaluated and adjusted to ensure appropriate moderation of exposure. Automated dose management technology is applied to adjust the radiation dose to minimize expose while achieving a diagnostic quality image. COMPARISON: None. FINDINGS: Lung bases: The lung bases are unremarkable. Liver: The liver is normal in attenuation, contour and size No enhancing mass is seen. There is no intrahepatic biliary dilatation.. . Gallbladder: Unremarkable. Pancreas: The pancreas is normal in appearance. No inflammatory process. The pancreatic duct is within normal limits. Spleen: The spleen is normal in appearance.. Kidneys and ureters: The kidneys function symmetrically. There is no enhancing renal lesion. No renal stone is seen. There is no evidence of hydronephrosis.. The ureters are normal in course and caliber. Adrenal glands: Unremarkable. GI tract: The small bowel is normal in course and caliber. The colon is unremarkable. No bowel wall thickening is identified. There is no acute inflammatory process. The appendix is normal. No right lower quadrant inflammation is seen. The stomach is unremarkable. Fluid: None. Pelvis: Bladder: The urinary bladder is unremarkable. Genitalia: Limited evaluation of the prostate gland and seminal vesicle is unremarkable. Fluid: None. Bones: Unremarkable. Retroperitoneum/intraperitoneum: An approximately 1.9 x 1.2 cm lobulated heterogeneous density nodule is seen adjacent to the caudate lobe, series 2 image #28, suggesting of adenopathy. No other retroperitoneal or mesenteric pathologic lymphadenopathy is seen. Vasculature: No evidence of aortic aneurysm or dissection. The mesenteric vessels and visceral vessel are patent. Abdominal wall: A small umbilical hernia with fat is noted. IMPRESSION: No CT evidence of acute appendicitis, gastroenteritis, colitis or small bowel obstruction. Nonspecific right celiac axis adenopathy of unclear etiology or clinical significant. Unremarkable exam otherwise. [id number] Performing Organization Address City/State/Zipcode Phone Number [facility] [address] [place] [address] * ECG ED Preliminary Interpretation - Not an Order (12/17/2018 5:03 PM CDT) Narrative Performed At Amanda Abdul MD 12/19/20187:37 PM ECG ED Preliminary Interpretation - Not an Order Performed by: Laura Quiros NEWS VIDEOTAPE EDITORChocoC Authorized by: Amanda Abdul MD ECG reviewed by ED Physician in the absence of a corporate quality engineer: yes Previous ECG: Previous ECG:Unavailable Interpretation: Interpretation: abnormal Rate: ECG rate:67 ECG rate assessment: normal Rhythm: Rhythm: sinus rhythm Ectopy: Ectopy: none QRS: QRS axis:Normal Conduction: Conduction: abnormal Abnormal conduction: LAFB ST segments: ST segments:Normal T waves: T waves: normal * XR Chest 1 Vw Portable (12/17/2018 4:50 PM CDT) Specimen Narrative Performed At EXAMINATION:XR CHEST 1 VW PORTABLE [facility] CLINICAL HISTORY:SOB COMPARISON:None. IMPRESSION: The cardiomediastinal silhouette and central vasculature are within normal limits. Atherosclerotic calcifications in the thoracic aorta which is tortuous. The lungs are clear. Degenerative changes in the spine. [facility]-[id number] Procedure Note Hm Interface, Radiology Results Incoming - 12/17/2018 4:54 PM CDT EXAMINATION: XR CHEST 1 VW PORTABLE CLINICAL HISTORY: SOB COMPARISON: None. IMPRESSION: The cardiomediastinal silhouette and central vasculature are within normal limits. Atherosclerotic calcifications in the thoracic aorta which is tortuous. The lungs are clear. Degenerative changes in the spine. [facility]-[id number] Performing Organization Address [facility]/Zipcode Phone Number [facility] [address] [place] [address] * Lactic acid level (12/17/2018 4:36 PM CDT) Lactic acid 1.0 0.5 - 2.2 mmol/L [facility] Specimen Plasma specimen Performing Organization Address [facility]/Zipcode Phone Number [facility] [place] [id number] [place] [address] [place] [address] PATHOLOGY AND GENOMIC MEDICINE [facility] [address] [place] [address] * ECG 12 lead (12/17/2018 4:35 PM CDT) Ventricular 67 [facility] rate Atrial rate 67 [facility] ME interval 172 [facility] QRSD interval 92 [facility] QT interval 394 [facility] QTC interval 416 [facility] P axis 1 11 [facility] QRS axis 1 -60 [facility] T wave axis 18 [facility] EKG impression Normal sinus rhythm-Low [facility] voltage QRS-Left anterior fascicular block-Cannot rule out Anterior infarct , age undetermined-Abnormal ECG-No previous ECGs available- Specimen Narrative Performed At Performing Organization Address City/[facility] Phone Number [facility] MUSE [address] [place] [address] * Estimated GFR (12/17/2018 4:25 PM CDT) [facility] Estimated GFR 83 mL/min/1.73 m2 [place] Comment: AMARA JAMES [facility] rpretation G1 >=90 Normal or high G2 60-89Mildly decreased [id number] Mildly to moderately decreased [id number] Moderately to severely decreased G4 15-29Severely decreased G5 <15Kidney failure The eGFR was calculated using the Chronic Kidney Disease Epidemiology Collaboration (CKD-EPI) equation. Interpretation is based on recommendations of the National Kidney Foundation-Kidney Disease Outcomes Quality Initiative (NKF-KDOQI) published in 2014. Specimen Plasma specimen Performing Organization Address [facility] Phone Number [facility] [address] [place] [address] [address] [facility] [place] [place] AMARA [address] * Troponin (12/17/2018 4:25 PM CDT) [facility] Troponin <0.006 0.000 - 0.040 ng/mL [place] Comment: AMARA JAMES [facility] changed methodology effective: 11/02/2018 at 10:00 am The new method has a 99th percentile cutoff of 0.040 ng/mL Specimen Plasma specimen Performing Organization Address [facility] Phone Number [facility] [address] [place] [address] PATHOLOGY [address] * Partial thromboplastin time, activated (12/17/2018 4:25 PM CDT) [facility] PTT 32.6 23.0 - 36.0 sec [place] Comment: AMARA JAMES PTT therapeutic range for [facility] unfractionated heparin is 61.0-112.0 seconds which corresponds to Anti-Xa 0.3-0.7 U/ml. Specimen Blood Performing Organization Address [facility]/Zipcode Phone Number [facility] [place] [address] [address] [place] [id number] PATHOLOGY AND GENOMIC MEDICINE [facility] [address] * Prothrombin time with INR (12/17/2018 4:25 PM CDT) Prothrombin 14.1 11.5 - 14.5 sec [place] time [facility] INR 1.1 [place] Comment: [facility] Normalized [facility] Ratio (INR) is a therapeutic monitoring tool for patients who are stable on oral anticoagulant therapy. An INR of 2.0-3.0 is suggested for deep vein thrombosis/pulmonary embolism. Specimen Blood Performing Organization Address [facility]/Zipcode Phone Number [place] [address] [place] [address] PATHOLOGY AND GENOMIC MEDICINE [address] * CBC with platelet and differential (12/17/2018 4:25 PM CDT) WBC 6.46 4.50 - 11.00 k/uL [facility] RBC 4.92 4.40 - 6.00 m/uL [facility] HGB 15.6 14.0 - 18.0 g/dL [facility] HCT 45.2 41.0 - 51.0 % [facility] MCV 91.9 82.0 - 100.0 fL [facility] MCH 31.7 27.0 - 34.0 pg [facility] MCHC 34.5 31.0 - 37.0 g/dL [facility] RDW - SD 40.9 37.0 - 55.0 fL [facility] MPV 10.2 8.8 - 13.2 fL [facility] Platelet count 142 (L) 150 - 400 k/uL [facility] Nucleated RBC 0.00 /100 WBC [facility] Neutrophils 73.7 (H) 39.0 - 69.0 % [facility] Lymphocytes 17.8 (L) 25.0 - 45.0 % [facility] Monocytes 6.8 0.0 - 10.0 % [facility] Eosinophils 1.2 0.0 - 5.0 % [facility] Basophils 0.3 0.0 - 1.0 % [facility] Specimen Blood Performing Organization Address City/[facility] Phone Number [facility] [place] [address] [place] [address] PATHOLOGY AND GENOMIC MEDICINE [facility] [address] * Lipase level (12/17/2018 4:25 PM CDT) Lipase 27 13 - 60 U/L [facility] Specimen Plasma specimen Performing Organization Address City/[facility] Phone Number [facility] DEPARTMENT [address] [place] [address] PATHOLOGY AND GENOMIC MEDICINE [address] * Creatine kinase, total (CPK) (12/17/2018 4:25 PM CDT) Creatine kinase 49 39 - 308 U/L [facility] Specimen Plasma specimen Performing Organization Address [facility] Phone Number [facility] DEPARTMENT OF [address] [place] [address] [place] [address] PATHOLOGY AND GENOMIC MEDICINE [address] * Comprehensive metabolic panel (12/17/2018 4:25 PM CDT) Sodium 140 135 - 148 mEq/L [facility] Potassium 4.1 3.5 - 5.0 mEq/L [facility] Chloride 102 98 - 112 mEq/L [facility] CO2 29 24 - 31 mEq/L [facility] Anion gap 9@ANIO 7 - 15 mEq/L [facility] BUN 13 6 - 20 mg/dL [facility] Creatinine 1.00 0.70 - 1.20 mg/dL [facility] Glucose 94 65 - 99 mg/dL [facility] Calcium 9.0 8.3 - 10.2 mg/dL [facility] Protein 7.3 6.3 - 8.3 g/dL [place] Comment: [facility] 4.6-7.0 g/dL 1 week 4.4-7.6 g/dL 7 months-1year 5.1-7.3 g/dL 1-2 years5.6-7 .5 g/dL >3 years6.0-8 .0 g/dL 18-150 6.3-8.3 g/dL Albumin 3.9 3.5 - 5.0 g/dL [facility] A/G ratio 1.1 0.7 - 3.8 [facility] Alkaline 63 40 - 129 U/L [place] phosphatase [facility] AST 18 10 - 50 U/L [facility] ALT 12 5 - 50 U/L [facility] Total bilirubin 0.7 0.0 - 1.2 mg/dL [facility] Specimen Plasma specimen Performing Organization Address City/State/Zipcode [place] Number [place] [address] [place] [address] PATHOLOGY AND GENOMIC MEDICINE [facility] [address] [place] [address] [facility] after 12/19/2017 Insurance Type Payer Benefit Subscriber ID Effective Phone Address Plan / Dates Group HMO [employer] xxxxxxxxx 2010-P [employer] [facility] Advance Directives Patient has advance care planning documents on file. For more information, lorena arzate contact: Norris Hahn [address] [place] [address]
--- NOTE | 2018-12-20 18:30 | NUR ---
RECEIVED REPORT FROM [employer]PORATE SAFETY COORDINATOR NURSE THAT HE PLACED PT INTO ER 8. LUCIANO SAID THAT HE WILL DRAW THE LABS
[2018-12-20 18:54] LABS: EOSINOPHILS % 0.1 % (0.0-6.0); HEMATOCRIT 45.7 % (38.2-49.6); HEMOGLOBIN 15.6 g/dL (14.0-18.0); LYMPHOCYTES % 1.1 % (18.0-39.1); MEAN CORPUSCULAR HEMOGLOBIN 31.1 pg (28-32); MEAN CORPUSCULAR HGB CONC 34.1 g/dL (31-35); MEAN CORPUSCULAR VOLUME 91.2 fL (81-99); MONOCYTES % 0.4 % (4.4-11.3); PLATELET COUNT 140 x10e3/uL (140-360); RED BLOOD COUNT 5.01 x10e6/uL (4.3-5.7); RED CELL DISTRIBUTION WIDTH 12.1 % (11.7-14.4)
--- NOTE | 2018-12-20 19:00 | NUR ---
PT RESTING QUIETLY IN NO DISTRESS. PLACED HIM ON THE MONITOR. PT SAID HE CAME IN BECAUSE HE STOMACH FEELS EMPTY AND "". HE DENIES THAT IT HURTS, JUST SAID THAT HE CAN'T EAT BECAUSE IT FEELS LIKE THE FOOD IS STICKING IN HIS ABDOMEN. ALSO C/O NAUSEA
[2018-12-20] MEDS ORDERED: MAGNESIUM/ALUMINUM/SIMETHICONE 30 ML UDC PO ONE (19:15)
[2018-12-20] MEDS ORDERED: DICYCLOMINE HCL 20 MG/2 ML VIAL IM ONE (19:15)
[2018-12-20] MEDS ORDERED: SODIUM CHLORIDE 0.9% 1000ML 1,000 ML IV ONE (19:15)
--- NOTE | 2018-12-20 19:30 | NUR ---
REPORT GIVEN TO ELIGIO SANTOYO FOR CONTINUATION OF CARE
[2018-12-20 20:20] LABS: ALANINE AMINOTRANSFERASE 13 IU/L (0-55); ALBUMIN 3.8 g/dL (3.5-5.0); ALBUMIN/GLOBULIN RATIO 1.2 (0.8-2.0); ALKALINE PHOSPHATASE 63 IU/L (40-150); ANION GAP 15.2 mmol/L (8-16); BLOOD UREA NITROGEN 11 mg/dL (7-26); BUN/CREATININE RATIO 10 (6-25); CALCIUM 9.8 mg/dL (8.4-10.2); CARBON DIOXIDE 25 mmol/L (22-29); CHLORIDE 101 mmol/L (98-107); CREATININE, SERUM 1.07 mg/dL (0.72-1.25); EST GLOMERULAR FILTRATION RATE > 60 ML/MIN (60-); GLUCOSE 83 mg/dL (74-118); LIPASE 25 U/L (8-78); POTASSIUM 4.2 mmol/L (3.5-5.1); SODIUM 137 mmol/L (136-145)
[2018-12-20 20:41] VITALS: BP 133/84
== END 2018-12-20 21:15 | disposition home or self-care (01) ==
LOC: ER 15:55
DX: R10.13 Epigastric pain (principal); K30 Functional dyspepsia; K29.00 Acute gastritis without bleeding
CPT/HCPCS: 36415; 80053; 83690; 84484; 85025; 99283; J0500; J7030

== ENCOUNTER 2019-03-24 16:54 | Emergency (ER) | payer OTHER ==
[~2019-03-24] VITALS: Ht 172.7 cm; Wt 108.9 kg
--- OUTSIDE RECORDS SUMMARY | 2019-03-24 16:57 | XMS REPORT | Clinical Summary ---
Author Author [facility] Organization [facility] Address Unknown Phone Unavailable Care Team Providers Care Nursery Worker Name Role Phone Edilson Roberson MD PCP Allergies Comments Active Allergy Reactions Severity Noted Date Hydrocodone-Acetaminophen GI 12/17/2018 Intolerance Tramadol Hives 12/17/2018 Medications End Date Status Medication Sig Dispensed Refills Start Date 01/01/2019 sucralfate (CARAFATE) 1 Take 1 tablet 60 tablet 0 gram tablet (1 g total) 9 by mouth 4 (four) times a day for 15 days. Active Problems Not on file Encounters Care Team Description Date Type Specialty Amanda Abdul MD Generalized abdominal pain (Primary Dx); Constipation, unspecified constipation type; Dyspepsia 12/17/2018 Emergency Emergency Medicine 12/17/2018 Travel after 03/23/2018 Social History Date Tobacco Use Types Packs/Day Years Used Never Smoker Smokeless Tobacco: Never Used Drinks/Week oz/Week Comments Alcohol Use Not Currently Sex Assigned at Date Recorded Not on file Industry Job Start Date Occupation Not on file Not on file Not on file Travel End Travel History Travel Start No recent travel history available. Last Filed Vital Signs Reading Time Taken Comments Vital Sign 128/79 12/17/2018 7:45 PM CDT Blood Pressure 68 12/17/2018 7:45 PM CDT Pulse 36.6 C (97.9 F) 12/17/2018 4:10 PM CDT Temperature 15 12/17/2018 7:45 PM CDT Respiratory Rate 97% 12/17/2018 7:45 PM CDT Oxygen Saturation - - Inhaled Oxygen Concentration 118 kg (260 lb) 12/17/2018 4:10 PM CDT Weight 172.7 cm (5' 8") 12/17/2018 4:10 PM CDT Height 39.53 12/17/2018 4:10 PM CDT Body Mass Index Plan of Treatment Health Maintenance Due Date [...] 12/17/2018 W/AUTO DIFF 4:25 PM CDT after 03/23/2018 Results * Urinalysis screen and microscopy, with reflex to culture (12/17/2018 6:50 PM CDT) Specimen site Clean catch [facility] Color, UA Yellow [facility] Appearance, UA Clear [facility] Specific 1.049 (H) 1.001 - 1.035 [facility] gravity, [facility] pH, UA 7.0 5.0 - 8.5 [facility] Protein, UA Negative Negative [facility] Glucose, UA Negative Negative [facility] Ketones, UA Negative Negative [facility] Bilirubin, UA Negative Negative [facility] Blood, UA Negative Negative [facility] Nitrite, UA Negative Negative [facility] Urobilinogen, 4.0 (A) <2.0 [facility] Leukocyte Negative Negative [facility] esterase, UA [facility] Epithelial Few Few /HPF [facility] cells, [facility] Round Few 0 - 1 /HPF [facility] epithelial [facility] cells, [facility] WBC, UA 0-5 0 - 1 /HPF [facility] RBC, UA 0-5 0 - 5 /HPF [facility] Bacteria, UA None seen None seen [facility] Yeast, UA None seen [facility] Yeast with None seen [facility] pseudohyphae, [facility] Specimen Urine Performing Organization Address [facility] Phone Number [address] [place] [address] PATHOLOGY AND GENOMIC MEDICINE [address] * Urine culture (12/17/2018 6:50 PM CDT) Urine culture SEE COMMENTComment: [facility] Bacteriuria screen negative. [facility] Specimen Urine Performing Organization Address [facility] Phone Number [address] [place] [address] PATHOLOGY AND GENOMIC MEDICINE [address] * CT Abdomen Pelvis W Contrast [...] etiology or clinical significant. Unremarkable exam otherwise. [id number] Procedure Note Interface, Radiology Results Incoming - [...] etiology or clinical significant. Unremarkable exam otherwise. [id number] Performing Organization Address City/State/Zipcode Phone Number [facility] [address] [place] [address] * ECG ED Preliminary Interpretation - Not an Order (12/17/2018 5:03 PM CDT) Narrative Performed At Amanda Abdul MD 12/19/20187:37 PM ECG ED Preliminary Interpretation - Not an Order Performed by: Laura Quiros NP-C Authorized by: Amanda Abdul MD ECG reviewed by ED Physician in the absence of a record systems analyst: yes Previous ECG: Previous ECG:Unavailable Interpretation: Interpretation: [...] are clear. Degenerative changes in the spine. [facility]-[id number] Procedure Note Hm Interface, Radiology Results Incoming - 12/17/2018 4:54 PM CDT EXAMINATION: XR CHEST 1 VW PORTABLE CLINICAL HISTORY: SOB COMPARISON: None. IMPRESSION: The cardiomediastinal silhouette and central vasculature are within normal limits. Atherosclerotic calcifications in the thoracic aorta which is tortuous. The lungs are clear. Degenerative changes in the spine. [facility]-[id number] Performing Organization Address [facility]/Zipcode Phone Number [facility] [address] [place] [address] * Lactic acid level (12/17/2018 4:36 PM CDT) Lactic acid 1.0 0.5 - 2.2 mmol/L [facility] Specimen Plasma specimen Performing Organization Address [facility]/Zipcode Phone Number [facility] [place] [id number] [place] [address] [place] [address] PATHOLOGY AND GENOMIC MEDICINE [facility] [address] * ECG 12 lead (12/17/2018 4:35 PM CDT) Ventricular 67 [facility] rate Atrial rate 67 [facility] [place] interval 172 [facility] QRSD interval 92 [...] Specimen Narrative Performed At Performing Organization Address City/[facility] Phone Number [facility] MUSE [address] [place] [address] * Estimated GFR (12/17/2018 4:25 PM CDT) [facility] Estimated GFR 83 mL/min/1.73 m2 [facility] Comment: AMARA JAMES RUST rpretation G1 >=90 Normal or high G2 60-89Mildly decreased T6m90-29 Mildly to moderately decreased S3c17-75 Moderately to severely decreased G4 15-29Severely decreased G5 <15Kidney failure The eGFR was calculated using the Chronic Kidney Disease Epidemiology Collaboration (CKD-EPI) equation. Interpretation is based on recommendations of the National Kidney Foundation-Kidney Disease Outcomes Quality Initiative (NKF-KDOQI) published in 2014. Specimen Plasma specimen Performing Organization Address [facility] Phone Number [facility] DEPARTMENT OF [address] [place] [address] [place] [address] PATHOLOGY AND [facility] MEDICINE [facility] [address] * Troponin (12/17/2018 4:25 PM CDT) [facility] Troponin <0.006 0.000 - 0.040 ng/mL [facility] Comment: AMARA JAMES [facility] changed methodology effective: 11/02/2018 at 10:00 am The new method has a 99th percentile cutoff of 0.040 ng/mL Specimen Plasma specimen Performing Organization Address [facility] Phone Number [facility] [address] [place] [address] PATHOLOGY AND [facility] * Partial thromboplastin time, activated (12/17/2018 4:25 PM CDT) [facility] PTT 32.6 23.0 - 36.0 sec [facility] Comment: AMARA JAMES PTT therapeutic range for [facility] unfractionated heparin is 61.0-112.0 seconds which corresponds to Anti-Xa 0.3-0.7 U/ml. Specimen Blood Performing Organization Address [facility] Phone Number [facility] [place] [address] [place] [address] PATHOLOGY AND GENOMIC MEDICINE [facility] [address] [address] * Prothrombin time with INR (12/17/2018 4:25 PM CDT) Prothrombin 14.1 11.5 - 14.5 sec [facility] time [facility] INR 1.1 [facility] Comment: [facility] International Normalized [facility] Ratio (INR) is a therapeutic monitoring tool for patients who are stable on oral anticoagulant therapy. An INR of 2.0-3.0 is suggested for deep vein thrombosis/pulmonary embolism. Specimen Blood Performing Organization Address City/[facility]/Zipcode Phone Number [place] [address] [place] [address] PATHOLOGY AND GENOMIC MEDICINE [address] * CBC with platelet and differential (12/17/2018 4:25 PM CDT) WBC 6.46 4.50 - 11.00 k/uL [facility] RBC 4.92 4.40 - 6.00 m/uL [facility] HGB 15.6 14.0 - 18.0 g/dL [facility] HCT 45.2 41.0 - 51.0 % [facility] MCV 91.9 82.0 - 100.0 fL [facility] MCH 31.7 27.0 - 34.0 pg [facility] MCHC 34.5 31.0 - 37.0 g/dL [facility] RDW - SD 40.9 37.0 - 55.0 fL [facility] MPV 10.2 8.8 - 13.2 fL [facility] Platelet count 142 (L) 150 - 400 k/uL [facility] Nucleated RBC 0.00 /100 WBC [facility] Neutrophils 73.7 (H) 39.0 - 69.0 % [facility] Lymphocytes 17.8 (L) 25.0 - 45.0 % [facility] Monocytes 6.8 0.0 - 10.0 % [facility] Eosinophils 1.2 0.0 - 5.0 % [facility] Basophils 0.3 0.0 - 1.0 % [facility] Specimen Blood Performing Organization Address City/[facility] Phone Number [facility] [place] [address] [place] [address] PATHOLOGY AND GENOMIC MEDICINE [facility] [id number] [place] [address] * Lipase level (12/17/2018 4:25 PM CDT) Lipase 27 13 - 60 U/L [facility] Specimen Plasma specimen Performing Organization Address City/[facility] Phone Number [facility] DEPARTMENT [address] [place] [address] PATHOLOGY AND GENOMIC MEDICINE [address] * Creatine kinase, total (CPK) (12/17/2018 4:25 PM CDT) Creatine kinase 49 39 - 308 U/L [facility] Specimen Plasma specimen Performing Organization Address City/[facility] Phone Number [facility] DEPARTMENT [address] [place] [address] PATHOLOGY AND GENOMIC MEDICINE [address] * Comprehensive metabolic panel (12/17/2018 4:25 PM CDT) Sodium 140 135 - 148 mEq/L [facility] Potassium 4.1 3.5 - 5.0 mEq/L [facility] Chloride 102 98 - 112 mEq/L [facility] CO2 29 24 - 31 mEq/L [facility] Anion gap 9@ANIO 7 - 15 mEq/L [facility] BUN 13 6 - 20 mg/dL [facility] Creatinine 1.00 0.70 - 1.20 mg/dL [facility] Glucose 94 65 - 99 mg/dL [facility] Calcium 9.0 8.3 - 10.2 mg/dL [facility] Protein 7.3 6.3 - 8.3 g/dL [facility] Comment: [facility] 4.6-7.0 g/dL 1 week 4.4-7.6 g/dL 7 months-1year 5.1-7.3 g/dL 1-2 years5.6-7 .5 g/dL >3 years6.0-8 .0 g/dL 18-150 6.3-8.3 g/dL Albumin 3.9 3.5 - 5.0 g/dL [facility] A/G ratio 1.1 0.7 - 3.8 [facility] Alkaline 63 40 - 129 U/L [facility] phosphatase [facility] AST 18 10 - 50 U/L [facility] ALT 12 5 - 50 U/L [facility] Total bilirubin 0.7 0.0 - 1.2 mg/dL [facility] Specimen Plasma specimen Performing Organization Address City/State/Zipcode [place] Number [place] [address] [place] [address] PATHOLOGY AND GENOMIC MEDICINE [facility] [address] [place] [address] [facility] after 03/23/2018 Insurance Type Payer Benefit Subscriber ID Effective Phone Address Plan / Dates Group HMO [employer] xxxxxxxxx [id number] [employer] resent [facility] Advance Directives For more information, please contact: [phone] Patient Electronic Pagination System Operator Explanation Type Date Recorded Advance Directives, 12/17/2018 4:11 PM Living Will and Medical Power of Specialist Field Engineer
--- OUTSIDE RECORDS SUMMARY | 2019-03-24 17:00 | XMS REPORT | Continuity of Care Document ---
Author Author [employer] Address Unknown Phone Unavailable Care Team Providers Care Manager Of Health Name Role Phone [employer] Unavailable Unavailable Problems Problem Status Onset Date Classification Date Reported Comments Source Dysphagia Active 05/22/2017 12/28/2018 [facility] Knee pain Active 10/19/2014 12/28/2018 [facility] Skin tags Active 12/06/2007 12/28/2018 [facility] Somatization disorder Active 07/31/2007 12/28/2018 [facility] BORDERLINE DIABETES MELLITUS Active 04/11/2006 12/28/2018 [facility] Chronic low back pain Active 04/10/2006 12/28/2018 [facility] Depression Active 12/28/2018 [facility] GERD Active 12/28/2018 [facility] Dyslipidemia Active 12/28/2018 [facility] WARREN Active 12/28/2018 [facility] Headache Active 12/28/2018 [facility] Obesity Active 12/28/2018 [facility] Abdominal complaints Active 12/28/2018 [facility] Chronic left-sided low back pain with sciatica, sciatica laterality unspecified Active 12/28/2018 [facility] Pain management Active 12/28/2018 [facility] 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 Active 12/28/2018 [facility] Bilateral leg pain Active 12/28/2018 [facility] Spasm of muscle Active 12/28/2018 [facility] Tinea Active 12/28/2018 [facility] Other viral warts Active 12/28/2018 [facility] Skin infection Active 12/28/2018 [facility] H. pylori infection Active 12/28/2018 [facility] Gastroesophageal reflux disease with esophagitis Active 12/28/2018 [facility] Infection Active 12/28/2018 [facility] Tooth infection Active 12/28/2018 [facility] Bilateral low back pain with sciatica, sciatica laterality unspecified, unspecified chronicity Active 12/28/2018 [facility] Chronic pain of both knees Active 12/28/2018 [facility] Pain of both hip joints Active 12/28/2018 [facility] Hypovitaminosis D Active 12/28/2018 [facility] Dermatitis Active 12/28/2018 [facility] Bronchospasm Active 12/28/2018 [facility] Chronic obstructive pulmonary disease with acute exacerbation Active 12/28/2018 [facility] Anxiety Active 12/28/2018 [facility] Mixed hyperlipidemia Active 12/28/2018 [facility] PND Active 12/28/2018 [facility] Other seasonal allergic rhinitis Active 12/28/2018 [facility] Cough Active 12/28/2018 [facility] Encounter for vaccination Active 12/28/2018 [facility] Belching Active 12/28/2018 [facility] Abdominal fullness Active 12/28/2018 [facility] Aerophagia Active 12/28/2018 [facility] Dietary counseling Active 12/28/2018 [facility] Exercise counseling Active 12/28/2018 [facility] Excessive and redundant skin and subcutaneous tissue Active 12/28/2018 [facility] Shortness of breath Active 12/28/2018 [facility] Gastritis and gastroduodenitis Active 12/28/2018 [facility] Pain in both knees, unspecified chronicity Active 12/28/2018 [facility] Medications Medication Details Route Status Patient Instructions Ordering Provider Order Date Source HYDROcodone-acetaminophen (NORCO) 10-325 mg tablet Take 1 tablet by mouth every 6 hours as needed for Pain. Oral Active 11/15/2018 [facility] traMADol (ULTRAM) 50 mg tablet Take 1 tablet by mouth every 6 hours as needed for Pain. Oral Active 11/15/2018 [facility] carisoprodol 350 mg tablet TAKE 1 TABLET BY MOUTH THREE TIMES DAILY NEEDED. Active 11/15/2018 [facility] ketorolac (TORADOL) injection 60 mg Intramuscular Inactive 10/15/2018 [facility] HYDROcodone-acetaminophen (NORCO) 10-325 mg tablet Take 1 tablet by mouth every 6 hours as needed for Pain. Oral No Longer Active 10/15/2018 [facility] traMADol (ULTRAM) 50 mg tablet Take 1 tablet by mouth every 6 hours as needed for Pain. Oral No Longer Active 10/15/2018 [facility] carisoprodol 350 mg tablet TAKE 1 TABLET BY MOUTH THREE TIMES DAILY NEEDED. No Longer Active 10/15/2018 [facility] nystatin (MYCOSTATIN) topical cream APPLY TOPICALLY TO AFFECTED AREA TWICE DAILY. Active 10/15/2018 [facility] traMADol (ULTRAM) 50 mg tablet Take 1 tablet by mouth every 6 hours as needed for Pain. Oral Inactive 10/01/2018 [facility] HYDROcodone-acetaminophen (NORCO) 10-325 mg tablet Take 1 tablet by mouth every 6 hours as needed for Pain. Oral Active 09/28/2018 [facility] HYDROcodone-acetaminophen (NORCO) 10-325 mg tablet Take 1 tablet by mouth every 6 hours as needed for Pain. Oral No Longer Active 09/28/2018 [facility] triamcinolone acetonide (KENALOG-40) injection 40 mg Intramuscular Inactive 08/27/2018 [facility] HYDROcodone-acetaminophen (NORCO) 10-325 mg tablet Take 1 tablet by mouth every 6 hours as needed for Pain. Oral No Longer Active 08/27/2018 [facility] traMADol (ULTRAM) 50 mg tablet Take 1 tablet by mouth every 6 hours as needed for Pain. Oral Active 08/27/2018 [facility] carisoprodol 350 mg tablet TAKE 1 TABLET BY MOUTH THREE TIMES DAILY NEEDED. No Longer Active 08/27/2018 [facility] mupirocin (BACTROBAN) 2 % ointment Apply to affected area 3 times daily for 7 days. Topical No Longer Active 08/27/2018 [facility] nystatin (MYCOSTATIN) topical cream APPLY TOPICALLY TO AFFECTED AREA TWICE DAILY. No Longer Active 08/27/2018 [facility] imiquimod (ALDARA) 5 % topical cream packet Apply 1 Packet to affected area 3 times weekly. Topical Active 08/27/2018 [facility] HYDROcodone-acetaminophen (NORCO) 10-325 mg tablet Take 1 tablet by mouth every 6 hours as needed for Pain. Oral No Longer Active 08/27/2018 [facility] mupirocin (BACTROBAN) 2 % ointment Apply to affected area 3 times daily for 7 days. Topical No Longer Active 08/27/2018 [facility] imiquimod (ALDARA) 5 % topical cream packet Apply 1 Packet to affected area 3 times weekly. Topical Active 08/27/2018 [facility] HYDROcodone-acetaminophen (NORCO) 10-325 mg tablet Take 1 tablet by mouth every 6 hours as needed for Pain. Oral No Longer Active 07/26/2018 [facility] traMADol (ULTRAM) 50 mg tablet Take 1 tablet by mouth every 6 hours as needed for Pain. Oral No Longer Active 07/26/2018 [facility] carisoprodol 350 mg tablet TAKE 1 TABLET BY MOUTH THREE TIMES DAILY NEEDED. No Longer Active 07/26/2018 [facility] Omeprazole 40 mg capsule Take 1 capsule by mouth daily. Oral Active 07/26/2018 [facility] amoxicillin (AMOXIL) 500 mg capsule Take 1 capsule by mouth 3 times daily for 14 days. Oral No Longer Active 07/26/2018 [facility] HYDROcodone-acetaminophen (NORCO) 10-325 mg tablet Take 1 tablet by mouth every 6 hours as needed for Pain. Oral No Longer Active 07/26/2018 [facility] triamcinolone acetonide (KENALOG-40) injection 40 mg Intramuscular Inactive 07/05/2018 [facility] triamcinolone acetonide (KENALOG-40) injection 40 mg Intramuscular Inactive 07/05/2018 [facility] HYDROcodone-acetaminophen (NORCO) 10-325 mg tablet Take 1 tablet by mouth every 6 hours as needed for Pain. Oral No Longer Active 07/05/2018 [facility] ergocalciferol (VITAMIN D2) 50,000 unit capsule Take 1 capsule by mouth weekly. Oral Active 07/05/2018 [facility] calcipotriene (DOVONEX) 0.005 % topical cream Apply to affected area 2 times daily. Topical Active 07/05/2018 [facility] traMADol (ULTRAM) 50 mg tablet Take 1 tablet by mouth every 6 hours as needed for Pain. Oral No Longer Active 07/05/2018 [facility] carisoprodol 350 mg tablet TAKE 1 TABLET BY MOUTH THREE TIMES DAILY NEEDED. No Longer Active 07/05/2018 [facility] HYDROcodone-acetaminophen (NORCO) 10-325 mg tablet Take 1 tablet by mouth every 6 hours as needed for Pain. Oral No Longer Active 07/05/2018 [facility] calcipotriene (DOVONEX) 0.005 % topical cream Apply to affected area 2 times daily. Topical Active 07/05/2018 [facility] traMADol (ULTRAM) 50 mg tablet TAKE 1 TABLET BY MOUTH EVERY 6 HOURS NEEDED No Longer Active 07/01/2018 [facility] penicillin g benzathine (BICILLIN L-A) injection 1.2 Million Units Intramuscular Inactive 06/04/2018 [facility] penicillin g benzathine (BICILLIN L-A) injection 1.2 Million Units Intramuscular Inactive 06/04/2018 [facility] traMADol (ULTRAM) 50 mg tablet Take 1 tablet by mouth every 6 hours as needed for Pain. Oral No Longer Active 06/04/2018 [facility] carisoprodol 350 mg tablet TAKE 1 TABLET BY MOUTH THREE TIMES DAILY NEEDED. No Longer Active 06/04/2018 [facility] HYDROcodone-acetaminophen (NORCO) 10-325 mg tablet Take 1 tablet by mouth every 6 hours as needed for Pain. Oral No Longer Active 06/04/2018 [facility] albuterol (PROVENTIL) 2.5 mg /3 mL (0.083 %) nebulizer solution Inhale 3 mL by mouth every 6 hours as needed for Wheezing. Inhalation Active 06/04/2018 [facility] hydrOXYzine (ATARAX) 10 mg tablet Take 1 tablet by mouth every 8 hours as needed for Itching. Oral Active 06/04/2018 [facility] Omeprazole 40 mg capsule Take 1 capsule by mouth daily. Oral No Longer Active 06/04/2018 [facility] atorvastatin (LIPITOR) 40 mg tablet Take 1 tablet by mouth at bedtime nightly. Oral Active 06/04/2018 [facility] cetirizine (ZYRTEC) 10 mg tablet Take 1 tablet by mouth daily. Oral Active 06/04/2018 [facility] fluticasone (FLONASE) 50 mcg/actuation nasal spray Use 2 Sprays in each nostril daily. Active 06/04/2018 [facility] benzonatate (TESSALON) 100 mg capsule TAKE 2 CAPSULES BY MOUTH THREE TIMES DAILY NEEDED FOR COUGH. Active 06/04/2018 [facility] HYDROcodone-acetaminophen (NORCO) 10-325 mg tablet Take 1 tablet by mouth every 6 hours as needed for Pain. Oral No Longer Active 06/04/2018 [facility] atorvastatin (LIPITOR) 40 mg tablet Take 1 tablet by mouth at bedtime nightly. Oral Active 06/04/2018 [facility] cetirizine (ZYRTEC) 10 mg tablet Take 1 tablet by mouth daily. Oral Active 06/04/2018 [facility] traMADol (ULTRAM) 50 mg tablet TAKE 1 TABLET BY MOUTH EVERY 6 HOURS NEEDED No Longer Active 06/01/2018 [facility] carisoprodol 350 mg tablet TAKE 1 TABLET BY MOUTH THREE TIMES DAILY NEEDED No Longer Active 05/28/2018 [facility] Hydrocodone 10 Mg-Acetaminophen 325 Mg Tablet [place] 10 Mg-325 Mg Tablet Take 1 tablet by mouth every 6 hours as needed for Pain. Oral Active 04/30/2018 [facility] Nystatin 100,000 Unit/Gram Topical Cream APPLY TOPICALLY TO AFFECTED AREA TWICE DAILY. Inactive 04/30/2018 [facility] Carisoprodol 350 Mg Tablet TAKE 1 TABLET BY MOUTH THREE TIMES DAILY NEEDED. Active 04/30/2018 [facility] HYDROcodone-acetaminophen (NORCO) 10-325 mg tablet Take 1 tablet by mouth every 6 hours as needed for Pain. Oral No Longer Active 04/30/2018 [facility] nystatin (MYCOSTATIN) topical cream APPLY TOPICALLY TO AFFECTED AREA TWICE DAILY. Inactive 04/30/2018 [facility] carisoprodol 350 mg tablet TAKE 1 TABLET BY MOUTH THREE TIMES DAILY NEEDED. No Longer Active 04/30/2018 [facility] HYDROcodone-acetaminophen (NORCO) 10-325 mg tablet Take 1 tablet by mouth every 6 hours as needed for Pain. Oral No Longer Active 04/30/2018 [facility] Tramadol 50 Mg Tablet TAKE 1 TABLET BY MOUTH EVERY 6 HOURS NEEDED. Active 04/21/2018 [facility] traMADol (ULTRAM) 50 mg tablet TAKE 1 TABLET BY MOUTH EVERY 6 HOURS NEEDED. No Longer Active 04/21/2018 [facility] Carisoprodol 350 Mg Tablet TAKE 1 TABLET BY MOUTH THREE TIMES DAILY NEEDED. Inactive 04/12/2018 [facility] carisoprodol 350 mg tablet TAKE 1 TABLET BY MOUTH THREE TIMES DAILY NEEDED. Inactive 04/12/2018 [facility] Albuterol Sulfate 2.5 Mg/3 Ml (0.083 %) Solution For Nebulization Inhalation Inactive 03/30/2018 [facility] albuterol (PROVENTIL) 2.5 mg /3 mL (0.083 %) nebulized solution 2.5 mg Inhalation Inactive 03/30/2018 [facility] Metoclopramide 10 Mg Tablet Reglan 10 Mg Tablet Take 1 tablet by mouth 3 times daily (before meals). Oral Active 03/30/2018 [facility] Albuterol Sulfate 2.5 Mg/3 Ml (0.083 %) Solution For Nebulization Inhale 3 mL by mouth every 6 hours as needed for Wheezing. Inhalation Active 03/30/2018 [facility] metoclopramide (REGLAN) 10 mg tablet Take 1 tablet by mouth 3 times daily (before meals). Oral Active 03/30/2018 [facility] albuterol (PROVENTIL) 2.5 mg /3 mL (0.083 %) nebulizer solution Inhale 3 mL by mouth every 6 hours as needed for Wheezing. Inhalation No Longer Active 03/30/2018 [facility] metoclopramide (REGLAN) 10 mg tablet Take 1 tablet by mouth 3 times daily (before meals). Oral Active 03/30/2018 [facility] Ketorolac 30 Mg/Ml (1 Ml) Injection Solution Intramuscular Inactive 03/09/2018 [facility] Triamcinolone Acetonide 40 Mg/Ml Suspension For Injection Intramuscular Inactive 03/09/2018 [facility] Ketorolac 30 Mg/Ml (1 Ml) Injection Solution Intramuscular Inactive 03/09/2018 [facility] Triamcinolone Acetonide 40 Mg/Ml Suspension For Injection Intramuscular Inactive 03/09/2018 [facility] ketorolac (TORADOL) injection 60 mg Intramuscular Inactive 03/09/2018 [facility] triamcinolone acetonide (KENALOG-40) injection 40 mg Intramuscular Inactive 03/09/2018 [facility] triamcinolone acetonide (KENALOG-40) injection 40 mg Intramuscular Inactive 03/09/2018 [facility] Tramadol 50 Mg Tablet TAKE 1 TABLET BY MOUTH EVERY 6 HOURS NEEDED. No Longer Active 03/09/2018 [facility] Carisoprodol 350 Mg Tablet TAKE 1 TABLET BY MOUTH THREE TIMES DAILY NEEDED. No Longer Active 03/09/2018 [facility] Hydrocodone 10 Mg-Acetaminophen 325 Mg Tablet [place] 10 Mg-325 Mg Tablet Take 1 tablet by mouth every 6 hours as needed for Pain. Oral No Longer Active 03/09/2018 [facility] traMADol (ULTRAM) 50 mg tablet TAKE 1 TABLET BY MOUTH EVERY 6 HOURS NEEDED. No Longer Active 03/09/2018 [facility] carisoprodol 350 mg tablet TAKE 1 TABLET BY MOUTH THREE TIMES DAILY NEEDED. No Longer Active 03/09/2018 [facility] HYDROcodone-acetaminophen (NORCO) 10-325 mg tablet Take 1 tablet by mouth every 6 hours as needed for Pain. Oral No Longer Active 03/09/2018 [facility] HYDROcodone-acetaminophen (NORCO) 10-325 mg tablet Take 1 tablet by mouth every 6 hours as needed for Pain. Oral No Longer Active 03/09/2018 [facility] Tramadol 50 Mg Tablet TAKE 1 TABLET BY MOUTH EVERY 6 HOURS NEEDED. No Longer Active 02/22/2018 [facility] Carisoprodol 350 Mg Tablet TAKE 1 TABLET BY MOUTH THREE TIMES DAILY NEEDED. No Longer Active 02/22/2018 [facility] Hydrocodone 10 Mg-Acetaminophen 325 Mg Tablet [place] 10 Mg-325 Mg Tablet Take 1 tablet by mouth every 6 hours as needed for Pain. Oral No Longer Active 02/22/2018 [facility] Nystatin 100,000 Unit/Gram Topical Cream APPLY TOPICALLY TO AFFECTED AREA TWICE DAILY. No Longer Active 02/22/2018 [facility] Clarithromycin 500 Mg Tablet Take 1 tablet by mouth 2 times daily for 14 days. Oral No Longer Active 02/22/2018 [facility] traMADol (ULTRAM) 50 mg tablet TAKE 1 TABLET BY MOUTH EVERY 6 HOURS NEEDED. No Longer Active 02/22/2018 [facility] carisoprodol 350 mg tablet TAKE 1 TABLET BY MOUTH THREE TIMES DAILY NEEDED. No Longer Active 02/22/2018 [facility] HYDROcodone-acetaminophen (NORCO) 10-325 mg tablet Take 1 tablet by mouth every 6 hours as needed for Pain. Oral No Longer Active 02/22/2018 [facility] nystatin (MYCOSTATIN) topical cream APPLY TOPICALLY TO AFFECTED AREA TWICE DAILY. No Longer Active 02/22/2018 [facility] clarithromycin (BIAXIN) 500 mg tablet Take 1 tablet by mouth 2 times daily for 14 days. Oral No Longer Active 02/22/2018 [facility] HYDROcodone-acetaminophen (NORCO) 10-325 mg tablet Take 1 tablet by mouth every 6 hours as needed for Pain. Oral No Longer Active 02/22/2018 [facility] clarithromycin (BIAXIN) 500 mg tablet Take 1 tablet by mouth 2 times daily for 14 days. Oral No Longer Active 02/22/2018 [facility] Tramadol 50 Mg Tablet TAKE 1 TABLET BY MOUTH EVERY 6 HOURS NEEDED No Longer Active 02/16/2018 [facility] Carisoprodol 350 Mg Tablet TAKE 1 TABLET BY MOUTH THREE TIMES DAILY NEEDED No Longer Active 02/16/2018 [facility] traMADol (ULTRAM) 50 mg tablet TAKE 1 TABLET BY MOUTH EVERY 6 HOURS NEEDED No Longer Active 02/16/2018 [facility] carisoprodol 350 mg tablet TAKE 1 TABLET BY MOUTH THREE TIMES DAILY NEEDED No Longer Active 02/16/2018 [facility] Triamcinolone Acetonide 40 Mg/Ml Suspension For Injection Intramuscular Inactive 01/12/2018 [facility] Triamcinolone Acetonide 40 Mg/Ml Suspension For Injection Intramuscular Inactive 01/12/2018 [facility] triamcinolone acetonide (KENALOG-40) injection 40 mg Intramuscular Inactive 01/12/2018 [facility] triamcinolone acetonide (KENALOG-40) injection 40 mg Intramuscular Inactive 01/12/2018 [facility] Carisoprodol 350 Mg Tablet TAKE 1 TABLET BY MOUTH THREE TIMES DAILY NEEDED. No Longer Active 01/12/2018 [facility] Hydrocodone 10 Mg-Acetaminophen 325 Mg Tablet [place] 10 Mg-325 Mg Tablet Take 1 tablet by mouth every 6 hours as needed for Pain. Oral No Longer Active 01/12/2018 [facility] Tramadol 50 Mg Tablet TAKE 1 TABLET BY MOUTH EVERY 6 HOURS NEEDED FOR PAIN. No Longer Active 01/12/2018 [facility] Albuterol Sulfate 2.5 Mg/3 Ml (0.083 %) Solution For Nebulization INHALE 3 ML(ONE VAIL) VIA NEBULIZER EVERY 4 HOURS NEEDED FOR WHEEZING OR SHORTNESS OF BREATH. Active 01/12/2018 [facility] Amoxicillin 500 Mg Capsule Take 1 capsule by mouth 3 times daily for 14 days. Oral No Longer Active 01/12/2018 [facility] Hydroxyzine Hcl 10 Mg Tablet Take 1 tablet by mouth every 8 hours as needed for Itching. Oral Active 01/12/2018 [facility] carisoprodol 350 mg tablet TAKE 1 TABLET BY MOUTH THREE TIMES DAILY NEEDED. No Longer Active 01/12/2018 [facility] HYDROcodone-acetaminophen (NORCO) 10-325 mg tablet Take 1 tablet by mouth every 6 hours as needed for Pain. Oral No Longer Active 01/12/2018 [facility] traMADol (ULTRAM) 50 mg tablet TAKE 1 TABLET BY MOUTH EVERY 6 HOURS NEEDED FOR PAIN. No Longer Active 01/12/2018 [facility] albuterol (PROVENTIL) 2.5 mg /3 mL (0.083 %) nebulizer solution INHALE 3 ML(ONE VAIL) VIA NEBULIZER EVERY 4 HOURS NEEDED FOR WHEEZING OR SHORTNESS OF BREATH. No Longer Active 01/12/2018 [facility] amoxicillin (AMOXIL) 500 mg capsule Take 1 capsule by mouth 3 times daily for 14 days. Oral No Longer Active 01/12/2018 [facility] hydrOXYzine (ATARAX) 10 mg tablet Take 1 tablet by mouth every 8 hours as needed for Itching. Oral No Longer Active 01/12/2018 [facility] HYDROcodone-acetaminophen (NORCO) 10-325 mg tablet Take 1 tablet by mouth every 6 hours as needed for Pain. Oral No Longer Active 01/12/2018 [facility] Ketorolac 30 Mg/Ml (1 Ml) Injection Solution Intramuscular Inactive 12/08/2017 [facility] Triamcinolone Acetonide 40 Mg/Ml Suspension For Injection Intramuscular Inactive 12/08/2017 [facility] Ketorolac 30 Mg/Ml (1 Ml) Injection Solution Intramuscular Inactive 12/08/2017 [facility] Triamcinolone Acetonide 40 Mg/Ml Suspension For Injection Intramuscular Inactive 12/08/2017 [facility] ketorolac (TORADOL) injection 60 mg Intramuscular Inactive 12/08/2017 [facility] triamcinolone acetonide (KENALOG-40) injection 40 mg Intramuscular Inactive 12/08/2017 [facility] triamcinolone acetonide (KENALOG-40) injection 40 mg Intramuscular Inactive 12/08/2017 [facility] Carisoprodol 350 Mg Tablet TAKE 1 TABLET BY MOUTH THREE TIMES DAILY NEEDED. No Longer Active 12/08/2017 [facility] Hydrocodone 10 Mg-Acetaminophen 325 Mg Tablet [place] 10 Mg-325 Mg Tablet Take 1 tablet by mouth every 6 hours as needed for Pain. Oral No Longer Active 12/08/2017 [facility] Tramadol 50 Mg Tablet TAKE 1 TABLET BY MOUTH EVERY 6 HOURS NEEDED FOR PAIN. No Longer Active 12/08/2017 [facility] Nystatin 100,000 Unit/Gram Topical Cream APPLY TOPICALLY TO AFFECTED AREA TWICE DAILY. No Longer Active 12/08/2017 [facility] Mupirocin 2 % Topical Ointment Apply to affected area 3 times daily for 7 days. Topical No Longer Active 12/08/2017 [facility] Omeprazole 40 Mg Capsule,Delayed Release Take 1 capsule by mouth daily. Oral Active 12/08/2017 [facility] carisoprodol 350 mg tablet TAKE 1 TABLET BY MOUTH THREE TIMES DAILY NEEDED. No Longer Active 12/08/2017 [facility] HYDROcodone-acetaminophen (NORCO) 10-325 mg tablet Take 1 tablet by mouth every 6 hours as needed for Pain. Oral No Longer Active 12/08/2017 [facility] traMADol (ULTRAM) 50 mg tablet TAKE 1 TABLET BY MOUTH EVERY 6 HOURS NEEDED FOR PAIN. No Longer Active 12/08/2017 [facility] nystatin (MYCOSTATIN) topical cream APPLY TOPICALLY TO AFFECTED AREA TWICE DAILY. No Longer Active 12/08/2017 [facility] mupirocin (BACTROBAN) 2 % ointment Apply to affected area 3 times daily for 7 days. Topical No Longer Active 12/08/2017 [facility] Omeprazole 40 mg capsule Take 1 capsule by mouth daily. Oral No Longer Active 12/08/2017 [facility] HYDROcodone-acetaminophen (NORCO) 10-325 mg tablet Take 1 tablet by mouth every 6 hours as needed for Pain. Oral No Longer Active 12/08/2017 [facility] Diazepam 10 Mg Tablet TAKE 1 TABLET BY MOUTH EVERY 12 HOURS NEEDED FOR ANXIETY No Longer Active 12/02/2017 [facility] [facility] Carisoprodol 350 Mg Tablet TAKE 1 TABLET BY MOUTH THREE TIMES DAILY NEEDED No Longer Active 12/02/2017 [facility] diazePAM (VALIUM) 10 mg tablet TAKE 1 TABLET BY MOUTH EVERY 12 HOURS NEEDED FOR ANXIETY No Longer Active 12/02/2017 [facility] carisoprodol 350 mg tablet TAKE 1 TABLET BY MOUTH THREE TIMES DAILY NEEDED No Longer Active 12/02/2017 [facility] Albuterol Sulfate 2.5 Mg/3 Ml (0.083 %) Solution For Nebulization INHALE 3 ML(ONE VAIL) VIA NEBULIZER EVERY 4 HOURS NEEDED FOR WHEEZING OR SHORTNESS OF BREATH No Longer Active 11/30/2017 [facility] albuterol (PROVENTIL) 2.5 mg /3 mL (0.083 %) nebulizer solution INHALE 3 ML(ONE VAIL) VIA NEBULIZER EVERY 4 HOURS NEEDED FOR WHEEZING OR SHORTNESS OF BREATH No Longer Active 11/30/2017 [facility] Ketorolac 30 Mg/Ml (1 Ml) Injection Solution Intramuscular Inactive 10/13/2017 [facility] Triamcinolone Acetonide 40 Mg/Ml Suspension For Injection Intramuscular Inactive 10/13/2017 [facility] Ketorolac 30 Mg/Ml (1 Ml) Injection Solution Intramuscular Inactive 10/13/2017 [facility] Triamcinolone Acetonide 40 Mg/Ml Suspension For Injection Intramuscular Inactive 10/13/2017 [facility] ketorolac (TORADOL) injection 60 mg Intramuscular Inactive 10/13/2017 [facility] triamcinolone acetonide (KENALOG-40) injection 80 mg Intramuscular Inactive 10/13/2017 [facility] triamcinolone acetonide (KENALOG-40) injection 80 mg Intramuscular Inactive 10/13/2017 [facility] Hydrocodone 10 Mg-Acetaminophen 325 Mg Tablet [place] 10 Mg-325 Mg Tablet Take 1 tablet by mouth every 6 hours as needed for Pain. Oral No Longer Active 10/13/2017 [facility] Diazepam 10 Mg Tablet TAKE 1 TABLET BY MOUTH EVERY 12 HOURS NEEDED FOR ANXIETY. No Longer Active 10/13/2017 [facility] Carisoprodol 350 Mg Tablet TAKE 1 TABLET BY MOUTH THREE TIMES DAILY NEEDED. No Longer Active 10/13/2017 [facility] Tramadol 50 Mg Tablet TAKE 1 TABLET BY MOUTH EVERY 6 HOURS NEEDED FOR PAIN. No Longer Active 10/13/2017 [facility] Nystatin 100,000 Unit/Gram Topical Cream APPLY TOPICALLY TO AFFECTED AREA TWICE DAILY. No Longer Active 10/13/2017 [facility] Atorvastatin 40 Mg Tablet Lipitor 40 Mg Tablet Take 1 tablet by mouth at bedtime nightly. Oral Active 10/13/2017 [facility] Cetirizine 10 Mg Tablet Zyrtec 10 Mg Tablet Take 1 tablet by mouth daily. Oral Active 10/13/2017 [facility] Fluticasone 50 McG/Actuation Nasal [place],Suspension Flonase 50 McG/Actuation Nasal [place],Suspension Use 2 Sprays in each nostril daily. Active 10/13/2017 [facility] Fluticasone 50 McG/Actuation Nasal [place],Suspension Flonase 50 McG/Actuation Nasal [place],Suspension Use 2 Sprays in each nostril daily. Active 10/13/2017 [facility] HYDROcodone-acetaminophen (NORCO) 10-325 mg tablet Take 1 tablet by mouth every 6 hours as needed for Pain. Oral No Longer Active 10/13/2017 [facility] diazePAM (VALIUM) 10 mg tablet TAKE 1 TABLET BY MOUTH EVERY 12 HOURS NEEDED FOR ANXIETY. No Longer Active 10/13/2017 [facility] carisoprodol 350 mg tablet TAKE 1 TABLET BY MOUTH THREE TIMES DAILY NEEDED. No Longer Active 10/13/2017 [facility] traMADol (ULTRAM) 50 mg tablet TAKE 1 TABLET BY MOUTH EVERY 6 HOURS NEEDED FOR PAIN. No Longer Active 10/13/2017 [facility] nystatin (MYCOSTATIN) topical cream APPLY TOPICALLY TO AFFECTED AREA TWICE DAILY. No Longer Active 10/13/2017 [facility] atorvastatin (LIPITOR) 40 mg tablet Take 1 tablet by mouth at bedtime nightly. Oral No Longer Active 10/13/2017 [facility] cetirizine (ZYRTEC) 10 mg tablet Take 1 tablet by mouth daily. Oral No Longer Active 10/13/2017 [facility] fluticasone (FLONASE) 50 mcg/actuation nasal spray Use 2 Sprays in each nostril daily. No Longer Active 10/13/2017 [facility] atorvastatin (LIPITOR) 40 mg tablet Take 1 tablet by mouth at bedtime nightly. Oral No Longer Active 10/13/2017 [facility] cetirizine (ZYRTEC) 10 mg tablet Take 1 tablet by mouth daily. Oral No Longer Active 10/13/2017 [facility] Tramadol 50 Mg Tablet TAKE 1 TABLET BY MOUTH EVERY 6 HOURS NEEDED FOR PAIN No Longer Active 09/24/2017 [facility] Diazepam 10 Mg Tablet TAKE 1 TABLET BY MOUTH EVERY 12 HOURS NEEDED FOR ANXIETY No Longer Active 09/24/2017 [facility] Carisoprodol 350 Mg Tablet TAKE 1 TABLET BY MOUTH THREE TIMES DAILY NEEDED No Longer Active 09/24/2017 [facility] traMADol (ULTRAM) 50 mg tablet TAKE 1 TABLET BY MOUTH EVERY 6 HOURS NEEDED FOR PAIN No Longer Active 09/24/2017 [facility] diazePAM (VALIUM) 10 mg tablet TAKE 1 TABLET BY MOUTH EVERY 12 HOURS NEEDED FOR ANXIETY No Longer Active 09/24/2017 [facility] carisoprodol 350 mg tablet TAKE 1 TABLET BY MOUTH THREE TIMES DAILY NEEDED No Longer Active 09/24/2017 [facility] Tramadol 50 Mg Tablet TAKE 1 TABLET BY MOUTH EVERY 6 HOURS NEEDED FOR PAIN No Longer Active 09/04/2017 [facility] Diazepam 10 Mg Tablet TAKE 1 TABLET BY MOUTH EVERY 12 HOURS NEEDED FOR ANXIETY No Longer Active 09/04/2017 [facility] Carisoprodol 350 Mg Tablet TAKE 1 TABLET BY MOUTH THREE TIMES DAILY NEEDED. No Longer Active 09/04/2017 [facility] traMADol (ULTRAM) 50 mg tablet TAKE 1 TABLET BY MOUTH EVERY 6 HOURS NEEDED FOR PAIN No Longer Active 09/04/2017 [facility] diazePAM (VALIUM) 10 mg tablet TAKE 1 TABLET BY MOUTH EVERY 12 HOURS NEEDED FOR ANXIETY No Longer Active 09/04/2017 [facility] carisoprodol 350 mg tablet TAKE 1 TABLET BY MOUTH THREE TIMES DAILY NEEDED. No Longer Active 09/04/2017 [facility] Carisoprodol 350 Mg Tablet TAKE 1 TABLET BY MOUTH THREE TIMES DAILY NEEDED. No Longer Active 08/18/2017 [facility] carisoprodol 350 mg tablet TAKE 1 TABLET BY MOUTH THREE TIMES DAILY NEEDED. No Longer Active 08/18/2017 [facility] Benzonatate 100 Mg Capsule TAKE 2 CAPSULES BY MOUTH THREE TIMES DAILY NEEDED FOR COUGH Active 08/17/2017 [facility] benzonatate (TESSALON) 100 mg capsule TAKE 2 CAPSULES BY MOUTH THREE TIMES DAILY NEEDED FOR COUGH No Longer Active 08/17/2017 [facility] Diazepam 10 Mg Tablet TAKE 1 TABLET BY MOUTH EVERY 12 HOURS NEEDED FOR ANXIETY No Longer Active 08/11/2017 [facility] Tramadol 50 Mg Tablet TAKE 1 TABLET BY MOUTH EVERY 6 HOURS NEEDED FOR PAIN No Longer Active 08/11/2017 [facility] diazePAM (VALIUM) 10 mg tablet TAKE 1 TABLET BY MOUTH EVERY 12 HOURS NEEDED FOR ANXIETY No Longer Active 08/11/2017 [facility] traMADol (ULTRAM) 50 mg tablet TAKE 1 TABLET BY MOUTH EVERY 6 HOURS NEEDED FOR PAIN No Longer Active 08/11/2017 [facility] Nystatin 100,000 Unit/Gram Topical Cream APPLY TOPICALLY TO AFFECTED AREA TWICE DAILY No Longer Active 08/04/2017 [facility] nystatin (MYCOSTATIN) topical cream APPLY TOPICALLY TO AFFECTED AREA TWICE DAILY No Longer Active 08/04/2017 [facility] Carisoprodol 350 Mg Tablet TAKE 1 TABLET BY MOUTH THREE TIMES DAILY NEEDED No Longer Active 06/30/2017 [facility] Diazepam 10 Mg Tablet TAKE 1 TABLET BY MOUTH EVERY 12 HOURS NEEDED FOR ANXIETY No Longer Active 06/30/2017 [facility] Tramadol 50 Mg Tablet TAKE 1 TABLET BY MOUTH EVERY 6 HOURS NEEDED FOR PAIN No Longer Active 06/30/2017 [facility] carisoprodol 350 mg tablet TAKE 1 TABLET BY MOUTH THREE TIMES DAILY NEEDED No Longer Active 06/30/2017 [facility] diazePAM (VALIUM) 10 mg tablet TAKE 1 TABLET BY MOUTH EVERY 12 HOURS NEEDED FOR ANXIETY No Longer Active 06/30/2017 [facility] traMADol (ULTRAM) 50 mg tablet TAKE 1 TABLET BY MOUTH EVERY 6 HOURS NEEDED FOR PAIN No Longer Active 06/30/2017 [facility] Atorvastatin 40 Mg Tablet Lipitor 40 Mg Tablet Take 1 tablet by mouth at bedtime nightly. Oral No Longer Active 06/08/2017 [facility] atorvastatin (LIPITOR) 40 mg tablet Take 1 tablet by mouth at bedtime nightly. Oral No Longer Active 06/08/2017 [facility] Diazepam 10 Mg Tablet TAKE 1 TABLET BY MOUTH EVERY 12 HOURS NEEDED FOR ANXIETY No Longer Active 06/02/2017 [facility] Carisoprodol 350 Mg Tablet TAKE 1 TABLET BY MOUTH THREE TIMES DAILY NEEDED No Longer Active 06/02/2017 [facility] Ketorolac 30 Mg/Ml (1 Ml) Injection Solution Intramuscular Inactive 05/07/2017 [facility] Ketorolac 60 Mg/2 Ml Intramuscular Solution Intramuscular Inactive 05/07/2017 [facility] triamcinolone acetonide (KENALOG-40) injection 40 mg Intramuscular Inactive 05/07/2017 [facility] Cetirizine 10 Mg Tablet Zyrtec 10 Mg Tablet Take 1 tablet by mouth daily. Oral No Longer Active 05/07/2017 [facility] Fluticasone 50 McG/Actuation Nasal [place],Suspension Flonase 50 McG/Actuation Nasal [place],Suspension Use 2 Sprays in each nostril daily. No Longer Active 05/07/2017 [facility] Fluticasone 50 McG/Actuation Nasal [place],Suspension Flonase 50 McG/Actuation Nasal [place],Suspension Use 2 Sprays in each nostril daily. No Longer Active 05/07/2017 [facility] cetirizine (ZYRTEC) 10 mg tablet Take 1 tablet by mouth daily. Oral No Longer Active 05/07/2017 [facility] fluticasone (FLONASE) 50 mcg/actuation nasal spray Use 2 Sprays in each nostril daily. No Longer Active 05/07/2017 [facility] triamcinolone acetonide (KENALOG-40) injection 80 mg Intramuscular Inactive 04/10/2017 [facility] Ketorolac 60 Mg/2 Ml Intramuscular Solution Intramuscular Inactive 04/10/2017 [facility] Ceftriaxone 1 Gram Solution For Injection Intramuscular Inactive 04/10/2017 [facility] Lidocaine 10 Mg/Ml (1 %) Injection Solution Injection Inactive 04/10/2017 [facility] Azithromycin 500 Mg Tablet Zithromax 500 Mg Tablet Take 1 tablet by mouth daily for 10 days. Oral No Longer Active 04/10/2017 [facility] Diazepam 10 Mg Tablet TAKE ONE TABLET BY MOUTH EVERY 12 HOURS NEEDED FOR ANXIETY. No Longer Active 04/10/2017 [facility] Carisoprodol 350 Mg Tablet Take 1 tablet by mouth 3 times daily as needed for Other (prn back spasm). Oral No Longer Active 04/10/2017 [facility] Hydrocodone 10 Mg-Acetaminophen 325 Mg Tablet [place] 10 Mg-325 Mg Tablet Take 1 tablet by mouth every 6 hours as needed for Pain. Oral No Longer Active 04/10/2017 [facility] HYDROcodone-acetaminophen (NORCO) 10-325 mg tablet Take 1 tablet by mouth every 6 hours as needed for Pain. Oral No Longer Active 04/10/2017 [facility] Ergocalciferol (Vitamin D2) 50,000 Unit Capsule Vitamin D2 50,000 Unit Capsule Take 1 capsule by mouth weekly. Oral Active 02/16/2017 [facility] Amlodipine 5 Mg Tablet Norvasc 5 Mg Tablet Take 1 tablet by mouth daily. Oral Active 02/16/2017 [facility] Diazepam 10 Mg Tablet TAKE ONE TABLET BY MOUTH EVERY 12 HOURS NEEDED FOR ANXIETY. No Longer Active 02/16/2017 [facility] Carisoprodol 350 Mg Tablet Take 1 tablet by mouth 3 times daily as needed for Other (prn back spasm). Oral No Longer Active 02/16/2017 [facility] Hydrocodone 10 Mg-Acetaminophen 325 Mg Tablet [place] 10 Mg-325 Mg Tablet Take 1 tablet by mouth every 6 hours as needed for Pain. Oral No Longer Active 02/16/2017 [facility] ergocalciferol (VITAMIN D2) 50,000 unit capsule Take 1 capsule by mouth weekly. Oral No Longer Active 02/16/2017 [facility] amLODIPine (NORVASC) 5 mg tablet Take 1 tablet by mouth daily. Oral Active 02/16/2017 [facility] amLODIPine (NORVASC) 5 mg tablet Take 1 tablet by mouth daily. Oral Active 02/16/2017 [facility] Ibuprofen 800 Mg Tablet Take 1 tablet by mouth every 8 hours as needed for Pain. Oral Active 01/23/2017 [facility] Tramadol 50 Mg Tablet TAKE ONE TABLET BY MOUTH EVERY 6 HOURS NEEDED FOR PAIN. No Longer Active 01/23/2017 [facility] Omeprazole 40 Mg Capsule,Delayed Release Take 1 capsule by mouth daily. Oral No Longer Active 01/23/2017 [facility] Zolpidem 10 Mg Tablet Take 1 tablet by mouth nightly at bedtime as needed for Insomnia. Oral Active 01/23/2017 [facility] Ketoconazole 2 % Topical Cream Apply to affected area daily. Topical Active 01/23/2017 [facility] ibuprofen (MOTRIN) 800 mg tablet Take 1 tablet by mouth every 8 hours as needed for Pain. Oral Active 01/23/2017 [facility] Omeprazole 40 mg capsule Take 1 capsule by mouth daily. Oral No Longer Active 01/23/2017 [facility] zolpidem (AMBIEN) 10 mg Tab Take 1 tablet by mouth nightly at bedtime as needed for Insomnia. Oral Active 01/23/2017 [facility] amoxicillin (AMOXIL) 500 mg capsule Take 1 capsule by mouth 3 times daily for 10 days. Oral No Longer Active 01/23/2017 [facility] ketoconazole (NIZORAL) 2 % topical cream Apply to affected area daily. Topical Active 01/23/2017 [facility] traMADol (ULTRAM) 50 mg tablet TAKE ONE TABLET BY MOUTH EVERY 6 HOURS NEEDED FOR PAIN. No Longer Active 01/23/2017 [facility] Fluconazole 200 Mg Tablet Diflucan 200 Mg Tablet Take 1 tablet by mouth daily. Oral Active 12/19/2016 [facility] Hydrocortisone Acetate 25 Mg Rectal Suppository Anusol-Hc 25 Mg Rectal Suppository Insert 1 Suppository rectally 2 times daily. Rectal Active 12/19/2016 [facility] Nystatin 100,000 Unit/Gram Topical Powder Nystop 100,000 Unit/Gram Topical Powder Apply to affected area 4 times daily. Topical Active 12/19/2016 [facility] hydrocortisone-pramoxine (EPIFOAM) 1-1 % topical foam Apply 1 Applicator to affected area 4 times daily. Topical Active 12/19/2016 [facility] fluconazole (DIFLUCAN) 200 mg tablet Take 1 tablet by mouth daily. Oral Active 12/19/2016 [facility] hydrocortisone (ANUSOL-HC) 25 mg rectal suppository Insert 1 Suppository rectally 2 times daily. Rectal Active 12/19/2016 [facility] nystatin (NYSTOP) 100,000 unit/gram topical powder Apply to affected area 4 times daily. Topical Active 12/19/2016 [facility] hydrocortisone-pramoxine (EPIFOAM) 1-1 % topical foam Apply 1 Applicator to affected area 4 times daily. Topical Active 12/19/2016 [facility] fluconazole (DIFLUCAN) 200 mg tablet Take 1 tablet by mouth daily. Oral Active 12/19/2016 [facility] hydrocortisone (ANUSOL-HC) 25 mg rectal suppository Insert 1 Suppository rectally 2 times daily. Rectal Active 12/19/2016 [facility] nystatin (NYSTOP) 100,000 unit/gram topical powder Apply to affected area 4 times daily. Topical Active 12/19/2016 [facility] Nystatin 100,000 Unit/Gram Topical Cream Apply to affected area 2 times daily. Topical No Longer Active 11/18/2016 [facility] Benzonatate 100 Mg Capsule Tessalon Perles 100 Mg Capsule Take 2 capsules by mouth 3 times daily as needed for Cough. Oral No Longer Active 11/18/2016 [facility] nystatin (MYCOSTATIN) topical cream Apply to affected area 2 times daily. Topical No Longer Active 11/18/2016 [facility] benzonatate (TESSALON PERLES) 100 mg capsule Take 2 capsules by mouth 3 times daily as needed for Cough. Oral No Longer Active 11/18/2016 [facility] Movantik 12.5 Mg Tablet Take 12.5 mg by mouth daily. Oral Active 07/01/2016 [facility] Movantik 12.5 Mg Tablet Take 12.5 mg by mouth daily. Oral Active 07/01/2016 [facility] naloxegol (MOVANTIK) 12.5 mg Tab Take 12.5 mg by mouth daily. Oral Active 07/01/2016 [facility] naloxegol (MOVANTIK) 12.5 mg Tab Take 12.5 mg by mouth daily. Oral Active 07/01/2016 [facility] Albuterol Sulfate 2.5 Mg/3 Ml (0.083 %) Solution For Nebulization Inhale 3 mL by mouth every 4 hours as needed for Wheezing or Shortness of Breath. Inhalation No Longer Active 06/19/2016 [facility] albuterol (PROVENTIL) 2.5 mg /3 mL (0.083 %) nebulizer solution Inhale 3 mL by mouth every 4 hours as needed for Wheezing or Shortness of Breath. Inhalation No Longer Active 06/19/2016 [facility] Nebulizer And Compressor 1 Device by [facility]Non-Drug; Combo Route) route 4 times daily. Active 05/02/2016 [facility] Nebulizer & Compressor For Neb [place] 1 Device by [facility].(Non- Drug; Combo Route) route 4 times daily. Active 05/02/2016 [facility] Cetirizine 10 Mg Tablet Zyrtec 10 Mg Tablet Take 1 tablet by mouth daily. Oral Active 04/14/2016 [facility] Fluticasone 50 McG/Actuation Nasal [place],Suspension Flonase 50 McG/Actuation Nasal [place],Suspension Use 2 Sprays in each nostril daily. No Longer Active 04/14/2016 [facility] budesonide-formoterol (SYMBICORT HFA) 160-4.5 mcg/actuation inhaler Inhale 2 Puffs by mouth 2 times daily. Inhalation Active 04/14/2016 [facility] cetirizine (ZYRTEC) 10 mg tablet Take 1 tablet by mouth daily. Oral Active 04/14/2016 [facility] budesonide-formoterol (SYMBICORT HFA) 160-4.5 mcg/actuation inhaler Inhale 2 Puffs by mouth 2 times daily. Inhalation Active 04/14/2016 [facility] cetirizine (ZYRTEC) 10 mg tablet Take 1 tablet by mouth daily. Oral Active 04/14/2016 [facility] Nebulizer And Compressor 1 Device by [facility].(Non-Drug; Combo Route) route 4 times daily COPD NEEDING NEBULIZER FOR HOME TREATMENTS OF ALBUTEROL SOLUTIONWITH TUBING AND MASK. Active 02/25/2016 [facility] Nebulizer & Compressor For Neb [place] 1 Device by [facility].(Non- Drug; Combo Route) route 4 times daily COPD NEEDING NEBULIZER FOR HOME TREATMENTS OF ALBUTEROL SOLUTIONWITH TUBING AND MASK. Active 02/25/2016 [facility] Albuterol Sulfate 2.5 Mg/3 Ml (0.083 %) Solution For Nebulization Inhale 3 mL by mouth every 6 hours as needed for Wheezing. Inhalation Active 12/28/2015 [facility] Nebulizer And Compressor by [facility].(Non-Drug; Combo Route) route Use as directed. Active 12/28/2015 [facility].(Non-Drug; Combo Route) route Nebulizer mask. Active 12/28/2015 [facility] albuterol (PROVENTIL) 2.5 mg /3 mL (0.083 %) nebulizer solution Inhale 3 mL by mouth every 6 hours as needed for Wheezing. Inhalation Active 12/28/2015 [facility] Nebulizer & Compressor For Neb [place] by [facility].(Non-Drug; Combo Route) route Use as directed. Active 12/28/2015 [facility].(Non-Drug; Combo Route) route Nebulizer mask. Active 12/28/2015 [facility] Lidocaine 5 % Topical Patch Lidoderm 5 % Topical Patch Apply 1 Patch to skin as directed daily Leave patch(es) on for up to 12 hours, then 12 hours off.. Transdermal Active 12/07/2015 [facility] Sumatriptan 100 Mg Tablet Imitrex 100 Mg Tablet Take 1 tablet by mouth at onset of headache. Repeat after 2 hours if needed. Maximum 200mg/24 hours.. Active 12/07/2015 [facility] Lidocaine 5 % Topical Patch Lidoderm 5 % Topical Patch Apply 1 Patch to skin as directed daily Leave patch(es) on for up to 12 hours, then 12 hours off.. Transdermal Active 12/07/2015 [facility] lidocaine (LIDODERM) 5 % patch Apply 1 Patch to skin as directed daily Leave patch(es) on for up to 12 hours, then 12 hours off.. Transdermal Active 12/07/2015 [facility] SUMAtriptan (IMITREX) 100 mg tablet Take 1 tablet by mouth at onset of headache. Repeat after 2 hours if needed. Maximum 200mg/24 hours.. Active 12/07/2015 [facility] lidocaine (LIDODERM) 5 % patch Apply 1 Patch to skin as directed daily Leave patch(es) on for up to 12 hours, then 12 hours off.. Transdermal Active 12/07/2015 [facility] SUMAtriptan (IMITREX) 100 mg tablet Take 1 tablet by mouth at onset of headache. Repeat after 2 hours if needed. Maximum 200mg/24 hours.. Active 12/07/2015 [facility] Cialis 5 Mg Tablet Take 1 tablet by mouth as needed for Erectile Dysfunction. Oral Active 08/03/2015 [facility] Omeprazole 40 Mg Capsule,Delayed Release Take 1 capsule by mouth daily. Oral Active 08/03/2015 [facility] Ergocalciferol (Vitamin D2) 50,000 Unit Capsule Vitamin D2 50,000 Unit Capsule Take 1 capsule by mouth weekly. Oral Active 08/03/2015 [facility] Tadalafil (CIALIS) 5 mg tablet Take 1 tablet by mouth as needed for Erectile Dysfunction. Oral Active 08/03/2015 [facility] Omeprazole 40 mg capsule Take 1 capsule by mouth daily. Oral Active 08/03/2015 [facility] ergocalciferol (VITAMIN D2) 50,000 unit capsule Take 1 capsule by mouth weekly. Oral Active 08/03/2015 [facility] Tadalafil (CIALIS) 5 mg tablet Take 1 tablet by mouth as needed for Erectile Dysfunction. Oral Active 08/03/2015 [facility] Zolpidem 10 Mg Tablet Take 1 tablet by mouth at bedtime. Oral Active 01/13/2012 [facility] zolpidem (AMBIEN) 10 mg Tab Take 1 tablet by mouth at bedtime. Oral Active 01/13/2012 [facility] Allergies, Adverse Reactions, Alerts Substance Category Reaction Severity Reaction type Status Date Reported Comments Source Hydrocodone "FEELS WEIRD" Intermediate Allergy to Substance Active 03/13/2018 [facility] Acetaminophen "FEELS WEIRD" Intermediate Allergy to Substance Active 03/13/2018 [facility] Tramadol "FEELS WEIRD" Intermediate Allergy to Substance Active 03/13/2018 [facility] Immunizations Immunization Date Given Site Status Last Updated Comments Source Influenza, Vaccine<FLUCELVAX>(Multi-Dose) 03/30/2018 Not Given Deferred: Patient Refused [facility] Influenza, Vaccine<FLUCELVAX>(Multi-Dose) 03/30/2018 Not Given Deferred: Patient Refused [facility] Influenza Vaccine 05/07/2017 Not Given Deferred: Patient Refused [facility] Influenza Vaccine, Seasonal, Injectable 05/07/2017 Not Given Deferred: Patient Refused [facility] Albuterol 0.083% (3ml) 12/28/2015 completed [facility] Albuterol 0.083% (3ml) 12/14/2015 completed [facility] KETOROLAC 60 MG/2 ML IM 12/07/[address] [facility] KETOROLAC 60 MG/2 ML IM 11/05/[address] [facility] Triamcinolone 40mg/ml Inj 11/05/[address] [facility] KETOROLAC 60 MG/2 ML IM 10/05/[address] [facility] Triamcinolone 40mg/ml Inj 10/05/[address] [facility] KETOROLAC 60 MG/2 ML IM 09/03/[address] [facility] Triamcinolone 40mg/ml Inj 09/03/[address] [facility] Bicillin LA (pen G Benzathine 1,200,000u/2ml) 04/30/2015 [facility] B[facility] (pen G Benzathine 1,200,000u/2ml) 01/16/2015 completed [facility] Bicillin LA (pen G Benzathine 1,200,000u/2ml) 12/11/[address] [facility] KETOROLAC 60 MG/2 ML IM 03/27/2014 completed [facility] Bicillin LA (pen G Benzathine 1,200,000u/2ml) 03/27/2014 completed [facility] KETOROLAC 60 MG/2 ML IM 01/23/2014 completed [facility] Bicillin LA (pen G Benzathine 1,200,000u/2ml) 01/23/2014 completed [facility] Vitamin B12 Cyanocobalamin 1000mcg Inj 05/13/2013 completed [facility] Bicillin LA (pen G Benzathine 1,200,000u/2ml) 05/13/2013 completed [facility] Bicillin LA (pen G Benzathine 1,200,000u/2ml) 12/27/2012 completed [facility] Bicillin LA (pen G Benzathine 1,200,000u/2ml) 08/24/2012 completed [facility] Bicillin LA (pen G Benzathine 1,200,000u/2ml) 07/12/2012 completed [facility] Bicillin LA (pen G Benzathine 1,200,000u/2ml) 01/13/2012 completed [facility] Bicillin LA (pen G Benzathine 1,200,000u/2ml) 06/27/2011 completed [facility] Bicillin LA (pen G Benzathine 1,200,000u/2ml) 04/25/2011 completed [facility] Bicillin LA (pen G Benzathine 1,200,000u/2ml) 01/13/2011 completed [facility] Vitamin B12 Cyanocobalamin 1000mcg Inj 05/10/2010 [facility] Bicillin [place] (pen G Benzathine 1,200,000u/2ml) 05/10/[address] [facility] Bicillin LA (pen G Benzathine 1,200,000u/2ml) 04/19/2010 completed [facility] Triamcinolone 40mg/ml Inj 04/19/2010 completed [facility] Vitamin B12 Cyanocobalamin 1000mcg Inj 04/19/2010 completed [facility] Triamcinolone 40mg/ml Inj 10/12/2009 completed [facility] Bicillin LA (pen G Benzathine 1,200,000u/2ml) 10/12/2009 completed [facility] Ceftriazone 1gm Injection 08/14/2009 completed [facility] Bicillin LA (pen G Benzathine 1,200,000u/2ml) 07/09/2009 completed [facility] Vitamin B12 Cyanocobalamin 1000mcg Inj 07/09/2009 completed [facility] Bicillin LA (pen G Benzathine 1,200,000u/2ml) 06/04/2009 completed [facility] Vitamin B12 Cyanocobalamin 1000mcg Inj 06/04/2009 completed [facility] Bicillin LA (pen G Benzathine 1,200,000u/2ml) 05/07/2009 completed [facility] Ketorolac 60mg/2ml Syr Inj 04/20/2009 completed [facility] Bicillin LA (pen G Benzathine 1,200,000u/2ml) 04/20/2009 completed [facility] Influenza Vaccine 04/10/2009 completed [facility] Ceftriazone 1gm Injection 04/10/2009 completed [facility] Ketorolac 60mg/2ml Syr Inj 04/10/2009 completed [facility] Bicillin LA (pen G Benzathine 1,200,000u/2ml) 03/27/2009 completed [facility] Toradol 60mg/2ml Syringe 03/27/2009 completed [facility] Toradol 60mg/2ml Syringe 01/29/2009 completed [facility] Vitamin B12 Cyanocobalamin 1000mcg Inj 01/29/2009 completed [facility] Triamcinolone 40mg/ml Inj 01/29/2009 completed [facility] Vitamin B12 Cyanocobalamin 1000mcg Inj 01/15/2009 completed [facility] Bicillin LA (pen G Benzathine 1,200,000u/2ml) 01/15/2009 completed [facility] Vitamin B12 Cyanocobalamin 1000mcg Inj 11/08/2008 completed [facility] Ceftriazone 1gm Injection 11/08/2008 completed [facility] Vitamin B12 Cyanocobalamin 1000mcg Inj 10/09/2008 completed [facility] Vitamin B12 Cyanocobalamin 1000mcg Inj 08/17/2008 completed [facility] Vitamin B12 Cyanocobalamin 1000mcg Inj 07/27/2008 completed [facility] Ceftriazone 1gm Injection 06/15/2008 completed [facility] Influenza Vaccine 06/01/2008 completed [facility] Ceftriazone 1gm Injection 05/18/2008 completed [facility] Influenza Vaccine 08/17/2007 completed [facility] Td Tetanus, diphtheria Toxoids Vaccine 06/25/2007 completed [facility] Results Order Name Results Value Reference Range Date Interpretation Comments Source Blood leukocytes automated count (number/volume) 6.56 4.8 - 10.8 12/20/2018 [facility] Blood erythrocytes automated count (number/volume) 5.01 4.3 - 5.7 12/20/2018 [facility] Blood hemoglobin measurement (moles/volume) 15.6 14.0 - 18.0 12/20/2018 [facility] Automated blood hematocrit (volume fraction) 45.7 38.2 - 49.6 12/20/2018 [facility] Automated erythrocyte mean corpuscular volume 91.2 81 - 99 12/20/2018 [facility] Automated erythrocyte mean corpuscular hemoglobin (mass per erythrocyte) 31.1 28 - 32 12/20/2018 [facility] Automated erythrocyte mean corpuscular hemoglobin concentration measurement (mass/volume) 34.1 31 - 35 12/20/2018 [facility] RDW BldCo-Rto 12.1 11.7 - 14.4 12/20/2018 [facility] Automated blood platelet count (count/volume) 140 140 - 360 12/20/2018 [facility] Automated blood segmented neutrophil count as percentage of total leukocytes 5.0 38.7 - 80.0 12/20/2018 [facility] Automated blood lymphocyte count as percentage ot total leukocytes 1.1 18.0 - 39.1 12/20/2018 [facility] Automated blood monocyte count as percentage of total leukocytes 0.4 4.4 - 11.3 12/20/2018 [facility] Automated blood eosinophil count as percentage of total leukocytes 0.1 0.0 - 6.0 12/20/2018 [facility] Automated blood basophil count as percentage of total leukocytes 0.0 0.0 - 1.0 12/20/2018 [facility] IM GRANULOCYTES % 0.0 0.0 - 1.0 12/20/2018 [facility] Serum or plasma sodium measurement (moles/volume) 137 136 - 145 12/20/2018 [facility] Serum or plasma potassium measurement (moles/volume) 4.2 3.5 - 5.1 12/20/2018 [facility] Serum or plasma chloride measurement (moles/volume) 101 98 - 107 12/20/2018 [facility] Serum or plasma carbon dioxide, total measurement (moles/volume) 25 22 - 29 12/20/2018 [facility] Serum or plasma anion gap 15.2 8 - 16 12/20/2018 [facility] Serum or plasma urea nitrogen measurement (mass/volume) 11 7 - 26 12/20/2018 [facility] Serum or plasma creatinine measurement (mass/volume) 1.07 0.72 - 1.25 12/20/2018 [facility] Serum or plasma urea nitrogen/creatinine mass ratio 10 6 - 25 12/20/2018 [facility] Estimated glomerular filtration rate (GFR) determination > 60 60 12/20/2018 [facility] Glucose measurement 83 74 - 118 12/20/2018 [facility] Serum or plasma calcium measurement (mass/volume) 9.8 8.4 - 10.2 12/20/2018 [facility] Serum or plasma total bilirubin measurement (mass/volume) 1.1 0.2 - 1.2 12/20/2018 [facility] Aspartate Amino Transf (AST/SGOT) 18 5 - 34 12/20/2018 [facility] Serum or plasma alanine aminotransferase measurement (enzymatic activity/volume) 13 0 - 55 12/20/2018 [facility] Serum or plasma protein measurement (mass/volume) 7.1 6.5 - 8.1 12/20/2018 [facility] Serum or plasma albumin measurement (mass/volume) 3.8 3.5 - 5.0 12/20/2018 [facility] Plasma globulin measurement (mass/volume) 3.3 2.3 - 3.5 12/20/2018 [facility] Serum or plasma albumin/globulin mass ratio 1.2 0.8 - 2.0 12/20/2018 [facility] Serum or plasma alkaline phosphatase measurement (enzymatic activity/volume) 63 40 - 150 12/20/2018 [facility] Troponin I measurement by highly sensitive enzyme immunoassay < 0.001 0 - 0.300 12/20/2018 [facility] Serum or plasma lipase measurement (enzymatic activity/volume) 25 8 - 78 12/20/2018 [facility] URINE DRUG SCREEN <td ID="[id number]">Amphetamine</td><td><span>Negative</span>
<span style="allIndent"><span style="cellHeader">Comment: </span>
<span ID="[id number]" style="pre">Calibrated Standard: D- Methamphetamine
Positive if urine level >ee=0116 ng/mL
Test performed on [id number] using EMIT Immunoassay

</span></span></td><td>NEG</td><td>BT MAIN-STATION 1</td><td ID="[id number]"/> Negative NEG 11/16/2018 Calibrated Standard: D-Methamphetamine
Positive if urine level >rl=9151 ng/mL
Test performed on [id number] using EMIT Immunoassay

[facility] URINE DRUG SCREEN <td ID="[id number]">Barbiturate</td><td><span>Negative</span>
<span style="allIndent"><span style="cellHeader">Comment: </span>
<span ID="[id number]" style="pre">Calibrated Standard: Secobarbital
Positive if urine level is >om=882 ng/mL
Test performed on [id number] using EMIT Immunoassay

</span></span></td><td>NEG</td><td>BT MAIN-STATION 1</td><td ID="[id number]"/> Negative NEG 11/16/2018 Calibrated Standard: Secobarbital
Positive if urine level is >cc=472 ng/mL
Test performed on [id number] using EMIT Immunoassay

[facility] URINE DRUG SCREEN <td ID="[id number]">Benzodiazepine</td><td><span>Negative</span>
<span style="allIndent"><span style="cellHeader">Comment: </span>
<span ID="[id number]" style="pre">Calibrated Standard: Lormethazepam
Positive if urine level is >kp=297 ng/mL
Test performed on [id number] using EMIT Immunoassay

</span></span></td><td>NEG</td><td>BT MAIN-STATION 1</td><td ID="[id number]"/> Negative NEG 11/16/2018 Calibrated Standard: Lormethazepam
Positive if urine level is >we=882 ng/mL
Test performed on [id number] using EMIT Immunoassay

[facility] URINE DRUG SCREEN <td ID="[id number]">Cannabinoid</td><td><span>Negative</span>
<span style="allIndent"><span style="cellHeader">Comment: </span>
<span ID="[id number]" style="pre"> Calibrated Standard: 11 nor-delta(9)-THC carboxylic a
Positive if urine level >or=50
Test performed on [id number] using EMIT Immunoassay

</span></span></td><td>NEG</td><td>BT MAIN-STATION 1</td><td ID="[id number]"/> Negative NEG 11/16/2018 Calibrated Standard: 11 nor-delta(9)-THC carboxylic a
Positive if urine level >or=50
Test performed on [id number] using EMIT Immunoassay

[facility] URINE DRUG SCREEN <td ID="[id number]">Cocaine</td><td><span>Negative</span>
<span style="allIndent"><span style="cellHeader">Comment: </span>
<span ID="[id number]" style="pre"> Calibrated Standard: Benzoylecgonine
Positive if urine level >ea=217
Test performed on [id number] using EMIT Immunoassay

</span></span></td><td>NEG</td><td>BT MAIN-STATION 1</td><td I D="[id number]"/> Negative NEG 11/16/2018 Calibrated Standard: Benzoylecgonine
Positive if urine level >rb=211
Test performed on [id number] using EMIT Immunoassay

[facility] URINE DRUG SCREEN <td ID="[id number]">Opiate, Ur</td><td><span>Negative</span>
<span style="allIndent"><span style="cellHeader">Comment: </span>
<span ID="[id number]" style="pre"> Calibrated Standard: Morphine
Positive if urine level >xt=238
Test performed on [id number] using EMIT Immunoassay

</span></span></td><td>NEG</td><td>BT MAIN-STATION 1</td><td ID="[id number]"/> Negative NEG 11/16/2018 Calibrated Standard: Morphine
Positive if urine level >wu=700
Test performed on [id number] using EMIT Immunoassay

[facility] URINE DRUG SCREEN <td ID="[id number]">PCP</td><td><span>Negative</span>
<span style="allIndent"><span style="cellHeader">Comment: </span>
<span ID="[id number]" style="pre"> Calibrated Standard: Phencyclidine
Positive if urine level >or=25
Test performed on [id number] using EMIT Immunoassay
Urine Toxicology Screen results are to be used only for Medical purposes.

</span></span></td><td>NEG</td><td>BT MAIN- STATION 1</td><td ID="[id number]"/> Negative NEG 11/16/2018 Calibrated Standard: Phencyclidine
Positive if urine level >or=25
Test performed on [id number] using EMIT Immunoassay
Urine Toxicology Screen results are to be used only for Medical purposes.

[facility] URINE DRUG SCREEN Amphetamine Negative NEG 09/27/2018 Calibrated Standard: D-Methamphetamine
Positive if urine level >bl=7869 ng/mL
Test performed on [id number] using EMIT Immunoassay

[facility] URINE DRUG SCREEN Barbiturate Negative NEG 09/27/2018 Calibrated Standard: Secobarbital
Positive if urine level is >zt=307 ng/mL
Test performed on [id number] using EMIT Immunoassay

[facility] URINE DRUG SCREEN Benzodiazepine Negative NEG 09/27/2018 Calibrated Standard: Lormethazepam
Positive if urine level is >yl=543 ng/mL
Test performed on [id number] using EMIT Immunoassay

[facility] URINE DRUG SCREEN Cannabinoid Negative NEG 09/27/2018 Calibrated Standard: 11 nor-delta(9)-THC carboxylic a
Positive if urine level >or=50
Test performed on [id number] using EMIT Immunoassay

[facility] URINE DRUG SCREEN Cocaine Negative NEG 09/27/2018 Calibrated Standard: Benzoylecgonine
Positive if urine level >jl=116
Test performed on [id number] using EMIT Immunoassay

[facility] URINE DRUG SCREEN Opiate, Ur Negative NEG 09/27/2018 Calibrated Standard: Morphine
Positive if urine level >vf=293
Test performed on [id number] using EMIT Immunoassay

[facility] URINE DRUG SCREEN PCP Negative NEG 09/27/2018 Calibrated Standard: Phencyclidine
Positive if urine level >or=25
Test performed on [id number] using EMIT Immunoassay
Urine Toxicology Screen results are to be used only for Medical purposes.

[facility] URINE DRUG SCREEN Amphetamine Negative NEG 06/05/2018 Calibrated Standard: D-Methamphetamine
Positive if urine level >ie=9060 ng/mL
Test performed on [id number] using EMIT Immunoassay

[facility] URINE DRUG SCREEN Barbiturate Negative NEG 06/05/2018 Calibrated Standard: Secobarbital
Positive if urine level is >ro=489 ng/mL
Test performed on [id number] using EMIT Immunoassay

[facility] URINE DRUG SCREEN Benzodiazepine Negative NEG 06/05/2018 Calibrated Standard: Lormethazepam
Positive if urine level is >vg=235 ng/mL
Test performed on [id number] using EMIT Immunoassay

[facility] URINE DRUG SCREEN Cannabinoid Negative NEG 06/05/2018 Calibrated Standard: 11 nor-delta(9)-THC carboxylic a
Positive if urine level >or=50
Test performed on [id number] using EMIT Immunoassay

[facility] URINE DRUG SCREEN Cocaine Negative NEG 06/05/2018 Calibrated Standard: Benzoylecgonine
Positive if urine level >oq=244
Test performed on [id number] using EMIT Immunoassay

[facility] URINE DRUG SCREEN Opiate, Ur Negative NEG 06/05/2018 Calibrated Standard: Morphine
Positive if urine level >by=945
Test performed on [id number] using EMIT Immunoassay

[facility] URINE DRUG SCREEN PCP Negative NEG 06/05/2018 Calibrated Standard: Phencyclidine
Positive if urine level >or=25
Test performed on [id number] using EMIT Immunoassay
Urine Toxicology Screen results are to be used only for Medical purposes.

[facility] URINE DRUG SCREEN Amphetamine Negative NEG 05/01/2018 Calibrated Standard: D-Methamphetamine
Positive if urine level >iw=8991 ng/mL
Test performed on [id number] using EMIT Immunoassay

[facility] URINE DRUG SCREEN Barbiturate Negative NEG 05/01/2018 Calibrated Standard: Secobarbital
Positive if urine level is >ez=512 ng/mL
Test performed on [id number] using EMIT Immunoassay

[facility] URINE DRUG SCREEN Benzodiazepine Negative NEG 05/01/2018 Calibrated Standard: Lormethazepam
Positive if urine level is >xz=201 ng/mL
Test performed on [id number] using EMIT Immunoassay

[facility] URINE DRUG SCREEN Cannabinoid Negative NEG 05/01/2018 Calibrated Standard: 11 nor-delta(9)-THC carboxylic a
Positive if urine level >or=50
Test performed on [id number] using EMIT Immunoassay

[facility] URINE DRUG SCREEN Cocaine Negative NEG 05/01/2018 Calibrated Standard: Benzoylecgonine
Positive if urine level >bv=366
Test performed on [id number] using EMIT Immunoassay

[facility] URINE DRUG SCREEN Opiate, Ur Negative NEG 05/01/2018 Calibrated Standard: Morphine
Positive if urine level >sf=067
Test performed on [id number] using EMIT Immunoassay

[facility] URINE DRUG SCREEN PCP Negative NEG 05/01/2018 Calibrated Standard: Phencyclidine
Positive if urine level >or=25
Test performed on [id number] using EMIT Immunoassay
Urine Toxicology Screen results are to be used only for Medical purposes.

[facility] ENDOMYSIAL AB IGA Endomysial Antibody IgA Negative Reference range: Negative 04/03/2018 [facility] GASTRIN, SERUM Gastrin, Serum 25 Reference range: 0 to 115 Unit: pg/mL (note) Siemens Immulite 2000 Immunochemiluminometric assay (ICMA) 04/02/2018 [facility] TSH <td ID="[id number]">TSH</td><td>0.94</td><td>0.57 - 3.74 uIU/mL</td><td>BT MAIN-STATION 1</td><td ID="[id number]"/> 0.94 0.57 - 3.74 04/01/2018 [facility] B NATRIURETIC PEPT B Natriuretic Pept 25 <101 03/31/2018 [facility] B-TYPE NATRIURETIC PEPTIDE (BNP) B Natriuretic Pept 25 <101 03/31/2018 [facility] HEPATITIS PANEL <td ID="[id number]">HCV IgG</td><td>Negative</td><td>NEG</td><td>BT MAIN-STATION 3</td><td ID="[id number]"/> Negative NEG 03/31/2018 [facility] HEPATITIS PANEL <td ID="[id number]">HBsAg</td><td>Negative</td><td>NEG</td><td>BT MAIN-STATION 3</td><td ID="[id number]"/> Negative NEG 03/31/2018 [facility] HEPATITIS PANEL <td ID="[id number]">HAV, IgM</td><td>Negative</td><td>NEG</td><td>BT MAIN-STATION 3</td><td ID="[id number]"/> Negative NEG 03/31/2018 [facility] HEPATITIS PANEL <td ID="[id number]">HBcAb, IgM</td><td>Negative</td><td>NEG</td><td>BT MAIN-STATION 3</td><td ID="[id number]"/> Negative NEG 03/31/2018 [facility] HIV-1/HIV-2 ROUTINE SCREENING <td ID="[id number]">HIV-1/HIV-2</td><td>Negative</td><td>NEG</td><td>BT MAIN-STATION 3</td><td ID="[id number]"/> Negative NEG 03/31/2018 [facility] AMYLASE Amylase 38 29 - 103 03/31/2018 [facility] HEMOGLOBIN A1C <td ID="[id number]">Hemoglobin A1c</td><td>5.4</td><td>4.3 - 6.1 %</td><td>BT DIAGNOSTIC IMMUNOLOGY</td><td ID="[id number]"/> 5.4 4.3 - 6.1 03/31/2018 [facility] HEMOGLOBIN A1C Est Average Gluc 108.3 03/31/2018 [facility] ELECTROLYTES <td ID="[id number]">Sodium</td><td>138</td><td>136 - 145 mmol/L</td><td>BT MAIN-STATION 1</td><td ID="[id number]"/> 138 136 - 145 03/31/2018 [facility] ELECTROLYTES <td ID="[id number]">Potassium</td><td>3.8</td><td>3.5 - 5.1 mmol/L</td><td>BT MAIN-STATION 1</td><td ID="[id number]"/> 3.8 3.5 - 5.1 03/31/2018 [facility] ELECTROLYTES <td ID="[id number]">Chloride</td><td>100</td><td>98 - 107 mmol/L</td><td>BT MAIN-STATION 1</td><td ID="[id number]"/> 100 98 - 107 03/31/2018 [facility] ELECTROLYTES <td ID="[id number]">CO2</td><td>29</td><td>21 - 31 mmol/L</td><td>BT MAIN-STATION 1</td><td ID="[id number]"/> 29 21 - 31 03/31/2018 [facility] ELECTROLYTES Anion Gap 9 03/31/2018 [facility] GLUCOSE, FASTING Glucose, Fasting 90 74 - 106 03/31/2018 [facility] LIPASE <td ID="[id number]">Lipase</td><td>16</td><td>11 - 82 U/L</td><td>BT MAIN-STATION 1</td><td ID="[id number]"/> 16 11 - 82 03/31/2018 [facility] LIPID PROFILE <td ID="[id number]">Cholesterol</td><td><span>125</span>
<span style="allIndent"><span style="cellHeader">Comment: </span>
<span ID="[id number]" style="pre">REFERENCE RANGE:
Desirable: <200 mg/dL
Borderline: 200-240 mg/dL
High Risk: >240 mg/dL

</span></span></td><td>mg/dL</td><td>BT MAIN-STATION 1</td><td ID=&amp ;quot;[id number]"/> 125 03/31/2018 REFERENCE RANGE:
Desirable: <200 mg/dL
Borderline: 200-240 mg/dL
High Risk: >240 mg/dL

[facility] LIPID PROFILE <td ID="[id number]">Triglyceride</td><td><span>62</span>
<span style="allIndent"><span style="cellHeader">Comment: </span>
<span ID="[id number]" style="pre">REFERENCE RANGE:
Normal: <150 mg/dL
Borderline High: 150-199 mg/dL
High: 200-499 mg/dL
Very High: >lc=497 mg/dL

</span></span></td><td><150 mg/dL</td><td>BT MAIN- STATION 1</td><td ID="[id number]"/> 62 <150 03/31/2018 REFERENCE RANGE:
Normal: <150 mg/dL
Borderline High: 150-199 mg/dL
High: 200-499 mg/dL
Very High: >wr=918 mg/dL

[facility] LIPID PROFILE <td ID="[id number]">HDL</td><td><span>40</span>
<span style="allIndent"><span style="cellHeader">Comment: </span>
<span ID="[id number]" style="pre">Increased CHD risk: <40 mg/dL
Decreased CHD risk: >60 mg/dL

</span></span>&am p;lt;/td><td>mg/dL</td><td>BT MAIN-STATION 1</td><td ID="[id number]"/> 40 03/31/2018 Increased CHD risk: <40 mg/dL
Decreased CHD risk: >60 mg/dL

[facility] LIPID PROFILE <td ID="[id number]">LDL</td><td><span>73</span>
<span style="allIndent"><span style="cellHeader">Comment: </span>
<span ID="[id number]" style="pre">REFERENCE RANGE:
Optimal: <100 mg/dL
Near Optimal: 100-129 mg/dL
Borderline High: 130-159 mg/dL
High: 160-189 mg/dL
Very High: >rq=608 mg/dL

</span></span></td><td>mg/dL</td><td>BT MAIN-STATION 1</td><td ID="[id number]"/> 73 03/31/2018 REFERENCE RANGE:
Optimal: <100 mg/dL
Near Optimal: 100-129 mg/dL
Borderline High: 130-159 mg/dL
High: 160-189 mg/dL
Very High: >zz=646 mg/dL

[facility] LIVER PROFILE <td ID="[id number]">Protein, Total, Serum</td><td>6.1</td><td>6.0 - 8.3 g/dL</td><td>BT MAIN-STATION 1</td><td ID="[id number]"/> 6.1 6 - 8.3 03/31/2018 [facility] LIVER PROFILE <td ID="[id number]">Albumin</td><td><span style="flagData">3.7</span><span style="flagData"> (L)</span></td><td>4.2 - 5.5 g/dL</td><td>BT MAIN-STATION 1</td><td ID="[id number]"/> 3.7 4.2 - 5.5 03/31/2018 [facility] LIVER PROFILE <td ID="[id number]">Bilirubin, Total</td><td>0.8</td><td>0.2 - 1.2 mg/dL</td><td>BT MAIN-STATION 1</td><td ID="[id number]"/> 0.8 0.2 - 1.2 03/31/2018 [facility] LIVER PROFILE <td ID="[id number]">Alkaline Phosphatase, S</td><td>56</td><td>34 - 104 U/L</td><td>BT MAIN-STATION 1</td><td ID="[id number]"/> 56 34 - 104 03/31/2018 [facility] LIVER PROFILE <td ID="[id number]">AST (SGOT)</td><td><span style="flagData">12</span><span style="flagData"> (L)</span></td><td>13 - 39 U/L</td><td>BT MAIN-STATION 1</td><td ID="[id number]"/> 12 13 - 39 03/31/2018 [facility] LIVER PROFILE <td ID="[id number]">ALT</td><td>13</td><td>7 - 52 U/L</td><td>BT MAIN-STATION 1</td><td ID="[id number]"/> 13 7 - 52 03/31/2018 [facility] LIVER PROFILE <td ID="[id number]">D Bilirubin</td><td>0.2</td><td>0.0 - 0.2 mg/dL</td><td>BT MAIN-STATION 1</td><td ID="[id number]"/> 0.2 0 - 0.2 03/31/2018 [facility] LIVER PROFILE Lab Interpretation Abnormal 03/31/2018 [facility] UREA NITROGEN/CREA <td ID="[id number]">BUN</td><td>14</td><td>7 - 25 mg/dL</td><td>BT MAIN-STATION 1</td><td ID="[id number]"/> 14 7 - 25 03/31/2018 [facility] UREA NITROGEN/CREA <td ID="[id number]">Creatinine</td><td>0.80</td><td>0.7 - 1.3 mg/dL</td><td> MAIN-STATION 1</td><td ID="[id number]"/> 0.80 0.7 - 1.3 03/31/2018 [facility] UREA NITROGEN/CREA GFR, Estimated >60 mL/min/1.73 m2 03/31/2018 [facility] UREA NITROGEN/CREA eGFR If Africn Am >60 mL/min/1.73 m2 03/31/2018 [facility] CBC <td ID="[id number]">WBC</td><td>7.7</td><td>4.5 - 12.0 K/uL</td><td> MAIN-STATION 2</td><td ID="[id number]"/> 7.7 4.5 - 12 03/31/2018 [facility] CBC <td ID="[id number]">RBC</td><td><span style="flagData">4.54</span><span style="flagData"> (L)</span></td><td>4.60 - 6.20 M/uL</td><td>BT MAIN-STATION 2</td><td ID="[id number]"/> 4.54 4.60 - 6.20 03/31/2018 [facility] CBC <td ID="[id number]">Hemoglobin</td><td>15.2</td><td>14.0 - 18.0 g/dL</td><td>BT MAIN-STATION 2</td><td ID="[id number]"/> 15.2 14 - 18 03/31/2018 [facility] CBC <td ID="[id number]">Hematocrit</td><td>46.1</td><td>40.0 - 54.0 %</td><td>BT MAIN-STATION 2</td><td ID="[id number]"/> 46.1 40 - 54 03/31/2018 [facility] CBC <td ID="[id number]">MCV</td><td><span style="flagData">102</span><span style="flagData"> (H)</span></td><td>82 - 92 fL</td><td>BT MAIN-STATION 2</td><td ID="[id number]"/> 102 82 - 92 03/31/2018 [facility] CBC <td ID="[id number]">MCH</td><td><span style="flagData">33.5</span><span style="flagData"> (H)</span></td><td>27.0 - 31.0 pg</td><td>BT MAIN-STATION 2</td><td ID="[id number]"/> 33.5 27 - 31 03/31/2018 [facility] CBC <td ID="[id number]">MCHC</td><td>33.0</td><td>32.0 - 36.0 g/dL</td><td>BT MAIN-STATION 2</td><td ID="[id number]"/> 33.0 32 - 36 03/31/2018 [facility] CBC <td ID="[id number]">RDW</td><td><span style="flagData">49.3</span><span style="flagData"> (H)</span></td><td>35.1 - 43.9 fL</td><td>BT MAIN-STATION 2</td><td ID="[id number]"/> 49.3 35.1 - 43.9 03/31/2018 [facility] CBC <td ID="[id number]">Platelets</td><td>153</td><td>150 - 400 K/uL</td><td>BT MAIN-STATION 2</td><td ID="[id number]"/> 153 150 - 400 03/31/2018 [facility] CBC <td ID="[id number]">Mean Platelet Volume</td><td>11.2</td><td>9.4 - 12.4 fL</td><td>BT MAIN-STATION 2</td><td ID="[id number]"/> 11.2 9.4 - 12.4 03/31/2018 [facility] CBC Percent NRBC 0.0 03/31/2018 [facility] CBC Absolute NRBC 0.00 03/31/2018 [facility] CBC Lab Interpretation Abnormal 03/31/2018 [facility] UA CHEMISTRIES <td ID="[id number]">Color</td><td>Yellow</td><td/><td>BT MAIN-STATION 4</td><td ID="[id number]"/> Yellow 03/31/2018 [facility] UA CHEMISTRIES Clarity Clear 03/31/2018 [facility] UA CHEMISTRIES <td ID="[id number]">Specific Lithia</td><td>1.010</td><td>1.001 - 1.035</td><td>BT MAIN-STATION 4</td><td ID="[id number]"/> 1.010 1.001 - 1.035 03/31/2018 [facility] UA CHEMISTRIES <td ID="[id number]">pH</td><td>7.0</td><td>5 - 8</td><td>BT MAIN-STATION 4</td><td ID="[id number]"/> 7.0 5 - 8 03/31/2018 [facility] UA CHEMISTRIES <td ID="[id number]">Protein</td><td>Negative</td><td>NEG</td><td>BT MAIN-STATION 4</td><td ID="[id number]"/> Negative NEG 03/31/2018 [facility] UA CHEMISTRIES <td ID="[id number]">Glucose</td><td>Negative</td><td>NEG</td><td>BT MAIN-STATION 4</td><td ID="[id number]"/> Negative NEG 03/31/2018 [facility] UA CHEMISTRIES <td ID="[id number]">Ketones</td><td>Negative</td><td>NEG</td><td>BT MAIN-STATION 4</td><td ID="[id number]"/> Negative NEG 03/31/2018 [facility] UA CHEMISTRIES <td ID="[id number]">Bilirubin</td><td>Negative</td><td>NEG</td><td>BT MAIN-STATION 4</td><td ID="[id number]"/> Negative NEG 03/31/2018 [facility] UA CHEMISTRIES <td ID="[id number]">Nitrate</td><td>Negative</td><td>NEG</td><td>BT MAIN-STATION 4</td><td ID="[id number]"/> Negative NEG 03/31/2018 [facility] UA CHEMISTRIES <td ID="[id number]">Urobilinogen,Semi- Qn</td><td><1.0</td><td>0.2 - 1.0 EU/dL</td><td>BT MAIN-STATION 4</td><td ID="[id number]"/> <1.0 0.2 - 1 03/31/2018 [facility] UA CHEMISTRIES <td ID="[id number]">Leukocyte</td><td>Negative</td><td>NEG</td><td>BT MAIN-STATION 4</td><td ID="[id number]"/> Negative NEG 03/31/2018 [facility] UA CHEMISTRIES Occult Blood Negative NEG 03/31/2018 [facility] Urine color determination YELLOW YELLOW 03/13/2018 [facility] Urine clarity CLEAR CLEAR 03/13/2018 [facility] Specific gravity of Urine by Test strip 1.005 1.010 - 1.025 03/13/2018 [facility] Urine pH measurement by automated test strip 7 5 - 7 03/13/2018 [facility] Urine leukocyte esterase detection by dipstick NEGATIVE NEGATIVE 03/13/2018 [facility] Urine nitrite detection NEGATIVE NEGATIVE 03/13/2018 [facility] Urine protein measurement by test strip (mass/volume) NEGATIVE NEGATIVE 03/13/2018 [facility] Urine glucose detection NEGATIVE NEGATIVE 03/13/2018 [facility] Urine ketones detection by automated test strip NEGATIVE NEGATIVE 03/13/2018 [facility] Urine urobilinogen measurement by test strip (mass/volume) 0.2 0.2 - 1 03/13/2018 [facility] Urine total bilirubin measurement (mass/volume) NEGATIVE NEGATIVE 03/13/2018 [facility] Urine erythrocytes detection NEGATIVE NEGATIVE 03/13/2018 [facility] Automated urine sediment leukocyte count by microscopy (number/high power field) 0-5 0 - 5 03/13/2018 [facility] Erythrocytes detection in urine sediment by light microscopy 0-5 0 - 5 03/13/2018 [facility] Bacteria detection in urine sediment by light microscopy RARE NONE 03/13/2018 [facility] Epithelial cells detection in urine sediment by light microscopy RARE NONE 03/13/2018 [facility] Automated urine sediment leukocyte count by microscopy (number/high power field) Automated urine sediment leukocyte count by microscopy (number/high power field) <5 0 - 5 03/13/2018 [facility] Bacteria detection in urine sediment by light microscopy Bacteria detection in urine sediment by light microscopy RARE NONE 03/13/2018 [facility] Epithelial cells detection in urine sediment by light microscopy Epithelial cells detection in urine sediment by light microscopy RARE NONE 03/13/2018 [facility] Erythrocytes detection in urine sediment by light microscopy Erythrocytes detection in urine sediment by light microscopy <5 0 - 5 03/13/2018 [facility] Specific gravity of Urine by Test strip Specific gravity of Urine by Test strip 1.005 1.010 - 1.025 03/13/2018 [facility] Urine clarity Urine clarity CLEAR CLEAR 03/13/2018 [facility] Urine color determination Urine color determination YELLOW YELLOW 03/13/2018 [facility] Urine erythrocytes detection Urine erythrocytes detection NEGATIVE NEGATIVE 03/13/2018 [facility] Urine glucose detection Urine glucose detection NEGATIVE NEGATIVE 03/13/2018 [facility] Urine ketones detection by automated test strip Urine ketones detection by automated test strip NEGATIVE NEGATIVE 03/13/2018 [facility] Urine leukocyte esterase detection by dipstick Urine leukocyte esterase detection by dipstick NEGATIVE NEGATIVE 03/13/2018 [facility] Urine nitrite detection Urine nitrite detection NEGATIVE NEGATIVE 03/13/2018 [facility] Urine pH measurement by automated test strip Urine pH measurement by automated test strip 7 5 - 7 03/13/2018 [facility] Urine protein measurement by test strip (mass/volume) Urine protein measurement by test strip (mass/volume) NEGATIVE NEGATIVE 03/13/2018 [facility] Urine total bilirubin measurement (mass/volume) Urine total bilirubin measurement (mass/volume) NEGATIVE NEGATIVE 03/13/2018 [facility] Urine urobilinogen measurement by test strip (mass/volume) Urine urobilinogen measurement by test strip (mass/volume) 0.2 0.2 - 1 03/13/2018 [facility] Serum or plasma amylase measurement (enzymatic activity/volume) 73 25 - 125 03/13/2018 [facility] Automated blood neutrophil count 5.3 2.1 - 6.9 03/13/2018 [facility] Blood lymphocytes count (number/volume) 1.4 1.0 - 3.2 03/13/2018 [facility] Blood monocytes automated count (number/volume) 0.4 0.2 - 0.8 03/13/2018 [facility] Automated blood eosinophil count 0.0 0.0 - 0.4 03/13/2018 [facility] Automated blood basophil count (count/volume) 0.0 0.0 - 0.1 03/13/2018 [facility] Absolute Immature Granulocyte (auto 0.03 0 - 0.1 03/13/2018 [facility] Serum or plasma creatine kinase measurement (enzymatic activity/volume) 39 30 - 200 03/13/2018 [facility] Serum or plasma creatine kinase MB measurement (mass/volume) 0.60 0 - 5.0 03/13/2018 [facility] Automated blood basophil count (count/volume) Automated blood basophil count (count/volume) 0.0 0.0 - 0.1 03/13/2018 [facility] Automated blood basophil count as percentage of total leukocytes Automated blood basophil count as percentage of total leukocytes 0.1 0.0 - 1.0 03/13/2018 [facility] Automated blood eosinophil count Automated blood eosinophil count 0.0 0.0 - 0.4 03/13/2018 [facility] Automated blood eosinophil count as percentage of total leukocytes Automated blood eosinophil count as percentage of total leukocytes 0.1 0.0 - 6.0 03/13/2018 [facility] Automated blood hematocrit (volume fraction) Automated blood hematocrit (volume fraction) 42.1 38.2 - 49.6 03/13/2018 [facility] Automated blood lymphocyte count as percentage ot total leukocytes Automated blood lymphocyte count as percentage ot total leukocytes 19.0 18.0 - 39.1 03/13/2018 [facility] Automated blood monocyte count as percentage of total leukocytes Automated blood monocyte count as percentage of total leukocytes 5.9 4.4 - 11.3 03/13/2018 [facility] Automated blood neutrophil count Automated blood neutrophil count 5.3 2.1 - 6.9 03/13/2018 [facility] Automated blood platelet count (count/volume) Automated blood platelet count (count/volume) 153 140 - 360 03/13/2018 [facility] Automated blood segmented neutrophil count as percentage of total leukocytes Automated blood segmented neutrophil count as percentage of total leukocytes 74.5 38.7 - 80.0 03/13/2018 [facility] Automated erythrocyte mean corpuscular hemoglobin (mass per erythrocyte) Automated erythrocyte mean corpuscular hemoglobin (mass per erythrocyte) 33.0 28 - 32 03/13/2018 [facility] Automated erythrocyte mean corpuscular hemoglobin concentration measurement (mass/volume) Automated erythrocyte mean corpuscular hemoglobin concentration measurement (mass/volume) 34.4 31 - 35 03/13/2018 [facility] Automated erythrocyte mean corpuscular volume Automated erythrocyte mean corpuscular volume 95.9 81 - 99 03/13/2018 [facility] Blood erythrocytes automated count (number/volume) Blood erythrocytes automated count (number/volume) 4.39 4.3 - 5.7 03/13/2018 [facility] Blood hemoglobin measurement (moles/volume) Blood hemoglobin measurement (moles/volume) 14.5 14.0 - 18.0 03/13/2018 [facility] Blood leukocytes automated count (number/volume) Blood leukocytes automated count (number/volume) 7.12 4.8 - 10.8 03/13/2018 [facility] Blood lymphocytes count (number/volume) Blood lymphocytes count (number/volume) 1.4 1.0 - 3.2 03/13/2018 [facility] Blood monocytes automated count (number/volume) Blood monocytes automated count (number/volume) 0.4 0.2 - 0.8 03/13/2018 [facility] Estimated glomerular filtration rate (GFR) determination Estimated glomerular filtration rate (GFR) determination >60 60 03/13/2018 [facility] Glucose measurement Glucose measurement 104 74 - 118 03/13/2018 [facility] Plasma globulin measurement (mass/volume) Plasma globulin measurement (mass/volume) 3.1 2.3 - 3.5 03/13/2018 [facility] Serum or plasma alanine aminotransferase measurement (enzymatic activity/volume) Serum or plasma alanine aminotransferase measurement (enzymatic activity/volume) 13 0 - 55 03/13/2018 [facility] Serum or plasma albumin measurement (mass/volume) Serum or plasma albumin measurement (mass/volume) 3.5 3.5 - 5.0 03/13/2018 [facility] Serum or plasma albumin/globulin mass ratio Serum or plasma albumin/globulin mass ratio 1.1 0.8 - 2.0 03/13/2018 [facility] Serum or plasma alkaline phosphatase measurement (enzymatic activity/volume) Serum or plasma alkaline phosphatase measurement (enzymatic activity/volume) 55 40 - 150 03/13/2018 [facility] Serum or plasma amylase measurement (enzymatic activity/volume) Serum or plasma amylase measurement (enzymatic activity/volume) 73 25 - 125 03/13/2018 [facility] Serum or plasma anion gap Serum or plasma anion gap 14.8 8 - 16 03/13/2018 [facility] Serum or plasma calcium measurement (mass/volume) Serum or plasma calcium measurement (mass/volume) 9.3 8.4 - 10.2 03/13/2018 [facility] Serum or plasma carbon dioxide, total measurement (moles/volume) Serum or plasma carbon dioxide, total measurement (moles/volume) 24 22 - 29 03/13/2018 [facility] Serum or plasma chloride measurement (moles/volume) Serum or plasma chloride measurement (moles/volume) 105 98 - 107 03/13/2018 [facility] Serum or plasma creatine kinase MB measurement (mass/volume) Serum or plasma creatine kinase MB measurement (mass/volume) 0.60 0 - 5.0 03/13/2018 [facility] Serum or plasma creatine kinase measurement (enzymatic activity/volume) Serum or plasma creatine kinase measurement (enzymatic activity/volume) 39 30 - 200 03/13/2018 [facility] Serum or plasma creatinine measurement (mass/volume) Serum or plasma creatinine measurement (mass/volume) 0.82 0.72 - 1.25 03/13/2018 [facility] Serum or plasma lipase measurement (enzymatic activity/volume) Serum or plasma lipase measurement (enzymatic activity/volume) 31 8 - 78 03/13/2018 [facility] Serum or plasma potassium measurement (moles/volume) Serum or plasma potassium measurement (moles/volume) 3.8 3.5 - 5.1 03/13/2018 [facility] Serum or plasma protein measurement (mass/volume) Serum or plasma protein measurement (mass/volume) 6.6 6.5 - 8.1 03/13/2018 [facility] Serum or plasma sodium measurement (moles/volume) Serum or plasma sodium measurement (moles/volume) 140 136 - 145 03/13/2018 [facility] Serum or plasma total bilirubin measurement (mass/volume) Serum or plasma total bilirubin measurement (mass/volume) 0.9 0.2 - 1.2 03/13/2018 [facility] Serum or plasma urea nitrogen measurement (mass/volume) Serum or plasma urea nitrogen measurement (mass/volume) 13 7 - 26 03/13/2018 [facility] Serum or plasma urea nitrogen/creatinine mass ratio Serum or plasma urea nitrogen/creatinine mass ratio 16 6 - 25 03/13/2018 [facility] Troponin I measurement by highly sensitive enzyme immunoassay Troponin I measurement by highly sensitive enzyme immunoassay <0.001 0 - 0.300 03/13/2018 [facility] Red Cell Distribution Width 12.9 11.7 - 14.4 03/13/2018 [facility] IM GRANULOCYTES % 0.4 0.0 - 1.0 03/13/2018 [facility] Aspartate Amino Transf (AST/SGOT) 13 5 - 34 03/13/2018 [facility] URINE DRUG SCREEN Amphetamine Negative NEG 02/22/2018 Calibrated Standard: D-Methamphetamine
Positive if urine level >iz=7633 ng/mL
Test performed on [id number] using EMIT Immunoassay

[facility] URINE DRUG SCREEN Barbiturate Negative NEG 02/22/2018 Calibrated Standard: Secobarbital
Positive if urine level is >ee=055 ng/mL
Test performed on [id number] using EMIT Immunoassay

[facility] URINE DRUG SCREEN Benzodiazepine Negative NEG 02/22/2018 Calibrated Standard: Lormethazepam
Positive if urine level is >oi=929 ng/mL
Test performed on [id number] using EMIT Immunoassay

[facility] URINE DRUG SCREEN Cannabinoid Negative NEG 02/22/2018 Calibrated Standard: 11 nor-delta(9)-THC carboxylic a
Positive if urine level >or=50
Test performed on [id number] using EMIT Immunoassay

[facility] URINE DRUG SCREEN Cocaine Negative NEG 02/22/2018 Calibrated Standard: Benzoylecgonine
Positive if urine level >yd=709
Test performed on [id number] using EMIT Immunoassay

[facility] URINE DRUG SCREEN Opiate, Ur Negative NEG 02/22/2018 Calibrated Standard: Morphine
Positive if urine level >yj=906
Test performed on [id number] using EMIT Immunoassay

[facility] URINE DRUG SCREEN PCP Negative NEG 02/22/2018 Calibrated Standard: Phencyclidine
Positive if urine level >or=25
Test performed on [id number] using EMIT Immunoassay
Urine Toxicology Screen results are to be used only for Medical purposes.

[facility] UA CHEMISTRIES Color Colorless 01/31/2018 [facility] UA CHEMISTRIES Clarity Clear 01/31/2018 [facility] UA CHEMISTRIES Spec Lithia 1.005 1.001 - 1.035 01/31/2018 [facility] UA CHEMISTRIES pH 6.0 5 - 8 01/31/2018 [facility] UA CHEMISTRIES Protein Negative NEG 01/31/2018 [facility] UA CHEMISTRIES Glucose Negative NEG 01/31/2018 [facility] UA CHEMISTRIES Ketone Negative NEG 01/31/2018 [facility] UA CHEMISTRIES Bilirubin Negative NEG 01/31/2018 [facility] UA CHEMISTRIES Nitrate Negative NEG 01/31/2018 [facility] UA CHEMISTRIES Urobilinogen <1.0 0.2 - 1 01/31/2018 [facility] UA CHEMISTRIES Leukocyte Negative NEG 01/31/2018 [facility] UA CHEMISTRIES Blood Negative [facility]G [facility] 7.36 7.33 - 7.43 01/31/2018 [facility] pCO2, David POC 46.0 38.0 - 50.0 01/31[facility] pO2, David POC 29 50 - 75 01/31/2018 [facility]BG POC Base Excess, David POC 0 01/31/[facility] HCO3, David POC 25.8 22 - 26 01/31/2018 [facility]BG POC % Sat, David POC 53 60 - 85 01/[facility] Lactic Acid, David POC 0.63 0.4 - 2 01/31/2018 [facility]BG POC Sample Type David 01/[facility] TCO2, DAVID POC 27 21 - 32 01/31/2018 [facility]BG POC Lab Interpretation Abnormal 01/31/2018 [facility] HIV-1/HIV-2 ROUTINE SCREENING HIV-1/HIV-2 Negative NEG 01/30/2018 [facility] LIPASE Lipase 14 11 - 82 01/30/2018 [facility] LIVER PROFILE T Protein 6.0 6 - 8.3 01/30/2018 [facility] LIVER PROFILE Albumin 3.7 4.2 - 5.5 01/30/2018 [facility] LIVER PROFILE T Bilirubin 0.8 0.2 - 1.2 01/30/2018 [facility] LIVER PROFILE Alk Phos 67 34 - 104 01/30/2018 [facility] LIVER PROFILE AST 15 13 - 39 01/30/2018 [facility] LIVER PROFILE ALT 13 7 - 52 01/30/2018 [facility] LIVER PROFILE D Bilirubin 0.2 0 - 0.2 01/30/2018 [facility] LIVER PROFILE Lab Interpretation Abnormal 01/30/2018 [facility] CBC/DIFF <td ID="[id number]">WBC</td><td>8.4</td><td>4.5 - 12.0 K/uL</td><td>BT MAIN-STATION 2</td><td ID="[id number]"/> 8.4 4.5 - 12 01/30/2018 [facility] CBC/DIFF <td ID="[id number]">RBC</td><td><span style="flagData">4.15</span><span style="flagData"> (L)</span></td><td>4.60 - 6.20 M/uL</td><td>BT MAIN-STATION 2</td><td ID="[id number]"/> 4.15 4.60 - 6.20 01/30/2018 [facility] CBC/DIFF <td ID="[id number]">Hemoglobin</td><td><span style="flagData">13.5</span><span style="flagData"> (L)</span></td><td>14.0 - 18.0 g/dL</td><td>BT MAIN-STATION 2</td><td ID="[id number]"/> 13.5 14 - 18 01/30/2018 [facility] CBC/DIFF <td ID="[id number]">Hematocrit</td><td><span style="flagData">39.1</span><span style="flagData"> (L)</span></td><td>40.0 - 54.0 %</td><td>BT MAIN-STATION 2</td><td ID="[id number]"/> 39.1 40 - 54 01/30/2018 [facility] CBC/DIFF <td ID="[id number]">MCV</td><td><span style="flagData">94</span><span style="flagData"> (H)</span></td><td>82 - 92 fL</td><td>BT MAIN-STATION 2</td><td ID="[id number]"/> 94 82 - 92 01/30/2018 [facility] CBC/DIFF <td ID="[id number]">MCH</td><td><span style="flagData">32.5</span><span style="flagData"> (H)</span></td><td>27.0 - 31.0 pg</td><td>BT MAIN-STATION 2</td><td ID="[id number]"/> 32.5 27 - 31 01/30/2018 [facility] CBC/DIFF <td ID="[id number]">MCHC</td><td>34.5</td><td>32.0 - 36.0 g/dL</td><td>BT MAIN-STATION 2</td><td ID="[id number]"/> 34.5 32 - 36 01/30/2018 [facility] CBC/DIFF <td ID="[id number]">RDW</td><td><span style="flagData">45.1</span><span style="flagData"> (H)</span></td><td>35.1 - 43.9 fL</td><td>BT MAIN-STATION 2</td><td ID="[id number]"/> 45.1 35.1 - 43.9 01/30/2018 [facility] CBC/DIFF <td ID="[id number]">Platelets</td><td><span style="flagData">138</span><span style="flagData"> (L)</span></td><td>150 - 400 K/uL</td><td>BT MAIN-STATION 2</td><td ID="[id number]"/> 138 150 - 400 01/30/2018 [facility] CBC/DIFF <td ID="[id number]">Mean Platelet Volume</td><td>10.6</td><td>9.4 - 12.4 fL</td><td>BT MAIN-STATION 2</td><td ID="[id number]"/> 10.6 9.4 - 12.4 01/30/2018 [facility] CBC/DIFF Percent NRBC 0.0 01/30/2018 [facility] CBC/DIFF Absolute NRBC 0.00 01/30/2018 [facility] CBC/DIFF <td ID="[id number]">Neutrophils</td><td><span style="flagData">82.3</span><span style="flagData"> (H)</span></td><td>34.0 - 67.9 %</td><td>BT MAIN-STATION 2</td><td ID="[id number]"/> 82.3 34 - 67.9 01/30/2018 [facility] CBC/DIFF <td ID="[id number]">Lymphs</td><td><span style="flagData">11.7</span><span style="flagData"> (L)</span></td><td>21.8 - 50.0 %</td><td>BT MAIN-STATION 2</td><td ID="[id number]"/> 11.7 21.8 - 50 01/30/2018 [facility] CBC/DIFF <td ID="[id number]">Monocytes</td><td>5.5</td><td>5.3 - 12.0 %</td><td>BT MAIN-STATION 2</td><td ID="[id number]"/> 5.5 5.3 - 12 01/30/2018 [facility] CBC/DIFF <td ID="[id number]">Eos</td><td><span style="flagData">0.2</span><span style="flagData"> (L)</span></td><td>0.8 - 5.0 %</td><td>BT MAIN-STATION 2</td><td ID=&am p;quot;[id number]"/> 0.2 0.8 - 5 01/30/2018 [facility] CBC/DIFF <td ID="[id number]">Basos</td><td><span style="flagData">0.1</span><span style="flagData"> (L)</span></td><td>0.2 - 1.2 %</td><td>BT MAIN-STATION 2</td><td ID=& amp;quot;[id number]"/> 0.1 0.2 - 1.2 01/30/2018 [facility] CBC/DIFF Immature Granulocytes 0.2 0.0 - 0.5 01/30/2018 [facility] CBC/DIFF Neutrophils (Absolute) 6.89 1.78 - 5.36 01/30/2018 [facility] CBC/DIFF Lymphs (Absolute) 0.98 1.32 - 3.57 01/30/2018 [facility] CBC/DIFF Monocytes(Absolute) 0.46 0.3 - 0.82 01/30/2018 [facility] CBC/DIFF Eos (Absolute) 0.02 0.04 - 0.54 01/30/2018 [facility] CBC/DIFF Baso (Absolute) 0.01 0.01 - 0.08 01/30/2018 [facility] CBC/DIFF Immature Grans (Abs) 0.02 0 - 0.03 01/30/2018 [facility] CBC/DIFF Lab Interpretation Abnormal 01/30/2018 [facility] TROPONIN I POC Troponin POC 0.00 0 - 0.08 01/30/2018 [facility] Notified [facility] POC CO2 POC 26 21 - 32 01/30/2018 [facility] POC Chloride POC 104 98 - 107 01/30/2018 [facility] POC Potassium POC 3.6 3.5 - 5.1 01/30/2018 [facility] POC Sodium POC 143 136 - 145 01/30/2018 [facility] POC <td ID="[id number]">Glucose POC</td><td>93</td><td>74 - 106 mg/dL</td><td>BT MAIN-STATION 1</td><td ID="[id number]"/> 93 74 - 106 01/30/2018 [facility] POC Urea Nitrogen POC 18 7 - 18 01/30/2018 [facility] POC Creatinine POC 1.2 0.6 - 1.3 01/30/2018 [facility] POC Calcium Ionized POC 1.22 1.15 - 1.29 01/30/2018 [facility] POC Hemoglobin POC 13.9 14 - 18 01/30/2018 [facility] POC Hematocrit POC 41.0 40 - 54 01/30/2018 [facility] POC GFR, Estimated >60 mL/min/1.73 m2 01/30/2018 [facility] POC GFR, Estim, Afr-Am >60 mL/min/1.73 m2 01/30/2018 [facility] POC Lab Interpretation Abnormal 01/30/2018 [facility] 12 LEAD EKG 12 LEAD EKG FOR [facility] Test Date:2018-01-30 Pat Name: KALEN LEDEZMA Department: : Gender: MTechnician: [id number] :1960 Requested By: Order Number:Reading : Carmen Joseph Measurements IntervalsAxis Rate: 60 P:-11 PA: 165QRS:-21 QRSD: 94 T:43 QT: 368 QTc:370 Interpretive Statements SINUS RHYTHM BORDERLINE LEFT AXIS DEVIATION LOW QRS VOLTAGE IN PRECORDIAL LEADS PATTERN CONSISTENT WITH PULMONARY DISEASE INCOMPLETE RIGHT BUNDLE BRANCH BLOCK Electronically Signed On 01-30-18 16:17:20 CDT by Carmen Joseph 01/30/2018 [facility] Activated partial thromboplastin time (aPTT) in platelet poor plasma bycoagulation assay Activated partial thromboplastin time (aPTT) in platelet poor plasma bycoagulation assay 30.5 23.8 - 35.5 11/30/2017 [facility] INR in Platelet poor plasma by Coagulation assay INR in Platelet poor plasma by Coagulation assay 1.19 11/30/2017 [facility] Prothrombin time (PT) in platelet poor plasma by coagulation assay Prothrombin time (PT) in platelet poor plasma by coagulation assay 14.2 11.9 - 14.5 11/30/2017 [facility] B-Type Natriuretic Peptide 32.3 0 - 100 11/30/2017 [facility] THROAT CULTURE Spec Description Throat swab 05/07/2017 [facility] THROAT CULTURE Order Comments None 05/07/2017 [facility] THROAT CULTURE Culture Normal izabela, no Beta Streptococcus isolated 05/07/2017 [facility] THROAT CULTURE Report Status Final 05/10/2017 05/07/2017 [facility] HEMOGLOBIN A1C Hemoglobin A1c 5.1 4.3 - 6.1 05/07/2017 [facility] HEMOGLOBIN A1C Est Average Gluc 99.7 05/07/2017 [facility] GROUP A STREP SCREEN Group A Strep Negative NEG 05/07/2017 [facility] RAPID INFLUENZA SCREEN Spec Description Nasopharyngeal swab 05/07/2017 [facility] RAPID INFLUENZA SCREEN Order Comments None 05/07/2017 [facility] RAPID INFLUENZA SCREEN Direct Exam Negative for Influenza A virus Negative for Influenza B virus 05/07/2017 [facility] RAPID INFLUENZA SCREEN Report Status Final 05/07/2017 05/07/2017 [facility] Pathology Reports No Data Provided for This Section Diagnostic Reports Report Value Date Source CT ABDOMEN AND PELVIS CONTRAST IMPRESSION: No acute abdominal or pelvic abnormalities. Dictated By: Lyubov Martines MD, 01/31/2018 5:15 AM I have reviewed the study and agree with the findings in this report. Signed By: Sonia Contreras MD, 01/31/2018 5:17 AM EXAM: CT Abdomen and Pelvis WITH contrastINDICATION: abdominal painCOMPARISON: None available TECHNIQUE: Abdomen and pelvis were scanned utilizing a multidetectorhelical scanner from the lung base to the pubic symphysis afteradministration of IV contrast. Coronal and sagittal reformations wereobtained. Routine protocol was performed. Scan was performed when duringportal venous phase. IV CONTRAST: 150 mL of Omnipaque 300 ORAL CONTRAST: WaterCOMPLICATIONS: None RADIATION DOSE: Total DLP: 918 mGy*cm Estimated effective dose: (DLP x 0.015 x size factor) mSv CTDIvol has been revie wed. It is below the limits set by theRadiation Protocol Committee (RPC). FINDINGS: LINES and TUBES: None. LOWER THORAX:Unremarkable HEPATOBILIARY:No focal hepatic lesions. No biliary ductaldilation. GALLBLADDER: No radio-opaque stones or sludge. SPLEEN: No splenomegaly. PANCREAS: No focal masses or ductal dilatation. ADRENALS: No adrenal nodules KIDNEYS/URETERS: Kidneys enhance symmetrically.No hydronephrosis. Nocystic or solid mass lesions.No stones. GI TRACT: No abnormal distention, wall thickening, or evidence of bowelobstruction. Appendix is normal. PELVIC ORGANS/BLADDER: Unremarkable. LYMPH NODES: No lymphadenopathy. VESSELS: Patent.Penile calcifications. PERITONEUM / RETROPERITONEUM: No free air or fluid. BONES: Mild lumbar degenerative changes. SOFT TISSUES: Unremarkable. Interface, Rad/Mammog In - 01/31/2018 5:22 AM CDTEXAM: CT Abdomen and Pelvis WITH contrast INDICATION: [...] Sonia Contreras MD, 01/31/2018 5:17 AM 01/31/2018 [facility] Consultation Notes No Data Provided for This Section Discharge Summaries No Data Provided for This Section History and Physicals No Data Provided for This Section Vital Signs Vital Sign Value Date Comments Source Systolic (mm Hg) 124 11/15/2018 [facility] Diastolic (mm Hg) 80 11/15/2018 [facility] Heart Rate 68 11/15/2018 [facility] Temperature Oral (F) 36.56 [place] 11/15/2018 [facility] Respitory Rate 20 11/15/2018 [facility] Height 167.6 cm 11/15/2018 [facility] Weight 124.286 11/15/2018 [facility] Systolic (mm Hg) 117 08/27/2018 [facility] [...] 06/04/2018 [facility] Heart Rate 101 06/04/2018 [facility] Temperature Oral (F) 37 [place] 06/04/2018 [facility] Respitory Rate 22 06/04/2018 [facility] Height 167.6 cm 06/04/2018 [facility] Weight 114.579 06/04/2018 [facility] Systolic (mm Hg) 120 04/30/2018 [facility] Diastolic (mm Hg) 78 04/30/2018 [facility] Heart Rate 79 04/30/2018 [facility] Temperature Oral (F) 36.56 [place] 04/30/2018 [facility] Respitory Rate 19 04/30/2018 [facility] Height 169 cm 04/30/2018 [facility] Weight 109.408 04/30/2018 [facility] BMI Calculated 38.31 04/30/2018 [facility] Systolic (mm Hg) 112 03/30/2018 [facility] Diastolic (mm Hg) 79 03/30/2018 [facility] Heart Rate 76 03/30/2018 [facility] Temperature Oral (F) 36.94 [place] 03/30/2018 [facility] Respitory Rate 20 03/30/2018 [facility] Height 172.7 cm 03/30/2018 [facility] Weight 108.863 03/30/2018 [facility] BMI Calculated 36.49 03/30/2018 [facility] Systolic (mm Hg) 113 02/22/2018 [facility] Diastolic (mm Hg) 73 02/22/2018 [facility] Heart Rate 83 02/22/2018 [facility] Temperature Oral (F) 36.56 [place] 02/22/2018 [facility] Respitory Rate 20 02/22/2018 [facility] Height 172.7 cm 02/22/2018 [facility] Weight 96.616 02/22/2018 [facility] BMI Calculated 32.39 02/22/2018 [facility] Encounters Location Location Details Encounter Type Encounter Number Reason For Visit Attending Provider ADM Date DC Date Status Source [facility] Office Visit [id number] WARREN (obstructive sleep apnea) Overweight Essential hypertension Anxiety Lung infection Spasm of muscle 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 Bilateral low back pain with sciatica, sciatica laterality unspecified, unspecified chronicity Edilson Roberson MD 04/10/2017 04/10/2017 [facility] Social Work [facility] Telephone [id number] Hattie Knight RN 04/17/2017 [facility] Telephone [id number] Edilson Roberson Physician 05/07/2017 [facility] Office Visit [id number] Need for influenza vaccination 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 Severe obesity (BMI >=40) Borderline diabetes Throat irritation PND (post-nasal drip) Other seasonal allergic rhinitis Cynthia Greir Veronica DO 05/07/2017 05/07/2017 [facility] Emergency [place] [facility] [id number] Dysphagia, unspecified type 05/23/2017 05/23/2017 [facility] Orders Only [id number] Spasm of muscle Edilson Roberson MD 05/27/2017 [facility] Refill [id number] Anxiety Spasm of muscle Edilson Roberson MD 06/01/2017 [facility] Refill [id number] Edilson Roberson MD 06/02/2017 [facility] Orders Only [id number] Mixed hyperlipidemia Edilson Roberson MD 06/08/2017 [facility] Telephone [id number] Dyan Le RN 06/08/2017 [facility] Telephone [id number] Dyan Le RN 06/09/2017 [facility] Refill [id number] Spasm of muscle Anxiety Edilson Roberson MD 06/26/2017 [facility] [place] Telephone [id number] Evelyn Lomax [facility] 06/26/2017 [facility] Refill [id number] Edilson Roberson MD 06/30/2017 [facility] Refill [id number] Edilson Roberson MD 06/30/2017 [facility] Refill [id number] Edilson Roberson MD 07/01/2017 [facility] [place] Telephone [id number] [facility] 07/21/2017 [facility] Refill [id number] Edilson Roberson MD 08/03/2017 [facility] Refill [id number] Edilson Roberson MD 08/10/2017 [facility] Refill [id number] Edilson Roebrson MD 08/11/2017 [facility] Refill [id number] Edilson Roberson MD 08/16/2017 [facility] Refill [id number] Edilson Robreson MD 08/18/2017 [facility] Refill [id number] Edilson Roberson MD 08/19/2017 [facility] Refill [id number] Edilson Roberson MD 09/04/2017 [facility] Refill [id number] Edilson Roberson MD 09/04/2017 [facility] Refill [id number] Edilson Roberson MD 09/07/2017 [facility] Refill [id number] Edilson Roberson MD 09/23/2017 [facility] Refill [id number] Edilson Roberson MD 09/28/2017 [facility] Office Visit [id number] Edilson Roberson MD 10/13/2017 10/13/2017 [facility] Refill [id number] Edilson Roberson MD 11/26/2017 [facility] Refill [id number] Edilson Roberson MD 11/28/2017 [facility] [id number] ALEC GIBSON MD 11/30/2017 11/30/2017 [facility] [place] Refill [id number] Edilson Roberson MD 12/01/2017 [facility] Refill [id number] Edilson Roberson MD 12/03/2017 [facility] Office Visit [id number] Edilson Roberson MD 12/08/2017 12/08/2017 [facility] Office Visit [id number] Edilson Roberson MD 01/12/2018 01/12/2018 [facility] Decision Unit Emergency [id number] Navin Pisano MD 01/31/2018 01/31/2018 [facility] [place] Refill [id number] Edilson Roberson MD 02/15/2018 [facility] [place] Refill [id number] Edilson Roberson MD 02/16/2018 [facility] [place] Orders Only [id number] Edilson Roberson MD 02/22/2018 [facility] [place] Office Visit [id number] Edilson Roberson MD 02/22/2018 02/22/2018 [facility] [place] Office Visit [id number] Edilson Roberson MD 03/09/2018 07/08/2018 [facility] Departed Emergency Room [id number] DYLLAN PEÑALOZA MD 03/13/2018 03/13/2018 [facility] [place] Telephone [id number] Darline Roman RN 03/22/2018 [facility] [place] Office Visit [id number] Edilson Roberson MD 03/30/2018 03/30/2018 [facility] [place] Refill [id number] Darline Roman RN 04/09/2018 [facility] [place] Refill [id number] Darline Roman RN 04/21/2018 [facility] [place] Orders Only [id number] Edilson Roberson MD 04/30/2018 [facility] [place] Office Visit [id number] Edilson Roberson MD 04/30/2018 04/30/2018 [facility] [place] Refill [id number] Edilson Roberson MD 05/27/2018 [facility] Refill [id number] Edilson Roberson MD 05/30/2018 [facility] Travel [id number] 06/04/2018 [facility] [place] Office Visit [id number] Edilson Roberson MD 06/04/2018 06/04/2018 [facility] [place] Refill [id number] Edilson Roberson MD 06/30/2018 [facility] Orders Only [id number] Edilson Roberson MD 07/05/2018 [facility] Travel [id number] 07/05/2018 [facility] [place] Office Visit [id number] Edilson Roberson MD 07/05/2018 07/05/2018 [facility] [place] Office Visit [id number] Edilson Roberson MD 07/26/2018 07/26/2018 [facility] Orders Only [id number] Edilson Roberson MD 07/30/2018 [facility] Travel [id number] 08/27/2018 [facility] [place] Office Visit [id number] Edilson Roberson MD 08/27/2018 08/27/2018 [facility] Orders Only [id number] Edilson Roberson MD 09/24/2018 [facility] Travel [id number] 09/27/2018 [facility] [place] Telephone [id number] Tammy Srivastava RN 09/28/2018 [facility] [place] Refill [id number] Edilson Roberson MD 09/28/2018 [facility] Orders Only [id number] Edilson Roberson MD 10/01/2018 [facility] [place] Refill [id number] Ayaka Jaffe RN 10/01/2018 [facility] [place] Office Visit [id number] Edilson Roberson MD 10/15/2018 10/15/2018 [facility] Orders Only [id number] Edilson Roberson MD 10/22/2018 [facility] Travel [id number] 11/15/2018 [facility] Office Visit [id number] Edilson Roberson MD 11/15/2018 11/15/2018 [facility] Orders Only [id number] Edilson Roberson MD 11/19/2018 [facility] Emergency Room [id number] ASHLEY MISHRA MD 12/20/2018 12/20/2018 [facility] Procedures Procedure Code Date Perfomer Comments Source URINE DRUG SCREEN 19226 11/15/2018 [facility] CBC 85182 03/31/2018 [facility] LIPID PROFILE 96602 03/31/2018 [facility] LIVER PROFILE 52261 03/31/2018 [facility] UA CHEMISTRIES 42243 03/31/2018 [facility] UREA NITROGEN/CREA 23817 03/31/2018 [facility] ELECTROLYTES 88898 03/31/2018 [facility] GLUCOSE, FASTING 65781 03/31/2018 [facility] HEMOGLOBIN A1C 58598 03/31/2018 [facility] TSH 07095 03/31/2018 [facility] ENDOMYSIAL AB IGA 83664 03/31/2018 [facility] AMYLASE 24998 03/31/2018 [facility] LIPASE 89171 03/31/2018 [facility] B NATRIURETIC PEPT 11486 03/31/2018 [facility] HEPATITIS PANEL 15386 03/31/2018 [facility] HIV-1/HIV-2 ROUTINE SCREENING 12325 03/31/2018 [facility] GASTRIN, SERUM 06547 03/31/2018 [facility] CBC (WITHOUT DIFFERENTIAL) 49416 03/31/2018 [facility] URINALYSIS 08735 03/31/2018 [facility] UREA NITROGEN/CREATININE 45272 03/31/2018 [facility] THYROID STIMULATING HORMONE (TSH) 20427 03/31/2018 [facility] B-TYPE NATRIURETIC PEPTIDE (BNP) 80193 03/31/2018 [facility] VBG POC 58151 01/31/2018 Unknown [facility] CT ABDOMEN AND PELVIS CONTRAST 83888 01/31/[address] [facility] BMP POC 77016 01/31/2018 Unknown [facility] TROPONIN I POC 43646 01/31/2018 Unknown [facility] CBC/DIFF 29548 01/31/2018 [facility] 12 LEAD EKG 71971 01/31/2018 [facility] THROAT CULTURE 23085 05/07/2017 [facility] GROUP A STREP SCREEN 73753 05/07/2017 [facility] RAPID INFLUENZA SCREEN 85821 05/07/2017 [facility] Assessment and Plan No Data Provided for This Section Plan of Care Plan of Care Date Source Not on file 12/27/2018 [facility] Not on file 12/24/2018 [facility] Discharge Date 12/20/18 9:15pm Disposition HOME, SELF-CARE Condition at Discharge Stable Instructions/Education Provided [place] Diet - Adult Heartburn Forms Provided Work/School Excuse Prescriptions See Medication Section Referrals BREANN SAMSON MD Order Date: Call for an appointment Address: [address] [place] [address] Additional Instructions/Education TAKE PROTONIX DIRECTED FOLLOW-UP WITH WINDER FIXER, CALL FOR APPOINTMENT BLAND DIET 12/20/2018 [facility] Upcoming EncountersDateTypeSpecialtyCare TeamDescription 10/15/2018 Office Visit Family Practice Edilson Roberson MD7550 Office [facility] JESSICA Tanner [phone] (Fax) WAITLIST PATIENT: 10/21/2018 Office Visit Dermatology Edilson Roberson MD7550 Office [facility] JESSICA Tanner [phone] (Fax) rescheduled D/T clinic closed 4-12-19 10/10/2018 [facility] Upcoming EncountersDateTypeSpecialtyCare TeamDescription 08/06/2018 Lab Appointment Lab 08/10/2018 Office Visit Family Practice Edilson Roberson [id number] [place], [place] [phone] (Fax) [place] Refill 10/08/2018 Office Visit Dermatology 07/13/2018 [facility] Upcoming EncountersDateTypeSpecialtyCare TeamDescription 07/05/2018 Office Visit Family Practice Edilson Roberson [id number] [facility] , [place] [phone] (Fax) doesnt feel well 07/07/2018 Lab Appointment Lab 07/01/2018 [facility] Upcoming EncountersDateTypeSpecialtyCare TeamDescription 06/04/2018 Office Visit Family Practice Edilson Roberson [id number] [facility] , [place] [phone] (Fax) [place] 06/04/2018 Lab Appointment Lab [facility] 05/28/2018 [facility] Upcoming EncountersDateTypeSpecialtyCare TeamDescription 05/28/2018 Lab Appointment Lab Edilson Roberson [id number] [facility] , [place] [phone] (Fax) 06/04/2018 Office Visit Family Practice Edilson Roberson [id number] [facility] , [place] [phone] (Fax) [place] 05/11/2018 [facility] Upcoming EncountersDateTypeSpecialtyCare TeamDescription 05/28/2018 Lab Appointment Lab Edilson Roberson [id number] [facility] , [place] [phone] (Fax) 06/04/2018 Office Visit Family Practice Edilson Roberson [id number] [facility] , [place] [phone] (Fax) [place] 05/10/2018 [facility] Upcoming EncountersDateTypeSpecialtyCare TeamDescription 04/28/2018 Lab Appointment Lab Edilson Roberson [id number] [place] [phone] (Fax) [facility] 04/30/2018 Office Visit Family Practice Edilson Roberson [id number] [facility] [place] [phone] (Fax) [place] 04/14/2018 [facility] Discharge Date 03/13/18 4:20pm Disposition HOME, SELF-CARE Condition at Discharge Improved Instructions/Education Provided Abdominal Pain - Adult Forms Provided Work/School Excuse Prescriptions See Medication Section Referrals Edilson Roberson Additional Instructions/Education FOLLOW UP WITH GASTRO DR TAKE MEDICATIONS DIRECTED 03/13/2018 [facility] Upcoming EncountersDateTypeSpecialtyCare TeamDescription 03/09/2018 Office Visit Family [facility] Edilson Roberson [id number] [facility] [place] [phone] (Fax) 03/05/2018 [facility] Upcoming EncountersDateTypeSpecialtyCare TeamDescription 03/09/2018 Office Visit [facility] Edilson Roberson [id number] [facility] [place] [phone]) 03/03/2018 [facility] Social History Social History Date Source Smoking Status Start Date Stop Date Never Smoker 12/20/2018 [facility] Tobacco UseTypesPacks/DayYears UsedDate Never Smoker Smokeless Tobacco: Never Used Tobacco Cessation: Counseling Given: No Alcohol UseDrinks/Weekoz/WeekComments No 0 Standard drinks or equivalent 0.0 quit Food InsecurityAnswerDate Recorded Within the past 12 months, you worried that your food would run out before you got money to buy more. Never true 10/15/2018 Within the past 12 months, the food you bought just didn't last and you didn't have money to get more. 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 12/01/2018 [facility] Family History Value Date Source Medical HistoryRelationNameComments Diabetes Father Heart Father Hypertension Father Stroke Father Arthritis Mother Diabetes Mother Heart Mother Hypertension Mother RelationNameStatusComments Father Alive Mother Alive 12/27/2018 [facility] Medical HistoryRelationNameComments Diabetes Father Heart Father Hypertension Father Stroke Father Arthritis Mother Diabetes Mother Heart Mother Hypertension Mother RelationNameStatusComments Father Alive Mother Alive 12/24/2018 [facility] Medical HistoryRelationNameComments Diabetes Father Heart Father Hypertension Father Stroke Father Arthritis Mother Diabetes Mother Heart Mother Hypertension Mother RelationNameStatusComments Father Alive Mother Alive 10/10/2018 [facility] Medical HistoryRelationNameComments Diabetes Father Heart Father Hypertension Father Stroke Father Arthritis Mother Diabetes Mother Heart Mother Hypertension Mother RelationNameStatusComments Father Alive Mother Alive 07/13/2018 [facility] Medical HistoryRelationNameComments Diabetes Father Heart Father Hypertension Father Stroke Father Arthritis Mother Diabetes Mother Heart Mother Hypertension Mother RelationNameStatusComments Father Alive Mother Alive 07/01/2018 [facility] Medical HistoryRelationNameComments Diabetes Father Heart Father Hypertension Father Stroke Father Arthritis Mother Diabetes Mother Heart Mother Hypertension Mother RelationNameStatusComments Father Alive Mother Alive 05/28/2018 [facility] Medical HistoryRelationNameComments Diabetes Father Heart Father Hypertension Father Stroke Father Arthritis Mother Diabetes Mother Heart Mother Hypertension Mother RelationNameStatusComments Father Alive Mother Alive 05/11/2018 [facility] Medical HistoryRelationNameComments Diabetes Father Heart Father Hypertension Father Stroke Father Arthritis Mother Diabetes Mother Heart Mother Hypertension Mother RelationNameStatusComments Father Alive Mother Alive 05/10/2018 [facility] Medical HistoryRelationNameComments Diabetes Father Heart Father Hypertension Father Stroke Father Arthritis Mother Diabetes Mother Heart Mother Hypertension Mother RelationNameStatusComments Father Alive Mother Alive 04/14/2018 [facility] Medical HistoryRelationNameComments Diabetes Father Heart Father Hypertension Father Stroke Father Arthritis Mother Diabetes Mother Heart Mother Hypertension Mother RelationNameStatusComments Father Alive Mother Alive 03/05/2018 [facility] Medical HistoryRelationNameComments Diabetes Father Heart Father Hypertension Father Stroke Father Arthritis Mother Diabetes Mother Heart Mother Hypertension Mother RelationNameStatusComments Father Alive Mother Alive 03/03/2018 [facility] Advance Directives Order Name Results Value Date Source Advance Directives Advance Directives Directive Response Recorded Date/Time Does the patient have an advance directive? No 10/08/07 8:50pm Do you have a Directive to Physician? No 12/20/18 5:03pm Do you have a Medical Power of Four H Agent? No 12/20/18 5:03pm Do you have an out of hospital Do Not Resuscitate Order? No 12/20/18 5:03pm Do you have any special needs we should be aware of? No 12/20/18 5:03pm Do you have a support person here with you today? No 12/20/18 5:03pm Did patient receive Notice of Privacy Practices? Yes 12/20/18 5:03pm Did patient receive patient rights and responsibilities? Yes 12/20/18 5:03pm 12/20/2018 [facility] Advance Directives Advance Directives Directive Response Recorded Date/Time Does the patient have an advance directive? No 10/08/07 8:50pm If yes, is advance directive on file with [facility]? No 10/08/07 8:50pm If not on file with [facility] will patient provide a copy? No 11/30/17 3:37pm Do you have a Directive to Physician? No 03/13/18 1:33pm Do you have a Medical Power of Four H Agent? No 03/13/18 1:33pm Do you have an out of hospital Do Not Resuscitate Order? No 03/13/18 1:33pm Do you have any special needs we should be aware of? No 03/13/18 1:33pm Do you have a support person here with you today? No 03/13/18 1:33pm Did patient receive Notice of Privacy Practices? Yes 03/13/18 1:33pm Did patient receive patient rights and responsibilities? Yes 03/13/18 1:33pm 03/13/2018 [facility] Functional Status No Data Provided for This Section
--- OUTSIDE RECORDS SUMMARY | 2019-03-24 17:01 | XMS REPORT | Clinical Summary ---
Author Author [facility] Organization [facility] Address Unknown Phone Unavailable Care Team Providers Care Cloth Examiner Machine Name Role Phone Edilson Roberson MD PCP [...] sciatica laterality Pain. unspecified, Pain management Active imiquimod (ALDARA) 5 % Apply 1 12 Each 2 topical cream Packet to 9 packetIndications: Other affected area viral warts 3 times weekly. Active nystatin (MYCOSTATIN) APPLY 60 g 9 topical creamIndications: TOPICALLY TO 9 Tinea AFFECTED AREA TWICE DAILY. Active HYDROcodone-acetaminophen Take 1 tablet 120 tablet [...] 9 of muscle THREE TIMES DAILY NEEDED. 07/26/2018 Discontinued amoxicillin (AMOXIL) 500 Take 1 30 capsule 0 mg capsuleIndications: capsule by 7 Infection mouth 3 times daily for 10 days. 07/05/2018 Discontinued ergocalciferol (VITAMIN Take 1 12 capsule 2 D2) 50,000 unit capsule by 7 capsuleIndications: mouth weekly. Hypovitaminosis D 06/04/2018 Discontinued benzonatate (TESSALON) TAKE 2 90 capsule 0 100 mg CAPSULES BY 8 capsuleIndications: Cough MOUTH THREE TIMES DAILY NEEDED FOR COUGH 06/04/2018 Discontinued atorvastatin (LIPITOR) 40 Take 1 [...] WHEEZING OR acute exacerbation SHORTNESS OF BREATH 01/12/2018 Discontinued carisoprodol 350 mg TAKE 1 [...] Tinea AFFECTED AREA TWICE DAILY. 06/04/2018 Discontinued Omeprazole 40 mg Take 1 [...] for back pain with Pain. right-sided sciatica 10/15/2018 Discontinued carisoprodol 350 mg TAKE 1 TABLET 90 tablet 2 tabletIndications: Spasm BY MOUTH 9 of muscle THREE TIMES DAILY NEEDED. 09/03/2018 mupirocin (BACTROBAN) 2 % Apply to 22 g 2 ointmentIndications: Skin affected area 9 infection 3 times daily for 7 days. 10/15/2018 Discontinued nystatin (MYCOSTATIN) APPLY 60 g 9 topical creamIndications: TOPICALLY TO 9 Tinea AFFECTED AREA TWICE DAILY. 10/15/2018 Discontinued HYDROcodone-acetaminophen Take 1 tablet 120 tablet 0 (NORCO) 10-325 mg by mouth 9 tabletIndications: every 6 hours Chronic left-sided low as needed for back pain with Pain. right-sided sciatica, Bilateral leg pain 10/01/2018 Discontinued traMADol (ULTRAM) 50 mg Take 1 tablet 120 tablet 0 tabletIndications: by mouth 9 Chronic left-sided low every 6 hours back pain with sciatica, as needed for sciatica laterality Pain. unspecified, Pain management 10/15/2018 Discontinued traMADol (ULTRAM) 50 mg Take 1 tablet 120 tablet 0 tabletIndications: by mouth 9 Chronic left-sided low every 6 hours back pain with sciatica, as needed for sciatica laterality Pain. unspecified, Pain management 11/15/2018 Discontinued HYDROcodone-acetaminophen Take 1 tablet 120 tablet 0 (NORCO) 10-325 mg by mouth 9 tabletIndications: every 6 hours Chronic left-sided low as needed for back pain with Pain. right-sided sciatica, Bilateral leg pain 11/15/2018 Discontinued traMADol (ULTRAM) 50 mg Take 1 tablet 120 tablet 0 tabletIndications: by mouth 9 Chronic left-sided low every 6 hours back pain with sciatica, as needed for sciatica laterality Pain. unspecified, Pain management 11/15/2018 Discontinued carisoprodol 350 mg TAKE 1 TABLET 90 tablet 2 tabletIndications: Spasm BY MOUTH 9 of muscle THREE TIMES DAILY NEEDED. Status Hospital, Clinic, or Ordered Dose Route Frequency Start End Date Other Facility Date Administered Medication Ended triamcinolone acetonide 40 mg IM ONCE [...] pain with sciatica, sciatica laterality unspecified Ended ketorolac (TORADOL) 60 mg IM ONCE 10/16/19 injection 60 19 9 mgIndications: Bilateral leg pain, Chronic left-sided low back pain with sciatica, sciatica laterality unspecified Active Problems Problem Noted Date Dysphagia 05/22/2017 Knee pain 10/19/2014 Overview: 10/19/14-received request for MRI of the L Knee related to DJD, knee pain 04/07, from Dr. Edilson Berry office on this patient with [employer] HMO; request authorization from [facility]; awaiting authorization. Diane Plasencia [id number] 10/27/14-spoke to Michael Pisano/[facility] Preauthorization Department [phone], gave the auth # [id number] effective 10/24/14-12/22/14 to a facility: [facility] [phone]/fax#: [phone]; spoke to Dc/[facility] and scheduled patient 11/01/2014@17:45 PM; message left x2, at patients voicemail advising of the scheduled appointment. Diane Plasencia [id number] 11/08/14-received a fax from Jayne Kamniski/[facility] [phone]/tel [phone] informing that the patient has cancelled the exam with their location and had exam done somewhere else; called patient x2, left messages on his voice mail, advising to call back for further information; authorization from [employer] was for [facility]; unknown where the patient went. Diane Plasencia [id number] 11/10/14-message left advising to call back; name of the facility for MRI is needed for authorization from [employer]. Diane Plasencia [id number] 11/13/14-per patient he could not remember the name of the facility; he will ask his later. Diane Plasencia [id number] 11/27/14-per patient he couldn't remember the name of the facility; per patients , she is not at home, she will call back to give us the name of the facility. Diane Plasencia [id number] 12/19/14 - Case closed. Patient had MRI done @ own choice location. Documentation noted in record. 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 Edilson Roberson MD Chronic left-sided low back pain with sciatica, sciatica laterality unspecified; Pain management 10/01/2018 Orders Only [facility] Ayaka Jaffe RN Chronic left-sided low back pain with sciatica, sciatica laterality unspecified; Pain management 10/01/2018 Refill Family Practice Tammy Srivastava, RN Refill Request 09/28/2018 Telephone 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; Chronic left-sided low back pain with sciatica, sciatica laterality unspecified; Spasm of muscle; Tinea; Skin infection 08/27/2018 Office Visit Family Practice 08/27/2018 Edilson Vaz MD Pain management [...] Pain management 06/30/2018 Refill Family Practice Edilson oRberson MD Infection (Primary Dx); Chronic left-sided low [...] Roberson MD Spasm of muscle 05/27/2018 Refill Family Practice Edilson Roberson MD Pain management (Primary Dx); 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; Tinea; Spasm of muscle 04/30/2018 Office Visit Family Practice Edilson Roberson MD Pain management 04/30/2018 Orders Only Family Practice Darline Roman RN Chronic left-sided low back pain with sciatica, sciatica laterality unspecified; Pain management 04/21/2018 Refill Family Practice Darline Roman RN Spasm of muscle 04/09/2018 Refill Family Practice Edilson Roberson MD Encounter for vaccination (Primary Dx); GI problem; Belching; Abdominal fullness; Gastroesophageal reflux disease with esophagitis; Aerophagia; Bronchospasm 03/30/2018 Office Visit Family Practice Darline Roman RN Results 03/22/2018 Telephone [facility] Edilson Roberson MD Chronic left-sided low back pain with sciatica, sciatica laterality unspecified; Pain management; Spasm of muscle; 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 03/09/2018 Office Visit [facility] Edilson Roberson MD Infection (Primary Dx); Chronic left-sided low back pain with sciatica, sciatica laterality unspecified; Pain management; Spasm of muscle; 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; Tinea 02/22/2018 Office Visit [facility] Edilson Roberson MD Pain management 02/22/2018 Orders Only [facility] Edilson Roberson MD 02/16/2018 Refill [facility] Edilson Roberson MD Chronic left-sided low back pain with sciatica, sciatica laterality unspecified; Pain management; Spasm of muscle 02/15/2018 Refill [facility] Navin Pisano MD Gastroesophageal reflux disease with [...] Gastritis and gastroduodenitis; Anxiety 01/12/2018 Office Visit Family Practice after 12/23/2017 Immunizations Name Administration Dates Next Due Albuterol 0.083% (3ml) 12/28/2015, 12/14/2015 [...] Never Used Tobacco Cessation: Counseling Given: No Drinks/Week oz/Week Comments Alcohol Use 0 Standard drinks or equivalent 0.0 quit No Food Insecurity Answer Date Recorded Within the past 12 months, you worried that your Never true 10/15/2018 food would run out before you got money to buy more. Within the past 12 months, the food you bought Never true 10/15/2018 just didn't last and you didn't have money to get more. Sex Assigned at Date Recorded Not on file Industry Job Start Date Occupation Not on file Not on file Not on file Travel End Travel History Travel Start No recent travel history available. Last Filed Vital Signs Reading Time Taken Comments Vital Sign 124/80 11/15/2018 9:57 AM CDT Blood Pressure 68 11/15/2018 9:57 AM CDT Pulse 36.6 C (97.8 F) 11/15/2018 9:57 AM CDT Temperature 20 11/15/2018 9:57 AM CDT Respiratory Rate 99% 11/15/2018 9:57 AM CDT 3% Oxygen Saturation - - Inhaled Oxygen Concentration 124.3 kg (274 lb) 11/15/2018 9:57 AM CDT Weight 167.6 cm (5' 6") 11/15/2018 9:57 AM CDT Height 44.22 11/15/2018 9:57 AM CDT Body Mass Index Plan of Treatment Not on file Goals Goal Patient Associated Recent Progress Patient-Stat Author Goal Type Problems ed? Feel more energetic Lifestyle No Eugenia Madera, Talent Assistant Reduce pain Lifestyle Yes Diane Madera Eat Healthy Lifestyle Yes Diane Madera Procedures Comments Procedure Name Priority Date/Time Associated Diagnosis URINE DRUG SCREEN Routine 11/15/2018 Pain management 9:25 AM CDT URINE DRUG SCREEN Routine 09/27/2018 Pain management 10:14 AM CDT URINE DRUG SCREEN Routine 06/04/2018 Pain management 1:09 PM BLOCK SAWYER URINE DRUG SCREEN Routine 04/30/2018 Pain management [...] fullness Gastroesophageal reflux disease with esophagitis Aerophagia B-TYPE NATRIURETIC Routine 03/30/2018 Encounter for vaccination PEPTIDE (BNP) 3:00 PM CDT GI problem Belching Abdominal [...] fullness Gastroesophageal reflux disease with esophagitis Aerophagia THYROID STIMULATING Routine 03/30/2018 Encounter for vaccination HORMONE (TSH) 3:00 PM CDT GI problem Belching Abdominal [...] Gastroesophageal reflux disease with esophagitis Aerophagia UREA NITROGEN/CREATININE Routine 03/30/2018 Encounter for vaccination 3:00 PM CDT GI problem Belching Abdominal fullness Gastroesophageal reflux disease with esophagitis Aerophagia URINALYSIS Routine 03/30/2018 Encounter for vaccination 3:00 PM CDT GI problem Belching Abdominal fullness Gastroesophageal reflux disease with esophagitis Aerophagia LIVER PROFILE Routine 03/30/2018 Encounter for vaccination 3:00 PM CDT GI problem Belching Abdominal fullness Gastroesophageal reflux disease with esophagitis Aerophagia LIPID PROFILE Routine 03/30/2018 Encounter for vaccination 3:00 PM CDT GI problem Belching Abdominal fullness Gastroesophageal reflux disease with esophagitis Aerophagia CBC (WITHOUT Routine 03/30/2018 Encounter for vaccination DIFFERENTIAL) 3:00 PM CDT GI problem Belching Abdominal fullness Gastroesophageal reflux disease with esophagitis Aerophagia URINE DRUG SCREEN STAT 02/22/2018 Pain management 9:43 AM CDT VBG POC Routine 01/31/2018 5:[address] ABDOMEN AND PELVIS Routine 01/31/2018 Abdominal complaints CONTRAST 5:03 AM CDT URINALYSIS STAT 01/31/2018 3:50 AM CDT BMP POC Routine 01/30/2018 4:09 PM CDT TROPONIN I POC Routine 01/30/2018 4:07 PM CDT HIV-1/HIV-2 ROUTINE STAT 01/30/2018 SCREENING 4:01 PM CDT LIPASE STAT 01/30/2018 4:01 PM CDT LIVER PROFILE STAT 01/30/2018 4:01 PM CDT CBC/DIFF STAT 01/30/2018 4:01 PM CDT 12 LEAD EKG Routine 01/30/2018 3:56 PM CDT after 12/23/2017 Results * URINE DRUG SCREEN (11/15/2018 9:25 AM CDT) Only the most recent of 5 results within the time period is included. Amphetamine Negative NEG BT MAIN-STATION Comment: 1 Calibrated Standard: D-Methamphetamine Positive if urine level >rt=3057 ng/mL Test performed on [id number] using EMIT Immunoassay Barbiturate Negative NEG BT MAIN-STATION Comment: 1 Calibrated Standard: Secobarbital Positive if urine level is >qm=071 ng/mL Test performed on [id number] using EMIT Immunoassay Benzodiazepine Negative NEG BT MAIN-STATION Comment: 1 Calibrated Standard: Lormethazepam Positive if urine level is >lp=473 ng/mL Test performed on [id number] using EMIT Immunoassay Cannabinoid Negative NEG BT MAIN-STATION Comment: 1 Calibrated Standard: 11 nor-delta(9)-THC carboxylic a Positive if urine level >or=50 Test performed on [id number] using EMIT Immunoassay Cocaine Negative NEG BT MAIN-STATION Comment: 1 Calibrated Standard: Benzoylecgonine Positive if urine level >vx=179 Test performed on [id number] using EMIT Immunoassay Opiate, Ur Negative NEG BT MAIN-STATION Comment: 1 Calibrated Standard: Morphine Positive if urine level >ic=019 Test performed on [id number] using EMIT Immunoassay PCP Negative NEG BT MAIN-STATION Comment: 1 Calibrated Standard: Phencyclidine Positive if urine level >or=25 Test performed on [id number] using EMIT Immunoassay Urine Toxicology Screen results are to be used only for Medical purposes. Specimen Urine Performing Organization Address [facility] Phone Number Perk MAIN-STATION 1 * HIV-1/HIV-2 ROUTINE SCREENING (03/30/2018 3:00 PM CDT) Only the most recent of 2 results within the time period is included. HIV-1/HIV-2 Negative NEG BT MAIN-STATION 3 Specimen Performing Organization Address [facility] Phone Number Perk MAIN-STATION 3 * GASTRIN, SERUM (03/30/2018 3:00 PM CDT) Gastrin, Serum 25 LABORATORY Reference range: 0 to 115 CORPORATION OF Unit: pg/mL RAMO (note) Siemens Immulite 2000 Immunochemiluminometric assay (ICMA) Specimen Blood Performing Organization Address [facility] Phone Number Perk LABORATORY CORPORATION OF [address] [place] [address] RAMO 145 * HEMOGLOBIN A1C (03/30/2018 3:00 PM CDT) Hemoglobin A1c 5.4 4.3 - 6.1 % BT DIAGNOSTIC IMMUNOLOGY Est Average 108.3 mg/dL BT DIAGNOSTIC Gluc IMMUNOLOGY Specimen Blood Performing Organization Address [facility] Phone Number Perk DIAGNOSTIC IMMUNOLOGY * B-TYPE NATRIURETIC PEPTIDE (BNP) (03/30/2018 3:00 PM CDT) B Natriuretic 25 <101 pg/mL BT MAIN-STATION Pept 1 Specimen Blood Performing Organization Address [facility] Phone Number MISMEENAKSHI BT MAIN-STATION 1 * ENDOMYSIAL AB IGA (03/30/2018 3:00 PM CDT) Endomysial Negative LABORATORY Antibody IgA Reference range: Negative [facility] Specimen Blood Performing Organization Address [place]/[facility] Phone Number [facility] [address] [place] [phone] RAMO 145 * TSH (03/30/2018 3:00 PM CDT) TSH 0.94 0.57 - 3.74 uIU/mL BT MAIN-STATION 1 Specimen Blood Performing Organization Address [facility] Phone Number PRICILLA BT MAIN-STATION 1 * UA CHEMISTRIES (03/30/2018 3:00 PM CDT) Only the most recent of 2 results within the time period is included. Color Yellow BT MAIN-STATION 4 Clarity Clear BT MAIN-STATION 4 Specific 1.010 1.001 - 1.035 BT MAIN-STATION [place] 4 pH 7.0 5 - 8 BT MAIN-STATION 4 Protein Negative NEG BT MAIN-STATION 4 Glucose Negative NEG BT MAIN-STATION 4 Ketones Negative NEG BT MAIN-STATION 4 Bilirubin Negative NEG BT MAIN-STATION 4 Nitrate Negative NEG BT MAIN-STATION 4 Urobilinogen,Se <1.0 0.2 - 1.0 EU/dL BT MAIN-STATION mi-Qn 4 Leukocyte Negative NEG BT MAIN-STATION 4 Occult Blood Negative NEG BT MAIN-STATION 4 Specimen Urine Performing Organization Address [facility] Phone Number PRICILLA BT MAIN-STATION 4 * ELECTROLYTES (03/30/2018 3:00 PM CDT) Sodium 138 136 - 145 mmol/L BT MAIN-STATION 1 Potassium 3.8 3.5 - 5.1 mmol/L BT MAIN-STATION 1 Chloride 100 98 - 107 mmol/L BT MAIN-STATION 1 CO2 29 21 - 31 mmol/L BT MAIN-STATION 1 Anion Gap 9 BT MAIN-STATION 1 Specimen Blood Performing Organization Address [facility] Phone Number MISYS BT MAIN-STATION 1 * LIVER PROFILE (03/30/2018 3:00 PM CDT) Only the most recent of 2 results within the time period is included. Protein, Total, 6.1 6.0 - 8.3 g/dL BT MAIN-STATION Serum 1 Albumin 3.7 (L) 4.2 - 5.5 g/dL BT MAIN-STATION 1 Bilirubin, 0.8 0.2 - 1.2 mg/dL BT MAIN-STATION Total 1 Alkaline 56 34 - 104 U/L BT MAIN-STATION Phosphatase, S 1 AST (SGOT) 12 (L) 13 - 39 U/L BT MAIN-STATION 1 ALT 13 7 - 52 U/L BT MAIN-STATION 1 D Bilirubin 0.2 0.0 - 0.2 mg/dL BT MAIN-STATION 1 Specimen Blood Performing Organization Address [facility] Phone Number MISYS MAIN-STATION 1 * LIPID PROFILE (03/30/2018 3:00 PM CDT) Cholesterol 125 mg/dL BT MAIN-STATION Comment: 1 REFERENCE RANGE: Desirable: <200 mg/dL Borderline: 200-240 mg/dL High Risk: >240 mg/dL Triglyceride 62 <150 mg/dL BT MAIN-STATION Comment: 1 REFERENCE RANGE: Normal: <150 mg/dL Borderline High: 150-199 mg/dL High: 200-499 mg/dL Very High: >sh=735 mg/dL HDL 40 mg/dL BT MAIN-STATION Comment: 1 Increased CHD risk: <40 mg/dL Decreased CHD risk: >60 mg/dL LDL 73 mg/dL BT MAIN-STATION Comment: 1 REFERENCE RANGE: Optimal: <100 mg/dL Near Optimal: 100-129 mg/dL Borderline High: 130-159 mg/dL High: 160-189 mg/dL Very High: >ns=026 mg/dL Specimen Blood Performing Organization Address [facility] Phone Number MISYS BT MAIN-STATION 1 * LIPASE (03/30/2018 3:00 PM CDT) Only the most recent of 2 results within the time period is included. Lipase 16 11 - 82 U/L BT MAIN-STATION 1 Specimen Blood Performing Organization Address [facility] Phone Number MISYS BT MAIN-STATION 1 * HEPATITIS PANEL (03/30/2018 3:00 PM CDT) HCV IgG Negative NEG BT MAIN-STATION 3 HBsAg Negative NEG BT MAIN-STATION 3 HAV, IgM Negative NEG BT MAIN-STATION 3 HBcAb, IgM Negative NEG BT MAIN-STATION 3 Specimen Blood Performing Organization Address [facility] Phone Number MISYS BT MAIN-STATION 3 * GLUCOSE, FASTING (03/30/2018 3:00 PM CDT) Pathologist [facility] Glucose, 90 74 - 106 mg/dL BT MAIN-STATION Fasting 1 Specimen Blood Performing Organization Address [facility] Phone Number MISYS BT MAIN-STATION [...] 35.1 - 43.9 fL BT MAIN-STATION 2 Platelets 153 150 - 400 K/uL BT MAIN-STATION 2 Mean Platelet 11.2 9.4 - 12.4 fL BT MAIN-STATION Volume 2 Percent NRBC 0.0 BT MAIN-STATION 2 Absolute NRBC 0.00 BT MAIN-STATION 2 Specimen Blood Performing Organization Address [facility] Phone Number MISYS BT MAIN-STATION 2 * UREA NITROGEN/CREA (03/30/2018 3:00 PM CDT) BUN 14 7 - 25 mg/dL BT MAIN-STATION 1 Creatinine 0.80 0.7 - 1.3 mg/dL BT MAIN-STATION 1 GFR, Estimated >60 mL/min/1.73 m2 BT MAIN-STATION 1 eGFR If Africn >60 mL/min/1.73 m2 BT MAIN-STATION Am 1 Specimen Other (Specify in Comments) Performing Organization Address [facility] Phone Number MISYS BT MAIN-STATION 1 * AMYLASE (03/30/2018 3:00 PM CDT) Amylase 38 29 - 103 U/L BT MAIN-STATION 1 Specimen Blood Performing Organization Address [facility] Phone Number MISYS BT MAIN-STATION 1 * [...] 21 - 32 mmol/L BT MAIN-STATION 1 Specimen Performing Organization Address [facility] Phone Number MISYS BT MAIN-STATION 1 * CT ABDOMEN AND PELVIS CONTRAST (01/31/2018 5:03 AM CDT) Specimen Impressions Performed At IMPRESSION: SMS No acute [...] mL/min/1.73 m2 BT MAIN-STATION Afr-Am 1 Specimen Performing Organization Address City/State/Zipcode Phone Number MISYS BT MAIN-STATION 1 * TROPONIN I POC (01/30/2018 4:07 PM CDT) Troponin POC 0.00Comment: Physician 0.00 - 0.08 ng/mL BT MAIN-STATION Notified 1 Specimen Performing Organization Address City/State/Zipcode Phone Number MISYS [...] 35.1 - 43.9 fL BT MAIN-STATION 2 Platelets 138 (L) 150 - 400 K/uL BT MAIN-STATION 2 Mean Platelet 10.6 9.4 - 12.4 fL BT MAIN-STATION Volume 2 Percent NRBC 0.0 BT MAIN-STATION 2 Absolute NRBC 0.00 BT MAIN-STATION 2 Neutrophils 82.3 (H) 34.0 - 67.9 % BT MAIN-STATION 2 Lymphs 11.7 (L) 21.8 - 50.0 % BT MAIN-STATION 2 Monocytes 5.5 5.3 - 12.0 % BT MAIN-STATION 2 Eos 0.2 (L) 0.8 - 5.0 % BT MAIN-STATION 2 Basos 0.1 (L) 0.2 - 1.2 % BT MAIN-STATION 2 Immature 0.2 0.0 - 0.5 BT MAIN-STATION Granulocytes 2 Neutrophils 6.89 (H) 1.78 - 5.36 K/uL BT MAIN-STATION (Absolute) 2 Lymphs 0.98 (L) 1.32 - 3.57 K/uL BT MAIN-STATION (Absolute) 2 Monocytes(Absol 0.46 0.30 - 0.82 K/uL BT MAIN-STATION [place]) 2 Eos (Absolute) 0.02 (L) 0.04 - 0.54 K/uL BT MAIN-STATION 2 Baso (Absolute) 0.01 0.01 - 0.08 K/uL BT MAIN-STATION 2 Immature Grans 0.02 0.00 - 0.03 K/uL BT MAIN-STATION (Abs) 2 Specimen Blood Performing Organization Address City/State/Zipcode Phone Number MISYS BT MAIN-STATION 2 * 12 LEAD EKG (01/30/2018 3:56 PM CDT) [address] 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: [id number] :[id number]- Requested By: Order Number: Daniele vang MD: Carmen Joseph Measurements Intervals [place] Rate: 60 P:-11 ME: 165 QRS: -21 QRSD: 94 T:43 QT: 368 QTc:370 Interpretive Statements SINUS RHYTHM BORDERLINE LEFT AXIS DEVIATION LOW QRS VOLTAGE IN PRECORDIAL LEADS PATTERN CONSISTENT WITH PULMONARY DISEASE INCOMPLETE RIGHT BUNDLE BRANCH BLOCK Electronically Signed On 01-30-18 16:17:20 CDT by Carmen Joseph Specimen Performing Organization Address City/State/Zipcode Phone Number SMS after 12/23/2017 Insurance Type Payer Benefit Subscriber ID Effective Phone Address Plan / Dates Group [employer] [facility]P [phone] [address] [address] [place] [address]
--- OUTSIDE RECORDS SUMMARY | 2019-03-24 17:02 | XMS REPORT | Clinical Summary ---
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 Diane Plasencia [id number] 10/27/14-spoke to Michael Pisano/[facility] Preauthorization Department [phone], gave the auth # [id number] effective 10/24/14-12/22/14 to a facility: [facility] [phone]/fax#: [phone]; spoke to Dc/[facility] and scheduled patient 11/01/2014@17:45 PM; message left x2, at patients voicemail advising of the scheduled appointment. Diane Plasencia [id number] 11/08/14-received a fax from Jayne Kaminski/[facility] [phone]/tel [phone] informing that the patient has cancelled the exam with their location and had exam done somewhere else; called patient x2, left messages on his voice mail, advising to call back for further information; authorization from [employer] was for [facility]; unknown where the patient went. Diane Plasencia [id number] 11/10/14-message left advising to call back; name of the facility for MRI is needed for authorization from [employer]. Diane Plasencia [id number] 11/13/14-per patient he could not remember the name of the facility; he will ask his later. Diane Plasencia [id number] 11/27/14-per patient he couldn't remember the name of the facility; per patients , she is not at home, she will call back to give us the name of the facility. Diane Plasencia [id number] 12/19/14 - Case closed. Patient had MRI done @ own choice location. Documentation noted in record. Ivanna Quintana RN # [id number] Skin tags 12/06/2007 Somatization disorder 07/31/2007 BORDERLINE [...] Spasm of muscle; Tinea 10/15/2018 Office Visit [facility] Edilson Roberson MD Chronic left-sided low back pain with sciatica, sciatica laterality unspecified; Pain management 10/01/2018 Orders Only [facility] Ayaka Jaffe RN Chronic left-sided low back pain with sciatica, sciatica laterality unspecified; Pain management 10/01/2018 Refill Family Practice Tammy Srivastava, RN Refill Request 09/28/2018 Telephone [facility] Edilson Roberson MD Bilateral leg pain (Primary Dx); 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 09/28/2018 Refill Family Practice 09/27/2018 Edilson Vaz MD Pain management 09/24/2018 Orders Only [facility] Edilson Roberson MD Other viral warts [...] Practice Darline Roman RN Results 03/22/2018 Telephone [facility] Edilson Roberson MD Chronic left-sided low back pain with sciatica, sciatica laterality unspecified; Pain management; Spasm of muscle; 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 03/09/2018 Office Visit [facility] Edilson Roberson MD Infection (Primary Dx); Chronic left-sided low back pain with sciatica, sciatica laterality unspecified; Pain management; Spasm of muscle; 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; Tinea 02/22/2018 Office Visit [facility] Edilson Roberson MD Pain management 02/22/2018 Orders Only [facility] Edilson Roberson MD 02/16/2018 Refill [facility] Edilson Roberson MD Chronic left-sided low back pain with sciatica, sciatica laterality unspecified; Pain management; Spasm of muscle 02/15/2018 Refill [facility] Navin Psiano MD Gastroesophageal reflux disease with esophagitis (Primary [...] Anxiety 01/12/2018 Office Visit Family Practice after 12/26/2017 Immunizations Name Administration Dates Next Due Albuterol [...] Feel more energetic Lifestyle No 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 Madera, 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 Inspector Reduce pain Lifestyle Yes Diane Madera Eat Healthy Lifestyle Yes Diane Madera Procedures Comments Procedure Name Priority Date/Time Associated Diagnosis URINE DRUG SCREEN Routine 11/15/2018 Pain management 9:25 AM CDT URINE DRUG SCREEN Routine 09/27/2018 Pain management 10:14 AM CDT URINE DRUG SCREEN Routine 06/04/2018 Pain management 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 Amphetamine Negative NEG BT MAIN-STATION Comment: 1 Calibrated Standard: D-Methamphetamine Positive if urine level >xf=3698 ng/mL Test performed on [id number] using EMIT Immunoassay Barbiturate Negative NEG BT MAIN-STATION Comment: 1 Calibrated Standard: Secobarbital Positive if urine level is >gw=053 ng/mL Test performed on [id number] using EMIT Immunoassay Benzodiazepine Negative NEG BT MAIN-STATION Comment: 1 Calibrated Standard: Lormethazepam Positive if urine level is >ya=654 ng/mL Test performed on [id number] using EMIT Immunoassay Cannabinoid Negative NEG BT MAIN-STATION Comment: 1 Calibrated Standard: 11 nor-delta(9)-THC carboxylic a Positive if urine level >or=50 Test performed on [id number] using EMIT Immunoassay Cocaine Negative NEG BT MAIN-STATION Comment: 1 Calibrated Standard: Benzoylecgonine Positive if urine level >pf=152 Test performed on [id number] using EMIT Immunoassay Opiate, Ur Negative NEG BT MAIN-STATION Comment: 1 Calibrated Standard: Morphine Positive if urine level >ii=935 Test performed on [id number] using EMIT Immunoassay PCP Negative NEG BT MAIN-STATION Comment: 1 Calibrated Standard: Phencyclidine Positive if urine level >or=25 Test performed on [id number] using EMIT Immunoassay Urine Toxicology Screen results are to be used only for Medical purposes. Specimen Urine Performing Organization Address [facility] Phone Number [employer] MAIN-STATION 1 * HIV-1/HIV-2 ROUTINE SCREENING (03/30/2018 3:00 PM CDT) Only the most recent of 2 results within the time period is included. HIV-1/HIV-2 Negative NEG BT MAIN-STATION 3 Specimen Performing Organization Address [facility] Phone Number [employer] MAIN-STATION 3 * GASTRIN, SERUM (03/30/2018 3:00 PM CDT) Gastrin, Serum 25 LABORATORY Reference range: 0 to 115 CORPORATION OF Unit: pg/mL RAMO (note) Siemens Immulite 2000 Immunochemiluminometric assay (ICMA) Specimen Blood Performing Organization Address [facility] Phone Number [employer] LABORATORY CORPORATION OF [address] [facility] [place] [address] RAMO 145 * HEMOGLOBIN A1C (03/30/2018 3:00 PM CDT) Hemoglobin A1c 5.4 4.3 - 6.1 % BT DIAGNOSTIC IMMUNOLOGY Est Average 108.3 mg/dL BT DIAGNOSTIC Gluc IMMUNOLOGY Specimen Blood Performing Organization Address [facility] Phone Number [employer] DIAGNOSTIC IMMUNOLOGY * B-TYPE NATRIURETIC PEPTIDE (BNP) (03/30/2018 3:00 PM CDT) B Natriuretic 25 <101 pg/mL BT MAIN-STATION Pept 1 Specimen Blood Performing Organization Address [place] Phone Number MISMEENAKSHI BT MAIN-STATION 1 * ENDOMYSIAL AB IGA (03/30/2018 3:00 PM CDT) Endomysial Negative LABORATORY Antibody IgA Reference range: Negative [facility] Specimen Blood Performing Organization Address [place]/[facility] Phone Number [facility] OF [address] [place] [id number] RAMO 145 * TSH (03/30/2018 3:00 PM CDT) TSH 0.94 0.57 - 3.74 uIU/mL BT MAIN-STATION 1 Specimen Blood Performing Organization Address [facility] Phone Number PRICILLA BT MAIN-STATION 1 * UA CHEMISTRIES (03/30/2018 3:00 PM CDT) Only the most recent of 2 results within the time period is included. Color Yellow BT MAIN-STATION 4 Clarity Clear BT MAIN-STATION 4 Specific 1.010 1.001 - 1.035 BT MAIN-STATION [place] 4 pH 7.0 5 - 8 BT [...] MAIN-STATION 4 Specimen Urine Performing Organization Address [facility] Phone Number PRICILLA BT MAIN-STATION 4 * ELECTROLYTES (03/30/2018 3:00 PM CDT) Sodium 138 136 - 145 mmol/L BT MAIN-STATION 1 Potassium 3.8 3.5 - 5.1 mmol/L BT MAIN-STATION 1 Chloride 100 98 - 107 mmol/L BT MAIN-STATION 1 CO2 29 21 - 31 mmol/L BT MAIN-STATION 1 Anion Gap 9 BT MAIN-STATION 1 Specimen Blood Performing Organization Address [facility] Phone Number MISYS BT MAIN-STATION 1 * [...] MAIN-STATION 1 Specimen Blood Performing Organization Address [facility] Phone Number MISYS MAIN-STATION 1 * LIPID PROFILE (03/30/2018 3:00 PM CDT) Cholesterol 125 mg/dL BT MAIN-STATION Comment: 1 REFERENCE RANGE: Desirable: <200 mg/dL Borderline: 200-240 mg/dL High Risk: >240 mg/dL Triglyceride 62 <150 mg/dL BT MAIN-STATION Comment: 1 REFERENCE RANGE: Normal: <150 mg/dL Borderline High: 150-199 mg/dL High: 200-499 mg/dL Very High: >vk=285 mg/dL HDL 40 mg/dL BT MAIN-STATION Comment: 1 Increased CHD risk: <40 mg/dL Decreased CHD risk: >60 mg/dL LDL 73 mg/dL BT MAIN-STATION Comment: 1 REFERENCE RANGE: Optimal: <100 mg/dL Near Optimal: 100-129 mg/dL Borderline High: 130-159 mg/dL High: 160-189 mg/dL Very High: >hc=352 mg/dL Specimen Blood Performing Organization Address [facility] Phone Number MISYS BT MAIN-STATION 1 * LIPASE (03/30/2018 3:00 PM CDT) Only the most recent of 2 results within the time period is included. Lipase 16 11 - 82 U/L BT MAIN-STATION 1 Specimen Blood Performing Organization Address [facility] Phone Number MISYS BT MAIN-STATION 1 * HEPATITIS PANEL (03/30/2018 3:00 PM CDT) HCV IgG Negative NEG BT MAIN-STATION 3 HBsAg Negative NEG BT MAIN-STATION 3 HAV, IgM Negative NEG BT MAIN-STATION 3 HBcAb, IgM Negative NEG BT MAIN-STATION 3 Specimen Blood Performing Organization Address [facility] Phone Number MISYS BT MAIN-STATION 3 * GLUCOSE, FASTING (03/30/2018 3:00 PM CDT) Pathologist [facility] Glucose, 90 74 - 106 mg/dL BT MAIN-STATION Fasting 1 Specimen Blood Performing Organization Address [facility] Phone Number MISYS BT MAIN-STATION [...] MAIN-STATION 2 Specimen Blood Performing Organization Address [facility] Phone Number MISYS BT MAIN-STATION 2 * UREA NITROGEN/CREA (03/30/2018 3:00 PM CDT) BUN 14 7 - 25 mg/dL BT MAIN-STATION 1 Creatinine 0.80 0.7 - 1.3 mg/dL BT MAIN-STATION 1 GFR, Estimated >60 mL/min/1.73 m2 BT MAIN-STATION 1 eGFR If Africn >60 mL/min/1.73 m2 BT MAIN-STATION Am 1 Specimen Other (Specify in Comments) Performing Organization Address [facility] Phone Number MISYS BT MAIN-STATION 1 * AMYLASE (03/30/2018 3:00 PM CDT) Amylase 38 29 - 103 U/L BT MAIN-STATION 1 Specimen Blood Performing Organization Address [facility] Phone Number MISYS BT MAIN-STATION 1 * [...] BT MAIN-STATION 1 Specimen Performing Organization Address [facility] Phone Number MISYS BT MAIN-STATION [...] 3:56 PM CDT) 12 LEAD EKG FOR [facility] Test Date:2018-01-30 Pat Name: REINIER HEMPHILL Department: Room: Gender: M 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: [id number] :[id number] Requested By: Order Number: Daniele vang MD: Carmen Joesph Measurements Intervals [place] Rate: 60 P:-11 IA: 165 QRS: -21 QRSD: 94 T:43 QT: 368 QTc:370 Interpretive Statements SINUS RHYTHM BORDERLINE LEFT AXIS DEVIATION LOW QRS VOLTAGE IN PRECORDIAL LEADS PATTERN CONSISTENT WITH PULMONARY DISEASE INCOMPLETE RIGHT BUNDLE BRANCH BLOCK Electronically Signed On 01-30-18 16:17:20 CDT by Carmen Joseph Specimen Performing Organization Address City/State/Zipcode Phone Number SMS after 12/26/2017 Insurance Type Payer Benefit Subscriber ID Effective Phone Address Plan / Dates Group [employer] [facility]-P [phone] [address] [id number] [place] [address]
[2019-03-24] MEDS ORDERED: IBUPROFEN 600 MG TAB PO STA (17:24)
--- NOTE | 2019-03-24 19:53 | Diagnostic Imaging Report ---
RIGHT HAND - 3 Image(s) RIGHT WRIST - 3 Image(s) HISTORY: Trauma, swollen COMPARISON: None available. FINDINGS: Bones: No acute displaced fracture. No aggressive osseous lesion. Ulnar minus variance. Joints: Osseous alignment is within normal limits and the joint spaces are well-maintained. Soft tissues: Diffuse scattered atherosclerotic vascular calcifications. IMPRESSION: No acute radiographic abnormality. Signed by: Dr. Bakari Katz D.O., M.M.M. on 03/24/2019 7:50 PM
== END 2019-03-24 20:16 | disposition home or self-care (01) ==
LOC: ER 16:54
DX: S63.521A Sprain of radiocarpal joint of right wrist, initial encounter (principal); W01.0XXA Fall on same level from slipping, tripping and stumbling without subsequent striking against object, initial encounter; Y92.008 Other place in unspecified non-institutional (private) residence as the place of occurrence of the external cause; J44.9 Chronic obstructive pulmonary disease, unspecified; K21.9 Gastro-esophageal reflux disease without esophagitis
CPT/HCPCS: 99284